=== PATIENT | female | born 1950 | race Caucasian/White ===

== ENCOUNTER 2016-06-29 08:22 | Inpatient (IN) | payer MEDICARE ==
[2016-06-29] MEDS ORDERED: SODIUM CHLORIDE 0.9% 500 ML IV STA (08:35)
[2016-06-29] MEDS ORDERED: IPRATROPIUM-ALBUTEROL 3 ML NEB INHALATION STA (08:36)
[2016-06-29] MEDS ORDERED: ONDANSETRON 4 MG/2 ML VIAL IVP STA (08:36)
--- NOTE | 2016-06-29 08:40 | ED ---
General Adult HPI - General Chief complaint: Shortness of Breath Stated complaint: SOB Time Seen by Provider: 06/29/16 08:25 Source: EMS, RN notes reviewed Mode of arrival: EMS Limitations: no limitations - History of Present Illness Initial comments: This is a 66-year-old female presents to the emergency department with a past medical history significant for coronary artery disease with stent placement, diabetes, high blood pressure, high cholesterol, a history of smoking, a previous CVA with right-sided residual paralysis. Patient comes in today because she woke up this morning had some difficulty breathing and seemed to resolve but then when she started to move around again the difficulty breathing began. Patient states she has had no recent fever or cough. Patient denies any chest pain. Patient states she's had quite a bit of postnasal drip however. Patient denies any abdominal pain patient denies vomiting but states she is nauseous. Patient denies any edema of the feet worse than normal. Patient denies any headache patient denies numbness weakness. Patient denies any lightheadedness dizziness or near syncopal episode. - Related Data Home Medications Medication Instructions Recorded Confirmed Clopidogrel [Plavix] 75 mg PO HS 06/12/15 06/29/16 Insulin Aspart [NovoLOG] 22 unit SQ AC-TID 12/10/15 06/29/16 Insulin Glargine [Lantus] 60 unit SQ HS 01/15/16 06/29/16 Diphenox-Atrop 2.5-0.025 mg 2 tab PO QID PRN 01/27/16 06/29/16 [Lomotil] Albuterol Sulfate [Proventil Hfa] 1 - 2 puff INHALATION RT-Q6H PRN 02/15/1610/10 Insulin Glargine [Lantus] 10 unit SQ AC-BRKFST 02/15/16 06/29/16 amLODIPine [Norvasc] 5 mg PO DAILY 02/18/16 06/29/16 Carvedilol [Coreg] 12.5 mg PO BID 03/23/16 06/29/16 Dicyclomine [Bentyl] 10 mg PO TID 06/16/16 06/29/16 Previous Rx's Medication Instructions Recorded Atorvastatin [Lipitor] 80 mg PO HS #30 tab 06/16/15 Pantoprazole Sodium [Protonix] 40 mg PO DAILY #30 tablet. 06/21/15 Aspirin 81 mg PO DAILY chew 08/28/15 Furosemide [Lasix] 40 mg PO DAILY #30 tab 08/28/15 Allergies Allergy/AdvReac Type Severity Reaction Status Date / Time hydralazine Allergy Mild Anaphylaxis Verified 06/29/16 09:51 codeine Allergy Nausea/ Verified 06/29/16 09:51 hard to wake up hydrocodone Allergy Unknown Verified 06/29/16 09:51 lisinopril Allergy Rapid Verified 06/29/16 09:51 Heart Rate Review of Systems ROS Statement: Those systems with pertinent positive or pertinent negative responses have been documented in the HPI. ROS Other: All systems not noted in ROS Statement are negative. Past Medical History Past Medical History: Asthma, Cancer, COPD, CVA/TIA, Diabetes Mellitus, Eye Disorder, Fibromyalgia, GI Bleed, Hyperlipidemia, Hypertension, Myocardial Infarction (IA), Osteoarthritis (OA), Pneumonia Additional Past Medical History / Comment(s): admitted to [facility] 06/18/15 to 06/21 with R femoral pseudoaneurysm which was thrombosed (had thrombin injection) and another small R femoral stable aneurysm, also acute renal failure. Pt had recent cardiac cath and R femoral PTCA with stenting of L main 06/15/15. ECHO done 06/13/15 showed mild mitral and tricuspid regurg, severe pulmonary HTN, L ventricular systolic function of 50-55%. IBS, EMPHYSEMA, UTERINE CA RADITIAON ONLY, ULCERS, STROKE 04-15-15- RT ARM FLACCID, RT LEG WEAK, low back pain x 30 yrs, migraines, was on thyroid medication as younger person and taken off, incontinent of urine-wears briefs.Pt stated has glaucoma, cataracts. Last Myocardial Infarction Date:: 06/12/15 History of Any Multi-Drug Resistant Organisms: None Reported Past Surgical History: Cholecystectomy, Heart Catheterization, Heart Catheterization With Stent Additional Past Surgical History / Comment(s): 06/12/15 Cardiac cath, 06/15/15 PTCA with stent mid L main, D&C X2, HAD A DEVICE IN FOR RADIATION TX FOR UTERINE CA THAT WAS SINCE REMOVED.EGD/COLONOSCOPY.02/18/16 heart cath 3 stents to rca Past Anesthesia/Blood Transfusion Reactions: Motion Sickness Additional Past Anesthesia/Blood Transfusion Reaction / Comment(s): CLAUSTROPHOBIA. spouse stated she has had blood transfusion in past-no reaction to blood Date of Last Stent Placement:: 06/15/15 Past Psychological History: Anxiety, Depression Additional Psychological History / Comment(s): Pt resides with her spouse. She is basically wheel chair bound most of the time for the past several yrs. She at times ambulates with assistance or pushes her wheelchair. She feeds herself. She has a supportive family. She has a sister that helps with her bathing and her олег and spouse will help with her medication. 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 Mother Family Medical History: CVA/TIA Additional Family Medical History / Comment(s): HEART PROBLEMS, STARTED DRINKING AFTER OF HER , she of a ruptured liver at age 58 yrs. General Exam - General Exam Comments Initial Comments: GENERAL: Patient is well-developed and well-nourished. Patient is nontoxic and well- hydrated and is in mild distress. ENT: Neck is soft and supple. No significant lymphadenopathy is noted. Oropharynx is clear. Moist mucous membranes. Neck has full range of motion without eliciting any pain. EYES: The sclera were anicteric and conjunctiva were pink and moist. Extraocular movements were intact and pupils were equal round and reactive to light. Eyelids were unremarkable. PULMONARY: Patient has diminished breath sounds throughout CARDIOVASCULAR: There is a regular rate and rhythm without any murmurs gallops or rubs. ABDOMEN: Soft and nontender with normal bowel sounds. No palpable organomegaly was noted. There is no palpable pulsatile mass. SKIN: Skin is clear with no lesions or rashes and otherwise unremarkable. NEUROLOGIC: Patient is alert and oriented x3. Cranial nerves II through XII are grossly intact. Patient is unable to move the right hand or the right foot. MUSCULOSKELETAL: Normal extremities with adequate strength and full range of motion. 1+ edema to the right leg slight edema to the left LYMPHATICS: No significant lymphadenopathy is noted PSYCHIATRIC: Normal psychiatric evaluation. Normal interpersonal interactions appears functionally intact in deals appropriately with others. No signs of depression. No signs of anxiety. Limitations: no limitations Course Vital Signs 06/29/16 06/29/16 06/29/16 08:23 08:31 08:34 Temperature 99.1 F Pulse Rate 84 Respiratory 20 20 Rate Blood Pressure 243/120 167/67 O2 Sat by Pulse 93 L 93 L Oximetry 06/29/16 06/29/16 08:55 09:05 Temperature Pulse Rate 78 73 Respiratory Rate Blood Pressure O2 Sat by Pulse Oximetry Medical Decision Making - Medical Decision Making EKG shows normal sinus rhythm at 80 bpm. It was 202 QRS is 82 QT interval 392 QTC is 452. Patient's EKG shows some T-wave inversions in leads 1 and aVL which are seen on the old EKG that I compared to. No changes from the old EKG are noted Chest x-ray shows acute pulmonary edema. I started the patient on Lasix and Nitropaste. I spoke with Dr. Carl he agreed to admit the patient reportedly or discontinue the Lasix and nitro paste on the floor. - Lab Data Result diagrams: 06/29/16 08:33 06/29/16 08:33 Lab Results 06/29/16 06/29/16 06/29/16 Range/Units 08:33 08:33 08:33 WBC 9.4 (3.8-10.6) k/uL RBC 4.09 (3.80-5.40) m/uL Hgb 9.8 L (11.4-16.0) gm/dL Hct 30.9 L (34.0-46.0) % MCV 75.5 L (80.0-100.0) fL MCH 23.9 L (25.0-35.0) pg MCHC 31.7 (31.0-37.0) g/dL RDW 15.6 H (11.5-15.5) % Plt Count 218 (150-450) k/uL Neutrophils % 84 % Lymphocytes % 8 % Monocytes % 3 % Eosinophils % 4 % Basophils % 0 % Neutrophils # 7.9 H (1.3-7.7) k/uL Lymphocytes # 0.8 L (1.0-4.8) k/uL Monocytes # 0.3 (0-1.0) k/uL Eosinophils # 0.4 (0-0.7) k/uL Basophils # 0.0 (0-0.2) k/uL Hypochromasia Marked Poikilocytosis Slight Microcytosis Slight PT (9.0-12.0) sec INR (<1.1) APTT (22.0-30.0) sec Sodium 143 (137-145) mmol/L Potassium 4.7 (3.5-5.1) mmol/L Chloride 105 (98-107) mmol/L Carbon Dioxide 24 (22-30) mmol/L Anion Gap 14 mmol/L BUN 32 H (7-17) mg/dL Creatinine 1.21 H (0.52-1.04) mg/dL Est GFR (MDRD) Af Amer 54 (>60 ml/min/1.73 sqM) Est GFR (MDRD) Non-Af 45 (>60 ml/min/1.73 sqM) Glucose 417 H (74-99) mg/dL Calcium 8.9 (8.4-10.2) mg/dL Magnesium 1.7 (1.6-2.3) mg/dL Total Bilirubin 0.6 (0.2-1.3) mg/dL AST 20 (14-36) U/L ALT 34 (9-52) U/L Alkaline Phosphatase 117 (38-126) U/L Total Creatine Kinase 63 (30-135) U/L CK-MB (CK-2) 1.1 (0.0-2.4) ng/mL CK-MB (CK-2) Rel Index 1.7 Troponin I <0.012 (0.000-0.034) ng/mL NT-Pro-B Natriuret Pep pg/mL Total Protein 6.5 (6.3-8.2) g/dL Albumin 3.4 L (3.5-5.0) g/dL 06/29/16 06/29/16 Range/Units 08:33 08:33 WBC (3.8-10.6) k/uL RBC (3.80-5.40) m/uL Hgb (11.4-16.0) gm/dL Hct (34.0-46.0) % MCV (80.0-100.0) fL MCH (25.0-35.0) pg MCHC (31.0-37.0) g/dL RDW (11.5-15.5) % Plt Count (150-450) k/uL Neutrophils % % Lymphocytes % % Monocytes % % Eosinophils % % Basophils % % Neutrophils # (1.3-7.7) k/uL Lymphocytes # (1.0-4.8) k/uL Monocytes # (0-1.0) k/uL Eosinophils # (0-0.7) k/uL Basophils # (0-0.2) k/uL Hypochromasia Poikilocytosis Microcytosis PT 10.9 (9.0-12.0) sec INR 1.1 (<1.1) APTT 25.4 (22.0-30.0) sec Sodium (137-145) mmol/L Potassium (3.5-5.1) mmol/L Chloride (98-107) mmol/L Carbon Dioxide (22-30) mmol/L Anion Gap mmol/L BUN (7-17) mg/dL Creatinine (0.52-1.04) mg/dL Est GFR (MDRD) Af Amer (>60 ml/min/1.73 sqM) Est GFR (MDRD) Non-Af (>60 ml/min/1.73 sqM) Glucose (74-99) mg/dL Calcium (8.4-10.2) mg/dL Magnesium (1.6-2.3) mg/dL Total Bilirubin (0.2-1.3) mg/dL AST (14-36) U/L ALT (9-52) U/L Alkaline Phosphatase (38-126) U/L Total Creatine Kinase (30-135) U/L CK-MB (CK-2) (0.0-2.4) ng/mL CK-MB (CK-2) Rel Index Troponin I (0.000-0.034) ng/mL NT-Pro-B Natriuret Pep 1810 pg/mL Total Protein (6.3-8.2) g/dL Albumin (3.5-5.0) g/dL Critical Care Time Critical Care Time: Yes Total Critical Care Time: 35 Disposition Clinical Impression: Acute pulmonary edema Disposition: ADMITTED IP TO THIS [facility] Time of Disposition: 10:17
[2016-06-29 08:55] LABS: Basophils % (A) 0 %; CH 22.8; CHCM 30.3; Eosinophils # (A) 0.4 k/uL (0-0.7); Eosinophils % (A) 4 %; HCT 30.9 % (34.0-46.0); HDW 3.72; HGB 9.8 gm/dL (11.4-16.0); Hypochromasia Marked; Luc # (Auto) 0.09; Luc % (Auto) 1; Lymphocytes # (A) 0.8 k/uL (1.0-4.8); Lymphocytes % (A) 8 %; MCH 23.9 pg (25.0-35.0); MCHC 31.7 g/dL (31.0-37.0); MCV 75.5 fL (80.0-100.0); Mean Platelet Volume 6.8; Microcytosis Slight; Monocytes # (A) 0.3 k/uL (0-1.0); Monocytes % (A) 3 %; Neutrophils # (A) 7.9 k/uL (1.3-7.7); Neutrophils % (A) 84 %; Poikilocytosis Slight; RBC 4.09 m/uL (3.80-5.40); RDW 15.6 % (11.5-15.5); WBC 9.4 k/uL (3.8-10.6)
[2016-06-29 09:07] LABS: INR 1.1 (<1.1); Partial Thromboplastin Time 25.4 sec (22.0-30.0); Prothrombin Time 10.9 sec (9.0-12.0)
[2016-06-29 09:28] LABS: Creatine Kinase 63 U/L (30-135)
[2016-06-29 09:31] LABS: Calcium 8.9 mg/dL (8.4-10.2); Magnesium 1.7 mg/dL (1.6-2.3); Potassium 4.7 mmol/L (3.5-5.1); Total Bilirubin 0.6 mg/dL (0.2-1.3); Total Protein 6.5 g/dL (6.3-8.2)
--- NOTE | 2016-06-29 09:35 | XR ---
EXAMINATION TYPE: XR chest 2V DATE OF EXAM: 06/29/2016 9:21 AM COMPARISON: Prior chest x-ray dated 01 February 2016 HISTORY: Difficulty breathing TECHNIQUE: Frontal and lateral views of the chest are obtained. FINDINGS: Some minimal blunting of the posterior costophrenic angles. Prominent lung findings could be degenerative of underlying COPD. Heart is enlarged. Interstitial and central vascularity are promi nent. No evident pneumothorax. IMPRESSION: Correlate for pulmonary venous hypertension and interstitial edema, there may be small e ffusion, basilar atelectasis, correlate to exclude pneumonia. Patient is rotated. Follow-up suggested .
[2016-06-29 09:41] LABS: Creatine Kinase MB 1.1 ng/mL (0.0-2.4); Troponin I <0.012 ng/mL (0.000-0.034)
[2016-06-29] MEDS ORDERED: FUROSEMIDE 10 MG/ML 10 ML VIAL IV STA (10:16)
[2016-06-29] MEDS ORDERED: NITROGLYCERIN OINT 1 INCH/GM PACKET TOPICAL STA (10:16)
[2016-06-29] MEDS ORDERED: INSULIN LISPRO (humaLOG) 300 UNIT/3 ML VIAL SQ ONE ×2 (11:00→13:00)
[2016-06-29] MEDS ORDERED: ACETAMINOPHEN TAB 500 MG TAB PO STA (11:06)
[2016-06-29 11:46] LABS: Glucose,Whole Blood 504 mg/dL (75-99)
[2016-06-29] MEDS: INSULIN LISPRO (humaLOG) 300 UNIT/3 ML VIAL SQ SCH ×2 (12:22→17:34)
[2016-06-29] MEDS ORDERED: LABETALOL SYRINGE 5 MG/ML IVP STA (12:47)
[2016-06-29 12:53] LABS: Glucose,Whole Blood 551 mg/dL (75-99)
[2016-06-29] MEDS: amLODIPine 5 MG TAB PO SCH (13:55)
[2016-06-29] MEDS: CARVEDILOL 12.5 MG TAB PO SCH ×2 (13:55→17:36)
[2016-06-29 14:06] LABS: Glucose,Whole Blood 525 mg/dL (75-99)
[2016-06-29] MEDS ORDERED: INSULIN REGULAR 100 UNIT/ML VIAL IV STA (14:22)
[2016-06-29 14:27] LABS: Hemoglobin A1C 9.5 % (4.2-6.1)
[2016-06-29 15:40] LABS: Glucose,Whole Blood 472 mg/dL (75-99)
[2016-06-29] MEDS ORDERED: INSULIN REGULAR 100 UNIT/ML VIAL SQ ONE (16:58)
[2016-06-29] MEDS ORDERED: DIPHENOX-ATROP 2.5-0.025 MG 1 EACH TAB PO PRN (17:01)
[2016-06-29] MEDS ORDERED: ALBUTEROL NEBULIZED 2.5 MG/3 ML INHALATION PRN (17:01)
[2016-06-29 17:05] LABS: Glucose,Whole Blood 450 mg/dL (75-99)
[2016-06-29] MEDS ORDERED: INSULIN LISPRO (humaLOG) 300 UNIT/3 ML VIAL SQ SCH (17:30)
[2016-06-29] MEDS: FUROSEMIDE 10 MG/ML 4 ML VIAL IV SCH ×2 (17:36→23:06)
[2016-06-29] MEDS ORDERED: ALPRAZolam 0.25 MG TAB PO PRN (18:25)
[2016-06-29] MEDS: NITROGLYCERIN OINT 1 INCH/GM PACKET TOPICAL SCH ×2 (18:44→22:06)
[2016-06-29] MEDS ORDERED: TEMAZEPAM 15 MG CAP PO PRN (19:03)
[2016-06-29 20:21] LABS: Glucose,Whole Blood 406 mg/dL (75-99)
[2016-06-29] MEDS ORDERED: NON-FORMULARY DRUG (Carvedilol [Coreg] 12.5 MG) PO SCH (21:00)
[2016-06-29] MEDS: INSULIN REGULAR 100 UNIT in SODIUM CHLORIDE 0.9% 100 ML IV SCH (21:56)
[2016-06-29] MEDS: DICYCLOMINE 10 MG CAP PO SCH ×2 (21:58→22:06)
[2016-06-29] MEDS: ATORVASTATIN 80 MG TAB PO SCH (21:58)
[2016-06-29] MEDS: CLOPIDOGREL 75 MG TAB PO SCH (21:58)
[2016-06-29 22:35] LABS: Glucose,Whole Blood 364 mg/dL (75-99)
[2016-06-29 23:12] LABS: Glucose,Whole Blood 337 mg/dL (75-99)
[2016-06-29 23:31] LABS: Appearance,Urine Cloudy (Clear); Bilirubin,Urine Negative (Negative); Glucose,Urine (UA) 2+ (Negative); Ketones,Urine Negative (Negative); Leukocyte Esterase,Urine Trace (Negative); Mucus,Urine Rare /hpf; Nitrite,Urine Negative (Negative); PH, Urine 5.5 (5.0-8.0); Particle Count 8312; Protein,Urine 2+ (Negative); RBC,Urine >182 /hpf (0-5); Squamous Epithelial Cell,Urine 1 /hpf (0-4); UA Billing (MACRO vs. MICRO) MICRO; Urobilinogen,Urine <2.0 mg/dL (<2.0); WBC,Urine 18 /hpf (0-5)
[2016-06-29 23:45] LABS: Glucose,Whole Blood 330 mg/dL (75-99)
[2016-06-29] MEDS: ACETAMINOPHEN TAB 500 MG TAB PO PRN (23:58)
[2016-06-30 00:22] LABS: Glucose,Whole Blood 306 mg/dL (75-99)
[2016-06-30 00:53] LABS: Glucose,Whole Blood 284 mg/dL (75-99)
[2016-06-30 01:26] LABS: Glucose,Whole Blood 279 mg/dL (75-99)
[2016-06-30 01:59] LABS: Glucose,Whole Blood 248 mg/dL (75-99)
[2016-06-30 03:07] LABS: Glucose,Whole Blood 208 mg/dL (75-99)
[2016-06-30 05:15] LABS: Glucose,Whole Blood 194 mg/dL (75-99)
[2016-06-30 06:19] LABS: Glucose,Whole Blood 233 mg/dL (75-99)
[2016-06-30 06:47] LABS: Basophils % (A) 0 %; CH 22.8; CHCM 30.5; Eosinophils % (A) 0 %; HCT 26.6 % (34.0-46.0); HDW 3.66; Hypochromasia Marked; Luc # (Auto) 0.14; Luc % (Auto) 1; Lymphocytes # (A) 0.9 k/uL (1.0-4.8); Lymphocytes % (A) 8 %; MCH 23.2 pg (25.0-35.0); Mean Platelet Volume 6.6; Microcytosis Slight; Monocytes # (A) 0.6 k/uL (0-1.0); Monocytes % (A) 6 %; Neutrophils % (A) 85 %; Poikilocytosis Slight; RBC 3.55 m/uL (3.80-5.40); RDW 15.8 % (11.5-15.5); WBC 10.7 k/uL (3.8-10.6); WBC (Perox) 10.84
[2016-06-30 06:49] LABS: HGB 8.2 gm/dL (11.4-16.0)
[2016-06-30] MEDS: PANTOPRAZOLE 40 MG TABLET PO SCH (07:00)
[2016-06-30] MEDS: CARVEDILOL 12.5 MG TAB PO SCH ×2 (07:00→17:42)
[2016-06-30 07:03] LABS: Calcium 9.3 mg/dL (8.4-10.2); Potassium 4.8 mmol/L (3.5-5.1)
--- NOTE | 2016-06-30 07:46 | HP ---
DATE OF ADMISSION: CHIEF COMPLAINT: Shortness of breath. HISTORY OF PRESENT ILLNESS: This 66-year-old woman with a past medical history of CHF, history of asthma, history of COPD, history of CVA, TIA, history of diabetes mellitus type 2, eye disorder, fibromyalgia, GI bleed, hyperlipidemia, hypertension, myocardial infarction, pneumonia being followed by Dr. Tyler Hermosillo in the outpatient setting was complaining of shortness of breath. The patient recently was admitted with uterine malignancy. [employer] oncology evaluation pending at this time. Currently, the patient complains of increased shortness of breath and the patient woke up this morning and the patient is unable to ambulate because of increasing shortness of breath. Patient came to [facility] and was admitted for further evaluation and treatment. The patient also had some postnasal drip, also some cough is also reported. The patient came to [facility] with complaints features of CHF and as well as some pleural effusion, mainly on the left side and atelectasis also noted. The patient was admitted further evaluation. After diuretics, patient is feeling much better now. No chest pain or palpitation, no fever. PAST MEDICAL HISTORY: History of asthma, history of CHF, COPD, CVA, TIA, diabetes mellitus type 2, eye disorder, fibromyalgia, GI bleed, hypertension, hyperlipidemia, myocardial infarction, history of DJD, history of pneumonia, history of history of cholecystectomy, history f CAD, stent, history of anxiety and depression. Medications prior to admission, home medications are: 1. Norvasc 5 mg p.o. daily. 2. Protonix 40 mg daily. 3. Lantus 10 units subcu a.c. breakfast and 60 units a.c. at bedtime. 4. NovoLog 22 units subcu a.c. t.i.d. 5. Lasix 40 mg p.o. daily. 6. Lomotil 2 tablets q.i.d. p.r.n. 7. Bentyl 10 mg p.o. t.i.d. 8. Plavix 75 mg q.h.s. 9. Coreg 12.5 mg p.o. b.i.d. 10. Lipitor 80 mg q.h.s. 11. Aspirin 81 mg p.o. daily. 12. Proventil 1 to 2 puffs q.6 p.r.n. Allergies are HYDRALAZINE, CODEINE, HYDROCODONE, LISINOPRIL. FAMILY HISTORY: History of CVA, TIA, history of EtOH, history of pancreatitis, liver cancer. SOCIAL HISTORY: History of smoking. No history of alcohol intake. REVIEW OF SYSTEMS: ENT: No diminished hearing or diminished vision. CARDIOVASCULAR SYSTEM: As mentioned earlier. RESPIRATORY: As mentioned earlier. GI: As mentioned earlier. : As mentioned earlier. NERVOUS SYSTEM: No numbness or weakness. ALLERGY/IMMUNOLOGY: No asthma or hayfever. MUSCULOSKELETAL: As mentioned earlier. HEMATOLOGY/ONCOLOGY: No history of anemia. ENDOCRINE: Diabetes mellitus. CONSTITUTIONAL: As mentioned earlier. DERMATOLOGY: Negative. RHEUMATOLOGY: Negative. PSYCHIATRY: As mentioned earlier. PHYSICAL EXAMINATION: The patient is alert and oriented x3. Pulse 81, blood pressure 157/74, respirations 18, temperature 97.4, pulse ox 91% on room air. HEENT: Conjunctivae normal. NECK: No jugular venous distention. CARDIOVASCULAR: S1 and S2, muffled. RESPIRATORY: Breath sounds diminished at the bases. Bilateral scattered rhonchi and crackles. Abdomen is soft, obese, nontender. No mass palpable. LEGS: No edema, no swelling. NERVOUS SYSTEM: Higher function as mentioned. Moves all 4 limbs. No focal deficits. LYMPHATICS: No lymphadenopathy of neck, axillae or groin. SKIN: No ulcers, rashes or bleeding. LABS: WBC 9.4, hemoglobin is 9.8 and creatinine is 1.2 and glucose 450. ASSESSMENT: 1. Shortness of breath with congestive heart failure, acute exacerbation ejection fraction 40% to 45% and acute on chronic systolic dysfunction. 2. Mild valvular abnormalities. 3. Diabetes mellitus type 2, uncontrolled. 4. Obesity, body mass index of 40.1. 5. History of recent anemia and genitourinary bleeding. 6. History of asthma, chronic obstructive pulmonary disease. 7. History of cerebrovascular accident/ transient ischemic attack. 8. Diabetes mellitus type 2. 9. Fibromyalgia. 10. History of gastrointestinal bleed. 11. Hypertension. 12. Hyperlipidemia. 13. History of myocardial infarction. 14. History of degenerative joint disease. 15. History of pneumonia. 16. History of femoral pseudoaneurysm. 17. Severe pulmonary hypertension. 18. History of irritable bowel syndrome. 19. History of gastric ulcer. 20. History of stroke and cerebrovascular accident. 21. History of cholecystectomy. 22. History of coronary artery disease and stent. 23. History of claustrophobia. 24. Anxiety, depression, not otherwise specified. 25. Remote history of nicotine dependence. 26. FULL CODE. RECOMMENDATIONS AND DISCUSSION: In this 66-year-old woman who presented with multiple complex medial issues, will monitor the patient closely. Continue the current medications. Continue symptomatic treatment. Will initiate IV Lasix 3 times daily. Continue the home medications. As far as the blood sugars are concerned, I would recommend to resume the home dose units of regular and if the blood sugar is not controlled I would recommend insulin drip until the blood sugars are like 200. Otherwise, resume the rest of the home medications. Cardiology consultation. Continue with beta blockers. Guarded prognosis because of multiple complex medical issues. Further recommendations to follow. Follow-up lab tests also have been ordered. A copy of dictation forwarded to Dr. Tyler Hermosillo who is the primary physician. [place]
[2016-06-30 08:14] LABS: Glucose,Whole Blood 264 mg/dL (75-99)
[2016-06-30] MEDS: FUROSEMIDE 10 MG/ML 4 ML VIAL IV SCH (08:32)
[2016-06-30] MEDS: DICYCLOMINE 10 MG CAP PO SCH ×4 (08:32→20:57)
[2016-06-30] MEDS: ASPIRIN 81 MG CHEW PO SCH (08:32)
[2016-06-30] MEDS: amLODIPine 5 MG TAB PO SCH (08:33)
[2016-06-30] MEDS: NITROGLYCERIN OINT 1 INCH/GM PACKET TOPICAL SCH ×4 (08:45→20:32)
[2016-06-30] MEDS: INSULIN LISPRO (humaLOG) 300 UNIT/3 ML VIAL SQ SCH ×3 (08:52→17:42)
[2016-06-30] MEDS ORDERED: amLODIPine 5 MG TAB PO SCH (09:00)
[2016-06-30 10:14] LABS: Glucose,Whole Blood 277 mg/dL (75-99)
--- NOTE | 2016-06-30 10:34 | P.CRDCN ---
History of Present Illness Consult date: 06/30/16 Requesting physician: Mike Carl Consult reason: shortness of breath Chief complaint: Shortness of breath History of present illness: This is a pleasant 66-year-old female who follows regularly with Dr. Ricci in the office area she has a known history of coronary artery disease with prior stent placement of the mid left main in 2014, most recently patient underwent successful stenting of the mid ,proximal and distal RCA in January 2016 , history of anemia, diabetes, hypertension, hyperlipidemia, who was recently in the hospital last month with acute blood loss anemia and GI bleed, she underwent an EGD and colonoscopy, EGD revealed gastritis and duodenitis, colonoscopy revealed sigmoid diverticulosis without active bleeding, external hemorrhoids with acute inflammation, internal hemorrhoids, and evidence of vaginal bleeding. Patient has also been evaluated as an outpatient for significant vaginal bleeding and has a history of cancer for which she was recommended a hysterectomy several years ago. Patient presents to the hospital with sudden onset of shortness of breath, she states that she got up in the morning, tried to get up to go to the bathroom and became extremely short of breath. If she would sit and rest her breathing was stable, however the moment she exerted herself she again became extremely short of breath. She denies any chest pain. She does state that last evening she had a large amount of vaginal bleeding. Hemoglobin on admission 9.8, down to 8.2 this morning. BUN yesterday 32 creatinine 1.2, 49 and 1.5 this morning. BNP level 1810, troponin 0.012. EKG on arrival showed a normal sinus rhythm with no acute changes. Chest x-ray suggested pulmonary venous hypertension and interstitial edema. Patient was initiated on IV Lasix in the emergency room, she states that she diuresed a significant amount through the night last night. Most recent echocardiogram with Doppler study was performed in January of last year which revealed an ejection fraction of 40-45%. I pressure this morning 148/60, heart rate, 92. At the time of my examination this morning, patient states her breathing is back to normal. She has had no further noted vaginal bleeding. Patient is currently on aspirin 81 mg daily, Plavix 75 mg daily, Lipitor 80 mg daily, Coreg 12-1/2 mg twice a day, 40 of Lasix IV every 8 hourly, Norvasc 5 mg daily, and a Nitropaste. Past Medical History Past Medical History: Asthma, Cancer, Heart Failure, COPD, CVA/TIA, Diabetes Mellitus, Eye Disorder, Fibromyalgia, GI Bleed, Hyperlipidemia, Hypertension, Myocardial Infarction (CA), Osteoarthritis (OA), Pneumonia Additional Past Medical History / Comment(s): Pt recently admitted on 06/20/16 with acute blood loss anemia, possible uterine lesion/cancer (pt has hx of uterine cancer tx with radiation), cystitis and vaginal bleeding. 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 Last Myocardial Infarction Date:: 06/12/15 History of Any Multi-Drug Resistant Organisms: None Reported Past Surgical History: Cholecystectomy, Heart Catheterization, Heart Catheterization With Stent Additional Past Surgical History / Comment(s): 06/12/15 Cardiac cath, 06/15/15 PTCA with stent mid L main, D&C X2, YRS AGO HAD A DEVICE IN FOR RADIATION TX FOR UTERINE CA THAT WAS SINCE REMOVED.EGD/COLONOSCOPY.02/18/16 heart cath 3 stents to rca Past Anesthesia/Blood Transfusion Reactions: Motion Sickness Additional Past Anesthesia/Blood Transfusion Reaction / Comment(s): CLAUSTROPHOBIA. Pt has had blood transfusion in past-no reaction to blood Date of Last Stent Placement:: 02/18/16 Past Psychological History: Anxiety, Depression Additional Psychological History / Comment(s): Pt resides with her spouse. She is basically wheel chair bound most of the time for the past several yrs. She at times ambulates with assistance or pushes her wheelchair. She feeds herself. She has a supportive family. She has a sister that helps with her bathing and her олег and spouse will help with her medication. 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 Mother Family Medical History: CVA/TIA Additional Family Medical History / Comment(s): HEART PROBLEMS, STARTED DRINKING AFTER OF HER , she of a ruptured liver at age 59 yrs. Medications and Allergies Home Medications Medication Instructions Recorded Confirmed Type Clopidogrel [Plavix] 75 mg PO HS 06/12/15 06/29/16 History Insulin Aspart [NovoLOG] 22 unit SQ AC-TID 12/10/15 06/29/16 History Insulin Glargine [Lantus] 60 unit SQ HS 01/15/16 06/29/16 History Diphenox-Atrop 2.5-0.025 mg 2 tab PO QID PRN 01/27/16 06/29/16 History [Lomotil] Albuterol Sulfate [Proventil Hfa] 1 - 2 puff INHALATION RT-Q6H PRN 02/15/1610/10 History Insulin Glargine [Lantus] 10 unit SQ AC-BRKFST 02/15/16 06/29/16 History amLODIPine [Norvasc] 5 mg PO DAILY 02/18/16 06/29/16 History Carvedilol [Coreg] 12.5 mg PO BID 03/23/16 06/29/16 History Dicyclomine [Bentyl] 10 mg PO TID 06/16/16 06/29/16 History Allergies Allergy/AdvReac Type Severity Reaction Status Date / Time hydralazine Allergy Mild Anaphylaxis Verified 06/29/16 09:51 codeine Allergy Nausea/ Verified 06/29/16 09:51 hard to wake up hydrocodone Allergy Unknown Verified 06/29/16 09:51 lisinopril Allergy Rapid Verified 06/29/16 09:51 Heart Rate Physical Exam Vitals: Vital Signs Temp Pulse Pulse Resp BP BP Pulse Ox 06/30/16 08:00 97.1 F L 69 18 148/62 92 L 06/30/16 04:00 70 16 158/69 94 L 06/30/16 00:00 81 18 161/69 96 06/29/16 20:45 98.2 F 80 18 153/99 97 06/29/16 16:45 97.4 F L 81 18 157/74 91 L 06/29/16 16:08 96.5 F L 06/29/16 15:40 82 16 164/71 97 06/29/16 14:13 77 18 157/67 95 06/29/16 14:08 78 16 166/70 96 06/29/16 13:49 87 18 190/79 95 06/29/16 13:05 74 18 188/77 97 06/29/16 11:13 184/78 06/29/16 10:55 79 17 220/83 94 L Intake and Output 06/29/16 06/30/16 06/30/16 22:59 06:59 14:59 Intake Total 370.302 365.395 13.787 Output Total 400 Balance 370.302 -34.605 13.787 Intake: Intake, IV Titration 10.302 65.395 13.787 Amount Insulin Regular 100 unit 10.302 65.395 13.787 In Sodium Chloride 0.9% 100 ml @ Titrate IV .Q0M [facility] Rx#:[id number] Oral 360 300 Output: Urine 400 Other: Voiding Method Toilet # Voids 1 1 Weight 101.3 kg PHYSICAL EXAMINATION: HEENT: Head is atraumatic, normocephalic. Pupils equal, round. Neck is supple. There is no elevated jugular venous pressure. HEART EXAMINATION: Heart S1, S2 normal. No murmur or gallop heard. CHEST EXAMINATION: Lungs are clear to auscultation and precussion. No chest wall tenderness is noted on palpation or with deep breathing. ABDOMEN: Soft, nontender. Bowel sounds are heard. No organomegaly noted. EXTREMITIES: 2+ peripheral pulses with no evidence of peripheral edema and no calf tenderness noted. NEUROLOGIC patient is awake, alert and oriented -3. . Results 06/30/16 05:45 06/30/16 05:45 CBC 06/30/16 Range/Units 05:45 WBC 10.7 H (3.8-10.6) k/uL RBC 3.55 L (3.80-5.40) m/uL Hgb 8.2 L D (11.4-16.0) gm/dL Hct 26.6 L (34.0-46.0) % Plt Count 221 (150-450) k/uL Comprehensive Metabolic Panel 06/30/16 Range/Units 05:45 Sodium 142 (137-145) mmol/L Potassium 4.8 (3.5-5.1) mmol/L Chloride 103 (98-107) mmol/L Carbon Dioxide 25 (22-30) mmol/L BUN 49 H (7-17) mg/dL Creatinine 1.55 H (0.52-1.04) mg/dL Glucose 196 H (74-99) mg/dL Calcium 9.3 (8.4-10.2) mg/dL Current Medications Generic Name Dose Route Start Last Admin Trade Name Freq PRN Reason Stop Dose Admin Acetaminophen 500 mg 06/29/16 15:46 06/29/16 23:58 Tylenol Tab PO 500 mg Q6HR PRN Administration Fever and/ or Pain Albuterol Sulfate 2.5 mg 06/29/16 17:01 Ventolin Nebulized INHALATION RT-Q6H PRN Shortness Of Breath Alprazolam 0.25 mg 06/29/16 18:25 Xanax PO QID PRN Anxiety Amlodipine Besylate 5 mg 06/29/16 13:30 06/30/16 08:33 Norvasc PO 5 mg DAILY DUSTIN Administration Aspirin 81 mg 06/30/16 09:00 06/30/16 08:32 Aspirin PO 81 mg DAILY DUSTIN Administration Atorvastatin Calcium 80 mg 06/29/16 21:00 06/29/16 21:58 Lipitor PO 80 mg HS DUSTIN Administration Carvedilol 12.5 mg 06/29/16 13:30 06/30/16 07:00 Coreg PO 12.5 mg BID-W/MEALS [facility] Administration Clopidogrel Bisulfate 75 mg 06/29/16 21:00 06/29/16 21:58 Plavix PO 75 mg HS [facility] Administration Dicyclomine HCl 10 mg 06/29/16 22:00 06/30/16 08:54 Bentyl PO Not Given TID [facility] Diphenoxylate HCl/Atropine 2 each 06/29/16 17:01 Lomotil PO QID PRN Diarrhea Furosemide 40 mg 06/29/16 17:00 06/30/16 08:32 Lasix IV 40 mg Q8HR DUSTIN Administration Insulin Human Regular 100 unit 101 mls @ 0 mls/hr 06/29/16 20:45 06/30/16 08: 18 / Sodium Chloride IV 8.5 unit/hr .Q0M DUSTIN 8.58 mls/hr Protocol Titration Titrate Insulin Glargine 10 unit 06/30/16 07:30 Lantus SQ AC-BRKFST DUSTIN Insulin Glargine 60 unit 06/29/16 21:00 Lantus SQ HS DUSTIN Insulin Human Lispro 0 unit 06/29/16 12:30 06/29/16 17:34 Humalog SQ 8 unit ACHS DUSTIN Administration Protocol Insulin Human Lispro 22 unit 06/30/16 07:30 Humalog SQ AC-TID DUSTIN Insulin Human Lispro 13 unit 06/30/16 07:30 06/30/16 08:52 Humalog SQ 13 unit AC-TID DUSTIN Administration Nitroglycerin 1 inch 06/29/16 18:00 06/30/16 08:45 Nitro-Bid Oint TOPICAL Not Given QID DUSTIN Pantoprazole Sodium 40 mg 06/30/16 07:30 06/30/16 07:00 Protonix PO 40 mg AC-BRKFST DUSTIN Administration Temazepam 15 mg 06/29/16 19:03 Restoril PO HS PRN Insomnia Intake and Output 06/29/16 06/30/16 06/30/16 22:59 06:59 14:59 Intake Total 370.302 365.395 13.787 Output Total 400 Balance 370.302 -34.605 13.787 Intake: Intake, IV Titration 10.302 65.395 13.787 Amount Insulin Regular 100 unit 10.302 65.395 13.787 In Sodium Chloride 0.9% 100 ml @ Titrate IV .Q0M [facility] Rx#:[id number] Oral 360 300 Output: Urine 400 Other: Voiding Method Toilet # Voids 1 1 Weight 101.3 kg 06/30/16 05:45 06/30/16 05:45 EKG Interpretations (text) EKG shows a normal sinus rhythm with no acute changes. Assessment and Plan Plan: Assessment and plan #1 symptoms of sudden onset of shortness of breath, likely secondary to anemia and mild congestive cardiac failure, systolic in nature. Patient diuresed well through the night on IV Lasix, creatinine 1.5 today. Most recent echocardiogram with Doppler study was performed in January of last year which revealed an ejection fraction of 40-45%. #2 anemia, hemoglobin 9.8 on admission, 8.2 this morning. #3 recent vaginal bleeding #4 recent admission with acute blood loss anemia, colonoscopy and EGD performed with major findings. #5 history of coronary artery disease with prior stenting of the left main in 2014, RCA stent performed in January of last year, patient is on aspirin and Plavix. 6 hypertension #7 diabetes #8 hyperlipidemia #9 history of uterine CA Plan From cardiology's perspective we will repeat an echocardiogram with Doppler study. We will also discontinue the IV Lasix and put the patient back on her oral diuretics. Continue aspirin and Plavix because of the recent stent placement in January. Recommend evaluation for vaginal bleeding. Patient is scheduled to see her [employer] I INSTRUCTIONAL ASSISTANT oncologist on the 16 of this month. Further recommendations to follow. DNP note has been reviewed, I agree with a documented findings and plan of care. Patient was seen and examined.
[2016-06-30 11:21] LABS: Glucose,Whole Blood 207 mg/dL (75-99)
--- NOTE | 2016-06-30 12:04 | ECHOF ---
Referral Reason:sob MEASUREMENTS -------- HEIGHT: 154.9 cm WEIGHT: 101.2 kg BP: 148/62 IVSd: 1.5 cm (0.6 - 1.1) LVIDd: 4.6 cm (3.9 - 5.3) LVPWd: 1.5 cm (0.6 - 1.1) IVSs: 2.1 cm LVIDs: 3.3 cm LVPWs: 1.9 cm Ao Diam: 2.8 cm (2.0 - 3.7) AV Cusp: 1.7 cm (1.5 - 2.6) LA Diam: 3.9 cm (2.7 - 3.8) MV EXCURSION: 17.180 mm (> 18.000) MV EF SLOPE: 79 mm/s (70 - 150) EPSS: 0.8 cm MV E Felipe: 1.31 m/s MV DecT: 249 ms MV A Felipe: 1.35 m/s MV E/A Ratio: 0.97 RAP: 10.00 mmHg RVSP: 22.29 mmHg FINDINGS -------- Sinus rhythm. This was a technically difficult study with suboptimal views. There is moderate concentric left ventricular hypertrophy. Overall left ventricular systolic function is normal with, an EF between 55 - 60 %. RV Promident The left atrium is normal in size. The right atrium is normal in size. 1.5mg of Definity was utilized for enhancement of images Aortic valve is trileaflet and is mildly thickened. The mitral valve leaflets are mildly thickened. Mild mitral regurgitation is present. Mild tricuspid regurgitation present. The right ventricular systolic pressure, as measured by Doppler, is 22.29mmHg. The aortic root size is normal. The inferior vena cava is mildly dilated. There is a trivial pericardial effusion present. CONCLUSIONS -------- 1. Sinus rhythm. 2. The mitral valve leaflets are mildly thickened. 3. Mild mitral regurgitation is present. 4. Mild tricuspid regurgitation present. 5. The right ventricular systolic pressure, as measured by Doppler, is 22.29mmHg. 6. The aortic root size is normal. 7. The inferior vena cava is mildly dilated. 8. There is a trivial pericardial effusion present. 9. This was a technically difficult study with suboptimal views. 10. There is moderate concentric left ventricular hypertrophy. 11. Overall left ventricular systolic function is normal with, an EF between 55 - 60 %. 12. RV Promident 13. The left atrium is normal in size. 14. The right atrium is normal in size. 15. 1.5mg of Definity was utilized for enhancement of images 16. Aortic valve is trileaflet and is mildly thickened. LOSS CONTROL CONSULTANT: Salima Myers RDCS
[2016-06-30 12:21] LABS: Glucose,Whole Blood 163 mg/dL (75-99)
[2016-06-30] MEDS: INSULIN REGULAR 100 UNIT in SODIUM CHLORIDE 0.9% 100 ML IV SCH (12:21)
[2016-06-30 14:15] VITALS: BMI 42.2
[2016-06-30 14:23] LABS: Glucose,Whole Blood 198 mg/dL (75-99)
[2016-06-30 15:28] LABS: Glucose,Whole Blood 201 mg/dL (75-99)
[2016-06-30] MEDS ORDERED: LORazepam 1 MG TAB PO PRN (15:36)
[2016-06-30] MEDS: FUROSEMIDE 40 MG TAB PO SCH (15:44)
[2016-06-30 16:21] LABS: Glucose,Whole Blood 172 mg/dL (75-99)
[2016-06-30 18:12] LABS: Glucose,Whole Blood 172 mg/dL (75-99)
[2016-06-30 19:32] LABS: Anisocytosis Slight; CH 23.2; CHCM 30.6; HCT 27.2 % (34.0-46.0); HDW 3.54; HGB 8.2 gm/dL (11.4-16.0); Hypochromasia Marked; MCH 23.1 pg (25.0-35.0); MCHC 30.3 g/dL (31.0-37.0); MCV 76.2 fL (80.0-100.0); Mean Platelet Volume 8.8; Microcytosis Slight; Poikilocytosis Slight; RBC 3.57 m/uL (3.80-5.40); RDW 16.3 % (11.5-15.5)
[2016-06-30 19:56] LABS: Glucose,Whole Blood 234 mg/dL (75-99)
[2016-06-30] MEDS: ATORVASTATIN 80 MG TAB PO SCH (21:01)
[2016-06-30] MEDS: CLOPIDOGREL 75 MG TAB PO SCH (21:01)
[2016-06-30] MEDS: ACETAMINOPHEN TAB 500 MG TAB PO PRN (21:01)
[2016-06-30 22:17] LABS: Glucose,Whole Blood 108 mg/dL (75-99)
[2016-06-30] MEDS: NYSTATIN 100,000 UNIT/GM POWD 15 GM TOPICAL SCH (23:30)
[2016-06-30 23:31] LABS: Glucose,Whole Blood 120 mg/dL (75-99)
[2016-07-01 00:34] LABS: Glucose,Whole Blood 167 mg/dL (75-99)
[2016-07-01 03:44] LABS: Glucose,Whole Blood 176 mg/dL (75-99)
[2016-07-01] MEDS: ACETAMINOPHEN TAB 500 MG TAB PO PRN ×2 (05:29→12:16)
[2016-07-01 05:57] LABS: Glucose,Whole Blood 156 mg/dL (75-99)
[2016-07-01 06:27] LABS: Anisocytosis Slight; Basophils # (A) 0.1 k/uL (0-0.2); Basophils % (A) 1 %; CH 23.2; CHCM 30.2; Eosinophils # (A) 0.3 k/uL (0-0.7); Eosinophils % (A) 3 %; HCT 27.2 % (34.0-46.0); HDW 3.43; HGB 8.2 gm/dL (11.4-16.0); Hypochromasia Marked; Luc # (Auto) 0.13; Luc % (Auto) 2; Lymphocytes # (A) 1.7 k/uL (1.0-4.8); Lymphocytes % (A) 20 %; MCH 23.3 pg (25.0-35.0); MCHC 30.2 g/dL (31.0-37.0); MCV 77.1 fL (80.0-100.0); Mean Platelet Volume 7.7; Microcytosis Slight; Monocytes # (A) 0.4 k/uL (0-1.0); Monocytes % (A) 5 %; Neutrophils # (A) 5.8 k/uL (1.3-7.7); Neutrophils % (A) 70 %; Poikilocytosis Slight; RBC 3.53 m/uL (3.80-5.40); RDW 16.3 % (11.5-15.5); WBC 8.3 k/uL (3.8-10.6); WBC (Perox) 8.62
[2016-07-01 06:40] LABS: Potassium 3.8 mmol/L (3.5-5.1)
[2016-07-01] MEDS: CARVEDILOL 12.5 MG TAB PO SCH ×2 (06:42→21:30)
[2016-07-01] MEDS: PANTOPRAZOLE 40 MG TABLET PO SCH (06:42)
[2016-07-01] MEDS: INSULIN LISPRO (humaLOG) 300 UNIT/3 ML VIAL SQ SCH ×8 (07:40→23:42)
[2016-07-01 08:33] LABS: Glucose,Whole Blood 150 mg/dL (75-99)
[2016-07-01] MEDS: DICYCLOMINE 10 MG CAP PO SCH ×3 (09:50→21:32)
[2016-07-01 10:10] LABS: Glucose,Whole Blood 159 mg/dL (75-99)
--- NOTE | 2016-07-01 10:25 | PN ---
DATE OF SERVICE: 06/30/2016 This 66-year-old woman who was admitted with shortness of breath had possible CHF acute exacerbation. The patient is improving significantly. No chest pain or palpitation. No fever. A 2-D echo done today showed ejection fraction of 55% to 60%. Cardiology evaluation in progress at this time. The patient is also complaining of bleeding. PHYSICAL EXAM: Patient is alert and oriented x3. Pulse is 71, blood pressure 155/69, respirations 18, temperature 97.9, pulse ox 100% on room air. HEENT: Conjunctivae normal. NECK: No jugular venous distension. CARDIOVASCULAR: S1 and S2 muffled. RESPIRATORY: Breath sounds diminished in the bases. A few rhonchi, no crackles. Abdomen is soft, nontender. LEGS: No edema. NERVOUS SYSTEM: Nonfocal. Labs are WBC 10, hemoglobin is 8.2. Otherwise creatinine is 1.55. UA noted. ASSESSMENT: 1. Shortness of breath, possible congestive heart failure acute exacerbation with acute on chronic diastolic dysfunction, ejection fraction 55% to 60%, which is normal on the most recent 2-dimensional echocardiogram. 2. Continued vaginal bleeding with acute on chronic blood loss anemia CKD stage 3 3. Mild valvular abnormalities. 4. Diabetes mellitus type 2, uncontrolled. 5. Obesity, body mass index of 40.1. 6. History of recent anemia and genitourinary bleeding. 7. History of asthma, chronic obstructive pulmonary disease. 8. History of cerebrovascular accident, transient ischemic attack. 9. Diabetes mellitus type 2. 10. Fibromyalgia. 11. History of gastrointestinal bleed. 12. Hypertension. 13. Hyperlipidemia. 14. Myocardial infarction. 15. History of degenerative joint disease. 16. History of pneumonia. 17. History of femoral pseudoaneurysm. 18. Severe pulmonary hypertension history. 19. History of irritable bowel syndrome. 20. History of gastric ulcer. 21. History of stroke and cerebrovascular accident. 22. History of cholecystectomy. 23. History of coronary artery disease and stent. 24. History of claustrophobia. 25. History of anxiety and depression, not otherwise specified. 26. Remote history of nicotine dependence. 27. FULL CODE. RECOMMENDATIONS AND DISCUSSION: Continue with current medications. Continue with current monitoring. Continue with diuretics. Monitor creatinine closely. Otherwise, closely follow with Cardiology. Guarded prognosis because of multiple complex medical issues. Further recommendations to follow. MTDD
[2016-07-01] MEDS: NYSTATIN 100,000 UNIT/GM POWD 15 GM TOPICAL SCH ×2 (11:00→21:31)
[2016-07-01] MEDS: amLODIPine 5 MG TAB PO SCH (11:01)
[2016-07-01] MEDS: ASPIRIN 81 MG CHEW PO SCH (11:01)
[2016-07-01] MEDS: NITROGLYCERIN OINT 1 INCH/GM PACKET TOPICAL SCH (11:05)
[2016-07-01 12:00] LABS: Glucose,Whole Blood 189 mg/dL (75-99)
--- NOTE | 2016-07-01 12:25 | CDI ---
In responding to this query, please exercise your independent professional judgment. The [facility] Coding Staff and Clinical Documentation Specialists appreciate your assistance in clarifying documentation, maintaining compliance with coding guidelines, accurately documenting patients condition and capturing severity of illness. The fact that a question is asked does not imply that any particular answer is desired or expected. Communication forms are a method of clarifying documentation and are not made part of the Legal Health Record. Thank you in advance for your clarification. Last Revision, April 2015 Reynaldo Salas [address] [facility] [place] [address] Documentation Clarification Form Date: 07/01/2016 12:12:00 PM From: Barb Wilcox Admit Date: 06/29/2016 10:17:00 AM Patient Name: Rossi Singh Visit Number: [id number] Dr. Joy Ferrer Patient history/risk factors: Recent Anemia Uterine malignancy Complaining of continued vaginal bleeding Clinical Indicators: Hemoglobin: 9.8 on 06/29,8.2 on 06/30 Hematocrit: 30.9 on 06/29, 27.2 on 06/30 Treatment: IV fluid bolus given on 06/29 Lab monitoring In order to capture the severity of condition, please clarify if this signifies one or more diagnoses listed below: Acute blood loss anemia Acute on chronic blood loss anemia Chronic blood loss anemia Iron deficiency anemia Anemia due to malignancy Unable to determine Other, please specify Please document in your progress notes and discharge summary in order to capture severity of illness and risk of mortality. Include clinical findings that support your diagnosis. FYI: Press F11 to launch patient chart. Place X here if this finding has no clinical significance, is not applicable or if you are not able to provide any additional documentation. [place]
--- NOTE | 2016-07-01 12:34 | CDI ---
In responding to this query, please exercise your independent professional judgment. The [facility] Coding Staff and Clinical Documentation Specialists appreciate your assistance in clarifying documentation, maintaining compliance with coding guidelines, accurately documenting patients condition and capturing severity of illness. The fact that a question is asked does not imply that any particular answer is desired or expected. Communication forms are a method of clarifying documentation and are not made part of the Legal Health Record. Thank you in advance for your clarification. Last Revision, April 2015 Reynaldo Salas [address] [facility] [place] [address] Documentation Clarification Form Date: 07/01/2016 12:26:00 PM From: Barb Patsreedhar Admit Date: 06/29/2016 10:17:00 AM Patient Name: Rossi Singh Visit Number: [id number] Dr. Joy Ferrer Patient presents with a BUN/CR/GFR of: 32/1.21/45 On 06/30 BUN/CR/GFR was 49/1.55/34 On 07/01 BUN/CR/GFR was 59/1.70/30 History/Risk Factors: Admitted with possible acute CHF exacerbation Receiving IV Lasix Uncontrolled DM type 2 Hypertension Recent Anemia Vaginal bleeding Clinical Indicators: see labs as above Treatment: Consults: Cardiology, Gynecology IV fluid bolus given on 06/29 In order to capture the severity of condition, please clarify if the condition signifies: Acute renal failure Acute on chronic renal failure Chronic kidney disease (CKD) and please stage Stage 3 GFR 30-59 Other Stage (please specify) Unable to determine Other, specify Please document in your progress notes and discharge summary in order to capture severity of illness and risk of mortality. Include clinical findings that support your diagnosis. FYI: Press F11 to launch patient chart. Place X here if this finding has no clinical significance, is not applicable or if you are not able to provide any additional documentation. [place]
--- NOTE | 2016-07-01 13:41 | P.OBCN ---
History of Present Illness Consult date: 07/01/16 Chief complaint: post menopausal bleeding History of present illness: Varsha a 66-year-old female who has had post menopausal bleeding now for several months. I did see her approximately 10 days ago at that time she was not having much bleeding or going to see her outpatient to schedule a D&C. However since that time she has been readmitted for vaginal bleeding and her hemoglobin is again dropped we'll plan to do a D&C hysteroscopy tonight. Risks/benefits/ alternatives were reviewed with the patient and her family. Reviewing her ultrasound she did have a 1.6 cm thickened endometrium near the lower uterine segment unclear if this is a polyp which could be causing bleeding or if she has something cancerous or precancerous present. This will need to be defined by tissue sampling which again will be obtained tonight. We will plan to repeat the Pap smear as that showed ASCUS but it was a limited sample due to positioning of the patient. All the questions are answered for her at this time we'll plan to do a D&C this evening. No other changes to her history and physical from her previous visit Past Medical History Past Medical History: Asthma, Cancer, Heart Failure, COPD, CVA/TIA, Diabetes Mellitus, Eye Disorder, Fibromyalgia, GI Bleed, Hyperlipidemia, Hypertension, Myocardial Infarction ([place]), Osteoarthritis (OA), Pneumonia Additional Past Medical History / Comment(s): Pt recently admitted on 06/20/16 with acute blood loss anemia, possible uterine lesion/cancer (pt has hx of uterine cancer tx with radiation), cystitis and vaginal bleeding. 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 Last Myocardial Infarction Date:: 06/12/15 History of Any Multi-Drug Resistant Organisms: None Reported Past Surgical History: Cholecystectomy, Heart Catheterization, Heart Catheterization With Stent Additional Past Surgical History / Comment(s): 06/12/15 Cardiac cath, 06/15/15 PTCA with stent mid L main, D&C X2, YRS AGO HAD A DEVICE IN FOR RADIATION TX FOR UTERINE CA THAT WAS SINCE REMOVED.EGD/COLONOSCOPY.02/18/16 heart cath 3 stents to rca Past Anesthesia/Blood Transfusion Reactions: Motion Sickness Additional Past Anesthesia/Blood Transfusion Reaction / Comm: CLAUSTROPHOBIA. Pt has had blood transfusion in past-no reaction to blood Date of Last Stent Placement:: 02/18/16 Past Psychological History: Anxiety, Depression Additional Psychological History / Comment(s): Pt resides with her spouse. She is basically wheel chair bound most of the time for the past several yrs. She at times ambulates with assistance or pushes her wheelchair. She feeds herself. She has a supportive family. She has a sister that helps with her bathing and her олег and spouse will help with her medication. 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 Mother Family Medical History: CVA/TIA Additional Family Medical History / Comment(s): HEART PROBLEMS, STARTED DRINKING AFTER OF HER , she of a ruptured liver at age 58 yrs. Medications and Allergies Home Medications Medication Instructions Recorded Confirmed Type Clopidogrel [Plavix] 75 mg PO HS 06/12/15 06/29/16 History Insulin Aspart [NovoLOG] 22 unit SQ AC-TID 12/10/15 06/29/16 History Insulin Glargine [Lantus] 60 unit SQ HS 01/15/16 06/29/16 History Diphenox-Atrop 2.5-0.025 mg 2 tab PO QID PRN 01/27/16 06/29/16 History [Lomotil] Albuterol Sulfate [Proventil Hfa] 1 - 2 puff INHALATION RT-Q6H PRN 02/15/1610/10 History Insulin Glargine [Lantus] 10 unit SQ AC-BRKFST 02/15/16 06/29/16 History amLODIPine [Norvasc] 5 mg PO DAILY 02/18/16 06/29/16 History Carvedilol [Coreg] 12.5 mg PO BID 03/23/16 06/29/16 History Dicyclomine [Bentyl] 10 mg PO TID 06/16/16 06/29/16 History Allergies Allergy/AdvReac Type Severity Reaction Status Date / Time hydralazine Allergy Mild Anaphylaxis Verified 06/29/16 09:51 codeine Allergy Nausea/ Verified 06/29/16 09:51 hard to wake up hydrocodone Allergy Unknown Verified 06/29/16 09:51 lisinopril Allergy Rapid Verified 06/29/16 09:51 Heart Rate Exam Osteopathic Statement: *. No significant issues noted on an osteopathic structural exam other than those noted in the History and Physical/Consult. - Vital Signs Vital signs: Vital Signs Temp Pulse Resp BP Pulse Ox 07/01/16 12:00 65 18 150/66 96 07/01/16 08:00 98.1 F 66 18 164/68 90 L 07/01/16 04:00 70 16 153/67 96 07/01/16 00:00 98.1 F 61 16 123/44 95 06/30/16 20:00 97.8 F 71 18 155/67 100 06/30/16 16:00 69 18 138/53 97 Intake and Output 06/30/16 07/01/16 07/01/16 22:59 06:59 14:59 Intake Total 253.129 217.553 13.128 Output Total 800 Balance -546.871 217.553 13.128 Intake: IV 200 .9 200 Intake, IV Titration 33.129 17.553 13.128 Amount Insulin Regular 100 unit 33.129 17.553 13.128 In Sodium Chloride 0.9% 100 ml @ Titrate IV .Q0M [facility] Rx#:[id number] Oral 220 Output: Urine 800 Other: Voiding Method Bedside Commode Bedside Commode # Voids 1 1 Weight 101.1 kg Results Result Diagrams: 07/01/16 05:34 07/01/16 05:34 Abnormal Lab Results - Last 24 Hours (Table) 06/30/16 06/30/16 06/30/16 Range/Units 14:20 15:26 16:19 RBC (3.80-5.40) m/uL Hgb (11.4-16.0) gm/dL Hct (34.0-46.0) % MCV (80.0-100.0) fL MCH (25.0-35.0) pg MCHC (31.0-37.0) g/dL RDW (11.5-15.5) % BUN (7-17) mg/dL Creatinine (0.52-1.04) mg/dL Glucose (74-99) mg/dL POC Glucose (mg/dL) 198 H 201 H 172 H (75-99) mg/dL 06/30/16 06/30/16 06/30/16 Range/Units 18:10 19:22 19:55 RBC 3.57 L (3.80-5.40) m/uL Hgb 8.2 L (11.4-16.0) gm/dL Hct 27.2 L (34.0-46.0) % MCV 76.2 L (80.0-100.0) fL MCH 23.1 L (25.0-35.0) pg MCHC 30.3 L (31.0-37.0) g/dL RDW 16.3 H (11.5-15.5) % BUN (7-17) mg/dL Creatinine (0.52-1.04) mg/dL Glucose (74-99) mg/dL POC Glucose (mg/dL) 172 H 234 H (75-99) mg/dL 06/30/16 06/30/16 07/01/16 Range/Units 22:16 23:29 00:33 RBC (3.80-5.40) m/uL Hgb (11.4-16.0) gm/dL Hct (34.0-46.0) % MCV (80.0-100.0) fL MCH (25.0-35.0) pg MCHC (31.0-37.0) g/dL RDW (11.5-15.5) % BUN (7-17) mg/dL Creatinine (0.52-1.04) mg/dL Glucose (74-99) mg/dL POC Glucose (mg/dL) 108 H 120 H 167 H (75-99) mg/dL 0107/01/16 07/01/16 Range/Units 03:40 05:34 05:34 RBC 3.53 L (3.80-5.40) m/uL Hgb 8.2 L (11.4-16.0) gm/dL Hct 27.2 L (34.0-46.0) % MCV 77.1 L (80.0-100.0) fL MCH 23.3 L (25.0-35.0) pg MCHC 30.2 L (31.0-37.0) g/dL RDW 16.3 H (11.5-15.5) % BUN 59 H (7-17) mg/dL Creatinine 1.70 H (0.52-1.04) mg/dL Glucose 156 H (74-99) mg/dL POC Glucose (mg/dL) 176 H (75-99) mg/dL 07/01/16 07/01/16 07/01/16 Range/Units 05:55 08:30 10:07 RBC (3.80-5.40) m/uL Hgb (11.4-16.0) gm/dL Hct (34.0-46.0) % MCV (80.0-100.0) fL MCH (25.0-35.0) pg MCHC (31.0-37.0) g/dL RDW (11.5-15.5) % BUN (7-17) mg/dL Creatinine (0.52-1.04) mg/dL Glucose (74-99) mg/dL POC Glucose (mg/dL) 156 H 150 H 159 H (75-99) mg/dL 07/01/16 Range/Units 11:56 RBC (3.80-5.40) m/uL Hgb (11.4-16.0) gm/dL Hct (34.0-46.0) % MCV (80.0-100.0) fL MCH (25.0-35.0) pg MCHC (31.0-37.0) g/dL RDW (11.5-15.5) % BUN (7-17) mg/dL Creatinine (0.52-1.04) mg/dL Glucose (74-99) mg/dL POC Glucose (mg/dL) 189 H (75-99) mg/dL
[2016-07-01 13:59] LABS: Glucose,Whole Blood 179 mg/dL (75-99)
--- NOTE | 2016-07-01 14:12 | P.PN ---
Subjective Principal diagnosis: Shortness of breath This is a pleasant 66-year-old female who follows regularly with Dr. Ricci in the office area she has a known history of coronary artery disease with prior stent placement of the mid left main in 2014, most recently patient underwent successful stenting of the mid ,proximal and distal RCA in January 2016 , history of anemia, diabetes, hypertension, hyperlipidemia, who was recently in the hospital last month with acute blood loss anemia and GI bleed, she underwent an EGD and colonoscopy, EGD revealed gastritis and duodenitis, colonoscopy revealed sigmoid diverticulosis without active bleeding, external hemorrhoids with acute inflammation, internal hemorrhoids, and evidence of vaginal bleeding. Patient has also been evaluated as an outpatient for significant vaginal bleeding and has a history of cancer for which she was recommended a hysterectomy several years ago. Patient presents to the hospital with sudden onset of shortness of breath, she states that she got up in the morning, tried to get up to go to the bathroom and became extremely short of breath. If she would sit and rest her breathing was stable, however the moment she exerted herself she again became extremely short of breath. She denies any chest pain. Patient also states that she had had a significant amount of vaginal bleeding at home the night prior to coming in. Hemoglobin on admission was 9.8, 8.2 this morning. Patient was initially diuresed with IV Lasix, the IV Lasix was discontinued and patient was placed on oral diuretics. Creatinine today is 1.7. She is scheduled for a D&C today. Objective - Vital Signs Vital signs: Vital Signs Temp 98.1 F 07/01/16 08:00 Pulse 65 07/01/16 12:00 Resp 18 07/01/16 12:00 BP 150/66 07/01/16 12:00 Pulse Ox 96 07/01/16 12:00 Intake & Output 06/30/16 07/01/16 07/01/16 18:59 06:59 18:59 Intake Total 955.487 236.861 13.128 Output Total 800 Balance 155.487 236.861 13.128 Weight 101.3 kg 101.1 kg Intake: IV 450 200 .9 400 200 Insulin Regular 100 unit 50 In Sodium Chloride 0.9% 100 ml @ Titrate IV .Q0M [facility] Rx#:[id number] Intake, IV Titration 45.487 36.861 13.128 Amount Insulin Regular 100 unit 45.487 36.861 13.128 In Sodium Chloride 0.9% 100 ml @ Titrate IV .Q0M [facility] Rx#:[id number] Oral 460 Output: Urine 800 Other: Voiding Method Bedside Commode # Voids 1 - Exam PHYSICAL EXAMINATION: HEENT: Head is atraumatic, normocephalic. Pupils equal, round. Neck is supple. There is no elevated jugular venous pressure. HEART EXAMINATION: Heart S1, S2 normal. No murmur or gallop heard. CHEST EXAMINATION: Lungs are clear to auscultation and precussion. No chest wall tenderness is noted on palpation or with deep breathing. ABDOMEN: Soft, nontender. Bowel sounds are heard. No organomegaly noted. EXTREMITIES: 2+ peripheral pulses with no evidence of peripheral edema and no calf tenderness noted. NEUROLOGIC patient is awake, alert and oriented -3. - Labs CBC & Chem 7: 07/01/16 05:34 07/01/16 05:34 Labs: Abnormal Lab Results - Last 24 Hours (Table) 06/30/16 06/30/16 06/30/16 Range/Units 14:20 15:26 16:19 RBC (3.80-5.40) m/uL Hgb (11.4-16.0) gm/dL Hct (34.0-46.0) % MCV (80.0-100.0) fL MCH (25.0-35.0) pg MCHC (31.0-37.0) g/dL RDW (11.5-15.5) % BUN (7-17) mg/dL Creatinine (0.52-1.04) mg/dL Glucose (74-99) mg/dL POC Glucose (mg/dL) 198 H 201 H 172 H (75-99) mg/dL 06/30/16 06/30/16 06/30/16 Range/Units 18:10 19:22 19:55 RBC 3.57 L (3.80-5.40) m/uL Hgb 8.2 L (11.4-16.0) gm/dL Hct 27.2 L (34.0-46.0) % MCV 76.2 L (80.0-100.0) fL MCH 23.1 L (25.0-35.0) pg MCHC 30.3 L (31.0-37.0) g/dL RDW 16.3 H (11.5-15.5) % BUN (7-17) mg/dL Creatinine (0.52-1.04) mg/dL Glucose (74-99) mg/dL POC Glucose (mg/dL) 172 H 234 H (75-99) mg/dL 06/30/16 06/30/16 07/01/16 Range/Units 22:16 23:29 00:33 RBC (3.80-5.40) m/uL Hgb (11.4-16.0) gm/dL Hct (34.0-46.0) % MCV (80.0-100.0) fL MCH (25.0-35.0) pg MCHC (31.0-37.0) g/dL RDW (11.5-15.5) % BUN (7-17) mg/dL Creatinine (0.52-1.04) mg/dL Glucose (74-99) mg/dL POC Glucose (mg/dL) 108 H 120 H 167 H (75-99) mg/dL 07/01/16 07/01/16 07/01/16 Range/Units 03:40 05:34 05:34 RBC 3.53 L (3.80-5.40) m/uL Hgb 8.2 L (11.4-16.0) gm/dL Hct 27.2 L (34.0-46.0) % MCV 77.1 L (80.0-100.0) fL MCH 23.3 L (25.0-35.0) pg MCHC 30.2 L (31.0-37.0) g/dL RDW 16.3 H (11.5-15.5) % BUN 59 H (7-17) mg/dL Creatinine 1.70 H (0.52-1.04) mg/dL Glucose 156 H (74-99) mg/dL POC Glucose (mg/dL) 176 H (75-99) mg/dL 07/01/16 07/01/16 07/01/16 Range/Units 05:55 08:30 10:07 RBC (3.80-5.40) m/uL Hgb (11.4-16.0) gm/dL Hct (34.0-46.0) % MCV (80.0-100.0) fL MCH (25.0-35.0) pg MCHC (31.0-37.0) g/dL RDW (11.5-15.5) % BUN (7-17) mg/dL Creatinine (0.52-1.04) mg/dL Glucose (74-99) mg/dL POC Glucose (mg/dL) 156 H 150 H 159 H (75-99) mg/dL 07/01/16 07/01/16 Range/Units 11:56 13:57 RBC (3.80-5.40) m/uL Hgb (11.4-16.0) gm/dL Hct (34.0-46.0) % MCV (80.0-100.0) fL MCH (25.0-35.0) pg MCHC (31.0-37.0) g/dL RDW (11.5-15.5) % BUN (7-17) mg/dL Creatinine (0.52-1.04) mg/dL Glucose (74-99) mg/dL POC Glucose (mg/dL) 189 H 179 H (75-99) mg/dL Assessment and Plan Plan: Assessment and plan #1 symptoms of sudden onset of shortness of breath, likely secondary to anemia and mild congestive cardiac failure, systolic in nature. Most recent echocardiogram with Doppler study was performed in January of last year which revealed an ejection fraction of 40-45%. I released on Lasix, creatinine 1.7 today. #2 anemia, hemoglobin 9.8 on admission, 8.2 this morning. #3 recent vaginal bleeding #4 recent admission with acute blood loss anemia, colonoscopy and EGD performed with major findings. #5 history of coronary artery disease with prior stenting of the left main in 2014, RCA stent performed in January of last year, patient is on aspirin and Plavix. 6 hypertension #7 diabetes #8 hyperlipidemia #9 history of uterine CA Plan From cardiology's perspective, we will hold the patient's Lasix for one day today. Continue her other medications including aspirin and Plavix. She is scheduled for a D&C today. Further recommendations to follow. DNP note has been reviewed, I agree with a documented findings and plan of care. Patient was seen and examined.
[2016-07-01 16:10] LABS: Glucose,Whole Blood 120 mg/dL (75-99)
[2016-07-01] MEDS ORDERED: HYDROmorphone 1 MG/ML 1 ML SYRINGE IVP PRN (16:47)
[2016-07-01] MEDS ORDERED: LACTATED RINGERS 1,000 ML IV SCH (17:00)
[2016-07-01 17:20] LABS: Glucose,Whole Blood 141 mg/dL (75-99)
[2016-07-01] MEDS ORDERED: IV FLUID CONTINUATION 1,000 ML IV ONE (17:54)
[2016-07-01] MEDS ORDERED: MIDAZOLAM 2 MG/2 ML VIAL IVP ONE (18:00)
[2016-07-01 18:10] LABS: Glucose,Whole Blood 132 mg/dL (75-99)
--- NOTE | 2016-07-01 18:13 | PN ---
DATE OF SERVICE: 07/01/2016 This 66-year-old woman was admitted with shortness of breath and also has CHF acute exacerbation. Patient also had significant bleeding. The patient was evaluated by Dr. Barron from [facility] point of view and planned to do a D&C today. Ultrasound showed 1.6-cm thickened endometrium in the lower uterine segment, possibly uterine polyp. No chest pain or palpitations. No fever. On exam, alert and oriented x3. Pulse is 66, blood pressure 150/64, respirations 18, temperature 98.1, pulse ox 96% on room air. HEENT: Conjunctivae normal. NECK: No jugular venous distension.' CARDIOVASCULAR: S1 and S2 muffled. RESPIRATORY: Breath sounds diminished in the bases. A few scattered rhonchi. No crackles. Abdomen is soft, nontender. No mass palpable. LEGS: No edema. No swelling. NERVOUS SYSTEM: Nonfocal. LABS: Hemoglobin 8.2. Otherwise, creatinine is 1.70. UA noted. ASSESSMENT: 1. Shortness of breath with possible congestive heart failure exacerbation with acute on chronic diastolic dysfunction, ejection fraction 55% to 60%, which is normal on the most recent 2-D echo. 2. Continued vaginal bleeding, possibly secondary to uterine polyp with acute on chronic blood loss anemia CKD stage 3. 3. Mild valvular abnormalities on the 2-D echo. 4. Diabetes mellitus type 2, uncontrolled. 5. Obesity with a body mass index of 40.1. 6. History of recent anemia and genitourinary bleeding. 7. History of asthma, chronic obstructive pulmonary disease. 8. History of cerebrovascular accident, transient ischemic attack. 9. Diabetes mellitus type 2. 10. Fibromyalgia. 11. History of gastrointestinal bleed. 12. History of hypertension. 13. Hyperlipidemia. 14. History of myocardial infarction. 15. History of degenerative joint disease. 16. History of pneumonia. 17. History of femoral pseudoaneurysm. 18. Severe pulmonary hypertension history. 19. History of irritable bowel syndrome. 20. History of gastric ulcer. 21. History of stroke and cerebrovascular accident. 22. History of cholecystectomy. 23. History of coronary artery disease and stent. 24. History of claustrophobia. 25. Anxiety, depression, not otherwise specified. 26. Remote history of nicotine dependence. 27. FULL CODE. RECOMMENDATIONS AND DISCUSSION: Recommend to continue current medications, continue with symptomatic treatment. Otherwise, follow closely with [facility]. Possible D&C. Can repeat labs in the morning. Cut down the dose of Lasix, convert to p.o. Closely follow with Cardiology. Further recommendations to follow. MTDD
[2016-07-01] MEDS ORDERED: KETAMINE 10 MG/ML 20 ML VIAL ONE (18:37)
[2016-07-01] MEDS ORDERED: ONDANSETRON 4 MG/2 ML VIAL ONE (18:37)
[2016-07-01] MEDS ORDERED: DEXAMETHASONE SOD PHOS (MDV) 100 MG/10 ML VIAL ONE (18:37)
[2016-07-01] MEDS ORDERED: NEOSTIGMINE 1 MG/ML 10 ML VIAL ONE (18:37)
[2016-07-01] MEDS ORDERED: ROCURONIUM BROMIDE 10 MG/ML 10 ML VIAL IV ONE (18:37)
[2016-07-01] MEDS ORDERED: GLYCOPYRROLATE 0.2 MG/ML 2 ML VIAL ONE (18:37)
[2016-07-01] MEDS ORDERED: PROPOFOL 10 MG/ML 20 ML VIAL IV ONE (18:37)
[2016-07-01] MEDS ORDERED: MIDAZOLAM 2 MG/2 ML VIAL ONE (18:37)
[2016-07-01] MEDS ORDERED: fentaNYL (PF) 50 MCG/ML 2 ML AMP ONE (18:37)
[2016-07-01] MEDS ORDERED: LIDOCAINE 1% INJ 10MG/ML (20 ML MDV) ONE (18:37)
[2016-07-01] MEDS ORDERED: LABETALOL 5 MG/ML VIAL MDV ONE (18:37)
[2016-07-01] MEDS ORDERED: SUCCINYLCHOLINE CHLORIDE 100 MG/5 ML SYR IV ONE (18:37)
[2016-07-01] MEDS ORDERED: IV VANCOMYCIN PER PHARMACY 1 EACH MISC MISCELLANE PRN (18:53)
--- NOTE | 2016-07-01 19:23 | P.OP ---
Date of Procedure: 07/01/16 Preoperative Diagnosis: Postmenopausal bleeding Postoperative Diagnosis: Same Procedure(s) Performed: Dilation and curettage Anesthesia: TOMMY Surgeon: Jacob Barron Estimated Blood Loss (ml): 25 Pathology: other (Uterine curettings and clot) Condition: stable Disposition: floor Operative Findings: Technically this was an extremely difficult dilation and curettage. Patient is morbidly obese with multiple comorbidities. On initial exam what speculum was inserted multiple large clots were able to pulled out of the cervical canal. Extremely limited visualization was able to be done due to body habitus as well as the fact that the cervix had acyclic completely thinned out and was RE dilated approximately 1-2 cm. There was very little to grasped with the tenaculum therefore countertraction was next to impossible to do. Could not use hysteroscope with the amount of blood that was there. Tissue that was collected was sent to pathology on Tel. Clots that were extruded were also sent to pathology. Description of Procedure: Patient was taken to the operating suite where a general anesthetic was found be adequate. She was prepped and draped in the normal sterile fashion and placed in the dorsal lithotomy position. Attempts with a weighted speculum and other 90 angle speculum were made but we were unable to get back to the cervix as it was very high in the vagina and she is morbidly obese. Once we were unable to visualize anything with the speculum was we did obtain a bivalve speculum and I was able to visualize the cervix at this point. He was noted there were multiple blood clots coming from the cervical os. These were grasped with ring forceps and removed. Cervix as previously noted was dilated to 1-2 cm and basically completely effaced limiting our ability to grasped with a tenaculum. This in turn limited my ability to do countertraction with the curettings. We did do sharp curettings of both the endometrium and endocervical canal as best we could. Very limited tissue was recovered however. Minimal to no bleeding is noted the end of the procedure. I suspect that there is something going on even potentially higher up than what I was able to visualize. The blood clots are what I would expect causing the thickening of the endometrium as these clots were located in that area. She may ultimately need a more definitive surgical technique to correct her bleeding. However, I would not feel comfortable with her comorbidities taking her for a hysterectomy and would recommend she go to a tertiary care center with nightly oncology with her history to perform the procedure. Once all tissue was collected it was placed on Telfa and sent to pathology for evaluation. We'll need to wait tissue sample. However, again limited tissue was returned it is not that I don't think that there is something going on she was just very difficult to obtain any tissue during the procedure.
[2016-07-01 19:52] LABS: Glucose,Whole Blood 125 mg/dL (75-99)
[2016-07-01] MEDS: LACTATED RINGERS 1,000 ML IV ONE ×2 (19:56→20:24)
[2016-07-01] MEDS ORDERED: hydrALAZINE HCL 20 MG/ML 1 ML VIAL IVP ONE ×2 (20:00→20:10)
[2016-07-01] MEDS ORDERED: VANCOMYCIN 1,500 MG in SODIUM CHLORIDE 0.9% 250 ML IVPB SCH (20:00)
[2016-07-01] MEDS ORDERED: METOCLOPRAMIDE 5 MG/ML 2 ML VIAL IVP ONE (20:00)
[2016-07-01 21:19] LABS: Glucose,Whole Blood 230 mg/dL (75-99)
[2016-07-01] MEDS: CLOPIDOGREL 75 MG TAB PO SCH (21:31)
[2016-07-01] MEDS: ATORVASTATIN 80 MG TAB PO SCH (21:31)
[2016-07-01] MEDS ORDERED: ONDANSETRON 4 MG/2 ML VIAL IVP PRN (21:57)
[2016-07-01] MEDS: INSULIN GLARGINE 100 UNIT/ML 10 ML VIAL SQ SCH (23:39)
[2016-07-01 23:41] LABS: Glucose,Whole Blood 233 mg/dL (75-99)
[2016-07-02] MEDS: ACETAMINOPHEN TAB 500 MG TAB PO PRN ×2 (03:08→21:52)
[2016-07-02 05:59] LABS: Anisocytosis Slight; Basophils % (A) 0 %; CH 23.4; CHCM 30.5; Eosinophils % (A) 0 %; HCT 25.8 % (34.0-46.0); HDW 3.42; HGB 7.6 gm/dL (11.4-16.0); Hypochromasia Marked; Luc # (Auto) 0.03; Luc % (Auto) 0; Lymphocytes # (A) 0.4 k/uL (1.0-4.8); Lymphocytes % (A) 5 %; MCH 22.7 pg (25.0-35.0); MCHC 29.5 g/dL (31.0-37.0); Microcytosis Slight; Monocytes # (A) 0.2 k/uL (0-1.0); Monocytes % (A) 3 %; Neutrophils # (A) 7.1 k/uL (1.3-7.7); Neutrophils % (A) 92 %; Poikilocytosis Slight; RBC 3.35 m/uL (3.80-5.40); RDW 16.2 % (11.5-15.5); WBC 7.8 k/uL (3.8-10.6); WBC (Perox) 8.21
[2016-07-02 06:10] LABS: Calcium 8.5 mg/dL (8.4-10.2); Potassium 4.5 mmol/L (3.5-5.1)
[2016-07-02 06:21] LABS: Glucose,Whole Blood 252 mg/dL (75-99)
[2016-07-02] MEDS: INSULIN LISPRO (humaLOG) 300 UNIT/3 ML VIAL SQ SCH ×7 (07:03→21:53)
[2016-07-02] MEDS: CARVEDILOL 12.5 MG TAB PO SCH ×2 (07:03→17:26)
[2016-07-02] MEDS: PANTOPRAZOLE 40 MG TABLET PO SCH (07:03)
[2016-07-02] MEDS: INSULIN GLARGINE 100 UNIT/ML 10 ML VIAL SQ SCH ×2 (07:03→21:52)
--- NOTE | 2016-07-02 07:43 | P.CNOR ---
<Noris Brooks - Last Filed: 07/02/16 07:39> History of Present Illness - HPI Consult date: 07/02/16 Consult reason: low back pain History of present illness: This is a 66-year-old female with history of multiple medical problems who is admitted with shortness of breath with CHF acute exacerbation. She also had significant bleeding. She probably has been complaining of some lower back pain and subsequently we are consulted. The patient was seen and evaluated at bedside this morning. She complains of chronic back pain for which she states she's been in a wheelchair for nearly 10 years. She states that she is able to ambulate short distances but is typically in her wheelchair secondary to her pain. She states that her pain worsened when she lost her balance in the shower 2 nights ago. She states that she caught herself by grabbing the handle but felt immediate pain in her lower back. She has been taking Tylenol which is helped her pain. She would like x-rays for evaluation to make sure she does not have a fracture. She also complains of some chronic right knee pain for which she would like x-rays as well. She has history of stroke and chronic right-sided weakness. She states that she also had a recent CT. Review of Systems See HPI. The patient has had worsening shortness of breath and bleeding. She has history of stroke and right-sided weakness. She currently denies any worsening shortness of breath. No nausea or vomiting. She complains of chronic lower back pain. Past Medical History Past Medical History: Asthma, Cancer, Heart Failure, COPD, CVA/TIA, Diabetes Mellitus, Eye Disorder, Fibromyalgia, GI Bleed, Hyperlipidemia, Hypertension, Myocardial Infarction (CT), Osteoarthritis (OA), Pneumonia Additional Past Medical History / Comment(s): Pt recently admitted on 06/20/16 with acute blood loss anemia, possible uterine lesion/cancer (pt has hx of uterine cancer tx with radiation), cystitis and vaginal bleeding. 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 Last Myocardial Infarction Date:: 06/12/15 History of Any Multi-Drug Resistant Organisms: None Reported Past Surgical History: Cholecystectomy, Heart Catheterization, Heart Catheterization With Stent Additional Past Surgical History / Comment(s): 06/12/15 Cardiac cath, 06/15/15 PTCA with stent mid L main, D&C X2, YRS AGO HAD A DEVICE IN FOR RADIATION TX FOR UTERINE CA THAT WAS SINCE REMOVED.EGD/COLONOSCOPY.02/18/16 heart cath 3 stents to rca Past Anesthesia/Blood Transfusion Reactions: Motion Sickness Additional Past Anesthesia/Blood Transfusion Reaction / Comm: CLAUSTROPHOBIA. Pt has had blood transfusion in past-no reaction to blood Date of Last Stent Placement:: 02/18/16 Past Psychological History: Anxiety, Depression Additional Psychological History / Comment(s): Pt resides with her spouse. She is basically wheel chair bound most of the time for the past several yrs. She at times ambulates with assistance or pushes her wheelchair. She feeds herself. She has a supportive family. She has a sister that helps with her bathing and her олег and spouse will help with her medication. 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 Mother Family Medical History: CVA/TIA Additional Family Medical History / Comment(s): HEART PROBLEMS, STARTED DRINKING AFTER OF HER , she of a ruptured liver at age 59 yrs. Medications and Allergies Home Medications Medication Instructions Recorded Confirmed Type Clopidogrel [Plavix] 75 mg PO HS 06/12/15 06/29/16 History Insulin Aspart [NovoLOG] 22 unit SQ AC-TID 12/10/15 06/29/16 History Insulin Glargine [Lantus] 60 unit SQ HS 01/15/16 06/29/16 History Diphenox-Atrop 2.5-0.025 mg 2 tab PO QID PRN 01/27/16 06/29/16 History [Lomotil] Albuterol Sulfate [Proventil Hfa] 1 - 2 puff INHALATION RT-Q6H PRN 02/15/1610/10 History Insulin Glargine [Lantus] 10 unit SQ AC-BRKFST 02/15/16 06/29/16 History amLODIPine [Norvasc] 5 mg PO DAILY 02/18/16 06/29/16 History Carvedilol [Coreg] 12.5 mg PO BID 03/23/16 06/29/16 History Dicyclomine [Bentyl] 10 mg PO TID 06/16/16 06/29/16 History Allergies Allergy/AdvReac Type Severity Reaction Status Date / Time hydralazine Allergy Mild Anaphylaxis Verified 06/29/16 09:51 codeine Allergy Nausea/ Verified 06/29/16 09:51 hard to wake up hydrocodone Allergy Unknown Verified 06/29/16 09:51 lisinopril Allergy Rapid Verified 06/29/16 09:51 Heart Rate Physical Examination The patient does not appear in acute distress. She is alert and answers questions appropriately. She seated in the bed. Head normal cephalic atraumatic. Neck is supple. She moves her upper extremities freely is not appear to have much difficulty or pain. Reason appears nonlabored Upon examination of her lower extremities is no obvious leg length discrepancy or malrotation. No hip irritability with internal/external rotation at the hip. She does have some chronic weakness in the right lower extremity in comparison to the left with manual muscle testing. She does have sustained wrist flexion, plantar flexion extensor hallux longus. Upon inspection of her lower back there is no obvious deformity or ecchymosis. She has pain to palpation about the midline of her lumbar spine and paraspinal musculature which appears to be worse on the left. She is of some spasm left side. Mild pain to palpation about her left buttocks as well. Sensation and circulatory status is intact. Results - Labs Labs: Abnormal Lab Results - Last 24 Hours (Table) 07/01/16 07/01/16 07/01/16 Range/Units 08:30 10:07 11:56 RBC (3.80-5.40) m/uL Hgb (11.4-16.0) gm/dL Hct (34.0-46.0) % MCV (80.0-100.0) fL MCH (25.0-35.0) pg MCHC (31.0-37.0) g/dL RDW (11.5-15.5) % Lymphocytes # (1.0-4.8) k/uL Chloride (98-107) mmol/L BUN (7-17) mg/dL Creatinine (0.52-1.04) mg/dL Glucose (74-99) mg/dL POC Glucose (mg/dL) 150 H 159 H 189 H (75-99) mg/dL 07/01/16 07/01/16 07/01/16 Range/Units 13:57 16:08 17:12 RBC (3.80-5.40) m/uL Hgb (11.4-16.0) gm/dL Hct (34.0-46.0) % MCV (80.0-100.0) fL MCH (25.0-35.0) pg MCHC (31.0-37.0) g/dL RDW (11.5-15.5) % Lymphocytes # (1.0-4.8) k/uL Chloride (98-107) mmol/L BUN (7-17) mg/dL Creatinine (0.52-1.04) mg/dL Glucose (74-99) mg/dL POC Glucose (mg/dL) 179 H 120 H 141 H (75-99) mg/dL 07/01/16 07/01/16 07/01/16 Range/Units 18:06 19:41 21:16 RBC (3.80-5.40) m/uL Hgb (11.4-16.0) gm/dL Hct (34.0-46.0) % MCV (80.0-100.0) fL MCH (25.0-35.0) pg MCHC (31.0-37.0) g/dL RDW (11.5-15.5) % Lymphocytes # (1.0-4.8) k/uL Chloride (98-107) mmol/L BUN (7-17) mg/dL Creatinine (0.52-1.04) mg/dL Glucose (74-99) mg/dL POC Glucose (mg/dL) 132 H 125 H 230 H (75-99) mg/dL 07/01/16 07/02/16 07/02/16 Range/Units 23:38 05:35 05:35 RBC 3.35 L (3.80-5.40) m/uL Hgb 7.6 L (11.4-16.0) gm/dL Hct 25.8 L (34.0-46.0) % MCV 77.0 L (80.0-100.0) fL MCH 22.7 L (25.0-35.0) pg MCHC 29.5 L (31.0-37.0) g/dL RDW 16.2 H (11.5-15.5) % Lymphocytes # 0.4 L (1.0-4.8) k/uL Chloride 108 H (98-107) mmol/L BUN 48 H (7-17) mg/dL Creatinine 1.30 H (0.52-1.04) mg/dL Glucose 265 H (74-99) mg/dL POC Glucose (mg/dL) 233 H (75-99) mg/dL 07/02/16 Range/Units 06:16 RBC (3.80-5.40) m/uL Hgb (11.4-16.0) gm/dL Hct (34.0-46.0) % MCV (80.0-100.0) fL MCH (25.0-35.0) pg MCHC (31.0-37.0) g/dL RDW (11.5-15.5) % Lymphocytes # (1.0-4.8) k/uL Chloride (98-107) mmol/L BUN (7-17) mg/dL Creatinine (0.52-1.04) mg/dL Glucose (74-99) mg/dL POC Glucose (mg/dL) 252 H (75-99) mg/dL H & H 06/30/16 06/30/16 07/01/16 Range/Units 05:45 19:22 05:34 Hgb 8.2 L D 8.2 L 8.2 L (11.4-16.0) gm/dL Hct 26.6 L 27.2 L 27.2 L (34.0-46.0) % 07/02/16 Range/Units 05:35 Hgb 7.6 L (11.4-16.0) gm/dL Hct 25.8 L (34.0-46.0) % Result Diagrams: 07/02/16 05:35 07/02/16 05:35 Assessment and Plan (1) Acute exacerbation of chronic low back pain Status: Acute (2) Right knee pain Status: Acute Plan: This is a pleasant 66-year-old female with history of acute on chronic lower back pain. I discussed the clinical signs with the patient. We'll obtain x- rays for further evaluation of her lumbar spine. The patient would like x-rays of her right knee as well. X-rays will be ordered and reviewed and further recommendations will be made after the images can be reviewed. Continue with pain control. <Elizabeth Forbes - Last Filed: 07/02/16 10:08> Physical Examination Osteopathic Statement: *. No significant issues noted on an osteopathic structural exam other than those noted in the History and Physical/Consult. Results - Labs Labs: Abnormal Lab Results - Last 24 Hours (Table) 07/01/16 07/01/16 07/01/16 Range/Units 10:07 11:56 13:57 RBC (3.80-5.40) m/uL Hgb (11.4-16.0) gm/dL Hct (34.0-46.0) % MCV (80.0-100.0) fL MCH (25.0-35.0) pg MCHC (31.0-37.0) g/dL RDW (11.5-15.5) % Lymphocytes # (1.0-4.8) k/uL Chloride (98-107) mmol/L BUN (7-17) mg/dL Creatinine (0.52-1.04) mg/dL Glucose (74-99) mg/dL POC Glucose (mg/dL) 159 H 189 H 179 H (75-99) mg/dL 07/01/16 07/01/16 07/01/16 Range/Units 16:08 17:12 18:06 RBC (3.80-5.40) m/uL Hgb (11.4-16.0) gm/dL Hct (34.0-46.0) % MCV (80.0-100.0) fL MCH (25.0-35.0) pg MCHC (31.0-37.0) g/dL RDW (11.5-15.5) % Lymphocytes # (1.0-4.8) k/uL Chloride (98-107) mmol/L BUN (7-17) mg/dL Creatinine (0.52-1.04) mg/dL Glucose (74-99) mg/dL POC Glucose (mg/dL) 120 H 141 H 132 H (75-99) mg/dL 07/01/16 07/01/16 07/01/16 Range/Units 19:41 21:16 23:38 RBC (3.80-5.40) m/uL Hgb (11.4-16.0) gm/dL Hct (34.0-46.0) % MCV (80.0-100.0) fL MCH (25.0-35.0) pg MCHC (31.0-37.0) g/dL RDW (11.5-15.5) % Lymphocytes # (1.0-4.8) k/uL Chloride (98-107) mmol/L BUN (7-17) mg/dL Creatinine (0.52-1.04) mg/dL Glucose (74-99) mg/dL POC Glucose (mg/dL) 125 H 230 H 233 H (75-99) mg/dL 07/02/16 07/02/16 07/02/16 Range/Units 05:35 05:35 06:16 RBC 3.35 L (3.80-5.40) m/uL Hgb 7.6 L (11.4-16.0) gm/dL Hct 25.8 L (34.0-46.0) % MCV 77.0 L (80.0-100.0) fL MCH 22.7 L (25.0-35.0) pg MCHC 29.5 L (31.0-37.0) g/dL RDW 16.2 H (11.5-15.5) % Lymphocytes # 0.4 L (1.0-4.8) k/uL Chloride 108 H (98-107) mmol/L BUN 48 H (7-17) mg/dL Creatinine 1.30 H (0.52-1.04) mg/dL Glucose 265 H (74-99) mg/dL POC Glucose (mg/dL) 252 H (75-99) mg/dL H & H 06/30/16 06/30/16 07/01/16 Range/Units 05:45 19:22 05:34 Hgb 8.2 L D 8.2 L 8.2 L (11.4-16.0) gm/dL Hct 26.6 L 27.2 L 27.2 L (34.0-46.0) % 07/02/16 Range/Units 05:35 Hgb 7.6 L (11.4-16.0) gm/dL Hct 25.8 L (34.0-46.0) % Result Diagrams: 07/02/16 05:35 07/02/16 05:35 Assessment and Plan Plan: The patient is seen and examined today at bedside. I reviewed the dictation above and discussed the history with the patient and performed the physical exam itself. I reviewed the x-rays of the lumbar spine and knee as well. X-rays lumbar spine show no evidence of acute fracture. The disc height over adequately maintained there is no evidence of instability or listhesis. There is some facet arthrosis throughout her lumbar spine as expected but the disc heights are adequately preserved as is the vertebral body heights. X-rays of the knee show no evidence of fracture. There is some mild medial joint space narrowing but no significant evidence of fracture no evidence of instability Lumbar strain status post fall Knee strain status post fall History of CVA with right-sided weakness The patient had a near fall incident and has some strain at her low back and knee. She does not appear to have any fracture at her back or at her knee and does not have any evidence of instability. She is not having any new neurologic deficit but she does have chronic changes at her right side. I think it is okay for her to mobilize to her tolerance and she does not need any bracing or further imaging for her back or knee at this point. I think that this should resolve with expectant management and oral medications for pain control. She should try to mobilize further with physical therapy and can follow-up on an as-needed basis. I discussed this with her and her at bedside and answered her questions best my ability and they're agreeable.
[2016-07-02] MEDS: NYSTATIN 100,000 UNIT/GM POWD 15 GM TOPICAL SCH ×2 (09:24→21:54)
[2016-07-02] MEDS: amLODIPine 5 MG TAB PO SCH (09:24)
[2016-07-02] MEDS: ASPIRIN 81 MG CHEW PO SCH (09:24)
[2016-07-02] MEDS: DICYCLOMINE 10 MG CAP PO SCH ×3 (09:24→21:53)
--- NOTE | 2016-07-02 09:55 | XR ---
EXAMINATION TYPE: XR lumbosacral spine min 4V DATE OF EXAM: 07/02/2016 9:16 AM CLINICAL HISTORY: Low back pain TECHNIQUE: Frontal, lateral, and oblique images of the lumbar spine are obtained. COMPARISON: CT abdomen and pelvis from June 16, 2016 FINDINGS: There are 5 lumbar type vertebral bodies identified. The lumbar spine shows satisfactory alignment without evidence of acute fracture or dislocation. Vertebral body heights and disk space he ights are within normal limits. There is mild multilevel anterior and lateral spurring. There is mult ilevel uncovertebral facet degenerative changes most pronounced in lower lumbar levels. The oblique images appear within normal limits. One is slightly suboptimal in technique. Vascular calcification o f overlying abdominal aorta is noted. IMPRESSION: No acute fracture or dislocation is seen in the lumbar spine. Multilevel degenerative ch anges are redemonstrated.
--- NOTE | 2016-07-02 11:16 | P.PN ---
Subjective Principal diagnosis: Shortness of breath This is a pleasant 66-year-old female who follows regularly with Dr. Ricci in the office area she has a known history of coronary artery disease with prior stent placement of the mid left main in 2014, most recently patient underwent successful stenting of the mid ,proximal and distal RCA in January 2016 , history of anemia, diabetes, hypertension, hyperlipidemia, who was recently in the hospital last month with acute blood loss anemia and GI bleed, she underwent an EGD and colonoscopy, EGD revealed gastritis and duodenitis, colonoscopy revealed sigmoid diverticulosis without active bleeding, external hemorrhoids with acute inflammation, internal hemorrhoids, and evidence of vaginal bleeding. Patient has also been evaluated as an outpatient for significant vaginal bleeding and has a history of cancer for which she was recommended a hysterectomy several years ago. Patient presents to the hospital with sudden onset of shortness of breath, she states that she got up in the morning, tried to get up to go to the bathroom and became extremely short of breath. If she would sit and rest her breathing was stable, however the moment she exerted herself she again became extremely short of breath. She denies any chest pain. Patient also states that she had had a significant amount of vaginal bleeding at home the night prior to coming in. Hemoglobin on admission was 9.8, 7.6 this morning. Patient was initially diuresed with IV Lasix, the IV Lasix was discontinued and patient was placed on oral diuretics. Creatinine today is 1.3. underwent a D&C yesterday. Feeling much better overall today. Denies any chest pain, no further bleeding noted. Objective - Vital Signs Vital signs: Vital Signs Temp 97.1 F L 07/02/16 08:00 Pulse 70 07/02/16 08:00 Resp 18 07/02/16 08:00 BP 145/80 07/02/16 08:00 Pulse Ox 95 07/02/16 08:00 Intake & Output 07/01/16 07/02/16 07/02/16 18:59 06:59 18:59 Intake Total 5219.923 8258.116 180 Output Total 575 400 Balance 1109.530 504.116 -220 Weight 97 kg Intake: IV 1080 1075 .9 160 700 Insulin Regular 100 unit 20 In Sodium Chloride 0.9% 100 ml @ Titrate IV .Q0M [facility] Rx#:[id number] Intake, IV Titration 29.530 4.116 Amount Insulin Regular 100 unit 29.530 4.116 In Sodium Chloride 0.9% 100 ml @ Titrate IV .Q0M [facility] Rx#:[id number] Oral 0 180 Output: Urine 550 400 Estimated Blood Loss 25 Other: Voiding Method Bedside Commode Bedside Commode # Voids 1 - Exam PHYSICAL EXAMINATION: HEENT: Head is atraumatic, normocephalic. Pupils equal, round. Neck is supple. There is no elevated jugular venous pressure. HEART EXAMINATION: Heart S1, S2 normal. No murmur or gallop heard. CHEST EXAMINATION: Lungs are clear to auscultation and precussion. No chest wall tenderness is noted on palpation or with deep breathing. ABDOMEN: Soft, nontender. Bowel sounds are heard. No organomegaly noted. EXTREMITIES: 2+ peripheral pulses with no evidence of peripheral edema and no calf tenderness noted. NEUROLOGIC patient is awake, alert and oriented -3. - Labs CBC & Chem 7: 07/02/16 05:35 07/02/16 05:35 Labs: Abnormal Lab Results - Last 24 Hours (Table) 07/01/16 07/01/16 07/01/16 Range/Units 11:56 13:57 16:08 RBC (3.80-5.40) m/uL Hgb (11.4-16.0) gm/dL Hct (34.0-46.0) % MCV (80.0-100.0) fL MCH (25.0-35.0) pg MCHC (31.0-37.0) g/dL RDW (11.5-15.5) % Lymphocytes # (1.0-4.8) k/uL Chloride (98-107) mmol/L BUN (7-17) mg/dL Creatinine (0.52-1.04) mg/dL Glucose (74-99) mg/dL POC Glucose (mg/dL) 189 H 179 H 120 H (75-99) mg/dL 07/01/16 07/01/16 07/01/16 Range/Units 17:12 18:06 19:41 RBC (3.80-5.40) m/uL Hgb (11.4-16.0) gm/dL Hct (34.0-46.0) % MCV (80.0-100.0) fL MCH (25.0-35.0) pg MCHC (31.0-37.0) g/dL RDW (11.5-15.5) % Lymphocytes # (1.0-4.8) k/uL Chloride (98-107) mmol/L BUN (7-17) mg/dL Creatinine (0.52-1.04) mg/dL Glucose (74-99) mg/dL POC Glucose (mg/dL) 141 H 132 H 125 H (75-99) mg/dL 07/01/16 07/01/16 07/02/16 Range/Units 21:16 23:38 05:35 RBC 3.35 L (3.80-5.40) m/uL Hgb 7.6 L (11.4-16.0) gm/dL Hct 25.8 L (34.0-46.0) % MCV 77.0 L (80.0-100.0) fL MCH 22.7 L (25.0-35.0) pg MCHC 29.5 L (31.0-37.0) g/dL RDW 16.2 H (11.5-15.5) % Lymphocytes # 0.4 L (1.0-4.8) k/uL Chloride (98-107) mmol/L BUN (7-17) mg/dL Creatinine (0.52-1.04) mg/dL Glucose (74-99) mg/dL POC Glucose (mg/dL) 230 H 233 H (75-99) mg/dL 07/02/16 07/02/16 Range/Units 05:35 06:16 RBC (3.80-5.40) m/uL Hgb (11.4-16.0) gm/dL Hct (34.0-46.0) % MCV (80.0-100.0) fL MCH (25.0-35.0) pg MCHC (31.0-37.0) g/dL RDW (11.5-15.5) % Lymphocytes # (1.0-4.8) k/uL Chloride 108 H (98-107) mmol/L BUN 48 H (7-17) mg/dL Creatinine 1.30 H (0.52-1.04) mg/dL Glucose 265 H (74-99) mg/dL POC Glucose (mg/dL) 252 H (75-99) mg/dL Assessment and Plan Plan: Assessment and plan #1 symptoms of sudden onset of shortness of breath, likely secondary to anemia and mild congestive cardiac failure, systolic in nature. Most recent echocardiogram with Doppler study was performed in January of last year which revealed an ejection fraction of 40-45%. Diuresed on Lasix, creatinine 1.3 today. #2 anemia, hemoglobin 9.8 on admission, 7.6 this morning. #3 recent vaginal bleeding, status post D&C #4 recent admission with acute blood loss anemia, colonoscopy and EGD performed with major findings. #5 history of coronary artery disease with prior stenting of the left main in 2014, RCA stent performed in January of last year, patient is on aspirin and Plavix. 6 hypertension #7 diabetes #8 hyperlipidemia #9 history of uterine CA Plan From cardiology's perspective, Continue her other medications including aspirin and Plavix. Blood pressure is 160s to 170 systolic, we will increase her Norvasc to 10 mg daily. Further recommendations to follow. DNP note has been reviewed, I agree with a documented findings and plan of care. Patient was seen and examined.
[2016-07-02 11:49] LABS: Glucose,Whole Blood 251 mg/dL (75-99)
[2016-07-02 16:47] LABS: Glucose,Whole Blood 225 mg/dL (75-99)
[2016-07-02 20:25] LABS: Glucose,Whole Blood 183 mg/dL (75-99)
[2016-07-02] MEDS ORDERED: VANCOMYCIN 1,500 MG in SODIUM CHLORIDE 0.9% 250 ML IVPB SCH (21:00)
[2016-07-02] MEDS: ATORVASTATIN 80 MG TAB PO SCH (21:51)
[2016-07-02] MEDS: CLOPIDOGREL 75 MG TAB PO SCH (21:52)
[2016-07-03 05:59] LABS: Glucose,Whole Blood 169 mg/dL (75-99)
[2016-07-03 06:35] LABS: Anisocytosis Slight; Basophils % (A) 0 %; CH 22.8; CHCM 29.7; Eosinophils # (A) 0.2 k/uL (0-0.7); Eosinophils % (A) 3 %; HCT 26.8 % (34.0-46.0); HDW 3.46; HGB 8.2 gm/dL (11.4-16.0); Hypochromasia Marked; Luc # (Auto) 0.12; Luc % (Auto) 2; Lymphocytes # (A) 1.6 k/uL (1.0-4.8); Lymphocytes % (A) 20 %; MCH 23.5 pg (25.0-35.0); MCHC 30.5 g/dL (31.0-37.0); MCV 76.9 fL (80.0-100.0); Mean Platelet Volume 6.8; Microcytosis Slight; Monocytes # (A) 0.4 k/uL (0-1.0); Monocytes % (A) 5 %; Neutrophils # (A) 5.8 k/uL (1.3-7.7); Neutrophils % (A) 71 %; Poikilocytosis Slight; RBC 3.49 m/uL (3.80-5.40); RDW 16.3 % (11.5-15.5); WBC 8.1 k/uL (3.8-10.6); WBC (Perox) 8.76
[2016-07-03 06:42] LABS: Calcium 8.9 mg/dL (8.4-10.2); Potassium 4.2 mmol/L (3.5-5.1)
[2016-07-03] MEDS: CARVEDILOL 12.5 MG TAB PO SCH ×2 (07:07→17:58)
[2016-07-03] MEDS: PANTOPRAZOLE 40 MG TABLET PO SCH (07:07)
[2016-07-03] MEDS: INSULIN GLARGINE 100 UNIT/ML 10 ML VIAL SQ SCH ×2 (07:07→21:09)
[2016-07-03] MEDS: INSULIN LISPRO (humaLOG) 300 UNIT/3 ML VIAL SQ SCH ×7 (07:08→21:09)
--- NOTE | 2016-07-03 08:26 | CONS ---
DATE OF CONSULTATION: 07/02/2016 REASON FOR CONSULTATION: Bacteremia. HISTORY OF PRESENT ILLNESS: The patient is a 66-year-old female brought into the ER on 06/29/2016 with the chief complaints of difficulty in breathing. The patient says she woke up having significant shortness of breath. The patient said she waited for an hour to see if it will turn around. However, the patient continued to have significant shortness of breath. The patient denies having significant cough or any sputum production and no URI symptoms. No fevers, no chills. She did have some postnasal drip for which is mostly clear. With these symptoms, the patient presented to the [facility] ER. The patient did have chest x-ray, which shows pulmonary vascular hypertension, interstitial edema and small effusions. The patient did not have any fever and no elevated white count. The patient did have blood cultures obtained in the ER both of them at the same site, which did not show any micrococcus species. The patient was started on vancomycin. I was asked to see the patient for further recommendation regarding antibiotic therapy. Patient's breathing has improved. The patient denies significant chest pain. No abdominal pain. No nausea, no vomiting, no diarrhea. No skin lacerations or any wound or joint swelling. REVIEW OF SYSTEMS: CONSTITUTIONAL: Positive for weakness but no fever. EYES: No complaint. ENT: As per HPI. RESPIRATORY: As per HPI. CARDIOVASCULAR: No complaint. GENITOURINARY: No complaint. GASTROINTESTINAL: No complaint. MUSCULOSKELETAL: Some low back pain. INTEGUMENTARY: No complaint. ENDOCRINE: No complaint. PSYCHOLOGICAL: No complaint. NEUROLOGICAL: No complaint. PAST MEDICAL HISTORY: Significant for COPD, CVA, diabetes mellitus, GI bleeding, fibromyalgia, hypertension, hyperlipidemia, [place], osteoarthritis, pneumonia, right femoral aneurysm. PAST SURGICAL HISTORY: Cholecystectomy, PTCA with stent placement, EGD, colonoscopy. SOCIAL HISTORY: Quit smoking back in May 2015. No drinking or drug use. FAMILY HISTORY: Father with history of liver cancer, at age 56. Mother with history of CVA and TIA. ALLERGIES: HYDRALAZINE, CODEINE, HYDROCODONE, LISINOPRIL. Medications currently include the patient is on Tylenol, Ventolin, Norvasc, aspirin, Lipitor, Coreg, Plavix, Bentyl, Lomotil, Lasix, Lantus, Humalog, Ativan, Nystatin powder, Protonix, Restoril, vancomycin 1500 daily. On examination, her blood pressure 146/56 with a pulse of 56, temperature 98.7. She is 95% on room air. General description is an elderly female up in bed in no distress. No tachypnea or accessory muscle respiration use. HEENT examination shows pallor. There is no scleral icterus. Oral mucous membrane dry. NECK: Trachea central. There is no thyromegaly. LUNGS: Unlabored breathing. Clear to auscultation. HEART: S1, S2 regular rate and rhythm. No murmur. ABDOMEN: Soft, no tenderness. EXTREMITIES: No edema of the feet. Examination of the lumbosacral spine area, no swelling or redness or significant tenderness. NEUROLOGICAL: Patient awake, alert, oriented x3. Mood and affect normal. SKIN EXAMINATION: No rash or mass palpable. LABS: Hemoglobin is 7.6, white count of 7.8 with a BUN of 14, creatinine 1.30. Blood culture with micrococcus species. DIAGNOSTIC IMPRESSION AND PLAN: Patient with positive blood culture with micrococcus species in a patient admitted to the hospital with difficulty breathing and the patient did have an echocardiogram, which did not show any evidence of vegetation. Patient is not running any fever. No evidence of any cellulitis or any clearcut focus of infection, more likely pointing towards a skin contamination rather than a true infection. PLAN: 1. Repeat blood culture has been ordered to make sure there is no evidence of any persistent positive blood cultures. If those are negative will be able to safely discontinue the vancomycin. 2. Family was present at beside. Their questions and concerns were answered. [place]
[2016-07-03] MEDS: ACETAMINOPHEN TAB 500 MG TAB PO PRN ×2 (09:20→21:10)
--- NOTE | 2016-07-03 09:50 | PN ---
DATE OF SERVICE: 07/02/2016 This 66-year-old woman was admitted with shortness of breath and CHF acute exacerbation, also had vaginal bleeding. The patient underwent D&C by the BENCH REPAIR TECHNICIAN. Hemoglobin is 7.6 at this time compared to 8.2 yesterday. The patient will be closely monitored. Blood sugar is also elevated. On exam, alert and oriented x3. Pulse is 66, blood pressure 140/62, respirations 18, temperature 98.7, pulse ox 94% on room air. HEENT: Conjunctivae normal. NECK: No jugular venous distention. CARDIOVASCULAR: S1 and S2, muffled. RESPIRATORY: Breath sounds diminished at the bases. A few rhonchi, no crackles. ABDOMEN: Soft, obese, nontender. LEGS: No edema, no swelling. NERVOUS SYSTEM: No focal deficits. LABS: WBC 7.3, hemoglobin 7.6. Accu-Cheks are noted. ASSESSMENT: 1. Shortness of breath with possible congestive heart failure acute exacerbation with chronic diastolic dysfunction, ejection 55% to 60%, which is normal on the most recent 2-D echo. 2. Continued vaginal bleeding, possibly secondary to uterine polyp with acute on chronic blood loss anemia, status post dilatation and curettage. 3. Micrococcus from the blood cultures. 4. Chronic kidney disease, stage III. 5. Mild valvular abnormalities in the 2-D echo. 6. Diabetes mellitus type 2, uncontrolled. 7. Obesity with body mass index of 40.1. 8. History of recent anemia bleeding. 9. History of asthma and chronic obstructive pulmonary disease. 10. History of cerebrovascular accident, transient ischemic attack. 11. Diabetes mellitus type 2. 12. Fibromyalgia. 13. History of gastrointestinal bleed. 14. History of hypertension. 15. History of hyperlipidemia. 16. History of myocardial infarction. 17. History of degenerative joint disease. 18. History of pneumonia. 19. History of femoral pseudoaneurysm. 20. Pulmonary hypertension. 21. History of irritable bowel syndrome. 22. History of gastric cancer. 23. History of stroke and cerebrovascular accident. 24. History of cholecystectomy. 25. History of coronary artery disease and stent. 26. History of claustrophobia. 27. Anxiety and depression, not otherwise specified. 28. Remote history of nicotine dependence. 29. FULL CODE. RECOMMENDATIONS AND DISCUSSION: I recommend to continue the current medications, continue monitoring and symptomatic treatment. Otherwise at this time, I recommend to repeat labs. Closely monitor along with Cardiology. Continue with antiplatelet agents. Guarded prognosis. Further recommendations to follow. The blood culture is showing micrococcus. Will closely follow with Infectious Disease as well. Further recommendations to follow. MTDD
[2016-07-03] MEDS: NYSTATIN 100,000 UNIT/GM POWD 15 GM TOPICAL SCH ×2 (09:55→20:38)
[2016-07-03] MEDS: amLODIPine 10 MG TAB PO SCH (09:56)
[2016-07-03] MEDS: ASPIRIN 81 MG CHEW PO SCH (09:56)
[2016-07-03] MEDS: FUROSEMIDE 40 MG TAB PO SCH ×2 (09:56→17:58)
--- NOTE | 2016-07-03 10:47 | P.PN ---
Subjective Principal diagnosis: CHF/CAD This is a pleasant 66-year-old female patient who I follow as an outpatient with known history of CAD and prior stenting of the left main as well as RCA, mild ischemic cardiomyopathy with an ejection fraction between 40- 45%, history of CVA with right side weakness, as well as multiple comorbid conditions who was admitted to the hospital with dyspnea. The patient was found to be anemic. She was experiencing anginal bleeding. The patient underwent D&C. Also she was found to be in mild congestive heart failure exacerbation where she was started on Lasix IV then she was switched to Lasix by mouth. I'll follow-up with her today, she denies having any chest pain or discomfort and the shortness of breath seems to be improved. She has mild right leg edema. The hemoglobin is 8.2 this morning. We'll continue the current medical treatment and continue following up with the patient. The patient might be able to be discharged home in the next 24 hours. Objective - Vital Signs Vital signs: Vital Signs Temp 97.8 F 07/03/16 04:00 Pulse 68 07/03/16 04:00 Resp 16 07/03/16 04:00 BP 151/63 07/03/16 04:00 Pulse Ox 96 07/03/16 04:00 Intake & Output 07/02/16 07/03/16 07/03/16 18:59 06:59 18:59 Intake Total 180 550 300 Output Total 600 800 400 Balance -420 -250 -100 Weight 103.6 kg Intake: IV 120 .9 120 Intake, IV Titration 250 Amount Vancomycin 1,500 mg In 250 Sodium Chloride 0.9% 250 ml @ 125 mls/hr IVPB HS [facility] Rx#:[id number] Oral 180 180 300 Output: Urine 600 800 400 Other: Voiding Method Bedside Commode Bedside Commode - Constitutional General appearance: Present: no acute distress - Respiratory Respiratory: bilateral: CTA - Cardiovascular Rhythm: regular Heart sounds: normal: S1, S2 - Labs CBC & Chem 7: 07/03/16 05:23 07/03/16 05:23 Labs: Abnormal Lab Results - Last 24 Hours (Table) 07/02/16 07/02/16 07/02/16 Range/Units 11:38 16:45 20:24 RBC (3.80-5.40) m/uL Hgb (11.4-16.0) gm/dL Hct (34.0-46.0) % MCV (80.0-100.0) fL MCH (25.0-35.0) pg MCHC (31.0-37.0) g/dL RDW (11.5-15.5) % Chloride (98-107) mmol/L BUN (7-17) mg/dL Creatinine (0.52-1.04) mg/dL Glucose (74-99) mg/dL POC Glucose (mg/dL) 251 H 225 H 183 H (75-99) mg/dL 07/03/16 07/03/16 07/03/16 Range/Units 05:23 05:23 05:58 RBC 3.49 L (3.80-5.40) m/uL Hgb 8.2 L (11.4-16.0) gm/dL Hct 26.8 L (34.0-46.0) % MCV 76.9 L (80.0-100.0) fL MCH 23.5 L (25.0-35.0) pg MCHC 30.5 L (31.0-37.0) g/dL RDW 16.3 H (11.5-15.5) % Chloride 108 H (98-107) mmol/L BUN 44 H (7-17) mg/dL Creatinine 1.32 H (0.52-1.04) mg/dL Glucose 171 H (74-99) mg/dL POC Glucose (mg/dL) 169 H (75-99) mg/dL Assessment and Plan Plan: Assessment #1 anemia which seems to be stable #2 for GI no bleeding which has improved #3 status post D&C #4 mild heart failure which has improved #5 CAD and prior stenting as described above #6 mild ischemic cardiomyopathy #7 multiple comorbid conditions Plan #1 continue the patient on the current medical treatment #2 continue monitor the hemoglobin as well #3 follow-up with the patient
[2016-07-03 11:41] LABS: Glucose,Whole Blood 122 mg/dL (75-99)
[2016-07-03] MEDS: DICYCLOMINE 10 MG CAP PO SCH ×3 (13:10→21:07)
[2016-07-03 16:56] LABS: Glucose,Whole Blood 67 mg/dL (75-99)
[2016-07-03 20:38] LABS: Glucose,Whole Blood 202 mg/dL (75-99)
[2016-07-03] MEDS: CLOPIDOGREL 75 MG TAB PO SCH (20:38)
[2016-07-03] MEDS: ATORVASTATIN 80 MG TAB PO SCH (20:38)
[2016-07-04 06:11] LABS: Glucose,Whole Blood 95 mg/dL (75-99)
[2016-07-04 06:21] LABS: Anisocytosis Slight; Basophils % (A) 0 %; CH 22.6; Eosinophils # (A) 0.4 k/uL (0-0.7); Eosinophils % (A) 5 %; HCT 26.7 % (34.0-46.0); HDW 3.51; HGB 7.8 gm/dL (11.4-16.0); Hypochromasia Marked; Luc # (Auto) 0.15; Luc % (Auto) 2; Lymphocytes # (A) 1.4 k/uL (1.0-4.8); Lymphocytes % (A) 18 %; MCHC 29.4 g/dL (31.0-37.0); MCV 78.2 fL (80.0-100.0); Mean Platelet Volume 6.3; Monocytes # (A) 0.4 k/uL (0-1.0); Monocytes % (A) 5 %; Neutrophils # (A) 5.4 k/uL (1.3-7.7); Neutrophils % (A) 70 %; Poikilocytosis Slight; RBC 3.41 m/uL (3.80-5.40); RDW 16.1 % (11.5-15.5); WBC 7.7 k/uL (3.8-10.6); WBC (Perox) 8.16
[2016-07-04 06:33] LABS: Calcium 8.9 mg/dL (8.4-10.2); Potassium 4.1 mmol/L (3.5-5.1)
[2016-07-04] MEDS: PANTOPRAZOLE 40 MG TABLET PO SCH (07:10)
[2016-07-04] MEDS: CARVEDILOL 12.5 MG TAB PO SCH ×2 (07:10→17:42)
[2016-07-04] MEDS: INSULIN GLARGINE 100 UNIT/ML 10 ML VIAL SQ SCH (07:18)
[2016-07-04] MEDS: INSULIN LISPRO (humaLOG) 300 UNIT/3 ML VIAL SQ SCH ×6 (07:18→17:37)
--- NOTE | 2016-07-04 09:34 | P.PN ---
Subjective This is a pleasant 66-year-old female patient who I follow as an outpatient with known history of CAD and prior stenting of the left main as well as RCA, mild ischemic cardiomyopathy with an ejection fraction between 40- 45%, history of CVA with right side weakness, as well as multiple comorbid conditions who was admitted to the hospital with dyspnea. The patient was found to be anemic. She was experiencing anginal bleeding. The patient underwent D&C. Also she was found to be in mild congestive heart failure exacerbation where she was started on Lasix IV then she was switched to Lasix by mouth. On follow-up with her today, she denies having any chest pain or discomfort and the shortness of breath seems to be improved. The hemoglobin this morning is 7.8 from 8.2. Beside that, the blood pressure has been slightly uncontrolled and I am starting the patient on GERALDINE inhibitor with lisinopril at 5 mg by mouth daily. Objective - Vital Signs Vital signs: Vital Signs Temp 97.6 F 07/04/16 04:00 Pulse 66 07/04/16 04:00 Resp 20 07/04/16 04:00 BP 150/77 07/04/16 04:00 Pulse Ox 97 07/04/16 04:00 Intake & Output 07/03/16 07/04/16 07/04/16 18:59 06:59 18:59 Intake Total 300 160 Output Total 800 600 Balance -500 -440 Weight 103.1 kg Intake: IV 160 .9 160 Oral 300 Output: Urine 800 600 Other: Voiding Method Bedside Commode - Constitutional General appearance: Present: no acute distress - Respiratory Respiratory: bilateral: CTA - Cardiovascular Rhythm: regular Heart sounds: normal: S1, S2 - Labs CBC & Chem 7: 07/04/16 05:34 07/04/16 05:34 Labs: Abnormal Lab Results - Last 24 Hours (Table) 07/03/16 07/03/16 07/03/16 Range/Units 11:38 16:44 20:36 RBC (3.80-5.40) m/uL Hgb (11.4-16.0) gm/dL Hct (34.0-46.0) % MCV (80.0-100.0) fL MCH (25.0-35.0) pg MCHC (31.0-37.0) g/dL RDW (11.5-15.5) % Chloride (98-107) mmol/L BUN (7-17) mg/dL Creatinine (0.52-1.04) mg/dL POC Glucose (mg/dL) 122 H 67 L 202 H (75-99) mg/dL 07/04/16 07/04/16 Range/Units 05:34 05:34 RBC 3.41 L (3.80-5.40) m/uL Hgb 7.8 L (11.4-16.0) gm/dL Hct 26.7 L (34.0-46.0) % MCV 78.2 L (80.0-100.0) fL MCH 23.0 L (25.0-35.0) pg MCHC 29.4 L (31.0-37.0) g/dL RDW 16.1 H (11.5-15.5) % Chloride 110 H (98-107) mmol/L BUN 38 H (7-17) mg/dL Creatinine 1.24 H (0.52-1.04) mg/dL POC Glucose (mg/dL) (75-99) mg/dL Microbiology - Last 24 Hours (Table) 07/02/16 17:27 Blood Culture - Preliminary Blood No Growth after 24 hours 07/02/16 15:15 Blood Culture - Preliminary Blood No Growth after 24 hours Assessment and Plan Plan: Assessment #1 status post D&C #2 anemia seems to be slightly worse today #3 coronary artery disease and prior stenting of the left main and RCA #4 hypertension #5 history of CVA Plan #1 LATHE MACHINE OPERATOR to follow-up with the patient #2 start the patient on lisinopril at 5 mg by mouth daily #3 continue monitor the hemoglobin
[2016-07-04] MEDS: ACETAMINOPHEN TAB 500 MG TAB PO PRN (10:05)
[2016-07-04] MEDS: amLODIPine 10 MG TAB PO SCH (10:06)
[2016-07-04] MEDS: FUROSEMIDE 40 MG TAB PO SCH ×2 (10:06→15:09)
[2016-07-04] MEDS: ASPIRIN 81 MG CHEW PO SCH (10:06)
[2016-07-04] MEDS: DICYCLOMINE 10 MG CAP PO SCH ×2 (10:06→15:08)
[2016-07-04] MEDS: NYSTATIN 100,000 UNIT/GM POWD 15 GM TOPICAL SCH (10:07)
[2016-07-04 11:54] LABS: Glucose,Whole Blood 129 mg/dL (75-99)
--- NOTE | 2016-07-04 14:21 | PN ---
DATE OF SERVICE: 07/03/2016 Reason for followup is positive blood culture. INTERVAL HISTORY: The patient is afebrile. She is breathing comfortably. Denies any significant chest pain. No cough, no abdominal pain, no nausea, vomiting or any diarrhea. On examination, blood pressure is 159/84 with a pulse of 54, temperature 97.1. She is 98% on room air. General description is an elderly female up in the chair, in no distress. RESPIRATORY SYSTEM: Unlabored breathing. Clear to auscultation. HEART: S1, S2, regular rate and rhythm with no murmur. ABDOMEN: Soft, no tenderness. EXTREMITIES: No edema of the feet. LABS: Hemoglobin 8.2, white count of 8.1 with a BUN of 44, creatinine 1.32. Blood pressure with a micrococcus species. Followup blood culture has been negative. DIAGNOSTIC IMPRESSION AND PLAN: Patient with positive blood culture with a micrococcus species that was done at the same time in the ER on arrival. More likely is one of contamination rather than a true infection as the patient has no clinical disease to go along with it. She is afebrile, no elevated white count. Echocardiogram did not show any evidence of endocarditis. I recommend discontinuation of the vancomycin. Continue supportive care.
[2016-07-04 14:34] LABS: Glucose,Whole Blood 52 mg/dL (75-99)
[2016-07-04 14:48] LABS: Glucose,Whole Blood 60 mg/dL (75-99)
[2016-07-04 15:00] LABS: Glucose,Whole Blood 64 mg/dL (75-99)
[2016-07-04 15:18] LABS: Glucose,Whole Blood 91 mg/dL (75-99)
--- NOTE | 2016-07-04 15:24 | XR ---
EXAMINATION TYPE: XR knee complete RT DATE OF EXAM: 07/02/2016 9:16 AM CLINICAL HISTORY: Bumping injury with pain. TECHNIQUE: Three views of the right knee are obtained. COMPARISON: None. FINDINGS: There is no acute fracture/dislocation evident in right knee. There is mild tricompartment joint space loss and spurring. There are larger spurs from superior and inferior patellar pole at th e attachment of distal quadriceps tendon and proximal patellar tendons. The overlying soft tissue ryan ears unremarkable. IMPRESSION: There is no acute fracture or dislocation in the right knee.
--- NOTE | 2016-07-04 16:22 | PN ---
DATE OF SERVICE: 07/03/2016 HISTORY OF PRESENT ILLNESS: This 66-year-old woman who was admitted with shortness of breath with possible CHF exacerbation is being closely monitored. No active bleeding was noted. OBG was recommended. Consultation with Dr. Amaya who is OBG oncologist. Dr. Dacosta is also following the patient closely. The patient had recent stents. No chest pain, no palpitations. No fever. On exam, alert and oriented times three. Pulse 62, blood pressure 144/72. Respiratory rate 18. Temperature 97.6. Pulse ox 100% on room air. HEENT: Conjunctivae normal. Oral mucosa moist. NECK: No jugular venous distention. CARDIOVASCULAR: S1, S2 muffled. RESPIRATORY: Breath sounds diminished in the bases. No rhonchi. No crackles. ABDOMEN: Soft. Nontender. No mass palpable. Obese. LEGS: No edema. No swelling. CENTRAL NERVOUS SYSTEM: No focal deficits. LABS: At this time, WBC 8.2, hemoglobin 8.2, creatinine 1.32, Accu-cheks are noted. ASSESSMENT: 1. Shortness of breath, possible congestive heart failure acute exacerbation with acute on chronic diastolic dysfunction, ejection fraction 55% to 60%, which is normal on the most 2-D echocardiogram present on admission. 2. Continued vaginal bleeding possibly secondary to uterine polyp with acute on chronic blood loss anemia status post dilatation and curettage. 3. Micrococcus in the blood cultures. 4. Chronic kidney disease stage III. 5. Mild valvular abnormalities in the 2-D echo. 6. Diabetes mellitus type 2, uncontrolled. 7. Obesity with body mass index of 40.1. 8. History of recent anemia with bleeding. 9. History of asthma, chronic obstructive pulmonary disease. 10. History of cerebrovascular accident, transient ischemic attack. 11. Diabetes mellitus type 2. 12. Fibromyalgia. 13. History of gastrointestinal bleed. 14. History of hypertension. 15. History of hyperlipidemia. 16. History of myocardial infarction. 17. History of degenerative joint disease. 18. History of pneumonia. 19. History of femoral pseudoaneurysm. 20. History of pulmonary hypertension. 21. History of irritable bowel syndrome. 22. History of gastric cancer. 23. History of stroke and cerebrovascular accident. 24. History of cholecystectomy. 25. History of coronary artery disease and stent. 26. History of claustrophobia. 27. Anxiety, depression, not otherwise specified. 28. Remote history of nicotine dependence. 29. FULL CODE. Recommendations and discussion: I recommend to continue current medication, continue with symptomatic treatment. Otherwise, at this time, we will monitor the patient closely. I would recommend repeat labs. Repeat hemoglobin and closely follow. Discussed with Dr. Dacosta and further recommendations to follow.
[2016-07-04 16:50] LABS: Glucose,Whole Blood 103 mg/dL (75-99)
[2016-07-04 20:06] VITALS: BP 176/59; PULSE 68; RESP 14; TEMP 97.3
--- NOTE | 2016-07-05 05:21 | PN ---
DATE OF SERVICE: 07/04/2016 Reason for followup is positive blood culture. INTERVAL HISTORY: The patient is afebrile. She has been breathing comfortably. Denies having any significant chest pain, cough. No abdominal pain. No nausea, vomiting or any diarrhea. On examination, blood pressure 136/58 with a pulse of 68, temperature 97.3. She is 98% on room air. General description is an elderly female up in the chair in no distress. RESPIRATORY SYSTEM: Unlabored breathing. Clear to auscultation. HEART: S1, S2. Regular rate and no murmur. No murmur. ABDOMEN: Soft, no tenderness. LABS: Hemoglobin is 7.8, white 7.7. BUN of 38, creatinine 1.24. Blood culture repeat has been negative. DIAGNOSTIC IMPRESSION AND PLAN: Patient with positive blood culture with Micrococcus species and patient has no clinical disease to go along with it. She is not running any fever. No elevated white count, more likely skin contamination, Patient currently doing well off antibiotics. Will continue to monitor closely off antibiotic. Continue supportive care. [place]
--- NOTE | 2016-07-05 08:22 | DS ---
DATE OF ADMISSION: 06/29/2016 DATE OF DISCHARGE: 07/04/2016 FINAL DIAGNOSES: 1. Shortness of breath with possible congestive heart failure acute exacerbation with acute on chronic diastolic dysfunction, ejection fraction 55% to 60% which is normal on the most recent 2-D echo. 2. Continued vaginal bleeding, possibly secondary to uterine polyp with acute on chronic blood loss anemia, status post dilatation and curettage. 3. Micrococcus in the blood culture. 4. Chronic kidney disease stage III. 5. Mild volume abnormality on the 2-D echo. 6. Diabetes mellitus type 2 uncontrolled. 7. Obesity with body mass index of 40.1. 8. History of recent anemia and secondary to the bleeding. 9. History of asthma, chronic obstructive pulmonary disease. 10. History of cerebrovascular accident, transient ischemic attack. 11. Diabetes mellitus type 2. 12. Fibromyalgia. 13. History of gastrointestinal bleed. 14. History of hypertension. 15. Hyperlipidemia. 16. History of myocardial infarction. 17. History of degenerative joint disease. 18. History of pneumonia. 19. History of femoral pseudoaneurysm. 20. Pulmonary hypertension. 21. History of irritable bowel syndrome. 22. History of gastric cancer. 23. History of stroke and cerebrovascular accident. 24. History of cholecystectomy. 25. History of coronary artery disease and stent. 26. History of claustrophobia. 27. Anxiety and depression, not otherwise specified. 28. Remote history of nicotine dependence. 29. FULL CODE. DISCHARGE DISPOSITION: Patient will be discharged in a stable condition with guarded prognosis. Total time taken more than 35 minutes. HISTORY OF PRESENT ILLNESS: This is a 66-year-old woman with a past medical history of multiple medical problems admitted with shortness of breath, CHF acute exacerbation, vaginal bleeding. EXTENSION COURSE COORDINATOR evaluated the patient. Dr. Barron performed D&C. Patient improved significantly. Cardiology saw the patient. Recommended to continue with the antiplatelet treatment. The patient was supposed to follow up with Dr. Amaya, the patient's EXTENSION COURSE COORDINATOR oncologist. On exam, vitals are stable. CARDIOVASCULAR SYSTEM: S1, S2 muffled. ABDOMEN: Soft. NERVOUS SYSTEM: No focal deficits. Hemoglobin 7.8. Patient is going to receive one more transfusion because of multiple complex medical issues and symptomatic anemia. Discharge medications: 1. Diet is cardiac. 2. Activity limited until followup. 3. Follow up with Dr. [place] in 2 to 3 days. 4. Follow up with Dr. Amaya as advised. 5. Follow up with Dr. Dacosta as advised. 6. Follow up with Dr. Forbes as advised. Medications are: 1. Albuterol 1 to 2 q.6 p.r.n. 2. Aspirin 81 mg daily. 3. Lipitor 80 mg q.h.s. 4. Coreg 12.5 mg b.i.d. 5. Plavix 75 mg q.h.s. 6. Bentyl 10 mg p.o. t.i.d. 7. Lomotil 2 tablets q.i.d. p.r.n. 8. Lasix 40 mg p.o. b.i.d. 9. Novolin 22 units subQ a.c. t.i.d. 10. Lantus 60 units subQ q.h.s. 11. Lantus 10 units subQ breakfast. 12. Nystatin one application topically p.r.n. 13. Protonix 40 mg p.o. daily. 14. Norvasc 10 mg p.o. daily. Once again, the patient will be discharged in a stable condition with guarded prognosis.
[2016-07-05] MEDS ORDERED: LISINOPRIL 5 MG TAB PO SCH (09:00)
== END 2016-07-04 20:39 | disposition home health service (06) | DRG 981 ==
LOC: EC 08:22 → 6SEL 10:17 → 5ONC 07-04 13:24
PROVIDERS: ADMIT Internal Medicine; ATTEND Internal Medicine
PROC: 0UCC7ZZ Extirpation of Matter from Cervix, Via Natural or Artificial Opening (ICD-10-PCS; principal; 2016-07-01 08:50)
PROC: 0UDB7ZX Extraction of Endometrium, Via Natural or Artificial Opening, Diagnostic (ICD-10-PCS; principal; 2016-07-01 08:50)
DX: I13.0 Hypertensive heart and chronic kidney disease with heart failure and stage 1 through stage 4 chronic kidney disease, or unspecified chronic kidney disease (principal); I50.23 Acute on chronic systolic (congestive) heart failure; E11.22 Type 2 diabetes mellitus with diabetic chronic kidney disease; I27.2 Other secondary pulmonary hypertension; D62 Acute posthemorrhagic anemia; E11.65 Type 2 diabetes mellitus with hyperglycemia; I69.351 Hemiplegia and hemiparesis following cerebral infarction affecting right dominant side; J98.11 Atelectasis; Z68.41 Body mass index [BMI] 40.0-44.9, adult; E66.01 Morbid (severe) obesity due to excess calories; I08.1 Rheumatic disorders of both mitral and tricuspid valves; D50.0 Iron deficiency anemia secondary to blood loss (chronic); E78.00 Pure hypercholesterolemia, unspecified; E78.5 Hyperlipidemia, unspecified; F32.9 Major depressive disorder, single episode, unspecified; F41.9 Anxiety disorder, unspecified; G89.29 Other chronic pain; H40.9 Unspecified glaucoma; I25.10 Atherosclerotic heart disease of native coronary artery without angina pectoris; I25.2 Old myocardial infarction; I25.5 Ischemic cardiomyopathy; J44.9 Chronic obstructive pulmonary disease, unspecified; J45.909 Unspecified asthma, uncomplicated; N84.0 Polyp of corpus uteri; K57.30 Diverticulosis of large intestine without perforation or abscess without bleeding; K58.9 Irritable bowel syndrome, unspecified; M19.90 Unspecified osteoarthritis, unspecified site; M79.7 Fibromyalgia; N18.3 Chronic kidney disease, stage 3 (moderate); N95.0 Postmenopausal bleeding; Z79.02 Long term (current) use of antithrombotics/antiplatelets; Z79.82 Long term (current) use of aspirin; Z85.028 Personal history of other malignant neoplasm of stomach; Z87.01 Personal history of pneumonia (recurrent); Z92.3 Personal history of irradiation; Z87.11 Personal history of peptic ulcer disease; Z87.891 Personal history of nicotine dependence; Z95.5 Presence of coronary angioplasty implant and graft; Z99.3 Dependence on wheelchair; Z79.4 Long term (current) use of insulin; Z79.899 Other long term (current) drug therapy; Z88.5 Allergy status to narcotic agent; Z88.8 Allergy status to other drugs, medicaments and biological substances
CPT/HCPCS: 36415; 71020; 72110; 80048; 80053; 81001; 82550; 82553; 83036; 83735; 83880; 84484; 85025; 85027; 85610; 85730; 86850; 86870; 86880; 86900; 86901; 86902; 86920; 87040; 88305; 93005; 93306; 94640; 96374; 96375; 99291

== ENCOUNTER 2016-07-13 08:22 | Inpatient (IN) | payer MEDICARE ==
[2016-07-13] MEDS ORDERED: SUCCINYLCHOLINE CHLORIDE VIAL 200 MG/10 ML VIAL IV STA (08:28)
[2016-07-13] MEDS ORDERED: IPRATROPIUM-ALBUTEROL 3 ML NEB INHALATION STA (08:32)
[2016-07-13] MEDS ORDERED: methylPREDNISolone SOD SUCCI 125 MG/2 ML VIAL IV STA (08:32)
[2016-07-13] MEDS ORDERED: MAGNESIUM SULFATE-D5W PMX 1 GM in DEXTROSE/WATER 1 100ML.BAG IVPB STA (08:32)
[2016-07-13] MEDS ORDERED: MIDAZOLAM (PF) 1 MG/ML 5 ML VIAL IV STA (08:41)
[2016-07-13] MEDS ORDERED: FUROSEMIDE 10 MG/ML 4 ML VIAL IV STA (08:59)
[2016-07-13] MEDS ORDERED: NITROGLYCERIN OINT 1 INCH/GM PACKET TOPICAL STA (08:59)
[2016-07-13] MEDS: SODIUM CHLORIDE 0.9% 1,000 ML IV SCH (09:00)
[2016-07-13] MEDS ORDERED: PROPOFOL 500 MG in EMPTY BAG 1 BAG IV ONE (09:06)
--- NOTE | 2016-07-13 09:10 | XR ---
EXAMINATION TYPE: XR chest 1V portable DATE OF EXAM: 07/13/2016 9:01 AM CLINICAL HISTORY: Postintubation. TECHNIQUE: 2 AP portable supine views of the chest are obtained. COMPARISON: Chest x-ray June 29, 2016 FINDINGS: There is new endotracheal tube with tip below clavicular margin but above aortic knob, appr oximately 6 cm above the denise. There is new orogastric tube projecting below left hemidiaphragm. Ti p is in the left lateral upper quadrant. There is cardiomegaly with atherosclerotic aortic knob redemonstrated. There is new right greater kalie n left opacity felt to reflect alveolar edema and/or infiltrates with new Lianet B lines in the perip lorrie. There are suspected stable tiny bilateral pleural effusions. There is persistent increased opac ity left lung base could reflect atelectasis and/or infiltrate. More prominent left pericardial fat p ad is noted on recent CT abdomen at this level. Some chronic thickening of right paratracheal stripe is noted. Prominent mediastinum is unchanged from prior studies. This correlates with prominent media stinal fat on chest CT July 05, 2015. IMPRESSION: 1. ET and OGT are satisfactory in position. 2. Suspect CHF exacerbation as there is cardiomegaly redemonstrated with new alveolar and interstitia l edema felt present bilaterally. Underlying infiltrates are difficult to exclude. There are suspecte d tiny bilateral pleural effusions noted.
[2016-07-13 09:12] LABS: Anisocytosis Slight; Basophils # (A) 0.1 k/uL (0-0.2); Basophils % (A) 1 %; CHCM 29.4; Eosinophils # (A) 0.8 k/uL (0-0.7); Eosinophils % (A) 3 %; HCT 33.9 % (34.0-46.0); HDW 3.92; HGB 10.1 gm/dL (11.4-16.0); Hypochromasia Marked; Luc # (Auto) 0.43; Luc % (Auto) 2; Lymphocytes # (A) 4.7 k/uL (1.0-4.8); Lymphocytes % (A) 21 %; MCH 23.5 pg (25.0-35.0); MCHC 29.9 g/dL (31.0-37.0); MCV 78.4 fL (80.0-100.0); Mean Platelet Volume 6.7; Microcytosis Slight; Monocytes # (A) 1.1 k/uL (0-1.0); Monocytes % (A) 5 %; Neutrophils # (A) 15.7 k/uL (1.3-7.7); Neutrophils % (A) 69 %; Poikilocytosis Slight; RBC 4.32 m/uL (3.80-5.40); RDW 16.2 % (11.5-15.5); WBC 22.7 k/uL (3.8-10.6); WBC (Perox) 23.33
[2016-07-13 09:14] LABS: Calcium 8.9 mg/dL (8.4-10.2); Magnesium 1.7 mg/dL (1.6-2.3); Potassium 4.6 mmol/L (3.5-5.1); Total Bilirubin 0.6 mg/dL (0.2-1.3); Total Protein 6.6 g/dL (6.3-8.2)
[2016-07-13 09:19] LABS: Appearance,Urine Cloudy (Clear); Bilirubin,Urine Negative (Negative); Glucose,Urine (UA) 4+ (Negative); Ketones,Urine Negative (Negative); Leukocyte Esterase,Urine Trace (Negative); Nitrite,Urine Negative (Negative); PH, Urine 6.5 (5.0-8.0); Particle Count 51740; Protein,Urine 3+ (Negative); RBC,Urine 18 /hpf (0-5); Squamous Epithelial Cell,Urine 1 /hpf (0-4); UA Billing (MACRO vs. MICRO) MICRO; Urobilinogen,Urine <2.0 mg/dL (<2.0); WBC,Urine 15 /hpf (0-5)
[2016-07-13 09:23] LABS: Partial Thromboplastin Time 29.2 sec (22.0-30.0); Prothrombin Time 10.6 sec (9.0-12.0)
[2016-07-13 09:38] LABS: Creatine Kinase MB 1.3 ng/mL (0.0-2.4); Troponin I 0.013 ng/mL (0.000-0.034)
--- NOTE | 2016-07-13 09:50 | ED ---
SOB HPI - General Chief Complaint: Shortness of Breath Stated Complaint: diff breathing Time Seen by Provider: 07/13/16 08:22 Source: family, EMS, RN notes reviewed, old records reviewed Mode of arrival: EMS Limitations: altered mental status - History of Present Illness Initial Comments: This is a 66-year-old female with a history of COPD and CHF apparently woke up about 1-1/2 hours prior to admission with shortness of breath. He was very severe EMS was contacted and she is brought in by EMS. She was given medication did not respond well. She presents to the emergency department respiratory distress. She With marked accessory muscle involvement and marked lethargy. Per her no recent fevers chills or sweats. No reports of chest pain. MD Complaint: shortness of breath - Related Data Home Medications Medication Instructions Recorded Confirmed Clopidogrel [Plavix] 75 mg PO HS 06/12/15 07/13/16 Insulin Aspart [NovoLOG] 22 unit SQ AC-TID 12/10/15 07/13/16 Insulin Glargine [Lantus] 60 unit SQ HS 01/15/16 07/13/16 Diphenox-Atrop 2.5-0.025 mg 2 tab PO QID PRN 01/27/16 07/13/16 [Lomotil] Albuterol Sulfate [Proventil Hfa] 1 - 2 puff INHALATION RT-Q6H PRN 02/15/16 Insulin Glargine [Lantus] 10 unit SQ AC-BRKFST 02/15/16 07/13/16 Carvedilol [Coreg] 12.5 mg PO BID 03/23/16 07/13/16 Dicyclomine [Bentyl] 10 mg PO TID 06/16/16 07/13/16 Furosemide [Lasix] 40 mg PO DAILY 07/13/16 07/13/16 amLODIPine BESYLATE [Norvasc] 5 mg PO DAILY 07/13/16 07/13/16 Previous Rx's Medication Instructions Recorded Atorvastatin [Lipitor] 80 mg PO HS #30 tab 06/16/15 Pantoprazole Sodium [Protonix] 40 mg PO DAILY #30 tablet. 06/21/15 Aspirin 81 mg PO DAILY chew 08/28/15 Nystatin 100,000 Unit/gm Powd 1 applic TOPICAL BID applic 07/03/16 [Mycostatin Powder] Allergies Allergy/AdvReac Type Severity Reaction Status Date / Time hydralazine Allergy Mild Anaphylaxis Verified 07/13/16 08:24 codeine Allergy Nausea/ Verified 07/13/16 08:24 hard to wake up hydrocodone Allergy Unknown Verified 07/13/16 08:24 lisinopril Allergy Rapid Verified 07/13/16 08:24 Heart Rate Review of Systems ROS Statement: Those systems with pertinent positive or pertinent negative responses have been documented in the HPI. ROS Other: All systems not noted in ROS Statement are negative. Limitations: ROS unobtainable due to patients medical condition Past Medical History Past Medical History: Asthma, Cancer, Heart Failure, COPD, CVA/TIA, Diabetes Mellitus, Eye Disorder, Fibromyalgia, GI Bleed, Hyperlipidemia, Hypertension, Myocardial Infarction (ME), Osteoarthritis (OA), Pneumonia Additional Past Medical History / Comment(s): Pt recently admitted on 06/20/16 with acute blood loss anemia, possible uterine lesion/cancer (pt has hx of uterine cancer tx with radiation), cystitis and vaginal bleeding. 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 Last Myocardial Infarction Date:: 06/12/15 History of Any Multi-Drug Resistant Organisms: None Reported Past Surgical History: Cholecystectomy, Heart Catheterization, Heart Catheterization With Stent Additional Past Surgical History / Comment(s): 06/12/15 Cardiac cath, 06/15/15 PTCA with stent mid L main, D&C X2, YRS AGO HAD A DEVICE IN FOR RADIATION TX FOR UTERINE CA THAT WAS SINCE REMOVED.EGD/COLONOSCOPY.02/18/16 heart cath 3 stents to rca Past Anesthesia/Blood Transfusion Reactions: Motion Sickness Additional Past Anesthesia/Blood Transfusion Reaction / Comment(s): CLAUSTROPHOBIA. Pt has had blood transfusion in past-no reaction to blood Date of Last Stent Placement:: 02/18/16 Past Psychological History: Anxiety, Depression Additional Psychological History / Comment(s): Pt resides with her spouse. She is basically wheel chair bound most of the time for the past several yrs. She at times ambulates with assistance or pushes her wheelchair. She feeds herself. She has a supportive family. She has a sister that helps with her bathing and her олег and spouse will help with her medication. 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 Mother Family Medical History: CVA/TIA Additional Family Medical History / Comment(s): HEART PROBLEMS, STARTED DRINKING AFTER OF HER , she of a ruptured liver at age 58 yrs. General Exam - General Exam Comments Initial Comments: Is a well-developed obese female who is in marked respiratory distress she was minimally responsive. She was on BiPAP. Limitations: altered mental status General appearance: obtunded, in distress, obese Head exam: Present: atraumatic, normocephalic, normal inspection Eye exam: Present: PERRL, EOMI ENT exam: Present: mucous membranes dry Neck exam: Present: normal inspection. Absent: tenderness, meningismus, lymphadenopathy Respiratory exam: Present: respiratory distress, wheezes, rales, accessory muscle use, decreased breath sounds, prolonged expiratory Cardiovascular Exam: Present: regular rate, tachycardia GI/Abdominal exam: Present: soft, distended, normal bowel sounds, other (. Dr. Oliveira abdominal movements with breathing) Rectal exam: Present: deferred Extremities exam: Present: normal inspection, normal capillary refill. Absent: pedal edema Back exam: Present: normal inspection Neurological exam: Present: altered, CN II-XII intact Psychiatric exam: Present: other (Unable to assess) Skin exam: Present: other (Cool to touch). Absent: normal color Course Vital Signs 07/13/16 07/13/16 07/13/16 08:24 08:32 09:01 Temperature 97.6 F Pulse Rate 121 H 84 Respiratory 8 L Rate Blood Pressure 157/66 O2 Sat by Pulse 80 L 97 Oximetry 07/13/16 07/13/16 07/13/16 09:29 09:58 10:06 Temperature Pulse Rate 77 75 72 Respiratory 18 18 Rate Blood Pressure 148/60 171/70 O2 Sat by Pulse 97 97 Oximetry 07/13/16 10:07 Temperature Pulse Rate 79 Respiratory Rate Blood Pressure O2 Sat by Pulse Oximetry - Reevaluation(s) Reevaluation #1: 07/13/16 09:49 The patient did require immediate intubation. I did discuss this with the patient's initially she does want to be a full code. RSI was performed with successful orotracheal intubation. Reevaluation #2: 07/13/16 10:34 Reevaluation the patient after the initial treatment revealed her to be responding reasonably well. I did have a long discussion with patient family members regarding the findings. Procedures - Intubation Time Out Performed: Yes Sedative: Versed Paralytic: Succinylcholine Laryngoscope: Flores Size: 3 ET Tube Size: 7.5 ET Tube Uncuffed: No Tube Secured Depth (cm): 23 Tube Secured Location: lips Patient Tolerated Procedure: well Intubation Complications: none Medical Decision Making - Medical Decision Making I did discuss the findings with the patient's family as well as the admitting physician and ICU physician. Patient will be admitted to intensive care unit for more definitive care. - Lab Data Result diagrams: 07/13/16 08:39 07/13/16 08:39 Lab Results 07/13/16 07/13/16 07/13/16 Range/Units 08:39 08:39 08:39 WBC 22.7 H (3.8-10.6) k/uL RBC 4.32 (3.80-5.40) m/uL Hgb 10.1 L (11.4-16.0) gm/dL Hct 33.9 L (34.0-46.0) % MCV 78.4 L (80.0-100.0) fL MCH 23.5 L (25.0-35.0) pg MCHC 29.9 L (31.0-37.0) g/dL RDW 16.2 H (11.5-15.5) % Plt Count 354 D (150-450) k/uL Neutrophils % 69 % Lymphocytes % 21 % Monocytes % 5 % Eosinophils % 3 % Basophils % 1 % Neutrophils # 15.7 H (1.3-7.7) k/uL Lymphocytes # 4.7 (1.0-4.8) k/uL Monocytes # 1.1 H (0-1.0) k/uL Eosinophils # 0.8 H (0-0.7) k/uL Basophils # 0.1 (0-0.2) k/uL Hypochromasia Marked Poikilocytosis Slight Anisocytosis Slight Microcytosis Slight PT (9.0-12.0) sec INR (<1.1) APTT (22.0-30.0) sec D-Dimer (<0.60) mg/L FEU Sample Site ABG pH (7.35-7.45) ABG pCO2 (35-45) mmHg ABG pO2 (83-108) mmHg ABG HCO3 (21-25) mmol/L ABG Total CO2 (19-24) mmol/L ABG O2 Saturation (94-97) % ABG Base Excess mmol/L FiO2 % Sodium 142 (137-145) mmol/L Potassium 4.6 (3.5-5.1) mmol/L Chloride 104 (98-107) mmol/L Carbon Dioxide 24 (22-30) mmol/L Anion Gap 14 mmol/L BUN 30 H (7-17) mg/dL Creatinine 1.37 H (0.52-1.04) mg/dL Est GFR (MDRD) Af Amer 47 (>60 ml/min/1.73 sqM) Est GFR (MDRD) Non-Af 39 (>60 ml/min/1.73 sqM) Glucose 381 H (74-99) mg/dL Plasma Lactic Acid [place] (0.7-2.0) mmol/L Calcium 8.9 (8.4-10.2) mg/dL Magnesium 1.7 (1.6-2.3) mg/dL Total Bilirubin 0.6 (0.2-1.3) mg/dL AST 19 (14-36) U/L ALT 30 (9-52) U/L Alkaline Phosphatase 136 H (38-126) U/L Total Creatine Kinase 58 (30-135) U/L CK-MB (CK-2) 1.3 (0.0-2.4) ng/mL CK-MB (CK-2) Rel Index 2.2 Troponin I 0.013 (0.000-0.034) ng/mL NT-Pro-B Natriuret Pep pg/mL Total Protein 6.6 (6.3-8.2) g/dL Albumin 3.7 (3.5-5.0) g/dL Urine Color Urine Appearance (Clear) Urine pH (5.0-8.0) Ur Specific [place] (1.001-1.035) Urine Protein (Negative) Urine Glucose (UA) (Negative) Urine Ketones (Negative) Urine Blood (Negative) Urine Nitrate (Negative) Urine Bilirubin (Negative) Urine Urobilinogen (<2.0) mg/dL Ur Leukocyte Esterase (Negative) Urine RBC (0-5) /hpf Urine WBC (0-5) /hpf Ur Squamous Epith Cells (0-4) /hpf Hyaline Casts (0-2) /lpf 07/13/16 07/13/16 07/13/16 Range/Units 08:39 08:39 08:39 WBC (3.8-10.6) k/uL RBC (3.80-5.40) m/uL Hgb (11.4-16.0) gm/dL Hct (34.0-46.0) % MCV (80.0-100.0) fL MCH (25.0-35.0) pg MCHC (31.0-37.0) g/dL RDW (11.5-15.5) % Plt Count (150-450) k/uL Neutrophils % % Lymphocytes % % Monocytes % % Eosinophils % % Basophils % % Neutrophils # (1.3-7.7) k/uL Lymphocytes # (1.0-4.8) k/uL Monocytes # (0-1.0) k/uL Eosinophils # (0-0.7) k/uL Basophils # (0-0.2) k/uL Hypochromasia Poikilocytosis Anisocytosis Microcytosis PT 10.6 (9.0-12.0) sec INR 1.0 (<1.1) APTT 29.2 (22.0-30.0) sec D-Dimer 0.91 H (<0.60) mg/L FEU Sample Site ABG pH (7.35-7.45) ABG pCO2 (35-45) mmHg ABG pO2 (83-108) mmHg ABG HCO3 (21-25) mmol/L ABG Total CO2 (19-24) mmol/L ABG O2 Saturation (94-97) % ABG Base Excess mmol/L FiO2 % Sodium (137-145) mmol/L Potassium (3.5-5.1) mmol/L Chloride (98-107) mmol/L Carbon Dioxide (22-30) mmol/L Anion Gap mmol/L BUN (7-17) mg/dL Creatinine (0.52-1.04) mg/dL Est GFR (MDRD) Af Amer (>60 ml/min/1.73 sqM) Est GFR (MDRD) Non-Af (>60 ml/min/1.73 sqM) Glucose (74-99) mg/dL Plasma Lactic Acid [place] (0.7-2.0) mmol/L Calcium (8.4-10.2) mg/dL Magnesium (1.6-2.3) mg/dL Total Bilirubin (0.2-1.3) mg/dL AST (14-36) U/L ALT (9-52) U/L Alkaline Phosphatase (38-126) U/L Total Creatine Kinase (30-135) U/L CK-MB (CK-2) (0.0-2.4) ng/mL CK-MB (CK-2) Rel Index Troponin I (0.000-0.034) ng/mL NT-Pro-B Natriuret Pep 1990 pg/mL Total Protein (6.3-8.2) g/dL Albumin (3.5-5.0) g/dL Urine Color Light Yellow Urine Appearance Cloudy H (Clear) Urine pH 6.5 (5.0-8.0) Ur Specific [place] 1.010 (1.001-1.035) Urine Protein 3+ H (Negative) Urine Glucose (UA) 4+ H (Negative) Urine Ketones Negative (Negative) Urine Blood Small H (Negative) Urine Nitrate Negative (Negative) Urine Bilirubin Negative (Negative) Urine Urobilinogen <2.0 (<2.0) mg/dL Ur Leukocyte Esterase Trace H (Negative) Urine RBC 18 H (0-5) /hpf Urine WBC 15 H (0-5) /hpf Ur Squamous Epith Cells 1 (0-4) /hpf Hyaline Casts 4 H (0-2) /lpf 07/13/16 07/13/16 Range/Units 08:39 09:05 WBC (3.8-10.6) k/uL RBC (3.80-5.40) m/uL Hgb (11.4-16.0) gm/dL Hct (34.0-46.0) % MCV (80.0-100.0) fL MCH (25.0-35.0) pg MCHC (31.0-37.0) g/dL RDW (11.5-15.5) % Plt Count (150-450) k/uL Neutrophils % % Lymphocytes % % Monocytes % % Eosinophils % % Basophils % % Neutrophils # (1.3-7.7) k/uL Lymphocytes # (1.0-4.8) k/uL Monocytes # (0-1.0) k/uL Eosinophils # (0-0.7) k/uL Basophils # (0-0.2) k/uL Hypochromasia Poikilocytosis Anisocytosis Microcytosis PT (9.0-12.0) sec INR (<1.1) APTT (22.0-30.0) sec D-Dimer (<0.60) mg/L FEU Sample Site LEFT RADIAL ABG pH 7.22 L (7.35-7.45) ABG pCO2 57 H (35-45) mmHg ABG pO2 352 H (83-108) mmHg ABG HCO3 22 (21-25) mmol/L ABG Total CO2 24 (19-24) mmol/L ABG O2 Saturation 100.0 H (94-97) % ABG Base Excess -4.3 mmol/L FiO2 100 % Sodium (137-145) mmol/L Potassium (3.5-5.1) mmol/L Chloride (98-107) mmol/L Carbon Dioxide (22-30) mmol/L Anion Gap mmol/L BUN (7-17) mg/dL Creatinine (0.52-1.04) mg/dL Est GFR (MDRD) Af Amer (>60 ml/min/1.73 sqM) Est GFR (MDRD) Non-Af (>60 ml/min/1.73 sqM) Glucose (74-99) mg/dL Plasma Lactic Acid [place] 4.3 H* (0.7-2.0) mmol/L Calcium (8.4-10.2) mg/dL Magnesium (1.6-2.3) mg/dL Total Bilirubin (0.2-1.3) mg/dL AST (14-36) U/L ALT (9-52) U/L Alkaline Phosphatase (38-126) U/L Total Creatine Kinase (30-135) U/L CK-MB (CK-2) (0.0-2.4) ng/mL CK-MB (CK-2) Rel Index Troponin I (0.000-0.034) ng/mL NT-Pro-B Natriuret Pep pg/mL Total Protein (6.3-8.2) g/dL Albumin (3.5-5.0) g/dL Urine Color Urine Appearance (Clear) Urine pH (5.0-8.0) Ur Specific [place] (1.001-1.035) Urine Protein (Negative) Urine Glucose (UA) (Negative) Urine Ketones (Negative) Urine Blood (Negative) Urine Nitrate (Negative) Urine Bilirubin (Negative) Urine Urobilinogen (<2.0) mg/dL Ur Leukocyte Esterase (Negative) Urine RBC (0-5) /hpf Urine WBC (0-5) /hpf Ur Squamous Epith Cells (0-4) /hpf Hyaline Casts (0-2) /lpf - EKG Data -: EKG Interpreted by [place] EKG shows normal: sinus rhythm (Sinus rhythm first-degree AV block rate was 100 OR interval interval 234 QRS duration 80 daily since QTC of 344/[address].) - Radiology Data Radiology results: report reviewed (I did review the x-ray report suspect CHF exacerbation underlying infiltrate is difficult to exclude small bilateral pleural effusions noted), image reviewed Critical Care Time Critical Care Time: Yes Critical Care Time: 53 minutes which includes the initial monitoring of the EMS report and discussed with paramedics evaluation of the patient with history and physical exam lab and x-ray orders. Reevaluation of response to therapy. Multiple re- evaluations multiple discussions with the patient's family. Discussion with the admitting physicians and annual campaign manager. Evaluation of old charting and labs. Admission orders and documentation the above. This does not include the intubation time. Disposition Clinical Impression: Acute respiratory failure, Congestive heart failure (CHF), Pneumonia, Sepsis Disposition: ADMITTED IP TO THIS HOSP Condition: Critical
[2016-07-13 10:00] LABS: ABG PCO2 57 mmHg (35-45); ABG PH 7.22 (7.35-7.45); ABG PO2 352 mmHg (83-108)
[2016-07-13 10:01] LABS: ABG Base Excess -4.3 mmol/L; ABG HCO3 22 mmol/L (21-25); ABG TCO2 24 mmol/L (19-24)
[2016-07-13] MEDS ORDERED: NALOXONE 0.4 MG/ML 1 ML VIAL IV PRN (10:48)
[2016-07-13] MEDS: LORazepam 2 MG/ML SYRINGE IV STA ×2 (11:12→15:40)
[2016-07-13 11:44] LABS: Hemoglobin A1C 8.6 % (4.2-6.1)
[2016-07-13] MEDS: NITROGLYCERIN OINT 1 INCH/GM PACKET TOPICAL SCH ×2 (12:00→17:38)
[2016-07-13] MEDS ORDERED: INSULIN LISPRO (humaLOG) 300 UNIT/3 ML VIAL SQ SCH (12:30)
[2016-07-13 12:50] LABS: Glucose,Whole Blood 435 mg/dL (75-99)
[2016-07-13] MEDS: IPRATROPIUM-ALBUTEROL 3 ML NEB INHALATION SCH ×4 (13:16→23:16)
--- NOTE | 2016-07-13 13:19 | P.CNPUL ---
History of Present Illness Consult date: 07/13/16 Requesting physician: Joy Ferrer Reason for consult: abnormal CXR/CT, other (Ventilator/critical care management) Chief complaint: Acute shortness of breath History of present illness: This is a 66-year-old female patient who follows with Dr. Maddsion Hermosillo as her primary care physician. She has a past medical history of diastolic congestive heart failure with preserved left ventricular systolic function with estimated ejection fraction 55-60%, recent vaginal bleeding secondary to uterine polyp status post D&C, chronic kidney disease stage III, diabetes moist type II, coronary artery disease with stent placements 5, hypertension, hyperlipidemia, pulmonary hypertension, history of femoral pseudoaneurysm, CVA, morbid obesity, chronic obstructive pulmonary disease with a significant smoking history however quit in May 2015, fibromyalgia, gastric cancer. She was recently discharged from here on 07/04/2016 after an acute exacerbation of her chronic diastolic congestive heart failure. She also had issues with vaginal bleeding at that time. The patient is needing to stay on her Plavix secondary to her stent placements. According to the patient's family she had been doing fairly well at home until this morning. She woke up with significant shortness of breath cough and congestion. EMS was called and she was given Solu-Medrol and updraft treatment in route. Upon arrival to the emergency room she became continue with severe respiratory distress requiring intubation and mechanical ventilatory support. She is seen in consultation in the ER. Her chest x-ray does reveal evidence of fluid volume overload/ congestive heart failure. Difficult to rule out any underlying airspace disease and possible healthcare acquired pneumonia/sepsis as she was recently discharged. Her current vent settings are assist-control at a rate of 16, tidal volume 500, FiO2 50% and a PEEP of 5. Initial blood class is on 100% FiO2 revealed a pO2 of 352, pCO2 57, pH 7.22. Initial white count 22.7, lactic acid 4.3, proBNP 1990, troponin 0.013, d-dimer 0.91, creatinine 1.37. Review of Systems ROS unobtainable: due to endotracheal tube Past Medical History Past Medical History: Asthma, Cancer, Heart Failure, COPD, CVA/TIA, Diabetes Mellitus, Eye Disorder, Fibromyalgia, GI Bleed, Hyperlipidemia, Hypertension, Myocardial Infarction (MN), Osteoarthritis (OA), Pneumonia Additional Past Medical History / Comment(s): Pt recently admitted on 06/20/16 with acute blood loss anemia, possible uterine lesion/cancer (pt has hx of uterine cancer tx with radiation), cystitis and vaginal bleeding. 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 Last Myocardial Infarction Date:: 06/12/15 History of Any Multi-Drug Resistant Organisms: None Reported Past Surgical History: Cholecystectomy, Heart Catheterization, Heart Catheterization With Stent Additional Past Surgical History / Comment(s): 06/12/15 Cardiac cath, 06/15/15 PTCA with stent mid L main, D&C X2, YRS AGO HAD A DEVICE IN FOR RADIATION TX FOR UTERINE CA THAT WAS SINCE REMOVED.EGD/COLONOSCOPY.02/18/16 heart cath 3 stents to rca Past Anesthesia/Blood Transfusion Reactions: Motion Sickness Additional Past Anesthesia/Blood Transfusion Reaction / Comment(s): CLAUSTROPHOBIA. Pt has had blood transfusion in past-no reaction to blood Date of Last Stent Placement:: 02/18/16 Past Psychological History: Anxiety, Depression Additional Psychological History / Comment(s): Pt resides with her spouse. She is basically wheel chair bound most of the time for the past several yrs. She at times ambulates with assistance or pushes her wheelchair. She feeds herself. She has a supportive family. She has a sister that helps with her bathing and her олег and spouse will help with her medication. 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 Mother Family Medical History: CVA/TIA Additional Family Medical History / Comment(s): HEART PROBLEMS, STARTED DRINKING AFTER OF HER , she of a ruptured liver at age 58 yrs. Medications and Allergies Home Medications Medication Instructions Recorded Confirmed Type Clopidogrel [Plavix] 75 mg PO HS 06/12/15 07/13/16 History Insulin Aspart [NovoLOG] 22 unit SQ AC-TID 12/10/15 07/13/16 History Insulin Glargine [Lantus] 60 unit SQ HS 01/15/16 07/13/16 History Diphenox-Atrop 2.5-0.025 mg 2 tab PO QID PRN 01/27/16 07/13/16 History [Lomotil] Albuterol Sulfate [Proventil Hfa] 1 - 2 puff INHALATION RT-Q6H PRN 02/15/16 History Insulin Glargine [Lantus] 10 unit SQ AC-BRKFST 02/15/16 07/13/16 History Carvedilol [Coreg] 12.5 mg PO BID 03/23/16 07/13/16 History Dicyclomine [Bentyl] 10 mg PO TID 06/16/16 07/13/16 History Furosemide [Lasix] 40 mg PO DAILY 07/13/16 07/13/16 History amLODIPine BESYLATE [Norvasc] 5 mg PO DAILY 07/13/16 07/13/16 History Allergies Allergy/AdvReac Type Severity Reaction Status Date / Time hydralazine Allergy Mild Anaphylaxis Verified 07/13/16 08:24 codeine Allergy Nausea/ Verified 07/13/16 08:24 hard to wake up hydrocodone Allergy Unknown Verified 07/13/16 08:24 lisinopril Allergy Rapid Verified 07/13/16 08:24 Heart Rate Physical Exam Vitals: Vital Signs Pulse Resp BP Pulse Ox 07/13/16 12:48 63 18 160/72 98 07/13/16 11:12 68 20 161/72 98 GENERAL EXAM: Morbidly obese. Sedated, intubated. HEAD: Normocephalic. EYES: Normal reaction of pupils, equal size. NOSE: Evidence of epistaxis. Nasal Clamp in place. THROAT: Oral endotracheal and gastric tube secured in place. NECK: No masses, no JVD. CHEST: No chest wall deformity. LUNGS: Equal air entry with crackles in the posterior bases. Diminished. CVS: S1 and S2 normal with no audible murmurs, regular rhythm. ABDOMEN: Obese, soft. Extremities: There is trace peripheral edema. No clubbing, no cyanosis. Peripheral pulses are intact. Results - Laboratory Findings CBC and BMP: 07/13/16 08:39 07/13/16 08:39 ABG ABG pH 7.22 (7.35-7.45) L 07/13/16 09:05 ABG pCO2 57 mmHg (35-45) H 07/13/16 09:05 ABG pO2 352 mmHg (83-108) H 07/13/16 09:05 ABG O2 Saturation 100.0 % (94-97) H 07/13/16 09:05 PT/INR, D-dimer PT 10.6 sec (9.0-12.0) 07/13/16 08:39 INR 1.0 (<1.1) 07/13/16 08:39 D-Dimer 0.91 mg/L FEU (<0.60) H 07/13/16 08:39 Abnormal lab findings: Abnormal Labs 07/13/16 12:40 POC Glucose (mg/dL) 435 H - Diagnostic Findings Chest x-ray: image reviewed (Congestive heart failure, fluid volume overload) Assessment and Plan Plan: Impression: #1 Acute hypoxic and hypercapnic respiratory failure, multifactorial in a patient with acute exacerbation of diastolic congestive heart failure, suspected healthcare acquired pneumonia, obesity/hypoventilation syndrome, acute exacerbation of chronic obstructive pulmonary disease. #2 Acute exacerbation of diastolic congestive heart failure. Preserved left ventricular systolic function with estimated ejection fraction 55-60% on echo 06/30/2016. #3 Lactic acidosis and leukocytosis with possible sepsis . #4 Acute exacerbation chronic obstructive pulmonary disease. #5 Morbid obesity with suspected obesity/hypoventilation syndrome. #6 Recent discharge for acute exacerbation diastolic congestive heart failure. #7 Recent history of vaginal bleeding requiring dilatation and curettage. History of uterine cancer status post radiation. #8 History of coronary artery disease with previous myocardial infarction status post stent placements 5. Most recently in January 2016 at which time she received stenting x 3 to the proximal, mid and distal RCA. Maintained on Plavix. 9 History of CVA/TIA 04/15/2015 with profound weakness on the right side. #10 Diabetes fallon, type II. #11 Hypertension. #12 Hyperlipidemia. #13 Acute on chronic renal failure. Current creatinine 1.37. #14 Acute on chronic anemia. Current hemoglobin 10.1. Plan: The patient was seen and evaluated by Dr. Caceres. Her chest x-ray, labs and ABGs were reviewed. She remains sedated with propofol currently at 40 mcg/kg/ m. We'll continue with her current vent settings. She's been initiated on bronchodilators every 4 hours. She has been initiated on antibiotics in the form of Zosyn. We will also diurese the patient with 40 mg of Lasix IV push every 8 hours. We'll hold off on anticoagulants for now secondary to the epistaxis, recent vaginal bleeding, anemia. We'll apply sequential compression devices. She is on Protonix for GI prophylaxis. We'll repeat her lactic acid. She'll be transferred to the intensive care unit once a bed becomes available. We'll repeat her chest x-ray, ABGs and labs in a.m. We'll continue to follow and make further recommendations based on her clinical status. Time with Patient: Greater than 30
[2016-07-13] MEDS ORDERED: FUROSEMIDE 10 MG/ML 4 ML VIAL IV SCH (16:00)
[2016-07-13 17:07] LABS: Glucose,Whole Blood 506 mg/dL (75-99)
[2016-07-13] MEDS ORDERED: INSULIN REGULAR BOLUS (FROM DRIP BAG) IV PRN ×2 (17:19→17:47)
[2016-07-13] MEDS: PIPERACILLIN-TAZOBACTAM 3.375 GM in DEXTROSE/WATER 1 50ML.BAG IVPB SCH (17:47)
[2016-07-13] MEDS: INSULIN REGULAR 100 UNIT in SODIUM CHLORIDE 0.9% 100 ML IV SCH (17:56)
[2016-07-13] MEDS: ASPIRIN 81 MG CHEW PO SCH (18:59)
[2016-07-13] MEDS: amLODIPine 5 MG TAB PO SCH (19:00)
[2016-07-13 19:04] LABS: Glucose,Whole Blood 517 mg/dL (75-99)
[2016-07-13 20:18] LABS: Glucose,Whole Blood 483 mg/dL (75-99)
[2016-07-13 20:59] LABS: Glucose,Whole Blood 417 mg/dL (75-99)
[2016-07-13] MEDS: PROPOFOL 500 MG in EMPTY BAG 1 BAG IV SCH ×2 (21:11→23:16)
--- NOTE | 2016-07-13 21:49 | HP ---
DATE OF ADMISSION: 07/13/2016 PRESENTING COMPLAINT: Shortness of breath. History of presenting complaint: This is a patient well known to me from multiple admissions. Patient's chronic stable medical conditions include gastric ( ) with Argon plasma coagulation, chronic congestive heart failure from diastolic dysfunction, ejection fraction 55%, coronary artery disease, essential hypertension, right-sided weakness from old stroke, diabetes mellitus type 2, obesity, hyperlipidemia, and fibromyalgia, osteoarthritis, chronic urinary stress incontinence. Patient also with underlying chronic obstructive pulmonary disease. Patient presented today with worsening short of breath, was found to be in acute respiratory failure. Had to be intubated in the ER and transferred to the ICU. Patient currently is not here. Review of systems could not be done. Patient intubated. Past medical history of GI bleed, with gastric ( ) ectasia with argon plasma coagulation, congestive heart failure from diastolic dysfunction, essential hypertension, right-sided weakness from old stroke especially in the arm, diabetes mellitus type 2, obesity; coronary artery disease with stent to the LAD and right coronary artery in January 2016, hyperlipidemia, COPD, fibromyalgia, osteoarthritis, chronic urinary stress incontinence, depression, right ( ) aneurysm, thrombosed, uterine cancer, urinary incontinence. PAST SURGICAL HISTORY: Cardiac cath with stent, uterine cancer. SOCIAL HISTORY: . Pretty much wheelchair bound. Able to feed herself. The patient smoked for close to 40 years, up to 4 packs a day; stopped in May 2015. FAMILY HISTORY: Cancer and pancreatitis. ALLERGIES TO ( ), CODEINE, HYDROCODONE AND LISINOPRIL. HOME MEDICATIONS: 1. Norvasc 5 mg a day. 2. Protonix 40 mg a day. 3. ( ). 4. Lantus 10 units at breakfast., 16 at supper. 5. NovoLog 22 units t.i.d. 6. Lasix 40 mg a day. 7. Lomotil 2 tablets p.o. q.i.d. p.r.n. 8. Bentyl 10 mg p.o. t.i.d. 9. Plavix 75 mg q.h.s. 10. Coreg 12.5 b.i.d. 11. Lipitor 80 mg q.h.s. 12. Aspirin 81 mg a day. 13. Proventil 1 to 2 puffs q.6h p.r.n. On examination vital signs on presentation: Temperature 97.3, pulse 58, respirations 14, blood pressure 176/59, pulse ox 80% BiPAP. GENERAL APPEARANCE: Obese; BMI of 46.3. Intubated. EYES: Conjunctivae equal. HEENT: External appearance of nose and ears normal. Oral cavity endotracheal tube in place. NECK: JVD unable to assess. Mass not palpable. RESPIRATORY: Effort increased. Diminished breath sounds. CARDIOVASCULAR: First and second sounds normal. No edema. ABDOMEN: Soft, nontender. Liver and spleen not palpable. LYMPHATIC: No lymph nodes palpable in neck or axillae. PSYCHIATRY: Depressed. NEUROLOGICAL: Chronic weakness on the right arm. INVESTIGATIONS: White count 22.7, hemoglobin 10.1, blood gases showed pH of 7.22, pCO2 57, pO2 352,000, BUN 30, creatinine 1.37. Chest x-ray portable but near white out on the right side. ASSESSMENT: 1. Acute hypoxic respiratory failure. 2. Chronic diverticulosis. 3. 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 4. Possible acute on chronic congestive heart failure from diastolic dysfunction, ejection fraction 55%, from underlying coronary artery disease. 5. Essential hypertension. 6. Right arm weakness from old stroke. 7. Diabetes mellitus type 2, chronically on insulin. 8. Obesity, body mass index more than 35. 9. Coronary artery disease with stent to the LAD and right coronary artery in January 2015. 10. Hyperlipidemia. 11. Chronic obstructive pulmonary disease in an ex-smoker. 12. Fibromyalgia. 13. Primary osteoarthritis of multiple joints, bilateral. 14. Chronic urinary stress incontinence. 15. Depression not otherwise specified. 16. Acute on chronic congestive heart failure exacerbation from diastolic dysfunction, ejection fraction 55%. 17. Possible pneumonia. PLAN: Patient put on IV Zosyn. Insulin is running high, he will be put on insulin drip. Overall prognosis is guarded. ( ) for critical care.
[2016-07-13 22:19] LABS: Glucose,Whole Blood 402 mg/dL (75-99)
[2016-07-13 22:56] LABS: ABG HCO3 20 mmol/L (21-25); ABG PCO2 35 mmHg (35-45); ABG PH 7.38 (7.35-7.45); ABG PO2 122 mmHg (83-108); ABG TCO2 21 mmol/L (19-24)
[2016-07-13 22:57] LABS: ABG Base Excess -4.1 mmol/L
[2016-07-13] MEDS: NYSTATIN 100,000 UNIT/GM POWD 15 GM TOPICAL SCH (23:15)
[2016-07-13] MEDS: CARVEDILOL 12.5 MG TAB PO SCH (23:15)
[2016-07-13] MEDS: ATORVASTATIN 80 MG TAB PO SCH (23:15)
[2016-07-13] MEDS: FUROSEMIDE 250 MG in SODIUM CHLORIDE 0.9% 225 ML IVP SCH (23:15)
[2016-07-13 23:29] LABS: Glucose,Whole Blood 349 mg/dL (75-99)
[2016-07-14 00:22] LABS: Glucose,Whole Blood 327 mg/dL (75-99)
[2016-07-14] MEDS ORDERED: IV VANCOMYCIN PER PHARMACY 1 EACH MISC MISCELLANE PRN (00:50)
[2016-07-14] MEDS ORDERED: VANCOMYCIN 1,000 MG in SODIUM CHLORIDE 0.9% 250 ML IVPB STA (00:50)
[2016-07-14] MEDS: INSULIN REGULAR 100 UNIT in SODIUM CHLORIDE 0.9% 100 ML IV SCH ×2 (00:54→20:14)
[2016-07-14] MEDS: PROPOFOL 500 MG in EMPTY BAG 1 BAG IV SCH ×5 (01:02→10:16)
[2016-07-14] MEDS: PIPERACILLIN-TAZOBACTAM 3.375 GM in DEXTROSE/WATER 1 50ML.BAG IVPB SCH ×4 (01:02→23:29)
[2016-07-14] MEDS: SODIUM CHLORIDE 0.9% 1,000 ML IV SCH ×2 (01:08→16:50)
[2016-07-14] MEDS: NITROGLYCERIN OINT 1 INCH/GM PACKET TOPICAL SCH ×5 (01:08→23:29)
[2016-07-14 01:18] LABS: Glucose,Whole Blood 298 mg/dL (75-99)
[2016-07-14] MEDS ORDERED: VANCOMYCIN 1,750 MG in SODIUM CHLORIDE 0.9% 250 ML IVPB SCH (02:00)
[2016-07-14 02:08] LABS: Glucose,Whole Blood 284 mg/dL (75-99)
[2016-07-14] MEDS: IPRATROPIUM-ALBUTEROL 3 ML NEB INHALATION SCH ×6 (02:32→23:23)
[2016-07-14 03:04] LABS: Glucose,Whole Blood 251 mg/dL (75-99)
[2016-07-14 04:20] LABS: Glucose,Whole Blood 210 mg/dL (75-99)
[2016-07-14 05:01] LABS: Anisocytosis Slight; Basophils % (A) 0 %; CH 23.3; Eosinophils % (A) 0 %; HCT 24.3 % (34.0-46.0); HDW 3.84; HGB 7.6 gm/dL (11.4-16.0); Hypochromasia Marked; Luc # (Auto) 0.15; Luc % (Auto) 1; Lymphocytes # (A) 0.8 k/uL (1.0-4.8); Lymphocytes % (A) 7 %; MCH 23.6 pg (25.0-35.0); MCHC 31.4 g/dL (31.0-37.0); MCV 75.3 fL (80.0-100.0); Mean Platelet Volume 6.8; Microcytosis Slight; Monocytes # (A) 0.7 k/uL (0-1.0); Monocytes % (A) 5 %; Neutrophils # (A) 10.7 k/uL (1.3-7.7); Neutrophils % (A) 87 %; Poikilocytosis Slight; RBC 3.22 m/uL (3.80-5.40); RDW 16.5 % (11.5-15.5); WBC 12.3 k/uL (3.8-10.6); WBC (Perox) 12.91
[2016-07-14 05:11] LABS: Glucose,Whole Blood 200 mg/dL (75-99)
[2016-07-14 05:11] LABS: Calcium 8.7 mg/dL (8.4-10.2); Phosphorous 4.4 mg/dL (2.5-4.5)
[2016-07-14 06:08] LABS: Glucose,Whole Blood 184 mg/dL (75-99)
[2016-07-14 07:08] LABS: Glucose,Whole Blood 159 mg/dL (75-99)
--- NOTE | 2016-07-14 07:15 | XR ---
EXAMINATION TYPE: XR chest 1V portable DATE OF EXAM: 07/14/2016 6:36 AM Comparison: 07/13/[address] 06/16/2016. Clinical History: 66-year-old female follow-up CHF Findings: ET tube is satisfactory. NG tube courses below the diaphragm. Heart remains mildly enlarged. Improved appearance to the pulmonary vasculature with residual hazy ri ght basilar density. Continued opacity obscuring the left heart margin. Impression: Interval improvement in CHF. There is residual hazy density at the right base, probably residual pulm onary edema. Left heart margin remains obscured probably in part due to a large epicardial fat pad. U nderlying small effusion difficult to exclude.
[2016-07-14] MEDS: NYSTATIN 100,000 UNIT/GM POWD 15 GM TOPICAL SCH ×2 (08:26→21:02)
[2016-07-14] MEDS: PANTOPRAZOLE 40 MG/10 ML VIAL IV SCH (08:26)
[2016-07-14] MEDS: CARVEDILOL 12.5 MG TAB PO SCH ×2 (08:26→21:02)
[2016-07-14] MEDS: ASPIRIN 81 MG CHEW PO SCH (08:26)
[2016-07-14] MEDS: amLODIPine 5 MG TAB PO SCH (08:26)
[2016-07-14 08:32] LABS: Glucose,Whole Blood 147 mg/dL (75-99)
[2016-07-14 09:10] LABS: Glucose,Whole Blood 146 mg/dL (75-99)
[2016-07-14] MEDS ORDERED: CHLORHEXIDINE GLUCONATE 15 ML CUP MUCOUS MEM SCH (09:30)
[2016-07-14 10:12] LABS: Glucose,Whole Blood 145 mg/dL (75-99)
[2016-07-14 10:26] LABS: ABG Base Excess -1.1 mmol/L; ABG HCO3 23 mmol/L (21-25); ABG PCO2 39 mmHg (35-45); ABG PH 7.39 (7.35-7.45); ABG PO2 133 mmHg (83-108); ABG TCO2 24 mmol/L (19-24)
[2016-07-14 11:09] LABS: Glucose,Whole Blood 191 mg/dL (75-99)
[2016-07-14 12:05] LABS: ABG Base Excess -1.1 mmol/L; ABG HCO3 23 mmol/L (21-25); ABG PCO2 35 mmHg (35-45); ABG PH 7.43 (7.35-7.45); ABG PO2 125 mmHg (83-108); ABG TCO2 24 mmol/L (19-24)
--- NOTE | 2016-07-14 12:10 | P.PN ---
Subjective Principal diagnosis: Acute hypoxic respiratory failure secondary to diastolic congestive heart failure This is a 66-year-old female patient who follows with Dr. Maddison Hermosillo as her primary care physician. She has a past medical history of diastolic congestive heart failure with preserved left ventricular systolic function with estimated ejection fraction 55-60%, recent vaginal bleeding secondary to uterine polyp status post D&C, chronic kidney disease stage III, diabetes moist type II, coronary artery disease with stent placements 5, hypertension, hyperlipidemia, pulmonary hypertension, history of femoral pseudoaneurysm, CVA, morbid obesity, chronic obstructive pulmonary disease with a significant smoking history however quit in May 2015, fibromyalgia, gastric cancer. She was recently discharged from here on 07/04/2016 after an acute exacerbation of her chronic diastolic congestive heart failure. She also had issues with vaginal bleeding at that time. The patient is needing to stay on her Plavix secondary to her stent placements. According to the patient's family she had been doing fairly well at home until this morning. She woke up with significant shortness of breath cough and congestion. EMS was called and she was given Solu-Medrol and updraft treatment in route. Upon arrival to the emergency room she became continue with severe respiratory distress requiring intubation and mechanical ventilatory support. She is seen in consultation in the ER. Her chest x-ray does reveal evidence of fluid volume overload/ congestive heart failure. Difficult to rule out any underlying airspace disease and possible healthcare acquired pneumonia/sepsis as she was recently discharged. Her current vent settings are assist-control at a rate of 16, tidal volume 500, FiO2 50% and a PEEP of 5. Initial blood class is on 100% FiO2 revealed a pO2 of 352, pCO2 57, pH 7.22. Initial white count 22.7, lactic acid 4.3, proBNP 1990, troponin 0.013, d-dimer 0.91, creatinine 1.37. Reevaluated today on 07/14/2016, patient remains on mechanical ventilations, however her ABG is significantly improved with a pO2 of 133 pCO2 of 39 pH of 7.39 patient is on 35% FiO2 her chest x-ray was reviewed and it seems significantly improved patient responded well to Lasix drip. Her hemoglobin however is low at 7.6, it was 10.1 on admission yesterday. We will do further investigation into the hemoglobin drop, and we'll recheck it. If it is below 7 , then the patient will need to be transfused. Metabolic profile was reviewed, BUN is up to 44 creatinine is 1.80. I believe the patient must have sustained acute kidney injury, most likely a cardiorenal syndrome type of picture. Preliminary report on the blood culture is positive for gram-positive cocci in pairs, hence the patient was given empirically vancomycin and Zosyn. Final report on the blood culture is pending. Objective - Vital Signs Vital signs: Vital Signs Temp 98.9 F 07/14/16 08:00 Pulse 81 07/14/16 11:00 Resp 16 07/14/16 07:54 BP 159/65 07/14/16 11:00 Pulse Ox 98 07/14/16 11:00 Intake & Output 07/13/16 07/14/16 07/14/16 18:59 06:59 18:59 Intake Total 202 1380.504 399.483 Output Total 269 542 1470 Balance -273 747.504 -1380.517 Weight 100.2 kg 100.2 kg Intake: IV 575.0 325.0 Piperacillin-Tazobactam 3 50.0 25.0 .375 gm In Dextrose/Water 1 50ml.bag @ 12.5 mls/hr IVPB Q8HR [facility] Rx#: [id number] Sodium Chloride 0.9% 1, 525 300 000 ml @ 75 mls/hr IV . [id number] [facility] Rx#:[id number] Intake, IV Titration 202 805.504 74.483 Amount Insulin Regular 100 unit 153.504 23.150 In Sodium Chloride 0.9% 100 ml @ Per Protocol IV .Q0M [facility] Rx#:[id number] Piperacillin-Tazobactam 3 50 50 .375 gm In Dextrose/Water 1 50ml.bag @ 12.5 mls/hr IVPB Q8HR [facility] Rx#: [id number] Propofol 500 mg In Empty 50 Bag 1 bag @ Titrate IV . Q0M [facility] Rx#:[id number] Propofol 500 mg In Empty 27 277 51.333 Bag 1 bag @ Titrate IV . Q0M [facility] Rx#:[id number] Sodium Chloride 0.9% 1, 75 75 000 ml @ 75 mls/hr IV . [id number] [facility] Rx#:[id number] Vancomycin 1,750 mg In 250 Sodium Chloride 0.9% 250 ml @ 125 mls/hr IVPB Q24H [facility] Rx#:[id number] Output: Gastric Drainage 850 Urine 475 633 930 Uretheral ([place]) 475 Other: Voiding Method Indwelling Catheter Indwelling Catheter Indwelling Catheter - Exam GENERAL EXAM: Morbidly obese. Sedated, intubated. HEAD: Normocephalic. EYES: Normal reaction of pupils, equal size. NOSE: Evidence of epistaxis. Nasal Clamp in place. THROAT: Oral endotracheal and gastric tube secured in place. NECK: No masses, no JVD. CHEST: No chest wall deformity. LUNGS: Equal air entry with crackles in the posterior bases. Diminished. CVS: S1 and S2 normal with no audible murmurs, regular rhythm. ABDOMEN: Obese, soft. Extremities: There is trace peripheral edema. No clubbing, no cyanosis. Peripheral pulses are intact. - Labs CBC & Chem 7: 07/14/16 04:36 07/14/16 04:36 Labs: Abnormal Lab Results - Last 24 Hours (Table) 07/13/16 07/13/16 07/13/16 Range/Units 12:40 17:05 19:02 WBC (3.8-10.6) k/uL RBC (3.80-5.40) m/uL Hgb (11.4-16.0) gm/dL Hct (34.0-46.0) % MCV (80.0-100.0) fL MCH (25.0-35.0) pg RDW (11.5-15.5) % Neutrophils # (1.3-7.7) k/uL Lymphocytes # (1.0-4.8) k/uL ABG pO2 (83-108) mmHg ABG HCO3 (21-25) mmol/L ABG O2 Saturation (94-97) % Chloride (98-107) mmol/L Carbon Dioxide (22-30) mmol/L BUN (7-17) mg/dL Creatinine (0.52-1.04) mg/dL Glucose (74-99) mg/dL POC Glucose (mg/dL) 435 H 506 H 517 H (75-99) mg/dL 07/13/16 07/13/16 07/13/16 Range/Units 20:15 20:58 21:57 WBC (3.8-10.6) k/uL RBC (3.80-5.40) m/uL Hgb (11.4-16.0) gm/dL Hct (34.0-46.0) % MCV (80.0-100.0) fL MCH (25.0-35.0) pg RDW (11.5-15.5) % Neutrophils # (1.3-7.7) k/uL Lymphocytes # (1.0-4.8) k/uL ABG pO2 122 H (83-108) mmHg ABG HCO3 20 L (21-25) mmol/L ABG O2 Saturation 99.0 H (94-97) % Chloride (98-107) mmol/L Carbon Dioxide (22-30) mmol/L BUN (7-17) mg/dL Creatinine (0.52-1.04) mg/dL Glucose (74-99) mg/dL POC Glucose (mg/dL) 483 H 417 H (75-99) mg/dL 07/13/16 07/13/16 07/14/16 Range/Units 22:17 23:27 00:12 WBC (3.8-10.6) k/uL RBC (3.80-5.40) m/uL Hgb (11.4-16.0) gm/dL Hct (34.0-46.0) % MCV (80.0-100.0) fL MCH (25.0-35.0) pg RDW (11.5-15.5) % Neutrophils # (1.3-7.7) k/uL Lymphocytes # (1.0-4.8) k/uL ABG pO2 (83-108) mmHg ABG HCO3 (21-25) mmol/L ABG O2 Saturation (94-97) % Chloride (98-107) mmol/L Carbon Dioxide (22-30) mmol/L BUN (7-17) mg/dL Creatinine (0.52-1.04) mg/dL Glucose (74-99) mg/dL POC Glucose (mg/dL) 402 H 349 H 327 H (75-99) mg/dL 07/14/16 07/14/16 07/14/16 Range/Units 01:16 02:06 03:01 WBC (3.8-10.6) k/uL RBC (3.80-5.40) m/uL Hgb (11.4-16.0) gm/dL Hct (34.0-46.0) % MCV (80.0-100.0) fL MCH (25.0-35.0) pg RDW (11.5-15.5) % Neutrophils # (1.3-7.7) k/uL Lymphocytes # (1.0-4.8) k/uL ABG pO2 (83-108) mmHg ABG HCO3 (21-25) mmol/L ABG O2 Saturation (94-97) % Chloride (98-107) mmol/L Carbon Dioxide (22-30) mmol/L BUN (7-17) mg/dL Creatinine (0.52-1.04) mg/dL Glucose (74-99) mg/dL POC Glucose (mg/dL) 298 H 284 H 251 H (75-99) mg/dL 07/14/16 07/14/16 07/14/16 Range/Units 04:18 04:36 04:36 WBC 12.3 H (3.8-10.6) k/uL RBC 3.22 L (3.80-5.40) m/uL Hgb 7.6 L D (11.4-16.0) gm/dL Hct 24.3 L (34.0-46.0) % MCV 75.3 L (80.0-100.0) fL MCH 23.6 L (25.0-35.0) pg RDW 16.5 H (11.5-15.5) % Neutrophils # 10.7 H (1.3-7.7) k/uL Lymphocytes # 0.8 L (1.0-4.8) k/uL ABG pO2 (83-108) mmHg ABG HCO3 (21-25) mmol/L ABG O2 Saturation (94-97) % Chloride 108 H (98-107) mmol/L Carbon Dioxide 21 L (22-30) mmol/L BUN 44 H (7-17) mg/dL Creatinine 1.80 H (0.52-1.04) mg/dL Glucose 198 H (74-99) mg/dL POC Glucose (mg/dL) 210 H (75-99) mg/dL 07/14/16 07/14/16 07/14/16 Range/Units 05:09 06:07 07:07 WBC (3.8-10.6) k/uL RBC (3.80-5.40) m/uL Hgb (11.4-16.0) gm/dL Hct (34.0-46.0) % MCV (80.0-100.0) fL MCH (25.0-35.0) pg RDW (11.5-15.5) % Neutrophils # (1.3-7.7) k/uL Lymphocytes # (1.0-4.8) k/uL ABG pO2 (83-108) mmHg ABG HCO3 (21-25) mmol/L ABG O2 Saturation (94-97) % Chloride (98-107) mmol/L Carbon Dioxide (22-30) mmol/L BUN (7-17) mg/dL Creatinine (0.52-1.04) mg/dL Glucose (74-99) mg/dL POC Glucose (mg/dL) 200 H 184 H 159 H (75-99) mg/dL 07/14/16 07/14/16 07/14/16 Range/Units 08:03 08:55 09:08 WBC (3.8-10.6) k/uL RBC (3.80-5.40) m/uL Hgb (11.4-16.0) gm/dL Hct (34.0-46.0) % MCV (80.0-100.0) fL MCH (25.0-35.0) pg RDW (11.5-15.5) % Neutrophils # (1.3-7.7) k/uL Lymphocytes # (1.0-4.8) k/uL ABG pO2 133 H (83-108) mmHg ABG HCO3 (21-25) mmol/L ABG O2 Saturation 99.0 H (94-97) % Chloride (98-107) mmol/L Carbon Dioxide (22-30) mmol/L BUN (7-17) mg/dL Creatinine (0.52-1.04) mg/dL Glucose (74-99) mg/dL POC Glucose (mg/dL) 147 H 146 H (75-99) mg/dL 07/14/16 07/14/16 Range/Units 10:08 11:04 WBC (3.8-10.6) k/uL RBC (3.80-5.40) m/uL Hgb (11.4-16.0) gm/dL Hct (34.0-46.0) % MCV (80.0-100.0) fL MCH (25.0-35.0) pg RDW (11.5-15.5) % Neutrophils # (1.3-7.7) k/uL Lymphocytes # (1.0-4.8) k/uL ABG pO2 (83-108) mmHg ABG HCO3 (21-25) mmol/L ABG O2 Saturation (94-97) % Chloride (98-107) mmol/L Carbon Dioxide (22-30) mmol/L BUN (7-17) mg/dL Creatinine (0.52-1.04) mg/dL Glucose (74-99) mg/dL POC Glucose (mg/dL) 145 H 191 H (75-99) mg/dL Assessment and Plan Plan: #1 Acute hypoxic and hypercapnic respiratory failure, multifactorial in a patient with acute exacerbation of diastolic congestive heart failure, suspected healthcare acquired pneumonia, obesity/hypoventilation syndrome, acute exacerbation of chronic obstructive pulmonary disease. #2 Acute exacerbation of diastolic congestive heart failure. Preserved left ventricular systolic function with estimated ejection fraction 55-60% on echo 06/30/2016. #3 Lactic acidosis and leukocytosis with possible sepsis . Patient had positive blood cultures, final report is pending, presently she is empirically on Zosyn and vancomycin #4 Acute exacerbation chronic obstructive pulmonary disease. #5 Morbid obesity with suspected obesity/hypoventilation syndrome. #6 Recent discharge for acute exacerbation diastolic congestive heart failure. #7 Recent history of vaginal bleeding requiring dilatation and curettage. History of uterine cancer status post radiation. #8 History of coronary artery disease with previous myocardial infarction status post stent placements 5. Most recently in January 2016 at which time she received stenting x 3 to the proximal, mid and distal RCA. Maintained on Plavix. 9 History of CVA/TIA 04/15/2015 with profound weakness on the right side. #10 Diabetes fallon, type II. #11 Hypertension. #12 Hyperlipidemia. #13 Acute on chronic renal failure. Current creatinine 1.37. #14 Acute on chronic anemia. Current hemoglobin 7.6, hence we'll monitor her hemoglobin, and have it rechecked. Recommendation: Patient will be given a weaning trial today, and if tolerated, I would proceed to extubating the patient. Considering her chest x-ray and her ABG, jeri feels strongly that the patient will do well off mechanical ventilation. We'll keep her in the ICU, discussed her condition with the family members at bedside. Critical care time is 40 minutes. Time with Patient: Greater than 30
[2016-07-14 13:29] LABS: Glucose,Whole Blood 230 mg/dL (75-99)
[2016-07-14 14:13] LABS: Glucose,Whole Blood 204 mg/dL (75-99)
[2016-07-14 14:31] LABS: Anisocytosis Slight; CH 23.7; CHCM 31.2; HCT 25.1 % (34.0-46.0); HDW 3.76; HGB 7.7 gm/dL (11.4-16.0); Hypochromasia Marked; MCH 23.4 pg (25.0-35.0); MCHC 30.6 g/dL (31.0-37.0); MCV 76.3 fL (80.0-100.0); Mean Platelet Volume 7.9; Microcytosis Slight; Poikilocytosis Slight; RBC 3.29 m/uL (3.80-5.40); RDW 17.2 % (11.5-15.5)
[2016-07-14 14:53] LABS: Potassium 3.7 mmol/L (3.5-5.1)
[2016-07-14 15:14] LABS: Glucose,Whole Blood 166 mg/dL (75-99)
[2016-07-14] MEDS ORDERED: Potassium Replacement Protocol 1 EACH MISC MISCELLANE PRN (15:15)
[2016-07-14 16:21] LABS: Glucose,Whole Blood 129 mg/dL (75-99)
[2016-07-14] MEDS: POTASSIUM CHLORIDE 10 MEQ, LIDOCAINE 2% INJ 10 MG in SODIUM CHLORIDE 0.9% 100 ML IV SCH ×2 (16:25→17:40)
[2016-07-14 17:11] LABS: Glucose,Whole Blood 139 mg/dL (75-99)
[2016-07-14 18:12] LABS: Glucose,Whole Blood 180 mg/dL (75-99)
[2016-07-14 19:02] LABS: Glucose,Whole Blood 181 mg/dL (75-99)
[2016-07-14 20:11] LABS: Glucose,Whole Blood 162 mg/dL (75-99)
[2016-07-14] MEDS: CLOPIDOGREL 75 MG TAB PO SCH (21:02)
[2016-07-14] MEDS: ATORVASTATIN 80 MG TAB PO SCH (21:02)
[2016-07-14 21:12] LABS: Glucose,Whole Blood 153 mg/dL (75-99)
[2016-07-14] MEDS: FUROSEMIDE 250 MG in SODIUM CHLORIDE 0.9% 225 ML IVP SCH (21:17)
[2016-07-14 22:14] LABS: Glucose,Whole Blood 149 mg/dL (75-99)
[2016-07-15 00:02] LABS: Glucose,Whole Blood 133 mg/dL (75-99)
[2016-07-15 00:58] LABS: Glucose,Whole Blood 175 mg/dL (75-99)
[2016-07-15 01:33] LABS: Glucose,Whole Blood 187 mg/dL (75-99)
[2016-07-15] MEDS ORDERED: POTASSIUM CHLORIDE ER 20 MEQ TAB.ER PO SCH ×2 (02:00→06:00)
[2016-07-15 02:08] LABS: Glucose,Whole Blood 188 mg/dL (75-99)
[2016-07-15] MEDS: SODIUM CHLORIDE 0.9% 1,000 ML IV SCH ×2 (03:06→15:34)
[2016-07-15 03:10] LABS: Glucose,Whole Blood 172 mg/dL (75-99)
[2016-07-15] MEDS: IPRATROPIUM-ALBUTEROL 3 ML NEB INHALATION SCH ×5 (03:50→20:45)
[2016-07-15 04:07] LABS: Glucose,Whole Blood 151 mg/dL (75-99)
[2016-07-15 04:48] LABS: Anisocytosis Slight; Basophils # (A) 0.1 k/uL (0-0.2); Basophils % (A) 1 %; CH 23.5; CHCM 31.7; Eosinophils # (A) 0.2 k/uL (0-0.7); Eosinophils % (A) 1 %; HCT 24.1 % (34.0-46.0); HDW 3.73; HGB 7.5 gm/dL (11.4-16.0); Hypochromasia Moderate; Luc # (Auto) 0.08; Luc % (Auto) 1; Lymphocytes # (A) 1.4 k/uL (1.0-4.8); Lymphocytes % (A) 13 %; MCH 23.1 pg (25.0-35.0); MCV 74.5 fL (80.0-100.0); Microcytosis Slight; Monocytes # (A) 0.7 k/uL (0-1.0); Monocytes % (A) 6 %; Neutrophils # (A) 8.3 k/uL (1.3-7.7); Neutrophils % (A) 78 %; Poikilocytosis Slight; RBC 3.24 m/uL (3.80-5.40); RDW 17.1 % (11.5-15.5); WBC 10.6 k/uL (3.8-10.6); WBC (Perox) 10.29
[2016-07-15 04:56] LABS: Calcium 8.7 mg/dL (8.4-10.2); Phosphorous 5.2 mg/dL (2.5-4.5); Potassium 3.9 mmol/L (3.5-5.1)
[2016-07-15] MEDS: NITROGLYCERIN OINT 1 INCH/GM PACKET TOPICAL SCH ×4 (05:39→23:36)
[2016-07-15] MEDS: VANCOMYCIN 1,500 MG in SODIUM CHLORIDE 0.9% 250 ML IVPB SCH (05:39)
[2016-07-15 05:56] LABS: Glucose,Whole Blood 147 mg/dL (75-99)
--- NOTE | 2016-07-15 07:17 | XR ---
EXAMINATION TYPE: XR chest 1V portable DATE OF EXAM: 07/15/2016 6:50 AM COMPARISON: 07/14/2016 HISTORY: SOB, Follow Up FINDINGS: Indwelling tubes and catheters have been removed. No change in bibasilar opacities. Stable appearance of the cardio-mediastinal structures at this time. Pleural effusion unchanged. IMPRESSION: 1. Stable portable chest. Clinical correlation and follow up until resolution is recommended.
--- NOTE | 2016-07-15 07:57 | PN ---
DATE OF SERVICE: 07/14/2016 PRESENTING COMPLAINT: Short of breath. INTERVAL HISTORY: This pleasant lady with multiple problems admitted with acute hypoxic respiratory failure was intubated. Patient was extubated earlier today and has got a slight cough. Two daughters at the bedside. Patient said at home she just went on to become short of breath. Review of systems done for constitutional, cardiovascular, GI, pulmonary; relevant findings as above. Current medications are reviewed that include IV Lasix, insulin, Zosyn, vancomycin On examination, temperature 99, pulse 80, respirations 22, blood pressure 161/56, pulse ox 96%. GENERAL APPEARANCE: Lying in bed, tired appearing. EYES: Pupils equal. Conjunctivae normal. NECK: JVD not raised. Mass not palpable. RESPIRATORY: Effort increased. LUNGS: Diminished breath sounds. CARDIOVASCULAR: First and second sounds normal. No edema. ABDOMEN: Soft, nontender. Liver and spleen not palpable. NEUROLOGICAL: Chronic weakness in the right arm. INVESTIGATIONS: White count 13, hemoglobin 7.7. Potassium 3.7. Blood cultures growing Alpha Hemolytic Streptococcus. Urine culture is growing gram-negative bacilli. Chest x-ray showing some improvement . ASSESSMENT: 1. Acute hypoxic respiratory failure, present on admission, from congestive heart failure. 2. Chronic diverticulosis. 3. 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 4. Possible acute on chronic congestive heart failure exacerbation from diastolic dysfunction, ejection fraction 55% from underlying coronary artery disease. 5. Essential hypertension. 6. Right arm weakness from old stroke. 7. Diabetes mellitus type 2, chronically on insulin. 8. Obesity, body mass index of more than 35. 9. Coronary artery disease with stent to LAD and RCA in January 2015. 10. Hyperlipidemia. 11. Chronic obstructive pulmonary disease in an ex-smoker. 12. Fibromyalgia. 13. Primary osteoarthritis of multiple joints, bilateral. 14. Chronic urinary stress incontinence. 15. Depression, not otherwise specified. 16. Possible pneumonia. PLAN: Care was discussed with the patient and daughters at the bedside. Overall prognosis is guarded. Continue current medication and treatment plan, supportive care, antibiotics. Will follow. Diet will be advanced as per critical care.
[2016-07-15] MEDS: amLODIPine 5 MG TAB PO SCH (08:48)
[2016-07-15] MEDS: CARVEDILOL 12.5 MG TAB PO SCH ×2 (08:48→21:22)
[2016-07-15] MEDS: PANTOPRAZOLE 40 MG/10 ML VIAL IV SCH (08:48)
[2016-07-15] MEDS: NYSTATIN 100,000 UNIT/GM POWD 15 GM TOPICAL SCH ×2 (08:48→21:22)
[2016-07-15] MEDS: ASPIRIN 81 MG CHEW PO SCH (08:48)
[2016-07-15] MEDS: PIPERACILLIN-TAZOBACTAM 3.375 GM in DEXTROSE/WATER 1 50ML.BAG IVPB SCH ×2 (08:52→15:38)
[2016-07-15 09:03] LABS: Glucose,Whole Blood 229 mg/dL (75-99)
[2016-07-15 10:19] LABS: Glucose,Whole Blood 225 mg/dL (75-99)
[2016-07-15 11:00] LABS: Glucose,Whole Blood 196 mg/dL (75-99)
[2016-07-15 12:29] LABS: Glucose,Whole Blood 154 mg/dL (75-99)
[2016-07-15] MEDS: FUROSEMIDE 10 MG/ML 4 ML VIAL IV SCH ×2 (12:30→23:35)
[2016-07-15 13:10] LABS: Glucose,Whole Blood 146 mg/dL (75-99)
[2016-07-15] MEDS: INSULIN REGULAR 100 UNIT in SODIUM CHLORIDE 0.9% 100 ML IV SCH ×2 (13:10→15:08)
--- NOTE | 2016-07-15 14:49 | P.PN ---
Subjective Principal diagnosis: Acute hypoxic respiratory failure secondary to diastolic congestive heart failure This is a 66-year-old female patient who follows with Dr. Maddison Hermosillo as her primary care physician. She has a past medical history of diastolic congestive heart failure with preserved left ventricular systolic function with estimated ejection fraction 55-60%, recent vaginal bleeding secondary to uterine polyp status post D&C, chronic kidney disease stage III, diabetes moist type II, coronary artery disease with stent placements 5, hypertension, hyperlipidemia, pulmonary hypertension, history of femoral pseudoaneurysm, CVA, morbid obesity, chronic obstructive pulmonary disease with a significant smoking history however quit in May 2015, fibromyalgia, gastric cancer. She was recently discharged from here on 07/04/2016 after an acute exacerbation of her chronic diastolic congestive heart failure. She also had issues with vaginal bleeding at that time. The patient is needing to stay on her Plavix secondary to her stent placements. According to the patient's family she had been doing fairly well at home until this morning. She woke up with significant shortness of breath cough and congestion. EMS was called and she was given Solu-Medrol and updraft treatment in route. Upon arrival to the emergency room she became continue with severe respiratory distress requiring intubation and mechanical ventilatory support. She is seen in consultation in the ER. Her chest x-ray does reveal evidence of fluid volume overload/ congestive heart failure. Difficult to rule out any underlying airspace disease and possible healthcare acquired pneumonia/sepsis as she was recently discharged. Her current vent settings are assist-control at a rate of 16, tidal volume 500, FiO2 50% and a PEEP of 5. Initial blood class is on 100% FiO2 revealed a pO2 of 352, pCO2 57, pH 7.22. Initial white count 22.7, lactic acid 4.3, proBNP 1990, troponin 0.013, d-dimer 0.91, creatinine 1.37. Reevaluated today on 07/14/2016, patient remains on mechanical ventilations, however her ABG is significantly improved with a pO2 of 133 pCO2 of 39 pH of 7.39 patient is on 35% FiO2 her chest x-ray was reviewed and it seems significantly improved patient responded well to Lasix drip. Her hemoglobin however is low at 7.6, it was 10.1 on admission yesterday. We will do further investigation into the hemoglobin drop, and we'll recheck it. If it is below 7 , then the patient will need to be transfused. Metabolic profile was reviewed, BUN is up to 44 creatinine is 1.80. I believe the patient must have sustained acute kidney injury, most likely a cardiorenal syndrome type of picture. Preliminary report on the blood culture is positive for gram-positive cocci in pairs, hence the patient was given empirically vancomycin and Zosyn. Final report on the blood culture is pending. Reevaluated today on 07/15/2016, patient was extubated yesterday, and she tolerated the extubation well so far. Chest x-ray continues to show significant improvement, small bilateral pleural effusions were noted. Patient is becoming relatively dehydrated, hence I stopped her IV Lasix drip, and I will switch her to IV push Lasix. Her labs were reviewed, hemoglobin is 7.5, her BUN is elevated at 45, and creatinine is 1.90. Her urine is positive for E. coli and yeast species, blood is positive for Streptococcus mitis/oralis which can cause infective endocarditis, ideal drug of choice would be a clindamycin, however I will go ahead and recommended infectious disease consultation. May have to consider echocardiogram on this patient and repeat blood cultures. Patient received Zosyn and vancomycin upon admission. Objective - Vital Signs Vital signs: Vital Signs Temp 98.1 F 07/15/16 12:00 Pulse 68 07/15/16 14:00 Resp 15 07/15/16 14:00 BP 125/37 07/15/16 14:00 Pulse Ox 94 L 07/15/16 11:00 Intake & Output 07/14/16 07/15/16 07/15/16 18:59 06:59 18:59 Intake Total 664.400 8329.144 1320.975 Output Total 3995 3575 1450 Balance -3221.517 -1933.856 -129.025 Weight 100.2 kg 100.5 kg 100.5 kg Intake: IV 662.5 1165.0 612.5 Piperacillin-Tazobactam 3 62.5 75.0 37.5 .375 gm In Dextrose/Water 1 50ml.bag @ 12.5 mls/hr IVPB Q8HR [facility] Rx#: [id number] Sodium Chloride 0.9% 1, 600 840 450 000 ml @ 75 mls/hr IV . [id number] [facility] Rx#:[id number] Vancomycin 1,500 mg In 250 125 Sodium Chloride 0.9% 250 ml @ 125 mls/hr IVPB Q48H [facility] Rx#:[id number] Intake, IV Titration 110.983 356.144 108.475 Amount Furosemide 250 mg In 220.333 Sodium Chloride 0.9% 225 ml @ 5 MG/HR 5 mls/hr IVP .Q24H [facility] Rx#:[id number] Insulin Regular 100 unit 59.650 35.811 33.475 In Sodium Chloride 0.9% 100 ml @ Per Protocol IV .Q0M [facility] Rx#:[id number] Potassium Chloride 10 meq 100 Lidocaine 2% Inj 10 mg In Sodium Chloride 0.9% 100 ml @ 100 mls/hr IV Q1HR [facility] Rx#:[id number] Propofol 500 mg In Empty 51.333 Bag 1 bag @ Titrate IV . Q0M [facility] Rx#:[id number] Sodium Chloride 0.9% 1, 75 000 ml @ 75 mls/hr IV . [id number] [facility] Rx#:[id number] Oral 120 600 Output: Gastric Drainage 850 Urine 3145 3575 1450 Other: Voiding Method Indwelling Catheter Indwelling Catheter Indwelling Catheter - Exam GENERAL EXAM: Morbidly obese. Off mechanical ventilation, on nasal cannula, in no distress. HEAD: Normocephalic. EYES: Normal reaction of pupils, equal size. NOSE: Unremarkable THROAT: Clear NECK: No masses, no JVD. CHEST: No chest wall deformity. LUNGS: Diminished breath sounds at the bases, minimal crackles noted CVS: S1 and S2 normal with no audible murmurs, regular rhythm. ABDOMEN: Obese, soft. Extremities: There is trace peripheral edema. No clubbing, no cyanosis. Peripheral pulses are intact. Neurologic exam: No gross focal deficit. - Labs CBC & Chem 7: 07/15/16 04:16 07/15/16 07:52 Labs: Abnormal Lab Results - Last 24 Hours (Table) 07/14/16 07/14/16 07/14/16 Range/Units 15:13 16:16 17:09 RBC (3.80-5.40) m/uL Hgb (11.4-16.0) gm/dL Hct (34.0-46.0) % MCV (80.0-100.0) fL MCH (25.0-35.0) pg RDW (11.5-15.5) % Neutrophils # (1.3-7.7) k/uL Sodium (137-145) mmol/L BUN (7-17) mg/dL Creatinine (0.52-1.04) mg/dL Glucose (74-99) mg/dL POC Glucose (mg/dL) 166 H 129 H 139 H (75-99) mg/dL Phosphorus (2.5-4.5) mg/dL 07/14/16 07/14/16 07/14/16 Range/Units 18:10 19:00 20:09 RBC (3.80-5.40) m/uL Hgb (11.4-16.0) gm/dL Hct (34.0-46.0) % MCV (80.0-100.0) fL MCH (25.0-35.0) pg RDW (11.5-15.5) % Neutrophils # (1.3-7.7) k/uL Sodium (137-145) mmol/L BUN (7-17) mg/dL Creatinine (0.52-1.04) mg/dL Glucose (74-99) mg/dL POC Glucose (mg/dL) 180 H 181 H 162 H (75-99) mg/dL Phosphorus (2.5-4.5) mg/dL 07/14/16 07/14/16 07/15/16 Range/Units 21:10 22:13 00:00 RBC (3.80-5.40) m/uL Hgb (11.4-16.0) gm/dL Hct (34.0-46.0) % MCV (80.0-100.0) fL MCH (25.0-35.0) pg RDW (11.5-15.5) % Neutrophils # (1.3-7.7) k/uL Sodium (137-145) mmol/L BUN (7-17) mg/dL Creatinine (0.52-1.04) mg/dL Glucose (74-99) mg/dL POC Glucose (mg/dL) 153 H 149 H 133 H (75-99) mg/dL Phosphorus (2.5-4.5) mg/dL 07/15/16 07/15/16 07/15/16 Range/Units 00:56 01:31 02:07 RBC (3.80-5.40) m/uL Hgb (11.4-16.0) gm/dL Hct (34.0-46.0) % MCV (80.0-100.0) fL MCH (25.0-35.0) pg RDW (11.5-15.5) % Neutrophils # (1.3-7.7) k/uL Sodium (137-145) mmol/L BUN (7-17) mg/dL Creatinine (0.52-1.04) mg/dL Glucose (74-99) mg/dL POC Glucose (mg/dL) 175 H 187 H 188 H (75-99) mg/dL Phosphorus (2.5-4.5) mg/dL 07/15/16 07/15/16 07/15/16 Range/Units 03:07 04:06 04:16 RBC 3.24 L (3.80-5.40) m/uL Hgb 7.5 L (11.4-16.0) gm/dL Hct 24.1 L (34.0-46.0) % MCV 74.5 L (80.0-100.0) fL MCH 23.1 L (25.0-35.0) pg RDW 17.1 H (11.5-15.5) % Neutrophils # 8.3 H (1.3-7.7) k/uL Sodium (137-145) mmol/L BUN (7-17) mg/dL Creatinine (0.52-1.04) mg/dL Glucose (74-99) mg/dL POC Glucose (mg/dL) 172 H 151 H (75-99) mg/dL Phosphorus (2.5-4.5) mg/dL 07/15/16 07/15/16 07/15/16 Range/Units 04:16 05:55 09:02 RBC (3.80-5.40) m/uL Hgb (11.4-16.0) gm/dL Hct (34.0-46.0) % MCV (80.0-100.0) fL MCH (25.0-35.0) pg RDW (11.5-15.5) % Neutrophils # (1.3-7.7) k/uL Sodium 147 H (137-145) mmol/L BUN 45 H (7-17) mg/dL Creatinine 1.90 H (0.52-1.04) mg/dL Glucose 145 H (74-99) mg/dL POC Glucose (mg/dL) 147 H 229 H (75-99) mg/dL Phosphorus 5.2 H (2.5-4.5) mg/dL 07/15/16 07/15/16 07/15/16 Range/Units 10:17 10:58 12:26 RBC (3.80-5.40) m/uL Hgb (11.4-16.0) gm/dL Hct (34.0-46.0) % MCV (80.0-100.0) fL MCH (25.0-35.0) pg RDW (11.5-15.5) % Neutrophils # (1.3-7.7) k/uL Sodium (137-145) mmol/L BUN (7-17) mg/dL Creatinine (0.52-1.04) mg/dL Glucose (74-99) mg/dL POC Glucose (mg/dL) 225 H 196 H 154 H (75-99) mg/dL Phosphorus (2.5-4.5) mg/dL 07/15/16 Range/Units 13:08 RBC (3.80-5.40) m/uL Hgb (11.4-16.0) gm/dL Hct (34.0-46.0) % MCV (80.0-100.0) fL MCH (25.0-35.0) pg RDW (11.5-15.5) % Neutrophils # (1.3-7.7) k/uL Sodium (137-145) mmol/L BUN (7-17) mg/dL Creatinine (0.52-1.04) mg/dL Glucose (74-99) mg/dL POC Glucose (mg/dL) 146 H (75-99) mg/dL Phosphorus (2.5-4.5) mg/dL Assessment and Plan Plan: #1 Acute hypoxic and hypercapnic respiratory failure, multifactorial in a patient with acute exacerbation of diastolic congestive heart failure, suspected healthcare acquired pneumonia, obesity/hypoventilation syndrome, acute exacerbation of chronic obstructive pulmonary disease. #2 Acute exacerbation of diastolic congestive heart failure. Preserved left ventricular systolic function with estimated ejection fraction 55-60% on echo 06/30/2016. #3 Lactic acidosis and leukocytosis with possible sepsis . Positive blood cultures and urine cultures as noted above, infectious disease consultation was initiated. #4 Acute exacerbation chronic obstructive pulmonary disease. #5 Morbid obesity with suspected obesity/hypoventilation syndrome. #6 Recent discharge for acute exacerbation diastolic congestive heart failure. #7 Recent history of vaginal bleeding requiring dilatation and curettage. History of uterine cancer status post radiation. #8 History of coronary artery disease with previous myocardial infarction status post stent placements 5. Most recently in January 2016 at which time she received stenting x 3 to the proximal, mid and distal RCA. Maintained on Plavix. 9 History of CVA/TIA 04/15/2015 with profound weakness on the right side. #10 Diabetes fallon, type II. #11 Hypertension. #12 Hyperlipidemia. #13 Acute on chronic renal failure. Current creatinine 1.37. #14 Acute on chronic anemia. Current hemoglobin 7.5 hence we'll monitor her hemoglobin, and have it rechecked. Recommendation: Patient was extubated on 07/14/2016, tolerated the extubation quite well, will continue diuretics however the dose will be changed to 40 mg IV push every 8 hours and that his Lasix. Will consult infectious disease for input regarding her bacteremia and urinary tract infection. Patient could be transferred to a selective monitor bed today. We'll continue to follow. Discussed her condition with her and her at bedside. Critical care time is 33 minutes. Time with Patient: Greater than 30
[2016-07-15 15:00] LABS: Glucose,Whole Blood 208 mg/dL (75-99)
--- NOTE | 2016-07-15 17:01 | PN ---
DATE OF SERVICE: 07/15/2016 PRESENTING COMPLAINT: Short of breath. INTERVAL HISTORY: This patient with multiple medical problems, presented with acute hypoxic respiratory failure. Initially was intubated. Patient felt to have both CHF exacerbation and pneumonia. Patient out of bed. Did tolerate some diet. Still in the ICU. Family at the bedside. The patient awake and communicating. Review of systems done for constitutional, cardiovascular, GI, pulmonary; relevant findings as above. Current medications are reviewed. Patient on IV Zosyn and vancomycin. On examination temperature 98.3, pulse 71, respiration 25, blood pressure 137/57, pulse ox 95% on 2 liters. GENERAL APPEARANCE: Lying in bed, tired -appearing. EYES: Pupils equal. Conjunctivae normal. NECK: JVD not raised. Mass not palpable. RESPIRATORY: Effort normal. LUNGS: Diminished breath sounds. CARDIOVASCULAR: First and second sounds normal. No edema. ABDOMEN: Soft. Nontender. Liver and spleen not palpable. PSYCHIATRY: Awake, answering questions. NEUROLOGICAL: Chronic weakness in the right arm. INVESTIGATIONS: White count 10.6, hemoglobin 7.5. Potassium 3.9, BUN 45, creatinine 1.90. Chest x-ray shows improvement of the right side. ASSESSMENT: 1. Acute hypoxic respiratory failure, present on admission, from congestive heart failure and possible pneumonia. 2. Chronic diverticulosis. 3. 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 4. Possible acute on chronic congestive heart failure exacerbation from diastolic dysfunction, ejection fraction 55%, underlying coronary artery disease. 5. Essential hypertension. 6. Right arm weakness from old stroke. 7. Type 2 diabetes mellitus, chronically on insulin. 8. Obesity, body mass index more than 35. 9. Coronary artery disease with stent to the left anterior descending coronary artery, ( ) January 2015. 10. Hyperlipidemia. 11. Chronic obstructive pulmonary disease in an ex-smoker. 12. Fibromyalgia. 13. Primary osteoarthritis, multiple joints, bilateral. 14. Chronic urinary stress incontinence. 15. Depression not otherwise specified. 16. Possible basal pneumonia, suspect gram-negative organism. PLAN: Continue current medication and treatment plan. Patient ( ) better than before, but still critically ill. Care was discussed with the patient and at the bedside. Follow with pulmonary and cardiology.
[2016-07-15 17:03] LABS: Glucose,Whole Blood 175 mg/dL (75-99)
[2016-07-15] MEDS: ACETAMINOPHEN TAB 325 MG TAB PO PRN ×2 (18:16→23:35)
[2016-07-15 19:05] LABS: Glucose,Whole Blood 193 mg/dL (75-99)
[2016-07-15] MEDS: CLOPIDOGREL 75 MG TAB PO SCH (21:22)
[2016-07-15] MEDS: ATORVASTATIN 80 MG TAB PO SCH (21:22)
[2016-07-15 21:40] LABS: Glucose,Whole Blood 185 mg/dL (75-99)
[2016-07-15] MEDS ORDERED: IPRATROPIUM-ALBUTEROL 3 ML NEB INHALATION PRN (22:17)
[2016-07-15 23:30] LABS: Glucose,Whole Blood 159 mg/dL (75-99)
[2016-07-16 01:01] LABS: Glucose,Whole Blood 156 mg/dL (75-99)
[2016-07-16 03:38] LABS: Glucose,Whole Blood 151 mg/dL (75-99)
[2016-07-16 05:38] LABS: Glucose,Whole Blood 155 mg/dL (75-99)
[2016-07-16] MEDS: SODIUM CHLORIDE 0.9% 1,000 ML IV SCH ×2 (05:39→18:42)
[2016-07-16 06:06] LABS: Calcium 8.4 mg/dL (8.4-10.2); Magnesium 1.9 mg/dL (1.6-2.3); Potassium 3.6 mmol/L (3.5-5.1)
[2016-07-16 06:37] LABS: Anisocytosis Slight; Basophils % (A) 0 %; CH 23.5; CHCM 31.6; Eosinophils # (A) 0.4 k/uL (0-0.7); Eosinophils % (A) 4 %; HDW 3.82; HGB 7.5 gm/dL (11.4-16.0); Hypochromasia Moderate; Luc # (Auto) 0.07; Luc % (Auto) 1; Lymphocytes # (A) 1.1 k/uL (1.0-4.8); Lymphocytes % (A) 13 %; MCH 23.4 pg (25.0-35.0); MCHC 31.2 g/dL (31.0-37.0); MCV 74.9 fL (80.0-100.0); Mean Platelet Volume 7.9; Microcytosis Slight; Monocytes # (A) 0.5 k/uL (0-1.0); Monocytes % (A) 6 %; Neutrophils # (A) 6.6 k/uL (1.3-7.7); Neutrophils % (A) 76 %; Poikilocytosis Slight; RBC 3.21 m/uL (3.80-5.40); RDW 16.8 % (11.5-15.5); WBC 8.6 k/uL (3.8-10.6); WBC (Perox) 9.27
[2016-07-16] MEDS: NITROGLYCERIN OINT 1 INCH/GM PACKET TOPICAL SCH ×3 (06:48→17:39)
[2016-07-16 06:58] LABS: Glucose,Whole Blood 181 mg/dL (75-99)
[2016-07-16 07:38] LABS: Glucose,Whole Blood 206 mg/dL (75-99)
--- NOTE | 2016-07-16 08:26 | P.CRDCN ---
<Maureen Goyal E - Last Filed: 07/16/16 09:15> History of Present Illness Consult date: 07/16/16 Requesting physician: Amadeo Aguila Consult reason: congestive heart failure Chief complaint: Shortness Of breath History of present illness: This is a pleasant 66-year-old female who follows regularly with Dr. Ricci in the office. She has a known history of coronary artery disease with prior stent placement of the mid left main in 2014, most recently she underwent successful stenting of the mid proximal and distal RCA in January of last year, history of anemia, history of recent vaginal bleed and D&C, diabetes, hypertension, hyperlipidemia, patient was recently in the hospital earlier this month with a vaginal bleed, she underwent a D&C at that time. Prior to that patient did have an admission to the hospital with a GI bleed, she underwent an EGD and colonoscopy, EGD revealed gastritis and duodenitis, colonoscopy revealed sigmoid diverticulosis without any active bleeding, external hemorrhoids with acute inflammation, internal hemorrhoids. She was readmitted to the hospital on this occasion with sudden onset of shortness of breath. Admitted to the intensive care unit on admission required intubation and mechanical ventilatory support. She is now being followed on the telemetry unit. Overall she states her breathing is much improved, complaints of feeling extremely weak and achy all over. Continues to be on Lasix 40 mg IV every 8 hourly. I pressure this morning 148/66, heart rate in the 60s, 98% on 3 L of oxygen. Hemoglobin on admission 10.1, 7.5 this morning. Sodium this morning 144, potassium 3.6, BUN 42, creatinine 1.8. Magnesium level this morning 1.9. BNP level drawn on the was 1989. Patient continues to diurese well on IV Lasix, weight is down a total of 6 kg. Past Medical History Past Medical History: Asthma, Cancer, Heart Failure, COPD, CVA/TIA, Diabetes Mellitus, Eye Disorder, Fibromyalgia, GI Bleed, Hyperlipidemia, Hypertension, Myocardial Infarction ([place]), Osteoarthritis (OA), Pneumonia Additional Past Medical History / Comment(s): Pt recently admitted on 06/20/16 with acute blood loss anemia, possible uterine lesion/cancer (pt has hx of uterine cancer tx with radiation), cystitis and vaginal bleeding. 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 Last Myocardial Infarction Date:: 06/12/15 History of Any Multi-Drug Resistant Organisms: None Reported Past Surgical History: Cholecystectomy, Heart Catheterization, Heart Catheterization With Stent Additional Past Surgical History / Comment(s): 06/12/15 Cardiac cath, 06/15/15 PTCA with stent mid L main, D&C X2, YRS AGO HAD A DEVICE IN FOR RADIATION TX FOR UTERINE CA THAT WAS SINCE REMOVED.EGD/COLONOSCOPY.02/18/16 heart cath 3 stents to rca Past Anesthesia/Blood Transfusion Reactions: Motion Sickness Additional Past Anesthesia/Blood Transfusion Reaction / Comment(s): CLAUSTROPHOBIA. Pt has had blood transfusion in past-no reaction to blood Date of Last Stent Placement:: 02/18/16 Past Psychological History: Anxiety, Depression Additional Psychological History / Comment(s): Pt resides with her spouse. She is basically wheel chair bound most of the time for the past several yrs. She at times ambulates with assistance or pushes her wheelchair. She feeds herself. She has a supportive family. She has a sister that helps with her bathing and her олег and spouse will help with her medication. 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 Mother Family Medical History: CVA/TIA Additional Family Medical History / Comment(s): HEART PROBLEMS, STARTED DRINKING AFTER OF HER , she of a ruptured liver at age 59 yrs. Medications and Allergies Home Medications Medication Instructions Recorded Confirmed Type Clopidogrel [Plavix] 75 mg PO HS 06/12/15 07/13/16 History Insulin Aspart [NovoLOG] 22 unit SQ AC-TID 12/10/15 07/13/16 History Insulin Glargine [Lantus] 60 unit SQ HS 01/15/16 07/13/16 History Diphenox-Atrop 2.5-0.025 mg 2 tab PO QID PRN 01/27/16 07/13/16 History [Lomotil] Albuterol Sulfate [Proventil Hfa] 1 - 2 puff INHALATION RT-Q6H PRN 02/15/16 History Insulin Glargine [Lantus] 10 unit SQ AC-BRKFST 02/15/16 07/13/16 History Carvedilol [Coreg] 12.5 mg PO BID 03/23/16 07/13/16 History Dicyclomine [Bentyl] 10 mg PO TID 06/16/16 07/13/16 History Furosemide [Lasix] 40 mg PO DAILY 07/13/16 07/13/16 History amLODIPine BESYLATE [Norvasc] 5 mg PO DAILY 07/13/16 07/13/16 History Allergies Allergy/AdvReac Type Severity Reaction Status Date / Time hydralazine Allergy Mild Anaphylaxis Verified 07/13/16 08:24 codeine Allergy Nausea/ Verified 07/13/16 08:24 hard to wake up hydrocodone Allergy Unknown Verified 07/13/16 08:24 lisinopril Allergy Rapid Verified 07/13/16 08:24 Heart Rate Physical Exam Vitals: Vital Signs Temp Pulse Pulse Pulse Resp BP BP 07/16/16 04:00 98.1 F 68 18 148/66 07/16/16 00:00 97.5 F L 70 18 168/70 07/15/16 21:04 77 07/15/16 20:46 74 07/15/16 20:00 97.9 F 76 76 17 140/68 07/15/16 19:00 72 16 134/50 07/15/16 18:00 73 16 135/53 07/15/16 17:00 72 23 143/52 07/15/16 16:19 79 07/15/16 16:03 72 07/15/16 16:00 97.6 F 72 16 141/67 07/15/16 15:00 69 15 151/54 07/15/16 14:00 68 15 125/37 07/15/16 13:00 71 20 119/51 07/15/16 12:11 70 07/15/16 12:00 98.1 F 71 12 121/48 07/15/16 11:59 73 07/15/16 11:00 73 19 145/88 07/15/16 10:00 72 31 H 152/49 07/15/16 09:00 72 15 141/47 07/15/16 08:10 74 Pulse Ox 07/16/16 04:00 98 07/16/16 00:00 93 L 07/15/16 21:04 07/15/16 20:46 07/15/16 20:00 98 07/15/16 19:00 95 07/15/16 18:00 96 07/15/16 17:00 97 07/15/16 16:19 07/15/16 16:03 07/15/16 16:00 96 07/15/16 15:00 07/15/16 14:00 07/15/16 13:00 07/15/16 12:11 07/15/16 12:00 07/15/16 11:59 07/15/16 11:00 94 L 07/15/16 10:00 96 07/15/16 09:00 96 07/15/16 08:10 Intake and Output 07/15/16 07/16/16 07/16/16 22:59 06:59 14:59 Intake Total 649.880 279.380 Output Total 725 1700 Balance -75.120 -1420.620 Intake: IV 375 130 Piperacillin-Tazobactam 3 50 .375 gm In Dextrose/Water 1 50ml.bag @ 12.5 mls/hr IVPB Q8HR [facility] Rx#: [id number] Sodium Chloride 0.9% 1, 375 80 000 ml @ 75 mls/hr IV . [id number] [facility] Rx#:[id number] Vancomycin 1,500 mg In 0 Sodium Chloride 0.9% 250 ml @ 125 mls/hr IVPB Q48H [facility] Rx#:[id number] Intake, IV Titration 24.880 29.380 Amount Insulin Regular 100 unit 24.880 29.380 In Sodium Chloride 0.9% 100 ml @ Titrate IV .Q0M [facility] Rx#:[id number] Oral 250 120 Output: Urine 725 1700 Uretheral ([facility]) 1700 Other: Voiding Method Indwelling Catheter Indwelling Catheter Weight 94.8 kg PHYSICAL EXAMINATION: HEENT: Head is atraumatic, normocephalic. Pupils equal, round. Neck is supple. There is no elevated jugular venous pressure. HEART EXAMINATION: Heart S1, S2 normal. No murmur or gallop heard. CHEST EXAMINATION: Lungs are clear with fine crackles to posterior bases. ABDOMEN: Soft, nontender. Bowel sounds are heard. No organomegaly noted. EXTREMITIES: 2+ peripheral pulses with no evidence of peripheral edema and no calf tenderness noted. NEUROLOGIC patient is awake, alert and oriented -3. . Results 07/16/16 05:33 07/16/16 05:33 CBC 07/16/16 Range/Units 05:33 WBC 8.6 (3.8-10.6) k/uL RBC 3.21 L (3.80-5.40) m/uL Hgb 7.5 L (11.4-16.0) gm/dL Hct 24.0 L (34.0-46.0) % Plt Count 172 (150-450) k/uL Comprehensive Metabolic Panel 07/15/16 07/16/16 Range/Units 07:52 05:33 Sodium 144 (137-145) mmol/L Potassium 4.1 3.6 (3.5-5.1) mmol/L Chloride 103 (98-107) mmol/L Carbon Dioxide 30 (22-30) mmol/L BUN 42 H (7-17) mg/dL Creatinine 1.80 H (0.52-1.04) mg/dL Glucose 154 H (74-99) mg/dL Calcium 8.4 (8.4-10.2) mg/dL Current Medications Generic Name Dose Route Start Last Admin Trade Name Freq PRN Reason Stop Dose Admin Acetaminophen 650 mg 07/14/16 20:44 07/15/16 23:35 Tylenol Tab PO 650 mg Q6HR PRN Administration Fever and/ or Pain Albuterol/Ipratropium 3 ml 07/15/16 22:17 Duoneb 0.5 Mg-3 Mg/3 Ml Soln INHALATION RT-QID PRN Shortness Of Breath Or Wheezing Albuterol/Ipratropium 3 ml 07/16/16 08:00 Duoneb 0.5 Mg-3 Mg/3 Ml Soln INHALATION RT-QID [facility] Amlodipine Besylate 5 mg 07/13/16 18:00 07/15/16 08:48 Norvasc PO 5 mg DAILY [facility] Administration Aspirin 81 mg 07/13/16 18:00 07/15/16 08:48 Aspirin PO 81 mg DAILY [facility] Administration Atorvastatin Calcium 80 mg 07/13/16 21:00 07/15/16 21:22 Lipitor PO 80 mg HS [facility] Administration Carvedilol 12.5 mg 07/13/16 21:00 07/15/16 21:22 Coreg PO 12.5 mg BID [facility] Administration Clopidogrel Bisulfate 75 mg 07/13/16 21:00 07/15/16 21:22 Plavix PO 75 mg HS [facility] Administration Furosemide 40 mg 07/15/16 12:00 07/15/16 23:35 Lasix IV 40 mg Q8HR [facility] Administration Sodium Chloride 1,000 mls @ 75 mls/hr 07/13/16 10:15 07/16/16 05:39 Saline 0.9% IV Not Given .[id number] [facility] Piperacillin/Tazobactam/ 50 mls @ 12.5 mls/hr 07/13/16 16:00 07/16/16 00:00 Dextrose 3.375 gm/ IV Solution IVPB 12.5 mls/hr Q8HR [facility] Administration Propofol 500 mg/ IV Solution 50 mls @ 0 mls/hr 07/13/16 17:45 07/14/16 10:20 IV 0 mls/hr .Q0M [facility] 0 mls/hr Protocol Titration Titrate Vancomycin HCl 1,500 mg/ 250 mls @ 125 mls/hr 07/15/16 06:00 07/15/16 05:39 Sodium Chloride IVPB 125 mls/hr Q48H [facility] Administration Insulin Human Regular 100 unit 101 mls @ 0 mls/hr 07/15/16 13:00 07/16/16 06: 55 / Sodium Chloride IV 4 units/hr .Q0M [facility] 4.04 mls/hr Protocol Titration Titrate Miscellaneous Information 1 each 07/14/16 15:15 Potassium Per Protocol MISCELLANE DAILY PRN Per Protocol Protocol Naloxone HCl 0.2 mg 07/13/16 10:48 Narcan IV Q2M PRN Opioid Reversal Nitroglycerin 1 inch 07/13/16 12:00 07/16/16 06:48 Nitro-Bid Oint TOPICAL 1 inch Q6HR [facility] Administration Nystatin 1 applic 07/13/16 21:00 07/15/16 21:22 Mycostatin Powder TOPICAL 1 applic BID [facility] Administration Pantoprazole Sodium 40 mg 07/14/16 09:00 07/15/16 08:48 Protonix IV 40 mg DAILY [facility] Administration Intake and Output 07/15/16 07/16/16 07/16/16 22:59 06:59 14:59 Intake Total 649.880 279.380 Output Total 725 1700 Balance -75.120 -1420.620 Intake: IV 375 130 Piperacillin-Tazobactam 3 50 .375 gm In Dextrose/Water 1 50ml.bag @ 12.5 mls/hr IVPB Q8HR [facility] Rx#: [id number] Sodium Chloride 0.9% 1, 375 80 000 ml @ 75 mls/hr IV . [id number] [facility] Rx#:[id number] Vancomycin 1,500 mg In 0 Sodium Chloride 0.9% 250 ml @ 125 mls/hr IVPB Q48H [facility] Rx#:[id number] Intake, IV Titration 24.880 29.380 Amount Insulin Regular 100 unit 24.880 29.380 In Sodium Chloride 0.9% 100 ml @ Titrate IV .Q0M [facility] Rx#:[id number] Oral 250 120 Output: Urine 725 1700 Uretheral ([place]) 1700 Other: Voiding Method Indwelling Catheter Indwelling Catheter Weight 94.8 kg 07/16/16 05:33 07/16/16 05:33 EKG Interpretations (text) EKG shows a normal sinus rhythm with first-degree AV block. Assessment and Plan Plan: Assessment and plan #1 diastolic congestive heart failure acute on chronic #2 acute hypoxic and hypercapnic respiratory failure,suspected acquired pneumonia, hypoventilation syndrome, acute exacerbation of COPD. #3 leukocytosis with possible sepsis #4 morbid obesity #5 recent history of vaginal bleeding requiring a D&C, history of uterine cancer. #6 known history of coronary artery disease with prior LAD and RCA stents, most recent stent was in January of last year, patient continues to be on aspirin and Plavix #7 hypertension #8 hyperlipidemia #9 diabetes #10 Anemia Plan We will continue the patient on current dose of IV Lasix. Infectious disease has been consulted regarding bacteremia and UTI. Continue to monitor intake and output along with daily weights. Monitor hemoglobin. DNP note has been reviewed, I agree with a documented findings and plan of care. Patient was seen and examined. <Bill Kim - Last Filed: 07/16/16 12:48> Physical Exam Vitals: Vital Signs Temp Pulse Pulse Pulse Resp BP BP 07/16/16 11:55 80 07/16/16 11:42 78 07/16/16 09:01 74 07/16/16 08:52 72 07/16/16 08:00 97.7 F 72 18 182/77 07/16/16 04:00 98.1 F 68 18 148/66 07/16/16 00:00 97.5 F L 70 18 168/70 07/15/16 21:04 77 07/15/16 20:46 74 07/15/16 20:00 97.9 F 76 76 17 140/68 07/15/16 19:00 72 16 134/50 07/15/16 18:00 73 16 135/53 07/15/16 17:00 72 23 143/52 07/15/16 16:19 79 07/15/16 16:03 72 07/15/16 16:00 97.6 F 72 16 141/67 07/15/16 15:00 69 15 151/54 07/15/16 14:00 68 15 125/37 07/15/16 13:00 71 20 119/51 Pulse Ox 07/16/16 11:55 07/16/16 11:42 07/16/16 09:01 07/16/16 08:52 07/16/16 08:00 100 07/16/16 04:00 98 07/16/16 00:00 93 L 07/15/16 21:04 07/15/16 20:46 07/15/16 20:00 98 07/15/16 19:00 95 07/15/16 18:00 96 07/15/16 17:00 97 07/15/16 16:19 07/15/16 16:03 07/15/16 16:00 96 07/15/16 15:00 07/15/16 14:00 07/15/16 13:00 Intake and Output 07/15/16 07/16/16 07/16/16 22:59 06:59 14:59 Intake Total 649.880 279.380 32.576 Output Total 725 1700 Balance -75.120 -1420.620 32.576 Intake: IV 375 130 Piperacillin-Tazobactam 3 50 .375 gm In Dextrose/Water 1 50ml.bag @ 12.5 mls/hr IVPB Q8HR [facility] Rx#: [id number] Sodium Chloride 0.9% 1, 375 80 000 ml @ 75 mls/hr IV . [id number] [facility] Rx#:[id number] Vancomycin 1,500 mg In 0 Sodium Chloride 0.9% 250 ml @ 125 mls/hr IVPB Q48H [facility] Rx#:[id number] Intake, IV Titration 24.880 29.380 32.576 Amount Insulin Regular 100 unit 24.880 29.380 32.576 In Sodium Chloride 0.9% 100 ml @ Titrate IV .Q0M [facility] Rx#:[id number] Oral 250 120 Output: Urine 725 1700 Uretheral ([place]) 1700 Other: Voiding Method Indwelling Catheter Indwelling Catheter Weight 94.8 kg Results 07/16/16 05:33 07/16/16 05:33 CBC 07/16/16 Range/Units 05:33 WBC 8.6 (3.8-10.6) k/uL RBC 3.21 L (3.80-5.40) m/uL Hgb 7.5 L (11.4-16.0) gm/dL Hct 24.0 L (34.0-46.0) % Plt Count 172 (150-450) k/uL Comprehensive Metabolic Panel 07/16/16 Range/Units 05:33 Sodium 144 (137-145) mmol/L Potassium 3.6 (3.5-5.1) mmol/L Chloride 103 (98-107) mmol/L Carbon Dioxide 30 (22-30) mmol/L BUN 42 H (7-17) mg/dL Creatinine 1.80 H (0.52-1.04) mg/dL Glucose 154 H (74-99) mg/dL Calcium 8.4 (8.4-10.2) mg/dL Current Medications Generic Name Dose Route Start Last Admin Trade Name Freq PRN Reason Stop Dose Admin Acetaminophen 650 mg 07/14/16 20:44 07/16/16 09:24 Tylenol Tab PO 650 mg Q6HR PRN Administration Fever and/ or Pain Albuterol/Ipratropium 3 ml 07/15/16 22:17 Duoneb 0.5 Mg-3 Mg/3 Ml Soln INHALATION RT-QID PRN Shortness Of Breath Or Wheezing Albuterol/Ipratropium 3 ml 07/16/16 08:00 07/16/16 11:41 Duoneb 0.5 Mg-3 Mg/3 Ml Soln INHALATION 3 ml RT-QID [facility] Administration Amlodipine Besylate 5 mg 07/13/16 18:00 07/16/16 09:23 Norvasc PO 5 mg DAILY [facility] Administration Aspirin 81 mg 07/13/16 18:00 07/16/16 09:23 Aspirin PO 81 mg DAILY [facility] Administration Atorvastatin Calcium 80 mg 07/13/16 21:00 07/15/16 21:22 Lipitor PO 80 mg HS [facility] Administration Carvedilol 12.5 mg 07/13/16 21:00 07/16/16 09:23 Coreg PO 12.5 mg BID [facility] Administration Clopidogrel Bisulfate 75 mg 07/13/16 21:00 07/15/16 21:22 Plavix PO 75 mg HS [facility] Administration Furosemide 40 mg 07/15/16 12:00 07/16/16 09:22 Lasix IV 40 mg Q8HR [facility] Administration Sodium Chloride 1,000 mls @ 75 mls/hr 07/13/16 10:15 07/16/16 05:39 Saline 0.9% IV Not Given .[id number] [facility] Piperacillin/Tazobactam/ 50 mls @ 12.5 mls/hr 07/13/16 16:00 07/16/16 12:02 Dextrose 3.375 gm/ IV Solution IVPB 12.5 mls/hr Q8HR [facility] Administration Propofol 500 mg/ IV Solution 50 mls @ 0 mls/hr 07/13/16 17:45 07/14/16 10:20 IV 0 mls/hr .Q0M [facility] 0 mls/hr Protocol Titration Titrate Vancomycin HCl 1,500 mg/ 250 mls @ 125 mls/hr 07/15/16 06:00 07/15/16 05:39 Sodium Chloride IVPB 125 mls/hr Q48H [facility] Administration Insulin Human Regular 100 unit 101 mls @ 0 mls/hr 07/15/16 13:00 07/16/16 11: 59 / Sodium Chloride IV 4 units/hr .Q0M [facility] 4.04 mls/hr Protocol Administration Titrate Miscellaneous Information 1 each 07/14/16 15:15 Potassium Per Protocol MISCELLANE DAILY PRN Per Protocol Protocol Naloxone HCl 0.2 mg 07/13/16 10:48 Narcan IV Q2M PRN Opioid Reversal Nitroglycerin 1 inch 07/13/16 12:00 07/16/16 12:03 Nitro-Bid Oint TOPICAL 1 inch Q6HR [facility] Administration Nystatin 1 applic 07/13/16 21:00 07/16/16 09:23 Mycostatin Powder TOPICAL 1 applic BID [facility] Administration Pantoprazole Sodium 40 mg 07/14/16 09:00 07/16/16 09:23 Protonix IV 40 mg DAILY [facility] Administration Intake and Output 07/15/16 07/16/16 07/16/16 22:59 06:59 14:59 Intake Total 649.880 279.380 32.576 Output Total 725 1700 Balance -75.120 -1420.620 32.576 Intake: IV 375 130 Piperacillin-Tazobactam 3 50 .375 gm In Dextrose/Water 1 50ml.bag @ 12.5 mls/hr IVPB Q8HR [facility] Rx#: [id number] Sodium Chloride 0.9% 1, 375 80 000 ml @ 75 mls/hr IV . [id number] [facility] Rx#:[id number] Vancomycin 1,500 mg In 0 Sodium Chloride 0.9% 250 ml @ 125 mls/hr IVPB Q48H [facility] Rx#:[id number] Intake, IV Titration 24.880 29.380 32.576 Amount Insulin Regular 100 unit 24.880 29.380 32.576 In Sodium Chloride 0.9% 100 ml @ Titrate IV .Q0M [facility] Rx#:[id number] Oral 250 120 Output: Urine 725 1700 Uretheral ([place]) 1700 Other: Voiding Method Indwelling Catheter Indwelling Catheter Weight 94.8 kg 07/16/16 05:33 07/16/16 05:33
[2016-07-16] MEDS: IPRATROPIUM-ALBUTEROL 3 ML NEB INHALATION SCH ×4 (08:52→20:23)
[2016-07-16 09:07] LABS: Glucose,Whole Blood 261 mg/dL (75-99)
[2016-07-16] MEDS: FUROSEMIDE 10 MG/ML 4 ML VIAL IV SCH ×2 (09:22→15:16)
[2016-07-16] MEDS: ASPIRIN 81 MG CHEW PO SCH (09:23)
[2016-07-16] MEDS: CARVEDILOL 12.5 MG TAB PO SCH ×2 (09:23→22:44)
[2016-07-16] MEDS: PANTOPRAZOLE 40 MG/10 ML VIAL IV SCH (09:23)
[2016-07-16] MEDS: amLODIPine 5 MG TAB PO SCH (09:23)
[2016-07-16] MEDS: NYSTATIN 100,000 UNIT/GM POWD 15 GM TOPICAL SCH ×2 (09:23→22:45)
[2016-07-16] MEDS: ACETAMINOPHEN TAB 325 MG TAB PO PRN ×2 (09:24→22:43)
--- NOTE | 2016-07-16 09:33 | XR ---
EXAMINATION TYPE: XR chest 1V portable DATE OF EXAM: 07/16/2016 7:12 AM COMPARISON: NONE INDICATION: CHF TECHNIQUE: Single frontal view of the chest is obtained. FINDINGS: Heart size is mildly prominent The pulmonary vasculature is normal. Previous right pleural effusion is not evident. Left pleural effusion and/or atelectasis may be at th e left base IMPRESSION: 1. Mild left basilar infiltrate or pleural effusion. 2. Improving lung markings the right lung base
[2016-07-16 11:30] LABS: Glucose,Whole Blood 193 mg/dL (75-99)
--- NOTE | 2016-07-16 11:37 | P.PN ---
Subjective Principal diagnosis: Acute hypoxic respiratory failure secondary to diastolic congestive heart failure This is a 66-year-old female patient who follows with Dr. Maddison Hermosillo as her primary care physician. She has a past medical history of diastolic congestive heart failure with preserved left ventricular systolic function with estimated ejection fraction 55-60%, recent vaginal bleeding secondary to uterine polyp status post D&C, chronic kidney disease stage III, diabetes moist type II, coronary artery disease with stent placements 5, hypertension, hyperlipidemia, pulmonary hypertension, history of femoral pseudoaneurysm, CVA, morbid obesity, chronic obstructive pulmonary disease with a significant smoking history however quit in May 2015, fibromyalgia, gastric cancer. She was recently discharged from here on 07/04/2016 after an acute exacerbation of her chronic diastolic congestive heart failure. She also had issues with vaginal bleeding at that time. The patient is needing to stay on her Plavix secondary to her stent placements. According to the patient's family she had been doing fairly well at home until this morning. She woke up with significant shortness of breath cough and congestion. EMS was called and she was given Solu-Medrol and updraft treatment in route. Upon arrival to the emergency room she became continue with severe respiratory distress requiring intubation and mechanical ventilatory support. She is seen in consultation in the ER. Her chest x-ray does reveal evidence of fluid volume overload/ congestive heart failure. Difficult to rule out any underlying airspace disease and possible healthcare acquired pneumonia/sepsis as she was recently discharged. Her current vent settings are assist-control at a rate of 16, tidal volume 500, FiO2 50% and a PEEP of 5. Initial blood class is on 100% FiO2 revealed a pO2 of 352, pCO2 57, pH 7.22. Initial white count 22.7, lactic acid 4.3, proBNP 1990, troponin 0.013, d-dimer 0.91, creatinine 1.37. Reevaluated today on 07/14/2016, patient remains on mechanical ventilations, however her ABG is significantly improved with a pO2 of 133 pCO2 of 39 pH of 7.39 patient is on 35% FiO2 her chest x-ray was reviewed and it seems significantly improved patient responded well to Lasix drip. Her hemoglobin however is low at 7.6, it was 10.1 on admission yesterday. We will do further investigation into the hemoglobin drop, and we'll recheck it. If it is below 7 , then the patient will need to be transfused. Metabolic profile was reviewed, BUN is up to 44 creatinine is 1.80. I believe the patient must have sustained acute kidney injury, most likely a cardiorenal syndrome type of picture. Preliminary report on the blood culture is positive for gram-positive cocci in pairs, hence the patient was given empirically vancomycin and Zosyn. Final report on the blood culture is pending. Reevaluated today on 07/15/2016, patient was extubated yesterday, and she tolerated the extubation well so far. Chest x-ray continues to show significant improvement, small bilateral pleural effusions were noted. Patient is becoming relatively dehydrated, hence I stopped her IV Lasix drip, and I will switch her to IV push Lasix. Her labs were reviewed, hemoglobin is 7.5, her BUN is elevated at 45, and creatinine is 1.90. Her urine is positive for E. coli and yeast species, blood is positive for Streptococcus mitis/oralis which can cause infective endocarditis, ideal drug of choice would be a clindamycin, however I will go ahead and recommended infectious disease consultation. May have to consider echocardiogram on this patient and repeat blood cultures. Patient received Zosyn and vancomycin upon admission. Patient was reevaluated today on 07/16/2016, she is presently on selective, continues to tolerate extubation well, she is presently on nasal cannula, and feels much better. Breathing a lot easier. Denies any cough no wheezing no shortness of breath. Hemoglobin remains low 7.5 but stable, WBC count is 8.6. Chest x-ray continues to show improving of lung markings and small left pleural effusion is suspected. Objective - Vital Signs Vital signs: Vital Signs Temp 97.7 F 07/16/16 08:00 Pulse 74 07/16/16 09:01 Resp 18 07/16/16 08:00 BP 182/77 07/16/16 08:00 Pulse Ox 100 07/16/16 08:00 Intake & Output 07/15/16 07/16/16 07/16/16 18:59 06:59 18:59 Intake Total 1880.570 369.665 9.696 Output Total 2024 1850 Balance -144.430 -1480.335 9.696 Weight 100.5 kg 94.8 kg Intake: IV 912.5 205 Piperacillin-Tazobactam 3 37.5 50 .375 gm In Dextrose/Water 1 50ml.bag @ 12.5 mls/hr IVPB Q8HR DUSTIN Rx#: [id number] Sodium Chloride 0.9% 1, 750 155 000 ml @ 75 mls/hr IV . [id number] DUSTIN Rx#:[id number] Vancomycin 1,500 mg In 125 0 Sodium Chloride 0.9% 250 ml @ 125 mls/hr IVPB Q48H [facility]USTIN Rx#:[id number] Intake, IV Titration 118.070 44.665 9.696 Amount Insulin Regular 100 unit 33.475 In Sodium Chloride 0.9% 100 ml @ Per Protocol IV .Q0M DUSTIN Rx#:[id number] Insulin Regular 100 unit 9.595 44.665 9.696 In Sodium Chloride 0.9% 100 ml @ Titrate IV .Q0M DUSTIN Rx#:[id number] Sodium Chloride 0.9% 1, 75 000 ml @ 75 mls/hr IV . [id number] [facility]USTIN Rx#:[id number] Oral 850 120 Output: Urine 2024 1849 Uretheral ([place]) 1700 Other: Voiding Method Indwelling Catheter Indwelling Catheter - Exam GENERAL EXAM: Morbidly obese. Off mechanical ventilation, on nasal cannula, in no distress. HEAD: Normocephalic. EYES: Normal reaction of pupils, equal size. NOSE: Unremarkable THROAT: Clear NECK: No masses, no JVD. CHEST: No chest wall deformity. LUNGS: Diminished breath sounds at the bases, minimal crackles noted CVS: S1 and S2 normal with no audible murmurs, regular rhythm. ABDOMEN: Obese, soft. Extremities: There is trace peripheral edema. No clubbing, no cyanosis. Peripheral pulses are intact. Neurologic exam: No gross focal deficit. - Labs CBC & Chem 7: 07/16/16 05:33 07/16/16 05:33 Labs: Abnormal Lab Results - Last 24 Hours (Table) 07/15/16 07/15/16 07/15/16 Range/Units 12:26 13:08 14:58 RBC (3.80-5.40) m/uL Hgb (11.4-16.0) gm/dL Hct (34.0-46.0) % MCV (80.0-100.0) fL MCH (25.0-35.0) pg RDW (11.5-15.5) % BUN (7-17) mg/dL Creatinine (0.52-1.04) mg/dL Glucose (74-99) mg/dL POC Glucose (mg/dL) 154 H 146 H 208 H (75-99) mg/dL Phosphorus (2.5-4.5) mg/dL 07/15/16 07/15/16 07/15/16 Range/Units 17:02 19:04 21:02 RBC (3.80-5.40) m/uL Hgb (11.4-16.0) gm/dL Hct (34.0-46.0) % MCV (80.0-100.0) fL MCH (25.0-35.0) pg RDW (11.5-15.5) % BUN (7-17) mg/dL Creatinine (0.52-1.04) mg/dL Glucose (74-99) mg/dL POC Glucose (mg/dL) 175 H 193 H 185 H (75-99) mg/dL Phosphorus (2.5-4.5) mg/dL 07/15/16 07/16/16 07/16/16 Range/Units 23:20 00:48 03:20 RBC (3.80-5.40) m/uL Hgb (11.4-16.0) gm/dL Hct (34.0-46.0) % MCV (80.0-100.0) fL MCH (25.0-35.0) pg RDW (11.5-15.5) % BUN (7-17) mg/dL Creatinine (0.52-1.04) mg/dL Glucose (74-99) mg/dL POC Glucose (mg/dL) 159 H 156 H 151 H (75-99) mg/dL Phosphorus (2.5-4.5) mg/dL 07/16/16 07/16/16 07/16/16 Range/Units 05:33 05:33 05:37 RBC 3.21 L (3.80-5.40) m/uL Hgb 7.5 L (11.4-16.0) gm/dL Hct 24.0 L (34.0-46.0) % MCV 74.9 L (80.0-100.0) fL MCH 23.4 L (25.0-35.0) pg RDW 16.8 H (11.5-15.5) % BUN 42 H (7-17) mg/dL Creatinine 1.80 H (0.52-1.04) mg/dL Glucose 154 H (74-99) mg/dL POC Glucose (mg/dL) 155 H (75-99) mg/dL Phosphorus 6.0 H (2.5-4.5) mg/dL 07/16/16 07/16/16 07/16/16 Range/Units 06:51 07:35 09:05 RBC (3.80-5.40) m/uL Hgb (11.4-16.0) gm/dL Hct (34.0-46.0) % MCV (80.0-100.0) fL MCH (25.0-35.0) pg RDW (11.5-15.5) % BUN (7-17) mg/dL Creatinine (0.52-1.04) mg/dL Glucose (74-99) mg/dL POC Glucose (mg/dL) 181 H 206 H 261 H (75-99) mg/dL Phosphorus (2.5-4.5) mg/dL 07/16/16 Range/Units 11:20 RBC (3.80-5.40) m/uL Hgb (11.4-16.0) gm/dL Hct (34.0-46.0) % MCV (80.0-100.0) fL MCH (25.0-35.0) pg RDW (11.5-15.5) % BUN (7-17) mg/dL Creatinine (0.52-1.04) mg/dL Glucose (74-99) mg/dL POC Glucose (mg/dL) 193 H (75-99) mg/dL Phosphorus (2.5-4.5) mg/dL Assessment and Plan Plan: #1 status post Acute hypoxic and hypercapnic respiratory failure, multifactorial in a patient with acute exacerbation of diastolic congestive heart failure, suspected healthcare acquired pneumonia, obesity/hypoventilation syndrome, acute exacerbation of chronic obstructive pulmonary disease. #2 Acute exacerbation of diastolic congestive heart failure. Preserved left ventricular systolic function with estimated ejection fraction 55-60% on echo 06/30/2016. #3 Lactic acidosis and leukocytosis with possible sepsis . Positive blood cultures and urine cultures as noted above, infectious disease consultation was initiated. #4 Acute exacerbation chronic obstructive pulmonary disease. #5 Morbid obesity with suspected obesity/hypoventilation syndrome. #6 Recent discharge for acute exacerbation diastolic congestive heart failure. #7 Recent history of vaginal bleeding requiring dilatation and curettage. History of uterine cancer status post radiation. #8 History of coronary artery disease with previous myocardial infarction status post stent placements 5. Most recently in January 2016 at which time she received stenting x 3 to the proximal, mid and distal RCA. Maintained on Plavix. 9 History of CVA/TIA 04/15/2015 with profound weakness on the right side. #10 Diabetes fallon, type II. #11 Hypertension. #12 Hyperlipidemia. #13 Acute on chronic renal failure. Current creatinine 1.37. #14 Acute on chronic anemia. Current hemoglobin 7.5 hence we'll monitor her hemoglobin, and have it rechecked. Recommendation: Patient was extubated on 07/14/2016, tolerated the extubation quite well, will continue diuretics however the dose will be changed to 40 mg IV push every 8 hours and that his Lasix. Will consult infectious disease for input regarding her bacteremia and urinary tract infection. We'll continue to follow. Discussed her condition with her and her at bedside. Time with Patient: Less than 30
[2016-07-16] MEDS: INSULIN REGULAR 100 UNIT in SODIUM CHLORIDE 0.9% 100 ML IV SCH (11:59)
[2016-07-16] MEDS: PIPERACILLIN-TAZOBACTAM 3.375 GM in DEXTROSE/WATER 1 50ML.BAG IVPB SCH ×3 (12:02→18:41)
[2016-07-16 13:25] LABS: Glucose,Whole Blood 187 mg/dL (75-99)
[2016-07-16 15:14] LABS: Glucose,Whole Blood 200 mg/dL (75-99)
[2016-07-16 16:59] LABS: Glucose,Whole Blood 181 mg/dL (75-99)
[2016-07-16 19:13] LABS: Glucose,Whole Blood 205 mg/dL (75-99)
[2016-07-16 21:00] LABS: Glucose,Whole Blood 177 mg/dL (75-99)
[2016-07-16] MEDS ORDERED: INSULIN GLARGINE 100 UNIT/ML 10 ML VIAL SQ SCH (21:00)
[2016-07-16] MEDS: CLOPIDOGREL 75 MG TAB PO SCH (22:44)
[2016-07-16] MEDS: ATORVASTATIN 80 MG TAB PO SCH (22:44)
[2016-07-17] MEDS: FUROSEMIDE 10 MG/ML 4 ML VIAL IV SCH ×3 (00:43→16:03)
[2016-07-17] MEDS: NITROGLYCERIN OINT 1 INCH/GM PACKET TOPICAL SCH ×4 (00:43→16:03)
[2016-07-17] MEDS: PIPERACILLIN-TAZOBACTAM 3.375 GM in DEXTROSE/WATER 1 50ML.BAG IVPB SCH ×4 (00:43→23:55)
[2016-07-17 05:55] LABS: Glucose,Whole Blood 244 mg/dL (75-99)
[2016-07-17 06:26] LABS: Anisocytosis Slight; Basophils % (A) 0 %; CH 23.4; CHCM 31.6; Eosinophils # (A) 0.4 k/uL (0-0.7); Eosinophils % (A) 5 %; HCT 23.9 % (34.0-46.0); HDW 3.95; HGB 7.4 gm/dL (11.4-16.0); Hypochromasia Moderate; Luc # (Auto) 0.08; Luc % (Auto) 1; Lymphocytes # (A) 1.1 k/uL (1.0-4.8); Lymphocytes % (A) 15 %; MCHC 30.9 g/dL (31.0-37.0); MCV 74.4 fL (80.0-100.0); Mean Platelet Volume 7.6; Microcytosis Slight; Monocytes # (A) 0.3 k/uL (0-1.0); Monocytes % (A) 5 %; Neutrophils # (A) 5.3 k/uL (1.3-7.7); Neutrophils % (A) 74 %; Poikilocytosis Slight; RBC 3.21 m/uL (3.80-5.40); RDW 16.3 % (11.5-15.5); WBC 7.1 k/uL (3.8-10.6); WBC (Perox) 7.17
[2016-07-17] MEDS: VANCOMYCIN 1,500 MG in SODIUM CHLORIDE 0.9% 250 ML IVPB SCH (06:34)
[2016-07-17 06:40] LABS: Calcium 8.5 mg/dL (8.4-10.2); Magnesium 1.8 mg/dL (1.6-2.3); Potassium 3.7 mmol/L (3.5-5.1)
[2016-07-17 07:21] LABS: Appearance,Urine Clear (Clear); Bilirubin,Urine Negative (Negative); Glucose,Urine (UA) Negative (Negative); Ketones,Urine Negative (Negative); Leukocyte Esterase,Urine Small (Negative); Mucus,Urine Rare /hpf; Nitrite,Urine Negative (Negative); Particle Count 2172; Protein,Urine 1+ (Negative); RBC,Urine 20 /hpf (0-5); Specific Gravity,Urine 1.007 (1.001-1.035); Squamous Epithelial Cell,Urine 2 /hpf (0-4); UA Billing (MACRO vs. MICRO) MICRO; Urobilinogen,Urine <2.0 mg/dL (<2.0); WBC,Urine 12 /hpf (0-5)
[2016-07-17] MEDS: INSULIN LISPRO (humaLOG) 300 UNIT/3 ML VIAL SQ SCH ×3 (07:31→18:07)
--- NOTE | 2016-07-17 08:12 | CONS ---
DATE OF CONSULTATION: 07/16/2016 REASON FOR CONSULTATION: Infection and antibiotic recommendation. HISTORY OF PRESENT ILLNESS: The patient is a 66-year-old female who was brought into the ER by the EMS on 07/13/16 with chief complaints of sudden onset of shortness of breath. Apparently her breathing started getting worse in the morning of the June 2016. The patient was given Solu-Medrol and lasix in route to the ER. In the ER the patient remains to be in significantly respiratory distress. The patient did have a chest x-ray suggestive of a bilateral infiltrate and fluid overload. Underlying pneumonia is not excluded. The patient did have an elevated white count 22,000; however, no fever on arrival to the ER. At that time the patient did spike a fever of 100.6. The patient ended up getting intubated and was in the intensive care unit and treated with diuretics in addition to the broad spectrum antibiotics in the form of Vanco and Zosyn. No sputum culture done. Blood cultures came back positive. The UA was slightly positive with the urine culture showing E. coli and Jennifer species albicans. Blood culture showing coagulase-negative Staph and Streptococcus mitis oralis. I was asked to see the patient for further recommendation regarding antibiotic therapy. Patient has been successfully extubated yesterday. Has been transferred out of the unit. The patient remains to be afebrile. She is breathing more comfortably. The patient denies having any chest pain. Occasional cough but not bringing up sputum. No abdominal pain. Denies having diarrhea. No burning or frequency of urine. REVIEW OF SYSTEMS: CONSTITUTIONAL: Positive for weakness and a low grade fever but not fever has been recorded since then. EYES: No complaint. ENT: No complaint. RESPIRATORY: As per HPI. CARDIOVASCULAR: As per HPI. GENITOURINARY: No complaint. GASTROINTESTINAL: No complaint. MUSCULOSKELETAL: No complaint. INTEGUMENTARY: No complaint. PSYCHOLOGICAL: No complaint. ENDOCRINE: No complaint. NEUROLOGICAL: No complaint. PAST MEDICAL HISTORY: Significant for heart failure, COPD, CVA, TIA, diabetes mellitus, hyperlipidemia, hypertension, myocardial infarction, osteoarthritis, fibromyalgia, pneumonia, uterine cancer. PAST SURGICAL HISTORY: PTCA and stent placement, cholecystectomy, D&C and radiation to the pelvis for uterine cancer. SOCIAL HISTORY: Former smoker who quit back in summer of 2014. No drinking or drug use. FAMILY HISTORY: Father with history of drinking, pancreatitis and liver cancer. Mother with history of CVA and TIA. ALLERGIES: HYDRALAZINE, HYDROCODONE AND LISINOPRIL. Medications include the patient is on Tylenol, DuoNeb, Norvasc, aspirin, Lipitor, Coreg, Plavix, Lasix, NovoLog sliding scale, Narcan, Nitro-Bid, nystatin powder, pip-tazobactam, Propofol, IV vancomycin. On examination, blood pressure is 148/56 with a pulse of 72, temperature 98.1. She is 98% on 3-L nasal cannula. General description is an elderly female up in the bed in no distress. No tachypnea or accessory muscle of respiration use. HEENT: Pallor. There is no scleral icterus. Oral mucous membrane is dry. NECK: Trachea central. There is no thyromegaly. LUNGS: Unlabored breathing. Some coarse breath sounds at the base. No wheeze. HEART: S1, S2. Regular rate and rhythm. ABDOMEN: Soft, no tenderness. EXTREMITIES: No edema of feet. SKIN: No rash or mass palpable. NEUROLOGICAL: The patient is awake, alert, oriented x3. Mood and affect normal. LABS: Hemoglobin is 7.5, white count 8.6. Admission white count was 22.7. A BUN 30, creatinine 1.37. Electrolytes have been normal. Lactic acid of 4.3 on admission. Urine was slightly positive. Cloudy urine, small leukocyte esterase and white count. Blood culture with streptococcus mitis oralis and coagulase-negative Staphylococcus. Urine with E. coli. Chest x-ray mentioned above. DIAGNOSTIC IMPRESSION AND PLAN: 1. Patient admitted to hospital with acute respiratory failure, vent dependent, which is likely multifactorial and is more likely secondary to underlying fluid overload and congestive heart failure; however, underlying pneumonia not entirely excluded. The patient has been in and out of the hospital is broadly covered for resistant pathogens as well as gram-negative pathogen. 2. The patient with a urinary tract infection with urine showing both an Escherichia coli and Jennifer. 3. Patient with positive blood culture showing 2 different pathogens including coagulase-negative Staph and streptococcus oralis mitis more likely a skin contamination rather than true pathogen. PLAN: 1. Blood cultures x1 to make sure there is no evidence of any persistent bacteremia. 2. We will repeat a UA and culture. 3. Obtain sputum for gram-stain culture and sensitivity. 4. Continue patient on vancomycin pharmacy to dose, target trough of 15, as well as Zosyn while waiting for repeat culture to finalize. 5. Will follow up on the clinical condition and cultures to further adjust the medication if needed. Family present at beside. Their questions and concerns were answered. [place]
[2016-07-17] MEDS: IPRATROPIUM-ALBUTEROL 3 ML NEB INHALATION SCH ×4 (09:11→19:39)
[2016-07-17] MEDS: ASPIRIN 81 MG CHEW PO SCH (09:15)
[2016-07-17] MEDS: amLODIPine 5 MG TAB PO SCH (09:15)
[2016-07-17] MEDS: CARVEDILOL 12.5 MG TAB PO SCH ×2 (09:15→21:49)
[2016-07-17] MEDS: PANTOPRAZOLE 40 MG/10 ML VIAL IV SCH (09:16)
[2016-07-17] MEDS: ACETAMINOPHEN TAB 325 MG TAB PO PRN ×3 (09:23→21:49)
[2016-07-17] MEDS: SODIUM CHLORIDE 0.9% 1,000 ML IV SCH (09:23)
--- NOTE | 2016-07-17 10:14 | PN ---
DATE OF SERVICE: 07/16/2016 PRESENTING COMPLAINT: Short of breath. INTERVAL HISTORY: This patient was admitted with multiple medical problems, admitted with CHF exacerbation, pneumonia. Blood cultures have been positive as well as the urine culture. Patient is moved out of the ICU. at the bedside. Patient eating about 30% of her normal diet she says. Sitting up. The patient is on 3 liters of oxygen. Overall feeling better. Review of systems done for constitutional, cardiovascular, GI, pulmonary; relevant findings as above. Current medications include insulin drip, IV Zosyn and vancomycin. On examination, temperature 97.7, pulse 92, respirations 18, blood pressure 182/77, before that 148/66, pulse 100% on 3 liters. GENERAL APPEARANCE: Sitting up in bed, not in distress. EYES: Pupils equal. Conjunctivae normal. NECK: JVD not raised. Mass not palpable. RESPIRATORY: Effort normal. LUNGS: Improved air entry. CARDIOVASCULAR: First and second sounds normal. No edema. ABDOMEN: Soft, nontender. Liver and spleen not palpable. PSYCHIATRY: Alert and oriented. Mood and affect normal. NEUROLOGICAL: Chronic weakness in the right arm. INVESTIGATIONS: Accu-Cheks are noted. White count 8.6, hemoglobin 7.5. Potassium 3.6, BUN 42, creatinine 1.80. Blood culture from 07/13 is growing Streptococcus mitis and coagulase-negative Staph. Also urine culture growing Escherichia coli. ASSESSMENT: 1. Acute hypoxic respiratory failure, present on admission, from congestive heart failure and possible pneumonia with clinical improvement. 2. Chronic diverticulosis. 3. 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 4. Acute on chronic congestive heart failure exacerbation from diastolic dysfunction, ejection fraction 55% from underlying coronary artery disease, present on admission. 5. Essential hypertension. 6. Right arm weakness from old stroke. 7. Diabetes mellitus type 2, chronically on insulin, uncontrolled, currently on a drip. 8. Obesity, body mass index more than 35. 9. Coronary artery disease stent to the left anterior descending and circ in January 2016. 10. Hyperlipidemia. 11. Chronic obstructive pulmonary disease, in an ex-smoker, acute exacerbation. 12. Fibromyalgia. 13. Primary osteoarthritis in multiple joints, bilateral. 14. Chronic urinary stress incontinence. 15. Depression, not otherwise specified. 16. Possible basilar pneumonia suspect ( ). 17. Sepsis on presentation with blood cultures positive for Streptococcus mitis/oralis. PLAN: Overall, the patient is doing better. Oxygen scaled back. Patient is on insulin drip. Hopefully can switch the patient over to Lantus tonight. ID has been consulted in view of the positive cultures. Care was discussed with the patient and the .
[2016-07-17] MEDS: NYSTATIN 100,000 UNIT/GM POWD 15 GM TOPICAL SCH ×2 (11:42→23:55)
--- NOTE | 2016-07-17 11:55 | P.PN ---
Subjective Principal diagnosis: Acute hypoxic respiratory failure secondary to diastolic congestive heart failure This is a 66-year-old female patient who follows with Dr. Maddison Hermosillo as her primary care physician. She has a past medical history of diastolic congestive heart failure with preserved left ventricular systolic function with estimated ejection fraction 55-60%, recent vaginal bleeding secondary to uterine polyp status post D&C, chronic kidney disease stage III, diabetes moist type II, coronary artery disease with stent placements 5, hypertension, hyperlipidemia, pulmonary hypertension, history of femoral pseudoaneurysm, CVA, morbid obesity, chronic obstructive pulmonary disease with a significant smoking history however quit in May 2015, fibromyalgia, gastric cancer. She was recently discharged from here on 07/04/2016 after an acute exacerbation of her chronic diastolic congestive heart failure. She also had issues with vaginal bleeding at that time. The patient is needing to stay on her Plavix secondary to her stent placements. According to the patient's family she had been doing fairly well at home until this morning. She woke up with significant shortness of breath cough and congestion. EMS was called and she was given Solu-Medrol and updraft treatment in route. Upon arrival to the emergency room she became continue with severe respiratory distress requiring intubation and mechanical ventilatory support. She is seen in consultation in the ER. Her chest x-ray does reveal evidence of fluid volume overload/ congestive heart failure. Difficult to rule out any underlying airspace disease and possible healthcare acquired pneumonia/sepsis as she was recently discharged. Her current vent settings are assist-control at a rate of 16, tidal volume 500, FiO2 50% and a PEEP of 5. Initial blood class is on 100% FiO2 revealed a pO2 of 352, pCO2 57, pH 7.22. Initial white count 22.7, lactic acid 4.3, proBNP 1990, troponin 0.013, d-dimer 0.91, creatinine 1.37. Reevaluated today on 07/14/2016, patient remains on mechanical ventilations, however her ABG is significantly improved with a pO2 of 133 pCO2 of 39 pH of 7.39 patient is on 35% FiO2 her chest x-ray was reviewed and it seems significantly improved patient responded well to Lasix drip. Her hemoglobin however is low at 7.6, it was 10.1 on admission yesterday. We will do further investigation into the hemoglobin drop, and we'll recheck it. If it is below 7 , then the patient will need to be transfused. Metabolic profile was reviewed, BUN is up to 44 creatinine is 1.80. I believe the patient must have sustained acute kidney injury, most likely a cardiorenal syndrome type of picture. Preliminary report on the blood culture is positive for gram-positive cocci in pairs, hence the patient was given empirically vancomycin and Zosyn. Final report on the blood culture is pending. Reevaluated today on 07/15/2016, patient was extubated yesterday, and she tolerated the extubation well so far. Chest x-ray continues to show significant improvement, small bilateral pleural effusions were noted. Patient is becoming relatively dehydrated, hence I stopped her IV Lasix drip, and I will switch her to IV push Lasix. Her labs were reviewed, hemoglobin is 7.5, her BUN is elevated at 45, and creatinine is 1.90. Her urine is positive for E. coli and yeast species, blood is positive for Streptococcus mitis/oralis which can cause infective endocarditis, ideal drug of choice would be a clindamycin, however I will go ahead and recommended infectious disease consultation. May have to consider echocardiogram on this patient and repeat blood cultures. Patient received Zosyn and vancomycin upon admission. Patient was reevaluated today on 07/16/2016, she is presently on selective, continues to tolerate extubation well, she is presently on nasal cannula, and feels much better. Breathing a lot easier. Denies any cough no wheezing no shortness of breath. Hemoglobin remains low 7.5 but stable, WBC count is 8.6. Chest x-ray continues to show improving of lung markings and small left pleural effusion is suspected. Patient was seen again on 07/17/2016, remains on selective, monitor bed, patient is doing relatively well. Hardly any shortness of breath, no cough, no wheezing , no chest pain. Remains on diuretics, tolerating diuresis quite well. Hemoglobin remains low at 7.4, patient did not require any blood transfusion since her admission. Patient does have history of chronic anemia related to previous history of uterine issues. Being followed by gynecology, and she will eventually need IV iron on outpatient basis. Her electrolytes are normal, BUN is down to 42 creatinine is 1.69. Much improved compared to her presentation. Chest x-ray from yesterday showed mild left basilar atelectasis, and improved lung markings at the right lung base. Objective - Vital Signs Vital signs: Vital Signs Temp 98.1 F 07/17/16 04:00 Pulse 80 07/17/16 09:21 Resp 16 07/17/16 04:00 BP 169/71 07/17/16 04:00 Pulse Ox 99 07/17/16 04:00 Intake & Output 07/16/16 07/17/16 07/17/16 18:59 06:59 18:59 Intake Total 95.774 665.689 Output Total 1350 Balance 95.774 -684.311 Weight 94.6 kg Intake: IV 50 650 Piperacillin-Tazobactam 3 50 50 .375 gm In Dextrose/Water 1 50ml.bag @ 12.5 mls/hr IVPB Q8HR [facility] Rx#: [id number] Sodium Chloride 0.9% 1, 600 000 ml @ 75 mls/hr IV . [id number] [facility] Rx#:[id number] Intake, IV Titration 45.774 15.689 Amount Insulin Regular 100 unit 45.774 15.689 In Sodium Chloride 0.9% 100 ml @ Titrate IV .Q0M [facility] Rx#:[id number] Output: Urine 1350 Other: Voiding Method Bedside Commode # Voids 200 1 # Bowel Movements 2 - Exam GENERAL EXAM: Morbidly obese. Off mechanical ventilation, on nasal cannula, in no distress. HEAD: Normocephalic. EYES: Normal reaction of pupils, equal size. NOSE: Unremarkable THROAT: Clear NECK: No masses, no JVD. CHEST: No chest wall deformity. LUNGS: Diminished breath sounds at the bases, minimal crackles noted CVS: S1 and S2 normal with no audible murmurs, regular rhythm. ABDOMEN: Obese, soft. Extremities: There is trace peripheral edema. No clubbing, no cyanosis. Peripheral pulses are intact. Neurologic exam: No gross focal deficit. - Labs CBC & Chem 7: 07/17/16 05:52 07/17/16 05:52 Labs: Abnormal Lab Results - Last 24 Hours (Table) 07/16/16 07/16/16 07/16/16 Range/Units 13:18 15:12 16:57 RBC (3.80-5.40) m/uL Hgb (11.4-16.0) gm/dL Hct (34.0-46.0) % MCV (80.0-100.0) fL MCH (25.0-35.0) pg MCHC (31.0-37.0) g/dL RDW (11.5-15.5) % BUN (7-17) mg/dL Creatinine (0.52-1.04) mg/dL Glucose (74-99) mg/dL POC Glucose (mg/dL) 187 H 200 H 181 H (75-99) mg/dL Phosphorus (2.5-4.5) mg/dL Urine Protein (Negative) Urine Blood (Negative) Ur Leukocyte Esterase (Negative) Urine RBC (0-5) /hpf Urine WBC (0-5) /hpf Urine WBC Clumps (None) /hpf Hyaline Casts (0-2) /lpf Urine Mucus (None) /hpf Urine Yeast (Budding) (None) /hpf 07/16/16 07/16/16 07/17/16 Range/Units 19:06 20:49 05:52 RBC 3.21 L (3.80-5.40) m/uL Hgb 7.4 L (11.4-16.0) gm/dL Hct 23.9 L (34.0-46.0) % MCV 74.4 L (80.0-100.0) fL MCH 23.0 L (25.0-35.0) pg MCHC 30.9 L (31.0-37.0) g/dL RDW 16.3 H (11.5-15.5) % BUN (7-17) mg/dL Creatinine (0.52-1.04) mg/dL Glucose (74-99) mg/dL POC Glucose (mg/dL) 205 H 177 H (75-99) mg/dL Phosphorus (2.5-4.5) mg/dL Urine Protein (Negative) Urine Blood (Negative) Ur Leukocyte Esterase (Negative) Urine RBC (0-5) /hpf Urine WBC (0-5) /hpf Urine WBC Clumps (None) /hpf Hyaline Casts (0-2) /lpf Urine Mucus (None) /hpf Urine Yeast (Budding) (None) /hpf 07/17/16 07/17/16 07/17/16 Range/Units 05:52 05:54 06:45 RBC (3.80-5.40) m/uL Hgb (11.4-16.0) gm/dL Hct (34.0-46.0) % MCV (80.0-100.0) fL MCH (25.0-35.0) pg MCHC (31.0-37.0) g/dL RDW (11.5-15.5) % BUN 42 H (7-17) mg/dL Creatinine 1.69 H (0.52-1.04) mg/dL Glucose 223 H (74-99) mg/dL POC Glucose (mg/dL) 244 H (75-99) mg/dL Phosphorus 5.0 H (2.5-4.5) mg/dL Urine Protein 1+ H (Negative) Urine Blood Small H (Negative) Ur Leukocyte Esterase Small H (Negative) Urine RBC 20 H (0-5) /hpf Urine WBC 12 H (0-5) /hpf Urine WBC Clumps Rare H (None) /hpf Hyaline Casts 4 H (0-2) /lpf Urine Mucus Rare H (None) /hpf Urine Yeast (Budding) Occasional H (None) /hpf Assessment and Plan Plan: #1 status post Acute hypoxic and hypercapnic respiratory failure, multifactorial in a patient with acute exacerbation of diastolic congestive heart failure, suspected healthcare acquired pneumonia, obesity/hypoventilation syndrome, acute exacerbation of chronic obstructive pulmonary disease. Patient required intubation and mechanical ventilation for about 24 hours. Responded quite well to Lasix drip. And this was eventually changed to Lasix IV push every 8 hours. #2 Acute exacerbation of diastolic congestive heart failure. Preserved left ventricular systolic function with estimated ejection fraction 55-60% on echo 06/30/2016. #3 Lactic acidosis and leukocytosis with possible sepsis . Positive blood cultures and urine cultures as noted above, infectious disease consultation was initiated. Patient remains on Zosyn and vancomycin, as recommended by infectious disease on the case. Repeat blood cultures were ordered by infectious disease. #4 Acute exacerbation chronic obstructive pulmonary disease. #5 Morbid obesity with suspected obesity/hypoventilation syndrome. #6 Recent discharge for acute exacerbation diastolic congestive heart failure. #7 Recent history of vaginal bleeding requiring dilatation and curettage. History of uterine cancer status post radiation. #8 History of coronary artery disease with previous myocardial infarction status post stent placements 5. Most recently in January 2016 at which time she received stenting x 3 to the proximal, mid and distal RCA. Maintained on Plavix. 9 History of CVA/TIA 04/15/2015 with profound weakness on the right side. #10 Diabetes fallon, type II. #11 Hypertension. #12 Hyperlipidemia. #13 Acute on chronic renal failure. Current creatinine 1.37. #14 Acute on chronic anemia. Current hemoglobin 7.5 hence we'll monitor her hemoglobin, and have it rechecked. Recommendation: Patient was extubated on 07/14/2016, tolerated the extubation quite well, will continue diuretics consider discharge planning in the next 24- 48 hours. Once the patient is cleared for discharge by cardiology and by infectious disease on the case. Time with Patient: Less than 30
[2016-07-17 12:18] LABS: Glucose,Whole Blood 214 mg/dL (75-99)
--- NOTE | 2016-07-17 16:43 | P.PN ---
Subjective Patient is doing better. She denies any undue shortness of breath. She has no chest discomfort. She sitting up comfortably in bed. No cough no wheezing she is tolerating diuresis well. Hemoglobin is low secondary to chronic anemia BUN 42 creatinine 1.69 On examination her blood pressures 160/70 mmHg respirations 16 pulse rate 80 afebrile Breath sounds are reduced bilaterally No rhonchi no crackles Heart sounds S1 and S2 are normal Abdomen is soft nontender Extremities are warm, no edema Impression COPD exacerbation Morbid obesity Diastolic congestive heart failure Adult-onset diabetes hypertension Acute and chronic renal failure Preserved LV systolic function Suggest Maximizing antihypertensive therapy and continue diuresis Objective - Vital Signs Vital signs: Vital Signs Temp 97.4 F L 07/17/16 12:00 Pulse 80 07/17/16 16:14 Resp 18 07/17/16 12:00 BP 130/62 07/17/16 12:00 Pulse Ox 98 07/17/16 16:14 Intake & Output 07/16/16 07/17/16 07/17/16 18:59 06:59 18:59 Intake Total 95.774 665.689 Output Total 1350 Balance 95.774 -684.311 Weight 94.6 kg Intake: IV 50 650 Piperacillin-Tazobactam 3 50 50 .375 gm In Dextrose/Water 1 50ml.bag @ 12.5 mls/hr IVPB Q8HR [facility] Rx#: [id number] Sodium Chloride 0.9% 1, 600 000 ml @ 75 mls/hr IV . [id number] [facility] Rx#:[id number] Intake, IV Titration 45.774 15.689 Amount Insulin Regular 100 unit 45.774 15.689 In Sodium Chloride 0.9% 100 ml @ Titrate IV .Q0M [facility] Rx#:[id number] Output: Urine 1350 Other: Voiding Method Bedside Commode Bedside Commode # Voids 200 1 # Bowel Movements 2 - Labs CBC & Chem 7: 07/17/16 05:52 07/17/16 05:52 Labs: Abnormal Lab Results - Last 24 Hours (Table) 07/16/16 07/16/16 07/16/16 Range/Units 16:57 19:06 20:49 RBC (3.80-5.40) m/uL Hgb (11.4-16.0) gm/dL Hct (34.0-46.0) % MCV (80.0-100.0) fL MCH (25.0-35.0) pg MCHC (31.0-37.0) g/dL RDW (11.5-15.5) % BUN (7-17) mg/dL Creatinine (0.52-1.04) mg/dL Glucose (74-99) mg/dL POC Glucose (mg/dL) 181 H 205 H 177 H (75-99) mg/dL Phosphorus (2.5-4.5) mg/dL Urine Protein (Negative) Urine Blood (Negative) Ur Leukocyte Esterase (Negative) Urine RBC (0-5) /hpf Urine WBC (0-5) /hpf Urine WBC Clumps (None) /hpf Hyaline Casts (0-2) /lpf Urine Mucus (None) /hpf Urine Yeast (Budding) (None) /hpf 07/17/16 07/17/16 07/17/16 Range/Units 05:52 05:52 05:54 RBC 3.21 L (3.80-5.40) m/uL Hgb 7.4 L (11.4-16.0) gm/dL Hct 23.9 L (34.0-46.0) % MCV 74.4 L (80.0-100.0) fL MCH 23.0 L (25.0-35.0) pg MCHC 30.9 L (31.0-37.0) g/dL RDW 16.3 H (11.5-15.5) % BUN 42 H (7-17) mg/dL Creatinine 1.69 H (0.52-1.04) mg/dL Glucose 223 H (74-99) mg/dL POC Glucose (mg/dL) 244 H (75-99) mg/dL Phosphorus 5.0 H (2.5-4.5) mg/dL Urine Protein (Negative) Urine Blood (Negative) Ur Leukocyte Esterase (Negative) Urine RBC (0-5) /hpf Urine WBC (0-5) /hpf Urine WBC Clumps (None) /hpf Hyaline Casts (0-2) /lpf Urine Mucus (None) /hpf Urine Yeast (Budding) (None) /hpf 07/17/16 07/17/16 Range/Units 06:45 11:54 RBC (3.80-5.40) m/uL Hgb (11.4-16.0) gm/dL Hct (34.0-46.0) % MCV (80.0-100.0) fL MCH (25.0-35.0) pg MCHC (31.0-37.0) g/dL RDW (11.5-15.5) % BUN (7-17) mg/dL Creatinine (0.52-1.04) mg/dL Glucose (74-99) mg/dL POC Glucose (mg/dL) 214 H (75-99) mg/dL Phosphorus (2.5-4.5) mg/dL Urine Protein 1+ H (Negative) Urine Blood Small H (Negative) Ur Leukocyte Esterase Small H (Negative) Urine RBC 20 H (0-5) /hpf Urine WBC 12 H (0-5) /hpf Urine WBC Clumps Rare H (None) /hpf Hyaline Casts 4 H (0-2) /lpf Urine Mucus Rare H (None) /hpf Urine Yeast (Budding) Occasional H (None) /hpf Microbiology - Last 24 Hours (Table) 07/16/16 10:44 Blood Culture - Preliminary Blood No Growth after 24 hours 07/17/16 06:45 Urine Culture - Preliminary Urine,Clean Catch
[2016-07-17 16:50] LABS: Glucose,Whole Blood 243 mg/dL (75-99)
[2016-07-17] MEDS ORDERED: INSULIN GLARGINE 100 UNIT/ML 10 ML VIAL SQ SCH (21:00)
[2016-07-17 21:17] LABS: Glucose,Whole Blood 244 mg/dL (75-99)
[2016-07-17] MEDS: ATORVASTATIN 80 MG TAB PO SCH (21:48)
[2016-07-17] MEDS: CLOPIDOGREL 75 MG TAB PO SCH (21:49)
[2016-07-17] MEDS: CHOLESTYRAMINE (WITH SUGAR) 4 GM PACKET PO SCH (21:49)
[2016-07-18 06:29] LABS: Anisocytosis Slight; Basophils % (A) 0 %; CHCM 30.5; Eosinophils # (A) 0.4 k/uL (0-0.7); Eosinophils % (A) 6 %; HDW 3.95; HGB 7.7 gm/dL (11.4-16.0); Hypochromasia Marked; Luc # (Auto) 0.12; Luc % (Auto) 2; Lymphocytes # (A) 1.2 k/uL (1.0-4.8); Lymphocytes % (A) 16 %; MCH 23.4 pg (25.0-35.0); MCHC 30.9 g/dL (31.0-37.0); MCV 75.6 fL (80.0-100.0); Mean Platelet Volume 7.9; Microcytosis Slight; Monocytes # (A) 0.4 k/uL (0-1.0); Monocytes % (A) 5 %; Neutrophils # (A) 5.5 k/uL (1.3-7.7); Neutrophils % (A) 71 %; Poikilocytosis Slight; RBC 3.31 m/uL (3.80-5.40); RDW 16.1 % (11.5-15.5); WBC 7.7 k/uL (3.8-10.6); WBC (Perox) 7.81
[2016-07-18] MEDS: ONDANSETRON 4 MG/2 ML VIAL IVP PRN (06:32)
[2016-07-18 06:39] LABS: Calcium 8.8 mg/dL (8.4-10.2); Phosphorous 4.7 mg/dL (2.5-4.5)
[2016-07-18 06:58] LABS: Glucose,Whole Blood 219 mg/dL (75-99)
[2016-07-18] MEDS: INSULIN LISPRO (humaLOG) 300 UNIT/3 ML VIAL SQ SCH ×8 (07:39→22:44)
[2016-07-18] MEDS: amLODIPine 10 MG TAB PO SCH (08:17)
[2016-07-18] MEDS: ASPIRIN 81 MG CHEW PO SCH (08:17)
[2016-07-18] MEDS: CARVEDILOL 12.5 MG TAB PO SCH ×2 (08:18→17:28)
[2016-07-18] MEDS: CHOLESTYRAMINE (WITH SUGAR) 4 GM PACKET PO SCH ×2 (08:18→22:49)
[2016-07-18] MEDS: FUROSEMIDE 40 MG TAB PO SCH ×2 (08:18→15:27)
[2016-07-18] MEDS: NYSTATIN 100,000 UNIT/GM POWD 15 GM TOPICAL SCH ×2 (08:19→22:45)
[2016-07-18] MEDS: PANTOPRAZOLE 40 MG/10 ML VIAL IV SCH (08:19)
[2016-07-18] MEDS: ACETAMINOPHEN TAB 325 MG TAB PO PRN ×2 (08:23→22:43)
[2016-07-18] MEDS: IPRATROPIUM-ALBUTEROL 3 ML NEB INHALATION SCH ×4 (08:43→20:28)
--- NOTE | 2016-07-18 10:14 | PN ---
DATE OF SERVICE: 07/17/2016 PRESENTING COMPLAINT: Short of breath. INTERVAL HISTORY: Patient was admitted with CHF exacerbation, pneumonia. Blood cultures have been positive and so have the urine culture. Patient is currently eating better. Patient is off the oxygen, sitting up on the bed. is at the bedside. Review of systems done for constitutional, cardiovascular, GI, pulmonary; relevant finding as above. Current medications are reviewed that include IV Zosyn. On examination, temperature 97.4, pulse 64, respiration 18, blood pressure 130/62, pulse ox 98% on 2 L. GENERAL APPEARANCE: Sitting up, a bit more comfortable, smiling. EYES: Pupils equal, conjunctivae normal. NECK: JVD not raised. Mass not palpable. Respiratory effort normal. LUNGS: Improved air entry. CARDIOVASCULAR: First and second sounds normal. No edema. ABDOMEN: Soft, nontender. Liver and spleen not palpable. PSYCHIATRY: Alert and oriented x3, mood and affect normal. NEUROLOGICAL: Chronic weakness in the right arm. INVESTIGATIONS: White count 7.1, hemoglobin 7.4. Potassium 3.7. BUN 42, creatinine 1.69. Accu-Cheks are noted. ASSESSMENT: 1. Acute hypoxic respiratory failure, present at admission, from congestive heart failure and possible pneumonia with clinical improvement. 2. Chronic diverticulosis. 3. 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 4. Acute on chronic congestive heart failure exacerbation from diastolic dysfunction, ejection fraction 55%, from underlying coronary artery disease, present on admission. 5. Essential hypertension. 6. Right arm weakness from old stroke. 7. Diabetes mellitus type 2, chronically on insulin, uncontrolled, doing better now. 8. Obesity, body mass index of more than 35. 9. Coronary artery disease, stent to the left anterior descending artery and circumflex in January of 2016. 10. Hyperlipidemia. 11. Chronic obstructive pulmonary disease in an ex-smoker, acute exacerbation on presentation, now improved. 12. Fibromyalgia. 13. Primary osteoarthritis in multiple joints, bilateral. 14. Chronic urinary stress incontinence. 15. Depression, not otherwise specified. 16. Possible basal pneumonia. 17. Sepsis on presentation with blood cultures positive for Streptococcus mitis/oralis. 18. Possible urinary tract infection on presentation. PLAN: Continue current medication, treatment plan. Care was discussed with the patient and at the bedside. Will increase patient's Lantus tonight as patient's appetite is going up. Sugars are doing better. Will follow.
[2016-07-18] MEDS: PIPERACILLIN-TAZOBACTAM 3.375 GM in DEXTROSE/WATER 1 50ML.BAG IVPB SCH ×3 (10:17→22:56)
[2016-07-18 11:44] VITALS: BMI 38.9
[2016-07-18 11:53] LABS: Glucose,Whole Blood 214 mg/dL (75-99)
--- NOTE | 2016-07-18 12:07 | P.PN ---
Subjective This is a pleasant 66-year-old female who follows regularly with Dr. Ricci in the office. She has a known history of coronary artery disease with prior stent placement of the mid left main in 2014, most recently she underwent successful stenting of the mid proximal and distal RCA in January of last year, history of anemia, history of recent vaginal bleed and D&C, diabetes, hypertension, hyperlipidemia, patient was recently in the hospital earlier this month with a vaginal bleed, she underwent a D&C at that time. Prior to that patient did have an admission to the hospital with a GI bleed, she underwent an EGD and colonoscopy, EGD revealed gastritis and duodenitis, colonoscopy revealed sigmoid diverticulosis without any active bleeding, external hemorrhoids with acute inflammation, internal hemorrhoids. She was readmitted to the hospital on this occasion with sudden onset of shortness of breath. Admitted to the intensive care unit on admission required intubation and mechanical ventilatory support. She is now being followed on the telemetry unit. Overall she states her breathing is much improved, complaints of feeling extremely weak and achy all over. Currently on by mouth Lasix. Sitting up in the chair at the time of my examination today, overall feeling much better. Objective - Vital Signs Vital signs: Vital Signs Temp 98.4 F 07/18/16 11:36 Pulse 81 07/18/16 11:36 Resp 18 07/18/16 11:36 BP 170/70 07/18/16 11:36 Pulse Ox 96 07/18/16 11:36 Intake & Output 07/17/16 07/18/16 07/18/16 18:59 06:59 18:59 Intake Total 50 240 Output Total 550 Balance -500 240 Weight 96.7 kg 96.7 kg Intake: IV 50 Piperacillin-Tazobactam 3 50 .375 gm In Dextrose/Water 1 50ml.bag @ 12.5 mls/hr IVPB Q8HR [facility] Rx#: [id number] Oral 240 Output: Urine 550 Other: Voiding Method Bedside Commode Bedside Commode Bedside Commode # Voids 1 - Exam PHYSICAL EXAMINATION: HEENT: Head is atraumatic, normocephalic. Pupils equal, round. Neck is supple. There is no elevated jugular venous pressure. HEART EXAMINATION: Heart S1, S2 normal. No murmur or gallop heard. CHEST EXAMINATION: Lungs are clear with fine crackles to posterior bases. ABDOMEN: Soft, nontender. Bowel sounds are heard. No organomegaly noted. EXTREMITIES: 2+ peripheral pulses with no evidence of peripheral edema and no calf tenderness noted. NEUROLOGIC patient is awake, alert and oriented -3. - Labs CBC & Chem 7: 07/18/16 06:02 07/18/16 06:02 Labs: Abnormal Lab Results - Last 24 Hours (Table) 07/17/16 07/17/16 07/17/16 Range/Units 11:54 16:49 20:51 RBC (3.80-5.40) m/uL Hgb (11.4-16.0) gm/dL Hct (34.0-46.0) % MCV (80.0-100.0) fL MCH (25.0-35.0) pg MCHC (31.0-37.0) g/dL RDW (11.5-15.5) % Carbon Dioxide (22-30) mmol/L BUN (7-17) mg/dL Creatinine (0.52-1.04) mg/dL Glucose (74-99) mg/dL POC Glucose (mg/dL) 214 H 243 H 244 H (75-99) mg/dL Phosphorus (2.5-4.5) mg/dL 07/18/16 07/18/16 07/18/16 Range/Units 06:02 06:02 06:19 RBC 3.31 L (3.80-5.40) m/uL Hgb 7.7 L (11.4-16.0) gm/dL Hct 25.0 L (34.0-46.0) % MCV 75.6 L (80.0-100.0) fL MCH 23.4 L (25.0-35.0) pg MCHC 30.9 L (31.0-37.0) g/dL RDW 16.1 H (11.5-15.5) % Carbon Dioxide 31 H (22-30) mmol/L BUN 40 H (7-17) mg/dL Creatinine 1.88 H (0.52-1.04) mg/dL Glucose 209 H (74-99) mg/dL POC Glucose (mg/dL) 219 H (75-99) mg/dL Phosphorus 4.7 H (2.5-4.5) mg/dL 07/18/16 Range/Units 11:31 RBC (3.80-5.40) m/uL Hgb (11.4-16.0) gm/dL Hct (34.0-46.0) % MCV (80.0-100.0) fL MCH (25.0-35.0) pg MCHC (31.0-37.0) g/dL RDW (11.5-15.5) % Carbon Dioxide (22-30) mmol/L BUN (7-17) mg/dL Creatinine (0.52-1.04) mg/dL Glucose (74-99) mg/dL POC Glucose (mg/dL) 214 H (75-99) mg/dL Phosphorus (2.5-4.5) mg/dL Microbiology - Last 24 Hours (Table) 07/16/16 10:44 Blood Culture - Preliminary Blood No Growth after 24 hours 07/17/16 06:45 Urine Culture - Preliminary Urine,Clean Catch Assessment and Plan Plan: Assessment and plan #1 diastolic congestive heart failure acute on chronic #2 acute hypoxic and hypercapnic respiratory failure,suspected acquired pneumonia, hypoventilation syndrome, acute exacerbation of COPD. #3 leukocytosis with possible sepsis #4 morbid obesity #5 recent history of vaginal bleeding requiring a D&C, history of uterine cancer. #6 known history of coronary artery disease with prior LAD and RCA stents, most recent stent was in January of last year, patient continues to be on aspirin and Plavix #7 hypertension #8 hyperlipidemia #9 diabetes #10 Anemia Plan We will keep the patient on the current dose of by mouth Lasix. She may be able to be discharged from cardiology's perspective to follow-up with Dr. Ricci in the office post discharge.She has been recommended by Dr. Kim to have a study done at some point post discharge as well. DNP note has been reviewed, I agree with a documented findings and plan of care. Patient was seen and examined.
--- NOTE | 2016-07-18 12:36 | PN ---
DATE OF SERVICE: 07/17/2016 REASON FOR FOLLOW UP: Pneumonia, urinary tract infection and positive blood culture. INTERVAL HISTORY: The patient is afebrile. The patient's overall breathing has improved. The cough has decreased in intensity. Less productive. No hemoptysis. Patient denies any chest pain. No abdominal pain. The patient is complaining of multiple loose stools with antibiotics. On examination, blood pressure is 170/72, pulse of 65, temperature 98.4, 100% on room air. GENERAL DESCRIPTION: An elderly female, up in the bed in no distress. RESPIRATORY SYSTEM: Unlabored breathing with decreased breath sounds at the bases. HEART: S1, S2 regular. ABDOMEN: Soft, no tenderness. EXTREMITIES: No edema of the feet. LABS: Hemoglobin is 7.4, white count 7.1, BUN of 42, creatinine 1.65. Repeat urine negative DIAGNOSTIC IMPRESSION AND PLAN: 1. Patient presented to the hospital with difficulty in breathing with acute respiratory failure requiring vent support with likely fluid overload. Possibly with complications of pneumonia. Blood culture with coagulase negative staph and streptococcus , likely a contamination. Repeat has been negative. We will discontinue the vancomycin. Currently on Zosyn, that will be continued, switching to oral at time of discharge. 2. Diarrhea. More likely antibiotic associated, clinically doubt C-dif colitis. We will add Questran for symptomatic relief. [facility]
[2016-07-18] MEDS ORDERED: CARVEDILOL 12.5 MG TAB PO STA (14:54)
--- NOTE | 2016-07-18 15:07 | P.PN ---
Subjective Principal diagnosis: Acute hypoxic respiratory failure secondary to diastolic congestive heart failure This is a pleasant 66-year-old female patient who follows with Dr. Maddison Hermosillo as her primary care physician. She has a history of diastolic congestive heart failure with preserved left ventricular systolic function testing ejection fraction 55-60%. She has has a history of recent vaginal bleeding secondary to uterine polyps status post D&C, chronic kidney disease stage III, diabetes mellitus type 2, coronary disease with previous stent placements 5, hypertension, hyperlipidemia, pulmonary hypertension, CVA, morbid obesity, obstructive pulmonary disease. She did quit in May 2015. She did require intubation mechanical ventilatory support. She's been successfully extubated. She is seen again today 07/18/2016 in follow-up. She is out on the selective care unit. She is awake and alert in no acute distress. She is hoping to go home today. She denies any worsening shortness of breath cough or congestion. No chest pain, palpitations dizziness or lightheadedness. Objective - Vital Signs Vital signs: Vital Signs Temp 98.4 F 07/18/16 11:36 Pulse 76 07/18/16 12:37 Resp 18 07/18/16 11:36 BP 170/70 07/18/16 11:36 Pulse Ox 96 07/18/16 11:36 Intake & Output 07/17/16 07/18/16 07/18/16 18:59 06:59 18:59 Intake Total 50 240 Output Total 550 Balance -500 240 Weight 96.7 kg 96.7 kg Intake: IV 50 Piperacillin-Tazobactam 3 50 .375 gm In Dextrose/Water 1 50ml.bag @ 12.5 mls/hr IVPB Q8HR [facility] Rx#: [id number] Oral 240 Output: Urine 550 Other: Voiding Method Bedside Commode Bedside Commode Bedside Commode # Voids 1 - Exam GENERAL EXAM: Morbidly obese. Alert, active, comfortable in no apparent distress. HEAD: Normocephalic. EYES: Normal reaction of pupils, equal size. NOSE: Clear with pink turbinates. THROAT: Crowding of the posterior pharynx. No erythema or exudates. NECK: Short. No masses, no JVD. CHEST: No chest wall deformity. LUNGS: Equal air entry with no crackles, wheeze, rhonchi or dullness. CVS: S1 and S2 normal with no audible murmurs, regular rhythm. ABDOMEN: No hepatosplenomegaly, normal bowel sounds, no guarding or rigidity. Extremities: There is trace peripheral edema. No clubbing, no cyanosis. Peripheral pulses are intact. - Labs CBC & Chem 7: 07/18/16 06:02 07/18/16 06:02 Labs: Abnormal Lab Results - Last 24 Hours (Table) 07/17/16 07/17/16 07/18/16 Range/Units 16:49 20:51 06:02 RBC 3.31 L (3.80-5.40) m/uL Hgb 7.7 L (11.4-16.0) gm/dL Hct 25.0 L (34.0-46.0) % MCV 75.6 L (80.0-100.0) fL MCH 23.4 L (25.0-35.0) pg MCHC 30.9 L (31.0-37.0) g/dL RDW 16.1 H (11.5-15.5) % Carbon Dioxide (22-30) mmol/L BUN (7-17) mg/dL Creatinine (0.52-1.04) mg/dL Glucose (74-99) mg/dL POC Glucose (mg/dL) 243 H 244 H (75-99) mg/dL Phosphorus (2.5-4.5) mg/dL 07/18/16 07/18/16 07/18/16 Range/Units 06:02 06:19 11:31 RBC (3.80-5.40) m/uL Hgb (11.4-16.0) gm/dL Hct (34.0-46.0) % MCV (80.0-100.0) fL MCH (25.0-35.0) pg MCHC (31.0-37.0) g/dL RDW (11.5-15.5) % Carbon Dioxide 31 H (22-30) mmol/L BUN 40 H (7-17) mg/dL Creatinine 1.88 H (0.52-1.04) mg/dL Glucose 209 H (74-99) mg/dL POC Glucose (mg/dL) 219 H 214 H (75-99) mg/dL Phosphorus 4.7 H (2.5-4.5) mg/dL Microbiology - Last 24 Hours (Table) 07/17/16 06:45 Urine Culture - Preliminary Urine,Clean Catch Yeast species 07/16/16 10:44 Blood Culture - Preliminary Blood No Growth after 48 hours Assessment and Plan Plan: Impression: #1 Acute hypoxic and hypercapnic respiratory failure, multifactorial in a patient with acute exacerbation of diastolic congestive heart failure, suspected healthcare acquired pneumonia, obesity/hypoventilation syndrome, acute exacerbation of chronic obstructive pulmonary disease. #2 Acute exacerbation of diastolic congestive heart failure. Preserved left ventricular systolic function with estimated ejection fraction 55-60% on echo 06/30/2016. #3 Lactic acidosis and leukocytosis with possible sepsis, recovered. #4 Acute exacerbation chronic obstructive pulmonary disease. #5 Morbid obesity with suspected obesity/hypoventilation syndrome. #6 Recent discharge for acute exacerbation diastolic congestive heart failure. #7 Recent history of vaginal bleeding requiring dilatation and curettage. History of uterine cancer status post radiation. #8 History of coronary artery disease with previous myocardial infarction status post stent placements 5. Most recently in January 2016 at which time she received stenting x 3 to the proximal, mid and distal RCA. Maintained on Plavix. 9 History of CVA/TIA 04/15/2015 with profound weakness on the right side. #10 Diabetes fallon, type II. #11 Hypertension. #12 Hyperlipidemia. #13 Acute on chronic renal failure. Current creatinine 1.88. #14 Acute on chronic anemia. Current hemoglobin 7.7. Plan: The patient was seen and evaluated by Dr. Eric. She is stable from the pulmonary and critical care standpoint. We'll continue with her current medications. We'll continue to follow make further recommendations based on her clinical status.
[2016-07-18 17:21] LABS: Glucose,Whole Blood 220 mg/dL (75-99)
[2016-07-18 21:25] LABS: Glucose,Whole Blood 184 mg/dL (75-99)
[2016-07-18] MEDS: ATORVASTATIN 80 MG TAB PO SCH (22:43)
[2016-07-18] MEDS: INSULIN GLARGINE 100 UNIT/ML 10 ML VIAL SQ SCH (22:44)
[2016-07-18] MEDS: CLOPIDOGREL 75 MG TAB PO SCH (22:44)
[2016-07-19] MEDS: ACETAMINOPHEN TAB 325 MG TAB PO PRN ×3 (03:58→22:08)
[2016-07-19 06:29] LABS: Anisocytosis Slight; Basophils % (A) 0 %; CHCM 30.4; Eosinophils # (A) 0.4 k/uL (0-0.7); Eosinophils % (A) 5 %; HCT 22.8 % (34.0-46.0); HDW 3.92; HGB 7.1 gm/dL (11.4-16.0); Hypochromasia Marked; Luc # (Auto) 0.14; Luc % (Auto) 2; Lymphocytes # (A) 1.4 k/uL (1.0-4.8); Lymphocytes % (A) 18 %; MCH 23.8 pg (25.0-35.0); MCHC 31.3 g/dL (31.0-37.0); MCV 76.1 fL (80.0-100.0); Microcytosis Slight; Monocytes # (A) 0.4 k/uL (0-1.0); Monocytes % (A) 6 %; Neutrophils # (A) 5.5 k/uL (1.3-7.7); Neutrophils % (A) 70 %; Poikilocytosis Slight; RBC 2.99 m/uL (3.80-5.40); RDW 16.3 % (11.5-15.5); WBC 7.8 k/uL (3.8-10.6); WBC (Perox) 8.21
[2016-07-19 06:36] LABS: Glucose,Whole Blood 184 mg/dL (75-99)
[2016-07-19 06:42] LABS: Calcium 8.5 mg/dL (8.4-10.2); Phosphorous 4.7 mg/dL (2.5-4.5); Potassium 3.8 mmol/L (3.5-5.1)
--- NOTE | 2016-07-19 07:26 | PN ---
DATE OF SERVICE: 07/18/2016 PRESENTING COMPLAINT: Shortness of breath. INTERVAL HISTORY: This patient admitted with CHF exacerbation, pneumonia, also had positive blood and urine cultures. Continues to do much better off the oxygen. Patient's blood pressure is still running on the high side. Diet has improved. Review systems done for constitutional, cardiovascular, GI, pulmonary; relevant findings as above. Current medications are reviewed. On examination, temperature 98.4, pulse 81, respirations 16, blood pressure 170/70, pulse 96% on room air. GENERAL APPEARANCE: Sitting up, comfortable. EYES: Pupils equal. Conjunctivae normal. NECK: JVD not raised. Mass not palpable. RESPIRATORY: Effort increased. LUNGS: Improved air entry. CARDIOVASCULAR: First and second sounds normal. No edema. ABDOMEN: Soft and nontender. Liver and spleen not palpable. PSYCHIATRY: Alert and oriented x3. Mood and affect normal. INVESTIGATIONS: White count 7.7, hemoglobin 7.7. Potassium 4. BUN 40, creatinine 1.88. Accu-Cheks are noted. ASSESSMENT: 1. Acute hypoxic respiratory failure, present on admission from congestive heart failure and possible pneumonia with clinical improvement. 2. Chronic diverticulosis. 3. 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 4. Acute on chronic congestive heart failure exacerbation from diastolic dysfunction, ejection fraction 55% from underlying coronary artery disease prior to admission. 5. Essential hypertension. 6. Right arm weakness from old stroke. 7. Diabetes mellitus type 2, chronically on insulin. Dose has been increased. 8. Obesity, body mass index more than ( ). 9. Coronary artery disease with stent of the left anterior descending and circumflex in January 2016. 10. Hyperlipidemia. 11. Chronic obstructive pulmonary disease in an ex-smoker, acute exacerbation on presentation, now improved. 12. Fibromyalgia. 13. Primary osteoarthritis in multiple joints, bilateral. 14. Chronic urinary stress incontinence. 15. Depression, not otherwise specified. 16. Sepsis on presentation. Blood cultures positive for Streptococcus mitis. 17. Possible urinary tract infection on presentation. 18. Possible pneumonia with gram-negative organism, present on admission. PLAN: Continue current medication and treatment plan. Since blood pressure is remaining uncontrolled, will increase the Coreg to 25 mg twice a day and give an extra dose of 12.5 mg and that was given this afternoon. Will further increase patient's dose of Lantus and Humalog based on the sugars.
[2016-07-19] MEDS: INSULIN LISPRO (humaLOG) 300 UNIT/3 ML VIAL SQ SCH ×7 (07:44→22:07)
[2016-07-19] MEDS: CARVEDILOL 12.5 MG TAB PO SCH ×2 (07:44→16:05)
--- NOTE | 2016-07-19 08:49 | PN ---
DATE OF SERVICE: 07/18/2016 Reason for follow-up: Pneumonia, urinary tract infection and diarrhea. INTERVAL HISTORY: The patient is afebrile. She is feeling better. Her breathing has improved. Denies chest pain. No abdominal pain and diarrhea has resolved. On examination, blood pressure is 193/77 with a pulse of 65, temperature 98. General description is an elderly female up in the chair in no distress. RESPIRATORY SYSTEM: Unlabored breathing with decreased breath sounds at the bases. HEART: S1, S2 regular. Abdomen soft. No tenderness. LABS: Hemoglobin is 10.7, white count is 7.7, BUN of 40, creatinine 1.88. DIAGNOSTIC IMPRESSION AND PLAN: 1. Patient with a component of pneumonia and urinary tract infection for which the patient is currently covered with Zosyn. Continue to finish therapy with oral antibiotics. 2. Patient with diarrhea, antibiotic and seems to be responding to the Questran. If no bowel movement for 24 hours, hold the Questran. Family present at the bedside. All their questions and concerns were answered. ORIVLLE
[2016-07-19] MEDS: IPRATROPIUM-ALBUTEROL 3 ML NEB INHALATION SCH ×4 (08:51→20:10)
[2016-07-19] MEDS: CHOLESTYRAMINE (WITH SUGAR) 4 GM PACKET PO SCH ×2 (09:04→22:07)
[2016-07-19] MEDS: PANTOPRAZOLE 40 MG/10 ML VIAL IV SCH (09:04)
[2016-07-19] MEDS: NYSTATIN 100,000 UNIT/GM POWD 15 GM TOPICAL SCH ×2 (09:04→22:08)
[2016-07-19] MEDS: amLODIPine 10 MG TAB PO SCH (09:05)
[2016-07-19] MEDS: FUROSEMIDE 40 MG TAB PO SCH ×2 (09:05→16:05)
[2016-07-19] MEDS: ASPIRIN 81 MG CHEW PO SCH (09:05)
--- NOTE | 2016-07-19 10:10 | P.PN ---
Subjective Progress note dated 07/19/2016 This is a pleasant 66-year-old female sees Dr. Maddison Hermosillo as her primary doctor. She has a history of diastolic congestive heart failure. She also has a history of recent vaginal bleeding secondary to uterine polyps status post D& C chronic kidney disease diabetes coronary artery disease with previous stent placement 5 hypertension hyperlipidemia pulmonary hypertension CVA morbid obesity obstructive pulmonary disease. The patient is doing relatively well today. She was intubated and mechanically ventilated. She did undergo successful extubation. Likely discharge today. The patient is resting comfortably. No pulmonary complaints at this time. No shortness of breath or cough no wheezing. Objective - Vital Signs Vital signs: Vital Signs Temp 98.1 F 07/19/16 03:50 Pulse 68 07/19/16 09:05 Resp 18 07/19/16 03:50 BP 140/68 07/19/16 03:50 Pulse Ox 92 L 07/19/16 03:50 Intake & Output 07/18/16 07/19/16 07/19/16 18:59 06:59 18:59 Intake Total 570 100 Balance 570 100 Weight 96.7 kg 94 kg Intake: IV 230 100 Piperacillin-Tazobactam 3 100 100 .375 gm In Dextrose/Water 1 50ml.bag @ 12.5 mls/hr IVPB Q8HR [facility] Rx#: [id number] Sodium Chloride 0.9% 1, 130 000 ml @ 75 mls/hr IV . [id number] [facility] Rx#:[id number] Oral 340 Other: Voiding Method Bedside Commode Bedside Commode # Voids 2 - Exam No acute distress, oriented 3. HEENT examination is grossly unremarkable. Mucous membranes are moist. Supple. Full range of motion. No neck vein distention. Cardiovascular examination reveals regular rhythm rate. S1-S2 normal. No murmur. Lung sounds are equal bilaterally. No adventitious lung sounds. Abdomen soft. Extremities are intact. - Labs CBC & Chem 7: 07/19/16 05:52 07/19/16 05:52 Labs: Abnormal Lab Results - Last 24 Hours (Table) 07/18/16 07/18/16 07/18/16 Range/Units 11:31 17:15 21:23 RBC (3.80-5.40) m/uL Hgb (11.4-16.0) gm/dL Hct (34.0-46.0) % MCV (80.0-100.0) fL MCH (25.0-35.0) pg RDW (11.5-15.5) % BUN (7-17) mg/dL Creatinine (0.52-1.04) mg/dL Glucose (74-99) mg/dL POC Glucose (mg/dL) 214 H 220 H 184 H (75-99) mg/dL Phosphorus (2.5-4.5) mg/dL 07/19/16 07/19/16 07/19/16 Range/Units 05:52 05:52 06:35 RBC 2.99 L (3.80-5.40) m/uL Hgb 7.1 L (11.4-16.0) gm/dL Hct 22.8 L (34.0-46.0) % MCV 76.1 L (80.0-100.0) fL MCH 23.8 L (25.0-35.0) pg RDW 16.3 H (11.5-15.5) % BUN 46 H (7-17) mg/dL Creatinine 1.85 H (0.52-1.04) mg/dL Glucose 187 H (74-99) mg/dL POC Glucose (mg/dL) 184 H (75-99) mg/dL Phosphorus 4.7 H (2.5-4.5) mg/dL Microbiology - Last 24 Hours (Table) 07/17/16 06:45 Urine Culture - Preliminary Urine,Clean Catch Yeast species 07/16/16 10:44 Blood Culture - Preliminary Blood No Growth after 48 hours Assessment and Plan (1) Acute respiratory failure Status: Acute (2) Congestive heart failure (CHF) Status: Acute (3) NIMA (acute kidney injury) Status: Acute (4) Accelerated hypertension Status: Acute (5) CAD (coronary artery disease) Status: Acute (6) Congestive heart failure Status: Acute (7) Diabetes Status: Acute Plan: Plan The patient stable for discharge from the pulmonary standpoint. We will see the patient only as needed. No additional recommendations are made. Time with Patient: Less than 30
[2016-07-19] MEDS: PIPERACILLIN-TAZOBACTAM 3.375 GM in DEXTROSE/WATER 1 50ML.BAG IVPB SCH ×3 (11:25→23:48)
[2016-07-19 11:49] LABS: Glucose,Whole Blood 193 mg/dL (75-99)
--- NOTE | 2016-07-19 15:09 | P.PN ---
Subjective This is a pleasant 66-year-old female who follows regularly with Dr. Ricci in the office. She has a known history of coronary artery disease with prior stent placement of the mid left main in 2014, most recently she underwent successful stenting of the mid proximal and distal RCA in January of last year, history of anemia, history of recent vaginal bleed and D&C, diabetes, hypertension, hyperlipidemia, patient was recently in the hospital earlier this month with a vaginal bleed, she underwent a D&C at that time. Prior to that patient did have an admission to the hospital with a GI bleed, she underwent an EGD and colonoscopy, EGD revealed gastritis and duodenitis, colonoscopy revealed sigmoid diverticulosis without any active bleeding, external hemorrhoids with acute inflammation, internal hemorrhoids. She was readmitted to the hospital on this occasion with sudden onset of shortness of breath. Admitted to the intensive care unit on admission required intubation and mechanical ventilatory support. She is now being followed on the telemetry unit. Overall she states her breathing is much improved, feeling much stronger today as well. Objective - Vital Signs Vital signs: Vital Signs Temp 99.1 F 07/19/16 12:00 Pulse 70 07/19/16 13:23 Resp 18 07/19/16 12:00 BP 141/66 07/19/16 12:00 Pulse Ox 96 07/19/16 12:00 Intake & Output 07/18/16 07/19/16 07/19/16 18:59 06:59 18:59 Intake Total 570 100 0 Balance 570 100 0 Weight 96.7 kg 94 kg Intake: IV 230 100 Piperacillin-Tazobactam 3 100 100 .375 gm In Dextrose/Water 1 50ml.bag @ 12.5 mls/hr IVPB Q8HR [facility] Rx#: [id number] Sodium Chloride 0.9% 1, 130 000 ml @ 75 mls/hr IV . [id number] [facility] Rx#:[id number] Oral 340 0 Other: Voiding Method Bedside Commode Bedside Commode Bedside Commode # Voids 2 0 - Exam PHYSICAL EXAMINATION: HEENT: Head is atraumatic, normocephalic. Pupils equal, round. Neck is supple. There is no elevated jugular venous pressure. HEART EXAMINATION: Heart S1, S2 normal. No murmur or gallop heard. CHEST EXAMINATION: Lungs are clear with fine crackles to posterior bases. ABDOMEN: Soft, nontender. Bowel sounds are heard. No organomegaly noted. EXTREMITIES: 2+ peripheral pulses with no evidence of peripheral edema and no calf tenderness noted. NEUROLOGIC patient is awake, alert and oriented -3. - Labs CBC & Chem 7: 07/19/16 05:52 07/19/16 05:52 Labs: Abnormal Lab Results - Last 24 Hours (Table) 07/18/16 07/18/16 07/19/16 Range/Units 17:15 21:23 05:52 RBC 2.99 L (3.80-5.40) m/uL Hgb 7.1 L (11.4-16.0) gm/dL Hct 22.8 L (34.0-46.0) % MCV 76.1 L (80.0-100.0) fL MCH 23.8 L (25.0-35.0) pg RDW 16.3 H (11.5-15.5) % BUN (7-17) mg/dL Creatinine (0.52-1.04) mg/dL Glucose (74-99) mg/dL POC Glucose (mg/dL) 220 H 184 H (75-99) mg/dL Phosphorus (2.5-4.5) mg/dL Crossmatch 07/19/16 07/19/16 07/19/16 Range/Units 05:52 06:35 10:00 RBC (3.80-5.40) m/uL Hgb (11.4-16.0) gm/dL Hct (34.0-46.0) % MCV (80.0-100.0) fL MCH (25.0-35.0) pg RDW (11.5-15.5) % BUN 46 H (7-17) mg/dL Creatinine 1.85 H (0.52-1.04) mg/dL Glucose 187 H (74-99) mg/dL POC Glucose (mg/dL) 184 H (75-99) mg/dL Phosphorus 4.7 H (2.5-4.5) mg/dL Crossmatch See Detail 07/19/16 Range/Units 11:47 RBC (3.80-5.40) m/uL Hgb (11.4-16.0) gm/dL Hct (34.0-46.0) % MCV (80.0-100.0) fL MCH (25.0-35.0) pg RDW (11.5-15.5) % BUN (7-17) mg/dL Creatinine (0.52-1.04) mg/dL Glucose (74-99) mg/dL POC Glucose (mg/dL) 193 H (75-99) mg/dL Phosphorus (2.5-4.5) mg/dL Crossmatch Microbiology - Last 24 Hours (Table) 07/16/16 10:44 Blood Culture - Preliminary Blood No Growth after 72 hours 07/17/16 06:45 Urine Culture - Final Urine,Clean Catch Jennifer sp,not albicans/galbr Assessment and Plan Plan: Assessment and plan #1 diastolic congestive heart failure acute on chronic #2 acute hypoxic and hypercapnic respiratory failure,suspected acquired pneumonia, hypoventilation syndrome, acute exacerbation of COPD. #3 leukocytosis with possible sepsis #4 morbid obesity #5 recent history of vaginal bleeding requiring a D&C, history of uterine cancer. #6 known history of coronary artery disease with prior LAD and RCA stents, most recent stent was in January of last year, patient continues to be on aspirin and Plavix #7 hypertension #8 hyperlipidemia #9 diabetes #10 Anemia Plan We will keep the patient on the current dose of by mouth Lasix. She may be able to be discharged from cardiology's perspective to follow-up with Dr. Ricci in the office post discharge.She has been recommended by Dr. Kim to have a study done at some point post discharge as well. DNP note has been reviewed, I agree with a documented findings and plan of care. Patient was seen and examined.
[2016-07-19 17:10] LABS: Glucose,Whole Blood 147 mg/dL (75-99)
[2016-07-19 20:45] LABS: Glucose,Whole Blood 148 mg/dL (75-99)
[2016-07-19] MEDS: CLOPIDOGREL 75 MG TAB PO SCH (22:07)
[2016-07-19] MEDS: INSULIN GLARGINE 100 UNIT/ML 10 ML VIAL SQ SCH (22:07)
[2016-07-19] MEDS: ATORVASTATIN 80 MG TAB PO SCH (22:07)
[2016-07-19] MEDS: ONDANSETRON 4 MG/2 ML VIAL IVP PRN (23:48)
[2016-07-20 04:45] VITALS: RESP 16
[2016-07-20 06:03] LABS: Glucose,Whole Blood 160 mg/dL (75-99)
[2016-07-20] MEDS: CARVEDILOL 12.5 MG TAB PO SCH (07:12)
[2016-07-20] MEDS: INSULIN LISPRO (humaLOG) 300 UNIT/3 ML VIAL SQ SCH ×2 (07:13)
--- NOTE | 2016-07-20 07:40 | PN ---
DATE OF SERVICE: 07/19/2016 Reason for followup is pneumonia, UTI, diarrhea. INTERVAL HISTORY: The patient is afebrile. She is breathing comfortably. Denies having any chest pain or shortness of breath or cough. No abdominal pain and diarrhea has resolved. Patient denies any burning or frequency of urine. On examination, blood pressure is 138/55 with a pulse of 70, temperature 97.8. She is 94% on 2 L nasal cannula. General description is an elderly female up in the chair in no distress. RESPIRATORY SYSTEM: Unlabored breathing. Some decreased breath sounds at the base. HEART: S1, S2. Regular rate and rhythm. ABDOMEN: Soft. There is no tenderness. LABS: Hemoglobin is 7.1, white count 7.8 with a BUN of 46 and creatinine 1.85. DIAGNOSTIC IMPRESSION AND PLAN: 1. Patient admitted to hospital with difficulty in breathing with vent dependent respiratory failure multifactorial with component of possible pneumonia, currently covered with Zosyn, will switch to oral at the time of discharge. 2. Positive urine culture with toan in a patient currently with no symptoms more likely colonized. 3. Diarrhea, antibiotic associated, resolved. Will hold Questran. [facility]
[2016-07-20] MEDS: IPRATROPIUM-ALBUTEROL 3 ML NEB INHALATION SCH ×2 (08:06→12:46)
[2016-07-20] MEDS: ASPIRIN 81 MG CHEW PO SCH (08:37)
[2016-07-20] MEDS: FUROSEMIDE 40 MG TAB PO SCH (08:37)
[2016-07-20] MEDS: NYSTATIN 100,000 UNIT/GM POWD 15 GM TOPICAL SCH (08:37)
[2016-07-20] MEDS: PANTOPRAZOLE 40 MG/10 ML VIAL IV SCH (08:37)
[2016-07-20] MEDS: amLODIPine 10 MG TAB PO SCH (08:37)
[2016-07-20] MEDS: CHOLESTYRAMINE (WITH SUGAR) 4 GM PACKET PO SCH (08:37)
[2016-07-20] MEDS: PIPERACILLIN-TAZOBACTAM 3.375 GM in DEXTROSE/WATER 1 50ML.BAG IVPB SCH (08:47)
[2016-07-20 08:58] VITALS: TEMP 97.4
[2016-07-20 11:15] LABS: Anisocytosis Slight; Basophils # (A) 0.1 k/uL (0-0.2); Basophils % (A) 1 %; CH 24.6; CHCM 31.7; Eosinophils # (A) 0.5 k/uL (0-0.7); Eosinophils % (A) 5 %; HCT 27.8 % (34.0-46.0); HDW 4.06; Hypochromasia Moderate; Luc # (Auto) 0.12; Luc % (Auto) 1; Lymphocytes # (A) 1.1 k/uL (1.0-4.8); Lymphocytes % (A) 12 %; MCH 24.7 pg (25.0-35.0); MCHC 31.8 g/dL (31.0-37.0); MCV 77.6 fL (80.0-100.0); Mean Platelet Volume 7.9; Microcytosis Slight; Monocytes # (A) 0.5 k/uL (0-1.0); Monocytes % (A) 6 %; Neutrophils # (A) 7.3 k/uL (1.3-7.7); Neutrophils % (A) 76 %; Poikilocytosis Moderate; RBC 3.59 m/uL (3.80-5.40); RDW 18.1 % (11.5-15.5); WBC 9.7 k/uL (3.8-10.6); WBC (Perox) 10.04
[2016-07-20 11:27] LABS: HGB 8.9 gm/dL (11.4-16.0)
[2016-07-20 11:28] LABS: Calcium 8.9 mg/dL (8.4-10.2); Potassium 4.2 mmol/L (3.5-5.1); Total Bilirubin 0.7 mg/dL (0.2-1.3); Total Protein 6.2 g/dL (6.3-8.2)
[2016-07-20 11:43] VITALS: BP 170/70; PULSE 63
--- NOTE | 2016-07-20 11:46 | PN ---
DATE OF SERVICE: 07/19/2016 PRESENTING COMPLAINT: Low hemoglobin. INTERVAL HISTORY: This patient was admitted with CHF exacerbation, pneumonia, also had positive cultures. This morning hemoglobin was found to be 7.1, given her history of coronary artery disease I decided to order a unit of blood. The patient's antibodies ( ) sent out to [facility]. Otherwise, patient's breathing is better. Blood pressure is much better controlled. Sugars are doing better. Review of systems done for constitutional, cardiovascular, GI, pulmonary; relevant findings as above. Current medications are reviewed. On examination, temperature 97.8, pulse 70s, respiration 16, blood pressure 138/65, pulse ox 94% on room air. GENERAL APPEARANCE: Sitting up, comfortable. EYES: Pupils equal. Conjunctivae normal. NECK: JVD not raised. Mass not palpable. RESPIRATORY: Effort normal. Lungs are clear. CARDIOVASCULAR: First and second sounds normal. No edema. ABDOMEN: Soft, nontender. Liver and spleen not palpable. PSYCHIATRY: Alert and oriented x3. Mood and affect normal. INVESTIGATIONS: Accu-Cheks much better controlled. ASSESSMENT: 1. Acute hypoxic respiratory failure present at admission, from congestive heart failure and possible pneumonia with clinical improvement. 2. Chronic diverticulosis. 3. 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 4. Acute on chronic congestive heart failure exacerbation from diastolic dysfunction. Ejection fraction 55%, underlying coronary disease prior to admission. 5. Essential hypertension. 6. Right arm weakness from old stroke. 7. Type 2 diabetes mellitus, chronically on insulin. 8. Obesity, body mass index more than 30. 9. Coronary artery disease with stent to the left anterior descending coronary artery and circumflex coronary artery January 2016. 10. Hyperlipidemia. 11. Chronic obstructive pulmonary disease in an ex-smoker acute exacerbation ( ) now improved. 12. Fibromyalgia. 13. Primary osteoarthritis in multiple joints, bilateral. 14. Chronic urinary stress incontinence. 15. Depression not otherwise specified. 16. Sepsis on presentation, blood cultures were positive for Streptococcus mitis. 17. Possible urinary tract infection and pneumonia with gram-negative organism, present on admission. PLAN: Care was discussed with the patient. Awaiting blood. Care was discussed with the patient. She is quite pleased with the care and the outcome. ( ) transfusion and patient can be discharged.
[2016-07-20 11:47] LABS: Glucose,Whole Blood 210 mg/dL (75-99)
--- NOTE | 2016-07-20 14:53 | PN ---
DATE OF SERVICE: 07/20/2016 Reason for followup is pneumonia and UTI. INTERVAL HISTORY: The patient is afebrile. She is feeling better, breathing comfortably. Denies having any chest pain. No cough. No abdominal pain. The diarrhea has resolved. On examination, her blood pressure is 142/62 with a pulse of 63, temperature 97.4, she is 94% on room air. General description is an elderly female, up in the bed in no distress. RESPIRATORY SYSTEM: Unlabored breathing. Clear to auscultation anteriorly. HEART: S1, S2, regular rate and rhythm. ABDOMEN: Soft, no tenderness. LABS: Hemoglobin 8.9, white count 9.7 with a BUN of 45, creatinine 1.79. Blood culture has been negative. DIAGNOSTIC IMPRESSION AND PLAN: 1. Patient with positive blood culture on admission with coagulase negative Staphylococcus and Staphylococcus mitis, likely a contamination. Repeat blood culture negative, no need for further work-up of the same. 2. Patient with acute respiratory failure, likely multifactorial with a component of congestive heart failure and possible pneumonia, adequately treated. Patient is finishing antibiotic therapy. 3. Diarrhea, antibiotic-associated, resolved. [facility]
--- NOTE | 2016-07-22 09:55 | DS ---
DATE OF ADMISSION: 07/13/2016 DATE OF DISCHARGE: 07/20/2016 FINAL DIAGNOSES: 1. Acute hypoxic respiratory failure present at admission from congestive heart failure and pneumonia with clinical improvement. 2. Chronic diverticulosis. 3. 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 4. Acute on chronic congestive heart failure exacerbation from diastolic dysfunction, ejection fraction 55%, underlying coronary artery disease, present on admission. 5. Essential hypertension, chronic. 6. Right arm weakness from an old stroke. 7. Diabetes mellitus type 2, chronically on insulin. 8. Obesity; body mass index more 30. 9. Coronary artery disease with stent to the LAD and circumflex back in January 2016. 10. Hyperlipidemia. 11. Chronic obstructive pulmonary disease with an ex-smoker with acute exacerbation on presentation. 12. Fibromyalgia, chronic. 13. Primary osteoarthritis, multiple joints, bilateral. 14. Chronic urinary stress incontinence. 15. Depression, not otherwise specified, chronic. 16. Sepsis on presentation blood cultures positive for Streptococcus mitis. 17. Possible urinary tract infection and pneumonia, gram negative suspected, present on admission. CONSULTATION: Dr. Goldman from infectious disease; Dr. Eric from critical care; Dr. Kim from cardiology. HOSPITAL COURSE: This very pleasant patient presented with acute congestive heart failure exacerbation, pneumonia with positive blood cultures as above, UTI. Patient's blood pressure running really high. Medications were adjusted so was insulin dose. By the time of discharge was doing much better. On examination, patient's pulse ox 94% on room air. Lungs were clear. CARDIOVASCULAR: First and second seconds normal. Care was discussed in detail with the patient and . Questions were answered. DISCHARGE MEDICATIONS: 1. Plavix 75 mg q.h.s. 2. Lipitor 80 mg q.h.s. 3. Protonix 40 mg p.o. daily. 4. Aspirin 81 mg p.o. daily. 5. Lantus 60 units subcu q.h.s. 6. Lomotil 2 tablets p.o. q.i.d. p.r.n. 7. Proventil 1 to 2 puffs q.6 p.r.n. 8. Bentyl 10 mg p.o. t.i.d. 9. Mycostatin powder topical b.i.d. 10. Coreg 25 mg p.o. b.i.d. 11. Lasix 40 mg p.o. b.i.d. 12. NovoLog 15 units subcu a.c. t.i.d. 13. Norvasc 10 mg p.o. daily. Follow up with Dr. Dacosta on 07/22/16. Follow up with Dr. Hermosillo on 07/28/16. Discharge planning more than 35 minutes.
== END 2016-07-20 14:12 | disposition home or self-care (01) | DRG 871 ==
LOC: EC 08:22 → 6ICU 10:49 → 6SEL 07-15 19:43
PROVIDERS: ADMIT Hospitalist; ATTEND Hospitalist
PROC: 5A1945Z Respiratory Ventilation, 24-96 Consecutive Hours (ICD-10-PCS; principal; 2016-07-13)
PROC: 0BH17EZ Insertion of Endotracheal Airway into Trachea, Via Natural or Artificial Opening (ICD-10-PCS; 2016-07-13)
PROC: 30233N1 Transfusion of Nonautologous Red Blood Cells into Peripheral Vein, Percutaneous Approach (ICD-10-PCS; 2016-07-20)
DX: A41.9 Sepsis, unspecified organism (principal); J96.01 Acute respiratory failure with hypoxia; I50.33 Acute on chronic diastolic (congestive) heart failure; J96.02 Acute respiratory failure with hypercapnia; J15.6 Pneumonia due to other Gram-negative bacteria; N17.9 Acute kidney failure, unspecified; E87.2 Acidosis; J44.0 Chronic obstructive pulmonary disease with (acute) lower respiratory infection; I13.0 Hypertensive heart and chronic kidney disease with heart failure and stage 1 through stage 4 chronic kidney disease, or unspecified chronic kidney disease; J98.11 Atelectasis; B37.49 Other urogenital candidiasis; I69.351 Hemiplegia and hemiparesis following cerebral infarction affecting right dominant side; J44.1 Chronic obstructive pulmonary disease with (acute) exacerbation; N39.0 Urinary tract infection, site not specified; E66.2 Morbid (severe) obesity with alveolar hypoventilation; I27.2 Other secondary pulmonary hypertension; E11.22 Type 2 diabetes mellitus with diabetic chronic kidney disease; B96.20 Unspecified Escherichia coli [E. coli] as the cause of diseases classified elsewhere; D64.9 Anemia, unspecified; E78.5 Hyperlipidemia, unspecified; E86.0 Dehydration; F32.9 Major depressive disorder, single episode, unspecified; F40.240 Claustrophobia; H40.9 Unspecified glaucoma; I08.1 Rheumatic disorders of both mitral and tricuspid valves; I25.10 Atherosclerotic heart disease of native coronary artery without angina pectoris; I25.2 Old myocardial infarction; J45.909 Unspecified asthma, uncomplicated; K57.30 Diverticulosis of large intestine without perforation or abscess without bleeding; K58.9 Irritable bowel syndrome, unspecified; M15.9 Polyosteoarthritis, unspecified; M79.7 Fibromyalgia; N18.3 Chronic kidney disease, stage 3 (moderate); N39.3 Stress incontinence (female) (male); F41.9 Anxiety disorder, unspecified; G43.909 Migraine, unspecified, not intractable, without status migrainosus; H26.9 Unspecified cataract; M54.5 Low back pain; T36.95XA Adverse effect of unspecified systemic antibiotic, initial encounter; R19.7 Diarrhea, unspecified; K64.4 Residual hemorrhoidal skin tags; K64.8 Other hemorrhoids; Z68.39 Body mass index [BMI] 39.0-39.9, adult; Z79.82 Long term (current) use of aspirin; Z79.02 Long term (current) use of antithrombotics/antiplatelets; Z79.4 Long term (current) use of insulin; Z79.899 Other long term (current) drug therapy; Z85.42 Personal history of malignant neoplasm of other parts of uterus; Z87.891 Personal history of nicotine dependence; Z95.5 Presence of coronary angioplasty implant and graft; Z99.3 Dependence on wheelchair; Z88.5 Allergy status to narcotic agent; Z88.8 Allergy status to other drugs, medicaments and biological substances
CPT/HCPCS: 31500; 36415; 36600; 71010; 80048; 80051; 80053; 81001; 81479; 82550; 82553; 82805; 83036; 83605; 83735; 83880; 84100; 84132; 84484; 85025; 85027; 85379; 85610; 85730; 86850; 86860; 86870; 86880; 86885; 86900; 86901; 86902; 86920; 87040; 87077; 87086; 87186; 93005; 94002; 94003; 94640; 94760; 96365; 96368; 96375; 99291

== ENCOUNTER 2016-08-07 16:34 | Inpatient (IN) | payer MEDICARE ==
[2016-08-07] MEDS ORDERED: ONDANSETRON 4 MG/2 ML VIAL IVP STA (17:04)
[2016-08-07 17:47] LABS: Anisocytosis Slight; Basophils % (A) 0 %; CH 24.3; CHCM 31.7; Eosinophils # (A) 0.4 k/uL (0-0.7); Eosinophils % (A) 4 %; HDW 4.22; Hypochromasia Moderate; Luc # (Auto) 0.18; Luc % (Auto) 2; Lymphocytes # (A) 1.2 k/uL (1.0-4.8); Lymphocytes % (A) 13 %; MCH 24.5 pg (25.0-35.0); MCHC 31.7 g/dL (31.0-37.0); MCV 77.3 fL (80.0-100.0); Mean Platelet Volume 7.6; Microcytosis Slight; Monocytes # (A) 0.4 k/uL (0-1.0); Monocytes % (A) 5 %; Neutrophils # (A) 6.7 k/uL (1.3-7.7); Neutrophils % (A) 75 %; Poikilocytosis Moderate; RBC 2.53 m/uL (3.80-5.40); RDW 19.2 % (11.5-15.5); WBC 8.8 k/uL (3.8-10.6); WBC (Perox) 9.28
[2016-08-07 17:51] LABS: Calcium 9.2 mg/dL (8.4-10.2); Potassium 4.2 mmol/L (3.5-5.1); Total Bilirubin 0.3 mg/dL (0.2-1.3); Total Protein 6.5 g/dL (6.3-8.2)
[2016-08-07 17:52] LABS: HGB 6.2 gm/dL (11.4-16.0)
[2016-08-07 17:53] LABS: HCT 19.5 % (34.0-46.0)
[2016-08-07] MEDS ORDERED: ACETAMINOPHEN TAB 325 MG TAB PO PRN (18:56)
[2016-08-07] MEDS ORDERED: NALOXONE 0.4 MG/ML 1 ML VIAL IV PRN (18:56)
[2016-08-07] MEDS ORDERED: ALBUTEROL NEBULIZED 2.5 MG/3 ML INHALATION PRN (18:58)
[2016-08-07] MEDS ORDERED: NITROGLYCERIN SL TABS 0.4 MG TAB SUBLINGUAL PRN (18:58)
--- NOTE | 2016-08-07 19:00 | ED ---
General Adult HPI - General Chief complaint: Headache Stated complaint: Neck/Back Pain Time Seen by Provider: 08/07/16 16:51 Source: patient Mode of arrival: wheelchair Limitations: no limitations - History of Present Illness Initial comments: This patient is 66-year-old woman who presents to be evaluated for headache. The headache is occipital, aching, constant and moderate intensity. She states that also feels like it involves her neck and back, though she denies boaz neck stiffness. Patient denies worsening or relieving factors. In addition there has been some generalized fatigue and some mild exertional dyspnea. The patient denies fever or chills, rash, neurologic symptoms, change in speech, vision, or swallowing. -: days(s) Location: head Radiation: back, neck Quality: aching Consistency: constant Improves with: none Worsens with: none Associated Symptoms: headaches Treatments Prior to Arrival: none - Related Data Home Medications Medication Instructions Recorded Confirmed Clopidogrel [Plavix] 75 mg PO HS 06/12/15 10/19/16 Insulin Glargine [Lantus] 65 unit SQ HS 01/15/16 10/19/16 Albuterol Sulfate [Proventil Hfa] 2 puff INHALATION RT-Q4H PRN 02/15/16 10/19/16 Carvedilol [Coreg] 25 mg PO BID 08/07/16 10/19/16 Insulin Aspart [NovoLOG] 20 unit SQ AC-TID 08/07/16 10/19/16 Insulin Glargine [Lantus] 10 unit SQ QAM 08/07/16 10/19/16 Nitroglycerin Sl Tabs [Nitrostat] 0.4 mg SUBLINGUAL Q5M PRN 08/07/16 10/19/16 Dicyclomine HCl 10 mg PO Q8HR PRN 08/26/16 10/19/16 Nystatin 100,000 Unit/gm Powd 1 applic TOPICAL BID PRN 08/26/16 10/19/16 [Mycostatin Powder] Furosemide [Lasix] 40 mg PO BID 09/06/16 10/19/16 Spironolactone [Aldactone] 25 mg PO MOWEFR 09/06/16 10/19/16 Meclizine [Antivert] 12.5 mg PO Q6H PRN 10/19/16 10/19/16 Previous Rx's Medication Instructions Recorded Atorvastatin [Lipitor] 80 mg PO HS #30 tab 06/16/15 Pantoprazole Sodium [Protonix] 40 mg PO DAILY #30 tablet. 06/21/15 Aspirin 81 mg PO DAILY chew 08/28/15 amLODIPine [Norvasc] 10 mg PO DAILY #30 tab 07/20/16 Ciprofloxacin HCl [Cipro] 500 mg PO Q12HR #14 tablet 10/19/16 Allergies Allergy/AdvReac Type Severity Reaction Status Date / Time hydralazine Allergy Severe Anaphylaxis Verified 10/19/16 17:52 codeine AdvReac Severe Verified 10/19/16 17:52 Sedation hydrocodone AdvReac Severe Verified 10/19/16 17:52 Sedation lisinopril AdvReac Cough Verified 10/19/16 17:52 Review of Systems ROS Statement: Those systems with pertinent positive or pertinent negative responses have been documented in the HPI. ROS Other: All systems not noted in ROS Statement are negative. Constitutional: Denies: fever, chills, weakness Eyes: Denies: eye pain, vision change ENT: Denies: ear pain, hearing loss Respiratory: Denies: cough, dyspnea, wheezes Cardiovascular: Reports: dyspnea on exertion. Denies: chest pain, palpitations , orthopnea, edema, syncope Endocrine: Reports: fatigue Gastrointestinal: Denies: abdominal pain, vomiting, diarrhea Genitourinary: Denies: dysuria Musculoskeletal: Reports: as per HPI, back pain Skin: Denies: rash Neurological: Reports: as per HPI, headache. Denies: weakness, numbness, paresthesias Past Medical History Past Medical History: Asthma, Cancer, Heart Failure, COPD, CVA/TIA, Diabetes Mellitus, Eye Disorder, Fibromyalgia, GI Bleed, Hyperlipidemia, Hypertension, Myocardial Infarction (CA), Osteoarthritis (OA), Pneumonia Additional Past Medical History / Comment(s): Pt recently admitted on 06/20/16 with acute blood loss anemia, possible uterine lesion/cancer (pt has hx of uterine cancer tx with radiation), cystitis and vaginal bleeding. Other HX: 06/18/15 R femoral pseudoaneurysm which was thrombosed (had thrombin injection) and another small R femoral stable aneurysm, acute renal failure, mild mitral and tricuspid regurg, severe pulmonary HTN, IBS, EMPHYSEMA, UTERINE CA RADITIAON ONLY, gastric ULCERS, STROKE 10-21-15- RT ARM FLACCID, RT LEG WEAK, low back pain x 30 yrs, migraines, was on thyroid medication as younger person and taken off, incontinent of urine-wears briefs.Pt stated has glaucoma, cataracts. Last Myocardial Infarction Date:: 06/12/15 History of Any Multi-Drug Resistant Organisms: None Reported Past Surgical History: Cholecystectomy, Heart Catheterization, Heart Catheterization With Stent Additional Past Surgical History / Comment(s): 06/12/15 Cardiac cath, 06/15/15 PTCA with stent mid L main, D&C X2, YRS AGO HAD A DEVICE IN FOR RADIATION TX FOR UTERINE CA THAT WAS SINCE REMOVED.EGD/COLONOSCOPY.02/18/16 heart cath 3 stents to rca Past Anesthesia/Blood Transfusion Reactions: Motion Sickness Additional Past Anesthesia/Blood Transfusion Reaction / Comment(s): CLAUSTROPHOBIA. Pt has had blood transfusion in past-no reaction to blood Date of Last Stent Placement:: 02/18/16 Past Psychological History: Anxiety, Depression Additional Psychological History / Comment(s): Pt resides with her spouse. She is basically wheel chair bound most of the time for the past several yrs. She at times ambulates with assistance or pushes her wheelchair. She feeds herself. She has a supportive family. She has a sister that helps with her bathing and her олег and spouse will help with her medication. 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 Mother Family Medical History: CVA/TIA Additional Family Medical History / Comment(s): HEART PROBLEMS, STARTED DRINKING AFTER OF HER , she of a ruptured liver at age 59 yrs. General Exam Limitations: no limitations General appearance: alert, in no apparent distress Head exam: Present: atraumatic, normocephalic, normal inspection Eye exam: Present: normal appearance, PERRL, EOMI. Absent: scleral icterus, conjunctival injection ENT exam: Present: normal oropharynx, TM's normal bilaterally Neck exam: Present: normal inspection, full ROM. Absent: tenderness, meningismus Respiratory exam: Present: normal lung sounds bilaterally. Absent: respiratory distress, wheezes, rales, rhonchi, stridor Cardiovascular Exam: Present: regular rate, normal rhythm, normal heart sounds. Absent: systolic murmur, diastolic murmur, rubs, gallop GI/Abdominal exam: Present: soft. Absent: distended, tenderness, guarding, rebound, rigid, mass Extremities exam: Present: normal inspection, normal capillary refill. Absent: pedal edema, calf tenderness Back exam: Present: normal inspection. Absent: CVA tenderness (R), CVA tenderness (L), vertebral tenderness Neurological exam: Present: alert, oriented X3, CN II-XII intact. Absent: motor sensory deficit Skin exam: Present: warm, dry, intact, pallor. Absent: rash Course Vital Signs 08/07/16 08/07/16 16:37 19:35 Temperature 98.6 F 98.2 F Pulse Rate 80 70 Respiratory 20 16 Rate Blood Pressure 142/62 137/61 O2 Sat by Pulse 98 97 Oximetry Medical Decision Making - Medical Decision Making Patient's a 66-year-old woman presenting with headache and found to be moderately anemic. Social history does reveal some postmenopausal bleeding. Patient be admitted to have transfusion and also probable HOUSECALLS NURSE consult. - Lab Data Result diagrams: 08/10/16 08:47 08/10/16 08:47 Lab Results 08/05/16 08/07/16 08/07/16 Range/Units 12:30 17:20 17:20 WBC 8.8 (3.8-10.6) k/uL RBC 2.53 L (3.80-5.40) m/uL Hgb 6.2 L* D (11.4-16.0) gm/dL Hct 19.5 L* (34.0-46.0) % MCV 77.3 L (80.0-100.0) fL MCH 24.5 L (25.0-35.0) pg MCHC 31.7 (31.0-37.0) g/dL RDW 19.2 H (11.5-15.5) % Plt Count 202 (150-450) k/uL Neutrophils % 75 % Lymphocytes % 13 % Monocytes % 5 % Eosinophils % 4 % Basophils % 0 % Neutrophils # 6.7 (1.3-7.7) k/uL Lymphocytes # 1.2 (1.0-4.8) k/uL Monocytes # 0.4 (0-1.0) k/uL Eosinophils # 0.4 (0-0.7) k/uL Basophils # 0.0 (0-0.2) k/uL Hypochromasia Moderate Poikilocytosis Moderate Anisocytosis Slight Microcytosis Slight Sodium 139 (137-145) mmol/L Potassium 4.2 (3.5-5.1) mmol/L Chloride 104 (98-107) mmol/L Carbon Dioxide 22 (22-30) mmol/L Anion Gap 13 mmol/L BUN 84 H* (7-17) mg/dL Creatinine 1.70 H (0.52-1.04) mg/dL Est GFR (MDRD) Af Amer 37 (>60 ml/min/1.73 sqM) Est GFR (MDRD) Non-Af 30 (>60 ml/min/1.73 sqM) Glucose 261 H (74-99) mg/dL Estimated Ave Glu mg/dL mg/dL Hemoglobin A1c (4.2-6.1) % Calcium 9.2 (8.4-10.2) mg/dL Total Bilirubin 0.3 (0.2-1.3) mg/dL AST 14 (14-36) U/L ALT 25 (9-52) U/L Alkaline Phosphatase 101 (38-126) U/L Total Protein 6.5 (6.3-8.2) g/dL Albumin 3.6 (3.5-5.0) g/dL Blood Type A Positive Blood Type Recheck No Antibody Screen POSITIVE Antibody Identification Anti-K Direct Antiglob Test Positive Crossmatch See Detail Spec Expiration Date 08/08/2016 - 232908/07/16 Range/Units 17:20 WBC (3.8-10.6) k/uL RBC (3.80-5.40) m/uL Hgb (11.4-16.0) gm/dL Hct (34.0-46.0) % MCV (80.0-100.0) fL MCH (25.0-35.0) pg MCHC (31.0-37.0) g/dL RDW (11.5-15.5) % Plt Count (150-450) k/uL Neutrophils % % Lymphocytes % % Monocytes % % Eosinophils % % Basophils % % Neutrophils # (1.3-7.7) k/uL Lymphocytes # (1.0-4.8) k/uL Monocytes # (0-1.0) k/uL Eosinophils # (0-0.7) k/uL Basophils # (0-0.2) k/uL Hypochromasia Poikilocytosis Anisocytosis Microcytosis Sodium (137-145) mmol/L Potassium (3.5-5.1) mmol/L Chloride (98-107) mmol/L Carbon Dioxide (22-30) mmol/L Anion Gap mmol/L BUN (7-17) mg/dL Creatinine (0.52-1.04) mg/dL Est GFR (MDRD) Af Amer (>60 ml/min/1.73 sqM) Est GFR (MDRD) Non-Af (>60 ml/min/1.73 sqM) Glucose (74-99) mg/dL Estimated Ave Glu mg/dL 163 mg/dL Hemoglobin A1c 7.3 H (4.2-6.1) % Calcium (8.4-10.2) mg/dL Total Bilirubin (0.2-1.3) mg/dL AST (14-36) U/L ALT (9-52) U/L Alkaline Phosphatase (38-126) U/L Total Protein (6.3-8.2) g/dL Albumin (3.5-5.0) g/dL Blood Type Blood Type Recheck Antibody Screen Antibody Identification Direct Antiglob Test Crossmatch Spec Expiration Date Disposition Clinical Impression: Anemia, Vaginal bleeding Disposition: ADMITTED IP TO THIS [facility] Condition: Poor
[2016-08-07] MEDS ORDERED: INSULIN REGULAR 100 UNIT/ML VIAL SQ STA (19:02)
[2016-08-07 19:15] LABS: Glucose,Whole Blood 271 mg/dL (75-99)
[2016-08-07] MEDS: SODIUM CHLORIDE 0.9% 1,000 ML IV SCH (19:30)
[2016-08-07 20:46] VITALS: BMI 41.4
[2016-08-07] MEDS: CLOPIDOGREL 75 MG TAB PO SCH (22:16)
[2016-08-07] MEDS: FAMOTIDINE 20 MG TAB PO SCH (22:16)
[2016-08-07] MEDS: FUROSEMIDE 40 MG TAB PO SCH (22:17)
[2016-08-07] MEDS: ATORVASTATIN 80 MG TAB PO SCH (22:17)
[2016-08-07] MEDS: CARVEDILOL 12.5 MG TAB PO SCH (22:17)
[2016-08-07] MEDS: NYSTATIN 100,000 UNIT/GM POWD 15 GM TOPICAL SCH (22:18)
[2016-08-07] MEDS: INSULIN LISPRO (humaLOG) 300 UNIT/3 ML VIAL SQ SCH (22:25)
[2016-08-07] MEDS: INSULIN GLARGINE 100 UNIT/ML 10 ML VIAL SQ SCH (22:25)
[2016-08-07] MEDS: MORPHINE SULFATE 4 MG/ML SYRINGE IV PRN (22:59)
[2016-08-08 07:50] LABS: Glucose,Whole Blood 222 mg/dL (75-99)
[2016-08-08 07:52] LABS: Anisocytosis Slight; Basophils % (A) 0 %; CH 24.8; CHCM 31.4; Eosinophils # (A) 0.4 k/uL (0-0.7); Eosinophils % (A) 5 %; HCT 21.2 % (34.0-46.0); HDW 3.92; Hypochromasia Moderate; Luc % (Auto) 1; Lymphocytes # (A) 1.2 k/uL (1.0-4.8); Lymphocytes % (A) 17 %; MCH 24.4 pg (25.0-35.0); MCHC 30.6 g/dL (31.0-37.0); MCV 79.5 fL (80.0-100.0); Mean Platelet Volume 7.7; Microcytosis Slight; Monocytes # (A) 0.5 k/uL (0-1.0); Monocytes % (A) 6 %; Neutrophils # (A) 5.3 k/uL (1.3-7.7); Neutrophils % (A) 71 %; Poikilocytosis Slight; RBC 2.66 m/uL (3.80-5.40); RDW 19.1 % (11.5-15.5); WBC 7.4 k/uL (3.8-10.6); WBC (Perox) 7.33
[2016-08-08] MEDS: INSULIN LISPRO (humaLOG) 300 UNIT/3 ML VIAL SQ SCH ×7 (07:57→20:15)
[2016-08-08] MEDS: PANTOPRAZOLE 40 MG TABLET PO SCH (07:59)
[2016-08-08] MEDS: amLODIPine 10 MG TAB PO SCH (08:00)
[2016-08-08] MEDS: NYSTATIN 100,000 UNIT/GM POWD 15 GM TOPICAL SCH ×2 (08:00→20:16)
[2016-08-08] MEDS: ASPIRIN 81 MG CHEW PO SCH (08:00)
[2016-08-08] MEDS: FUROSEMIDE 40 MG TAB PO SCH ×2 (08:00→16:03)
[2016-08-08 08:01] LABS: HGB 6.5 gm/dL (11.4-16.0)
[2016-08-08] MEDS: CARVEDILOL 12.5 MG TAB PO SCH ×2 (08:02→18:00)
[2016-08-08] MEDS: INSULIN GLARGINE 100 UNIT/ML 10 ML VIAL SQ SCH ×2 (08:07→20:15)
[2016-08-08 08:19] LABS: Calcium 8.8 mg/dL (8.4-10.2); Potassium 4.1 mmol/L (3.5-5.1)
[2016-08-08 10:55] LABS: Hemoglobin A1C 7.3 % (4.2-6.1)
[2016-08-08 11:49] LABS: Glucose,Whole Blood 183 mg/dL (75-99)
--- NOTE | 2016-08-08 12:54 | HP ---
DATE OF ADMISSION: 08/07/2016 PRESENTING COMPLAINT: Weak and tired. HISTORY OF PRESENTING COMPLAINT: This is a very pleasant 66-year-old patient known to me from previous admissions. 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 Patient presented feeling weak and tired. He was found to have a hemoglobin of 6.2. Patient has been having vaginal bleeding off an on at least for 2 weeks and had some large clots passed in the ER. Patient was given 1 unit of blood. Patient's and sister at the bedside. REVIEW OF SYSTEMS: CONSTITUTIONAL: Tired. HEENT: None. RESPIRATORY: None. CARDIOVASCULAR: None. GASTROINTESTINAL: None. GENITOURINARY: As above. MUSCULOSKELETAL: Pain in the joints. DERMATOLOGICAL: None. HEMATOLOGICAL: None. LYMPHATICS: None. PSYCHIATRY: None. NEUROLOGICAL: Weakness on the right side. Past medical history of GI bleed with gastric and duodenal ectasia with argon plasma coagulation, congestive heart failure with diastolic dysfunction, essential hypertension, right-sided weakness from old stroke especially in the right arm, diabetes mellitus type 2, obesity, coronary artery disease with stent to the LAD and right coronary artery in January of 2016, hyperlipidemia, COPD, fibromyalgia, osteoarthritis, chronic urinary stress incontinence, depression, uterine cancer, urinary incontinence, also history of right femoral pseudoaneurysm that was thrombosed. PAST SURGICAL HISTORY: Cardiac catheterization with stent, uterine cancer, cardiac cath with stent of May 2015, D&C, EGD and colonoscopies. SOCIAL HISTORY: , uses a wheelchair to get about. Able to feed herself. Patient stopped smoking in May 2015, smoke 4 packs a day for about 40 years. Family history of cancer and pancreatitis. Allergies to HYDRALAZINE, CODEINE, HYDROCODONE, LISINOPRIL. On examination, temperature 99.3, pulse 71, respirations 16, blood pressure 140/62, pulse ox 95% on room air. GENERAL APPEARANCE: Well built, BMI of 41.4, sitting up. EYES: Pupils equal. Conjunctivae are pale. HEENT: Oral cavity normal. NECK: JVD not raised. Mass not palpable. Respiratory effort normal. LUNGS: Slightly decreased breath sounds. CARDIOVASCULAR: First and second sounds normal. No edema. ABDOMEN: Soft, nontender, liver and spleen not palpable. LYMPHATIC: No lymph nodes palpable in neck or axillae. PSYCHIATRY: Alert and oriented x3. Mood and affect normal. NEUROLOGICAL: Chronic weakness more in the right leg. INVESTIGATIONS: White count 8.8, hemoglobin 6.2 after transfusion 6.5. Potassium 4.2, BUN 84, creatinine 1.70. Accu-Cheks are noted. ASSESSMENT: 1. Acute severe symptomatic blood loss anemia from recurrent uterine bleeding with a prior history of uterine cancer. 2. Chronic diverticulosis. 3. 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 4. Chronic congestive heart failure from diastolic function; ejection fraction 55% with underlying coronary artery disease. 5. Essential hypertension. 6. Right arm weakness from old stroke. 7. Diabetes mellitus type 2, chronically on insulin. 8. Obesity, body mass index of 44.1, morbid type. 9. Coronary artery disease with stent to left anterior descending artery and right coronary artery in January 2015. 10. Hyperlipidemia. 11. Chronic obstructive pulmonary disease in an ex-smoker. 12. Fibromyalgia. 13. Primary osteoarthritis of multiple joints, bilateral. 14. Chronic urinary stress incontinence. 15. Depression, not otherwise specified. PLAN: Patient's home medication are resumed. Patient given a unit of blood earlier. Will repeat a second unit of blood. Will get a PROFESSIONAL ORGANIZER opinion. Patient has seen Dr. Barron in the past. Maybe an endometrial ablation will have to be attempted again if that is a possibility. Care was discussed with the patient and at the bedside. Questions were answered. Home medications to be resumed.
[2016-08-08 17:03] LABS: Glucose,Whole Blood 150 mg/dL (75-99)
[2016-08-08] MEDS ORDERED: ONDANSETRON 4 MG/2 ML VIAL IVP PRN (19:54)
[2016-08-08 20:13] LABS: Glucose,Whole Blood 165 mg/dL (75-99)
[2016-08-08] MEDS: MORPHINE SULFATE 4 MG/ML SYRINGE IV PRN (20:13)
[2016-08-08] MEDS: ATORVASTATIN 80 MG TAB PO SCH (20:15)
[2016-08-08] MEDS: FAMOTIDINE 20 MG TAB PO SCH (20:15)
[2016-08-08] MEDS: CLOPIDOGREL 75 MG TAB PO SCH (20:15)
[2016-08-08] MEDS ORDERED: SODIUM CHLORIDE 0.65% NASAL SPRAY 44 ML BTL NASAL PRN (21:08)
[2016-08-08] MEDS: SODIUM CHLORIDE 0.9% 1,000 ML IV SCH (21:34)
[2016-08-09 03:36] LABS: Anisocytosis Slight; CH 25.4; CHCM 31.8; HCT 23.1 % (34.0-46.0); HDW 4.16; HGB 7.5 gm/dL (11.4-16.0); Hypochromasia Moderate; MCH 25.9 pg (25.0-35.0); MCHC 32.3 g/dL (31.0-37.0); MCV 80.2 fL (80.0-100.0); Mean Platelet Volume 8.8; Microcytosis Slight; Poikilocytosis Moderate; RBC 2.88 m/uL (3.80-5.40); WBC 7.5 k/uL (3.8-10.6)
[2016-08-09 03:57] LABS: Calcium 8.8 mg/dL (8.4-10.2); Potassium 3.9 mmol/L (3.5-5.1)
[2016-08-09] MEDS: MORPHINE SULFATE 4 MG/ML SYRINGE IV PRN (05:12)
[2016-08-09 07:28] LABS: Glucose,Whole Blood 220 mg/dL (75-99)
--- NOTE | 2016-08-09 07:42 | P.OBCN ---
History of Present Illness Consult date: 08/09/16 Requesting physician: Amadeo Aguila Reason for consult: other (Postmenopausal bleeding) Chief complaint: Anemia/postmenopausal bleeding History of present illness: Rossi is a 66-year-old female who underwent a D&C about a month and half ago for similar complaint of anemia possibly. HEENT seeing her this morning she reports she has not had any bleeding in the last 24 hours and the last time she had some bleeding she just past the couple large almost [place]-sized clots. She denies any active bleeding at this time. She denies any active bleeding last few days. However her anemia is relatively dramatic with hemoglobin initially of 6.2. She has received blood and this morning her hemoglobin is 7.5. Due to her extensive medical history I do not feel she is a good surgical candidate. If surgery would be needed I would definitely recommend a tertiary care center. Another consideration would be a trial of some type progestin either Provera or Megace in attempt to completely thin lined uterus to try and keep her from completing from the uterus. This may or may not work and it does have an increased risk of DVT and blood clot. However if the other alternative is just have her continue to bleed down and receive blood this may be a much safer and better alternative. Would ask that since she sees Dr. Smith already that he be given an opinion on this course of treatment. All questions are answered for her at this time. At least for right now she appears stable from a bleeding standpoint. Assessment postmenopausal bleeding with anemia Plan discussed with Dr. Smith potential Megace therapy to try and stop her vaginal bleeding. Alternatively transfer to a tertiary care center for potential surgical options should she need to have something surgical done Past Medical History Past Medical History: Asthma, Cancer, Heart Failure, COPD, CVA/TIA, Diabetes Mellitus, Eye Disorder, Fibromyalgia, GI Bleed, Hyperlipidemia, Hypertension, Myocardial Infarction (HI), Osteoarthritis (OA), Pneumonia Additional Past Medical History / Comment(s): Pt recently admitted on 06/20/16 with acute blood loss anemia, possible uterine lesion/cancer (pt has hx of uterine cancer tx with radiation), cystitis and vaginal bleeding. 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 Last Myocardial Infarction Date:: 06/12/15 History of Any Multi-Drug Resistant Organisms: None Reported Past Surgical History: Cholecystectomy, Heart Catheterization, Heart Catheterization With Stent Additional Past Surgical History / Comment(s): 06/12/15 Cardiac cath, 06/15/15 PTCA with stent mid L main, D&C X2, YRS AGO HAD A DEVICE IN FOR RADIATION TX FOR UTERINE CA THAT WAS SINCE REMOVED.EGD/COLONOSCOPY.02/18/16 heart cath 3 stents to rca Past Anesthesia/Blood Transfusion Reactions: Motion Sickness Additional Past Anesthesia/Blood Transfusion Reaction / Comm: CLAUSTROPHOBIA. Pt has had blood transfusion in past-no reaction to blood Date of Last Stent Placement:: 02/18/16 Past Psychological History: Anxiety, Depression Additional Psychological History / Comment(s): Pt resides with her spouse. She is basically wheel chair bound most of the time for the past several yrs. She at times ambulates with assistance or pushes her wheelchair. She feeds herself. She has a supportive family. She has a sister that helps with her bathing and her олег and spouse will help with her medication. 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 Mother Family Medical History: CVA/TIA Additional Family Medical History / Comment(s): HEART PROBLEMS, STARTED DRINKING AFTER OF HER , she of a ruptured liver at age 58 yrs. Medications and Allergies Home Medications Medication Instructions Recorded Confirmed Type Clopidogrel [Plavix] 75 mg PO HS 06/12/15 08/07/16 History Insulin Glargine [Lantus] 65 unit SQ HS 01/15/16 08/07/16 History Albuterol Sulfate [Proventil Hfa] 1 - 2 puff INHALATION RT-Q6H PRN 02/15/1606/11 History Carvedilol [Coreg] 25 mg PO BID 08/07/16 08/07/16 History Insulin Aspart [NovoLOG] 20 unit SQ AC-TID 08/07/16 08/07/16 History Insulin Glargine [Lantus] 10 unit SQ QAM 08/07/16 08/07/16 History Nitroglycerin Sl Tabs [Nitrostat] 0.4 mg SUBLINGUAL Q5M PRN 08/07/16 08/07/16 History Allergies Allergy/AdvReac Type Severity Reaction Status Date / Time hydralazine Allergy Mild Anaphylaxis Verified 08/07/16 17:16 codeine Allergy Nausea/ Verified 08/07/16 17:16 hard to wake up hydrocodone Allergy Unknown Verified 08/07/16 17:16 lisinopril Allergy Rapid Verified 08/07/16 17:16 Heart Rate Exam Osteopathic Statement: *. No significant issues noted on an osteopathic structural exam other than those noted in the History and Physical/Consult. - Vital Signs Vital signs: Vital Signs Temp Pulse Pulse Resp BP BP Pulse Ox 08/09/16 07:00 97.4 F L 65 16 171/74 94 L 08/09/16 00:51 98.1 F 65 16 128/64 96 08/09/16 00:50 98.1 F 65 16 128/64 96 08/09/16 00:00 69 16 08/08/16 23:29 98.2 F 65 16 125/53 98 08/08/16 22:47 98.1 F 69 16 114/64 08/08/16 22:36 98 F 67 15 140/60 98 08/08/16 22:14 98.2 F 69 17 153/64 94 L 08/08/16 15:35 16 08/08/16 15:00 97.3 F L 69 16 135/56 94 L 08/08/16 08:00 16 Intake and Output 08/08/16 08/09/16 08/09/16 22:59 06:59 14:59 Intake Total 240 850 Output Total 200 Balance 240 650 Intake: Oral 240 540 Blood Product 0 310 Rc Pheresis As-3 Unit 0 310 [id number] Output: Urine 200 Other: Voiding Method Toilet Bedside Commode # Voids 1 3 Weight 92 kg Results Result Diagrams: 08/09/16 03:29 08/09/16 03:29 Abnormal Lab Results - Last 24 Hours (Table) 08/08/16 08/08/16 08/08/16 Range/Units 07:22 07:22 07:49 RBC 2.66 L (3.80-5.40) m/uL Hgb 6.5 L* (11.4-16.0) gm/dL Hct 21.2 L (34.0-46.0) % MCV 79.5 L (80.0-100.0) fL MCH 24.4 L (25.0-35.0) pg MCHC 30.6 L (31.0-37.0) g/dL RDW 19.1 H (11.5-15.5) % Plt Count (150-450) k/uL BUN 76 H (7-17) mg/dL Creatinine 1.80 H (0.52-1.04) mg/dL Glucose 201 H (74-99) mg/dL POC Glucose (mg/dL) 222 H (75-99) mg/dL 08/08/16 08/08/16 08/08/16 Range/Units 11:48 17:02 20:10 RBC (3.80-5.40) m/uL Hgb (11.4-16.0) gm/dL Hct (34.0-46.0) % MCV (80.0-100.0) fL MCH (25.0-35.0) pg MCHC (31.0-37.0) g/dL RDW (11.5-15.5) % Plt Count (150-450) k/uL BUN (7-17) mg/dL Creatinine (0.52-1.04) mg/dL Glucose (74-99) mg/dL POC Glucose (mg/dL) 183 H 150 H 165 H (75-99) mg/dL 08/09/16 08/09/16 08/09/16 Range/Units 03:29 03:29 07:27 RBC 2.88 L (3.80-5.40) m/uL Hgb 7.5 L (11.4-16.0) gm/dL Hct 23.1 L (34.0-46.0) % MCV (80.0-100.0) fL MCH (25.0-35.0) pg MCHC (31.0-37.0) g/dL RDW 18.0 H (11.5-15.5) % Plt Count 139 L (150-450) k/uL BUN 70 H (7-17) mg/dL Creatinine 1.80 H (0.52-1.04) mg/dL Glucose 199 H (74-99) mg/dL POC Glucose (mg/dL) 220 H (75-99) mg/dL
[2016-08-09] MEDS: CARVEDILOL 12.5 MG TAB PO SCH ×2 (08:56→17:21)
[2016-08-09] MEDS: PANTOPRAZOLE 40 MG TABLET PO SCH (08:56)
[2016-08-09] MEDS: INSULIN LISPRO (humaLOG) 300 UNIT/3 ML VIAL SQ SCH ×10 (08:57→21:30)
[2016-08-09] MEDS: FUROSEMIDE 40 MG TAB PO SCH ×2 (08:58→17:22)
[2016-08-09] MEDS: amLODIPine 10 MG TAB PO SCH (08:58)
[2016-08-09] MEDS: NYSTATIN 100,000 UNIT/GM POWD 15 GM TOPICAL SCH ×2 (08:58→21:35)
[2016-08-09] MEDS: ASPIRIN 81 MG CHEW PO SCH (08:58)
[2016-08-09] MEDS: INSULIN GLARGINE 100 UNIT/ML 10 ML VIAL SQ SCH ×2 (09:02→21:35)
[2016-08-09 11:58] LABS: Glucose,Whole Blood 147 mg/dL (75-99)
[2016-08-09 17:22] LABS: Glucose,Whole Blood 269 mg/dL (75-99)
[2016-08-09] MEDS ORDERED: SODIUM FERRIC GLUCONAT-SUCROSE 125 MG in SODIUM CHLORIDE 0.9% 100 ML IVPB ONE (18:00)
--- NOTE | 2016-08-09 19:00 | PN ---
DATE OF SERVICE: 08/09/2016 PRESENTING COMPLAINT: Uterine bleeding. INTERVAL HISTORY: This patient with recurrent uterine bleeding had a previous attempt but uterus lining could not well be visualized in the past. Given a total of 2 units of blood. Seen by Dr. Barron. He has recommended patient to go to a tertiary center. Patient already has a doctor referral for the same. Other treatment including hormone therapy may not be very effective. Patient's and daughter at the bedside. Overall feeling better. Review of systems done for constitutional, cardiovascular, GI, pulmonary; relevant findings as above. Current medications are reviewed. On examination, temperature 97.4, pulse 55., Respiratory rate 16, blood pressure 145/65, pulse ox 95% on room air. GENERAL APPEARANCE: Sitting up, comfortable. EYES: Pupils equal. Conjunctivae pale. NECK: JVD not raised. Mass not palpable. RESPIRATORY: Effort normal. LUNGS: Slightly decreased breath sounds. CARDIOVASCULAR: First and second sounds normal. No edema. ABDOMEN: Soft, nontender liver and spleen not palpable. PSYCHIATRY: Alert and oriented x3. Mood and affect normal. INVESTIGATIONS/LABS: Hemoglobin is 7.5, platelets 139, creatinine 1.8. ASSESSMENT: 1. Acute severe symptomatic blood loss anemia from recurrent uterine bleeding, patient having received 2 units of blood. 2. Chronic diverticulosis. 3. 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 4. Chronic congestive heart failure from diastolic dysfunction, ejection fraction 55%, underlying coronary disease. 5. Essential hypertension. 6. Right arm weakness from old stroke. 7. Diabetes mellitus type 2, chronically on insulin. 8. Obesity, body mass index of 44.1, morbid type. 9. Coronary artery disease with stent to the left anterior descending coronary artery and right coronary artery in January 2015. 10. Hyperlipidemia. 11. Chronic obstructive pulmonary disease in an ex-smoker. 12. Fibromyalgia. 13. Primary osteoarthritis multiple joints, bilateral. 14. Chronic urinary stress incontinence. 15. Depression, not otherwise specified. PLAN: I had a lengthy talk with the patient's family including the patient. She wanted to get my opinion on how she did go for surgery. I did talk with her. She is at increased risk with multiple comorbidities, but otherwise if she continues to bleed that will be a problem itself. They do agree with the same. Antiplatelet agent including Paxil will have to be discussed in that case. Patient is due for an iron transfusion today at [facility]. Will give her 1 unit of that today. If the patient remains stable, the patient will be discharged tomorrow. Iron is being ordered. Total time spent today was about 40 minutes with over 20 minutes of discussion.
[2016-08-09 20:10] LABS: Glucose,Whole Blood 175 mg/dL (75-99)
[2016-08-09] MEDS: ATORVASTATIN 80 MG TAB PO SCH (21:32)
[2016-08-09] MEDS: SODIUM CHLORIDE 0.9% 1,000 ML IV SCH (21:32)
[2016-08-09] MEDS: FAMOTIDINE 20 MG TAB PO SCH (21:34)
[2016-08-09 22:13] LABS: Anisocytosis Slight; CH 25.3; CHCM 31.3; HCT 23.3 % (34.0-46.0); HGB 7.4 gm/dL (11.4-16.0); Hypochromasia Marked; MCH 25.8 pg (25.0-35.0); MCHC 31.9 g/dL (31.0-37.0); Mean Platelet Volume 8.2; Microcytosis Slight; Poikilocytosis Moderate; RBC 2.88 m/uL (3.80-5.40); WBC 6.7 k/uL (3.8-10.6)
[2016-08-09 22:21] LABS: INR 1.1 (<1.1); Prothrombin Time 11.1 sec (9.0-12.0)
[2016-08-09] MEDS: CLOPIDOGREL 75 MG TAB PO SCH (22:51)
[2016-08-09 23:59] LABS: Glucose,Whole Blood 127 mg/dL (75-99)
[2016-08-10 07:13] LABS: Glucose,Whole Blood 212 mg/dL (75-99)
[2016-08-10 07:43] VITALS: BP 152/68; PULSE 65; RESP 18; TEMP 98.5
[2016-08-10] MEDS: FUROSEMIDE 40 MG TAB PO SCH (08:00)
[2016-08-10] MEDS: ASPIRIN 81 MG CHEW PO SCH (08:01)
[2016-08-10] MEDS: NYSTATIN 100,000 UNIT/GM POWD 15 GM TOPICAL SCH (08:01)
[2016-08-10] MEDS: PANTOPRAZOLE 40 MG TABLET PO SCH (08:01)
[2016-08-10] MEDS: CARVEDILOL 12.5 MG TAB PO SCH (08:01)
[2016-08-10] MEDS: amLODIPine 10 MG TAB PO SCH (08:01)
[2016-08-10] MEDS: INSULIN LISPRO (humaLOG) 300 UNIT/3 ML VIAL SQ SCH ×4 (08:02→11:56)
[2016-08-10] MEDS: INSULIN GLARGINE 100 UNIT/ML 10 ML VIAL SQ SCH (08:03)
[2016-08-10 09:04] LABS: Anisocytosis Slight; Basophils % (A) 0 %; CH 25.3; CHCM 31.4; Eosinophils # (A) 0.2 k/uL (0-0.7); Eosinophils % (A) 4 %; HCT 22.1 % (34.0-46.0); HDW 4.22; HGB 7.1 gm/dL (11.4-16.0); Hypochromasia Marked; Luc # (Auto) 0.13; Luc % (Auto) 3; Lymphocytes # (A) 0.8 k/uL (1.0-4.8); Lymphocytes % (A) 15 %; MCH 25.7 pg (25.0-35.0); MCHC 31.9 g/dL (31.0-37.0); MCV 80.8 fL (80.0-100.0); Mean Platelet Volume 8.2; Microcytosis Slight; Monocytes # (A) 0.3 k/uL (0-1.0); Monocytes % (A) 6 %; Neutrophils # (A) 3.8 k/uL (1.3-7.7); Neutrophils % (A) 72 %; Poikilocytosis Moderate; RBC 2.74 m/uL (3.80-5.40); RDW 18.3 % (11.5-15.5); WBC 5.3 k/uL (3.8-10.6); WBC (Perox) 5.59
[2016-08-10 09:16] LABS: Calcium 8.6 mg/dL (8.4-10.2); Potassium 3.6 mmol/L (3.5-5.1)
[2016-08-10 11:15] LABS: Glucose,Whole Blood 152 mg/dL (75-99)
--- NOTE | 2016-08-11 08:31 | DS ---
DATE OF ADMISSION: 08/07/2016 DATE OF DISCHARGE: 08/10/2016 FINAL DIAGNOSES: 1. Acute severe symptomatic blood loss anemia from recurrent uterine bleeding. 2. Chronic diverticulosis. 3. 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 4. Chronic congestive heart failure from diastolic dysfunction, ejection fraction 55% with underlying coronary artery disease. 5. Essential hypertension. 6. Right arm weakness from old stroke. 7. Diabetes mellitus type 2 chronically on insulin. 8. Obesity, body mass index of 44.1, morbid type. 9. Coronary artery disease with stent to the left anterior descending and right coronary artery in January of 2015. 10. Hyperlipidemia. 11. Chronic obstructive pulmonary disease in an ex-smoker. 12. Fibromyalgia. 13. Primary osteoarthritis of multiple joints bilateral. 14. Chronic urinary stress incontinence. 15. Depression, not otherwise specified. 16. Persistent menorrhagia, intermittent. CONSULTATIONS: Dr. Barron from [facility]. HOSPITAL COURSE: This patient presented with significant anemia, hemoglobin was down to 6.2. Patient did get 2 units of blood. Patient has significant antibodies. Patient has intermittent menorrhagia. Dr. Barron in the past has attempted to go in but unsuccessfully. Patient, therefore has been referred to an outside street light inspector with whom patient will follow. Patient needed may need a partial hysterectomy or an endometrial ablation. Patient understands she is a higher risk for any intervention. Patient's last coronary intervention was about 6 months ago and understanding there is a high risk, but if she continues to bleed that is a problem too and patient accepts that risk. This was discussed with the patient and in detail. On discharge hemoglobin is 7.1. DISCHARGE MEDICATIONS: 1. Plavix 75 mg q.h.s. 2. Lipitor 80 mg q.h.s. 3. Protonix 40 mg daily. 4. Aspirin 81 mg daily. 5. Lantus 55 units subQ q.h.s. 6. ProAir 1 to 2 puffs q.6 p.r.n. 7. Nystatin topical. 8. Lasix 40 mg p.o. b.i.d. 9. Norvasc 10 mg p.o. daily. 10. Coreg 25 p.o. b.i.d. 11. Humalog 20 units a.c. t.i.d. 12. Lantus 10 units subQ in the morning. 13. Nitrostat 0.4 sublingual q.5 p.r.n. 14. Lantus 55 units subQ q.h.s. Follow up with Dr. Amaya who is a [facility] in one week; follow up with Dr. Hermosillo on 08/16/2016. CBC in 5 days. Discharge planning more than 35 minutes. On examination, lungs having decreased breath sounds. CARDIOVASCULAR: First and second seconds are normal.
== END 2016-08-10 13:40 | disposition home health service (06) | DRG 760 ==
LOC: EC 16:34 → 5MS5E 19:00
PROVIDERS: ADMIT Hospitalist; ATTEND Hospitalist
PROC: 30233N1 Transfusion of Nonautologous Red Blood Cells into Peripheral Vein, Percutaneous Approach (ICD-10-PCS; principal; 2016-08-08)
DX: N95.0 Postmenopausal bleeding (principal); D62 Acute posthemorrhagic anemia; I27.2 Other secondary pulmonary hypertension; I11.0 Hypertensive heart disease with heart failure; I50.32 Chronic diastolic (congestive) heart failure; I69.351 Hemiplegia and hemiparesis following cerebral infarction affecting right dominant side; Z68.41 Body mass index [BMI] 40.0-44.9, adult; E66.01 Morbid (severe) obesity due to excess calories; J44.9 Chronic obstructive pulmonary disease, unspecified; K57.90 Diverticulosis of intestine, part unspecified, without perforation or abscess without bleeding; K31.819 Angiodysplasia of stomach and duodenum without bleeding; E11.9 Type 2 diabetes mellitus without complications; E78.5 Hyperlipidemia, unspecified; M79.7 Fibromyalgia; M19.91 Primary osteoarthritis, unspecified site; N39.3 Stress incontinence (female) (male); F32.9 Major depressive disorder, single episode, unspecified; I25.10 Atherosclerotic heart disease of native coronary artery without angina pectoris; Z95.5 Presence of coronary angioplasty implant and graft; H40.9 Unspecified glaucoma; I25.2 Old myocardial infarction; J45.909 Unspecified asthma, uncomplicated; F40.240 Claustrophobia; I08.1 Rheumatic disorders of both mitral and tricuspid valves; H26.9 Unspecified cataract; G43.909 Migraine, unspecified, not intractable, without status migrainosus; K58.9 Irritable bowel syndrome, unspecified; Z85.42 Personal history of malignant neoplasm of other parts of uterus; Z87.11 Personal history of peptic ulcer disease; Z87.891 Personal history of nicotine dependence; Z99.3 Dependence on wheelchair; Z79.02 Long term (current) use of antithrombotics/antiplatelets; Z79.82 Long term (current) use of aspirin; Z79.4 Long term (current) use of insulin; Z79.899 Other long term (current) drug therapy
CPT/HCPCS: 36415; 80048; 80053; 83036; 85025; 85027; 85610; 86850; 86870; 86880; 86885; 86900; 86901; 86902; 86920; 96374; 99285

== ENCOUNTER → 2016-08-12 | Outpatient (CLI) | payer MEDICARE ==
[2016-08-12 18:55] LABS: Anisocytosis Slight; CH 25.1; CHCM 30.6; HCT 25.5 % (34.0-46.0); HDW 4.31; HGB 7.9 gm/dL (11.4-16.0); Hypochromasia Marked; MCH 25.6 pg (25.0-35.0); MCHC 31.1 g/dL (31.0-37.0); MCV 82.5 fL (80.0-100.0); Mean Platelet Volume 7.2; Poikilocytosis Moderate; RDW 18.6 % (11.5-15.5); WBC 8.3 k/uL (3.8-10.6)
== END | disposition home or self-care (01) ==
LOC: LABMAIN 18:00
PROVIDERS: ATTEND Internal Medicine Interventional Cardiology
DX: D64.9 Anemia, unspecified (principal)
CPT/HCPCS: 36415; 85027

== ENCOUNTER → 2016-08-25 | Outpatient (CLI) | payer MEDICARE ==
--- NOTE | 2016-08-25 20:32 | CONS ---
DATE OF CONSULTATION: 08/25/2016 This patient is a 66-year-old lady who has been evaluated in the sleep center for possible obstructive sleep apnea/hypopnea syndrome. HISTORY OF PRESENT ILLNESS/SLEEP-WAKE EVALUATION: Patient's usual sleep schedule at present is from 9 p.m. to 7 a.m. No problem with falling asleep. She has a TV set in the bedroom. She prefers to sleep on the side position. According to her , she has occasional snoring. She wakes up from sleep multiple times, around 4, with 3 episodes of nocturia at that time. Positive history of leg jerking during the night. Patient has a dry mouth, panic attacks, gasping for air. In the morning she wakes up tired, has problems paying attention, worries about her sleep, has problems with concentration, irritability, depression, anxiety, claustrophobia. [place] Sleepiness Scale is 8. Past medical history is positive for: 1. PTSD. 2. Coronary artery disease. 3. Heart attack. 4. Stroke. 5. Hypertension. 6. CHF. 7. Acid reflux. 8. Hyperlipidemia. 9. Diabetes mellitus. 10. Asthma. 11. COPD. 12. Several episodes of uterine bleeding from the areas where she had radiation therapy. PAST SURGICAL HISTORY: 1. Cholecystectomy. 2. Tubal ligation. 3. Radiation therapy for uterus carcinoma. MEDICATIONS: 1. Aspirin. 2. Norvasc. 3. Lasix. 4. Protonix. 5. Lipitor. 6. Plavix. 7. Proventil inhaler. 8. Different types of insulin. SOCIAL HISTORY: Positive for smoking for about 40 years, up to 3 packs; quit 2 years ago. Alcohol consumption: None. REVIEW OF SYSTEMS: Multiple awakenings from sleep. History of stroke with right-sided weakness and residual deficit; had 3 of strokes. No fevers. No double vision. No recent chest pain. No shortness of breath. No abdominal pain. No bleeding episodes. No blood in urine. No seizure episodes. FAMILY HISTORY: Hypertension, angina, heart problems, hyperlipidemia, ( ) fibromyalgia, arthritis, asthma, sinus headaches, bronchitis, lung problems, emphysema, snoring, tuberculosis, pneumonia, headaches, cancer, insomnia, acid reflux, ulcers, liver problems, diabetes, anemia, mental illness, restless leg. PHYSICAL EXAMINATION: GENERAL: A pleasant 66-year-old lady without distress in a wheelchair. VITAL SIGNS: BP 151/64, HR 64, RR 16. Height around 61 inches. Weight 209.6 pounds. BMI 39.4. Neck 19-1/2 inches in circumference. Temperature 97.6. Oxygen saturation at room air 97%. HEENT: RAGHAV HENDERSON. Evaluation of oropharynx showed tongue protrudes midline; low position of soft palate. Pale conjunctivae. NECK: Supple. No JVD. Thyroid is not palpable. LUNGS: Clear to percussion and to auscultation. Good air exchange. No wheezing or rhonchi. HEART: S1, S2 regular. No murmurs, gallops or rubs. ABDOMEN: Obese. EXTREMITIES: One plus ankle edema. ACCOUNT EXECUTIVE: Weakness of the right arm and right leg. IMPRESSION: 1. Snoring, multiple awakenings from sleep with nocturia, low position of soft palate, sleepiness, big neck; obstructive sleep apnea/hypopnea syndrome. 2. Obesity; body mass index 39.4. 3. Post-traumatic stress disorder. 4. Coronary artery disease, status post heart attack, status post stent insertion. 5. History of strokes x3 with right-sided weakness and residual deficit on the right side. 6. Swelling of the legs; possible congestive heart failure. 7. Acid reflux. 8. Hyperlipidemia. 9. Diabetes mellitus. 10. Asthma. 11. History of smoking for more than 100 pack-years; chronic obstructive pulmonary disease. 12. Status post cholecystectomy. 13. History of uterine carcinoma, status post radiation therapy. 14. Status post multiple episodes of bleeding from the area where she had radiation therapy. 15. Status post tubal ligation. PLAN: 1. Polysomnography for evaluation of patient's breathing during sleep. 2. CPAP/BiPAP titration if sleep study confirms obstructive sleep apnea-hypopnea syndrome. 3. Preferable position during sleep on the side. 4. No driving if patient feels any sleepiness. Patient is aware of civil and criminal liability for unsafe driving. 5. I will see patient for follow-up visit to explain results of the testing and following plan. Thank you very much for referring this patient for consultation. Sincerely, Donaldo Farrell MD, PhD, FAASM. Diplomat of [place] [employer], Sleep Medicine Board by [place] [employer] [place] [employer] Busperson of [facility]
== END | disposition home or self-care (01) ==
LOC: SLEEP 15:04
PROVIDERS: ATTEND Internal Medicine
DX: G47.33 Obstructive sleep apnea (adult) (pediatric) (principal); R35.1 Nocturia; K21.9 Gastro-esophageal reflux disease without esophagitis; E11.9 Type 2 diabetes mellitus without complications; E66.9 Obesity, unspecified; F43.10 Post-traumatic stress disorder, unspecified; J44.9 Chronic obstructive pulmonary disease, unspecified; J45.909 Unspecified asthma, uncomplicated; I25.10 Atherosclerotic heart disease of native coronary artery without angina pectoris; Z79.4 Long term (current) use of insulin; Z95.5 Presence of coronary angioplasty implant and graft; Z99.3 Dependence on wheelchair; Z92.3 Personal history of irradiation; Z79.82 Long term (current) use of aspirin; Z86.73 Personal history of transient ischemic attack (TIA), and cerebral infarction without residual deficits; Z85.42 Personal history of malignant neoplasm of other parts of uterus; Z87.891 Personal history of nicotine dependence; Z68.39 Body mass index [BMI] 39.0-39.9, adult; Z79.02 Long term (current) use of antithrombotics/antiplatelets; Z79.899 Other long term (current) drug therapy
CPT/HCPCS: 99211

== ENCOUNTER 2016-08-26 15:53 | Inpatient (IN) | payer MEDICARE ==
--- NOTE | 2016-08-26 16:32 | ED ---
General Adult HPI - General Chief complaint: Weakness Stated complaint: Fatigue/ Feeling off Time Seen by Provider: 08/26/16 16:05 Source: patient, RN notes reviewed Mode of arrival: wheelchair Limitations: no limitations - History of Present Illness Initial comments: This is a 66-year-old female presents to the emergency department with past medical history significant for anemia and congestive heart failure. Patient states she is anemic because she's been having some vaginal bleeding and she needs a hysterectomy. Patient states she can't get hysterectomy until she gets her hemoglobin up and cardiology clears her because she just recently had some stents placed. Patient denies any difficulty breathing or shortness of breath. Patient states she comes in today because she's been feeling weaker and weaker and sometimes lightheaded when she walks. Patient denies any headache. Patient denies any focal weakness or numbness. Patient denies any chest pain or palpitations. Patient denies any fever or chills. Patient denies any abdominal pain patient denies nausea vomiting or diarrhea. Patient denies any injury or trauma. - Related Data Home Medications Medication Instructions Recorded Confirmed Clopidogrel [Plavix] 75 mg PO HS 06/12/15 08/26/16 Insulin Glargine [Lantus] 65 unit SQ HS 01/15/16 08/26/16 Albuterol Sulfate [Proventil Hfa] 1 - 2 puff INHALATION RT-QID PRN 02/15/1609/09 Carvedilol [Coreg] 25 mg PO BID 08/07/16 08/26/16 Insulin Aspart [NovoLOG] 20 unit SQ AC-TID 08/07/16 08/26/16 Insulin Glargine [Lantus] 10 unit SQ QAM 08/07/16 08/26/16 Nitroglycerin Sl Tabs [Nitrostat] 0.4 mg SUBLINGUAL Q5M PRN 08/07/16 08/26/16 Nystatin 100,000 Unit/gm Powd 1 applic TOPICAL BID PRN 08/26/16 08/26/16 [Mycostatin Powder] Previous Rx's Medication Instructions Recorded Atorvastatin [Lipitor] 80 mg PO HS #30 tab 06/16/15 Pantoprazole Sodium [Protonix] 40 mg PO DAILY #30 tablet. 06/21/15 Aspirin 81 mg PO DAILY chew 08/28/15 Furosemide [Lasix] 40 mg PO BID #60 tab 07/20/16 amLODIPine [Norvasc] 10 mg PO DAILY #30 tab 07/20/16 Allergies Allergy/AdvReac Type Severity Reaction Status Date / Time hydralazine Allergy Severe Anaphylaxis Verified 08/26/16 16:57 codeine AdvReac Hallucinati Verified 08/26/16 16:57 ons hydrocodone AdvReac Hallucinati Verified 08/26/16 16:57 ons lisinopril AdvReac Rapid Verified 08/26/16 16:57 Heart Rate Review of Systems ROS Statement: Those systems with pertinent positive or pertinent negative responses have been documented in the HPI. ROS Other: All systems not noted in ROS Statement are negative. Past Medical History Past Medical History: Asthma, Cancer, Heart Failure, COPD, CVA/TIA, Diabetes Mellitus, Eye Disorder, Fibromyalgia, GI Bleed, Hyperlipidemia, Hypertension, Myocardial Infarction (TX), Osteoarthritis (OA), Pneumonia Additional Past Medical History / Comment(s): Pt recently admitted on 06/20/16 with acute blood loss anemia, possible uterine lesion/cancer (pt has hx of uterine cancer tx with radiation), cystitis and vaginal bleeding. 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 Last Myocardial Infarction Date:: 06/12/15 History of Any Multi-Drug Resistant Organisms: None Reported Past Surgical History: Cholecystectomy, Heart Catheterization, Heart Catheterization With Stent Additional Past Surgical History / Comment(s): 06/12/15 Cardiac cath, 06/15/15 PTCA with stent mid L main, D&C X2, YRS AGO HAD A DEVICE IN FOR RADIATION TX FOR UTERINE CA THAT WAS SINCE REMOVED.EGD/COLONOSCOPY.02/18/16 heart cath 3 stents to rca Past Anesthesia/Blood Transfusion Reactions: Motion Sickness Additional Past Anesthesia/Blood Transfusion Reaction / Comment(s): CLAUSTROPHOBIA. Pt has had blood transfusion in past-no reaction to blood Date of Last Stent Placement:: 02/18/16 Past Psychological History: Anxiety, Depression Additional Psychological History / Comment(s): Pt resides with her spouse. She is basically wheel chair bound most of the time for the past several yrs. She at times ambulates with assistance or pushes her wheelchair. She feeds herself. She has a supportive family. She has a sister that helps with her bathing and her олег and spouse will help with her medication. 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 Mother Family Medical History: CVA/TIA Additional Family Medical History / Comment(s): HEART PROBLEMS, STARTED DRINKING AFTER OF HER , she of a ruptured liver at age 58 yrs. General Exam - General Exam Comments Initial Comments: GENERAL: Patient is well-developed and well-nourished. Patient is nontoxic and well- hydrated and is in mild distress. ENT: Neck is soft and supple. No significant lymphadenopathy is noted. Oropharynx is clear. Moist mucous membranes. Neck has full range of motion without eliciting any pain. EYES: The sclera were anicteric and conjunctiva were pink and moist. Extraocular movements were intact and pupils were equal round and reactive to light. Eyelids were unremarkable. PULMONARY: Unlabored respirations. Good breath sounds bilaterally. No audible rales rhonchi or wheezing was noted. CARDIOVASCULAR: There is a regular rate and rhythm without any murmurs gallops or rubs. ABDOMEN: Soft and nontender with normal bowel sounds. No palpable organomegaly was noted. There is no palpable pulsatile mass. SKIN: Patient is pale NEUROLOGIC: Patient is alert and oriented x3. Cranial nerves II through XII are grossly intact. Motor and sensory are also intact. Normal speech, volume and content. Symmetrical smile. MUSCULOSKELETAL: Normal extremities with adequate strength and full range of motion. No lower extremity swelling or edema. No calf tenderness. LYMPHATICS: No significant lymphadenopathy is noted PSYCHIATRIC: Normal psychiatric evaluation. Normal interpersonal interactions appears functionally intact in deals appropriately with others. No signs of depression. No signs of anxiety. Limitations: no limitations Course Vital Signs 08/26/16 16:05 Temperature 98.4 F Pulse Rate 74 Respiratory 16 Rate Blood Pressure 146/76 O2 Sat by Pulse 97 Oximetry Medical Decision Making - Medical Decision Making EKG shows sinus bradycardia with a first degree block at a rate of 57 bpm OR interval 220 QRS is 86 QT interval 454 QTC is 441. Patient's EKG shows no new changes from the old EKG. - Lab Data Result diagrams: 08/26/16 16:20 08/26/16 16:20 Lab Results 08/26/16 08/26/16 08/26/16 Range/Units 16:20 16:20 16:20 WBC 7.8 (3.8-10.6) k/uL RBC 2.43 L (3.80-5.40) m/uL Hgb 6.5 L* D (11.4-16.0) gm/dL Hct 20.8 L (34.0-46.0) % MCV 85.5 D (80.0-100.0) fL MCH 26.8 (25.0-35.0) pg MCHC 31.3 (31.0-37.0) g/dL RDW 22.2 H (11.5-15.5) % Plt Count 192 (150-450) k/uL Neutrophils % 74 % Lymphocytes % 15 % Monocytes % 4 % Eosinophils % 5 % Basophils % 0 % Neutrophils # 5.7 (1.3-7.7) k/uL Lymphocytes # 1.2 (1.0-4.8) k/uL Monocytes # 0.3 (0-1.0) k/uL Eosinophils # 0.4 (0-0.7) k/uL Basophils # 0.0 (0-0.2) k/uL Hypochromasia Marked Poikilocytosis Moderate Anisocytosis Moderate Microcytosis Slight PT 11.0 (9.0-12.0) sec INR 1.1 (<1.1) APTT 22.7 (22.0-30.0) sec Sodium 139 (137-145) mmol/L Potassium 4.1 (3.5-5.1) mmol/L Chloride 104 (98-107) mmol/L Carbon Dioxide 23 (22-30) mmol/L Anion Gap 12 mmol/L BUN 71 H (7-17) mg/dL Creatinine 1.85 H (0.52-1.04) mg/dL Est GFR (MDRD) Af Amer 33 (>60 ml/min/1.73 sqM) Est GFR (MDRD) Non-Af 27 (>60 ml/min/1.73 sqM) Glucose 197 H (74-99) mg/dL Calcium 9.3 (8.4-10.2) mg/dL Magnesium 2.1 (1.6-2.3) mg/dL Total Bilirubin 0.4 (0.2-1.3) mg/dL AST 12 L (14-36) U/L ALT 22 (9-52) U/L Alkaline Phosphatase 90 (38-126) U/L Total Protein 6.4 (6.3-8.2) g/dL Albumin 3.5 (3.5-5.0) g/dL Disposition Clinical Impression: Anemia Disposition: ADMITTED IP TO THIS [facility] Time of Disposition: 17:15
[2016-08-26 16:45] LABS: Anisocytosis Moderate; Basophils % (A) 0 %; CHCM 31.8; Eosinophils # (A) 0.4 k/uL (0-0.7); Eosinophils % (A) 5 %; HCT 20.8 % (34.0-46.0); Hypochromasia Marked; Luc # (Auto) 0.18; Luc % (Auto) 2; Lymphocytes # (A) 1.2 k/uL (1.0-4.8); Lymphocytes % (A) 15 %; MCH 26.8 pg (25.0-35.0); MCHC 31.3 g/dL (31.0-37.0); Mean Platelet Volume 7.4; Microcytosis Slight; Monocytes # (A) 0.3 k/uL (0-1.0); Monocytes % (A) 4 %; Neutrophils # (A) 5.7 k/uL (1.3-7.7); Neutrophils % (A) 74 %; Poikilocytosis Moderate; RBC 2.43 m/uL (3.80-5.40); RDW 22.2 % (11.5-15.5); WBC 7.8 k/uL (3.8-10.6); WBC (Perox) 8.29
[2016-08-26 16:49] LABS: HGB 6.5 gm/dL (11.4-16.0); MCV 85.5 fL (80.0-100.0)
[2016-08-26 16:55] LABS: Calcium 9.3 mg/dL (8.4-10.2); Magnesium 2.1 mg/dL (1.6-2.3); Potassium 4.1 mmol/L (3.5-5.1); Total Bilirubin 0.4 mg/dL (0.2-1.3); Total Protein 6.4 g/dL (6.3-8.2)
[2016-08-26 16:57] LABS: INR 1.1 (<1.1); Partial Thromboplastin Time 22.7 sec (22.0-30.0)
--- NOTE | 2016-08-26 16:58 | XR ---
EXAMINATION TYPE: XR chest 2V DATE OF EXAM: 08/26/2016 4:50 PM COMPARISON: 07/16/2016 INDICATION: Weakness TECHNIQUE: Frontal and lateral views of the chest are obtained. FINDINGS: The heart size is normal. The pulmonary vasculature is normal. The lungs are clear. Previous left lower lobe infiltrate or pleural effusion is resolved. IMPRESSION: 1. No acute pulmonary process.
[2016-08-26 17:14] LABS: Creatine Kinase 36 U/L (30-135)
[2016-08-26] MEDS ORDERED: SODIUM CHLORIDE 0.9% 1,000 ML IV ONE (17:16)
[2016-08-26 17:26] LABS: Creatine Kinase MB 1.1 ng/mL (0.0-2.4); Troponin I <0.012 ng/mL (0.000-0.034)
[2016-08-26 19:12] VITALS: BMI 37.5
[2016-08-26 21:21] LABS: Glucose,Whole Blood 289 mg/dL (75-99)
[2016-08-26] MEDS: INSULIN GLARGINE 100 UNIT/ML 10 ML VIAL SQ SCH ×2 (21:27→21:30)
[2016-08-27 07:18] LABS: Glucose,Whole Blood 207 mg/dL (75-99)
[2016-08-27] MEDS ORDERED: FUROSEMIDE 40 MG TAB PO SCH (09:00)
[2016-08-27] MEDS: CARVEDILOL 12.5 MG TAB PO SCH ×2 (09:00→18:08)
[2016-08-27] MEDS: INSULIN LISPRO (humaLOG) 300 UNIT/3 ML VIAL SQ SCH ×6 (09:02→21:02)
[2016-08-27] MEDS: INSULIN GLARGINE 100 UNIT/ML 10 ML VIAL SQ SCH ×2 (09:05→21:03)
[2016-08-27] MEDS: amLODIPine 10 MG TAB PO SCH (09:05)
[2016-08-27] MEDS: PANTOPRAZOLE 40 MG TABLET PO SCH (09:05)
[2016-08-27] MEDS ORDERED: NYSTATIN 100,000 UNIT/GM POWD 15 GM TOPICAL PRN (11:09)
[2016-08-27] MEDS ORDERED: DICYCLOMINE 10 MG CAP PO PRN (11:09)
[2016-08-27] MEDS ORDERED: NITROGLYCERIN SL TABS 0.4 MG TAB SUBLINGUAL PRN (11:09)
[2016-08-27] MEDS ORDERED: ALBUTEROL NEBULIZED 2.5 MG/3 ML INHALATION PRN (11:09)
[2016-08-27 11:34] LABS: Glucose,Whole Blood 270 mg/dL (75-99)
--- NOTE | 2016-08-27 12:31 | HP ---
DATE OF ADMISSION: 08/26/2016 Patient is a 66 year-old with significant past medical history with multiple medical problems, came in with anemia with hemoglobin of 6.5. Patient has constant vaginal bleed for which patient is supposed to undergo cholecystectomy which is scheduled at [facility] because of her complicated medical problems, on September 12. The patient is admitted here for blood transfusion because of her 6.3 hemoglobin although patient has multiple other medical problems. Patient had a cardiac catheterization less than a year ago for which patient is on aspirin and Plavix which cannot be stopped for more than a day and the other issue being the patient received multiple, ( ) she developed antibodies, significant antibodies in the blood because of her multiple transfusions and it is hard to obtain blood transfusion and because of we cannot transfuse aggressively either, patient will receive 2 units of blood transfusion. Patient does have a history of diastolic dysfunction, normal ejection fraction, the patient is on 40 oral b.i.d. of Lasix and patient although denied any shortness of breath. Patient does not have any evidence of congestive heart failure exacerbation. Patient's creatinine is a bit worse because of BUN and creatinine are a bit worse because of the continuous vaginal bleed because of which Lasix will be held. Patient will be given 2 units of transfusion after which we will give one dose of oral Lasix. Patient is clinically doing well without any heart failure. Patient will be discharged today, although we will monitor her tonight. REVIEW OF SYSTEMS: CONSTITUTIONAL: No fever, no malaise, no fatigue. HEENT: No recent visual problems or hearing problems. Denied any sore throat. CARDIOVASCULAR: No chest pain, orthopnea, PND, no palpitations, no syncope. PULMONARY: No shortness of breath, no cough, no hemoptysis. GASTROINTESTINAL: No diarrhea, no nausea, no vomiting, no abdominal pain. Normoactive bowel sounds. NEUROLOGICAL: No headaches, no weakness, no numbness. HEMATOLOGICAL: Denies any bleeding or petechiae. GENITOURINARY: as described in HPI. MUSCULOSKELETAL/RHEUMATOLOGICAL: Denies any joint pain, swelling, or any muscle pain. ENDOCRINE: Denies any polyuria or polydipsia. The rest of the 14 point review of systems is negative. Home medications include: 1. Plavix. 2. Lantus ( ) units at bedtime. 3. Albuterol. 4. Coreg. 5. 20 units t.i.d. a.c. Aspart. 6. Nitroglycerin. 7. Nystatin. 8. Atorvastatin. 9. Pantoprazole. 10. Aspirin. 11. Lasix 40 mg orally daily. 12. Amlodipine 10 mg oral daily. ALLERGIES: HYDRALAZINE, CODEINE, HYDROCODONE, LISINOPRIL. Past medical history significant for: Heart failure, diastolic dysfunction and COPD, CVA, TIA, diabetes mellitus, fibromyalgia, multiple episodes of gastrointestinal bleed as well as vaginal bleed, hyperlipidemia, hypertension, osteoarthritis, cardiac catheterization, cholecystectomy, cardiac catheterization, stent placement, anxiety, depression. SOCIAL HISTORY: Former smoker. Denied any alcohol abuse or any drug abuse. FAMILY HISTORY: Father had pancreatitis and liver cancer. Mother had CVA, TIA, PHYSICAL EXAMINATION: VITAL SIGNS: Temperature 97.9, pulse of 63, respiratory rate of 14, blood pressure is 157/67. Saturating at 97% on room air. GENERAL: Patient generally looks pale with conjunctival pallor. Alert and oriented x3 very pleasant female. HEENT: Pupils are round and equally reacting to light. EOMI. No scleral icterus. No conjunctival pallor. Normocephalic, atraumatic. No pharyngeal erythema. No thyromegaly. CARDIOVASCULAR: S1 and S2 present. No murmurs, rubs, or gallops. PULMONARY: Chest is clear to auscultation, no wheezing or crackles. ABDOMEN: Soft, nontender, nondistended, normoactive bowel sounds. No palpable organomegaly. MUSCULOSKELETAL: No joint swelling or deformity. EXTREMITIES: No cyanosis, clubbing, or pedal edema. NEUROLOGICAL: Gross neurological examination did not reveal any focal deficits. SKIN: No rashes. LABORATORY DATA: CBC and basic metabolic profile are abnormal for low hemoglobin of 6.5. Patient has microcytic anemia secondary to GI bleed and iron deficiency anemia secondary to that and BUN 71, creatinine 1.85. ASSESSMENT AND PLAN: 1. Vaginal bleed, which has been going on for some time. We will transfuse her symptomatic treatment. Patient has continuous vaginal bleed. Patient is scheduled for hysterectomy on September 12. Because of her multiple medical problems, she has to be admitted here. 2. Congestive heart failure, chronic diastolic dysfunction. Patient is on the hypovolemic side. Will hold off her Lasix. With blood transfusion, her renal failure is expected to improve. 3. 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 4. Patient has diabetic nephropathy. 5. Type 2 diabetes mellitus. 6. Morbid obesity. 7. Coronary artery disease with recent stents less than a year ago because of which we were unable to stop aspirin, and Plavix. 8. Depression. 9. Chronic low back pain. Patient primary care physician is Dr. Tyler Hermosillo.
[2016-08-27] MEDS: ACETAMINOPHEN TAB 325 MG TAB PO PRN (12:32)
[2016-08-27 15:04] LABS: Glucose,Whole Blood 219 mg/dL (75-99)
[2016-08-27 17:05] LABS: Glucose,Whole Blood 153 mg/dL (75-99)
--- NOTE | 2016-08-27 17:36 | CONS ---
DATE OF CONSULTATION: August 27, 2016. REASON FOR CONSULTATION: Anemia. CHIEF COMPLAINT: Tired. Rossi is a very pleasant 66-year-old lady very well-known to me since 2002. The patient is known to be noncompliant with her medical follow-ups. I initially saw her in 2002 for anemia, which was iron deficiency anemia. She could not tolerate oral iron supplement and she was provided with parenteral iron. Then in 2003 she developed vaginal bleeding and she had work-up and she was diagnosed with endometrial carcinoma. It went on for several years without any treatment due to the patient has been debating about her therapy due to the patient's reluctancy for treatment and in part related to her overweight and she was seen by multiple APPLIED PSYCHOLOGY CHAIR oncologist and due to extremely heavy overweight, was felt not to be a surgical candidate. Subsequently, she was seen by Dr. Christiansen at [facility] and she had radiation therapy to her endometrial carcinoma back around 2003 or 2004. Subsequently the patient followed up with behavioral homeopathic provider for several years and she did manage to lose over 100 pounds. Since I saw her, she has had multiple other complications. She had 3 strokes and 2 myocardial infarctions last year. She did have a colonoscopy and EGD in May [address] Ervin and was found to have esophagitis. The patient continued to have recurrent vaginal bleeding and was recently evaluated by Dr. Barron and subsequently she was seen by Dr. Amaya at [facility] and there is consideration to proceed with hysterectomy. The patient came back to see us after several years last month and she has been provided with parenteral iron supplement and also supportive blood transfusion. The patient now ended up being readmitted to the hospital to receive blood transfusion. Overall she feels tired, she managed to lose weight as stated above. She continued to have continuous slow vaginal bleeding all the time and she suffered neurological deficit in her right upper extremity from previous stroke. She ambulates with difficulties due to her weight and arthritis. No fever or night sweats. No dysphagia. No nausea or vomiting. No melena or hematuria, hemoptysis, hematemesis or epistaxis. Her past medical in addition to what is stated above in regard to her endometrial carcinoma, stroke, myocardial infarction. She has a history of hypertension, overweight, hyperlipidemia, fibromyalgia, diabetes, chronic kidney disease, COPD. SOCIAL HISTORY: She smoked from 1968 until 2014. She denies any alcohol abuse or substance abuse. FAMILY HISTORY: Her father had cancer. Her sister had cancer of the cervix and another sister had breast cancer. Medication and allergies are reviewed in her electronic record. On physical examination she is alert, oriented x3. She does not appear to be in distress at this time. Well-developed, well-nourished. Her vital signs are temperature 97.8, afebrile, pulse 65 regular, respiration 14, blood pressure 142/53. HEENT: Normocephalic, atraumatic. No obvious icterus. NECK: Supple. CHEST: Equal expansion bilaterally. Lungs are clear to auscultation and percussion. HEART: Regular rate and rhythm. ABDOMEN: Soft. No tenderness or organomegaly. EXTREMITIES: Trace edema. SKIN: Reveals a few bruises. No ecchymosis or petechiae. LYMPHATICS: No peripherally enlarged cervical, supraclavicular lymphadenopathy. MUSCULOSKELETAL: No percussion tenderness of her spine or sternum. LABORATORY DATA: WBC of 7.8, hemoglobin 6.5, hematocrit 20.8, platelets are 192. Sodium 138, potassium 4.1, chloride 104, CO2 is 23. BUN 71, creatinine 1.8. IMPRESSION: 1. Chronic anemia, in part related to iron deficiency anemia from her ongoing vaginal bleeding as stated above. Also she has chronic kidney disease likely contributing to her anemia as well. 2. Endometrial carcinoma with diagnostic and therapeutic circumstances as stated above. 3. Multiple other comorbidities. RECOMMENDATIONS: 1. Agree with blood transfusion. 2. The patient has been receiving parenteral iron infusion as well in the outpatient setting. 3. Unfortunately despite multiple treatment with parenteral iron and multiple supportive transfusion, it is going to be an ongoing problem unless she eventually has a hysterectomy, but unfortunately she is medically high risk for procedure, but I believe at this point in time, the benefit may outweigh the risk. She has a set up appointment in outpatient setting with Dr. Amaya at [facility] and I she is going to follow up with him upon discharge. Thank you very much for asking me to participate in the care of this nice lady.
[2016-08-27] MEDS ORDERED: FUROSEMIDE 40 MG TAB PO STA (18:12)
[2016-08-27 20:34] LABS: Glucose,Whole Blood 207 mg/dL (75-99)
[2016-08-27] MEDS ORDERED: ATORVASTATIN 80 MG TAB PO SCH (21:00)
[2016-08-27] MEDS ORDERED: CLOPIDOGREL 75 MG TAB PO SCH (21:00)
[2016-08-28 01:31] LABS: Glucose,Whole Blood 217 mg/dL (75-99)
[2016-08-28 07:31] LABS: Glucose,Whole Blood 231 mg/dL (75-99)
[2016-08-28 07:37] LABS: Anisocytosis Slight; CH 27.9; CHCM 32.1; HCT 25.3 % (34.0-46.0); HDW 4.39; Hypochromasia Moderate; MCH 27.8 pg (25.0-35.0); MCHC 31.8 g/dL (31.0-37.0); MCV 87.5 fL (80.0-100.0); Mean Platelet Volume 7.3; Poikilocytosis Moderate; RBC 2.89 m/uL (3.80-5.40); RDW 19.9 % (11.5-15.5); WBC 5.8 k/uL (3.8-10.6)
[2016-08-28 07:38] VITALS: BP 153/67; RESP 17; TEMP 98.5
[2016-08-28 07:38] LABS: Calcium 8.9 mg/dL (8.4-10.2); Potassium 3.9 mmol/L (3.5-5.1)
[2016-08-28] MEDS: PANTOPRAZOLE 40 MG TABLET PO SCH (07:56)
[2016-08-28] MEDS: CARVEDILOL 12.5 MG TAB PO SCH (07:56)
[2016-08-28] MEDS: amLODIPine 10 MG TAB PO SCH (07:56)
[2016-08-28] MEDS: INSULIN LISPRO (humaLOG) 300 UNIT/3 ML VIAL SQ SCH ×4 (07:56→12:11)
[2016-08-28] MEDS: INSULIN GLARGINE 100 UNIT/ML 10 ML VIAL SQ SCH (07:57)
[2016-08-28] MEDS ORDERED: ASPIRIN 81 MG CHEW PO SCH (09:00)
[2016-08-28] MEDS: ACETAMINOPHEN TAB 325 MG TAB PO PRN (09:40)
[2016-08-28 10:26] VITALS: PULSE 61
[2016-08-28] MEDS ORDERED: ONDANSETRON 4 MG/2 ML VIAL IVP STA (10:52)
--- NOTE | 2016-08-28 11:25 | DS ---
DATE OF ADMISSION: 08/26/2016 DATE OF DISCHARGE: Patient is a 66-year-old female admitted secondary to constant vaginal bleed. Patient is scheduled for surgery in [facility] on September 12 and patient received 2 units of transfusion, after which patient did clinically well. The other significant thing is I changed dose of Lasix 40 mg after which her kidney function did improve. I am expecting it to improve even better. Patient's BUN and creatinine are 49 and 1.57 respectively, after blood transfusion and cutting down on the dose of Lasix. BUN came down from 7.1 and 1.85 respectively and patient is otherwise, clinically doing well, but will need to follow with Dr. Dacosta quickly to make sure patient is not being volume overloaded, her ejection fraction is essentially within normal limits. Patient is otherwise, clinically doing well but still has a little bit of vaginal bleed which is constant and has been going on for some time for her. Nothing much can be done except for blood transfusion until she gets her surgery, hysterectomy done. Patient's fatigue, although improved significantly. Patient was seen and examined on the day of discharge. Vitals are stable. PHYSICAL EXAMINATION: GENERAL: The patient is alert and oriented x3, not in any acute distress. Well developed, well nourished. HEENT: Pupils are round and equally reacting to light. EOMI. No scleral icterus. No conjunctival pallor. Normocephalic, atraumatic. No pharyngeal erythema. No thyromegaly. CARDIOVASCULAR: S1 and S2 present. No murmurs, rubs, or gallops. PULMONARY: Chest is clear to auscultation, no wheezing or crackles. ABDOMEN: Soft, nontender, nondistended, normoactive bowel sounds. No palpable organomegaly. MUSCULOSKELETAL: No joint swelling or deformity. EXTREMITIES: No cyanosis, clubbing, or pedal edema. NEUROLOGICAL: Gross neurological examination did not reveal any focal deficits. SKIN: No rashes. FINAL DIAGNOSES: 1. Vaginal bleed, chronic. 2. Congestive heart failure, chronic diastolic dysfunction without any acute exacerbation, patient is in hypovolemic side. 3. Acute renal failure kidney secondary to prerenal azotemia due to excessive diuresis. 4. Diabetic nephropathy. 5. Type 2 diabetes mellitus. 6. Morbid obesity. 7. Coronary artery disease and patient had a stent placed less than a year ago, because of which patient needs to continue her aspirin and Plavix. 8. Depression. 9. Chronic low back pain. DISCHARGE DIET: Cardiac diet, ADA 1800 calorie diet. CHF discharge instructions will be provided. Patient will follow with Dr. Tyler Hermosillo in about 3 to 7 days; Dr. Dacosta in 3 to 7 days. Activity as tolerated. Spent greater than 35minutes in total discharge process.
[2016-08-28 11:55] LABS: Glucose,Whole Blood 176 mg/dL (75-99)
== END 2016-08-28 14:07 | disposition home or self-care (01) | DRG 812 ==
LOC: EC 15:53 → 5MS5E 17:16
PROVIDERS: ADMIT Internal Medicine; ATTEND Internal Medicine
PROC: 30233N1 Transfusion of Nonautologous Red Blood Cells into Peripheral Vein, Percutaneous Approach (ICD-10-PCS; principal; 2016-08-27)
DX: D50.9 Iron deficiency anemia, unspecified (principal); N17.9 Acute kidney failure, unspecified; E11.21 Type 2 diabetes mellitus with diabetic nephropathy; I50.32 Chronic diastolic (congestive) heart failure; I27.2 Other secondary pulmonary hypertension; E66.01 Morbid (severe) obesity due to excess calories; I13.0 Hypertensive heart and chronic kidney disease with heart failure and stage 1 through stage 4 chronic kidney disease, or unspecified chronic kidney disease; I69.351 Hemiplegia and hemiparesis following cerebral infarction affecting right dominant side; N93.9 Abnormal uterine and vaginal bleeding, unspecified; I25.10 Atherosclerotic heart disease of native coronary artery without angina pectoris; N18.3 Chronic kidney disease, stage 3 (moderate); R00.1 Bradycardia, unspecified; E86.1 Hypovolemia; T50.1X5A Adverse effect of loop [high-ceiling] diuretics, initial encounter; E78.5 Hyperlipidemia, unspecified; C54.1 Malignant neoplasm of endometrium; I25.2 Old myocardial infarction; J44.9 Chronic obstructive pulmonary disease, unspecified; I08.1 Rheumatic disorders of both mitral and tricuspid valves; R32 Unspecified urinary incontinence; R53.1 Weakness; M19.90 Unspecified osteoarthritis, unspecified site; J45.909 Unspecified asthma, uncomplicated; H40.9 Unspecified glaucoma; R26.2 Difficulty in walking, not elsewhere classified; E11.22 Type 2 diabetes mellitus with diabetic chronic kidney disease; K58.9 Irritable bowel syndrome, unspecified; I44.0 Atrioventricular block, first degree; K20.9 Esophagitis, unspecified; M54.5 Low back pain; G89.29 Other chronic pain; F32.9 Major depressive disorder, single episode, unspecified; G43.909 Migraine, unspecified, not intractable, without status migrainosus; M79.7 Fibromyalgia; F41.9 Anxiety disorder, unspecified; H26.9 Unspecified cataract; Z88.5 Allergy status to narcotic agent; Z88.8 Allergy status to other drugs, medicaments and biological substances; Z95.5 Presence of coronary angioplasty implant and graft; Z87.19 Personal history of other diseases of the digestive system; Z87.11 Personal history of peptic ulcer disease; Z92.3 Personal history of irradiation; Z87.891 Personal history of nicotine dependence; Z80.0 Family history of malignant neoplasm of digestive organs; Z82.3 Family history of stroke; Z80.49 Family history of malignant neoplasm of other genital organs; Z80.3 Family history of malignant neoplasm of breast; Z86.718 Personal history of other venous thrombosis and embolism; Z87.01 Personal history of pneumonia (recurrent); Z87.440 Personal history of urinary (tract) infections; Z79.02 Long term (current) use of antithrombotics/antiplatelets; Z79.82 Long term (current) use of aspirin; Z79.4 Long term (current) use of insulin; Z79.899 Other long term (current) drug therapy; Z90.49 Acquired absence of other specified parts of digestive tract; Z99.3 Dependence on wheelchair; Z68.37 Body mass index [BMI] 37.0-37.9, adult; Z91.19 Patient's noncompliance with other medical treatment and regimen; Z82.49 Family history of ischemic heart disease and other diseases of the circulatory system; Z81.1 Family history of alcohol abuse and dependence; Z83.79 Family history of other diseases of the digestive system
CPT/HCPCS: 36415; 71020; 80048; 80053; 82550; 82553; 83735; 84484; 85025; 85027; 85610; 85730; 86850; 86870; 86880; 86885; 86900; 86901; 86902; 86920; 93005; 99211; 99285

== ENCOUNTER → 2016-08-31 | Outpatient (CLI) | payer MEDICARE ==
[2016-08-31 15:03] LABS: Anisocytosis Slight; Basophils % (A) 0 %; Eosinophils # (A) 0.3 k/uL (0-0.7); Eosinophils % (A) 5 %; HCT 28.4 % (34.0-46.0); HDW 4.01; Hypochromasia Moderate; Luc # (Auto) 0.11; Luc % (Auto) 2; Lymphocytes # (A) 0.9 k/uL (1.0-4.8); Lymphocytes % (A) 13 %; MCHC 31.7 g/dL (31.0-37.0); MCV 88.2 fL (80.0-100.0); Mean Platelet Volume 8.4; Monocytes # (A) 0.3 k/uL (0-1.0); Monocytes % (A) 5 %; Neutrophils # (A) 4.8 k/uL (1.3-7.7); Neutrophils % (A) 74 %; Poikilocytosis Moderate; RBC 3.22 m/uL (3.80-5.40); RDW 19.4 % (11.5-15.5); WBC 6.5 k/uL (3.8-10.6); WBC (Perox) 6.92
[2016-08-31 15:14] LABS: Calcium 8.8 mg/dL (8.4-10.2); Potassium 4.4 mmol/L (3.5-5.1); Total Bilirubin 0.5 mg/dL (0.2-1.3); Total Protein 6.4 g/dL (6.3-8.2)
[2016-09-01 08:09] LABS: Hemoglobin A1C 5.1 % (4.2-6.1)
== END | disposition home or self-care (01) ==
LOC: LABWHC1 14:41
PROVIDERS: ATTEND Nurse Practitioner Family
DX: N93.9 Abnormal uterine and vaginal bleeding, unspecified (principal); E11.65 Type 2 diabetes mellitus with hyperglycemia; N28.9 Disorder of kidney and ureter, unspecified
CPT/HCPCS: 36415; 80053; 83036; 85025

== ENCOUNTER 2016-09-06 14:06 | Emergency (ER) | payer MEDICARE ==
[2016-09-06] MEDS ORDERED: SODIUM CHLORIDE 0.9% 1,000 ML IV ONE (15:10)
--- NOTE | 2016-09-06 15:15 | ED ---
General Adult HPI - General Chief complaint: Nausea/Vomiting/Diarrhea Stated complaint: nausea,dizzy Uterine bleeding Time Seen by Provider: 09/06/16 15:00 Source: patient, RN notes reviewed Mode of arrival: wheelchair Limitations: no limitations - History of Present Illness Initial comments: Patient is a 66-year-old female presents to the emergency room for evaluation of nausea and dizziness. Patient states she feels like the room is spinning around her. Patient states she was here about 2 weeks ago for anemia. Patient states she's been experiencing uterine bleeding for the past 2 months. Patient states she had radiation for endometrial cancer about 15 years ago which has resolved but began developing uterine bleeding as a result. Patient states that she is supposed to follow up with a surgeon to perform hysterectomy because she's high risk. Patient states over the past 2 days she began developing increased dizziness and nausea. Patient states symptoms are similar to last time she was here for anemia. Patient also states had increased cough. Patient states she was told she had fluid on her lungs last time she was here. Patient states she experienced mild chest pain yesterday but it went away after she took nitro. Patient denies any current chest pain. Patient states shortness of breath. Patient denies fevers or chills. Patient states she's gone through about 3 pads today. Patient has any abdominal pain. Patient has pain or burning during urination, trouble urinating or blood in urine. Patient denies blood in stools. - Related Data Home Medications Medication Instructions Recorded Confirmed Clopidogrel [Plavix] 75 mg PO HS 06/12/15 09/06/16 Insulin Glargine [Lantus] 65 unit SQ HS 01/15/16 09/06/16 Albuterol Sulfate [Proventil Hfa] 2 puff INHALATION RT-Q4H PRN 02/15/16 09/06/16 Carvedilol [Coreg] 25 mg PO BID 08/07/16 09/06/16 Insulin Aspart [NovoLOG] 20 unit SQ AC-TID 08/07/16 09/06/16 Insulin Glargine [Lantus] 10 unit SQ QAM 08/07/16 09/06/16 Nitroglycerin Sl Tabs [Nitrostat] 0.4 mg SUBLINGUAL Q5M PRN 08/07/16 09/06/16 Dicyclomine HCl 1 cap PO Q8HR 08/26/16 09/06/16 Nystatin 100,000 Unit/gm Powd 1 applic TOPICAL BID PRN 08/26/16 09/06/16 [Mycostatin Powder] Furosemide [Lasix] 40 mg PO BID 09/06/16 09/06/16 Spironolactone [Aldactone] 25 mg PO DAILY@1200 09/06/16 09/06/16 Previous Rx's Medication Instructions Recorded Atorvastatin [Lipitor] 80 mg PO HS #30 tab 06/16/15 Pantoprazole Sodium [Protonix] 40 mg PO DAILY #30 tablet. 06/21/15 Aspirin 81 mg PO DAILY chew 08/28/15 amLODIPine [Norvasc] 10 mg PO DAILY #30 tab 07/20/16 Meclizine [Antivert] 12.5 mg PO Q6H PRN #12 tablet 09/06/16 Allergies Allergy/AdvReac Type Severity Reaction Status Date / Time hydralazine Allergy Severe Anaphylaxis Verified 09/06/16 16:08 codeine AdvReac Hallucinati Verified 09/06/16 16:08 ons hydrocodone AdvReac Hallucinati Verified 09/06/16 16:08 ons lisinopril AdvReac Rapid Verified 09/06/16 16:08 Heart Rate Review of Systems ROS Statement: Those systems with pertinent positive or pertinent negative responses have been documented in the HPI. ROS Other: All systems not noted in ROS Statement are negative. Past Medical History Past Medical History: Asthma, Cancer, Heart Failure, COPD, CVA/TIA, Diabetes Mellitus, Eye Disorder, Fibromyalgia, GI Bleed, Hyperlipidemia, Hypertension, Myocardial Infarction (NM), Osteoarthritis (OA), Pneumonia Additional Past Medical History / Comment(s): Pt recently admitted on 07/08/15 with acute blood loss anemia, possible uterine lesion/cancer (pt has hx of uterine cancer tx with radiation), cystitis and vaginal bleeding. 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 Last Myocardial Infarction Date:: 06/12/15 History of Any Multi-Drug Resistant Organisms: None Reported Past Surgical History: Cholecystectomy, Heart Catheterization, Heart Catheterization With Stent Additional Past Surgical History / Comment(s): 06/12/15 Cardiac cath, 06/15/15 PTCA with stent mid L main, D&C X2, YRS AGO HAD A DEVICE IN FOR RADIATION TX FOR UTERINE CA THAT WAS SINCE REMOVED.EGD/COLONOSCOPY.02/18/16 heart cath 3 stents to rca Past Anesthesia/Blood Transfusion Reactions: Motion Sickness Additional Past Anesthesia/Blood Transfusion Reaction / Comment(s): CLAUSTROPHOBIA. Pt has had blood transfusion in past-no reaction to blood Date of Last Stent Placement:: 02/18/16 Past Psychological History: Anxiety, Depression Additional Psychological History / Comment(s): Pt resides with her spouse. She is basically wheel chair bound most of the time for the past several yrs. She at times ambulates with assistance or pushes her wheelchair. She feeds herself. She has a supportive family. She has a sister that helps with her bathing and her олег and spouse will help with her medication. 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 Mother Family Medical History: CVA/TIA Additional Family Medical History / Comment(s): HEART PROBLEMS, STARTED DRINKING AFTER OF HER , she of a ruptured liver at age 58 yrs. General Exam - General Exam Comments Initial Comments: Sitting in exam room in no acute distress. Limitations: no limitations General appearance: alert, in no apparent distress Head exam: Present: atraumatic, normocephalic, normal inspection Eye exam: Present: normal appearance, PERRL, EOMI Pupils: Present: normal accommodation ENT exam: Present: normal exam Neck exam: Present: normal inspection Respiratory exam: Absent: respiratory distress Cardiovascular Exam: Present: regular rate, normal rhythm, normal heart sounds GI/Abdominal exam: Present: soft, normal bowel sounds. Absent: distended, tenderness, guarding, rebound, rigid Extremities exam: Present: normal inspection Back exam: Present: normal inspection Neurological exam: Present: alert, oriented X3, CN II-XII intact, normal gait Expanded Patient oriented to: Present: person, place, time Speech: Present: fluid speech Cranial nerves: EOM's Intact: Normal, Facial Sensation: Normal Sensory exam: Upper Extremity Light Touch: Normal, Lower Extremity Light Touch: Normal Eye Response: (4) open spontaneously Motor Response: (6) obeys commands Verbal Response: (5) oriented Psychiatric exam: Present: normal affect, normal mood Skin exam: Present: warm, dry, intact, normal color. Absent: rash Course Vital Signs 09/06/16 09/06/16 09/06/16 14:10 17:06 18:13 Temperature 97.7 F 97.8 F Pulse Rate 60 78 60 Respiratory 18 16 18 Rate Blood Pressure 180/71 138/70 169/68 O2 Sat by Pulse 98 95 100 Oximetry Medical Decision Making - Medical Decision Making Patient is 66-year-old female presents to the emergency room for evaluation of dizziness. Cardiac workup negative. Patient's hemoglobin 8.9. Chest x-ray shows improvement from last chest x-ray on 08/31/16. Brain CT shows no acute findings. Patient states she is feeling better after Antivert. Patient is able to walk around with no complaints of dizziness. Patient states she feels better and would like to be discharged home. Advised patient to follow-up with her primary care provider. Patient states she understands everything that was discussed with her. Return parameters discussed. Case discussed with Dr. Burnett. - Lab Data Result diagrams: 09/06/16 15:34 09/06/16 15:34 Lab Results 09/06/16 09/06/16 09/06/16 Range/Units 15:26 15:34 15:34 WBC 5.8 (3.8-10.6) k/uL RBC 3.20 L (3.80-5.40) m/uL Hgb 8.9 L (11.4-16.0) gm/dL Hct 27.9 L (34.0-46.0) % MCV 87.1 (80.0-100.0) fL MCH 28.0 (25.0-35.0) pg MCHC 32.1 (31.0-37.0) g/dL RDW 17.3 H (11.5-15.5) % Plt Count 155 (150-450) k/uL Neutrophils % 73 % Lymphocytes % 14 % Monocytes % 4 % Eosinophils % 6 % Basophils % 0 % Neutrophils # 4.2 (1.3-7.7) k/uL Lymphocytes # 0.8 L (1.0-4.8) k/uL Monocytes # 0.2 (0-1.0) k/uL Eosinophils # 0.4 (0-0.7) k/uL Basophils # 0.0 (0-0.2) k/uL Hypochromasia Slight Poikilocytosis Slight Anisocytosis Slight PT (9.0-12.0) sec INR (<1.1) APTT (22.0-30.0) sec Sodium 139 (137-145) mmol/L Potassium 4.7 (3.5-5.1) mmol/L Chloride 103 (98-107) mmol/L Carbon Dioxide 25 (22-30) mmol/L Anion Gap 11 mmol/L BUN 53 H (7-17) mg/dL Creatinine 1.52 H (0.52-1.04) mg/dL Est GFR (MDRD) Af Amer 42 (>60 ml/min/1.73 sqM) Est GFR (MDRD) Non-Af 34 (>60 ml/min/1.73 sqM) Glucose 319 H (74-99) mg/dL POC Glucose (mg/dL) 341 H (75-99) mg/dL POC Glu Yard Conductor ID Bowling, Amy Calcium 9.1 (8.4-10.2) mg/dL Magnesium 2.0 (1.6-2.3) mg/dL Total Bilirubin 0.6 (0.2-1.3) mg/dL AST 15 (14-36) U/L ALT 29 (9-52) U/L Alkaline Phosphatase 101 (38-126) U/L Total Creatine Kinase (30-135) U/L CK-MB (CK-2) (0.0-2.4) ng/mL CK-MB (CK-2) Rel Index Troponin I (0.000-0.034) ng/mL Total Protein 6.2 L (6.3-8.2) g/dL Albumin 3.4 L (3.5-5.0) g/dL Urine Color Urine Appearance (Clear) Urine pH (5.0-8.0) Ur Specific [place] (1.001-1.035) Urine Protein (Negative) Urine Glucose (UA) (Negative) Urine Ketones (Negative) Urine Blood (Negative) Urine Nitrate (Negative) Urine Bilirubin (Negative) Urine Urobilinogen (<2.0) mg/dL Ur Leukocyte Esterase (Negative) Urine RBC (0-5) /hpf Urine WBC (0-5) /hpf Urine WBC Clumps (None) /hpf Urine Bacteria (None) /hpf Hyaline Casts (0-2) /lpf Urine Mucus (None) /hpf 09/06/16 09/06/16 09/06/16 Range/Units 15:34 15:34 16:56 WBC (3.8-10.6) k/uL RBC (3.80-5.40) m/uL Hgb (11.4-16.0) gm/dL Hct (34.0-46.0) % MCV (80.0-100.0) fL MCH (25.0-35.0) pg MCHC (31.0-37.0) g/dL RDW (11.5-15.5) % Plt Count (150-450) k/uL Neutrophils % % Lymphocytes % % Monocytes % % Eosinophils % % Basophils % % Neutrophils # (1.3-7.7) k/uL Lymphocytes # (1.0-4.8) k/uL Monocytes # (0-1.0) k/uL Eosinophils # (0-0.7) k/uL Basophils # (0-0.2) k/uL Hypochromasia Poikilocytosis Anisocytosis PT 10.9 (9.0-12.0) sec INR 1.1 (<1.1) APTT 23.9 (22.0-30.0) sec Sodium (137-145) mmol/L Potassium (3.5-5.1) mmol/L Chloride (98-107) mmol/L Carbon Dioxide (22-30) mmol/L Anion Gap mmol/L BUN (7-17) mg/dL Creatinine (0.52-1.04) mg/dL Est GFR (MDRD) Af Amer (>60 ml/min/1.73 sqM) Est GFR (MDRD) Non-Af (>60 ml/min/1.73 sqM) Glucose (74-99) mg/dL POC Glucose (mg/dL) 310 H (75-99) mg/dL POC Glu Yard Conductor ID Noa Bear Calcium (8.4-10.2) mg/dL Magnesium (1.6-2.3) mg/dL Total Bilirubin (0.2-1.3) mg/dL AST (14-36) U/L ALT (9-52) U/L Alkaline Phosphatase (38-126) U/L Total Creatine Kinase 53 (30-135) U/L CK-MB (CK-2) 1.3 (0.0-2.4) ng/mL CK-MB (CK-2) Rel Index 2.5 Troponin I <0.012 (0.000-0.034) ng/mL Total Protein (6.3-8.2) g/dL Albumin (3.5-5.0) g/dL Urine Color Urine Appearance (Clear) Urine pH (5.0-8.0) Ur Specific [place] (1.001-1.035) Urine Protein (Negative) Urine Glucose (UA) (Negative) Urine Ketones (Negative) Urine Blood (Negative) Urine Nitrate (Negative) Urine Bilirubin (Negative) Urine Urobilinogen (<2.0) mg/dL Ur Leukocyte Esterase (Negative) Urine RBC (0-5) /hpf Urine WBC (0-5) /hpf Urine WBC Clumps (None) /hpf Urine Bacteria (None) /hpf Hyaline Casts (0-2) /lpf Urine Mucus (None) /hpf 09/06/16 Range/Units 17:22 WBC (3.8-10.6) k/uL RBC (3.80-5.40) m/uL Hgb (11.4-16.0) gm/dL Hct (34.0-46.0) % MCV (80.0-100.0) fL MCH (25.0-35.0) pg MCHC (31.0-37.0) g/dL RDW (11.5-15.5) % Plt Count (150-450) k/uL Neutrophils % % Lymphocytes % % Monocytes % % Eosinophils % % Basophils % % Neutrophils # (1.3-7.7) k/uL Lymphocytes # (1.0-4.8) k/uL Monocytes # (0-1.0) k/uL Eosinophils # (0-0.7) k/uL Basophils # (0-0.2) k/uL Hypochromasia Poikilocytosis Anisocytosis PT (9.0-12.0) sec INR (<1.1) APTT (22.0-30.0) sec Sodium (137-145) mmol/L Potassium (3.5-5.1) mmol/L Chloride (98-107) mmol/L Carbon Dioxide (22-30) mmol/L Anion Gap mmol/L BUN (7-17) mg/dL Creatinine (0.52-1.04) mg/dL Est GFR (MDRD) Af Amer (>60 ml/min/1.73 sqM) Est GFR (MDRD) Non-Af (>60 ml/min/1.73 sqM) Glucose (74-99) mg/dL POC Glucose (mg/dL) (75-99) mg/dL POC Glu Yard Conductor ID Calcium (8.4-10.2) mg/dL Magnesium (1.6-2.3) mg/dL Total Bilirubin (0.2-1.3) mg/dL AST (14-36) U/L ALT (9-52) U/L Alkaline Phosphatase (38-126) U/L Total Creatine Kinase (30-135) U/L CK-MB (CK-2) (0.0-2.4) ng/mL CK-MB (CK-2) Rel Index Troponin I (0.000-0.034) ng/mL Total Protein (6.3-8.2) g/dL Albumin (3.5-5.0) g/dL Urine Color Yellow Urine Appearance Cloudy H (Clear) Urine pH 5.0 (5.0-8.0) Ur Specific [place] 1.007 (1.001-1.035) Urine Protein 1+ H (Negative) Urine Glucose (UA) Negative (Negative) Urine Ketones Negative (Negative) Urine Blood Large H (Negative) Urine Nitrate Negative (Negative) Urine Bilirubin Negative (Negative) Urine Urobilinogen <2.0 (<2.0) mg/dL Ur Leukocyte Esterase Moderate H (Negative) Urine RBC >182 H (0-5) /hpf Urine WBC 52 H (0-5) /hpf Urine WBC Clumps Occasional H (None) /hpf Urine Bacteria Many H (None) /hpf Hyaline Casts 7 H (0-2) /lpf Urine Mucus Rare H (None) /hpf - Radiology Data Radiology results: report reviewed, image reviewed Disposition Clinical Impression: Dizziness, Hyperglycemia Disposition: HOME SELF-CARE Condition: Good Instructions: Dizziness (ED), Diabetic Hyperglycemia (ED) Additional Instructions: Take Antivert as needed. Continue taking NovoLog and Lantus as directed. Take at home medications as directed. Please follow up with primary care provider in 1-2 days. If any new symptom arises or symptoms worsen, return to ER as soon as possible. Prescriptions: Meclizine [Antivert] 12.5 mg PO Q6H PRN #12 tablet PRN Reason: Motion Sickness Referrals: Tyler Hermosillo DO [Primary Care Provider] - 1-2 days Time of Disposition: 17:57
[2016-09-06 15:28] LABS: Glucose,Whole Blood 341 mg/dL (75-99)
[2016-09-06 15:47] LABS: Anisocytosis Slight; Basophils % (A) 0 %; CH 28.3; CHCM 32.7; Eosinophils # (A) 0.4 k/uL (0-0.7); Eosinophils % (A) 6 %; HCT 27.9 % (34.0-46.0); HDW 3.97; HGB 8.9 gm/dL (11.4-16.0); Hypochromasia Slight; Luc # (Auto) 0.14; Luc % (Auto) 2; Lymphocytes # (A) 0.8 k/uL (1.0-4.8); Lymphocytes % (A) 14 %; MCHC 32.1 g/dL (31.0-37.0); MCV 87.1 fL (80.0-100.0); Mean Platelet Volume 8.4; Monocytes # (A) 0.2 k/uL (0-1.0); Monocytes % (A) 4 %; Neutrophils # (A) 4.2 k/uL (1.3-7.7); Neutrophils % (A) 73 %; Poikilocytosis Slight; RDW 17.3 % (11.5-15.5); WBC 5.8 k/uL (3.8-10.6); WBC (Perox) 5.91
[2016-09-06 15:55] LABS: Calcium 9.1 mg/dL (8.4-10.2); Potassium 4.7 mmol/L (3.5-5.1); Total Bilirubin 0.6 mg/dL (0.2-1.3); Total Protein 6.2 g/dL (6.3-8.2)
[2016-09-06] MEDS ORDERED: INSULIN LISPRO (humaLOG) 300 UNIT/3 ML VIAL SQ ONE (15:57)
[2016-09-06 16:02] LABS: Creatine Kinase 53 U/L (30-135)
[2016-09-06 16:14] LABS: Creatine Kinase MB 1.3 ng/mL (0.0-2.4); Troponin I <0.012 ng/mL (0.000-0.034)
[2016-09-06 16:17] LABS: INR 1.1 (<1.1); Partial Thromboplastin Time 23.9 sec (22.0-30.0); Prothrombin Time 10.9 sec (9.0-12.0)
--- NOTE | 2016-09-06 16:17 | XR ---
EXAMINATION TYPE: XR chest 2V DATE OF EXAM: 09/06/2016 3:55 PM COMPARISON: 08/31/2016 INDICATION: Cough dizziness TECHNIQUE: Single frontal view of the chest is obtained. FINDINGS: The heart size is normal. The pulmonary vasculature is normal. Minimal subsegmental atelectasis may remain at the left base. Mild right lower lobe infiltrate may be present in the frontal view. Findings have improved IMPRESSION: 1. Mild bibasilar infiltrates may be present. The findings have improved from prior study
[2016-09-06 17:00] LABS: Glucose,Whole Blood 310 mg/dL (75-99)
[2016-09-06 17:07] VITALS: TEMP 97.8
--- NOTE | 2016-09-06 17:17 | CT ---
EXAMINATION TYPE: CT brain wo con DATE OF EXAM: 09/06/2016 5:12 PM COMPARISON: NONE HISTORY: Dizziness. CT DLP: 1183.[address] of the brain was performed. The ventricles, basal cisterns and sulci overlying the cerebral convexities demonstrate mild enlargem ent. There is no evidence for intracranial hemorrhage or sulcal effacement. There is decreased attenuation about the periventricular white matter and deep white matter of both c erebral hemispheres, compatible with chronic small vessel ischemia. Differential diagnosis does inclu de demyelination. No mass effects are seen.No midline shift. Osseous calvarium is intact. Physiologic calcifications are noted within the basal ganglia bilateral ly. If symptoms persist consider MRI. IMPRESSION: 1. Age related atrophic and chronic small vessel ischemic change without acute intracranial process s een at this time.
[2016-09-06] MEDS ORDERED: MECLIZINE 12.5 MG TAB PO STA (17:21)
[2016-09-06 17:35] LABS: Appearance,Urine Cloudy (Clear); Bacteria,Urine Many /hpf; Bilirubin,Urine Negative (Negative); Glucose,Urine (UA) Negative (Negative); Ketones,Urine Negative (Negative); Leukocyte Esterase,Urine Moderate (Negative); Mucus,Urine Rare /hpf; Nitrite,Urine Negative (Negative); Particle Count 5454; Protein,Urine 1+ (Negative); RBC,Urine >182 /hpf (0-5); Specific Gravity,Urine 1.007 (1.001-1.035); UA Billing (MACRO vs. MICRO) MICRO; Urobilinogen,Urine <2.0 mg/dL (<2.0); WBC,Urine 52 /hpf (0-5)
[2016-09-06 18:15] VITALS: BP 169/68; PULSE 60; RESP 18
== END 2016-09-06 18:13 | disposition home or self-care (01) ==
LOC: EC 14:06
DX: E11.65 Type 2 diabetes mellitus with hyperglycemia (principal); J45.909 Unspecified asthma, uncomplicated; J44.9 Chronic obstructive pulmonary disease, unspecified; E78.5 Hyperlipidemia, unspecified; I50.9 Heart failure, unspecified; I10 Essential (primary) hypertension; M19.90 Unspecified osteoarthritis, unspecified site; K58.9 Irritable bowel syndrome, unspecified; I25.2 Old myocardial infarction; Z79.02 Long term (current) use of antithrombotics/antiplatelets; Z79.4 Long term (current) use of insulin; Z79.899 Other long term (current) drug therapy; Z88.5 Allergy status to narcotic agent; Z88.8 Allergy status to other drugs, medicaments and biological substances; Z86.73 Personal history of transient ischemic attack (TIA), and cerebral infarction without residual deficits; Z87.01 Personal history of pneumonia (recurrent); Z85.42 Personal history of malignant neoplasm of other parts of uterus; Z90.49 Acquired absence of other specified parts of digestive tract; Z95.5 Presence of coronary angioplasty implant and graft
CPT/HCPCS: 36415; 70450; 71020; 80053; 81001; 82550; 82553; 83735; 84484; 85025; 85610; 85730; 93005; 96360; 96361; 99284

== ENCOUNTER 2016-09-17 16:04 | Emergency (ER) | payer MEDICARE ==
[2016-09-17] MEDS ORDERED: ONDANSETRON 4 MG/2 ML VIAL IVP STA (16:27)
[2016-09-17] MEDS ORDERED: SODIUM CHLORIDE 0.9% 500 ML IV STA (16:27)
--- NOTE | 2016-09-17 16:56 | ED ---
General Adult HPI - General Chief complaint: Nausea/Vomiting/Diarrhea Stated complaint: Dizziness Time Seen by Provider: 09/17/16 16:20 Source: patient, family, RN notes reviewed, old records reviewed Mode of arrival: wheelchair Limitations: no limitations - History of Present Illness Initial comments: 66-year-old female presenting for abdominal pain and nausea. Patient also states that she had some dizziness associated earlier but this is resolved. She states that she has been feeling ill for the past 2 days. States that she does have a history of IBS and has had more diarrhea over the past 5 days the normal. Denies any fevers or chills. She denies any vomiting. States she does have Zofran at home but did not take it. She denies any chest pain or shortness of breath. States she had abdominal pain which was worse earlier today but is mostly resolved at this time. - Related Data Home Medications Medication Instructions Recorded Confirmed Clopidogrel [Plavix] 75 mg PO HS 06/12/15 09/17/16 Insulin Glargine [Lantus] 65 unit SQ HS 01/15/16 09/17/16 Albuterol Sulfate [Proventil Hfa] 2 puff INHALATION RT-Q4H PRN 02/15/16 09/17/16 Carvedilol [Coreg] 25 mg PO BID 08/07/16 09/17/16 Insulin Aspart [NovoLOG] 20 unit SQ AC-TID 08/07/16 09/17/16 Insulin Glargine [Lantus] 10 unit SQ QAM 08/07/16 09/17/16 Nitroglycerin Sl Tabs [Nitrostat] 0.4 mg SUBLINGUAL Q5M PRN 08/07/16 09/17/16 Dicyclomine HCl 1 cap PO Q8HR 08/26/16 09/17/16 Nystatin 100,000 Unit/gm Powd 1 applic TOPICAL BID PRN 08/26/16 09/17/16 [Mycostatin Powder] Furosemide [Lasix] 40 mg PO BID 09/06/16 09/17/16 Spironolactone [Aldactone] 25 mg PO MOWEFR 09/06/16 09/17/16 Previous Rx's Medication Instructions Recorded Atorvastatin [Lipitor] 80 mg PO HS #30 tab 06/16/15 Pantoprazole Sodium [Protonix] 40 mg PO DAILY #30 tablet. 06/21/15 Aspirin 81 mg PO DAILY chew 08/28/15 amLODIPine [Norvasc] 10 mg PO DAILY #30 tab 07/20/16 Meclizine [Antivert] 12.5 mg PO Q6H PRN #12 tablet 09/06/16 Allergies Allergy/AdvReac Type Severity Reaction Status Date / Time hydralazine Allergy Severe Anaphylaxis Verified 09/17/16 17:09 codeine AdvReac Hallucinati Verified 09/17/16 17:09 ons hydrocodone AdvReac Hallucinati Verified 09/17/16 17:09 ons lisinopril AdvReac Rapid Verified 09/17/16 17:09 Heart Rate Review of Systems ROS Statement: Those systems with pertinent positive or pertinent negative responses have been documented in the HPI. ROS Other: All systems not noted in ROS Statement are negative. Past Medical History Past Medical History: Asthma, Cancer, Heart Failure, COPD, CVA/TIA, Diabetes Mellitus, Eye Disorder, Fibromyalgia, GI Bleed, Hyperlipidemia, Hypertension, Myocardial Infarction (MD), Osteoarthritis (OA), Pneumonia Additional Past Medical History / Comment(s): Pt recently admitted on 07/08/15 with acute blood loss anemia, possible uterine lesion/cancer (pt has hx of uterine cancer tx with radiation), cystitis and vaginal bleeding. 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 Last Myocardial Infarction Date:: 06/12/15 History of Any Multi-Drug Resistant Organisms: None Reported Past Surgical History: Cholecystectomy, Heart Catheterization, Heart Catheterization With Stent Additional Past Surgical History / Comment(s): 06/12/15 Cardiac cath, 06/15/15 PTCA with stent mid L main, D&C X2, YRS AGO HAD A DEVICE IN FOR RADIATION TX FOR UTERINE CA THAT WAS SINCE REMOVED.EGD/COLONOSCOPY.02/18/16 heart cath 3 stents to rca Past Anesthesia/Blood Transfusion Reactions: Motion Sickness Additional Past Anesthesia/Blood Transfusion Reaction / Comment(s): CLAUSTROPHOBIA. Pt has had blood transfusion in past-no reaction to blood Date of Last Stent Placement:: 02/18/16 Past Psychological History: Anxiety, Depression Additional Psychological History / Comment(s): Pt resides with her spouse. She is basically wheel chair bound most of the time for the past several yrs. She at times ambulates with assistance or pushes her wheelchair. She feeds herself. She has a supportive family. She has a sister that helps with her bathing and her олег and spouse will help with her medication. 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 Mother Family Medical History: CVA/TIA Additional Family Medical History / Comment(s): HEART PROBLEMS, STARTED DRINKING AFTER OF HER , she of a ruptured liver at age 59 yrs. General Exam - General Exam Comments Initial Comments: General: Awake and Alert. No acute distress. Does not appear acutely ill. Obese. Eyes: OLIMPIA, EOM intact. No nystagmus. No scleral icterus. HENT: Atraumatic, normocephalic. Mucous membranes moist. Trachea midline. Neck: The neck is supple, there is no tenderness or JVD. Cardiovascular: Regular rate and rhythm. No murmur, rub, or gallop is appreciated. Distal pulses intact. Respiratory: Lungs are clear to auscultation bilaterally. No wheezes, rales, rhonchi. No respiratory distress. Gastrointestinal: Soft, Nontender. No rebound or guarding. Non-distended. No masses or organomegaly noted. No CVA tenderness. Musculoskeletal: No tenderness. Normal ROM. No gross deformity. No strength deficits. Neurological: A&Ox3. CN II-XII grossly intact, There are no obvious motor or sensory deficits. Coordination appears grossly intact. Speech is normal. Skin: Skin is warm and dry and no rashes or lesions are noted. Psychiatric: Cooperative, appropriate mood & affect, normal judgment. Limitations: no limitations Course Vital Signs 09/17/16 16:06 Temperature 99.2 F Pulse Rate 69 Respiratory 20 Rate Blood Pressure 157/67 O2 Sat by Pulse 97 Oximetry EKG Findings - EKG Comments: EKG Findings:: EKG 16:33. Sinus rhythm. Rate 64. FL to 30. QRS 92. QT/QTc 420/433. Normal axis. Nonspecific ST and T-wave abnormalities. No STEMI. Abnormal EKG. Similar to prior EKG 09/06/2016. Medical Decision Making - Medical Decision Making 66-year-old female with history of chronic abdominal pain and recurrent nausea vomiting presenting for abdominal pain and nausea and vomiting. Initial examination patient appears stable. She is no significant abdominal tenderness on exam or evidence of acute peritonitis. Lab work was performed which is grossly unremarkable. Low suspicion of significant intra-abdominal infectious etiology. She does have some noted NIMA in the setting of CKD likely secondary to hypovolemia. Was given IV fluids in the ED. Likely some degree of dehydration as she states she's had diarrhea over the past several days. Given her reassuring workup and stable hemoglobin, patient appears stable for discharge home. She states she is feeling significantly improved after IV fluids and Zofran. She denies any abdominal pain on reexamination. States she has Bentyl at home which usually does well for abdominal pain. She also has Zofran at home. She does not appear to require inpatient admission for further workup at this time. She denied any chest pain or shortness of breath associated. Discussed close follow-up with her PCP. Discussed concerning signs symptoms for immediate return to the ED. Patient is agreeable with plan of discharge home. - Lab Data Result diagrams: 09/17/16 16:45 09/17/16 16:45 Lab Results 09/17/16 09/17/16 09/17/16 Range/Units 16:40 16:45 16:45 WBC 6.8 (3.8-10.6) k/uL RBC 2.82 L (3.80-5.40) m/uL Hgb 7.8 L (11.4-16.0) gm/dL Hct 23.4 L (34.0-46.0) % MCV 82.9 (80.0-100.0) fL MCH 27.6 (25.0-35.0) pg MCHC 33.3 (31.0-37.0) g/dL RDW 16.7 H (11.5-15.5) % Plt Count 184 (150-450) k/uL Neutrophils % 73 % Lymphocytes % 14 % Monocytes % 5 % Eosinophils % 6 % Basophils % 0 % Neutrophils # 5.0 (1.3-7.7) k/uL Lymphocytes # 1.0 (1.0-4.8) k/uL Monocytes # 0.3 (0-1.0) k/uL Eosinophils # 0.4 (0-0.7) k/uL Basophils # 0.0 (0-0.2) k/uL Hypochromasia Slight Poikilocytosis Moderate Anisocytosis Slight Sodium 141 (137-145) mmol/L Potassium 4.0 (3.5-5.1) mmol/L Chloride 104 (98-107) mmol/L Carbon Dioxide 23 (22-30) mmol/L Anion Gap 14 mmol/L BUN 61 H (7-17) mg/dL Creatinine 1.99 H (0.52-1.04) mg/dL Est GFR (MDRD) Af Amer 30 (>60 ml/min/1.73 sqM) Est GFR (MDRD) Non-Af 25 (>60 ml/min/1.73 sqM) Glucose 253 H (74-99) mg/dL Calcium 8.9 (8.4-10.2) mg/dL Magnesium 2.1 (1.6-2.3) mg/dL Total Bilirubin 0.4 (0.2-1.3) mg/dL AST 14 (14-36) U/L ALT 25 (9-52) U/L Alkaline Phosphatase 121 (38-126) U/L Total Protein 6.4 (6.3-8.2) g/dL Albumin 3.5 (3.5-5.0) g/dL Lipase 172 (23-300) U/L Influenza Type A RNA Not Detected (Not Detectd) Influenza Type B (PCR) Not Detected (Not Detectd) - EKG Data -: EKG Interpreted by Mo EKG shows normal: sinus rhythm Rate: normal When compared to previous EKG there are: no significant change Interpretation: no acute changes Disposition Clinical Impression: Nausea & vomiting, Abdominal pain, Diarrhea Disposition: HOME SELF-CARE Condition: Stable Instructions: Abdominal Pain (ED), Acute Nausea and Vomiting (ED) Additional Instructions: Please take your Zofran and Bentyl for symptomatic management. If any of your symptoms worsen, you you develop high fevers, please return to the ER right away. Referrals: Tyler Hermosillo DO [Primary Care Provider] - 1-2 days Time of Disposition: 18:34
[2016-09-17 17:04] LABS: Anisocytosis Slight; Basophils % (A) 0 %; CH 27.3; CHCM 33.1; Eosinophils # (A) 0.4 k/uL (0-0.7); Eosinophils % (A) 6 %; HCT 23.4 % (34.0-46.0); HDW 4.27; HGB 7.8 gm/dL (11.4-16.0); Hypochromasia Slight; Luc # (Auto) 0.16; Luc % (Auto) 2; Lymphocytes % (A) 14 %; MCH 27.6 pg (25.0-35.0); MCHC 33.3 g/dL (31.0-37.0); MCV 82.9 fL (80.0-100.0); Mean Platelet Volume 8.4; Monocytes # (A) 0.3 k/uL (0-1.0); Monocytes % (A) 5 %; Neutrophils % (A) 73 %; Poikilocytosis Moderate; RBC 2.82 m/uL (3.80-5.40); RDW 16.7 % (11.5-15.5); WBC 6.8 k/uL (3.8-10.6)
[2016-09-17 17:15] LABS: Calcium 8.9 mg/dL (8.4-10.2); Magnesium 2.1 mg/dL (1.6-2.3); Total Bilirubin 0.4 mg/dL (0.2-1.3); Total Protein 6.4 g/dL (6.3-8.2)
[2016-09-17 19:29] VITALS: BP 156/67; PULSE 62; RESP 18; TEMP 98.2
== END 2016-09-17 19:00 | disposition home or self-care (01) ==
LOC: EC 16:04
DX: R11.2 Nausea with vomiting, unspecified (principal); R10.9 Unspecified abdominal pain; R19.7 Diarrhea, unspecified; I13.0 Hypertensive heart and chronic kidney disease with heart failure and stage 1 through stage 4 chronic kidney disease, or unspecified chronic kidney disease; E11.22 Type 2 diabetes mellitus with diabetic chronic kidney disease; N18.9 Chronic kidney disease, unspecified; I50.9 Heart failure, unspecified; E78.5 Hyperlipidemia, unspecified; N17.9 Acute kidney failure, unspecified; Z79.82 Long term (current) use of aspirin; Z79.4 Long term (current) use of insulin; Z79.02 Long term (current) use of antithrombotics/antiplatelets; Z79.899 Other long term (current) drug therapy; Z88.8 Allergy status to other drugs, medicaments and biological substances; Z87.891 Personal history of nicotine dependence; Z87.19 Personal history of other diseases of the digestive system
CPT/HCPCS: 36415; 93005; 80053; 83690; 83735; 85025; 87502; 99284; 96374; 96361; J2405

== ENCOUNTER 2016-09-26 18:15 | Emergency (ER) | payer MEDICARE ==
[2016-09-26 18:26] VITALS: PULSE 62
[2016-09-26] MEDS ORDERED: SODIUM CHLORIDE 0.9% 500 ML IV STA (19:46)
--- NOTE | 2016-09-26 20:26 | ED ---
Female Urogenital HPI - General Chief complaint: Vaginal Bleeding Stated complaint: vaginal bleeding Time Seen by Provider: 09/26/16 19:32 Source: patient, RN notes reviewed Mode of arrival: wheelchair Limitations: no limitations - History of Present Illness Initial comments: 66-year-old female presents to the emergency department with a chief complaint of vaginal bleeding. The patient states that she recently had uterine cancer. Patient states they did radiation and the cancer has resolved. Patient states however she continues to have vaginal bleeding due to the radiation scarring of the uterus. Patient states she's had this for over a year now. Patient states that it comes and goes. Patient states that she often receives blood work and blood transfusion due to the bleeding. Patient states the treatment is a hysterectomy however due to her other health issues she is unstable for surgery today will not perform this. Patient states that she recently did receive blood from Dr. Smith. Patient states today shows some large clots shows that once while but she does get mildly lightheaded so she thought that she should be evaluated. Patient states that she called Dr. Bradshaw and was referred here for blood work. Patient states sometimes she'll have cramping before the bleeding but the pain is mild. Patient states she is not currently having any other symptoms at this time.Patient denies any recent fever, chills, shortness of breath, chest pain, back pain, nausea vomiting, numbness or tingling, dysuria or hematuria, constipation or diarrhea, headaches or visual changes, or any other current symptoms. - Related Data Home Medications Medication Instructions Recorded Confirmed Clopidogrel [Plavix] 75 mg PO HS 06/12/15 09/26/16 Insulin Glargine [Lantus] 65 unit SQ HS 01/15/16 09/26/16 Albuterol Sulfate [Proventil Hfa] 2 puff INHALATION RT-Q4H PRN 02/15/16 09/26/16 Carvedilol [Coreg] 25 mg PO BID 08/07/16 09/26/16 Insulin Aspart [NovoLOG] 20 unit SQ AC-TID 08/07/16 09/26/16 Insulin Glargine [Lantus] 10 unit SQ QAM 08/07/16 09/26/16 Nitroglycerin Sl Tabs [Nitrostat] 0.4 mg SUBLINGUAL Q5M PRN 08/07/16 09/26/16 Dicyclomine HCl 10 mg PO Q8HR PRN 08/26/16 09/26/16 Nystatin 100,000 Unit/gm Powd 1 applic TOPICAL BID PRN 08/26/16 09/26/16 [Mycostatin Powder] Furosemide [Lasix] 40 mg PO BID 09/06/16 09/26/16 Spironolactone [Aldactone] 25 mg PO MOWEFR 09/06/16 09/26/16 Previous Rx's Medication Instructions Recorded Atorvastatin [Lipitor] 80 mg PO HS #30 tab 06/16/15 Pantoprazole Sodium [Protonix] 40 mg PO DAILY #30 tablet. 06/21/15 Aspirin 81 mg PO DAILY chew 08/28/15 amLODIPine [Norvasc] 10 mg PO DAILY #30 tab 07/20/16 Meclizine [Antivert] 12.5 mg PO Q6H PRN #12 tablet 09/06/16 Allergies Allergy/AdvReac Type Severity Reaction Status Date / Time hydralazine Allergy Severe Anaphylaxis Verified 09/26/16 19:59 codeine AdvReac Hallucinati Verified 09/26/16 19:59 ons hydrocodone AdvReac Hallucinati Verified 09/26/16 19:59 ons lisinopril AdvReac Rapid Verified 09/26/16 19:59 Heart Rate Review of Systems ROS Statement: Those systems with pertinent positive or pertinent negative responses have been documented in the HPI. ROS Other: All systems not noted in ROS Statement are negative. Past Medical History Past Medical History: Asthma, Cancer, Heart Failure, COPD, CVA/TIA, Diabetes Mellitus, Eye Disorder, Fibromyalgia, GI Bleed, Hyperlipidemia, Hypertension, Myocardial Infarction (HI), Osteoarthritis (OA), Pneumonia Additional Past Medical History / Comment(s): Pt recently admitted on 07/08/15 with acute blood loss anemia, possible uterine lesion/cancer (pt has hx of uterine cancer tx with radiation), cystitis and vaginal bleeding. 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 Last Myocardial Infarction Date:: 06/12/15 History of Any Multi-Drug Resistant Organisms: None Reported Past Surgical History: Cholecystectomy, Heart Catheterization, Heart Catheterization With Stent Additional Past Surgical History / Comment(s): 06/12/15 Cardiac cath, 06/15/15 PTCA with stent mid L main, D&C X2, YRS AGO HAD A DEVICE IN FOR RADIATION TX FOR UTERINE CA THAT WAS SINCE REMOVED.EGD/COLONOSCOPY.02/18/16 heart cath 3 stents to rca Past Anesthesia/Blood Transfusion Reactions: Motion Sickness Additional Past Anesthesia/Blood Transfusion Reaction / Comment(s): CLAUSTROPHOBIA. Pt has had blood transfusion in past-no reaction to blood Date of Last Stent Placement:: 02/18/16 Past Psychological History: Anxiety, Depression Additional Psychological History / Comment(s): Pt resides with her spouse. She is basically wheel chair bound most of the time for the past several yrs. She at times ambulates with assistance or pushes her wheelchair. She feeds herself. She has a supportive family. She has a sister that helps with her bathing and her олег and spouse will help with her medication. 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 Mother Family Medical History: CVA/TIA Additional Family Medical History / Comment(s): HEART PROBLEMS, STARTED DRINKING AFTER OF HER , she of a ruptured liver at age 58 yrs. General Exam - General Exam Comments Initial Comments: General: The patient is awake and alert, in no distress, and does not appear acutely ill. Eye: Pupils are equal, round and reactive to light, extra-ocular movements are intact; there is normal conjunctiva bilaterally. No signs of icterus. Ears, nose, mouth and throat: There are moist mucous membranes. Neck: The neck is supple, there is no tenderness. Cardiovascular: There is a regular rate and rhythm. No murmur, rub or gallop is appreciated. Respiratory: Lungs are clear to auscultation, respirations are non-labored, breath sounds are equal. No wheezes, stridor, rales, or rhonchi. Gastrointestinal: Soft, non-distended, non-tender abdomen without masses or organomegaly noted. There is no rebound or guarding present. No CVA tenderness. Bowel sounds are unremarkable. Back: There is no tenderness to palpation in the midline. There is no obvious deformity. No rashes noted. Musculoskeletal: Normal ROM, no tenderness, There is no pedal edema. There is no calf tenderness or swelling. Sensation intact. Pulses equal bilaterally 2+. Neurological: CN II-XII intact, There are no obvious motor or sensory deficits. Coordination appears grossly intact. Speech is normal. Skin: Skin is warm and dry and no rashes or lesions are noted. Psychiatric: Cooperative, appropriate mood & affect, normal judgment. Limitations: no limitations Course Vital Signs 09/26/16 18:25 Temperature 98.2 F Pulse Rate 62 Respiratory 20 Rate Blood Pressure 145/94 O2 Sat by Pulse 95 Oximetry Medical Decision Making - Medical Decision Making 66-year-old female presents to the emergency department with a chief complaint of vaginal bleeding. This time patient's hemoglobin is stable. This time we discussed follow-up with her doctor in the morning. We discussed return parameters. We discussed all the patient's questions. She states that she understood and she has a plan. This time she'll be discharged home. - Lab Data Result diagrams: 09/26/16 20:15 09/26/16 20:15 Lab Results 09/26/16 09/26/16 09/26/16 Range/Units 20:15 20:15 20:15 WBC 8.1 (3.8-10.6) k/uL RBC 3.47 L (3.80-5.40) m/uL Hgb 9.3 L D (11.4-16.0) gm/dL Hct 29.2 L (34.0-46.0) % MCV 84.2 (80.0-100.0) fL MCH 26.9 (25.0-35.0) pg MCHC 31.9 (31.0-37.0) g/dL RDW 15.0 (11.5-15.5) % Plt Count 173 (150-450) k/uL Neutrophils % 74 % Lymphocytes % 14 % Monocytes % 4 % Eosinophils % 6 % Basophils % 1 % Neutrophils # 6.0 (1.3-7.7) k/uL Lymphocytes # 1.1 (1.0-4.8) k/uL Monocytes # 0.3 (0-1.0) k/uL Eosinophils # 0.5 (0-0.7) k/uL Basophils # 0.0 (0-0.2) k/uL Hypochromasia Marked Poikilocytosis Moderate PT 10.9 (9.0-12.0) sec INR 1.1 (<1.1) APTT 24.6 (22.0-30.0) sec Sodium 139 (137-145) mmol/L Potassium 4.6 (3.5-5.1) mmol/L Chloride 102 (98-107) mmol/L Carbon Dioxide 23 (22-30) mmol/L Anion Gap 14 mmol/L BUN 54 H (7-17) mg/dL Creatinine 1.51 H (0.52-1.04) mg/dL Est GFR (MDRD) Af Amer 42 (>60 ml/min/1.73 sqM) Est GFR (MDRD) Non-Af 35 (>60 ml/min/1.73 sqM) Glucose 288 H (74-99) mg/dL Calcium 9.2 (8.4-10.2) mg/dL Total Bilirubin 0.6 (0.2-1.3) mg/dL AST 20 (14-36) U/L ALT 23 (9-52) U/L Alkaline Phosphatase 120 (38-126) U/L Total Protein 6.7 (6.3-8.2) g/dL Albumin 3.7 (3.5-5.0) g/dL Disposition Clinical Impression: Vaginal bleeding, Chronic anemia Disposition: HOME SELF-CARE Condition: Stable Instructions: Anemia (ED) Additional Instructions: Please use medication as discussed. Please follow up with family doctor if symptoms have not improved over the next two days. Please return to the emergency room if your symptoms increase or worsen or for any other concerns. Referrals: Tyler Hermosillo DO [Primary Care Provider] - 1-2 days Time of Disposition: 20:57
[2016-09-26 20:40] LABS: Calcium 9.2 mg/dL (8.4-10.2); Potassium 4.6 mmol/L (3.5-5.1); Total Bilirubin 0.6 mg/dL (0.2-1.3); Total Protein 6.7 g/dL (6.3-8.2)
[2016-09-26 20:42] LABS: INR 1.1 (<1.1); Partial Thromboplastin Time 24.6 sec (22.0-30.0); Prothrombin Time 10.9 sec (9.0-12.0)
[2016-09-26 20:47] LABS: Basophils % (A) 1 %; CHCM 32.1; Eosinophils # (A) 0.5 k/uL (0-0.7); Eosinophils % (A) 6 %; HCT 29.2 % (34.0-46.0); HDW 4.45; Hypochromasia Marked; Luc # (Auto) 0.15; Luc % (Auto) 2; Lymphocytes # (A) 1.1 k/uL (1.0-4.8); Lymphocytes % (A) 14 %; MCH 26.9 pg (25.0-35.0); MCHC 31.9 g/dL (31.0-37.0); MCV 84.2 fL (80.0-100.0); Monocytes # (A) 0.3 k/uL (0-1.0); Monocytes % (A) 4 %; Neutrophils % (A) 74 %; Poikilocytosis Moderate; RBC 3.47 m/uL (3.80-5.40); WBC 8.1 k/uL (3.8-10.6); WBC (Perox) 8.23
[2016-09-26 20:48] LABS: HGB 9.3 gm/dL (11.4-16.0)
[2016-09-26 21:21] VITALS: BP 172/72; RESP 18; TEMP 98.1
== END 2016-09-26 21:21 | disposition home or self-care (01) ==
LOC: EC 18:15
DX: N93.9 Abnormal uterine and vaginal bleeding, unspecified (principal); D64.9 Anemia, unspecified; I11.0 Hypertensive heart disease with heart failure; I50.9 Heart failure, unspecified; E11.9 Type 2 diabetes mellitus without complications; E78.5 Hyperlipidemia, unspecified; M79.7 Fibromyalgia; I25.2 Old myocardial infarction; M19.90 Unspecified osteoarthritis, unspecified site; Z85.42 Personal history of malignant neoplasm of other parts of uterus; Z87.891 Personal history of nicotine dependence; Z79.01 Long term (current) use of anticoagulants; Z79.4 Long term (current) use of insulin; Z79.899 Other long term (current) drug therapy; Z88.5 Allergy status to narcotic agent; Z88.8 Allergy status to other drugs, medicaments and biological substances
CPT/HCPCS: 36415; 80053; 85025; 85610; 85730; 86850; 86870; 86880; 86900; 86901; 96360; 99284

== ENCOUNTER 2016-10-05 15:53 | Inpatient (IN) | payer MEDICARE ==
[2016-10-05] MEDS ORDERED: IPRATROPIUM 0.5 MG/2.5 ML NEBU INHALATION STA (16:38)
[2016-10-05] MEDS ORDERED: ALBUTEROL NEBULIZED 2.5 MG/3 ML INHALATION STA (16:38)
--- NOTE | 2016-10-05 16:45 | ED ---
General Adult HPI - General Chief complaint: Shortness of Breath Stated complaint: SOB Time Seen by Provider: 10/05/16 16:23 Source: patient, RN notes reviewed, old records reviewed Mode of arrival: wheelchair Limitations: no limitations - History of Present Illness Initial comments: This is a 66-year-old female ER for evaluation shortness of breath. Patient has Plon history of breathing issues and palpitations increasing sleep apnea COPD and heart failure. Patient has been inability within the last year for evaluation and lung failure regarding CHF. Patient does suffer from chronic anemia and is receiving iron injections, patient states she's never had up shortness of breath issue with iron injections although patient's spouse states the shortness of breath or last night. Patient denies chest pain recent fevers , cough no congestion - Related Data Home Medications Medication Instructions Recorded Confirmed Clopidogrel [Plavix] 75 mg PO HS 06/12/15 10/05/16 Insulin Glargine [Lantus] 65 unit SQ HS 01/15/16 10/05/16 Albuterol Sulfate [Proventil Hfa] 2 puff INHALATION RT-Q4H PRN 02/15/16 10/05/16 Carvedilol [Coreg] 25 mg PO BID 08/07/16 10/05/16 Insulin Aspart [NovoLOG] 20 unit SQ AC-TID 08/07/16 10/05/16 Insulin Glargine [Lantus] 10 unit SQ QAM 08/07/16 10/05/16 Nitroglycerin Sl Tabs [Nitrostat] 0.4 mg SUBLINGUAL Q5M PRN 08/07/16 10/05/16 Dicyclomine HCl 10 mg PO Q8HR PRN 08/26/16 10/05/16 Nystatin 100,000 Unit/gm Powd 1 applic TOPICAL BID PRN 08/26/16 10/05/16 [Mycostatin Powder] Furosemide [Lasix] 40 mg PO BID 09/06/16 10/05/16 Spironolactone [Aldactone] 25 mg PO MOWEFR 09/06/16 10/05/16 Previous Rx's Medication Instructions Recorded Atorvastatin [Lipitor] 80 mg PO HS #30 tab 06/16/15 Pantoprazole Sodium [Protonix] 40 mg PO DAILY #30 tablet. 06/21/15 Aspirin 81 mg PO DAILY chew 08/28/15 amLODIPine [Norvasc] 10 mg PO DAILY #30 tab 07/20/16 Meclizine [Antivert] 12.5 mg PO Q6H PRN #12 tablet 09/06/16 Allergies Allergy/AdvReac Type Severity Reaction Status Date / Time hydralazine Allergy Severe Anaphylaxis Verified 10/05/16 16:29 codeine AdvReac Hallucinati Verified 10/05/16 16:29 ons hydrocodone AdvReac Hallucinati Verified 10/05/16 16:29 ons lisinopril AdvReac Rapid Verified 10/05/16 16:29 Heart Rate Review of Systems ROS Statement: Those systems with pertinent positive or pertinent negative responses have been documented in the HPI. ROS Other: All systems not noted in ROS Statement are negative. Past Medical History Past Medical History: Asthma, Cancer, Heart Failure, COPD, CVA/TIA, Diabetes Mellitus, Eye Disorder, Fibromyalgia, GI Bleed, Hyperlipidemia, Hypertension, Myocardial Infarction ([place]), Osteoarthritis ([place]), Pneumonia Additional Past Medical History / Comment(s): Pt recently admitted on 07/08/15 with acute blood loss anemia, possible uterine lesion/cancer (pt has hx of uterine cancer tx with radiation), cystitis and vaginal bleeding. 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 Last Myocardial Infarction Date:: 06/12/15 History of Any Multi-Drug Resistant Organisms: None Reported Past Surgical History: Cholecystectomy, Heart Catheterization, Heart Catheterization With Stent Additional Past Surgical History / Comment(s): 06/12/15 Cardiac cath, 06/15/15 PTCA with stent mid L main, D&C X2, YRS AGO HAD A DEVICE IN FOR RADIATION TX FOR UTERINE CA THAT WAS SINCE REMOVED.EGD/COLONOSCOPY.02/18/16 heart cath 3 stents to rca Past Anesthesia/Blood Transfusion Reactions: Motion Sickness Additional Past Anesthesia/Blood Transfusion Reaction / Comment(s): CLAUSTROPHOBIA. Pt has had blood transfusion in past-no reaction to blood Date of Last Stent Placement:: 02/18/16 Past Psychological History: Anxiety, Depression Additional Psychological History / Comment(s): Pt resides with her spouse. She is basically wheel chair bound most of the time for the past several yrs. She at times ambulates with assistance or pushes her wheelchair. She feeds herself. She has a supportive family. She has a sister that helps with her bathing and her олег and spouse will help with her medication. 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 Mother Family Medical History: CVA/TIA Additional Family Medical History / Comment(s): HEART PROBLEMS, STARTED DRINKING AFTER OF HER , she of a ruptured liver at age 59 yrs. General Exam Limitations: no limitations General appearance: alert, in no apparent distress, obese Head exam: Present: atraumatic, normocephalic, normal inspection Eye exam: Present: normal appearance, PERRL, EOMI. Absent: scleral icterus, conjunctival injection, periorbital swelling ENT exam: Present: normal exam, mucous membranes moist Neck exam: Present: normal inspection. Absent: tenderness, meningismus, lymphadenopathy Respiratory exam: Present: normal lung sounds bilaterally. Absent: respiratory distress, wheezes, rales, rhonchi, stridor Cardiovascular Exam: Present: regular rate, normal rhythm, normal heart sounds. Absent: systolic murmur, diastolic murmur, rubs, gallop, clicks GI/Abdominal exam: Present: soft, normal bowel sounds. Absent: distended, tenderness, guarding, rebound, rigid Extremities exam: Present: normal inspection, full ROM, normal capillary refill. Absent: tenderness, pedal edema, joint swelling, calf tenderness Back exam: Present: normal inspection Neurological exam: Present: alert, oriented X3, CN II-XII intact Psychiatric exam: Present: normal affect, normal mood Skin exam: Present: warm, dry, intact, normal color. Absent: rash Course Vital Signs 10/05/16 10/05/16 10/05/16 16:05 16:26 16:51 Temperature 97.4 F L Pulse Rate 67 65 60 Respiratory 20 18 Rate Blood Pressure 164/69 O2 Sat by Pulse 98 95 Oximetry 10/05/16 10/05/16 17:03 18:07 Temperature 98.6 F Pulse Rate 66 64 Respiratory 18 Rate Blood Pressure 150/62 O2 Sat by Pulse 95 Oximetry - Reevaluation(s) Reevaluation #1: 10/05/16 18:18 Patient admits to continued shortness of breath EKG Findings - EKG Comments: EKG Findings:: EKG shows sinus rhythm rate of 70, MT 236, QRS 90, QTc 470 Medical Decision Making - Medical Decision Making 66 female ear fever or shortness with congestion, patient having shortness of breath after getting an injection tonight. Patient seemed Dominick continues to drop, anemia continues, no CHF at this time. Patient does have positive x-ray for pneumonia. Patient will be admitted for IV antibiotics and breathing treatments, and cardiopulmonary status - Lab Data Result diagrams: 10/05/16 16:20 10/05/16 16:20 Lab Results 10/05/16 10/05/16 10/05/16 Range/Units 16:20 16:20 16:20 WBC 7.9 (3.8-10.6) k/uL RBC 2.74 L (3.80-5.40) m/uL Hgb 7.5 L D (11.4-16.0) gm/dL Hct 23.6 L (34.0-46.0) % MCV 86.2 (80.0-100.0) fL MCH 27.2 (25.0-35.0) pg MCHC 31.6 (31.0-37.0) g/dL RDW 18.7 H (11.5-15.5) % Plt Count 179 (150-450) k/uL Neutrophils % 73 % Lymphocytes % 14 % Monocytes % 5 % Eosinophils % 6 % Basophils % 0 % Neutrophils # 5.8 (1.3-7.7) k/uL Lymphocytes # 1.1 (1.0-4.8) k/uL Monocytes # 0.4 (0-1.0) k/uL Eosinophils # 0.5 (0-0.7) k/uL Basophils # 0.0 (0-0.2) k/uL Hypochromasia Marked Poikilocytosis Moderate Anisocytosis Slight PT (9.0-12.0) sec INR (<1.1) APTT (22.0-30.0) sec Sodium 140 (137-145) mmol/L Potassium 4.3 (3.5-5.1) mmol/L Chloride 104 (98-107) mmol/L Carbon Dioxide 24 (22-30) mmol/L Anion Gap 12 mmol/L BUN 55 H (7-17) mg/dL Creatinine 1.59 H (0.52-1.04) mg/dL Est GFR (MDRD) Af Amer 39 (>60 ml/min/1.73 sqM) Est GFR (MDRD) Non-Af 33 (>60 ml/min/1.73 sqM) Glucose 282 H (74-99) mg/dL Calcium 9.2 (8.4-10.2) mg/dL Total Bilirubin 0.7 (0.2-1.3) mg/dL AST 19 (14-36) U/L ALT 23 (9-52) U/L Alkaline Phosphatase 121 (38-126) U/L Total Creatine Kinase 91 (30-135) U/L CK-MB (CK-2) 1.0 (0.0-2.4) ng/mL CK-MB (CK-2) Rel Index 1.1 Troponin I <0.012 (0.000-0.034) ng/mL NT-Pro-B Natriuret Pep pg/mL Total Protein 6.6 (6.3-8.2) g/dL Albumin 3.6 (3.5-5.0) g/dL 10/05/16 10/05/16 Range/Units 16:20 16:20 WBC (3.8-10.6) k/uL RBC (3.80-5.40) m/uL Hgb (11.4-16.0) gm/dL Hct (34.0-46.0) % MCV (80.0-100.0) fL MCH (25.0-35.0) pg MCHC (31.0-37.0) g/dL RDW (11.5-15.5) % Plt Count (150-450) k/uL Neutrophils % % Lymphocytes % % Monocytes % % Eosinophils % % Basophils % % Neutrophils # (1.3-7.7) k/uL Lymphocytes # (1.0-4.8) k/uL Monocytes # (0-1.0) k/uL Eosinophils # (0-0.7) k/uL Basophils # (0-0.2) k/uL Hypochromasia Poikilocytosis Anisocytosis PT 10.9 (9.0-12.0) sec INR 1.1 (<1.1) APTT 24.9 (22.0-30.0) sec Sodium (137-145) mmol/L Potassium (3.5-5.1) mmol/L Chloride (98-107) mmol/L Carbon Dioxide (22-30) mmol/L Anion Gap mmol/L BUN (7-17) mg/dL Creatinine (0.52-1.04) mg/dL Est GFR (MDRD) Af Amer (>60 ml/min/1.73 sqM) Est GFR (MDRD) Non-Af (>60 ml/min/1.73 sqM) Glucose (74-99) mg/dL Calcium (8.4-10.2) mg/dL Total Bilirubin (0.2-1.3) mg/dL AST (14-36) U/L ALT (9-52) U/L Alkaline Phosphatase (38-126) U/L Total Creatine Kinase (30-135) U/L CK-MB (CK-2) (0.0-2.4) ng/mL CK-MB (CK-2) Rel Index Troponin I (0.000-0.034) ng/mL NT-Pro-B Natriuret Pep 805 pg/mL Total Protein (6.3-8.2) g/dL Albumin (3.5-5.0) g/dL - Radiology Data Radiology results: report reviewed (Chest x-ray positive for pneumonia), image reviewed Disposition Clinical Impression: Acute exacerbation of chronic obstructive airways disease, Nosocomial pneumonia , Anemia Disposition: ADMITTED IP TO THIS [facility] Condition: Fair Referrals: Tyler Hermosillo DO [Primary Care Provider] - 1-2 days
[2016-10-05 16:56] LABS: Anisocytosis Slight; Basophils % (A) 0 %; CH 27.1; CHCM 31.6; Eosinophils # (A) 0.5 k/uL (0-0.7); Eosinophils % (A) 6 %; HCT 23.6 % (34.0-46.0); HDW 4.16; Hypochromasia Marked; Luc # (Auto) 0.13; Luc % (Auto) 2; Lymphocytes # (A) 1.1 k/uL (1.0-4.8); Lymphocytes % (A) 14 %; MCH 27.2 pg (25.0-35.0); MCHC 31.6 g/dL (31.0-37.0); MCV 86.2 fL (80.0-100.0); Mean Platelet Volume 7.4; Monocytes # (A) 0.4 k/uL (0-1.0); Monocytes % (A) 5 %; Neutrophils # (A) 5.8 k/uL (1.3-7.7); Neutrophils % (A) 73 %; Poikilocytosis Moderate; RBC 2.74 m/uL (3.80-5.40); RDW 18.7 % (11.5-15.5); WBC 7.9 k/uL (3.8-10.6); WBC (Perox) 8.19
[2016-10-05 16:58] LABS: Calcium 9.2 mg/dL (8.4-10.2); Potassium 4.3 mmol/L (3.5-5.1); Total Bilirubin 0.7 mg/dL (0.2-1.3); Total Protein 6.6 g/dL (6.3-8.2)
[2016-10-05 17:00] LABS: INR 1.1 (<1.1); Partial Thromboplastin Time 24.9 sec (22.0-30.0); Prothrombin Time 10.9 sec (9.0-12.0)
[2016-10-05 17:05] LABS: HGB 7.5 gm/dL (11.4-16.0)
--- NOTE | 2016-10-05 17:17 | XR ---
EXAMINATION TYPE: XR chest 2V DATE OF EXAM: 10/05/2016 5:07 PM HISTORY: Shortness of breath. COMPARISON: 09/06/2016 TECHNIQUE: Single view of the chest is submitted. FINDINGS: Demonstrated are scattered senescent parenchymal change. There is increased density right medial lung base may reflect atelectasis or infiltrate. Correlate cl inically. The heart is stable. Hilar and mediastinal structures are within normal limits. Degenerative changes are seen of the dorsal spine. IMPRESSION: 1. There is increased density right medial lung base may reflect atelectasis or infiltrate. Correlat e clinically.
[2016-10-05 17:29] LABS: Creatine Kinase 91 U/L (30-135)
[2016-10-05 17:42] LABS: Troponin I <0.012 ng/mL (0.000-0.034)
[2016-10-05] MEDS ORDERED: LEVOFLOXACIN 750MG-D5W PMX 750 MG in DEXTROSE/WATER 1 150ML.BAG IVPB STA (18:16)
[2016-10-05] MEDS ORDERED: PIPERACILLIN-TAZOBACTAM 3.375 GM in DEXTROSE/WATER 1 50ML.BAG IVPB STA (18:16)
[2016-10-05] MEDS ORDERED: PNEUMONIA PROTOCOL UTILIZED 1 EACH MISC PO PRN (18:16)
[2016-10-05 18:23] LABS: Glucose,Whole Blood 336 mg/dL (75-99)
[2016-10-05] MEDS ORDERED: SODIUM CHLORIDE 0.9% 1,000 ML IV SCH (18:30)
[2016-10-05] MEDS: INSULIN LISPRO (humaLOG) 300 UNIT/3 ML VIAL SQ SCH (19:08)
[2016-10-05 20:49] LABS: Glucose,Whole Blood 324 mg/dL (75-99)
[2016-10-05] MEDS ORDERED: NITROGLYCERIN SL TABS 0.4 MG TAB SUBLINGUAL PRN (21:34)
[2016-10-05] MEDS ORDERED: ALBUTEROL NEBULIZED 2.5 MG/3 ML INHALATION PRN (21:34)
[2016-10-05] MEDS ORDERED: NYSTATIN 100,000 UNIT/GM POWD 15 GM TOPICAL PRN (21:34)
[2016-10-05] MEDS ORDERED: MECLIZINE 12.5 MG TAB PO PRN (21:34)
[2016-10-05] MEDS ORDERED: DICYCLOMINE 10 MG CAP PO PRN (21:34)
[2016-10-05] MEDS ORDERED: CLOPIDOGREL 75 MG TAB PO SCH (21:45)
[2016-10-05] MEDS ORDERED: INSULIN LISPRO (humaLOG) 300 UNIT/3 ML VIAL SQ ONE (21:51)
[2016-10-05] MEDS: SPIRONOLACTONE 25 MG TAB PO SCH (22:23)
[2016-10-05] MEDS: ATORVASTATIN 80 MG TAB PO SCH (22:25)
[2016-10-05] MEDS: CARVEDILOL 12.5 MG TAB PO SCH (22:25)
[2016-10-05] MEDS: ACETAMINOPHEN TAB 500 MG TAB PO PRN (22:40)
[2016-10-06] MEDS: IPRATROPIUM-ALBUTEROL 3 ML NEB INHALATION SCH ×5 (00:20→19:29)
[2016-10-06 00:31] LABS: Glucose,Whole Blood 243 mg/dL (75-99)
[2016-10-06] MEDS: INSULIN GLARGINE 100 UNIT/ML 10 ML VIAL SQ SCH ×3 (00:33→22:29)
[2016-10-06] MEDS: SODIUM CHLORIDE 0.9% 1,000 ML IV SCH (03:44)
[2016-10-06 03:55] LABS: Glucose,Whole Blood 180 mg/dL (75-99)
[2016-10-06] MEDS: PIPERACILLIN-TAZOBACTAM 3.375 GM in DEXTROSE/WATER 1 50ML.BAG IVPB SCH ×2 (04:13→12:25)
--- NOTE | 2016-10-06 07:14 | XR ---
EXAMINATION TYPE: XR chest 2V DATE OF EXAM: 10/06/2016 7:09 AM COMPARISON: 10/05/2016 HISTORY: Shortness of breath TECHNIQUE: Frontal and lateral views of the chest are obtained. FINDINGS: Scattered senescent parenchymal changes noted. Hyperinflation compatible with COPD. Mild persistent increased density right medial lung base. Heart size is stable. Mediastinal structures are stable and grossly unremarkable. No evidence for hilar prominence. Degenerative changes dorsal spine. IMPRESSION: 1. Essentially stable chest.
[2016-10-06 07:34] LABS: Anisocytosis Slight; Basophils % (A) 0 %; CH 27.1; CHCM 30.7; Eosinophils # (A) 0.5 k/uL (0-0.7); Eosinophils % (A) 7 %; HCT 22.7 % (34.0-46.0); HDW 4.13; HGB 7.1 gm/dL (11.4-16.0); Hypochromasia Marked; Luc # (Auto) 0.09; Luc % (Auto) 1; Lymphocytes # (A) 0.8 k/uL (1.0-4.8); Lymphocytes % (A) 13 %; MCH 27.6 pg (25.0-35.0); MCHC 31.1 g/dL (31.0-37.0); MCV 88.7 fL (80.0-100.0); Mean Platelet Volume 8.7; Monocytes # (A) 0.3 k/uL (0-1.0); Monocytes % (A) 5 %; Neutrophils # (A) 4.7 k/uL (1.3-7.7); Neutrophils % (A) 73 %; Poikilocytosis Moderate; RBC 2.56 m/uL (3.80-5.40); RDW 18.8 % (11.5-15.5); WBC 6.4 k/uL (3.8-10.6); WBC (Perox) 6.73
[2016-10-06 07:38] LABS: Glucose,Whole Blood 198 mg/dL (75-99)
[2016-10-06 07:49] LABS: Creatine Kinase 80 U/L (30-135)
[2016-10-06 08:03] LABS: Creatine Kinase MB 1.1 ng/mL (0.0-2.4); Troponin I <0.012 ng/mL (0.000-0.034)
[2016-10-06] MEDS: PANTOPRAZOLE 40 MG TABLET PO SCH (08:10)
[2016-10-06] MEDS: CARVEDILOL 12.5 MG TAB PO SCH ×2 (08:10→18:23)
[2016-10-06] MEDS: FUROSEMIDE 40 MG TAB PO SCH ×2 (08:10→16:33)
[2016-10-06] MEDS: amLODIPine 10 MG TAB PO SCH (08:10)
[2016-10-06] MEDS: ASPIRIN 81 MG CHEW PO SCH (08:10)
[2016-10-06] MEDS ORDERED: ENOXAPARIN 40 MG/0.4 ML SYRINGE SQ SCH (09:00)
[2016-10-06 11:55] LABS: Glucose,Whole Blood 304 mg/dL (75-99)
[2016-10-06] MEDS: INSULIN LISPRO (humaLOG) 300 UNIT/3 ML VIAL SQ SCH ×2 (12:25→18:23)
--- NOTE | 2016-10-06 13:06 | P.CNPUL ---
History of Present Illness Consult date: 10/06/16 Requesting physician: Amadeo Aguila Reason for consult: dyspnea Chief complaint: Shortness of breath History of present illness: This is a very pleasant 66-year-old female patient who follows with Dr. Maddison Hermosillo as her primary care physician. She has a history of diabetes mellitus, hypertension, hyperlipidemia, coronary artery disease, fibromyalgia, CVA/TIA, anemia, uterine cancer status post radiation, femoral pseudoaneurysm. She also has a history of chronic obstructive pulmonary disease and severe pulmonary hypertension and follows with Dr. Caceres in our office. She did have an episode of ventilatory dependent respiratory failure in the past as well. She presented here to the emergency room yesterday with complaints of increasing shortness of breath, cough and congestion. Her chest x-ray does not reveal any evidence of acute cardiopulmonary process. There is evidence of hyperinflation compatible with COPD. Density in the right medial lung base. No changes compared to previous. She is anemic with a hemoglobin of 7.1 which may also be contributing to her shortness of breath. During her last admission approximately one month ago she did have ongoing vaginal bleeding and had a hemoglobin as low as 6.5. She was transfused at that time. She is seen today in consultation on the regular medical floor. She is awake and alert in no acute distress. She states she is breathing easier today as compared to yesterday. She is maintaining O2 saturations in the 90s on room air. Nonproductive cough. No chills or night sweats. She has been afebrile. No leukocytosis. Review of Systems 14 point review of system was conducted. All negative other than as mentioned in HPI. Past Medical History Past Medical History: Asthma, Cancer, Heart Failure, COPD, CVA/TIA, Diabetes Mellitus, Eye Disorder, Fibromyalgia, GI Bleed, Hyperlipidemia, Hypertension, Myocardial Infarction ([place]), Osteoarthritis (OA), Pneumonia Additional Past Medical History / Comment(s): anemia, possible uterine lesion/ cancer (pt has hx of uterine cancer tx with radiation), cystitis and vaginal bleeding. 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 Last Myocardial Infarction Date:: 06/12/15 History of Any Multi-Drug Resistant Organisms: None Reported Past Surgical History: Cholecystectomy, Heart Catheterization, Heart Catheterization With Stent Additional Past Surgical History / Comment(s): 06/12/15 Cardiac cath, 06/15/15 PTCA with stent mid L main, D&C X2, YRS AGO HAD A DEVICE IN FOR RADIATION TX FOR UTERINE CA THAT WAS SINCE REMOVED.EGD/COLONOSCOPY.02/18/16 heart cath 3 stents to rca Past Anesthesia/Blood Transfusion Reactions: Motion Sickness Additional Past Anesthesia/Blood Transfusion Reaction / Comment(s): CLAUSTROPHOBIA. Pt has had blood transfusion in past-no reaction to blood Date of Last Stent Placement:: 02/18/16 Past Psychological History: Anxiety, Depression Additional Psychological History / Comment(s): Pt resides with her spouse. She is basically wheel chair bound most of the time for the past several yrs. She at times ambulates with assistance or pushes her wheelchair. She feeds herself. She has a supportive family. She has a sister that helps with her bathing and her олег and spouse will help with her medication. Smoking Status: Former smoker Past Alcohol Use History: None Reported Additional Past Alcohol Use History / Comment(s): STARTED SMOKING AGE 20, STOPPED SMOKING - PPD BUT WOULD BURN HALF OUT IN TIEN TRAY Past Drug Use History: None Reported - Past Family History Father Additional Family Medical History / Comment(s): WAS A DRINKER WHEN YOUNGER , LOST AN ARM IN THE SERVICE, PANCREATITIS, LIVER CANCER- from at age 57yrs. Mother Family Medical History: CVA/TIA Additional Family Medical History / Comment(s): HEART PROBLEMS, STARTED DRINKING AFTER OF HER , she of a ruptured liver at age 58 yrs. Medications and Allergies Home Medications Medication Instructions Recorded Confirmed Type Clopidogrel [Plavix] 75 mg PO HS 06/12/15 10/05/16 History Insulin Glargine [Lantus] 65 unit SQ HS 01/15/16 10/05/16 History Albuterol Sulfate [Proventil Hfa] 2 puff INHALATION RT-Q4H PRN 02/15/16 History Carvedilol [Coreg] 25 mg PO BID 08/07/16 10/05/16 History Insulin Aspart [NovoLOG] 15 unit SQ AC-TID 08/07/16 10/05/16 History Insulin Glargine [Lantus] 10 unit SQ QAM 08/07/16 10/05/16 History Nitroglycerin Sl Tabs [Nitrostat] 0.4 mg SUBLINGUAL Q5M PRN 08/07/16 10/05/16 History Dicyclomine HCl 10 mg PO Q8HR PRN 08/26/16 10/05/16 History Nystatin 100,000 Unit/gm Powd 1 applic TOPICAL BID PRN 08/26/16 10/05/16 History [Mycostatin Powder] Furosemide [Lasix] 40 mg PO BID 09/06/16 10/05/16 History Spironolactone [Aldactone] 25 mg PO MOWEFR 09/06/16 10/05/16 History Allergies Allergy/AdvReac Type Severity Reaction Status Date / Time hydralazine Allergy Severe Anaphylaxis Verified 10/05/16 16:29 codeine AdvReac Hallucinati Verified 10/05/16 16:29 ons hydrocodone AdvReac Hallucinati Verified 10/05/16 16:29 ons lisinopril AdvReac Rapid Verified 10/05/16 16:29 Heart Rate Physical Exam Vitals: Vital Signs Temp Pulse Pulse Resp BP BP Pulse Ox 10/06/16 09:47 64 10/06/16 09:37 64 10/06/16 08:00 18 10/06/16 07:00 98.1 F 63 20 128/73 96 10/06/16 04:02 65 18 130/59 96 10/06/16 03:49 63 18 132/62 94 L 10/06/16 03:35 141/65 10/06/16 00:33 64 10/06/16 00:21 60 10/05/16 21:02 98.3 F 65 16 132/63 95 10/05/16 19:28 97.6 F 69 18 184/73 99 10/05/16 18:44 64 16 100 Intake and Output 10/05/16 10/06/16 10/06/16 22:59 06:59 14:59 Intake Total 350 250 Balance 350 250 Intake: IV 150 50 Levofloxacin 750Mg-D5w 150 Pmx 750 mg In Dextrose/ Water 1 150ml.bag @ 100 mls/hr IVPB ONCE STA Rx#: [id number] Piperacillin-Tazobactam 3 50 .375 gm In Dextrose/Water 1 50ml.bag @ 12.5 mls/hr IVPB ONCE STA Rx#: [id number] Oral 200 200 Other: Voiding Method Bedside Commode Bedside Commode # Voids 1 Weight 102 kg GENERAL EXAM: Morbidly obese. Alert, comfortable in no apparent distress. HEAD: Normocephalic. EYES: Normal reaction of pupils, equal size. NOSE: Clear with pink turbinates. THROAT: No erythema or exudates. NECK: No masses, no JVD. CHEST: No chest wall deformity. LUNGS: Equal air entry with no crackles, wheeze, rhonchi or dullness. CVS: S1 and S2 normal with no audible murmurs, regular rhythm. ABDOMEN: No hepatosplenomegaly, normal bowel sounds, no guarding or rigidity. SPINE: No scoliosis or deformity SKIN: No rashes CENTRAL NERVOUS SYSTEM: No focal deficits, tone is normal in all 4 extremities. Extremities: There is trace peripheral edema. No clubbing, no cyanosis. Peripheral pulses are intact. Results - Laboratory Findings CBC and BMP: 10/06/16 07:15 10/05/16 16:20 PT/INR, D-dimer PT 10.9 sec (9.0-12.0) 10/05/16 16:20 INR 1.1 (<1.1) 10/05/16 16:20 Abnormal lab findings: Abnormal Labs 10/05/16 10/05/16 10/06/16 18:22 20:46 00:20 RBC Hgb Hct RDW Lymphocytes # POC Glucose (mg/dL) 336 H 324 H 243 H 10/06/16 10/06/16 10/06/16 03:53 07:15 07:23 RBC 2.56 L Hgb 7.1 L Hct 22.7 L RDW 18.8 H Lymphocytes # 0.8 L POC Glucose (mg/dL) 180 H 198 H 10/06/16 11:22 RBC Hgb Hct RDW Lymphocytes # POC Glucose (mg/dL) 304 H - Diagnostic Findings Chest x-ray: image reviewed Assessment and Plan Plan: Impression: #1 Dyspnea, multifactorial in a patient with anemia, obesity/hypoventilation syndrome, COPD, pulmonary hypertension. #2 Recent admission for anemia secondary to ongoing vaginal bleeding. #3 Coronary artery disease with previous stent placements 5. currently on Plavix and aspirin. #4 Diabetes mellitus, type II. #5 Hypertension. #6 Hyperlipidemia. #7 History of femoral pseudoaneurysm. #8 CVA, history of. #9 History of acute respiratory failure requiring mechanical ventilatory support in June 2016. Plan: The patient was seen and evaluated by Dr. Caceres. Her chest x-ray and labs were reviewed. She may have some component of COPD exacerbation but no acute cardiopulmonary process noted. we will continue her bronchodilators, diuretics, antibiotics. Anemia may be the contributing factor to her shortness of breath. We'll continue to monitor her hemoglobin. She is currently on Lovenox for DVT prophylaxis. We will increase her activity as tolerated. We'll continue to follow. Time with Patient: Greater than 30
[2016-10-06 13:34] LABS: Hemoglobin A1C 6.2 % (4.2-6.1)
--- NOTE | 2016-10-06 15:32 | HP ---
DATE OF ADMISSION: 10/05/2016 PRESENTING COMPLAINT: Difficulty breathing. HISTORY OF PRESENTING COMPLAINT: This is a very pleasant 66-year-old patient with extensive medical history, including congestive heart failure from EF 55%, coronary artery disease, essential hypertension, right-sided weakness from old stroke, diabetes mellitus type 2, obesity, hyperlipidemia, fibromyalgia, osteoarthritis, chronic urinary stress incontinence, COPD, chronic gastric and duodenal ectasia and history of argon plasma coagulation. Patient is also being worked up for vaginal bleeding and is due for examination under anesthesia at an outside facility because of her high risk. Patient presented after having a sensation getting smothered, could not breathe, some leg swelling and decided to come in for the same. Denies any cough or fever. Patient was given some breathing treatment, antibiotics in the ER and she actually felt better with the same. REVIEW OF SYSTEMS: CONSTITUTIONAL: Tired. HEENT: None. RESPIRATORY: As above. CARDIOVASCULAR: No chest pain. GASTROINTESTINAL: None. GENITOURINARY: Rectal and vaginal bleeding. MUSCULOSKELETAL: Pain in the joints. DERMATOLOGICAL: None. HEMATOLOGICAL: None. LYMPHATIC: None. PSYCHIATRY: None. NEUROLOGICAL: Weakness on the right side. Past medical history of GI bleed with gastric and duodenal ectasia with argon plasma coagulation, congestive heart failure with diastolic dysfunction, essential hypertension, right-sided weakness from old stroke, especially in the right arm, diabetes mellitus type 2, obesity, coronary artery disease with stent to the LAD, right coronary artery in January of 2016, hyperlipidemia, COPD, fibromyalgia, osteoarthritis, chronic urinary stress incontinence, depression, uterine cancer, urinary incontinence, history of right femoral pseudoaneurysm that was thrombosed, rectal and vaginal bleeding. PAST SURGICAL HISTORY: Cardiac cath with stent, uterine cancer, cardiac cath with stent in May 2015, D&C, EGD, colonoscopy. SOCIAL HISTORY: . Uses a wheelchair to get about, able to feed herself. Patient stopped smoking in May 2015, smoked 4 packs a day for about 40 years. Family history of cancer and pancreatitis. Allergies to HYDRALAZINE, CODEINE, HYDROCODONE, LISINOPRIL. On examination, vital signs on presentation: Temperature 97.4, pulse 57, respiration 20, blood pressure 106/69, pulse ox 98% on room air. GENERAL APPEARANCE: Well built, BMI of 42.5, sitting up, not in distress. EYES: Pupils equal. Conjunctivae normal. HEENT: Oral cavity normal. NECK: JVD not raised. Mass not palpable. Respiratory effort increased. LUNGS: Decreased breath sounds, some prolonged expiration. CARDIOVASCULAR: First and second sounds normal, mild edema. ABDOMEN: Soft, nontender. Liver and spleen not palpable. LYMPHATIC: No lymph node palpable in neck or axillae. PSYCHIATRY: Alert and oriented x3. Mood and affect normal. NEUROLOGICAL: Chronic weakness on the right side. More in the right arm than right leg, mostly on the right side. INVESTIGATIONS: White count 7.9, hemoglobin 7.5, potassium 4.3. BUN 55, creatinine 1.59. CHEST X-RAY: No obvious infiltrate. ProBNP is 805. EKG shows nonspecific ST-segment changes. ASSESSMENT: 1. Acute chronic obstructive pulmonary disease exacerbation in an ex-smoker, did respond to bronchodilators in the ER. 2. Recurrent vaginal bleeding with a prior history cancer for outpatient work-up. 3. Chronic diverticulosis. 4. 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 5. Chronic congestive heart failure from diastolic dysfunction, ejection fraction 55%, underlying coronary artery disease. 6. Essential hypertension. 7. Right arm weakness from old stroke. 8. Diabetes mellitus type 2, chronically on insulin. 9. Obesity, body mass index of 45, morbid type. 10. Coronary artery disease with stent to the LAD and right coronary artery in January of 2015. 11. Hyperlipidemia. 12. Fibromyalgia. 13. Primary osteoarthritis of multiple joints, bilaterally. 14. Chronic urinary stress incontinence. 15. Depression, not otherwise specified. PLAN: Care was discussed with the patient and at the bedside. Home medications are resumed. Given the presentation, will also get a Cardiology opinion. Do not feel this to be any infective process, hence will DC the antibiotics.
--- NOTE | 2016-10-06 15:52 | CONS ---
DATE OF CONSULTATION: This patient's medical records were reviewed and patient interviewed. Patient was admitted with symptoms of shortness of breath. She checked her oxygen at home and the oxygen saturation was 88%. She had some mild cough. Because of a continued smothering feeling in her chest, she came to the emergency room and subsequently was admitted. This patient has multiple problems: history of diabetes, hypertension, hyperlipidemia, COPD, coronary artery disease and a stroke. Patient also has issues with anemia and ongoing vaginal bleeding. Patient has a past history of uterine cancer which was treated with radiation. Patient had a prior stent to the left main in May of 2015, and in January of 2016 the patient underwent stent to the right coronary artery using a Xience stent. Patient has been on aspirin and Plavix ( ). Since her discharge about one month, patient continues to have ongoing vaginal bleeding and patient did get a transfusion. Patient denies any fever or chills. Denies any significant chest pain. Past medical history includes: 1. History of coronary artery disease with prior history of stent to the left main and right coronary artery. 2. History of uterine cancer treated with radiation. 3. History of COPD. 4. Congestive heart failure. Patient's home medications include: 1. Plavix 75 mg daily. 2. Lantus insulin. 3. Coreg 25 mg b.i.d. 4. Lasix 40 mg b.i.d. 5. Spironolactone 25 mg daily. Physical examination at present reveals a 66-year-old obesely built female who does not appear to be in any acute distress. Patient's blood pressure initially was elevated in the emergency room. The patient's blood pressure now is 150/62 mmHg. Head/ENT examination is negative. Neck is supple. There is no increase in jugular venous pressure. Both the carotid pulses are felt. There is no bruit. Chest is symmetrical. HEART: The PMI is not felt. First and second heart sounds are normal. Lungs are clinically clear to auscultation and percussion. Abdomen is soft. EXTREMITIES: Peripheral pulsations are not felt. EKG shows normal sinus rhythm with diffuse ST-T changes suggestive of left ventricular hypertrophy and strain pattern. This EKG is unchanged from before. Patient's troponins are normal. BNP level is 870. Patient's creatinine is 1.59. Chest x-ray does not show any significant failure. FINAL IMPRESSION: This patient's symptoms of shortness of breath are most likely a combination of anemia and underlying chronic obstructive pulmonary disease. At present patient is stable. There is no evidence of any significant left ventricular failure at present. The last echocardiogram done 2 months ago revealed normal left ventricular systolic function, and over the last one year patient's pulmonary pressures are normal and there is no evidence of pulmonary hypertension. In view of the patient's ongoing issues with vaginal bleeding and it being about 8 months since her prior angioplasty, and since patient had a drug-eluting stent with Xience, I discussed with the patient that we can safely discontinue the Plavix and continue on aspirin. This might help to cut down the patient's evidence of bleeding and may help the anemia. Patient wants to proceed with that. We will continue the rest of the medications.
[2016-10-06 17:28] LABS: Glucose,Whole Blood 170 mg/dL (75-99)
[2016-10-06] MEDS ORDERED: LEVOFLOXACIN 750MG-D5W PMX 750 MG in DEXTROSE/WATER 1 150ML.BAG IVPB SCH (18:00)
[2016-10-06 20:14] LABS: Glucose,Whole Blood 184 mg/dL (75-99)
[2016-10-06] MEDS ORDERED: INSULIN GLARGINE 100 UNIT/ML 10 ML VIAL SQ SCH (21:00)
[2016-10-06] MEDS: ATORVASTATIN 80 MG TAB PO SCH (22:29)
[2016-10-06] MEDS: MELATONIN 3 MG TABLET PO SCH (22:29)
[2016-10-07] MEDS ORDERED: ACETAMINOPHEN TAB 500 MG TAB ONE (02:35)
[2016-10-07 04:20] LABS: Glucose,Whole Blood 131 mg/dL (75-99)
[2016-10-07] MEDS: SODIUM CHLORIDE 0.9% 1,000 ML IV SCH (05:15)
[2016-10-07 08:17] LABS: Anisocytosis Slight; Basophils % (A) 0 %; CH 27.6; CHCM 31.9; Eosinophils # (A) 0.4 k/uL (0-0.7); Eosinophils % (A) 6 %; HCT 21.8 % (34.0-46.0); HDW 4.34; HGB 7.1 gm/dL (11.4-16.0); Hypochromasia Marked; Luc # (Auto) 0.17; Luc % (Auto) 3; Lymphocytes # (A) 1.1 k/uL (1.0-4.8); Lymphocytes % (A) 15 %; MCH 28.5 pg (25.0-35.0); MCHC 32.7 g/dL (31.0-37.0); MCV 87.1 fL (80.0-100.0); Mean Platelet Volume 7.2; Monocytes # (A) 0.4 k/uL (0-1.0); Monocytes % (A) 6 %; Neutrophils % (A) 71 %; Poikilocytosis Moderate; RDW 19.4 % (11.5-15.5); WBC (Perox) 7.47
[2016-10-07] MEDS: IPRATROPIUM-ALBUTEROL 3 ML NEB INHALATION SCH ×4 (09:18→19:40)
[2016-10-07] MEDS: CARVEDILOL 12.5 MG TAB PO SCH ×2 (09:19→17:36)
[2016-10-07] MEDS: FUROSEMIDE 40 MG TAB PO SCH ×2 (09:19→17:36)
[2016-10-07] MEDS: SPIRONOLACTONE 25 MG TAB PO SCH (09:20)
[2016-10-07] MEDS: ASPIRIN 81 MG CHEW PO SCH (09:20)
[2016-10-07] MEDS: amLODIPine 10 MG TAB PO SCH (09:21)
[2016-10-07] MEDS: INSULIN GLARGINE 100 UNIT/ML 10 ML VIAL SQ SCH ×2 (09:21→22:15)
[2016-10-07] MEDS: PANTOPRAZOLE 40 MG TABLET PO SCH (09:21)
[2016-10-07] MEDS: ENOXAPARIN 30 MG/0.3 ML SYRINGE SQ SCH (09:22)
[2016-10-07] MEDS: ACETAMINOPHEN TAB 500 MG TAB PO PRN ×2 (09:22→22:07)
[2016-10-07] MEDS: INSULIN LISPRO (humaLOG) 300 UNIT/3 ML VIAL SQ SCH ×3 (09:25→17:59)
[2016-10-07 09:26] LABS: Glucose,Whole Blood 183 mg/dL (75-99)
[2016-10-07 11:14] LABS: Glucose,Whole Blood 171 mg/dL (75-99)
--- NOTE | 2016-10-07 13:27 | P.PN ---
Subjective This is a very pleasant 66-year-old female patient who follows with Dr. Maddison Hermosillo as her primary care physician. She has a history of diabetes mellitus, hypertension, hyperlipidemia, coronary artery disease, fibromyalgia, CVA/TIA, anemia, uterine cancer status post radiation, femoral pseudoaneurysm. She also has a history of chronic obstructive pulmonary disease and severe pulmonary hypertension and follows with Dr. Caceres in our office. She did have an episode of ventilatory dependent respiratory failure in the past as well. She presented here to the emergency room yesterday with complaints of increasing shortness of breath, cough and congestion. Her chest x-ray does not reveal any evidence of acute cardiopulmonary process. There is evidence of hyperinflation compatible with COPD. Density in the right medial lung base. No changes compared to previous. She is anemic with a hemoglobin of 7.1 which may also be contributing to her shortness of breath. During her last admission approximately one month ago she did have ongoing vaginal bleeding and had a hemoglobin as low as 6.5. She was transfused at that time. She is seen today in consultation on the regular medical floor. She is awake and alert in no acute distress. She states she is breathing easier today as compared to yesterday. She is maintaining O2 saturations in the 90s on room air. Nonproductive cough. No chills or night sweats. She has been afebrile. No leukocytosis. The patient is seen again today 10/07/2016 in follow-up on the regular medical floor. She is awake and alert in no acute distress. She denies any shortness of breath, cough or congestion. Continues to maintain good O2 saturations in the upper 90s on room air. She did have issues with epistaxis and vaginal bleeding both of which resolved this morning. Her current hemoglobin is 7.1. Objective - Vital Signs Vital signs: Vital Signs Temp 97.6 F 10/07/16 07:00 Pulse 65 10/07/16 07:00 Resp 16 10/07/16 07:00 BP 143/67 10/07/16 07:00 Pulse Ox 97 10/07/16 07:00 Intake & Output 10/06/16 10/07/16 10/07/16 18:59 06:59 18:59 Intake Total 550 990 360 Balance 550 990 360 Intake: IV 50 Piperacillin-Tazobactam 3 50 .375 gm In Dextrose/Water 1 50ml.bag @ 12.5 mls/hr IVPB ONCE STA Rx#: [id number] Intake, IV Titration 140 Amount Sodium Chloride 0.9% 1, 140 000 ml @ 20 mls/hr IV . Q24H [facility] Rx#:[id number] Oral 360 990 360 Other: Voiding Method Bedside Commode Bedside Commode Bedside Commode # Voids 1 1 - Exam GENERAL EXAM: Morbidly obese. Alert, comfortable in no apparent distress. HEAD: Normocephalic. EYES: Normal reaction of pupils, equal size. NOSE: Clear with pink turbinates. THROAT: No erythema or exudates. NECK: No masses, no JVD. CHEST: No chest wall deformity. LUNGS: Equal air entry with no crackles, wheeze, rhonchi or dullness. CVS: S1 and S2 normal with no audible murmurs, regular rhythm. ABDOMEN: No hepatosplenomegaly, normal bowel sounds, no guarding or rigidity. SPINE: No scoliosis or deformity SKIN: No rashes CENTRAL NERVOUS SYSTEM: No focal deficits, tone is normal in all 4 extremities. Extremities: There is trace peripheral edema. No clubbing, no cyanosis. Peripheral pulses are intact. - Labs CBC & Chem 7: 10/07/16 07:47 10/05/16 16:20 Labs: Abnormal Lab Results - Last 24 Hours (Table) 10/06/16 10/06/16 10/07/16 Range/Units 17:16 20:13 01:53 RBC (3.80-5.40) m/uL Hgb (11.4-16.0) gm/dL Hct (34.0-46.0) % RDW (11.5-15.5) % POC Glucose (mg/dL) 170 H 184 H 131 H (75-99) mg/dL 10/07/16 10/07/16 10/07/16 Range/Units 07:47 09:23 11:12 RBC 2.50 L (3.80-5.40) m/uL Hgb 7.1 L (11.4-16.0) gm/dL Hct 21.8 L (34.0-46.0) % RDW 19.4 H (11.5-15.5) % POC Glucose (mg/dL) 183 H 171 H (75-99) mg/dL Assessment and Plan Plan: Impression: #1 Dyspnea, multifactorial in a patient with anemia, obesity/hypoventilation syndrome, COPD, pulmonary hypertension. #2 Recent admission for anemia secondary to ongoing vaginal bleeding. #3 Coronary artery disease with previous stent placements 5. currently on Plavix and aspirin. #4 Diabetes mellitus, type II. #5 Hypertension. #6 Hyperlipidemia. #7 History of femoral pseudoaneurysm. #8 CVA, history of. #9 History of acute respiratory failure requiring mechanical ventilatory support in June 2016. Plan: The patient was seen and evaluated by Dr. Caceres. She is stable from the pulmonary standpoint and could be discharged home once cleared medically. She can follow-up in our office in 1-2 weeks' time. She is encouraged to call sooner with any recurrence of symptoms or other questions or concerns.
[2016-10-07 17:28] LABS: Glucose,Whole Blood 272 mg/dL (75-99)
[2016-10-07] MEDS: DIPHENOX-ATROP 2.5-0.025 MG 1 EACH TAB PO PRN (17:35)
[2016-10-07 19:55] LABS: Glucose,Whole Blood 179 mg/dL (75-99)
[2016-10-07] MEDS: ATORVASTATIN 80 MG TAB PO SCH (22:08)
--- NOTE | 2016-10-07 22:25 | PN ---
DATE OF SERVICE: 10/07/2016 PRESENTING COMPLAINT: Difficulty breathing. INTERVAL HISTORY: This patient presented with COPD exacerbation; was actually overnight. Patient has had vaginal bleeding. Repeat hemoglobin was checked this morning. Just feels a bit tired. No dizziness. at the bedside. Review of systems done for constitutional, cardiovascular, GI, pulmonary, genitourinary; relevant findings as above. No further bleeding this morning. Current medications are reviewed that include nebulized bronchodilators. On examination, temperature 97.6, pulse 64, respiration 16, blood pressure 134/67, pulse ox 96% on room air. GENERAL APPEARANCE: Sitting up, comfortable. EYES: Pupils equal. Conjunctivae normal. NECK: JVD not raised. Mass not palpable. RESPIRATORY: Effort normal. LUNGS: Improved air entry. CARDIOVASCULAR: First and second sounds normal. No edema. ABDOMEN: Soft, nontender. Liver and spleen not palpable. PSYCHIATRY: Alert and oriented x3. Mood and affect normal. INVESTIGATIONS: Hemoglobin 7.1. ASSESSMENT: 1. Acute chronic obstructive pulmonary disease exacerbation in an ex-smoker. Feeling better. 2. Vaginal bleeding. Last bleed last night, though hemodynamically stable. 3. Chronic diverticulosis. 4. 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 5. Chronic congestive heart failure from diastolic dysfunction; ejection fraction 55%, from underlying coronary artery disease. 6. Essential hypertension. 7. Right arm weakness from old stroke. 8. Diabetes mellitus, type 2, chronically on insulin. 9. Obesity, body mass index of 45; morbid obesity. 10. Coronary artery disease with stent of the LAD and right coronary artery in January of 2015. 11. Hyperlipidemia. 12. Fibromyalgia. 13. Primary osteoarthritis of multiple joints bilaterally. 14. Chronic urinary stress incontinence. 15. Depression not otherwise specified. PLAN: Care was discussed with the patient and . Will recheck hemoglobin in the morning. If that is stable, then patient could be discharged. Additionally, on review of the course of patient's hemoglobin, patient keeps having recurrent bleeding and ( ) procedure and may have to come if the hemoglobin drops further. Will go ahead and transfuse a unit of blood. Currently patient is feeling weak and tired, and that may be ( ) grounds to give a unit of blood.
[2016-10-08 01:05] VITALS: PULSE 68
[2016-10-08] MEDS: MELATONIN 3 MG TABLET PO SCH (01:09)
[2016-10-08] MEDS: IPRATROPIUM-ALBUTEROL 3 ML NEB INHALATION SCH ×3 (07:25→16:31)
[2016-10-08 07:47] LABS: Glucose,Whole Blood 215 mg/dL (75-99)
[2016-10-08 07:48] LABS: Anisocytosis Slight; Basophils % (A) 0 %; CH 27.5; CHCM 30.9; Eosinophils # (A) 0.4 k/uL (0-0.7); Eosinophils % (A) 5 %; HCT 27.1 % (34.0-46.0); HDW 3.83; HGB 8.2 gm/dL (11.4-16.0); Hypochromasia Marked; Luc # (Auto) 0.12; Luc % (Auto) 2; Lymphocytes # (A) 1.1 k/uL (1.0-4.8); Lymphocytes % (A) 15 %; MCH 27.1 pg (25.0-35.0); MCHC 30.3 g/dL (31.0-37.0); MCV 89.5 fL (80.0-100.0); Mean Platelet Volume 7.5; Monocytes # (A) 0.4 k/uL (0-1.0); Monocytes % (A) 6 %; Neutrophils # (A) 5.1 k/uL (1.3-7.7); Neutrophils % (A) 72 %; Poikilocytosis Slight; RBC 3.03 m/uL (3.80-5.40); RDW 19.4 % (11.5-15.5); WBC 7.1 k/uL (3.8-10.6); WBC (Perox) 7.54
[2016-10-08 08:09] VITALS: BP 139/62; RESP 16; TEMP 97.7
[2016-10-08] MEDS: INSULIN LISPRO (humaLOG) 300 UNIT/3 ML VIAL SQ SCH ×2 (08:17→13:14)
[2016-10-08] MEDS: CARVEDILOL 12.5 MG TAB PO SCH (08:18)
[2016-10-08] MEDS: SODIUM CHLORIDE 0.9% 1,000 ML IV SCH (08:18)
[2016-10-08] MEDS: PANTOPRAZOLE 40 MG TABLET PO SCH (08:18)
[2016-10-08] MEDS: FUROSEMIDE 40 MG TAB PO SCH (08:19)
[2016-10-08] MEDS: ASPIRIN 81 MG CHEW PO SCH (08:19)
[2016-10-08] MEDS: amLODIPine 10 MG TAB PO SCH (08:19)
[2016-10-08] MEDS: INSULIN GLARGINE 100 UNIT/ML 10 ML VIAL SQ SCH (08:21)
[2016-10-08] MEDS: ENOXAPARIN 30 MG/0.3 ML SYRINGE SQ SCH (08:21)
[2016-10-08] MEDS: ACETAMINOPHEN TAB 500 MG TAB PO PRN (09:17)
[2016-10-08 11:40] LABS: Glucose,Whole Blood 243 mg/dL (75-99)
--- NOTE | 2016-10-08 11:58 | P.PN ---
Subjective This is a very pleasant 66-year-old female patient who follows with Dr. Maddison Hermosillo as her primary care physician. She has a history of diabetes mellitus, hypertension, hyperlipidemia, coronary artery disease, fibromyalgia, CVA/TIA, anemia, uterine cancer status post radiation, femoral pseudoaneurysm. She also has a history of chronic obstructive pulmonary disease and severe pulmonary hypertension and follows with Dr. Caceres in our office. She did have an episode of ventilatory dependent respiratory failure in the past as well. She presented here to the emergency room yesterday with complaints of increasing shortness of breath, cough and congestion. Her chest x-ray does not reveal any evidence of acute cardiopulmonary process. There is evidence of hyperinflation compatible with COPD. Density in the right medial lung base. No changes compared to previous. She is anemic with a hemoglobin of 7.1 which may also be contributing to her shortness of breath. During her last admission approximately one month ago she did have ongoing vaginal bleeding and had a hemoglobin as low as 6.5. She was transfused at that time. She is seen today in consultation on the regular medical floor. She is awake and alert in no acute distress. She states she is breathing easier today as compared to yesterday. She is maintaining O2 saturations in the 90s on room air. Nonproductive cough. No chills or night sweats. She has been afebrile. No leukocytosis. The patient is seen again today 10/07/2016 in follow-up on the regular medical floor. She is awake and alert in no acute distress. She denies any shortness of breath, cough or congestion. Continues to maintain good O2 saturations in the upper 90s on room air. She did have issues with epistaxis and vaginal bleeding both of which resolved this morning. Her current hemoglobin is 7.1. The patient is seen again today 10/08/2016 in follow-up. She is awake and alert in no acute distress. She is currently sitting up in the chair at the bedside. She is anxious to go home. No pulmonary complaints. Objective - Vital Signs Vital signs: Vital Signs Temp 97.7 F 10/08/16 07:00 Pulse 68 10/08/16 07:00 Resp 16 10/08/16 07:00 BP 139/62 10/08/16 07:00 Pulse Ox 94 L 10/08/16 07:00 Intake & Output 10/07/16 10/08/16 10/08/16 18:59 06:59 18:59 Intake Total 720 550 240 Balance 720 550 240 Weight 101.5 kg Intake: Intake, IV Titration 240 Amount Sodium Chloride 0.9% 1, 240 000 ml @ 20 mls/hr IV . Q24H [facility] Rx#:[id number] Oral 720 240 Blood Product 310 Rc As-1 Unit 310 [id number] Other: Voiding Method Toilet Toilet Toilet Bedside Commode Bedside Commode Bedside Commode # Voids 1 1 # Bowel Movements 1 - Exam GENERAL EXAM: Morbidly obese. Alert, comfortable in no apparent distress. HEAD: Normocephalic. EYES: Normal reaction of pupils, equal size. NOSE: Clear with pink turbinates. THROAT: No erythema or exudates. NECK: No masses, no JVD. CHEST: No chest wall deformity. LUNGS: Equal air entry with no crackles, wheeze, rhonchi or dullness. CVS: S1 and S2 normal with no audible murmurs, regular rhythm. ABDOMEN: No hepatosplenomegaly, normal bowel sounds, no guarding or rigidity. SPINE: No scoliosis or deformity SKIN: No rashes CENTRAL NERVOUS SYSTEM: No focal deficits, tone is normal in all 4 extremities. Extremities: There is trace peripheral edema. No clubbing, no cyanosis. Peripheral pulses are intact. - Labs CBC & Chem 7: 10/08/16 07:26 10/05/16 16:20 Labs: Abnormal Lab Results - Last 24 Hours (Table) 10/07/16 10/07/16 10/08/16 Range/Units 17:26 19:54 07:26 RBC 3.03 L (3.80-5.40) m/uL Hgb 8.2 L (11.4-16.0) gm/dL Hct 27.1 L (34.0-46.0) % MCHC 30.3 L (31.0-37.0) g/dL RDW 19.4 H (11.5-15.5) % POC Glucose (mg/dL) 272 H 179 H (75-99) mg/dL 10/08/16 10/08/16 Range/Units 07:45 11:34 RBC (3.80-5.40) m/uL Hgb (11.4-16.0) gm/dL Hct (34.0-46.0) % MCHC (31.0-37.0) g/dL RDW (11.5-15.5) % POC Glucose (mg/dL) 215 H 243 H (75-99) mg/dL Assessment and Plan Plan: Impression: #1 Dyspnea, multifactorial in a patient with anemia, obesity/hypoventilation syndrome, COPD, pulmonary hypertension. #2 Recent admission for anemia secondary to ongoing vaginal bleeding. #3 Coronary artery disease with previous stent placements 5. currently on Plavix and aspirin. #4 Diabetes mellitus, type II. #5 Hypertension. #6 Hyperlipidemia. #7 History of femoral pseudoaneurysm. #8 CVA, history of. #9 History of acute respiratory failure requiring mechanical ventilatory support in June 2016. Plan: The patient was seen and evaluated by Dr. Caceres. She is stable from the pulmonary standpoint and could be discharged home. She can follow-up in our office in 1-2 weeks' time. She is encouraged to call sooner with any recurrence of symptoms or other questions or concerns.
[2016-10-08] MEDS: DIPHENOX-ATROP 2.5-0.025 MG 1 EACH TAB PO PRN (14:40)
--- NOTE | 2016-10-10 16:52 | DS ---
DATE OF ADMISSION: 10/05/2016 DATE OF DISCHARGE: 10/08/2016 FINAL DIAGNOSIS(ES): 1. Acute chronic obstructive pulmonary disease exacerbation in an ex-smoker. 2. Recurrent vaginal bleeding acutely causing acute blood loss anemia. 3. Chronic diverticulosis. 4. Chronic gastric ( ) ectasia with history of argon plasma coagulation. 5. Chronic congestive heart failure from diastolic dysfunction, ejection fraction 55%, underlying coronary artery disease. 6. Essential hypertension. 7. Right arm weakness from old an stroke. 8. Diabetes mellitus, type II, chronically on insulin. 9. Obesity, body mass index of 45, morbid obesity. 10. Coronary artery disease with stent to left anterior descending coronary artery and right coronary artery in January 2015. 11. Hyperlipidemia. 12. Fibromyalgia. 13. Primary osteoarthritis in multiple joints bilateral. 14. Chronic urinary stress incontinence. 15. Depression not otherwise specified. 16. Acute blood loss anemia from vaginal bleeding requiring blood transfusion. HOSPITAL COURSE: This patient presented with COPD exacerbation, also had recurrent vaginal bleeding. Patient did get transfused a unit of blood as she was symptomatic, hemoglobin at the time of discharge was 8.2. The patient due to do down for hysterectomy surgery. Patient definitely a high risk but no absolute contraindications. If she does not have the surgery, then with longstanding recurrent bleeding, this may be extremely detrimental. Patient is willing to take the risk for the same and this was discussed in detail with the patient's . On exam: LUNGS: Improved air entry. CARDIOVASCULAR: First and second sounds normal. PSYCH: Alert and oriented x3. Mood and affect normal. DISCHARGE PLANNING: More than 35 minutes. DISCHARGE MEDICATIONS: 1. Plavix 75 mg p.o. q.h.s. 2. Lipitor 80 mg q.h.s. 3. Protonix 40 mg a day. 4. Aspirin 81 mg a day. 5. Lantus 55 units subcu q.h.s. 6. Proventil HFA 2 puffs q.4. 7. Norvasc 10 mg p.o. daily. 8. Coreg 25 mg p.o. b.i.d. 9. Novolog 15 units subcu a.c. t.i.d. 10. Lantus 10 units in the morning. 11. Nitrostat 0.4 sublingual q.5 p.r.n. 12. Dicyclomine 10 mg p.o. q.8. 13. Nystatin topical b.i.d. p.r.n. 14. Lasix 40 mg p.o. b.i.d. 15. Antivert 12.5 q.6 p.r.n. 16. ( ) 25 mg Monday, Monday and Monday. Follow-up with Dr. Hermosillo in one week. Patient to follow up with [facility] next week. Discharge planning more than 35 minutes.
== END 2016-10-08 16:45 | disposition home or self-care (01) | DRG 191 ==
LOC: EC 15:53 → 5MS5E 18:16
PROVIDERS: ADMIT Hospitalist; ATTEND Hospitalist
PROC: 30233N1 Transfusion of Nonautologous Red Blood Cells into Peripheral Vein, Percutaneous Approach (ICD-10-PCS; principal; 2016-10-07)
DX: J44.1 Chronic obstructive pulmonary disease with (acute) exacerbation (principal); I50.32 Chronic diastolic (congestive) heart failure; I27.2 Other secondary pulmonary hypertension; D62 Acute posthemorrhagic anemia; I11.0 Hypertensive heart disease with heart failure; E66.2 Morbid (severe) obesity with alveolar hypoventilation; I69.351 Hemiplegia and hemiparesis following cerebral infarction affecting right dominant side; Z68.42 Body mass index [BMI] 45.0-49.9, adult; I08.1 Rheumatic disorders of both mitral and tricuspid valves; J45.909 Unspecified asthma, uncomplicated; I25.2 Old myocardial infarction; K57.90 Diverticulosis of intestine, part unspecified, without perforation or abscess without bleeding; N93.9 Abnormal uterine and vaginal bleeding, unspecified; E11.9 Type 2 diabetes mellitus without complications; R04.0 Epistaxis; R00.2 Palpitations; I25.10 Atherosclerotic heart disease of native coronary artery without angina pectoris; M54.5 Low back pain; E78.5 Hyperlipidemia, unspecified; K58.9 Irritable bowel syndrome, unspecified; N39.3 Stress incontinence (female) (male); F32.9 Major depressive disorder, single episode, unspecified; F41.9 Anxiety disorder, unspecified; M79.7 Fibromyalgia; K31.819 Angiodysplasia of stomach and duodenum without bleeding; M19.91 Primary osteoarthritis, unspecified site; G43.909 Migraine, unspecified, not intractable, without status migrainosus; H26.9 Unspecified cataract; H40.9 Unspecified glaucoma; F40.240 Claustrophobia; Z87.891 Personal history of nicotine dependence; Z85.42 Personal history of malignant neoplasm of other parts of uterus; Z79.4 Long term (current) use of insulin; Z79.02 Long term (current) use of antithrombotics/antiplatelets; Z79.82 Long term (current) use of aspirin; Z79.899 Other long term (current) drug therapy; Z99.3 Dependence on wheelchair; Z92.3 Personal history of irradiation; Z80.0 Family history of malignant neoplasm of digestive organs; Z95.5 Presence of coronary angioplasty implant and graft; Z87.11 Personal history of peptic ulcer disease; Z88.5 Allergy status to narcotic agent; Z88.8 Allergy status to other drugs, medicaments and biological substances; Z87.19 Personal history of other diseases of the digestive system; Z87.448 Personal history of other diseases of urinary system; Z87.09 Personal history of other diseases of the respiratory system; Z87.440 Personal history of urinary (tract) infections; Z87.01 Personal history of pneumonia (recurrent); Z99.81 Dependence on supplemental oxygen; Z82.3 Family history of stroke; Z82.49 Family history of ischemic heart disease and other diseases of the circulatory system; Z83.79 Family history of other diseases of the digestive system; Z81.1 Family history of alcohol abuse and dependence; Z90.49 Acquired absence of other specified parts of digestive tract
CPT/HCPCS: 36415; 71020; 80053; 82550; 82553; 83036; 83605; 83880; 84484; 85025; 85610; 85730; 86850; 86870; 86880; 86900; 86901; 86902; 86920; 87040; 93005; 94640; 96365; 99285

== ENCOUNTER 2016-10-19 16:28 | Emergency (ER) | payer MEDICARE ==
[2016-10-19] MEDS ORDERED: SODIUM CHLORIDE 0.9% 1,000 ML IV ONE (17:04)
--- NOTE | 2016-10-19 17:14 | ED ---
General Adult HPI - General Chief complaint: Dizziness Stated complaint: Need Hemoglobin Checked Time Seen by Provider: 10/19/16 16:55 Source: patient Mode of arrival: wheelchair Limitations: no limitations - History of Present Illness Initial comments: This is a 66-year-old female to history of endometrial cancer and chronic uterine bleeding for the last year who presents here department for lightheadedness, and headache. She states that her last hemoglobin was checked and it was 8.3. This was a couple of days ago. She said that since then she's been having worsening vaginal bleeding. She developed a headache which is typical for her when she has low hemoglobin and also some lightheadedness. She denies any chest pain or shortness of breath. No abdominal pain or cramping. She called her surgeon who is going to do and expiratory surgery and possible hysterectomy next couple of days. She was advised come emergency department to evaluate for anemia. - Related Data Home Medications Medication Instructions Recorded Confirmed Clopidogrel [Plavix] 75 mg PO HS 06/12/15 10/19/16 Insulin Glargine [Lantus] 65 unit SQ HS 01/15/16 10/19/16 Albuterol Sulfate [Proventil Hfa] 2 puff INHALATION RT-Q4H PRN 02/15/16 10/19/16 Carvedilol [Coreg] 25 mg PO BID 08/07/16 10/19/16 Insulin Aspart [NovoLOG] 20 unit SQ AC-TID 08/07/16 10/19/16 Insulin Glargine [Lantus] 10 unit SQ QAM 08/07/16 10/19/16 Nitroglycerin Sl Tabs [Nitrostat] 0.4 mg SUBLINGUAL Q5M PRN 08/07/16 10/19/16 Dicyclomine HCl 10 mg PO Q8HR PRN 08/26/16 10/19/16 Nystatin 100,000 Unit/gm Powd 1 applic TOPICAL BID PRN 08/26/16 10/19/16 [Mycostatin Powder] Furosemide [Lasix] 40 mg PO BID 09/06/16 10/19/16 Spironolactone [Aldactone] 25 mg PO MOWEFR 09/06/16 10/19/16 Meclizine [Antivert] 12.5 mg PO Q6H PRN 10/19/16 10/19/16 Previous Rx's Medication Instructions Recorded Atorvastatin [Lipitor] 80 mg PO HS #30 tab 06/16/15 Pantoprazole Sodium [Protonix] 40 mg PO DAILY #30 tablet. 06/21/15 Aspirin 81 mg PO DAILY chew 08/28/15 amLODIPine [Norvasc] 10 mg PO DAILY #30 tab 07/20/16 Ciprofloxacin HCl [Cipro] 500 mg PO Q12HR #14 tablet 10/19/16 Allergies Allergy/AdvReac Type Severity Reaction Status Date / Time hydralazine Allergy Severe Anaphylaxis Verified 10/19/16 17:52 codeine AdvReac Severe Verified 10/19/16 17:52 Sedation hydrocodone AdvReac Severe Verified 10/19/16 17:52 Sedation lisinopril AdvReac Cough Verified 10/19/16 17:52 Review of Systems ROS Statement: Those systems with pertinent positive or pertinent negative responses have been documented in the HPI. ROS Other: All systems not noted in ROS Statement are negative. Past Medical History Past Medical History: Asthma, Cancer, Heart Failure, COPD, CVA/TIA, Diabetes Mellitus, Eye Disorder, Fibromyalgia, GI Bleed, Hyperlipidemia, Hypertension, Myocardial Infarction ([place]), Osteoarthritis (OA), Pneumonia Additional Past Medical History / Comment(s): anemia, possible uterine lesion/ cancer (pt has hx of uterine cancer tx with radiation), cystitis and vaginal bleeding. 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 Last Myocardial Infarction Date:: 06/12/15 History of Any Multi-Drug Resistant Organisms: None Reported Past Surgical History: Cholecystectomy, Heart Catheterization, Heart Catheterization With Stent Additional Past Surgical History / Comment(s): 06/12/15 Cardiac cath, 06/15/15 PTCA with stent mid L main, D&C X2, YRS AGO HAD A DEVICE IN FOR RADIATION TX FOR UTERINE CA THAT WAS SINCE REMOVED.EGD/COLONOSCOPY.02/18/16 heart cath 3 stents to rca Past Anesthesia/Blood Transfusion Reactions: Motion Sickness Additional Past Anesthesia/Blood Transfusion Reaction / Comment(s): CLAUSTROPHOBIA. Pt has had blood transfusion in past-no reaction to blood Date of Last Stent Placement:: 02/18/16 Past Psychological History: Anxiety, Depression Additional Psychological History / Comment(s): Pt resides with her spouse. She is basically wheel chair bound most of the time for the past several yrs. She at times ambulates with assistance or pushes her wheelchair. She feeds herself. She has a supportive family. She has a sister that helps with her bathing and her олег and spouse will help with her medication. Smoking Status: Former smoker Past Alcohol Use History: None Reported Additional Past Alcohol Use History / Comment(s): STARTED SMOKING AGE 20, STOPPED SMOKING - PPD BUT WOULD BURN HALF OUT IN TIEN TRAY Past Drug Use History: None Reported - Past Family History Father Additional Family Medical History / Comment(s): WAS A DRINKER WHEN YOUNGER , LOST AN ARM IN THE SERVICE, PANCREATITIS, LIVER CANCER- from at age 57yrs. Mother Family Medical History: CVA/TIA Additional Family Medical History / Comment(s): HEART PROBLEMS, STARTED DRINKING AFTER OF HER , she of a ruptured liver at age 59 yrs. General Exam - General Exam Comments Initial Comments: Constitutional: Awake alert Appears comfortable Head: Normocephalic atraumatic Eyes: no conjunctival injection No scleral icterus EOMI, pupils are 4 mm reactive bilaterally Neck: No JVD Supple Heart: Regular rate rhythm normal S1-S2 no murmurs Lungs: Clear to auscultation bilaterally No wheezing No rales Abdomen: Soft nondistended nontender, no pelvic pain or tenderness Extremities: Non edematous DP pulses intact Radial pulses intact Neuro: A&Ox3 No focal neurologic deficits Psych: Appropriate mood and affect Limitations: no limitations Course Vital Signs 10/19/16 10/19/16 16:47 19:44 Temperature 98.3 F 98.0 F Pulse Rate 62 64 Respiratory 18 20 Rate Blood Pressure 167/71 161/65 O2 Sat by Pulse 96 95 Oximetry EKG Findings - EKG Comments: EKG Findings:: EKG showing normal sinus rhythm with a rate of 65. No abnormal ST segment changes or T-wave inversions. QTC is 445. Other intervals are normal. No ectopy. Medical Decision Making - Medical Decision Making Physical 66-year-old female came to the emergency room because of dizziness and lightheadedness. She thought that she was anemic. Hemoglobin is 8.7 which is baseline for her. The rest her labs were unremarkable except for suspicion for urinary tract infection. The patient will be started on Cipro twice a day. She can go home. She was encouraged to drink any fluids. She can have her surgery done tomorrow. Told her to return should worsening or changing symptoms. All questions were answered. - Lab Data Result diagrams: 10/19/16 17:10 10/19/16 17:10 Lab Results 10/19/16 10/19/16 10/19/16 Range/Units 17:10 17:10 17:10 WBC 6.8 (3.8-10.6) k/uL RBC 3.18 L (3.80-5.40) m/uL Hgb 8.7 L (11.4-16.0) gm/dL Hct 27.7 L (34.0-46.0) % MCV 87.1 (80.0-100.0) fL MCH 27.5 (25.0-35.0) pg MCHC 31.6 (31.0-37.0) g/dL RDW 17.8 H (11.5-15.5) % Plt Count 178 (150-450) k/uL Neutrophils % 75 % Lymphocytes % 13 % Monocytes % 4 % Eosinophils % 6 % Basophils % 0 % Neutrophils # 5.2 (1.3-7.7) k/uL Lymphocytes # 0.9 L (1.0-4.8) k/uL Monocytes # 0.3 (0-1.0) k/uL Eosinophils # 0.4 (0-0.7) k/uL Basophils # 0.0 (0-0.2) k/uL Hypochromasia Moderate Poikilocytosis Slight Anisocytosis Slight Sodium 140 (137-145) mmol/L Potassium 4.2 (3.5-5.1) mmol/L Chloride 106 (98-107) mmol/L Carbon Dioxide 22 (22-30) mmol/L Anion Gap 12 mmol/L BUN 57 H (7-17) mg/dL Creatinine 1.72 H (0.52-1.04) mg/dL Est GFR (MDRD) Af Amer 36 (>60 ml/min/1.73 sqM) Est GFR (MDRD) Non-Af 30 (>60 ml/min/1.73 sqM) Glucose 295 H (74-99) mg/dL Calcium 9.3 (8.4-10.2) mg/dL Total Bilirubin 0.6 (0.2-1.3) mg/dL AST 16 (14-36) U/L ALT 27 (9-52) U/L Alkaline Phosphatase 124 (38-126) U/L Total Protein 6.9 (6.3-8.2) g/dL Albumin 3.8 (3.5-5.0) g/dL Urine Color Urine Appearance (Clear) Urine pH (5.0-8.0) Ur Specific [place] (1.001-1.035) Urine Protein (Negative) Urine Glucose (UA) (Negative) Urine Ketones (Negative) Urine Blood (Negative) Urine Nitrite (Negative) Urine Bilirubin (Negative) Urine Urobilinogen (<2.0) mg/dL Ur Leukocyte Esterase (Negative) Urine RBC (0-5) /hpf Urine WBC Clumps (None) /hpf Urine Bacteria (None) /hpf Hyaline Casts (0-2) /lpf Urine Mucus (None) /hpf Blood Type A Positive Blood Type Recheck No Antibody Screen POSITIVE Spec Expiration Date 10/22/2016 - 230910/19/16 Range/Units 19:09 WBC (3.8-10.6) k/uL RBC (3.80-5.40) m/uL Hgb (11.4-16.0) gm/dL Hct (34.0-46.0) % MCV (80.0-100.0) fL MCH (25.0-35.0) pg MCHC (31.0-37.0) g/dL RDW (11.5-15.5) % Plt Count (150-450) k/uL Neutrophils % % Lymphocytes % % Monocytes % % Eosinophils % % Basophils % % Neutrophils # (1.3-7.7) k/uL Lymphocytes # (1.0-4.8) k/uL Monocytes # (0-1.0) k/uL Eosinophils # (0-0.7) k/uL Basophils # (0-0.2) k/uL Hypochromasia Poikilocytosis Anisocytosis Sodium (137-145) mmol/L Potassium (3.5-5.1) mmol/L Chloride (98-107) mmol/L Carbon Dioxide (22-30) mmol/L Anion Gap mmol/L BUN (7-17) mg/dL Creatinine (0.52-1.04) mg/dL Est GFR (MDRD) Af Amer (>60 ml/min/1.73 sqM) Est GFR (MDRD) Non-Af (>60 ml/min/1.73 sqM) Glucose (74-99) mg/dL Calcium (8.4-10.2) mg/dL Total Bilirubin (0.2-1.3) mg/dL AST (14-36) U/L ALT (9-52) U/L Alkaline Phosphatase (38-126) U/L Total Protein (6.3-8.2) g/dL Albumin (3.5-5.0) g/dL Urine Color Light Red Urine Appearance Cloudy H (Clear) Urine pH 5.0 (5.0-8.0) Ur Specific [place] 1.010 (1.001-1.035) Urine Protein 1+ H (Negative) Urine Glucose (UA) Negative (Negative) Urine Ketones Negative (Negative) Urine Blood Large H (Negative) Urine Nitrite Negative (Negative) Urine Bilirubin Negative (Negative) Urine Urobilinogen <2.0 (<2.0) mg/dL Ur Leukocyte Esterase Large H (Negative) Urine RBC >182 H (0-5) /hpf Urine WBC Clumps Few H (None) /hpf Urine Bacteria Many H (None) /hpf Hyaline Casts 56 H (0-2) /lpf Urine Mucus Rare H (None) /hpf Blood Type Blood Type Recheck Antibody Screen Spec Expiration Date Disposition Clinical Impression: Lightheadedness, UTI (urinary tract infection), Chronic anemia Disposition: HOME SELF-CARE Condition: Stable Instructions: Dizziness (ED) Prescriptions: Ciprofloxacin HCl [Cipro] 500 mg PO Q12HR #14 tablet Referrals: Tyler Hermosillo DO [Primary Care Provider] - 1-2 days
[2016-10-19 17:47] LABS: Anisocytosis Slight; Basophils % (A) 0 %; CH 27.8; CHCM 32.1; Eosinophils # (A) 0.4 k/uL (0-0.7); Eosinophils % (A) 6 %; HCT 27.7 % (34.0-46.0); HDW 3.78; HGB 8.7 gm/dL (11.4-16.0); Hypochromasia Moderate; Luc # (Auto) 0.09; Luc % (Auto) 1; Lymphocytes # (A) 0.9 k/uL (1.0-4.8); Lymphocytes % (A) 13 %; MCH 27.5 pg (25.0-35.0); MCHC 31.6 g/dL (31.0-37.0); MCV 87.1 fL (80.0-100.0); Mean Platelet Volume 7.9; Monocytes # (A) 0.3 k/uL (0-1.0); Monocytes % (A) 4 %; Neutrophils # (A) 5.2 k/uL (1.3-7.7); Neutrophils % (A) 75 %; Poikilocytosis Slight; RBC 3.18 m/uL (3.80-5.40); RDW 17.8 % (11.5-15.5); WBC 6.8 k/uL (3.8-10.6); WBC (Perox) 6.96
[2016-10-19 17:56] LABS: Calcium 9.3 mg/dL (8.4-10.2); Potassium 4.2 mmol/L (3.5-5.1); Total Bilirubin 0.6 mg/dL (0.2-1.3); Total Protein 6.9 g/dL (6.3-8.2)
[2016-10-19 19:23] LABS: Appearance,Urine Cloudy (Clear); Bacteria,Urine Many /hpf; Bilirubin,Urine Negative (Negative); Glucose,Urine (UA) Negative (Negative); Ketones,Urine Negative (Negative); Leukocyte Esterase,Urine Large (Negative); Mucus,Urine Rare /hpf; Nitrite,Urine Negative (Negative); Particle Count 10150; Protein,Urine 1+ (Negative); RBC,Urine >182 /hpf (0-5); UA Billing (MACRO vs. MICRO) MICRO; Urobilinogen,Urine <2.0 mg/dL (<2.0)
[2016-10-19 19:45] VITALS: BP 161/65; PULSE 64; RESP 20; TEMP 98
== END 2016-10-19 19:55 | disposition home or self-care (01) ==
LOC: EC 16:28
DX: N39.0 Urinary tract infection, site not specified (principal); R42 Dizziness and giddiness; R51 Headache; D50.0 Iron deficiency anemia secondary to blood loss (chronic); N93.9 Abnormal uterine and vaginal bleeding, unspecified; I11.0 Hypertensive heart disease with heart failure; I50.9 Heart failure, unspecified; E11.9 Type 2 diabetes mellitus without complications; I10 Essential (primary) hypertension; I25.2 Old myocardial infarction; F32.9 Major depressive disorder, single episode, unspecified; F41.9 Anxiety disorder, unspecified; Z86.73 Personal history of transient ischemic attack (TIA), and cerebral infarction without residual deficits; Z85.42 Personal history of malignant neoplasm of other parts of uterus; Z87.891 Personal history of nicotine dependence; Z79.01 Long term (current) use of anticoagulants; Z79.4 Long term (current) use of insulin; Z79.899 Other long term (current) drug therapy; Z88.5 Allergy status to narcotic agent; Z88.8 Allergy status to other drugs, medicaments and biological substances
CPT/HCPCS: 36415; 80053; 81001; 85025; 86850; 86870; 86880; 86900; 86901; 93005; 96360; 96361; 99284

== ENCOUNTER 2016-11-23 12:35 | Inpatient (IN) | payer MEDICARE, OTHER ==
[2016-11-23] MEDS ORDERED: IPRATROPIUM-ALBUTEROL 3 ML NEB INHALATION STA (13:33)
[2016-11-23 14:13] LABS: Partial Thromboplastin Time 23.5 sec (22.0-30.0); Prothrombin Time 10.5 sec (9.0-12.0)
[2016-11-23 14:17] LABS: Calcium 8.8 mg/dL (8.4-10.2); Magnesium 1.8 mg/dL (1.6-2.3); Potassium 4.5 mmol/L (3.5-5.1); Total Bilirubin 0.7 mg/dL (0.2-1.3); Total Protein 6.1 g/dL (6.3-8.2)
[2016-11-23 14:19] LABS: Basophils % (A) 0 %; CH 25.2; CHCM 31.7; Eosinophils # (A) 0.4 k/uL (0-0.7); Eosinophils % (A) 6 %; HCT 23.5 % (34.0-46.0); HDW 4.73; HGB 7.4 gm/dL (11.4-16.0); Hypochromasia Marked; Luc # (Auto) 0.11; Luc % (Auto) 2; Lymphocytes # (A) 0.8 k/uL (1.0-4.8); Lymphocytes % (A) 13 %; MCH 25.1 pg (25.0-35.0); MCHC 31.5 g/dL (31.0-37.0); Mean Platelet Volume 7.6; Monocytes # (A) 0.3 k/uL (0-1.0); Monocytes % (A) 5 %; Neutrophils # (A) 4.5 k/uL (1.3-7.7); Neutrophils % (A) 74 %; Poikilocytosis Marked; RBC 2.95 m/uL (3.80-5.40); RDW 15.7 % (11.5-15.5); WBC (Perox) 6.27
[2016-11-23 14:25] LABS: MCV 79.6 fL (80.0-100.0)
--- NOTE | 2016-11-23 14:34 | XR ---
EXAMINATION TYPE: XR chest 2V DATE OF EXAM: 11/23/2016 COMPARISON: Chest x-ray October 06, 2016. HISTORY: History of COPD presents with shortness of breath TECHNIQUE: Frontal and lateral views of the chest are obtained. FINDINGS: There is persistent cardiomegaly with suspected new small to tiny bilateral pleural effusi ons as there is blunting of posterior lateral costophrenic angles and mild interstitial edema Lianet B lines in the left basilar periphery. Upper lungs are clear without pneumothorax. The osseous stru ctures are intact. IMPRESSION: Suspect CHF exacerbation as there is cardiomegaly with small bilateral pleural effusions and mild interstitial edema, clinical correlation advised.
--- NOTE | 2016-11-23 14:36 | ED ---
SOB HPI - General Chief Complaint: Shortness of Breath Stated Complaint: Difficulty Breathing/Dizziness Time Seen by Provider: 11/23/16 13:19 Source: patient, RN notes reviewed, old records reviewed Mode of arrival: wheelchair Limitations: no limitations - History of Present Illness Initial Comments: This is a 66-year-old female with a history of multiple medical problems who presents with complaints of progressive shortness breath over the past 3 days. Getting worse she notes that her pulse oximetry was low at night down 84% EKG during today's low but higher patient is still suffering from chronic anemia from vaginal bleeding she has operation pending at this time she otherwise is been getting shots for blood production and apparently transfusions. The issue today however the shortness of breath she denies any overt chest pain except for an occasional maybe once a month she states right-sided chest pain none today. No cough no phlegm production no fevers chills or sweats. MD Complaint: shortness of breath - Related Data Home Medications Medication Instructions Recorded Confirmed Insulin Glargine [Lantus] 60 unit SQ HS 01/15/16 11/23/16 Albuterol Sulfate [Proventil Hfa] 2 puff INHALATION RT-Q4H PRN 02/15/16 11/23/16 Carvedilol [Coreg] 25 mg PO BID 08/07/16 11/23/16 Insulin Aspart [NovoLOG] 20 unit SQ AC-TID 08/07/16 11/23/16 Insulin Glargine [Lantus] 10 unit SQ QAM 08/07/16 11/23/16 Nitroglycerin Sl Tabs [Nitrostat] 0.4 mg SUBLINGUAL Q5M PRN 08/07/16 11/23/16 Nystatin 100,000 Unit/gm Powd 1 applic TOPICAL BID PRN 08/26/16 11/23/16 [Mycostatin Powder] Furosemide [Lasix] 40 mg PO BID 09/06/16 11/23/16 Meclizine [Antivert] 12.5 mg PO Q6H PRN 10/19/16 11/23/16 Allopurinol [Zyloprim] 150 mg PO DAILY 11/23/16 11/23/16 LORazepam [Ativan] 0.5 mg PO TID PRN 11/23/16 11/23/16 Previous Rx's Medication Instructions Recorded Atorvastatin [Lipitor] 80 mg PO HS #30 tab 06/16/15 Pantoprazole Sodium [Protonix] 40 mg PO DAILY #30 tablet. 06/21/15 Aspirin 81 mg PO DAILY chew 08/28/15 amLODIPine [Norvasc] 10 mg PO DAILY #30 tab 07/20/16 Allergies Allergy/AdvReac Type Severity Reaction Status Date / Time hydralazine Allergy Severe Anaphylaxis Verified 11/23/16 15:31 codeine AdvReac Severe Verified 11/23/16 15:31 Sedation hydrocodone AdvReac Severe Verified 11/23/16 15:31 Sedation lisinopril AdvReac Cough Verified 11/23/16 15:31 Review of Systems ROS Statement: Those systems with pertinent positive or pertinent negative responses have been documented in the HPI. ROS Other: All systems not noted in ROS Statement are negative. Past Medical History Past Medical History: Asthma, Cancer, Heart Failure, COPD, CVA/TIA, Diabetes Mellitus, Eye Disorder, Fibromyalgia, GI Bleed, Hyperlipidemia, Hypertension, Myocardial Infarction ([place]), Osteoarthritis ([place]), Pneumonia Additional Past Medical History / Comment(s): anemia, possible uterine lesion/ cancer (pt has hx of uterine cancer tx with radiation), cystitis and vaginal bleeding. 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 Last Myocardial Infarction Date:: 06/12/15 History of Any Multi-Drug Resistant Organisms: None Reported Past Surgical History: Cholecystectomy, Heart Catheterization, Heart Catheterization With Stent Additional Past Surgical History / Comment(s): 06/12/15 Cardiac cath, 06/15/15 PTCA with stent mid L main, D&C X2, YRS AGO HAD A DEVICE IN FOR RADIATION TX FOR UTERINE CA THAT WAS SINCE REMOVED.EGD/COLONOSCOPY.02/18/16 heart cath 3 stents to rca Past Anesthesia/Blood Transfusion Reactions: Motion Sickness Additional Past Anesthesia/Blood Transfusion Reaction / Comment(s): CLAUSTROPHOBIA. Pt has had blood transfusion in past-no reaction to blood Date of Last Stent Placement:: 02/18/16 Past Psychological History: Anxiety, Depression Additional Psychological History / Comment(s): Pt resides with her spouse. She is basically wheel chair bound most of the time for the past several yrs. She at times ambulates with assistance or pushes her wheelchair. She feeds herself. She has a supportive family. She has a sister that helps with her bathing and her олег and spouse will help with her medication. Smoking Status: Former smoker Past Alcohol Use History: None Reported Additional Past Alcohol Use History / Comment(s): STARTED SMOKING AGE 20, STOPPED SMOKING - PPD BUT WOULD BURN HALF OUT IN TIEN TRAY Past Drug Use History: None Reported - Past Family History Father Additional Family Medical History / Comment(s): WAS A DRINKER WHEN YOUNGER , LOST AN ARM IN THE SERVICE, PANCREATITIS, LIVER CANCER- from at age 57yrs. Mother Family Medical History: CVA/TIA Additional Family Medical History / Comment(s): HEART PROBLEMS, STARTED DRINKING AFTER OF HER , she of a ruptured liver at age 58 yrs. General Exam - General Exam Comments Initial Comments: Is a well-developed well-nourished awake alert oriented history female Limitations: no limitations General appearance: alert, anxious Head exam: Present: atraumatic, normocephalic, normal inspection Eye exam: Present: normal appearance, PERRL, EOMI. Absent: scleral icterus, conjunctival injection, periorbital swelling ENT exam: Present: normal exam, mucous membranes moist Neck exam: Present: normal inspection. Absent: tenderness, meningismus, lymphadenopathy Respiratory exam: Present: decreased breath sounds Cardiovascular Exam: Present: regular rate, normal rhythm, normal heart sounds. Absent: systolic murmur, diastolic murmur, rubs, gallop, clicks GI/Abdominal exam: Present: soft, normal bowel sounds. Absent: distended, tenderness, guarding, rebound, rigid Extremities exam: Present: normal inspection, full ROM, normal capillary refill. Absent: tenderness, pedal edema, joint swelling, calf tenderness Back exam: Present: normal inspection Neurological exam: Present: alert, oriented X3, CN II-XII intact Psychiatric exam: Present: normal affect, normal mood Skin exam: Present: warm, dry, intact, normal color. Absent: rash Course Vital Signs 11/23/16 11/23/16 11/23/16 13:06 13:46 13:54 Temperature 99.2 F Pulse Rate 71 69 70 Respiratory 20 Rate Blood Pressure 165/70 O2 Sat by Pulse 92 L Oximetry 11/23/16 11/23/16 14:08 15:19 Temperature 98.2 F Pulse Rate 70 Respiratory 18 18 Rate Blood Pressure 149/65 O2 Sat by Pulse 95 Oximetry Medical Decision Making - Medical Decision Making I did discuss findings with the patient and her . Patient will be admitted there is elevation of the troponin. Patient does have elevated creatinine and BUN. Patient will be ruled out. Hemoglobin currently 7.4 at this point a transfusion is not indicated. - Lab Data Result diagrams: 11/23/16 13:45 11/23/16 13:45 Lab Results 11/23/16 11/23/16 11/23/16 Range/Units 13:45 13:45 13:45 WBC 6.0 (3.8-10.6) k/uL RBC 2.95 L (3.80-5.40) m/uL Hgb 7.4 L (11.4-16.0) gm/dL Hct 23.5 L (34.0-46.0) % MCV 79.6 L D (80.0-100.0) fL MCH 25.1 (25.0-35.0) pg MCHC 31.5 (31.0-37.0) g/dL RDW 15.7 H (11.5-15.5) % Plt Count 156 (150-450) k/uL Neutrophils % 74 % Lymphocytes % 13 % Monocytes % 5 % Eosinophils % 6 % Basophils % 0 % Neutrophils # 4.5 (1.3-7.7) k/uL Lymphocytes # 0.8 L (1.0-4.8) k/uL Monocytes # 0.3 (0-1.0) k/uL Eosinophils # 0.4 (0-0.7) k/uL Basophils # 0.0 (0-0.2) k/uL Hypochromasia Marked Poikilocytosis Marked PT (9.0-12.0) sec INR (<1.1) APTT (22.0-30.0) sec D-Dimer (<0.60) mg/L FEU Sodium 136 L (137-145) mmol/L Potassium 4.5 (3.5-5.1) mmol/L Chloride 102 (98-107) mmol/L Carbon Dioxide 26 (22-30) mmol/L Anion Gap 8 mmol/L BUN 47 H (7-17) mg/dL Creatinine 1.61 H (0.52-1.04) mg/dL Est GFR (MDRD) Af Amer 39 (>60 ml/min/1.73 sqM) Est GFR (MDRD) Non-Af 32 (>60 ml/min/1.73 sqM) Glucose 397 H (74-99) mg/dL Calcium 8.8 (8.4-10.2) mg/dL Magnesium 1.8 (1.6-2.3) mg/dL Total Bilirubin 0.7 (0.2-1.3) mg/dL AST 11 L (14-36) U/L ALT 34 (9-52) U/L Alkaline Phosphatase 136 H (38-126) U/L Total Creatine Kinase 66 (30-135) U/L CK-MB (CK-2) 1.1 (0.0-2.4) ng/mL CK-MB (CK-2) Rel Index 1.7 Troponin I 0.082 H* (0.000-0.034) ng/mL NT-Pro-B Natriuret Pep pg/mL Total Protein 6.1 L (6.3-8.2) g/dL Albumin 3.3 L (3.5-5.0) g/dL 11/23/16 11/23/16 Range/Units 13:45 13:45 WBC (3.8-10.6) k/uL RBC (3.80-5.40) m/uL Hgb (11.4-16.0) gm/dL Hct (34.0-46.0) % MCV (80.0-100.0) fL MCH (25.0-35.0) pg MCHC (31.0-37.0) g/dL RDW (11.5-15.5) % Plt Count (150-450) k/uL Neutrophils % % Lymphocytes % % Monocytes % % Eosinophils % % Basophils % % Neutrophils # (1.3-7.7) k/uL Lymphocytes # (1.0-4.8) k/uL Monocytes # (0-1.0) k/uL Eosinophils # (0-0.7) k/uL Basophils # (0-0.2) k/uL Hypochromasia Poikilocytosis PT 10.5 (9.0-12.0) sec INR 1.0 (<1.1) APTT 23.5 (22.0-30.0) sec D-Dimer 0.39 (<0.60) mg/L FEU Sodium (137-145) mmol/L Potassium (3.5-5.1) mmol/L Chloride (98-107) mmol/L Carbon Dioxide (22-30) mmol/L Anion Gap mmol/L BUN (7-17) mg/dL Creatinine (0.52-1.04) mg/dL Est GFR (MDRD) Af Amer (>60 ml/min/1.73 sqM) Est GFR (MDRD) Non-Af (>60 ml/min/1.73 sqM) Glucose (74-99) mg/dL Calcium (8.4-10.2) mg/dL Magnesium (1.6-2.3) mg/dL Total Bilirubin (0.2-1.3) mg/dL AST (14-36) U/L ALT (9-52) U/L Alkaline Phosphatase (38-126) U/L Total Creatine Kinase (30-135) U/L CK-MB (CK-2) (0.0-2.4) ng/mL CK-MB (CK-2) Rel Index Troponin I (0.000-0.034) ng/mL NT-Pro-B Natriuret Pep 1390 pg/mL Total Protein (6.3-8.2) g/dL Albumin (3.5-5.0) g/dL - EKG Data -: EKG Interpreted by Me EKG shows normal: sinus rhythm (EKG shows normal sinus rhythm with a first- degree AV block rate was 71. Interval 240 QRS of 84 daily for QTC of 422/[address]-T wave configuration.) - Radiology Data Radiology results: report reviewed (I did review the imaging and reports no acute findings.), image reviewed Disposition Clinical Impression: Acute exacerbation of chronic obstructive airways disease, Elevated troponin, Renal insufficiency, Chronic anemia Disposition: ADMITTED IP TO THIS HOSP Condition: Stable Referrals: Tyler Hermosillo DO [Primary Care Provider] - 1-2 days
[2016-11-23 14:45] LABS: Creatine Kinase MB 1.1 ng/mL (0.0-2.4)
[2016-11-23 14:49] LABS: Troponin I 0.082 ng/mL (0.000-0.034)
[2016-11-23] MEDS ORDERED: NITROGLYCERIN SL TABS 0.4 MG TAB SUBLINGUAL PRN (15:37)
[2016-11-23 15:39] LABS: Glucose,Whole Blood 391 mg/dL (75-99)
[2016-11-23] MEDS ORDERED: LORazepam 0.5 MG TAB PO PRN (15:41)
[2016-11-23] MEDS ORDERED: NYSTATIN 100,000 UNIT/GM POWD 15 GM TOPICAL PRN (15:41)
[2016-11-23] MEDS ORDERED: MECLIZINE 12.5 MG TAB PO PRN (15:41)
[2016-11-23] MEDS ORDERED: ALBUTEROL NEBULIZED 2.5 MG/3 ML INHALATION PRN (15:41)
[2016-11-23] MEDS ORDERED: NALOXONE 0.4 MG/ML 1 ML VIAL IV PRN (15:43)
[2016-11-23] MEDS: INSULIN LISPRO (humaLOG) 300 UNIT/3 ML VIAL SQ SCH ×2 (15:51→21:21)
[2016-11-23] MEDS: CARVEDILOL 12.5 MG TAB PO SCH (18:34)
[2016-11-23] MEDS: SODIUM CHLORIDE 0.9% 1,000 ML IV SCH (18:35)
[2016-11-23 19:02] VITALS: BMI 42.5
[2016-11-23 19:39] LABS: Hemoglobin A1C 8.2 % (4.2-6.1)
[2016-11-23 21:04] LABS: Creatine Kinase MB 1.1 ng/mL (0.0-2.4)
[2016-11-23 21:06] LABS: Troponin I 0.076 ng/mL (0.000-0.034)
[2016-11-23 21:09] LABS: Glucose,Whole Blood 310 mg/dL (75-99)
[2016-11-23] MEDS: ATORVASTATIN 80 MG TAB PO SCH (21:21)
[2016-11-23] MEDS: INSULIN GLARGINE 100 UNIT/ML 10 ML VIAL SQ SCH (21:25)
[2016-11-23] MEDS ORDERED: ONDANSETRON 4 MG/2 ML VIAL IVP PRN (22:50)
[2016-11-24 02:41] LABS: Cholesterol 103 mg/dL (<200); HDL Cholesterol 21 mg/dL (40-60); Triglycerides 273 mg/dL (<150)
[2016-11-24 03:16] LABS: Creatine Kinase MB 1.1 ng/mL (0.0-2.4)
[2016-11-24 03:38] LABS: Troponin I 0.056 ng/mL (0.000-0.034)
--- NOTE | 2016-11-24 06:05 | HP ---
DATE OF ADMISSION: 11/23/2016 PRESENTING COMPLAINT: Not feeling well. HISTORY OF PRESENTING COMPLAINT: This is a very pleasant 66-year-old patient without extensive medical history. Patient's chronic stable medical conditions include congestive heart failure from EF 55%, hypertension, right-sided weakness from old stroke diabetes mellitus type 2, obesity, hyperlipidemia, fibromyalgia, osteoarthritis, chronic urinary stress incontinence, COPD, chronic gastric and duodenal ectasia and history of argon plasma coagulation. Patient also being worked up for intermittent vaginal bleeding, recurrent anemia. Patient presents with feeling tired and rundown, dizzy, episodes of nausea. In the ER, the troponin was done and came back at 0.08. Patient was admitted with unstable angina. Denies any obvious precordial pain. Patient is due to get her surgery for menorrhagia shortly. REVIEW OF SYSTEMS: CONSTITUTIONAL: Tired. HEENT: None. RESPIRATORY: None. CARDIOVASCULAR: No precordial pain. GASTROINTESTINAL: None. GENITOURINARY: Recurrent vaginal bleeding. MUSCULOSKELETAL: Pain in the joints. DERMATOLOGICAL: None. HEMATOLOGIC: None. LYMPHATICS: None. PSYCHIATRY: None. NEUROLOGICAL: Weakness on the right side. 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 PAST SURGICAL HISTORY: Cardiac cath with stent, uterine cancer, cardiac cath was May in 2014, D&C, EGD, colonoscopy. SOCIAL HISTORY: . Uses a wheelchair to get about. Stop smoking in May 2015, smoked 4 packs a day for 40 years. Family history of cancer and pancreatitis. Allergies to HYDRALAZINE, CODEINE, HYDROCODONE, LISINOPRIL. On examination, temperature 96.5, pulse 72, respirations 18, blood pressure 161/70, pulse 97% on room air. GENERAL APPEARANCE: Well built, BMI of 42.6, sitting up, not in distress. EYES: Pupils equal. Conjunctivae pale. HEENT: Oral cavity normal. NECK: Short thick. JVD unable to assess. Mass not palpable. RESPIRATORY: Effort normal. LUNGS: Slightly decreased breath sounds. CARDIOVASCULAR: First and second sounds normal. Mild edema. ABDOMEN: Soft, nontender. Liver and spleen not palpable. LYMPHATIC: No lymph nodes palpable in the neck or axillae. PSYCHIATRY: Alert and oriented x3. Mood and affect normal. NEUROLOGICAL: Decreased power in the right arm. INVESTIGATIONS: White count 6, hemoglobin 7.4. Potassium 4.5, BUN 47, creatinine 1.61. Patient's creatinine was 1.5 done on 10/05/16. Patient's troponin 0.082. It was less than 0.012 on 10/06/16. ASSESSMENT: 1. Possible unstable angina equivalent in a patient with known coronary artery disease. 2. Chronic obstructive pulmonary disease in an ex-smoker. 3. Recurrent vaginal bleeding for outpatient pending surgery. 4. Chronic diverticulosis. 5. 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 6. Chronic congestive heart failure from diastolic dysfunction; ejection fraction 55%, from underlying coronary disease. 7. Essential hypertension. 8. Right arm weakness from old stroke. 9. Diabetes mellitus type 2 chronically on insulin. 10. Obesity, body mass index of 45/ body mass index over 42. 11. Coronary artery disease with stent to the LAD and right coronary artery disease in January 2016. 12. Hyperlipidemia. 13. Fibromyalgia. 14. Primary osteoarthritis multiple joints, bilaterally. 15. Chronic urinary stress incontinence. 16. Depression, not otherwise specified. PLAN: Home medications are resumed. Cardiology was consulted. Serial cardiac enzymes are in place. Accu-Cheks will be followed. Care was discussed with the patient in detail.
[2016-11-24 06:11] LABS: Glucose,Whole Blood 306 mg/dL (75-99)
[2016-11-24] MEDS: INSULIN LISPRO (humaLOG) 300 UNIT/3 ML VIAL SQ SCH ×5 (06:51→20:26)
[2016-11-24] MEDS: CARVEDILOL 12.5 MG TAB PO SCH ×2 (06:51→18:12)
[2016-11-24] MEDS: ALLOPURINOL 100 MG TAB PO SCH (08:56)
[2016-11-24] MEDS: FUROSEMIDE 40 MG TAB PO SCH ×2 (08:57→18:12)
[2016-11-24] MEDS: amLODIPine 10 MG TAB PO SCH (08:57)
[2016-11-24] MEDS: ASPIRIN 325 MG TAB PO SCH (08:57)
[2016-11-24] MEDS: PANTOPRAZOLE 40 MG TABLET PO SCH (08:57)
[2016-11-24] MEDS ORDERED: ASPIRIN 81 MG CHEW PO SCH (09:00)
[2016-11-24] MEDS: INSULIN GLARGINE 100 UNIT/ML 10 ML VIAL SQ SCH ×2 (09:04→20:26)
[2016-11-24] MEDS ORDERED: REGADENOSON 0.4 MG/5 ML SYRINGE IV ONE ×2 (10:21→11:22)
[2016-11-24] MEDS ORDERED: AMINOPHYLLINE 500 MG/20 ML VIAL IV PRN ×2 (10:21→11:22)
--- NOTE | 2016-11-24 10:42 | CONS ---
DATE OF CONSULTATION: CHIEF COMPLAINT: Shortness of breath and not feeling well. This is a 66-year-old lady with history of right-sided weakness, diabetes, hypertension, dyslipidemia, morbid obesity, COPD, chronic uterine bleeding, coronary artery disease, status post prior angioplasty who comes in complaining of shortness of breath and her troponin is slightly elevated. Her peak troponin was at 0.082, 0.076 and 0.056. In fact, it actually already kept coming down by the time she came. Her creatinine is elevated at 1.6, which could be the reason as to why the tropes are elevated. She is severely anemic and some of her symptoms are probably related to it. Since the patient never had a stress test since the angioplasty I advised her to undergo a Lexiscan today and if she has ischemia, I will ask Dr. Dacosta to perform a cardiac catheterization on her. Patient needs uterine surgery over the next several weeks and will probably have to clear her for surgery in any event. Please try to keep the hemoglobin about 8, which I think would help with her symptoms. Past medical history is significant for coronary artery disease, status post angioplasty, hypertension, dyslipidemia, COPD, morbid obesity, type 2 diabetes and right-sided weakness. Medications are as charted. I reviewed them. Allergic to HYDRALAZINE, CODEINE, HYDROCODONE and LISINOPRIL. Family history is negative for premature coronary artery disease. Social history is negative for current smoking, EtOH abuse or drug abuse. REVIEW OF SYSTEMS: HEENT: Unremarkable. CONSTITUTIONAL: Significant for fatigue and tiredness. RESPIRATORY: Significant shortness of breath. CARDIOVASCULAR: Negative for chest pain. GI: Negative. GENITOURINARY: Significant for recurrent vaginal bleeding. MUSCULOSKELETAL: Significant for joint pain. SKIN: Negative. HEMATOLOGICAL: Negative. PSYCH: Negative. NEUROLOGICAL: Negative. LYMPHATICS: Negative. On exam, patient is comfortable at rest. Afebrile. Vital signs are stable. There is no jugular venous distention. Carotid upstroke is normal. There is no bruit. Chest exam reveals good air entry bilaterally. Heart exam reveals first and second heart sounds. No gallop. No murmur, no rub. Abdomen is soft, nontender. Exam of extremities did not reveal any edema. Peripheral pulses are palpable. EKG shows sinus rhythm with nonspecific ST-T wave changes similar to the EKG that she had at last admission. ASSESSMENT: 1. Mild troponin elevation probably related to the renal failure. 2. Chronic renal insufficiency. 3. Shortness of breath, probably secondary to anemia. 4. Coronary artery disease, status post angioplasty. PLAN: I am going to obtain a Lexiscan on her to rule out ischemia.
[2016-11-24 12:08] LABS: Glucose,Whole Blood 355 mg/dL (75-99)
[2016-11-24] MEDS ORDERED: INSULIN LISPRO (humaLOG) 300 UNIT/3 ML VIAL SQ ONE (12:46)
--- NOTE | 2016-11-24 13:00 | ECHOF ---
Referral Reason:abn trop MEASUREMENTS -------- HEIGHT: 154.9 cm WEIGHT: 102.1 kg BP: 142/65 RVIDd: 2.7 cm (< 3.3) IVSd: 1.5 cm (0.6 - 1.1) LVIDd: 4.4 cm (3.9 - 5.3) LVPWd: 1.5 cm (0.6 - 1.1) IVSs: 1.8 cm LVIDs: 2.5 cm LVPWs: 1.9 cm LA Diam: 3.4 cm (2.7 - 3.8) Ao Diam: 2.8 cm (2.0 - 3.7) AV Cusp: 1.4 cm (1.5 - 2.6) MV EXCURSION: 11.106 mm (> 18.000) MV EF SLOPE: 32 mm/s (70 - 150) EPSS: 1.1 cm MV E Felipe: 0.91 m/s MV DecT: 173 ms MV A Felipe: 1.02 m/s MV E/A Ratio: 0.89 FINDINGS -------- Sinus rhythm. This was a technically difficult study with suboptimal views. The left ventricular size is normal. There is moderate concentric left ventricular hypertrophy. Overall left ventricular systolic function is normal with, an EF between 55 - 60 %. The right ventricle is normal in size. The left atrial size is normal. The right atrium was not well visualized. 1.5mg of Definity was utilized for enhancement of images There is mild aortic valve sclerosis. Mild mitral annular calcification present. The tricuspid valve was not well visualized. The pulmonic valve was not well visualized. The aortic root size is normal. The inferior vena cava is mildly dilated. There is a small pericardial effusion located near the left ventricle. CONCLUSIONS -------- 1. Sinus rhythm. 2. There is mild aortic valve sclerosis. 3. Mild mitral annular calcification present. 4. The tricuspid valve was not well visualized. 5. The pulmonic valve was not well visualized. 6. The aortic root size is normal. 7. The inferior vena cava is mildly dilated. 8. There is a small pericardial effusion located near the left ventricle. 9. This was a technically difficult study with suboptimal views. 10. The left ventricular size is normal. 11. There is moderate concentric left ventricular hypertrophy. 12. Overall left ventricular systolic function is normal with, an EF between 55 - 60 %. 13. The right ventricle is normal in size. 14. The left atrial size is normal. 15. The right atrium was not well visualized. 16. 1.5mg of Definity was utilized for enhancement of images SEMICONDUCTOR ASSEMBLER: Angelica George RDCS
[2016-11-24 16:37] LABS: Glucose,Whole Blood 221 mg/dL (75-99)
[2016-11-24] MEDS: SODIUM CHLORIDE 0.9% 1,000 ML IV SCH (18:12)
[2016-11-24] MEDS: ATORVASTATIN 80 MG TAB PO SCH (20:25)
--- NOTE | 2016-11-24 20:52 | PN ---
DATE OF SERVICE: 11/24/2016 PRESENTING COMPLAINT: Tired. INTERVAL HISTORY: Patient with multiple medical problems presented with some nausea and dizziness, tired; found to have a troponin leak. Patient is due for a Lexiscan stress test today. Overall feels much better. Daughter is at the bedside. Review of systems done for constitutional, cardiovascular, GI, pulmonary; relevant findings as above. Current medications are reviewed. On examination, temperature 98.1, pulse 68, respiration 18, blood pressure 158/67, pulse ox 92% on room air. GENERAL APPEARANCE: Sitting up, comfortable. EYES: Pupils normal. Conjunctivae normal. NECK: JVD not raised. Mass not palpable. RESPIRATORY: Effort ( ) decreased breath sounds. PSYCHIATRY: Alert and oriented x3. Mood and affect normal. NEUROLOGICAL: Power in the right arm is decreased, 2/5. INVESTIGATIONS: Troponin 0.076, 0.056. LDL is 27. Accu-Cheks noted; running a bit high. ASSESSMENT: 1. Possible unstable angina equivalent in a patient with known coronary artery disease, awaiting a stress test. 2. Chronic obstructive pulmonary disease in an ex-smoker. 3. Recurrent vaginal bleeding, for outpatient pending surgery. 4. Chronic diverticulosis. 5. Chronic gastric and duodenal ectasia and history of argon plasma coagulation. 6. Chronic congestive heart failure from diastolic dysfunction; ejection fraction 55%, with underlying coronary artery disease. 7. Essential hypertension. 8. Right arm weakness from old stroke. 9. Diabetes mellitus, type 2, chronically on insulin. 10. Obesity; body mass index of over 42. 11. Coronary artery disease with stent to the left anterior descending coronary artery and right coronary artery in January 2016. 12. Hyperlipidemia. 13. Fibromyalgia. 14. Primary osteoarthritis of multiple joints bilaterally. 15. Chronic urinary stress incontinence. 16. Depression not otherwise specified. PLAN: Continue current medication and treatment plan. Patient's blood pressure is running well. No need to transfuse the patient. Awaiting a stress test. Will repeat CBC in the morning. Patient's home dose of insulin was started earlier today. Talked to the nurse. Will follow.
[2016-11-24 21:26] LABS: Glucose,Whole Blood 182 mg/dL (75-99)
[2016-11-25 06:23] LABS: Glucose,Whole Blood 226 mg/dL (75-99)
[2016-11-25] MEDS: INSULIN LISPRO (humaLOG) 300 UNIT/3 ML VIAL SQ SCH ×6 (06:45→18:03)
[2016-11-25 07:03] LABS: Anisocytosis Slight; Basophils % (A) 0 %; CH 24.8; CHCM 31.3; Eosinophils # (A) 0.4 k/uL (0-0.7); Eosinophils % (A) 6 %; HCT 21.6 % (34.0-46.0); Hypochromasia Marked; Luc # (Auto) 0.16; Luc % (Auto) 3; Lymphocytes # (A) 0.8 k/uL (1.0-4.8); Lymphocytes % (A) 14 %; MCH 24.9 pg (25.0-35.0); MCHC 31.3 g/dL (31.0-37.0); MCV 79.4 fL (80.0-100.0); Mean Platelet Volume 7.1; Monocytes # (A) 0.3 k/uL (0-1.0); Monocytes % (A) 5 %; Neutrophils # (A) 4.4 k/uL (1.3-7.7); Neutrophils % (A) 72 %; Poikilocytosis Marked; RBC 2.72 m/uL (3.80-5.40); WBC 6.1 k/uL (3.8-10.6); WBC (Perox) 6.28
[2016-11-25 07:31] LABS: HGB 6.8 gm/dL (11.4-16.0)
[2016-11-25] MEDS ORDERED: REGADENOSON 0.4 MG/5 ML SYRINGE IV ONE (08:00)
--- NOTE | 2016-11-25 10:26 | CDI ---
In responding to this query, please exercise your independent professional judgment. The [facility] Coding Staff and Clinical Documentation Specialists appreciate your assistance in clarifying documentation, maintaining compliance with coding guidelines, accurately documenting patients condition and capturing severity of illness. The fact that a question is asked does not imply that any particular answer is desired or expected. Communication forms are a method of clarifying documentation and are not made part of the Legal Health Record. Thank you in advance for your clarification. Last Revision, April 2015 Reynaldo Salas [address] [address] Documentation Clarification Form Date: 11/25/2016 10:12:00 AM From: Deann Rowan RN, CCDS Admit Date: 11/23/2016 3:37:00 PM Patient Name: Rossi Singh Visit Number: [id number] Dr. Amadeo Aguila Patient presents with a BUN/CR/GFR of: 47/1.61/32 10/19/16 Patients baseline BUN/CR/GFR: 57/1.72/30 History/Risk Factors: anemia, unstable angina, CAD, chronic diastolic CHF Clinical Indicators: 11/23 EC Note: "renal insuffiency" 11/24 Cardiology Consult: "Chronic renal insuffiency" Treatment: Consults: cardiology IVF: 0.9% NS @ 20 cc/hr In order to capture the severity of condition, please clarify if the condition signifies: Acute renal failure Please specify (if known): Cortical, Medullary, or Tubular Necrosis? Acute kidney injury Acute on chronic renal failure Chronic renal failure, please stage Chronic kidney disease (CKD) and please stage Stage 1 GFR >90 Stage 2 GFR 60-89 Stage 3 GFR 30-59 Stage 4 GFR 15-29 Stage 5 GFR <15 ESRD Unable to determine Other, specify Please document in your progress notes and discharge summary in order to capture severity of illness and risk of mortality. Include clinical findings that support your diagnosis. FYI: Press F11 to launch patient chart. Place X here if this finding has no clinical significance, is not applicable or if you are not able to provide any additional documentation. [place]
--- NOTE | 2016-11-25 11:16 | NM ---
EXAMINATION TYPE: NM stress Lexiscan cardiolite DATE OF EXAM: 11/25/2016 COMPARISON: NONE HISTORY: Chest pain TECHNIQUE: After the intravenous administration of 10.8 mCi Tc 99m Sestamibi - Cardiolite resting SP ECT images acquired 60 minutes post injection. The patient received 0.4mg Lexiscan, 26.3 mCi Tc 99m Sestamibi - Stress images obtained [address] injection FINDINGS: There is a fixed defect along the inferolateral wall and apex of the left ventricle. There is no convincing inducible ischemic change. There is mild, global hypokinesia. Ejection fracture is c alculated at 55% at stress and 30% rest. IMPRESSION: 1. EVIDENCE OF A PREVIOUS INFARCT INVOLVING THE INFERIOR LATERAL WALL OF THE LEFT VENTRICLE AND THE A PEX. 2. NO CONVINCING EVIDENCE OF ISCHEMIC CHANGE AT THIS TIME. 3. GLOBAL HYPOKINESIA.
--- NOTE | 2016-11-25 11:30 | EST ---
DATE OF SERVICE: 11/25/2016 AGE: 66Y SEX: F HT: 61" WT: 225 lbs. Lexiscan Cardiolite Stress Test *Heart Rate Blood Pressure *Rest: 75 Rest: 174/52 * *Max. Achieved: 83 Maximum BP: 174/52 85% PMHR: 132 100% PMHR: 155 *METS: - INDICATIONS: Chest pain. MEDICATIONS: - STRESS DATA: Pretesting physical examination showed the heart rate of 75, pressure is 174/52 mmHg. Baseline EKG showed sinus rhythm; 0.4 mg Lexiscan was given to the patient over 15 seconds per protocol. Max heart rate was 83 beats per minute and maximum blood pressure was 174/52 mmHg. Clinically, the patient developed some chest discomfort. The EKG showed about [address] segment changes. CONCLUSION: 1. Nondiagnostic electrocardiogram stress response to Lexiscan. 2. Please follow up on the Cardiolite portion on a separate report from the Radiology Department.
[2016-11-25 12:14] LABS: Glucose,Whole Blood 280 mg/dL (75-99)
[2016-11-25] MEDS: CARVEDILOL 12.5 MG TAB PO SCH ×2 (12:43→18:02)
[2016-11-25] MEDS: ALLOPURINOL 100 MG TAB PO SCH (12:43)
[2016-11-25] MEDS: ASPIRIN 325 MG TAB PO SCH (12:44)
[2016-11-25] MEDS: amLODIPine 10 MG TAB PO SCH (12:44)
[2016-11-25] MEDS: FUROSEMIDE 40 MG TAB PO SCH ×2 (12:44→18:02)
[2016-11-25] MEDS: PANTOPRAZOLE 40 MG TABLET PO SCH (12:45)
[2016-11-25] MEDS: INSULIN GLARGINE 100 UNIT/ML 10 ML VIAL SQ SCH (13:41)
--- NOTE | 2016-11-25 15:06 | P.PN ---
Subjective This is a pleasant 66-year-old female with a history of right-sided weakness, diabetes, hypertension, dyslipidemia, morbid obesity, COPD, chronic uterine bleeding, coronary artery disease, status post prior angioplasty. He presented to the emergency department with complaints of shortness of breath and overall not feeling well. Her troponin was slightly elevated at 0.082, 0.076 and 0.056. Her creatinine was also found to be elevated at 1.6 which could account for elevated troponin. Patient was also found to be severely anemic. Patient underwent Lexiscan Cardiolite today that showed an intensive a previous infarct involving the inferior lateral wall with no convincing evidence of ischemic change at this time. Patient is awaiting transfusion of packed red blood cells. Objective - Vital Signs Vital signs: Vital Signs Temp 99.4 F 11/25/16 14:15 Pulse 75 11/25/16 14:15 Resp 16 11/25/16 14:15 BP 140/56 11/25/16 14:15 Pulse Ox 97 11/25/16 14:15 Intake & Output 11/24/16 11/25/16 11/25/16 18:59 06:59 18:59 Intake Total 200 0 Output Total 700 2 300 Balance -500 -2 -300 Weight 101.4 kg Intake: Oral 200 Blood Product 0 Rc As-1 Unit 0 [id number] Output: Urine 700 300 Urine/Stool Mix 2 Other: Voiding Method Bedside Commode Bedside Commode Bedside Commode # Voids 3 - Exam PHYSICAL EXAMINATION: HEENT: Head is atraumatic, normocephalic. Pupils equal, round. Neck is supple. There is no elevated jugular venous pressure. HEART EXAMINATION: Heart sounds regular, S1 and S2 normal. No murmur or gallop heard. CHEST EXAMINATION: Lungs are clear to auscultation and precussion. No chest wall tenderness is noted on palpation or with deep breathing. ABDOMEN: Soft, nontender. Bowel sounds are heard. No organomegaly noted. EXTREMITIES: 2+ peripheral pulses with no evidence of peripheral edema and no calf tenderness noted. NEUROLOGIC patient is awake, alert and oriented x3. . - Labs CBC & Chem 7: 11/25/16 06:03 11/23/16 13:45 Labs: Abnormal Lab Results - Last 24 Hours (Table) 11/23/16 11/24/16 11/24/16 Range/Units 14:05 16:35 20:18 RBC (3.80-5.40) m/uL Hgb (11.4-16.0) gm/dL Hct (34.0-46.0) % MCV (80.0-100.0) fL MCH (25.0-35.0) pg RDW (11.5-15.5) % Lymphocytes # (1.0-4.8) k/uL POC Glucose (mg/dL) 221 H 182 H (75-99) mg/dL Crossmatch See Detail 11/25/16 11/25/16 11/25/16 Range/Units 06:03 06:22 11:58 RBC 2.72 L (3.80-5.40) m/uL Hgb 6.8 L* (11.4-16.0) gm/dL Hct 21.6 L (34.0-46.0) % MCV 79.4 L (80.0-100.0) fL MCH 24.9 L (25.0-35.0) pg RDW 16.0 H (11.5-15.5) % Lymphocytes # 0.8 L (1.0-4.8) k/uL POC Glucose (mg/dL) 226 H 280 H (75-99) mg/dL Crossmatch Assessment and Plan Plan: Assessment and plan #1 mild troponin elevation to renal failure, Lexiscan Cardiolite shows no evidence for inducible ischemic change #2 chronic renal insufficiency 3 shortness of breath, probably secondary to anemia #4 artery artery disease, status post angioplasty #5 hypertension #6 dyslipidemia #7 morbid obesity #8 diabetes mellitus type 2 From cardiology , patient may be discharged home following transfusion and follow-up with Dr. Dacosta as an outpatient. The above dictated assessment and findings were discussed with signing physician. The impression and plan of care have been directed as dictated. Tiff Reed, Nurse Practitioner, acting as scribe for signing physician.
[2016-11-25 17:20] LABS: Glucose,Whole Blood 214 mg/dL (75-99)
[2016-11-25 17:32] VITALS: RESP 18
[2016-11-25] MEDS: SODIUM CHLORIDE 0.9% 1,000 ML IV SCH (18:02)
[2016-11-25 18:25] VITALS: BP 155/66; PULSE 70; TEMP 98.5
--- NOTE | 2016-11-26 09:58 | DS ---
DATE OF ADMISSION: 11/23/2016 DATE OF DISCHARGE: 11/25/2016 FINAL DIAGNOSIS(ES): 1. Possible unstable angina from underlying anemia in a patient with known coronary artery disease. 2. Chronic obstructive pulmonary disease in an ex-smoker. 3. Recurrent vaginal bleeding for outpatient pending surgery. 4. Chronic diverticulosis. 5. 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 6. Chronic congestive heart failure from diastolic dysfunction; ejection fraction 35%, underlying coronary artery disease. 7. Essential hypertension. 8. Right arm weakness from old stroke. 9. Type 2 diabetes mellitus, covered on insulin. 10. Obesity, body mass index of 42. 11. Coronary artery disease with stent to LAD and right coronary artery in January 2016. 12. Hyperlipidemia. 13. Fibromyalgia. 14. Primary osteoarthritis of multiple joints bilaterally. 15. Chronic urinary stress incontinence. 16. Depression, not otherwise specified. 17. Chronic kidney disease, stage III, from diabetic nephropathy and hypertensive nephrosclerosis. HOSPITAL COURSE: This patient presents with weakness, tiredness, some nausea, could be an element of unstable angina. Patient underwent nuclear stress test that was negative. The patient did drop hemoglobin to 6.8, hence was given a unit of blood. Patient is due for surgery as an outpatient. Patient's BUN and creatinine is currently 47/1.61. CONSULTATION: Dr. Fátima Matos from cardiology. Today care discussed at length with the patient and patient's . Questions were answered. On examination right arm weakness. Power is only 2 x 4. Lungs have decreased breath sounds. CARDIOVASCULAR: First and second sounds normal. DISCHARGE MEDICATIONS: 1. Lipitor 80 mg q.h.s. 2. Protonix 40 mg a day. 3. Aspirin 81 mg a day. 4. Lantus 60 units subcu q.h.s. 5. Norvasc 10 mg daily. 6. Coreg 25 p.o. b.i.d. 7. Novolog 20 units a.c. t.i.d. 8. Lantus 10 units subcu in the morning. 9. Nitrostat 0.4 sublingual q.5 p.r.n. 10. Mycostatin powder one application topical b.i.d. 11. Lasix 40 mg b.i.d. 12. Antivert 12.5 q.6 p.r.n. 13. Allopurinol 100 mg p.o. daily. 14. Ativan 0.5 p.o. t.i.d. p.r.n. 15. Proventil 2 puffs q.4 p.r.n. Follow up with Dr. Dacosta in one week. Follow-up with Dr. Hermosillo in 2 days. BMP, CBC in a week. DC planning more than 35 minutes.
== END 2016-11-25 18:26 | disposition home or self-care (01) | DRG 812 ==
LOC: EC 12:35 → 6SEL 15:37
PROVIDERS: ADMIT Hospitalist; ATTEND Hospitalist
PROC: 30233N1 Transfusion of Nonautologous Red Blood Cells into Peripheral Vein, Percutaneous Approach (ICD-10-PCS; principal; 2016-11-25)
DX: D64.9 Anemia, unspecified (principal); E11.21 Type 2 diabetes mellitus with diabetic nephropathy; I50.32 Chronic diastolic (congestive) heart failure; I13.0 Hypertensive heart and chronic kidney disease with heart failure and stage 1 through stage 4 chronic kidney disease, or unspecified chronic kidney disease; I25.110 Atherosclerotic heart disease of native coronary artery with unstable angina pectoris; Z68.42 Body mass index [BMI] 45.0-49.9, adult; I69.351 Hemiplegia and hemiparesis following cerebral infarction affecting right dominant side; E66.01 Morbid (severe) obesity due to excess calories; J44.9 Chronic obstructive pulmonary disease, unspecified; N18.3 Chronic kidney disease, stage 3 (moderate); N93.9 Abnormal uterine and vaginal bleeding, unspecified; E11.22 Type 2 diabetes mellitus with diabetic chronic kidney disease; E78.5 Hyperlipidemia, unspecified; M79.7 Fibromyalgia; M19.91 Primary osteoarthritis, unspecified site; N39.3 Stress incontinence (female) (male); F32.9 Major depressive disorder, single episode, unspecified; Z85.42 Personal history of malignant neoplasm of other parts of uterus; Z87.891 Personal history of nicotine dependence; Z95.5 Presence of coronary angioplasty implant and graft; Z79.82 Long term (current) use of aspirin; Z79.4 Long term (current) use of insulin; Z79.899 Other long term (current) drug therapy
CPT/HCPCS: 36415; 71020; 78452; 80053; 80061; 82550; 82553; 83036; 83735; 83880; 84484; 85025; 85379; 85610; 85730; 86850; 86870; 86880; 86900; 86901; 86902; 86920; 93005; 93017; 93306; 94640; 94760; 99285

== ENCOUNTER 2016-11-26 17:27 | Inpatient (IN) | payer MEDICARE ==
[2016-11-26] MEDS ORDERED: IPRATROPIUM-ALBUTEROL 3 ML NEB INHALATION STA (17:51)
--- NOTE | 2016-11-26 17:54 | ED ---
SOB HPI - General Chief Complaint: Shortness of Breath Stated Complaint: LISSETTE Time Seen by Provider: 11/26/16 17:40 Source: patient, RN notes reviewed Mode of arrival: wheelchair Limitations: no limitations - History of Present Illness Initial Comments: This is a 66-year-old female who was just sent home yesterday after having a cardiac evaluation who states she started developing shortness of breath last evening and hit her saturation dropped as low as 70-74%. She states she did not sleep very well she was been dyspneic all day. She denies any fevers chills sweats or chest pain. MD Complaint: shortness of breath - Related Data Home Medications Medication Instructions Recorded Confirmed Insulin Glargine [Lantus] 60 unit SQ HS 01/15/16 11/26/16 Carvedilol [Coreg] 25 mg PO BID 08/07/16 11/26/16 Insulin Aspart [NovoLOG] 20 unit SQ AC-TID 08/07/16 11/26/16 Insulin Glargine [Lantus] 10 unit SQ QAM 08/07/16 11/26/16 Nitroglycerin Sl Tabs [Nitrostat] 0.4 mg SUBLINGUAL Q5M PRN 08/07/16 11/26/16 Nystatin 100,000 Unit/gm Powd 1 applic TOPICAL BID PRN 08/26/16 11/26/16 [Mycostatin Powder] Furosemide [Lasix] 40 mg PO BID 09/06/16 11/26/16 Meclizine [Antivert] 12.5 mg PO Q6H PRN 10/19/16 11/26/16 Allopurinol [Zyloprim] 150 mg PO DAILY 11/23/16 11/26/16 LORazepam [Ativan] 0.5 mg PO TID PRN 11/23/16 11/26/16 Ergocalciferol [Vitamin D2] 50,000 unit PO FR 11/26/16 11/26/16 Previous Rx's Medication Instructions Recorded Atorvastatin [Lipitor] 80 mg PO HS #30 tab 06/16/15 Pantoprazole Sodium [Protonix] 40 mg PO DAILY #30 tablet. 06/21/15 Aspirin 81 mg PO DAILY chew 08/28/15 amLODIPine [Norvasc] 10 mg PO DAILY #30 tab 07/20/16 Albuterol Sulfate [Proventil Hfa] 2 puff INHALATION RT-Q4H PRN #0 11/25/16 Allergies Allergy/AdvReac Type Severity Reaction Status Date / Time hydralazine Allergy Severe Anaphylaxis Verified 11/26/16 17:37 codeine AdvReac Severe Verified 11/26/16 17:37 Sedation hydrocodone AdvReac Severe Verified 11/26/16 17:37 Sedation lisinopril AdvReac Cough Verified 11/26/16 17:37 Review of Systems ROS Statement: Those systems with pertinent positive or pertinent negative responses have been documented in the HPI. ROS Other: All systems not noted in ROS Statement are negative. Past Medical History Past Medical History: Asthma, Cancer, Heart Failure, COPD, CVA/TIA, Diabetes Mellitus, Eye Disorder, Fibromyalgia, GI Bleed, Hyperlipidemia, Hypertension, Myocardial Infarction ([place]), Osteoarthritis (OA), Pneumonia Additional Past Medical History / Comment(s): anemia, possible uterine lesion/ cancer (pt has hx of uterine cancer tx with radiation), cystitis and vaginal bleeding. 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 Last Myocardial Infarction Date:: 06/12/15 History of Any Multi-Drug Resistant Organisms: None Reported Past Surgical History: Cholecystectomy, Heart Catheterization, Heart Catheterization With Stent Additional Past Surgical History / Comment(s): 06/12/15 Cardiac cath, 06/15/15 PTCA with stent mid L main, D&C X2, YRS AGO HAD A DEVICE IN FOR RADIATION TX FOR UTERINE CA THAT WAS SINCE REMOVED.EGD/COLONOSCOPY.02/18/16 heart cath 3 stents to rca Past Anesthesia/Blood Transfusion Reactions: Motion Sickness Additional Past Anesthesia/Blood Transfusion Reaction / Comment(s): CLAUSTROPHOBIA. Pt has had blood transfusion in past-no reaction to blood Date of Last Stent Placement:: 02/18/16 Past Psychological History: Anxiety, Depression Additional Psychological History / Comment(s): Pt resides with her spouse. She is basically wheel chair bound most of the time for the past several yrs. She at times ambulates with assistance or pushes her wheelchair. She feeds herself. She has a supportive family. She has a sister that helps with her bathing and her олег and spouse will help with her medication. Smoking Status: Former smoker Past Alcohol Use History: None Reported Additional Past Alcohol Use History / Comment(s): STARTED SMOKING AGE 20, STOPPED SMOKING PPD BUT WOULD BURN HALF OUT IN TIEN TRAY Past Drug Use History: None Reported - Past Family History Father Additional Family Medical History / Comment(s): WAS A DRINKER WHEN YOUNGER , LOST AN ARM IN THE SERVICE, PANCREATITIS, LIVER CANCER- from at age 57yrs. Mother Family Medical History: CVA/TIA Additional Family Medical History / Comment(s): HEART PROBLEMS, STARTED DRINKING AFTER OF HER , she of a ruptured liver at age 58 yrs. General Exam - General Exam Comments Initial Comments: This is a well-developed well-nourished awake alert oriented 3 Limitations: no limitations General appearance: alert, anxious, in distress Head exam: Present: atraumatic, normocephalic, normal inspection Eye exam: Present: normal appearance, PERRL, EOMI. Absent: scleral icterus, conjunctival injection, periorbital swelling ENT exam: Present: normal exam, mucous membranes moist Neck exam: Present: normal inspection. Absent: tenderness, meningismus, lymphadenopathy Respiratory exam: Present: accessory muscle use, decreased breath sounds. Absent: respiratory distress, wheezes, rales, rhonchi, stridor Cardiovascular Exam: Present: regular rate, normal rhythm, normal heart sounds. Absent: systolic murmur, diastolic murmur, rubs, gallop, clicks GI/Abdominal exam: Present: soft, normal bowel sounds. Absent: distended, tenderness, guarding, rebound, rigid Extremities exam: Present: normal inspection, full ROM, normal capillary refill. Absent: tenderness, pedal edema, joint swelling, calf tenderness Back exam: Present: normal inspection Neurological exam: Present: alert, oriented X3, CN II-XII intact Psychiatric exam: Present: normal affect, normal mood Skin exam: Present: warm, dry, intact, normal color. Absent: rash Course Vital Signs 11/26/16 11/26/16 11/26/16 17:34 18:01 18:13 Temperature 99.5 F Pulse Rate 77 75 75 Respiratory 24 Rate Blood Pressure 150/65 O2 Sat by Pulse 84 L Oximetry 11/26/16 18:31 Temperature Pulse Rate 74 Respiratory 18 Rate Blood Pressure 168/70 O2 Sat by Pulse 97 Oximetry Medical Decision Making - Medical Decision Making I did discuss findings with the patient and with cardiology. Patient be admitted with reevaluation of cardiac status. She also demonstrated COPD exacerbation. - Lab Data Result diagrams: 11/26/16 18:05 11/26/16 18:05 Lab Results 11/26/16 11/26/16 11/26/16 Range/Units 18:05 18:05 18:05 WBC 7.6 (3.8-10.6) k/uL RBC 3.23 L (3.80-5.40) m/uL Hgb 8.2 L (11.4-16.0) gm/dL Hct 26.4 L (34.0-46.0) % MCV 81.8 (80.0-100.0) fL MCH 25.5 (25.0-35.0) pg MCHC 31.2 (31.0-37.0) g/dL RDW 17.0 H (11.5-15.5) % Plt Count 217 (150-450) k/uL Neutrophils % 74 % Lymphocytes % 12 % Monocytes % 6 % Eosinophils % 5 % Basophils % 0 % Neutrophils # 5.6 (1.3-7.7) k/uL Lymphocytes # 1.0 (1.0-4.8) k/uL Monocytes # 0.5 (0-1.0) k/uL Eosinophils # 0.4 (0-0.7) k/uL Basophils # 0.0 (0-0.2) k/uL Hypochromasia Marked Poikilocytosis Marked Anisocytosis Slight PT (9.0-12.0) sec INR (<1.1) APTT (22.0-30.0) sec D-Dimer (<0.60) mg/L FEU Sodium 138 (137-145) mmol/L Potassium 4.3 (3.5-5.1) mmol/L Chloride 103 (98-107) mmol/L Carbon Dioxide 26 (22-30) mmol/L Anion Gap 9 mmol/L BUN 51 H (7-17) mg/dL Creatinine 1.80 H (0.52-1.04) mg/dL Est GFR (MDRD) Af Amer 34 (>60 ml/min/1.73 sqM) Est GFR (MDRD) Non-Af 28 (>60 ml/min/1.73 sqM) Glucose 247 H (74-99) mg/dL Calcium 8.8 (8.4-10.2) mg/dL Magnesium 2.1 (1.6-2.3) mg/dL Total Bilirubin 0.8 (0.2-1.3) mg/dL AST 11 L (14-36) U/L ALT 20 (9-52) U/L Alkaline Phosphatase 136 H (38-126) U/L Total Creatine Kinase 66 (30-135) U/L CK-MB (CK-2) 1.0 (0.0-2.4) ng/mL CK-MB (CK-2) Rel Index 1.5 Troponin I 0.306 H* (0.000-0.034) ng/mL NT-Pro-B Natriuret Pep pg/mL Total Protein 6.4 (6.3-8.2) g/dL Albumin 3.5 (3.5-5.0) g/dL 11/26/16 11/26/16 Range/Units 18:05 18:05 WBC (3.8-10.6) k/uL RBC (3.80-5.40) m/uL Hgb (11.4-16.0) gm/dL Hct (34.0-46.0) % MCV (80.0-100.0) fL MCH (25.0-35.0) pg MCHC (31.0-37.0) g/dL RDW (11.5-15.5) % Plt Count (150-450) k/uL Neutrophils % % Lymphocytes % % Monocytes % % Eosinophils % % Basophils % % Neutrophils # (1.3-7.7) k/uL Lymphocytes # (1.0-4.8) k/uL Monocytes # (0-1.0) k/uL Eosinophils # (0-0.7) k/uL Basophils # (0-0.2) k/uL Hypochromasia Poikilocytosis Anisocytosis PT 10.8 (9.0-12.0) sec INR 1.1 (<1.1) APTT 23.4 (22.0-30.0) sec D-Dimer 0.50 (<0.60) mg/L FEU Sodium (137-145) mmol/L Potassium (3.5-5.1) mmol/L Chloride (98-107) mmol/L Carbon Dioxide (22-30) mmol/L Anion Gap mmol/L BUN (7-17) mg/dL Creatinine (0.52-1.04) mg/dL Est GFR (MDRD) Af Amer (>60 ml/min/1.73 sqM) Est GFR (MDRD) Non-Af (>60 ml/min/1.73 sqM) Glucose (74-99) mg/dL Calcium (8.4-10.2) mg/dL Magnesium (1.6-2.3) mg/dL Total Bilirubin (0.2-1.3) mg/dL AST (14-36) U/L ALT (9-52) U/L Alkaline Phosphatase (38-126) U/L Total Creatine Kinase (30-135) U/L CK-MB (CK-2) (0.0-2.4) ng/mL CK-MB (CK-2) Rel Index Troponin I (0.000-0.034) ng/mL NT-Pro-B Natriuret Pep 1610 pg/mL Total Protein (6.3-8.2) g/dL Albumin (3.5-5.0) g/dL - EKG Data -: EKG Interpreted by Mn EKG shows normal: sinus rhythm (Sinus rhythm of 75 VA to 22 QRS of 86 daily since QTC of 396/[address]-T wave configuration.) - Radiology Data Radiology results: report reviewed (I did review the imaging and report no acute findings compared to the previous x-ray.), image reviewed Disposition Clinical Impression: Non-Q wave ST elevation myocardial infarction (STEMI), Chronic obstructive pulmonary disease (COPD) Disposition: ADMITTED IP TO THIS [facility] Condition: Stable Referrals: Tyler Hermosillo DO [Primary Care Provider] - 1-2 days
--- NOTE | 2016-11-26 18:33 | XR ---
EXAMINATION TYPE: XR chest 2V DATE OF EXAM: 11/26/2016 6:21 PM COMPARISON: 11/23/2016 HISTORY: Short of breath TECHNIQUE: Frontal and lateral views of the chest are obtained. FINDINGS: Heart is enlarged. There is no gross heart failure. There is mild linear density at the le ft lung base. There is mild blunting of costophrenic angles. There are no hilar masses. There is some widening of the mediastinum probably due to lipomatosis. IMPRESSION: Bilateral pleural effusions with coarse interstitial density. There is no definite heart failure seen however. Cardiomegaly. Pulmonary vascularity is improved compared to 06/13/2015. Pleura l fluid is increased compared to 11/23/2016.
[2016-11-26 18:34] LABS: Anisocytosis Slight; Basophils % (A) 0 %; CH 25.7; CHCM 31.5; Eosinophils # (A) 0.4 k/uL (0-0.7); Eosinophils % (A) 5 %; HCT 26.4 % (34.0-46.0); HDW 4.93; HGB 8.2 gm/dL (11.4-16.0); Hypochromasia Marked; Luc # (Auto) 0.14; Luc % (Auto) 2; Lymphocytes % (A) 12 %; MCH 25.5 pg (25.0-35.0); MCHC 31.2 g/dL (31.0-37.0); MCV 81.8 fL (80.0-100.0); Monocytes # (A) 0.5 k/uL (0-1.0); Monocytes % (A) 6 %; Neutrophils # (A) 5.6 k/uL (1.3-7.7); Neutrophils % (A) 74 %; Poikilocytosis Marked; RBC 3.23 m/uL (3.80-5.40); WBC 7.6 k/uL (3.8-10.6); WBC (Perox) 8.02
[2016-11-26 18:43] LABS: Calcium 8.8 mg/dL (8.4-10.2); INR 1.1 (<1.1); Magnesium 2.1 mg/dL (1.6-2.3); Partial Thromboplastin Time 23.4 sec (22.0-30.0); Potassium 4.3 mmol/L (3.5-5.1); Prothrombin Time 10.8 sec (9.0-12.0); Total Bilirubin 0.8 mg/dL (0.2-1.3); Total Protein 6.4 g/dL (6.3-8.2)
[2016-11-26 19:00] LABS: Troponin I 0.306 ng/mL (0.000-0.034)
[2016-11-26] MEDS ORDERED: HEPARIN SODIUM,PORCINE 5,000 UNIT/ML 1 ML VIAL IV ONE (20:39)
[2016-11-26] MEDS ORDERED: NITROGLYCERIN SL TABS 0.4 MG TAB SUBLINGUAL PRN ×2 (20:39→20:42)
[2016-11-26] MEDS ORDERED: LORazepam 0.5 MG TAB PO PRN (20:42)
[2016-11-26] MEDS ORDERED: NYSTATIN 100,000 UNIT/GM POWD 15 GM TOPICAL PRN (20:42)
[2016-11-26] MEDS ORDERED: MECLIZINE 12.5 MG TAB PO PRN (20:42)
[2016-11-26] MEDS ORDERED: INSULIN GLARGINE 100 UNIT/ML 10 ML VIAL SQ SCH (21:00)
[2016-11-26] MEDS ORDERED: ACETAMINOPHEN TAB 500 MG TAB PO STA (21:03)
[2016-11-26] MEDS: HEPARIN SODIUM,PORCINE/D5W PMX 25,000 UNIT in DEXTROSE/WATER 1 500ML.BAG IV SCH (21:23)
[2016-11-26 22:19] LABS: Glucose,Whole Blood 353 mg/dL (75-99)
[2016-11-26] MEDS: SODIUM CHLORIDE 0.9% 1,000 ML IV SCH (22:19)
[2016-11-26] MEDS: ATORVASTATIN 80 MG TAB PO SCH (22:19)
[2016-11-26] MEDS: CARVEDILOL 12.5 MG TAB PO SCH (22:19)
[2016-11-26] MEDS: FUROSEMIDE 40 MG TAB PO SCH (22:19)
[2016-11-26] MEDS: NITROGLYCERIN OINT 1 INCH/GM PACKET TOPICAL SCH (23:21)
[2016-11-26 23:52] LABS: Creatine Kinase MB 1.1 ng/mL (0.0-2.4)
[2016-11-26 23:54] LABS: Troponin I 0.298 ng/mL (0.000-0.034)
[2016-11-27] MEDS: IPRATROPIUM-ALBUTEROL 3 ML NEB INHALATION SCH ×6 (00:02→20:21)
[2016-11-27 01:50] VITALS: BMI 41.7
[2016-11-27] MEDS: NITROGLYCERIN OINT 1 INCH/GM PACKET TOPICAL SCH ×4 (04:18→20:51)
[2016-11-27 05:57] LABS: Glucose,Whole Blood 322 mg/dL (75-99)
[2016-11-27] MEDS: INSULIN LISPRO (humaLOG) 300 UNIT/3 ML VIAL SQ SCH ×5 (06:36→20:53)
[2016-11-27] MEDS: CARVEDILOL 12.5 MG TAB PO SCH ×2 (06:38→18:04)
[2016-11-27 07:00] LABS: Cholesterol 98 mg/dL (<200); HDL Cholesterol 17 mg/dL (40-60); Triglycerides 405 mg/dL (<150)
[2016-11-27 07:13] LABS: Creatine Kinase MB 1.4 ng/mL (0.0-2.4)
[2016-11-27 07:20] LABS: Troponin I 0.177 ng/mL (0.000-0.034)
[2016-11-27] MEDS: INSULIN GLARGINE 100 UNIT/ML 10 ML VIAL SQ SCH ×2 (09:04→20:51)
[2016-11-27] MEDS: ASPIRIN 325 MG TAB PO SCH (09:05)
[2016-11-27] MEDS: ALLOPURINOL 100 MG TAB PO SCH (09:05)
[2016-11-27] MEDS: PANTOPRAZOLE 40 MG TABLET PO SCH (09:05)
[2016-11-27] MEDS: amLODIPine 10 MG TAB PO SCH (09:05)
[2016-11-27] MEDS: FUROSEMIDE 40 MG TAB PO SCH (09:05)
[2016-11-27] MEDS: HEPARIN SODIUM,PORCINE 5,000 UNIT/ML 1 ML VIAL IV PRN ×2 (09:14→18:41)
--- NOTE | 2016-11-27 11:21 | P.NPCON ---
History of Present Illness - Reason for Consult Consult date: 11/27/16 acute renal failure - Chief Complaint Shortness of breath - History of Present Illness This is a 66-year-old female seen in consultation with acute kidney injury and chronic kidney disease. She is admitted with shortness of breath after having been discharged on 11/25/2016 1 day prior to this admission.. She is feeling much better this morning after starting oxygen. She is currently on Lasix 40 twice a day by mouth She is known diabetic since 2004 with possible retinopathy with visual disturbance and was told that she needs some eye surgery details are unavailable. Previously she had 1+ proteinuria and her creatinine has been up and down between 0.9 in 2016-1.80 the last 2 years approximately. She is now admitted on 11/23/2016 with weakness tiredness possible unstable angina, anemia hemoglobin 6.8 and was worked up with a negative nuclear stress test discharged on 11/25/2016. Her recent catheterization dated 02/18/2016 showed patent stents in the left main severe disease involving the right and had 3 stent. As mentioned she had a negative stress test during last admission here on 2016 Her past history significant also for pulmonary hypertension and uterine cancer with no surgery but chemo and radiation and supposedly had a recent DNC and was cleared of any recurrence. She does have stress incontinence of urine. No history of hematuria or kidney stones. She also complains of bilateral flank pain chronically. On 06/16/2016 a computed tomography scan of the abdomen showed right kidney is smaller in size and atrophy without any hydronephrosis in the left kidney showed compensatory hypertrophy, a 2-4 mm nonobstructing stone and mild fullness in the left kidney. Mild to moderate diverticulosis noted Past Medical History Past Medical History: Asthma, Cancer, Heart Failure, COPD, CVA/TIA, Diabetes Mellitus, Eye Disorder, Fibromyalgia, GI Bleed, Hyperlipidemia, Hypertension, Myocardial Infarction ([place]), Osteoarthritis ([place]), Pneumonia Additional Past Medical History / Comment(s): anemia, possible uterine lesion/ cancer (pt has hx of uterine cancer tx with radiation), cystitis and vaginal bleeding. Other HX: 06/18/15 R femoral pseudoaneurysm which was thrombosed ( had thrombin injection) and another small R femoral stable aneurysm, acute renal failure, mild mitral and tricuspid regurg, severe pulmonary HTN, IBS, EMPHYSEMA, UTERINE CA RADITIAON ONLY, gastric ULCERS, STROKE 10-21-15- RT ARM FLACCID, RT LEG WEAK, low back pain x 30 yrs, migraines, was on thyroid medication as younger person and taken off, incontinent of urine-wears briefs.Pt stated has glaucoma, cataracts. Last Myocardial Infarction Date:: 06/12/15 History of Any Multi-Drug Resistant Organisms: None Reported Past Surgical History: Cholecystectomy, Heart Catheterization, Heart Catheterization With Stent Additional Past Surgical History / Comment(s): 06/12/15 Cardiac cath, 06/15/15 PTCA with stent mid L main, D&C X2, YRS AGO HAD A DEVICE IN FOR RADIATION TX FOR UTERINE CA THAT WAS SINCE REMOVED.EGD/COLONOSCOPY.02/18/16 heart cath 3 stents to rca Past Anesthesia/Blood Transfusion Reactions: Motion Sickness Additional Past Anesthesia/Blood Transfusion Reaction / Comment(s): CLAUSTROPHOBIA. Pt has had blood transfusion in past-no reaction to blood Date of Last Stent Placement:: 02/18/16 Past Psychological History: Anxiety, Depression Additional Psychological History / Comment(s): Pt resides with her spouse. She is basically wheel chair bound most of the time for the past several yrs. She at times ambulates with assistance or pushes her wheelchair. She feeds herself. She has a supportive family. She has a sister that helps with her bathing and her олег and spouse will help with her medication. Smoking Status: Former smoker Past Alcohol Use History: None Reported Additional Past Alcohol Use History / Comment(s): STARTED SMOKING AGE 20, STOPPED SMOKING - PPD BUT WOULD BURN HALF OUT IN TIEN TRAY Past Drug Use History: None Reported - Past Family History Father Additional Family Medical History / Comment(s): WAS A DRINKER WHEN YOUNGER , LOST AN ARM IN THE SERVICE, PANCREATITIS, LIVER CANCER- from at age 57yrs. Mother Family Medical History: CVA/TIA Additional Family Medical History / Comment(s): HEART PROBLEMS, STARTED DRINKING AFTER OF HER , she of a ruptured liver at age 58 yrs. Medications and Allergies Home Medications Medication Instructions Recorded Confirmed Type Insulin Glargine [Lantus] 60 unit SQ HS 01/15/16 11/26/16 History Carvedilol [Coreg] 25 mg PO BID 08/07/16 11/26/16 History Insulin Aspart [NovoLOG] 20 unit SQ AC-TID 08/07/16 11/26/16 History Insulin Glargine [Lantus] 10 unit SQ QAM 08/07/16 11/26/16 History Nitroglycerin Sl Tabs [Nitrostat] 0.4 mg SUBLINGUAL Q5M PRN 08/07/16 11/26/16 History Nystatin 100,000 Unit/gm Powd 1 applic TOPICAL BID PRN 08/26/16 11/26/16 History [Mycostatin Powder] Furosemide [Lasix] 40 mg PO BID 09/06/16 11/26/16 History Meclizine [Antivert] 12.5 mg PO Q6H PRN 10/19/16 11/26/16 History Allopurinol [Zyloprim] 150 mg PO DAILY 11/23/16 11/26/16 History LORazepam [Ativan] 0.5 mg PO TID PRN 11/23/16 11/26/16 History Ergocalciferol [Vitamin D2] 50,000 unit PO FR 11/26/16 11/26/16 History Allergies Allergy/AdvReac Type Severity Reaction Status Date / Time hydralazine Allergy Severe Anaphylaxis Verified 11/26/16 17:37 codeine AdvReac Severe Verified 11/26/16 17:37 Sedation hydrocodone AdvReac Severe Verified 11/26/16 17:37 Sedation lisinopril AdvReac Cough Verified 11/26/16 17:37 Physical Exam Vitals: Vital Signs Temp Pulse Pulse Resp BP BP Pulse Ox 11/27/16 10:22 76 11/27/16 10:05 74 18 11/27/16 04:00 97.3 F L 71 16 144/63 91 L 11/27/16 00:00 99.0 F 70 18 177/72 98 11/26/16 21:07 99.5 F 71 18 178/79 94 L 11/26/16 21:01 101 F H 74 16 153/67 98 11/26/16 18:31 74 18 168/70 97 11/26/16 18:13 75 11/26/16 18:01 75 11/26/16 17:34 99.5 F 77 24 150/65 84 L Intake and Output 11/26/16 11/27/16 11/27/16 22:59 06:59 14:59 Intake Total 140 225.333 Balance 140 225.333 Intake: IV 40 Heparin Sodium,Porcine/ 20 D5w Pmx 25,000 unit In Dextrose/Water 1 500ml. bag @ 10 UNITS/KG/HR 20. 04 mls/hr IV .Q24H DUSTIN Rx #:[id number] Sodium Chloride 0.9% 1, 20 000 ml @ 20 mls/hr IV . Q24H DUSTIN Rx#:[id number] Amount of Fluid Infused ( 100 ml) Intake, IV Titration 225.333 Amount Heparin Sodium,Porcine/ 225.333 D5w Pmx 25,000 unit In Dextrose/Water 1 500ml. bag @ 10 UNITS/KG/HR 20. 04 mls/hr IV .Q24H DUSTIN Rx #:[id number] Other: Voiding Method Bedside Commode # Voids 1 Weight 100.2 kg 102.6 kg On examination she is awake alert oriented comfortable she is obese. HEENT exam no JVP lymphadenopathy thyromegaly no carotid bruit neck is supple no facial asymmetry Lungs are clear to auscultation percussion fair air entry bilaterally Heart sounds are unremarkable for any murmur rub gallop normal sinus rhythm. abdomen soft nontender obese protuberant. Extremity exam reveals no edema Dorsalis pedis not felt but feet are warm. Neurologically awake alert oriented no focal motor deficit Results - Lab Results Most recent lab results Calcium 8.8 mg/dL (8.4-10.2) 11/26/16 18:05 Magnesium 2.1 mg/dL (1.6-2.3) 11/26/16 18:05 11/26/16 18:05 11/26/16 18:05 Assessment and Plan Plan: Impression. 1. Acute kidney injury with creatinine up to 1.8. Her baseline creatinine ranges between 0.9-1.8 over the last 2 years. The cause of this variation may be a combination off blood pressure volume status and possibly obstructive element on the left side. She does have a computed tomography scan in May 2016 which showed mild fullness of the left side. 2. Chronic kidney disease possibly from renovascular disease, atrophied right kidney, ultrasound shows 8.5 cm right and 13 cm left kidney on ultrasound, dated 08/27/2015 additionally computed tomography scan shows fullness of the left in May 2016. Possible diabetic nephropathy should be considered additionally as she has 1+ proteinuria dated 10/19/2016. 3. Admitted with chest discomfort and shortness of breath with past history of stenting 3 in January 2016 a chest x-ray is not very suggestive congestive heart failure. 4. Uterine cancer rule out hydronephrosis secondary to radiation especially affecting the left kidney. 5. Pulmonary hypertension, COPD, 6. Hemoglobin 8.2 anemia of chronic kidney disease and additionally from uterine bleeding. Rule out iron deficiency last iron saturation was 11.9% on . Recommendation. 1 maintain blood pressure around 120-140 as she might have renovascular disease. 2. No need for aggressive diuresis states watch her with orthostatic changes. Current Lasix is 40 mg twice a day, I'll reduce it to 20 mg a day. 3. Check ultrasound of the kidney, to ensure there is no hydronephrosis of the left and the size of the right kidney needs to be further looked. 4. Obtain urine protein to creatinine Ratio. 5. Check BMP tomorrow as she may be going for cardiac cath and if there is a trend up of creatinine, her cardiac catheterization then should be postponed, until the creatinine is stable.
[2016-11-27 12:08] LABS: Glucose,Whole Blood 396 mg/dL (75-99)
[2016-11-27] MEDS ORDERED: SODIUM CHLORIDE 0.9% 1,000 ML in EMPTY BAG 1 BAG IV ONE (12:16)
--- NOTE | 2016-11-27 12:44 | CONS ---
DATE OF CONSULTATION: 11/27/2016 Rossi is a 66-year-old lady with a history of coronary artery disease, status post prior angioplasty, chronic renal insufficiency, was actually in the hospital a week ago with chest pain, underwent a stress test and was discharged home. She comes back in with chest pain and again has mild troponin elevation. She describes it as a precordial chest tightness, a pressure-like sensation that came on at rest, without definite radiation to neck, arm or back. The patient has known severe anemia and had prior cardiac catheterization that showed a patent stent within the left main. Past medical history is significant for anemia, cancer, COPD, diabetes, bleed, hypertension, dyslipidemia, osteoarthritis, carcinoma of the uterus. SOCIAL HISTORY: Negative for current smoking, EtOH abuse, or drug abuse. REVIEW OF SYSTEMS: HEENT: Unremarkable. CARDIAC: As described above. RESPIRATORY: Significant shortness of breath. PSYCHOSOCIAL: Negative. ENDOCRINE: Negative. Dermatology: Negative. CONSTITUTIONAL: Negative. GENITOURINARY: Significant for uterine bleed. Oncological: As described above. The rest of the system review is not relevant. ALLERGIES: Include HYDRALAZINE, CODEINE, HYDROCODONE, LISINOPRIL. Medications at home include: 1. Norvasc 10 q.d. 2. Protonix 40 q.d. 3. Antivert. 4. Ativan. 5. Insulin. 6. Lasix. 7. Coreg. 8. Lipitor. 9. Aspirin. 10. Zyloprim. 11. Proventil. On exam, comfortable at rest. Vital signs are stable. There is no jugular venous distention. Carotid upstroke is normal. There is no bruit. Chest exam reveals good air entry bilaterally. Heart exam reveals first and second heart sounds. No gallop. No murmur. Abdomen is soft, nontender. Exam of the extremities did not reveal edema. Peripheral pulses are felt. Labs show that the BUN is 51. Creatinine is 1.8. Troponins are 0.3, 0.2 and 0.1. Hemoglobin is 8.2. ASSESSMENT: 1. Non-ST segment elevation myocardial infarction. 2. Chronic renal insufficiency. 3. Morbid obesity. 4. History of vagina. bleed. 5. Anemia. PLAN: I advised the patient to undergo cardiac catheterization tomorrow with Dr. Dacosta.
--- NOTE | 2016-11-27 12:48 | US ---
EXAMINATION TYPE: US kidneys/renal and bladder DATE OF EXAM: 11/27/2016 COMPARISON: CT and US CLINICAL HISTORY: hydro. Renal failure EXAM MEASUREMENTS: Right Kidney: 8.8 x 2.7 x 3.4 cm Left Kidney: 14.1 x 7.6 x 7.1 cm Large pt body habitus Right Kidney: Atrophic as seen on priors Left Kidney: No evidence of hydro, appeared wnl Bladder: Not fully distended to evaluate Bilateral Jets seen: No Incidental finding enlarged Spleen Right kidney is smaller than the left. This is not a new finding. There is no evidence of hydronephro sis or nephrolithiasis. The bladder is not distended. Neither ureteral jet was visualized. IMPRESSION: 1. ATROPHIC RIGHT KIDNEY. 2. THE TECHNOLOGIST REPORTS OR MEGALY BUT A MEASUREMENT WAS NOT ACQUIRED.
[2016-11-27 17:14] LABS: Glucose,Whole Blood 306 mg/dL (75-99)
[2016-11-27] MEDS ORDERED: IPRATROPIUM-ALBUTEROL 3 ML NEB INHALATION PRN (18:45)
[2016-11-27 20:45] LABS: Glucose,Whole Blood 290 mg/dL (75-99)
[2016-11-27] MEDS: ATORVASTATIN 80 MG TAB PO SCH (20:51)
[2016-11-27] MEDS: HEPARIN SODIUM,PORCINE/D5W PMX 25,000 UNIT in DEXTROSE/WATER 1 500ML.BAG IV SCH (20:51)
[2016-11-27] MEDS: SODIUM CHLORIDE 0.9% 1,000 ML IV SCH (21:02)
[2016-11-28] MEDS: NITROGLYCERIN OINT 1 INCH/GM PACKET TOPICAL SCH ×4 (02:41→21:38)
[2016-11-28 05:58] LABS: Glucose,Whole Blood 172 mg/dL (75-99)
[2016-11-28] MEDS: PANTOPRAZOLE 40 MG TABLET PO SCH (06:04)
[2016-11-28] MEDS: CARVEDILOL 12.5 MG TAB PO SCH ×2 (06:04→17:22)
[2016-11-28] MEDS: ALLOPURINOL 100 MG TAB PO SCH (06:04)
[2016-11-28] MEDS: amLODIPine 10 MG TAB PO SCH (06:04)
[2016-11-28] MEDS: ASPIRIN 325 MG TAB PO SCH (06:04)
[2016-11-28] MEDS: INSULIN LISPRO (humaLOG) 300 UNIT/3 ML VIAL SQ SCH ×7 (06:11→21:40)
[2016-11-28 06:55] LABS: Anisocytosis Slight; Basophils % (A) 0 %; CH 25.7; CHCM 32.1; Eosinophils # (A) 0.5 k/uL (0-0.7); Eosinophils % (A) 7 %; HCT 22.8 % (34.0-46.0); HDW 5.06; HGB 7.2 gm/dL (11.4-16.0); Hypochromasia Marked; Luc # (Auto) 0.13; Luc % (Auto) 2; Lymphocytes # (A) 0.9 k/uL (1.0-4.8); Lymphocytes % (A) 14 %; MCH 25.3 pg (25.0-35.0); MCHC 31.5 g/dL (31.0-37.0); MCV 80.3 fL (80.0-100.0); Mean Platelet Volume 7.5; Monocytes # (A) 0.4 k/uL (0-1.0); Monocytes % (A) 6 %; Neutrophils # (A) 4.7 k/uL (1.3-7.7); Neutrophils % (A) 71 %; Poikilocytosis Marked; RBC 2.84 m/uL (3.80-5.40); RDW 17.5 % (11.5-15.5); WBC 6.6 k/uL (3.8-10.6); WBC (Perox) 7.15
[2016-11-28] MEDS: IPRATROPIUM-ALBUTEROL 3 ML NEB INHALATION SCH ×4 (07:59→19:59)
[2016-11-28 08:04] LABS: Hemoglobin A1C 7.9 % (4.2-6.1)
[2016-11-28 08:25] LABS: Calcium 8.4 mg/dL (8.4-10.2); Potassium 3.9 mmol/L (3.5-5.1)
[2016-11-28] MEDS ORDERED: FUROSEMIDE 40 MG TAB PO SCH (09:00)
[2016-11-28] MEDS ORDERED: ASPIRIN 325 MG TAB PO STA (09:48)
[2016-11-28] MEDS ORDERED: ATORVASTATIN 80 MG TAB PO STA (09:48)
[2016-11-28] MEDS ORDERED: SODIUM CHLORIDE 0.9% 1,000 ML in EMPTY BAG 1 BAG IV ONE (09:48)
[2016-11-28] MEDS ORDERED: ALPRAZolam 0.5 MG TAB PO PRN (09:48)
[2016-11-28] MEDS ORDERED: NITROGLYCERIN SL TABS 0.4 MG TAB SUBLINGUAL PRN (09:48)
[2016-11-28] MEDS ORDERED: ALPRAZolam 0.25 MG TAB PO PRN (09:48)
[2016-11-28] MEDS: INSULIN GLARGINE 100 UNIT/ML 10 ML VIAL SQ SCH ×2 (10:08→21:44)
[2016-11-28 12:10] LABS: Glucose,Whole Blood 243 mg/dL (75-99)
--- NOTE | 2016-11-28 14:48 | HP ---
DATE OF ADMISSION: 11/26/2016 PRESENTING COMPLAINT: Short of breath. HISTORY OF PRESENTING COMPLAINT: This is a very pleasant lady who was discharge from hospital on 11/25/2016. The patient then was admitted with chest pain. Had underwent a nuclear stress test that was negative. Patient also was found to be anemic and was given a unit of blood. The patient has chronic long-standing vaginal bleeding, due for outpatient surgery. Due for outpatient surgery. Patient did get a unit of blood. 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 The patient is due for surgery for vaginal bleeding as an outpatient. The patient after leaving became more and more short of breath. Slight wheezing. No cough. Some edema. Was admitted for the same. Chest x-ray shows some venous prominence and pleural effusion. REVIEW OF SYSTEMS: CONSTITUTIONAL: None. HEENT: None. RESPIRATORY: As above. CARDIOVASCULAR: As above. GASTROINTESTINAL: None. GENITOURINARY: Irregular vaginal bleeding. MUSCULOSKELETAL: Pain in the joints. DERMATOLOGICAL: None. HEMATOLOGICAL: None. LYMPHATIC: None. PSYCHIATRY: None. NEUROLOGICAL: Weakness of the right side. PAST MEDICAL HISTORY: GI bleed with gastric and duodenal ectasia with argon plasma coagulation, congestive heart failure and diastolic dysfunction with ejection fraction 55%, essential hypertension, right-sided arm weakness from old stroke, especially right arm, diabetes mellitus type 2, coronary artery disease with stent to the LAD and right coronary artery in January of 2016, hyperlipidemia, COPD, fibromyalgia, osteoarthritis, chronic urinary stress incontinence, depression, uterine cancer, urinary incontinence, history of right femoral pseudoaneurysm that was thrombosed. PAST SURGICAL HISTORY: Cardiac cath with stent, uterine cancer, cardiac catheterization in May 2016, D&C, EGD, colonoscopy. SOCIAL HISTORY: . Uses a wheelchair to get about. Stopped smoking in May 2015. Smoked 4 packs a day for 40 years. FAMILY HISTORY: Cancer, pancreatitis. ALLERGIES: HYDRALAZINE, CODEINE, HYDROCODONE, LISINOPRIL. HOME MEDICATIONS: 1. Lipitor 80 mg at bedtime. 2. Protonix 40 mg a day. 3. Aspirin 81 mg a day. 4. Lantus 6 units subcu at bedtime. 5. Norvasc 10 mg a day. 6. Coreg 25 p.o. b.i.d. 7. NovoLog 20 nits subcu with meals t.i.d. 8. Lantus 10 units subcu in the morning. 9. Nitrostat 0.4 sublingual every 5 p.r.n. 5% powder one application topically b.i.d. 10. Lasix 40 mg b.i.d. 11. Antivert 12.5 every 6 p.r.n. 12. Allopurinol 100 mg p.o. daily. 13. Ativan 0.5 p.o. daily p.r.n. 14. Proventil 2 puffs every 4 p.r.n. 15. Patient also takes Lantus in the evening. On examination, temperature 97.9, pulse 55, respirations 18, blood pressure 139/64, pulse ox 94% on 3L. GENERAL: Sitting up, not in distress. EYES: Pupils equal. Conjunctivae normal. HEENT: External appearance of nose and ears normal. Oral cavity normal. NECK: JVD possibly raised palpable. RESPIRATORY: Effort normal. LUNGS: Diminished breath sounds. CARDIOVASCULAR: First and second heart sounds. Mild edema. ABDOMEN: Soft, nontender. Liver and spleen not palpable. LYMPHATIC: No lymph node palpable in axillae. PSYCHIATRY: Alert and oriented x3. Mood and affect normal. NEUROLOGICAL: Contracture of the right arm. Otherwise power and sensation grossly intact. INVESTIGATIONS: White count 7.6, hemoglobin 8.2. Potassium 4.3, BUN 51, creatinine 1.80. Troponin 0.306, ( ). Chest x-ray reviewed by me shows some pulmonary edema, fluid in the ( ) fissure. ASSESSMENT: 1. Acute on chronic congestive heart failure exacerbation from diastolic dysfunction, ejection fraction 55%. 2. Chronic obstructive pulmonary disease in an ex-smoker. 3. Recurrent vaginal bleeding for outpatient surgery. 4. Chronic diverticulosis. 5. 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 6. Essential hypertension. 7. Right arm weakness from old stroke. 8. Diabetes mellitus type 2, chronically on insulin. 9. Obesity, BMI 42. 10. Coronary artery disease with stent to the LAD and right coronary artery. 11. Hyperlipidemia. 12. Fibromyalgia. 13. Osteoarthritis in multiple joints, bilaterally. 14. Previous history of stress incontinence. 15. Depression, not otherwise specified. PLAN: Patient got increased dose of Lasix in the ER. Breathing is better. Home medications are resumed. Cardiology was consulted. We will consider doing a cardiac catheterization. Nephrology also consulted. Care was discussed with the patient. He did feel a bit better since coming in.
[2016-11-28] MEDS: SODIUM CHLORIDE 0.9% 1,000 ML IV SCH (15:12)
[2016-11-28] MEDS: SODIUM FERRIC GLUCONAT-SUCROSE 125 MG in SODIUM CHLORIDE 0.9% 100 ML IVPB SCH (16:02)
--- NOTE | 2016-11-28 16:17 | PN ---
This patient is seen for follow-up for acute kidney injury. She was admitted with a creatinine of 1.8. It is now down to 1.76. Previous creatinine has been at about 1.5 to 1.6 mg/dL. Patient's troponins have been elevated. She is being considered for cardiac catheterization, which is currently on hold secondary to worsening renal function. On examination today, patient is comfortable. She is not in any acute distress. Blood pressure 135/65, heart rate 87 per minute, examination of the heart S1 and S2. Examination of the lungs: Bilateral breath sounds are heard. ABDOMEN: Soft, nontender. Examination of lower extremities shows no evidence of edema. PIN WORKER exam is grossly intact. Labs show sodium 138, potassium 3.9, serum creatinine 1.76, BUN of 52. Hemoglobin 7.2 g/dL. ASSESSMENT: 1. Acute kidney injury on top of chronic kidney disease. Currently patient is nonoliguric. Her creatinine is perhaps slightly improved. I will start her on IV fluids and we can proceed with cardiac catheterization, most likely tomorrow. I will recommend to hold cardiac cath today. 2. Anemia with significant iron deficiency. Iron saturation at 11%. We will maintain patient on IV iron. 3. Chronic kidney disease, most likely renovascular disease with atrophic right kidney possibly an element of diabetic nephropathy as well. 4. Iron deficiency anemia. PLAN: Start IV iron. Start gentle IV hydration. Start IV iron. Okay to proceed with cardiac catheterization tomorrow. If possible hold off on cardiac catheterization today.
[2016-11-28 17:11] LABS: Glucose,Whole Blood 224 mg/dL (75-99)
[2016-11-28 20:38] LABS: Glucose,Whole Blood 187 mg/dL (75-99)
[2016-11-28] MEDS: ATORVASTATIN 80 MG TAB PO SCH (21:40)
--- NOTE | 2016-11-28 23:28 | PN ---
DATE OF SERVICE: 11/28/16. PRESENTING COMPLAINT: Shortness of breath. INTERVAL HISTORY: This patient was admitted with chest pain and shortness of breath and was found to have acute exacerbation of congestive heart failure. Patient is lying in bed, comfortable, mild shortness of breath noted at rest, scheduled for cardiac catheterization today; however, kidney function is elevated. Therefore, test was postponed. Tolerating her diet, ambulatory, short distances to and from the commode with assistance. at the bedside. Review of systems done for constitutional, cardiovascular, GI, pulmonary, with relevant findings as above. CURRENT MEDICATIONS: DuoNeb, Zyloprim 150 mg daily, Norvasc 10 mg daily, Coreg 25 mg b.i.d., Lasix 20 mg daily. PHYSICAL EXAMINATION: VITAL SIGNS: Temperature 97.1, pulse 67, respiratory rate 18, blood pressure 145/65, oxygen saturation 95% on room air. GENERAL APPEARANCE: Patient lying in the bed, short of breath at rest. EYES: Pupils equal. Conjunctivae normal. NECK: JVD raised. Mass not palpable. LUNGS: Sounds diminished scattered over bilateral lung manuel. RESPIRATORY: Effort labored. CARDIOVASCULAR: First and second sounds noted. Moderate edema noted. ABDOMEN: Soft, nontender. Liver and spleen not palpable. PSYCHIATRY: Alert and oriented x3. Mood and affect normal. INVESTIGATIONS: Hemoglobin 7.2, platelet count 191. BUN 52, creatinine 1.76. Accu-Cheks noted. Ultrasound of the kidney bladder no evidence of hydronephrosis or nephrolithiasis. ASSESSMENT: 1. Acute on chronic congestive heart failure exacerbation from diastolic dysfunction, ejection fraction 55%, improving. 2. Chronic obstructive pulmonary disease in an ex-smoker. 3. Recurrent vaginal bleeding from outpatient surgery. 4. Chronic diverticulosis. 5. Chronic gastritis and duodenal ectasia with history of argon plasma anticoagulation. 6. Essential hypertension. 7. Right arm weakness from old stroke. 8. Diabetes mellitus type 2, chronically on insulin. 9. Obesity; body mass index 42. 10. Coronary artery disease with stent to LAD and right coronary artery. 11. Hyperlipidemia. 12. Fibromyalgia. 13. Osteoarthritis in multiple joints bilaterally. 14. Previous history of stress incontinence. 15. Depression not otherwise specified. PLAN: Patient continues on Lasix, breathing is somewhat better. Cardiology postponed heart catheterization due to increased BUN and creatinine. Plan of care discussed with patient and . We will continue to monitor closely. Patient was seen and examined by nurse practitioner, Connie Livingston, and all elements of the case discussed with attending, Dr. Aguila. I performed a history and physical examination of this patient and discussed the same with the dictator. I agree with the dictator's note. Any additional findings/opinions, etc. will be noted.
[2016-11-29] MEDS: HEPARIN SODIUM,PORCINE/D5W PMX 25,000 UNIT in DEXTROSE/WATER 1 500ML.BAG IV SCH ×2 (00:57→20:46)
[2016-11-29] MEDS: NITROGLYCERIN OINT 1 INCH/GM PACKET TOPICAL SCH ×3 (00:59→14:53)
[2016-11-29] MEDS: SODIUM CHLORIDE 0.9% 1,000 ML IV SCH (03:19)
[2016-11-29 06:02] LABS: Glucose,Whole Blood 116 mg/dL (75-99)
[2016-11-29] MEDS: INSULIN LISPRO (humaLOG) 300 UNIT/3 ML VIAL SQ SCH ×7 (06:08→20:49)
[2016-11-29] MEDS: CARVEDILOL 12.5 MG TAB PO SCH ×2 (06:34→18:28)
[2016-11-29] MEDS: ASPIRIN 325 MG TAB PO SCH (06:34)
[2016-11-29] MEDS: PANTOPRAZOLE 40 MG TABLET PO SCH (06:34)
[2016-11-29] MEDS: amLODIPine 10 MG TAB PO SCH (06:34)
[2016-11-29] MEDS: ALLOPURINOL 100 MG TAB PO SCH (06:34)
[2016-11-29 07:09] LABS: Anisocytosis Slight; Basophils % (A) 0 %; CH 25.6; CHCM 31.8; Eosinophils # (A) 0.4 k/uL (0-0.7); Eosinophils % (A) 6 %; HCT 22.1 % (34.0-46.0); HDW 4.97; HGB 7.1 gm/dL (11.4-16.0); Hypochromasia Marked; Luc # (Auto) 0.15; Luc % (Auto) 2; Lymphocytes # (A) 0.8 k/uL (1.0-4.8); Lymphocytes % (A) 14 %; MCH 25.9 pg (25.0-35.0); MCHC 32.1 g/dL (31.0-37.0); MCV 80.8 fL (80.0-100.0); Mean Platelet Volume 7.7; Monocytes # (A) 0.3 k/uL (0-1.0); Monocytes % (A) 5 %; Neutrophils # (A) 4.5 k/uL (1.3-7.7); Neutrophils % (A) 72 %; Poikilocytosis Marked; RBC 2.74 m/uL (3.80-5.40); RDW 17.6 % (11.5-15.5); WBC 6.2 k/uL (3.8-10.6); WBC (Perox) 6.32
[2016-11-29 07:41] LABS: Calcium 8.9 mg/dL (8.4-10.2)
--- NOTE | 2016-11-29 07:58 | PN ---
DATE OF SERVICE: 11/28/2016 PRESENTING COMPLAINT: Short of breath. Attending note: This patient was seen and examined by me earlier today. Reviewed the note of my nurse practitioner, Ms. Livingston, and discussed with her. Patient admitted with short of breath, felt to be fluid overload. Also going to have a cardiac catheterization delayed because of renal function. Patient has some wheezing today. is at the bedside. On examination, blood pressure 135/65, pulse ox 97% on room air. LUNGS: Wheezing is present. CARDIOVASCULAR: First and second sounds normal. ASSESSMENT: 1. Acute on chronic congestive heart failure exacerbation from diastolic dysfunction; ejection fraction 55%, from underlying coronary artery disease, now stabilized. 2. Acute chronic obstructive pulmonary disease exacerbation. PLAN: Continue current medication and treatment plan. Patient on bronchodilators. Follow renal function closely and then the patient will have a cardiac catheterization.
[2016-11-29] MEDS: IPRATROPIUM-ALBUTEROL 3 ML NEB INHALATION SCH ×4 (08:21→19:23)
[2016-11-29] MEDS ORDERED: MIDAZOLAM 2 MG/2 ML VIAL IVP ONE (09:25)
[2016-11-29] MEDS ORDERED: LIDOCAINE 2% INJ 20 MG/ML SQ ONE (09:27)
[2016-11-29] MEDS: VERAPAMIL SYRINGE (5 MG/10 ML) INTRAARTER ONE ×3 (09:28→09:51)
[2016-11-29] MEDS ORDERED: HEPARIN SODIUM 1,000 UNIT/ML VIAL IV ONE (09:36)
[2016-11-29] MEDS ORDERED: SODIUM CHLORIDE 0.9% 1,000 ML IV ONE (09:37)
[2016-11-29] MEDS ORDERED: IODIXANOL 320 MG/ML 100 ML INTRAARTER ONE (09:51)
[2016-11-29] MEDS: SODIUM FERRIC GLUCONAT-SUCROSE 125 MG in SODIUM CHLORIDE 0.9% 100 ML IVPB SCH (10:12)
[2016-11-29] MEDS: FUROSEMIDE 20 MG TAB PO SCH (10:16)
[2016-11-29] MEDS: INSULIN GLARGINE 100 UNIT/ML 10 ML VIAL SQ SCH ×2 (10:34→20:54)
[2016-11-29] MEDS ORDERED: RX INFO: IV CONTRAST WAS GIVEN 1 EACH MISC MISCELLANE PRN (10:37)
[2016-11-29] MEDS ORDERED: SODIUM CHLORIDE 0.9% 1,000 ML IV SCH (10:45)
--- NOTE | 2016-11-29 11:39 | CC ---
DATE OF SERVICE: 11/29/2016 PERFORMING PHYSICIAN: Bernardo Dacosta MD, [facility] Host PROCEDURE PERFORMED: Selective right and left coronary angiogram. INDICATION: This is a pleasant 66-year-old female patient who is known to have coronary artery disease with prior stenting of the proximal and mid-RCA as well as prior stenting of the left main coronary artery, presented to the hospital with chest discomfort and was ruled in for acute non-STEMI. She was brought today to undergo a heart catheterization. APPROACH: Right radial artery. COMPLICATION: None. LEVEL OF SEDATION: Moderate with sedation length of 26 minutes. PROCEDURE DESCRIPTION: After obtaining a informed consent, the patient was brought to the [facility]. The right radial artery was cannulated using micropuncture technique. The micropuncture wire passed easily, then I placed a 6 Serbian sheath in the right radial artery. Subsequently, I gave the patient 2 mg of Verapamil IM, 3000 units of heparin IV. After that, I did selective right and left coronary angiogram using JR4 and JL3.5 catheters. The procedure was completed without any complication. SELECTIVE CORONARY ANGIOGRAM: 1. The right coronary artery is a large caliber vessel and it is a dominant vessel. The proximal RCA is stented and the stent is patent. The mid-RCA is stented and stent is patent. The RCA on this study appeared to have mild disease only and bifurcates into PTL and PLV branches, both have mild diffuse disease. 2. The left main is stented and the stent is patent. Bifurcates into a small left circumflex and left anterior descending artery. 3. The left circumflex is a small to medium caliber vessel and is a nondominant vessel. The left circumflex appears to have mild diffuse disease only. 4. The left anterior descending artery - The proximal LAD appeared to have disease in the range of 30% to 40%. This is by the bifurcation of the first diag branch which is small to medium-caliber vessel with moderate disease only. The mid-LAD appeared to have mild disease only and the LAD distally appeared to have mild disease only. CONCLUSION: 1. Patent stent in the proximal and mid right coronary artery. 2. Patent stent in the main coronary artery. 3. Mild disease involving the left circumflex coronary artery. 4. Intermediate disease involving the proximal left anterior descending coronary artery. POST-PROCEDURE MANAGEMENT: 1. Maximize medical treatment. 2. Follow up with the patient.
[2016-11-29 11:49] LABS: Glucose,Whole Blood 215 mg/dL (75-99)
--- NOTE | 2016-11-29 12:18 | PN ---
DATE OF SERVICE: 11/29/2016 PRESENTING COMPLAINT: Shortness of breath. INTERVAL HISTORY: This patient was admitted with chest pain and shortness of breath found to have an acute exacerbation of congestive heart failure. Patient is being taken today for cardiac catheterization, appears mildly distressed, family is at the bedside. Calm and cooperative, yet anxious-appearing. N.p.o. for procedure. able to ambulate short distances to and from the commode with assistance. Family is at the bedside. Review of systems done for constitutional, cardiovascular, GI, pulmonary, with relevant findings as above. CURRENT MEDICATIONS: DuoNeb, Zyloprim, Norvasc, Coreg, Lasix. PHYSICAL EXAM: VITAL SIGNS: Temperature 97.7, pulse 69, respiratory rate 16, blood pressure 142/65, oxygen saturation 98% on 2 L. GENERAL APPEARANCE: Calm and cooperative, yet mildly anxious-appearing, mildly short of breath. EYES: Pupils equal. Conjunctivae are normal. NECK: JVD not raised. Mass not palpable. LUNGS: Diminished breath sounds with wheezing noted. RESPIRATORY: Effort mildly labored. CARDIOVASCULAR: First and second sounds noted. Trace edema. ABDOMEN: Soft, nontender. Liver and spleen not palpable. PSYCHIATRY: Alert and oriented x3. Mood and affect anxious-appearing. INVESTIGATIONS: Hemoglobin 7.1, platelet count 175, BUN 43, creatinine 1.53. Blood glucose 215. Cardiac catheterization reveals mild disease involving the left circumflex coronary artery and intermediate disease involving the proximal left anterior descending coronary artery, patient does have 2 stents, one in the main coronary and one in the proximal and mid coronary right artery. ASSESSMENT: 1. Acute on chronic congestive heart failure exacerbation from diastolic dysfunction. Ejection fraction 55%, now stabilized. 2. Acute chronic obstructive pulmonary disease exacerbation in an ex-smoker. 3. Recurrent vaginal bleeding from outpatient surgery. 4. Chronic diverticulosis. 5. Chronic gastritis and duodenal ectasia with history of argon plasma anticoagulation. 6. Essential hypertension. 7. Right arm weakness from old stroke. 8. Diabetes mellitus type 2, chronically on insulin. 9. Obesity; body mass index of 42. 10. Coronary artery disease with stent to LAD and right coronary artery. 11. Hyperlipidemia. 12. Fibromyalgia. 13. Osteoarthritis of multiple joints, bilaterally. 14. Previous history of stress incontinence. 15. Depression, not otherwise specified. PLAN: Cardiac catheterization completed. Recommends optimization of medical treatment. No new stents placed. Will continue to monitor patient closely. Patient seen and examined by nurse practitioner, Connie Livingston, and all elements of the case discussed with attending, Dr. Augila.
[2016-11-29 16:54] LABS: Glucose,Whole Blood 162 mg/dL (75-99)
[2016-11-29 20:40] LABS: Glucose,Whole Blood 165 mg/dL (75-99)
[2016-11-29] MEDS: ATORVASTATIN 80 MG TAB PO SCH (20:54)
[2016-11-29] MEDS ORDERED: FUROSEMIDE 10 MG/ML 4 ML VIAL IV STA (21:52)
--- NOTE | 2016-11-29 22:10 | PN ---
Patient is seen for followup for acute kidney injury on top of chronic kidney disease. Currently patient is complaining of shortness of breath when she was seen in the morning. Patient had IV fluids running, which I started yesterday. Her renal function has improved with serum creatinine down to 1.53 mg/dL from 1.8 on 11/26/2016. Patient did have a cardiac catheterization this morning, which showed patent stent in the right coronary artery. The stent in the main coronary artery was also patent. Medical therapy is to be maximized. Patient denies any chest pains. On examination, blood pressure 145/67, heart rate 65 per minute. The patient is afebrile. HEART: S1 and S2. LUNGS: Bilateral breath sounds are heard. ABDOMEN: Soft, nontender, obese. Lower extremities show trace edema. RACK CARRIER: Grossly intact. Labs revealed sodium 143, potassium 4.0, chloride 109, BUN 43, serum creatinine 1.53. Hemoglobin 7.1 g/dL. ASSESSMENT: 1. Acute kidney injury on initial admission, currently improved. 2. Volume overload. Will Hep-Lock IV fluids. Patient was given oral Lasix. I will give her a dose of IV Lasix as well. 3. Chest pain with [id number] myocardial infarction, status post cardiac catheterization, which showed patent previous coronary stents. 4. Anemia with no active bleeding noted. Iron saturation was 11%. Patient has been started on IV iron. PLAN: Hep-Lock IV fluids, IV Lasix x1. Repeat labs in a.m. Possible discharge by tomorrow.
[2016-11-30 06:18] LABS: Glucose,Whole Blood 136 mg/dL (75-99)
[2016-11-30] MEDS: CARVEDILOL 12.5 MG TAB PO SCH ×2 (06:47→17:25)
[2016-11-30] MEDS: INSULIN LISPRO (humaLOG) 300 UNIT/3 ML VIAL SQ SCH ×7 (07:02→21:44)
[2016-11-30] MEDS: IPRATROPIUM-ALBUTEROL 3 ML NEB INHALATION SCH ×4 (07:44→19:05)
[2016-11-30] MEDS: ASPIRIN 325 MG TAB PO SCH (08:16)
[2016-11-30] MEDS: SODIUM FERRIC GLUCONAT-SUCROSE 125 MG in SODIUM CHLORIDE 0.9% 100 ML IVPB SCH (08:17)
[2016-11-30] MEDS: ALLOPURINOL 100 MG TAB PO SCH (08:17)
[2016-11-30] MEDS: FUROSEMIDE 20 MG TAB PO SCH (08:17)
[2016-11-30] MEDS: PANTOPRAZOLE 40 MG TABLET PO SCH (08:17)
[2016-11-30] MEDS: amLODIPine 10 MG TAB PO SCH (08:17)
[2016-11-30] MEDS: INSULIN GLARGINE 100 UNIT/ML 10 ML VIAL SQ SCH ×2 (08:17→21:48)
--- NOTE | 2016-11-30 09:07 | XR ---
EXAMINATION TYPE: XR chest 2V DATE OF EXAM: 11/30/2016 COMPARISON: 11/26/2016 HISTORY: Shortness of breath TECHNIQUE: Frontal and lateral views of the chest are obtained. FINDINGS: Scattered senescent parenchymal changes noted. Hyperinflation compatible with COPD. Persistent cardiomegaly with pulmonary venous congestion as well as small effusions and patchy basila r density may reflect persistent congestive heart failure. Mediastinal structures are stable and grossly unremarkable. No evidence for hilar prominence. Degenerative changes dorsal spine. IMPRESSION: 1. Persistent cardiomegaly with pulmonary venous congestion as well as small effusions and patchy bas ilar density may reflect persistent congestive heart failure.
--- NOTE | 2016-11-30 11:17 | P.PN ---
Subjective Principal diagnosis: shortness of breath this is a pleasant 66-year-old female with known history of coronary artery disease, status post prior angioplasty,anemia, COPD, diabetes, hypertension, hyperlipidemia,chronic renal insufficiency, patient presented to the hospital with symptoms mainly of exertional shortness of breath with mild chest discomfort. She was noted to have abnormality in her troponin and for this reason was taken to the cardiac catheterization lab yesterday by Dr. Dacosta. Cardiac catheterization revealed patent stent in the proximal and mid right coronary artery, patent stent in the left main, mild disease involving the left circumflex, intermediate disease in the proximal LAD. Maximal medical therapy advised. The patient was seen and examined this morning, she apparently got up to the bedside commode this morning and became quite short of breath, oxygen saturation going down to 80%.At the time of my examination, patientwas sitting up in bed, mild shortness of breath, denies any chest pain. Sodium 144, potassium 4.0, BUN 35, creatinine 1.5. Blood pressure 170/74 with a heart rate in the 70s. Objective - Vital Signs Vital signs: Vital Signs Temp 98.4 F 11/30/16 08:00 Pulse 71 11/30/16 08:00 Resp 20 11/30/16 08:00 BP 171/74 11/30/16 08:00 Pulse Ox 96 11/30/16 08:00 Intake & Output 11/29/16 11/30/16 11/30/16 18:59 06:59 18:59 Intake Total 1115 540 120 Output Total 900 300 Balance 215 240 120 Intake: IV 875 420 Heparin Sodium,Porcine/ 200 D5w Pmx 25,000 unit In Dextrose/Water 1 500ml. bag @ 10 UNITS/KG/HR 20. 04 mls/hr IV .Q24H [facility] Rx #:[id number] Sodium Chloride 0.9% 1, 600 420 000 ml @ 60 mls/hr IV . [id number] [facility] Rx#:[id number] Oral 240 120 120 Output: Urine 900 300 Other: Voiding Method Bedside Commode Bedside Commode # Voids 1 # Bowel Movements 1 - Exam PHYSICAL EXAMINATION: HEENT: Head is atraumatic, normocephalic. Pupils equal, round. Neck is supple. There is no elevated jugular venous pressure. HEART EXAMINATION: Heart S1, S2 normal. No murmur or gallop heard. CHEST EXAMINATION:Lungs are clear to auscultation with mild diminished air entry to the bases. No chest wall tenderness is noted on palpation or with deep breathing. ABDOMEN: Soft, nontender. Bowel sounds are heard. No organomegaly noted. Right radial site clean and dry, good distal pulse. EXTREMITIES: 2+ peripheral pulses with no evidence of peripheral edema and no calf tenderness noted. NEUROLOGIC patient is awake, alert and oriented -3. . - Labs CBC & Chem 7: 11/29/16 06:30 11/30/16 09:20 Labs: Abnormal Lab Results - Last 24 Hours (Table) 11/29/16 11/29/16 11/29/16 Range/Units 11:47 16:51 20:38 D-Dimer (<0.60) mg/L FEU Chloride (98-107) mmol/L BUN (7-17) mg/dL Creatinine (0.52-1.04) mg/dL Glucose (74-99) mg/dL POC Glucose (mg/dL) 215 H 162 H 165 H (75-99) mg/dL 11/30/16 11/30/16 11/30/16 Range/Units 06:15 09:20 09:20 D-Dimer 0.77 H (<0.60) mg/L FEU Chloride 109 H (98-107) mmol/L BUN 37 H (7-17) mg/dL Creatinine 1.58 H (0.52-1.04) mg/dL Glucose 127 H (74-99) mg/dL POC Glucose (mg/dL) 136 H (75-99) mg/dL Assessment and Plan (1) Chest pain Status: Acute (2) S/P cardiac cath Status: Acute (3) CAD (coronary artery disease) Status: Acute (4) Elevated troponin Status: Acute (5) Obesity Status: Acute (6) Hx of vaginal bleeding Status: Acute (7) Anemia Status: Acute (8) HTN (hypertension) Status: Acute (9) Hyperlipemia Status: Acute (10) Diabetes Status: Acute Plan: From cardiology's perspective, because of the symptoms of exertional shortness of breath, we will request a repeat chest x-ray be performed today along with d- dimer and BNP level. Patient did receive one dose of IV Lasix last evening. We will increase the patient's dose of Coreg for more optimal blood pressure control. Further recommendations will be based on these findings and the patient 's clinical course. DNP note has been reviewed, I agree with a documented findings and plan of care. Patient was seen and examined.
--- NOTE | 2016-11-30 11:39 | PN ---
DATE OF SERVICE: 11/29/2016 ATTENDING NOTE: This patient was seen and examined by me on 11/29/16. I reviewed the note of my nurse practitioner, Ms. Livingston. Discussed, agreed and additional finding as below. Patient admitted with chest pain, shortness of breath. [place] to have ( ) CHF. Also some COPD flareup. The patient had a cardiac cath. Found to be intermediate disease of the LAD, just for medical management. Sitting up with her . On examination, blood pressure 142/65. LUNGS: Mild wheezing. Decreased breath sounds. Mild edema. PSYCH: Alert and oriented x3. Sitting up in a chair. ASSESSMENT: 1. Coronary artery disease, status post cardiac cath with no further intervention for medical management. 2. Chronic obstructive pulmonary disease in an ex-smoker. 3. Chronic kidney disease, patient's creatinine 1.53. PLAN: Care was discussed with the patient and . Will check electrolytes in the morning. Hopefully, patient will be discharged in 24 hours.
[2016-11-30 11:46] LABS: Anisocytosis Slight; CH 25.6; CHCM 31.3; HCT 22.6 % (34.0-46.0); HDW 4.92; Hypochromasia Marked; MCH 25.5 pg (25.0-35.0); MCV 82.2 fL (80.0-100.0); Mean Platelet Volume 7.7; Poikilocytosis Marked; RBC 2.75 m/uL (3.80-5.40); RDW 18.1 % (11.5-15.5); WBC 6.2 k/uL (3.8-10.6)
--- NOTE | 2016-11-30 12:14 | NM ---
EXAMINATION TYPE: NM pul vent and perfuse DATE OF EXAM: 11/30/2016 COMPARISON: NONE HISTORY: Shortness of breath TECHNIQUE: Utilizing inhalation of 70.7 mCi Tc 99m DTPA aerosol and intravenous injection of 5.39 mC i of Tc 99m MAA, ventilation and perfusion images are acquired post injection in multiple projections . FINDINGS: Normal radiotracer distribution is noted in the lungs. There is no evidence of mismatched defects. IMPRESSION: Normal
[2016-11-30] MEDS ORDERED: FUROSEMIDE 10 MG/ML 4 ML VIAL IV STA (12:28)
--- NOTE | 2016-11-30 12:48 | PN ---
The patient is seen for followup for chronic kidney disease and acute kidney injury which has improved. Patient was maintained on IV fluids. She developed fluid overload. Patient received IV Lasix last night. She still states that occasionally she gets episodes of severe anxiety and shortness of breath. Chest x-ray was done this morning, which showed pulmonary venous congestion and small effusions. Patient is status post cardiac catheterization from yesterday, which showed patent previous coronary stents. On examination, blood pressure is 171/74, heart rate 80 per minute. She is afebrile. HEART: S1, S2. LUNGS: Bilateral breath sounds are heard. No crackles or wheezing. ABDOMEN: Soft, nontender. Lower extremities show no significant edema. WOOD CRAFTSMAN: Grossly intact. Labs show sodium 144, potassium 4.0, chloride 109, BUN 37, serum creatinine 1.58. Hemoglobin was 7.0 g/dL. ASSESSMENT: 1. Acute kidney injury on initial admission, currently improved. 2. Chronic kidney disease with renal function currently at baseline, [employer] stage III secondary to nephrosclerosis. 3. Fluid overload. Continue off of IV fluids. I will repeat another dose of IV Lasix. Patient also had a VQ scan done to work up the shortness of breath, which showed mismatch defects. 4. Acute non-ST elevation myocardial infarction on admission, status post cardiac catheterization which showed patent previous coronary stents. 5. Anemia with significant iron deficiency maintained on IV iron. 6. Hypertension, fair control. PLAN: Repeat another dose of IV Lasix today. Maintain patient on oral diuretics and repeat labs in a.m. Monitor the hemoglobin since it has dropped down to 7. Since the hemoglobin is now at 7, consider discontinuation of the heparin drip.
[2016-11-30 13:06] LABS: Glucose,Whole Blood 170 mg/dL (75-99)
[2016-11-30 17:25] LABS: Glucose,Whole Blood 175 mg/dL (75-99)
[2016-11-30 21:02] LABS: Glucose,Whole Blood 154 mg/dL (75-99)
[2016-11-30] MEDS: ATORVASTATIN 80 MG TAB PO SCH (21:44)
[2016-12-01] MEDS: ISOSORBIDE MONONITRATE ER 30 MG TAB.ER.24H PO SCH ×2 (00:07→08:51)
[2016-12-01 06:43] LABS: Glucose,Whole Blood 197 mg/dL (75-99)
[2016-12-01 06:54] LABS: Anisocytosis Slight; CH 25.5; HCT 23.1 % (34.0-46.0); HDW 4.59; Hypochromasia Marked; MCH 25.8 pg (25.0-35.0); MCHC 30.2 g/dL (31.0-37.0); MCV 85.4 fL (80.0-100.0); Mean Platelet Volume 7.7; Poikilocytosis Moderate; RDW 18.3 % (11.5-15.5); WBC 6.3 k/uL (3.8-10.6)
[2016-12-01 06:55] LABS: Calcium 8.9 mg/dL (8.4-10.2); Potassium 4.1 mmol/L (3.5-5.1)
[2016-12-01] MEDS: IPRATROPIUM-ALBUTEROL 3 ML NEB INHALATION SCH ×5 (07:07→20:04)
[2016-12-01] MEDS: CARVEDILOL 12.5 MG TAB PO SCH ×2 (07:49→17:34)
[2016-12-01] MEDS: INSULIN LISPRO (humaLOG) 300 UNIT/3 ML VIAL SQ SCH ×7 (07:49→21:04)
--- NOTE | 2016-12-01 08:37 | PN ---
DATE OF SERVICE: 11/30/2016 PRESENTING COMPLAINT: Short of breath. INTERVAL HISTORY: This patient presented with CHF exacerbations, some chest pain, COPD exacerbation is actually better. Also was set up for a V/Q scan earlier today. Cardiac cath did not show any new findings, put patient on medical management. Patient's breathing is actually better today. is at the bedside. Review of systems done for constitutional, cardiovascular, GI, pulmonary; relevant findings as above. Current medications are reviewed. On examination, temperature 98.6, pulse 88, respiratory rate 20, blood pressure 166/72, pulse ox 97% on 3 L. GENERAL APPEARANCE: Sitting up, not in distress. EYES: Pupils equal, conjunctivae normal. NECK: JVD not raised, mass not palpable. RESPIRATORY: Effort normal. LUNGS: Diminished breath sounds. Much less wheezing. CARDIOVASCULAR: First and second noted, minimal edema. ABDOMEN: Soft, nontender. Liver and spleen not palpable. PSYCHIATRY: Alert and oriented x3. Mood and affect normal. INVESTIGATIONS: White count 6.2, hemoglobin 7, potassium 4. BUN 37, creatinine 1.58. ASSESSMENT: 1. Acute on chronic congestive heart failure exacerbation from diastolic dysfunction, ejection fraction 55%. Now stabilized. 2. Acute chronic obstructive pulmonary disease exacerbation in an ex-smoker, improved. 3. Irregular vaginal bleeding, awaiting outpatient surgery. 4. Chronic diverticulosis. 5. Chronic gastritis and duodenal ectasia with history of argon plasma anticoagulation. 6. Essential hypertension. 7. ( ) weakness from old stroke. 8. Diabetes mellitus type 2, clinically on insulin. 9. Obesity, body mass index of 42. 10. Coronary artery disease with stent to left anterior descending coronary artery and right coronary artery. 11. Hyperlipidemia. 12. Fibromyalgia. 13. Primary osteoarthritis of multiple joints, bilaterally. 14. Urinary stress incontinence. 15. Depression, not otherwise specified. PLAN: Care was discussed at length with the patient and the , they were reassured. If patient remains stable, home tomorrow. Will check patient's oxygen status.
[2016-12-01] MEDS: INSULIN GLARGINE 100 UNIT/ML 10 ML VIAL SQ SCH ×2 (08:49→21:03)
[2016-12-01] MEDS: ALLOPURINOL 100 MG TAB PO SCH (08:50)
[2016-12-01] MEDS: amLODIPine 10 MG TAB PO SCH (08:50)
[2016-12-01] MEDS: FUROSEMIDE 20 MG TAB PO SCH (08:51)
[2016-12-01] MEDS: PANTOPRAZOLE 40 MG TABLET PO SCH (08:51)
[2016-12-01] MEDS ORDERED: ASPIRIN 81 MG CHEW PO SCH (09:00)
--- NOTE | 2016-12-01 10:16 | P.PN ---
Subjective Principal diagnosis: shortness of breath this is a pleasant 66-year-old female with known history of coronary artery disease, status post prior angioplasty,anemia, COPD, diabetes, hypertension, hyperlipidemia,chronic renal insufficiency, patient presented to the hospital with symptoms mainly of exertional shortness of breath with mild chest discomfort. She was noted to have abnormality in her troponin and for this reason was taken to the cardiac catheterization lab by Dr. Dacosta. Cardiac catheterization revealed patent stent in the proximal and mid right coronary artery, patent stent in the left main, mild disease involving the left circumflex, intermediate disease in the proximal LAD. Maximal medical therapy advised. Patient was having exertional shortness of breath yesterday, for this reason she was given a dose of IV Lasix by nephrology. She does state that overall her breathing seems improved today. Her oxygenation still drops into the 80s with a minimal exertion. Hemoglobin today is 7.0. She denies any chest pain. Objective - Vital Signs Vital signs: Vital Signs Temp 96.3 F L 12/01/16 03:38 Pulse 68 12/01/16 08:00 Resp 18 12/01/16 08:00 BP 146/63 12/01/16 08:00 Pulse Ox 97 12/01/16 08:00 Intake & Output 11/30/16 12/01/16 12/01/16 18:59 06:59 18:59 Intake Total 815 100 Output Total 700 400 425 Balance 115 -400 -325 Weight 104.5 kg Intake: IV 0 Sodium Chloride 0.9% 1, 0 000 ml @ 60 mls/hr IV . [id number] DUSTIN Rx#:[id number] Intake, IV Titration 125 Amount Sodium Chloride 0.9% 1, 0 000 ml @ 60 mls/hr IV . [id number] DUSTIN Rx#:[id number] Sodium Chloride 0.9% 1, 0 000 ml @ 75 mls/hr IV . [id number] DUSTIN Rx#:[id number] Sodium Chloride 0.9% 1, 0 000 ml As IV .STK-MED ONE Rx#:[id number] Sodium Ferric Gluconat- 125 Sucrose 125 mg In Sodium Chloride 0.9% 100 ml @ 100 mls/hr IVPB DAILY DUSTIN Rx#:[id number] Oral 690 100 Output: Urine 700 400 425 Other: Voiding Method Bedside Commode Bedside Commode Bedside Commode # Voids 2 1 1 - Exam PHYSICAL EXAMINATION: HEENT: Head is atraumatic, normocephalic. Pupils equal, round. Neck is supple. There is no elevated jugular venous pressure. HEART EXAMINATION: Heart S1, S2 normal. No murmur or gallop heard. CHEST EXAMINATION:Lungs are clear to auscultation . No chest wall tenderness is noted on palpation or with deep breathing. ABDOMEN: Soft, nontender. Bowel sounds are heard. No organomegaly noted. Right radial site clean and dry, good distal pulse. EXTREMITIES: 2+ peripheral pulses with no evidence of peripheral edema and no calf tenderness noted. NEUROLOGIC patient is awake, alert and oriented -3. . - Labs CBC & Chem 7: 12/01/16 06:21 12/01/16 06:21 Labs: Abnormal Lab Results - Last 24 Hours (Table) 11/30/16 11/30/16 11/30/16 Range/Units 09:20 09:20 12:33 RBC 2.75 L (3.80-5.40) m/uL Hgb 7.0 L* (11.4-16.0) gm/dL Hct 22.6 L (34.0-46.0) % MCHC (31.0-37.0) g/dL RDW 18.1 H (11.5-15.5) % Chloride 109 H (98-107) mmol/L BUN 37 H (7-17) mg/dL Creatinine 1.58 H (0.52-1.04) mg/dL Glucose 127 H (74-99) mg/dL POC Glucose (mg/dL) 170 H (75-99) mg/dL 11/30/16 11/30/16 12/01/16 Range/Units 17:16 21:00 06:18 RBC (3.80-5.40) m/uL Hgb (11.4-16.0) gm/dL Hct (34.0-46.0) % MCHC (31.0-37.0) g/dL RDW (11.5-15.5) % Chloride (98-107) mmol/L BUN (7-17) mg/dL Creatinine (0.52-1.04) mg/dL Glucose (74-99) mg/dL POC Glucose (mg/dL) 175 H 154 H 197 H (75-99) mg/dL 12/01/16 12/01/16 Range/Units 06:21 06:21 RBC 2.70 L (3.80-5.40) m/uL Hgb 7.0 L* (11.4-16.0) gm/dL Hct 23.1 L (34.0-46.0) % MCHC 30.2 L (31.0-37.0) g/dL RDW 18.3 H (11.5-15.5) % Chloride 109 H (98-107) mmol/L BUN 37 H (7-17) mg/dL Creatinine 1.65 H (0.52-1.04) mg/dL Glucose 179 H (74-99) mg/dL POC Glucose (mg/dL) (75-99) mg/dL Assessment and Plan (1) Chest pain Status: Acute (2) S/P cardiac cath Status: Acute (3) CAD (coronary artery disease) Status: Acute (4) Elevated troponin Status: Acute (5) Obesity Status: Acute (6) Hx of vaginal bleeding Status: Acute (7) Anemia Status: Acute (8) HTN (hypertension) Status: Acute (9) Hyperlipemia Status: Acute (10) Diabetes Status: Acute Plan: From cardiology's perspective, patient is stable from a cardiac standpoint. She may have her telemetry at discontinued. We will follow her now with you on an as-needed basis only, please don't hesitate to call with any questions. We will make her a follow-up appointment with Dr. Dacosta in the office. DNP note has been reviewed, I agree with a documented findings and plan of care. Patient was seen and examined.
--- NOTE | 2016-12-01 11:32 | P.PN ---
Subjective Patient is seen in follow-up for acute kidney injury on chronic kidney disease. Renal function is mildly worse today with creatinine at 1.65. Denies any active chest pain or shortness of breath. No vomiting or diarrhea. Oral intake is good. Admits to good urine output. Vital signs are stable. General: The patient appeared well nourished and normally developed. HEENT: Head exam is unremarkable. Neck is without jugular venous distension. LUNGS: Lungs are clear to auscultation and percussion. Breath sounds decreased. HEART: Rate and Rhythm are regular. First and second heart sounds normal. No murmurs, rubs or gallops. ABDOMEN: Abdominal exam reveals normal bowel sounds. Non-tender and non- distended. No evidence of peritonitis. EXTREMITITES: No clubbing, cyanosis, or edema. Objective - Vital Signs Vital signs: Vital Signs Temp 96.3 F L 12/01/16 03:38 Pulse 68 12/01/16 08:00 Resp 18 12/01/16 08:00 BP 146/63 12/01/16 08:00 Pulse Ox 86 L 12/01/16 09:30 Intake & Output 11/30/16 12/01/16 12/01/16 18:59 06:59 18:59 Intake Total 815 100 Output Total 700 400 425 Balance 115 -400 -325 Weight 104.5 kg Intake: IV 0 Sodium Chloride 0.9% 1, 0 000 ml @ 60 mls/hr IV . [id number] DUSTIN Rx#:[id number] Intake, IV Titration 125 Amount Sodium Chloride 0.9% 1, 0 000 ml @ 60 mls/hr IV . [id number] DUSTIN Rx#:[id number] Sodium Chloride 0.9% 1, 0 000 ml @ 75 mls/hr IV . [id number] DUSTIN Rx#:[id number] Sodium Chloride 0.9% 1, 0 000 ml As IV .STK-MED ONE Rx#:[id number] Sodium Ferric Gluconat- 125 Sucrose 125 mg In Sodium Chloride 0.9% 100 ml @ 100 mls/hr IVPB DAILY DUSTIN Rx#:[id number] Oral 690 100 Output: Urine 700 400 425 Other: Voiding Method Bedside Commode Bedside Commode Bedside Commode # Voids 2 1 1 - Labs CBC & Chem 7: 12/01/16 06:21 12/01/16 06:21 Labs: Abnormal Lab Results - Last 24 Hours (Table) 11/30/16 11/30/16 11/30/16 Range/Units 09:20 12:33 17:16 RBC 2.75 L (3.80-5.40) m/uL Hgb 7.0 L* (11.4-16.0) gm/dL Hct 22.6 L (34.0-46.0) % MCHC (31.0-37.0) g/dL RDW 18.1 H (11.5-15.5) % Chloride (98-107) mmol/L BUN (7-17) mg/dL Creatinine (0.52-1.04) mg/dL Glucose (74-99) mg/dL POC Glucose (mg/dL) 170 H 175 H (75-99) mg/dL 11/30/16 12/01/16 12/01/16 Range/Units 21:00 06:18 06:21 RBC 2.70 L (3.80-5.40) m/uL Hgb 7.0 L* (11.4-16.0) gm/dL Hct 23.1 L (34.0-46.0) % MCHC 30.2 L (31.0-37.0) g/dL RDW 18.3 H (11.5-15.5) % Chloride (98-107) mmol/L BUN (7-17) mg/dL Creatinine (0.52-1.04) mg/dL Glucose (74-99) mg/dL POC Glucose (mg/dL) 154 H 197 H (75-99) mg/dL 12/01/16 Range/Units 06:21 RBC (3.80-5.40) m/uL Hgb (11.4-16.0) gm/dL Hct (34.0-46.0) % MCHC (31.0-37.0) g/dL RDW (11.5-15.5) % Chloride 109 H (98-107) mmol/L BUN 37 H (7-17) mg/dL Creatinine 1.65 H (0.52-1.04) mg/dL Glucose 179 H (74-99) mg/dL POC Glucose (mg/dL) (75-99) mg/dL Assessment and Plan Plan: Assessment: #1. Nonoliguric acute kidney injury mostly prerenal due to diuresis. Creatinine a little worse today at 1.65. #2. Chronic kidney disease stage III secondary to diabetic kidney disease and nephrosclerosis with baseline creatinine in the range of 1.3-1.5. #3. Status post cardiac catheterization on November 29 with no interventions. #4. Volume overload. Improved. #5. Anemia. Hemoglobin 7.0 today. Iron deficiency noted. Status post 3 doses of IV iron. Plan: Increase Lasix to 40 mg once daily. Patient to receive 1 unit of packed red blood cell transfusion today. Avoid nephrotoxic agents and hypotensive episodes. Potential discharge today. She will need to follow-up as an outpatient in the next 1-2 weeks.
[2016-12-01 12:03] LABS: Glucose,Whole Blood 265 mg/dL (75-99)
--- NOTE | 2016-12-01 12:18 | P.PN ---
Progress Note - Text DATE OF SERVICE: 11/30/2016 PRESENTING COMPLAINT: Shortness of breath INTERVAL HISTORY: This patient was admitted with chest pain and shortness of breath found to have an acute exacerbation of congestive heart failure. Today patient has shortness of breath with minimal exertion. Patient therefore had a chest x-ray, and a VQ scan with concerns for pulmonary embolism. On examination patient was sitting on the bed recovered from the shortness of breath. Patient tolerating her diet , unable to walk long distances without becoming short of breath. REVIEW OF SYSTEMS: Done for constitutional ,cardiovascular, GI, pulmonary with relevant findings as above. CURRENT MEDICATIONS DuoNeb, Zyloprim, Norvasc, Coreg, Lasix. PHYSICAL EXAM: VITAL SIGNS: GENERAL APPEARANCE: Average build. Lying in bed, not in distress. EYES: Pupils equal. Conjunctiva normal. NECK: JVD unable to assess. Mass not palpable. RESPIRATORY: Respiratory effort is labored. Lungs diminished bilaterally scattered crackles heard throughout. CARDIOVASCULAR: First and second sounds normal. No edema. ABDOMEN: Soft. Liver and spleen not palpable. No tenderness. No mass palpable. PSYCHIATRY: Alert and oriented x3. Mood and affect anxious appearing . NEUROLOGICAL: Cranial nerves grossly intact. No facial asymmetry. Power and sensation grossly intact INVESTIGATIONS: Hemoglobin 7.0, platelet count 192, sodium 144, chloride 109, BUNs 37, creatinine 1.58. BNP 1580. Chest x-ray persistent cardiac medically with pulmonary venous congestion as well as small effusions. VQ scan normal. ASSESSMENT: 1. Coronary artery disease, status post cardiac cath with no further intervention for medical management. Ejection fraction 55% 2. Chronic obstructive pulmonary disease in an ex-smoker. 3. Chronic kidney disease, patient's creatinine 1.58. 4. Recurrent vaginal bleeding from outpatient surgery. 5. Chronic diverticulosis. 6. Chronic gastritis and duodenal ectasia with history of argon plasma coagulation. 7. Essential hypertension. 8. Right arm weakness from old stroke. 9. Diabetes mellitus type 2, chronically on insulin. 10. Obesity body mass index of 42. 11. Coronary artery disease with stent to the LAD and right coronary artery. 12. Hyperlipidemia. 13. Her myalgia. 14. Osteoarthritis of multiple joints, bilaterally. 15. Previous history of stress incontinence. 16. Depression, not otherwise specified. PLAN: Patient's shortness of breath likely due to fluid overload, received additional dose of IV Lasix. Coreg was increased per cardiology recommendations for better blood pressure management. Patient's hemoglobin dropped to 7.0 today we' ll consider discontinuing heparin drip. We'll continue to monitor closely FIELD CROPS HARVEST MACHINE OPERATOR statement: Patient was seen and examined by nurse practitioner Connie Livingston in all elements of the case discussed with attending is Dr. Aguila
[2016-12-01] MEDS ORDERED: FUROSEMIDE 40 MG TAB PO SCH (12:30)
--- NOTE | 2016-12-01 15:10 | P.PN ---
Progress Note - Text DATE OF SERVICE: 11/30/2016 PRESENTING COMPLAINT: Shortness of breath INTERVAL HISTORY: This patient was admitted with chest pain and shortness of breath found to have an acute exacerbation of congestive heart failure. Today patient has shortness of breath with minimal exertion. Patient therefore had a chest x-ray, and a VQ scan with concerns for pulmonary embolism. On examination patient was sitting on the bed recovered from the shortness of breath. Patient tolerating her diet , unable to walk long distances without becoming short of breath. REVIEW OF SYSTEMS: Done for constitutional ,cardiovascular, GI, pulmonary with relevant findings as above. CURRENT MEDICATIONS DuoNeb, Zyloprim, Norvasc, Coreg, Lasix. PHYSICAL EXAM: VITAL SIGNS: GENERAL APPEARANCE: Average build. Lying in bed, not in distress. EYES: Pupils equal. Conjunctiva normal. NECK: JVD unable to assess. Mass not palpable. RESPIRATORY: Respiratory effort is labored. Lungs diminished bilaterally scattered crackles heard throughout. CARDIOVASCULAR: First and second sounds normal. No edema. ABDOMEN: Soft. Liver and spleen not palpable. No tenderness. No mass palpable. PSYCHIATRY: Alert and oriented x3. Mood and affect anxious appearing . NEUROLOGICAL: Cranial nerves grossly intact. No facial asymmetry. Power and sensation grossly intact INVESTIGATIONS: Hemoglobin 7.0, platelet count 192, sodium 144, chloride 109, BUNs 37, creatinine 1.58. BNP 1580. Chest x-ray persistent cardiac medically with pulmonary venous congestion as well as small effusions. VQ scan normal. ASSESSMENT: 1. Acute on chronic congestive heart failure exacerbation from diastolic dysfunction secondary to coronary artery disease ejection fraction 55%. Coronary artery disease, status post cardiac cath with no further intervention required. 2. Acute Chronic obstructive pulmonary disease in an ex-smoker, improving 3. Chronic kidney disease, patient's creatinine 1.58. 4. Menorrhagia, pending outpatient surgery. 5. Chronic diverticulosis. 6. Chronic gastritis and duodenal ectasia with history of argon plasma coagulation. 7. Essential hypertension. 8. Right arm weakness from old stroke. 9. Diabetes mellitus type 2, chronically on insulin. 10. Obesity body mass index of 42. 11. Coronary artery disease with stent to the LAD and right coronary artery. 12. Hyperlipidemia. 13. Fibromyalgia. 14. Primary Osteoarthritis of multiple joints, bilaterally. 15. Urinary stress incontinence. 16. Depression, not otherwise specified. 17. Acute hypoxic respiratory failure multifactorial, requiring home O2. 18. Acute on chronic blood loss anemia secondary to menorrhagia. PLAN: Patient's shortness of breath likely due to fluid overload, received additional dose of IV Lasix. Coreg was increased per cardiology recommendations for better blood pressure management. Patient's hemoglobin dropped to 7.0 today patient is not symptomatic. we'll consider discontinuing heparin drip. We'll continue to monitor closely PHOTOLETTERING MACHINE OPERATOR statement: Patient was seen and examined by nurse practitioner Connie Livingston in all elements of the case discussed with attending is Dr. Aguila
--- NOTE | 2016-12-01 15:36 | P.DS ---
Providers Date of admission: 11/26/16 20:39 Attending physician: Amadeo Aguila Consults: 11/26/16 20:39 Consult Physician Urgent Consulting Provider: Timothy Matos Consult Reason/Comments: Elevated troponin Do you want consulting provider notified?: Already Contacted 11/27/16 08:49 Consult Physician Urgent Consulting Provider: Leeroy Reyna Consult Reason/Comments: Elevated Labs Do you want consulting provider notified?: Yes Primary care physician: Tyler Hermosillo [place] [facility] Course: FINAL DIAGNOSES: 1. Acute on chronic congestive heart failure exacerbation from diastolic dysfunction secondary to coronary artery disease ejection fraction 55%. Coronary artery disease, status post cardiac cath with no further intervention required. 2. Acute Chronic obstructive pulmonary disease in an ex-smoker, improving 3. Chronic kidney disease, patient's creatinine 1.58. 4. Menorrhagia, pending outpatient surgery. 5. Chronic diverticulosis. 6. Chronic gastritis and duodenal ectasia with history of argon plasma coagulation. 7. Essential hypertension. 8. Right arm weakness from old stroke. 9. Diabetes mellitus type 2, chronically on insulin. 10. Obesity body mass index of 42. 11. Coronary artery disease with stent to the LAD and right coronary artery. 12. Hyperlipidemia. 13. Fibromyalgia. 14. Primary Osteoarthritis of multiple joints, bilaterally. 15. Urinary stress incontinence. 16. Depression, not otherwise specified. 17. Acute hypoxic respiratory failure multifactorial, requiring home O2. 18. Acute on chronic blood loss anemia secondary to menorrhagia. HOSPITAL COURSE: Patient was admitted with chest pain and shortness of breath found to have an acute exacerbation of congestive heart failure. Received Lasix, cardiology consult, and cardiac catheterization was performed with no intervention necessary. Exertional dyspnea noted concerns for PE, VQ scan completed with no mismatch defect. Resting and active pulse ox evaluated patient found to desaturate into the 80s with activity. Will require home O2. BUN 37 and creatinine 1.65 nephrology consulted continue Lasix. Hemoglobin 7.0 patient is not symptomatic however, patient due for surgery as an outpatient and has vaginal bleeding will transfuse 1 unit of blood prior to discharge with Lasix to be given prior to the unit of blood. Overall, patient improving, breathing easier today, tolerating her diet, ambulating in the room with assistance, no chest pain. Therefore patient is ready for discharge. PHYSICAL EXAM: RESPIRATORY: Breath sounds diminished bilaterally, effort mildly labored diffuse crackles heard throughout, desaturates on minimal exertion requiring home oxygen CARDIOVASCULAR: First and second sounds noted, moderate edema Patient seen and examined by nurse practitioner Connie Livingston in all elements of the case discussed with attending Dr. Aguila. Procedures: Cardiac catheterization, VQ scan Patient Condition at Discharge: Stable Plan - Discharge Summary New Discharge Prescriptions: New Ipratropium-Albuterol Nebulize [Duoneb 0.5 mg-3 mg/3 ml Soln] 3 ml INHALATION RT-QID #120 neb Isosorbide Mononitrate ER [Imdur] 30 mg PO DAILY #30 tab Continue Atorvastatin [Lipitor] 80 mg PO HS #30 tab Pantoprazole Sodium [Protonix] 40 mg PO DAILY #30 tablet. Aspirin 81 mg PO DAILY chew amLODIPine [Norvasc] 10 mg PO DAILY #30 tab Nitroglycerin Sl Tabs [Nitrostat] 0.4 mg SUBLINGUAL Q5M PRN PRN Reason: Chest Pain Insulin Aspart [NovoLOG] 20 unit SQ AC-TID Carvedilol [Coreg] 25 mg PO BID Nystatin 100,000 Unit/gm Powd [Mycostatin Powder] 1 applic TOPICAL BID PRN PRN Reason: Skin Irritation Furosemide [Lasix] 40 mg PO BID LORazepam [Ativan] 0.5 mg PO TID PRN PRN Reason: Anxiety Allopurinol [Zyloprim] 150 mg PO DAILY Albuterol Sulfate [Proventil Hfa] 2 puff INHALATION RT-Q4H PRN #0 PRN Reason: Shortness Of Breath Ergocalciferol [Vitamin D2 (DRISDOL)] 50,000 unit PO FR Changed Insulin Glargine [Lantus] 70 unit SQ HS #0 Discontinued Insulin Glargine [Lantus] 10 unit SQ QAM Meclizine [Antivert] 12.5 mg PO Q6H PRN PRN Reason: Nausea/Vertigo Discharge Medication List Atorvastatin [Lipitor] 80 mg PO HS #30 tab 06/16/15 [Rx] Pantoprazole Sodium [Protonix] 40 mg PO DAILY #30 tablet. 06/21/15 [Rx] Aspirin 81 mg PO DAILY chew 08/28/15 [Rx] amLODIPine [Norvasc] 10 mg PO DAILY #30 tab 07/20/16 [Rx] Carvedilol [Coreg] 25 mg PO BID 08/07/16 [History] Insulin Aspart [NovoLOG] 20 unit SQ AC-TID 08/07/16 [History] Nitroglycerin Sl Tabs [Nitrostat] 0.4 mg SUBLINGUAL Q5M PRN 08/07/16 [History] Nystatin 100,000 Unit/gm Powd [Mycostatin Powder] 1 applic TOPICAL BID PRN 08/26 [History] Furosemide [Lasix] 40 mg PO BID 09/06/16 [History] Allopurinol [Zyloprim] 150 mg PO DAILY 11/23/16 [History] LORazepam [Ativan] 0.5 mg PO TID PRN 11/23/16 [History] Albuterol Sulfate [Proventil Hfa] 2 puff INHALATION RT-Q4H PRN #0 11/25/16 [Rx] Ergocalciferol [Vitamin D2 (DRISDOL)] 50,000 unit PO FR 11/26/16 [History] Insulin Glargine [Lantus] 70 unit SQ HS #0 12/01/16 [Rx] Ipratropium-Albuterol Nebulize [Duoneb 0.5 mg-3 mg/3 ml Soln] 3 ml INHALATION RT -QID #120 neb 12/01/16 [Rx] Isosorbide Mononitrate ER [Imdur] 30 mg PO DAILY #30 tab 12/01/16 [Rx] Follow up Appointment(s)/Referral(s): Bernardo Dacosta MD [STAFF PHYSICIAN] - 12/09/16 4:15 pm [facility], [NON-STAFF] - Tyler Hermosillo DO [Primary Care Provider] - 12/02/16 3:00 pm Patient Instructions/Handouts: Myocardial Infarction (DC), Using Oxygen at Home (DC), COPD (Chronic Obstructive Pulmonary Disease) (DC), Cardiac Rehabilitation (DC), After Radial Heart Catheterization (GEN) Activity/Diet/Wound Care/Special Instructions: home Fio2 - 2l Discharge Disposition: HOME SELF-CARE
[2016-12-01 17:10] LABS: Glucose,Whole Blood 218 mg/dL (75-99)
[2016-12-01 18:49] VITALS: RESP 18
[2016-12-01 21:01] LABS: Glucose,Whole Blood 145 mg/dL (75-99)
[2016-12-01] MEDS: ATORVASTATIN 80 MG TAB PO SCH (21:04)
[2016-12-01 21:34] VITALS: BP 156/78; PULSE 67; TEMP 97.6
[2016-12-02] MEDS ORDERED: ERGOCALCIFEROL 50,000 UNIT CAP PO SCH (09:00)
--- NOTE | 2016-12-02 21:23 | DS ---
DATE OF ADMISSION: 11/26/2016 DATE OF DISCHARGE: 12/01/2016 Patient was seen and examined by me earlier today. I reviewed the note of discharge summary of my nurse practitioner, Ms. Livingston. Discussion additional findings below. Patient admitted with shortness of breath, felt to be CHF exacerbation and also had COPD exacerbation. Did undergo cardiac catheterization. No further intervention. Because hemoglobin was 7, given a unit of blood as she constantly drops hemoglobin from vaginal bleeding. Care was discussed in detail with the patient's , also discussed with Dr. Reyna from nephrology. Patient is to go on 40 mg twice a day of Lasix. The patient is otherwise stable to go for surgery. On exam, lungs decreased breath sounds. CARDIOVASCULAR: First and second sounds normal. Patient needs home oxygen. More details in my nurse practitioner's notes.
== END 2016-12-01 22:00 | disposition home health service (06) | DRG 280 ==
LOC: EC 17:27 → 6SEL 20:39
PROVIDERS: ADMIT Hospitalist; ATTEND Hospitalist
PROC: B2111ZZ Fluoroscopy of Multiple Coronary Arteries using Low Osmolar Contrast (ICD-10-PCS; 2016-11-29)
PROC: 4A023N7 Measurement of Cardiac Sampling and Pressure, Left Heart, Percutaneous Approach (ICD-10-PCS; principal; 2016-11-29 09:08)
PROC: 30233N1 Transfusion of Nonautologous Red Blood Cells into Peripheral Vein, Percutaneous Approach (ICD-10-PCS; 2016-12-01)
DX: I21.4 Non-ST elevation (NSTEMI) myocardial infarction (principal); J96.01 Acute respiratory failure with hypoxia; I50.33 Acute on chronic diastolic (congestive) heart failure; N17.9 Acute kidney failure, unspecified; E11.21 Type 2 diabetes mellitus with diabetic nephropathy; D62 Acute posthemorrhagic anemia; I27.2 Other secondary pulmonary hypertension; E11.22 Type 2 diabetes mellitus with diabetic chronic kidney disease; Z68.41 Body mass index [BMI] 40.0-44.9, adult; I69.351 Hemiplegia and hemiparesis following cerebral infarction affecting right dominant side; I13.0 Hypertensive heart and chronic kidney disease with heart failure and stage 1 through stage 4 chronic kidney disease, or unspecified chronic kidney disease; J44.1 Chronic obstructive pulmonary disease with (acute) exacerbation; Z99.81 Dependence on supplemental oxygen; E78.5 Hyperlipidemia, unspecified; I25.10 Atherosclerotic heart disease of native coronary artery without angina pectoris; E11.319 Type 2 diabetes mellitus with unspecified diabetic retinopathy without macular edema; N26.1 Atrophy of kidney (terminal); I34.0 Nonrheumatic mitral (valve) insufficiency; I36.1 Nonrheumatic tricuspid (valve) insufficiency; N92.0 Excessive and frequent menstruation with regular cycle; N18.3 Chronic kidney disease, stage 3 (moderate); D63.1 Anemia in chronic kidney disease; T50.2X5A Adverse effect of carbonic-anhydrase inhibitors, benzothiadiazides and other diuretics, initial encounter; F32.9 Major depressive disorder, single episode, unspecified; M79.7 Fibromyalgia; M19.91 Primary osteoarthritis, unspecified site; K57.90 Diverticulosis of intestine, part unspecified, without perforation or abscess without bleeding; K29.50 Unspecified chronic gastritis without bleeding; I25.2 Old myocardial infarction; H26.9 Unspecified cataract; M54.5 Low back pain; K58.9 Irritable bowel syndrome, unspecified; E66.01 Morbid (severe) obesity due to excess calories; G43.909 Migraine, unspecified, not intractable, without status migrainosus; M19.90 Unspecified osteoarthritis, unspecified site; N39.3 Stress incontinence (female) (male); R53.1 Weakness; M62.431 Contracture of muscle, right forearm; H40.9 Unspecified glaucoma; Z87.891 Personal history of nicotine dependence; Z79.899 Other long term (current) drug therapy; Z79.82 Long term (current) use of aspirin; Z79.4 Long term (current) use of insulin; Z95.5 Presence of coronary angioplasty implant and graft; Z80.0 Family history of malignant neoplasm of digestive organs; Z99.3 Dependence on wheelchair; Z85.42 Personal history of malignant neoplasm of other parts of uterus; Z88.5 Allergy status to narcotic agent; Z88.8 Allergy status to other drugs, medicaments and biological substances; Z92.3 Personal history of irradiation; Z87.01 Personal history of pneumonia (recurrent); Z87.19 Personal history of other diseases of the digestive system; Z92.21 Personal history of antineoplastic chemotherapy; Z87.440 Personal history of urinary (tract) infections; Z87.11 Personal history of peptic ulcer disease; Z90.49 Acquired absence of other specified parts of digestive tract; Z86.718 Personal history of other venous thrombosis and embolism; Z82.3 Family history of stroke; Z82.49 Family history of ischemic heart disease and other diseases of the circulatory system; Z83.79 Family history of other diseases of the digestive system; Z81.1 Family history of alcohol abuse and dependence
CPT/HCPCS: 36415; 71020; 76770; 78582; 80048; 80053; 80061; 82550; 82553; 82570; 83036; 83540; 83550; 83735; 83880; 84156; 84484; 85025; 85027; 85379; 85610; 85730; 86850; 86870; 86880; 86900; 86901; 86902; 86920; 93005; 93454; 94640; 96365; 96376; 99285

== ENCOUNTER 2016-12-03 07:05 | Inpatient (IN) | payer MEDICARE ==
[~2016-12-03 07:05] MED LIST: SODIUM CHLORIDE 0.9% 2,000 ML IV ONE
[2016-12-03] MEDS ORDERED: KETAMINE 10 MG/ML 20 ML VIAL IV STA (07:24)
[2016-12-03] MEDS ORDERED: PROPOFOL 500 MG in EMPTY BAG 1 BAG IV STA (07:36)
[2016-12-03] MEDS ORDERED: PROPOFOL 10 MG/ML 50 ML VIAL IV STA (07:39)
[2016-12-03] MEDS ORDERED: PROPOFOL 10 MG/ML 100 ML VIAL IV STA (07:39)
[2016-12-03] MEDS ORDERED: NOREPINEPHRIN 4 MG-0.9% NS PMX 4 MG/250 ML ML IV SCH (07:45)
[2016-12-03] MEDS ORDERED: SODIUM CHLORIDE 0.9% 1,000 ML IV ONE (08:00)
[2016-12-03 08:24] LABS: Anisocytosis Slight; Basophils # (A) 0.1 k/uL (0-0.2); Basophils % (A) 1 %; CH 26.1; CHCM 29.9; Eosinophils # (A) 0.4 k/uL (0-0.7); Eosinophils % (A) 3 %; HDW 4.83; Hypochromasia Marked; Luc # (Auto) 0.39; Luc % (Auto) 3; Lymphocytes # (A) 3.7 k/uL (1.0-4.8); Lymphocytes % (A) 24 %; MCH 26.4 pg (25.0-35.0); MCHC 30.1 g/dL (31.0-37.0); MCV 87.6 fL (80.0-100.0); Mean Platelet Volume 7.3; Monocytes # (A) 0.6 k/uL (0-1.0); Monocytes % (A) 4 %; Neutrophils # (A) 10.3 k/uL (1.3-7.7); Neutrophils % (A) 66 %; Poikilocytosis Marked; RBC 3.54 m/uL (3.80-5.40); RDW 18.2 % (11.5-15.5); WBC 15.5 k/uL (3.8-10.6); WBC (Perox) 15.76
[2016-12-03 08:28] LABS: ABG PCO2 90 mmHg (35-45); ABG PH 7.03 (7.35-7.45)
[2016-12-03 08:29] LABS: ABG Base Excess -6.7 mmol/L; ABG HCO3 23 mmol/L (21-25); ABG PO2 116 mmHg (83-108); ABG TCO2 26 mmol/L (19-24)
[2016-12-03 08:35] LABS: Calcium 8.4 mg/dL (8.4-10.2); Potassium 4.4 mmol/L (3.5-5.1); Total Bilirubin 0.7 mg/dL (0.2-1.3); Total Protein 5.5 g/dL (6.3-8.2)
[2016-12-03 08:36] LABS: HGB 9.3 gm/dL (11.4-16.0)
[2016-12-03 08:54] LABS: INR 1.2 (<1.1); Partial Thromboplastin Time 25.8 sec (22.0-30.0)
[2016-12-03 09:06] LABS: Creatine Kinase MB 1.2 ng/mL (0.0-2.4); Troponin I 0.019 ng/mL (0.000-0.034)
--- NOTE | 2016-12-03 09:06 | XR ---
EXAMINATION TYPE: XR chest 1V portable DATE OF EXAM: 12/03/2016 COMPARISON: Chest x-ray from 3 days ago. HISTORY: Unresponsive status post intubation. TECHNIQUE: Single AP portable frontal supine view of the chest is obtained. FINDINGS: There is new endotracheal tube at is satisfactory in position between clavicular margin in aortic knob approximately 5 cm above the denise. There is new orogastric tube projecting below left h emidiaphragm. There is stable cardiomegaly with small bilateral pleural effusions. There is new bilat eral opacities likely reflecting edema and/or less likely infiltrates. No pneumothorax is seen bilate rally. IMPRESSION: 1. New ET and OGT are satisfactory in position. 2. New moderate to severe bilateral perihilar opacities favoring edema, background of cardiomegaly an d small bilateral pleural effusions redemonstrated. Consider CHF exacerbation or developing ARDS.
--- NOTE | 2016-12-03 09:21 | ED ---
CPR HPI - General Chief Complaint: Cardiac Arrest/CPR Stated Complaint: cardiac arrest Source: EMS Mode of arrival: EMS Limitations: no limitations - History of Present Illness Initial Comments: According to the she woke up this morning short winded him a she was some given oxygen 2 rate at home just a few days ago but still her O2 sat was in mid 80s they called the ambulance once EMS got there they noticed that point shortness of breath was getting extremely worse, to the point that she stopped breathing and soon after she lost her pulse in the embolus crew started the CPR when she arrived to the ER she had the chest compressions ongoing. CPR was continued in the ER for about 10 minutes she got up epinephrine in the meantime i/o was established in the ER later we had another IV site i/o with the embolus crew that stopped working that was the intraosseous in the left proximal tibia. He was being bagged by EMS on arrival and she was totally unresponsive - Related Data Home Medications Medication Instructions Recorded Confirmed Carvedilol [Coreg] 25 mg PO BID 08/07/16 11/26/16 Insulin Aspart [NovoLOG] 20 unit SQ AC-TID 08/07/16 11/26/16 Nitroglycerin Sl Tabs [Nitrostat] 0.4 mg SUBLINGUAL Q5M PRN 08/07/16 11/26/16 Nystatin 100,000 Unit/gm Powd 1 applic TOPICAL BID PRN 08/26/16 11/26/16 [Mycostatin Powder] Furosemide [Lasix] 40 mg PO BID 09/06/16 11/26/16 Allopurinol [Zyloprim] 150 mg PO DAILY 11/23/16 11/26/16 LORazepam [Ativan] 0.5 mg PO TID PRN 11/23/16 11/26/16 Ergocalciferol [Vitamin D2 50,000 unit PO FR 11/26/16 11/26/16 (DRISDOL)] Previous Rx's Medication Instructions Recorded Atorvastatin [Lipitor] 80 mg PO HS #30 tab 06/16/15 Pantoprazole Sodium [Protonix] 40 mg PO DAILY #30 tablet.dr 06/21/15 Aspirin 81 mg PO DAILY chew 08/28/15 amLODIPine [Norvasc] 10 mg PO DAILY #30 tab 07/20/16 Albuterol Sulfate [Proventil Hfa] 2 puff INHALATION RT-Q4H PRN #0 11/25/16 Insulin Glargine [Lantus] 70 unit SQ HS #0 12/01/16 Ipratropium-Albuterol Nebulize 3 ml INHALATION RT-QID #120 neb 12/01/16 [Duoneb 0.5 mg-3 mg/3 ml Soln] Isosorbide Mononitrate ER [Imdur] 30 mg PO DAILY #30 tab 12/01/16 Allergies Allergy/AdvReac Type Severity Reaction Status Date / Time hydralazine Allergy Severe Anaphylaxis Verified 12/03/16 07:44 codeine AdvReac Severe Verified 12/03/16 07:44 Sedation hydrocodone AdvReac Severe Verified 12/03/16 07:44 Sedation lisinopril AdvReac Cough Verified 12/03/16 07:44 Review of Systems ROS Statement: Those systems with pertinent positive or pertinent negative responses have been documented in the HPI. ROS Other: All systems not noted in ROS Statement are negative. Past Medical History Past Medical History: Asthma, Cancer, Heart Failure, COPD, CVA/TIA, Diabetes Mellitus, Eye Disorder, Fibromyalgia, GI Bleed, Hyperlipidemia, Hypertension, Myocardial Infarction (NE), Osteoarthritis (OA), Pneumonia Additional Past Medical History / Comment(s): anemia, possible uterine lesion/ cancer (pt has hx of uterine cancer tx with radiation), cystitis and vaginal bleeding. 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 Last Myocardial Infarction Date:: 06/12/15 History of Any Multi-Drug Resistant Organisms: None Reported Past Surgical History: Cholecystectomy, Heart Catheterization, Heart Catheterization With Stent Additional Past Surgical History / Comment(s): 06/12/15 Cardiac cath, 06/15/15 PTCA with stent mid L main, D&C X2, YRS AGO HAD A DEVICE IN FOR RADIATION TX FOR UTERINE CA THAT WAS SINCE REMOVED.EGD/COLONOSCOPY.02/18/16 heart cath 3 stents to rca Past Anesthesia/Blood Transfusion Reactions: Motion Sickness Additional Past Anesthesia/Blood Transfusion Reaction / Comment(s): CLAUSTROPHOBIA. Pt has had blood transfusion in past-no reaction to blood Date of Last Stent Placement:: 02/18/16 Past Psychological History: Anxiety, Depression Additional Psychological History / Comment(s): Pt resides with her spouse. She is basically wheel chair bound most of the time for the past several yrs. She at times ambulates with assistance or pushes her wheelchair. She feeds herself. She has a supportive family. She has a sister that helps with her bathing and her олег and spouse will help with her medication. Smoking Status: Former smoker Past Alcohol Use History: None Reported Additional Past Alcohol Use History / Comment(s): STARTED SMOKING AGE 20, STOPPED SMOKING - PPD BUT WOULD BURN HALF OUT IN TIEN TRAY Past Drug Use History: None Reported - Past Family History Father Additional Family Medical History / Comment(s): WAS A DRINKER WHEN YOUNGER , LOST AN ARM IN THE SERVICE, PANCREATITIS, LIVER CANCER- from at age 57yrs. Mother Family Medical History: CVA/TIA Additional Family Medical History / Comment(s): HEART PROBLEMS, STARTED DRINKING AFTER OF HER , she of a ruptured liver at age 59 yrs. General Exam - General Exam Comments Initial Comments: General: The patient is on unresponsive Skin: Skin is dry and pale Eye: Pupils are reactive to light. Ears, nose, mouth and throat: Noticed some blood in the both nostrils Neck: The neck is supple Cardiovascular: Nicole there was no pulse Respiratory: To auscultation bilateral, noticed some air exchange with the bagging Gastrointestinal: Soft, non-distended, abdomen is distended most probably bagging her Back: There is no obvious deformity. Musculoskeletal: No obvious deformity noticed of upper or lower extremities, no signs of trauma Neurological: He is unresponsive Psychiatric: Not able to assess her. Limitations: no limitations Course Vital Signs 12/03/16 12/03/16 12/03/16 07:19 07:24 07:28 Pulse Rate 91 86 91 Respiratory 12 12 Rate Blood Pressure 252/114 227/89 O2 Sat by Pulse 91 L 100 Oximetry 12/03/16 12/03/16 12/03/16 07:32 07:41 07:45 Pulse Rate 81 77 65 Respiratory 14 14 14 Rate Blood Pressure 185/78 191/103 98/46 O2 Sat by Pulse 99 98 95 Oximetry 12/03/16 12/03/16 12/03/16 07:47 07:51 08:04 Pulse Rate 63 63 65 Respiratory 14 14 14 Rate Blood Pressure 103/61 97/46 114/52 O2 Sat by Pulse 95 96 97 Oximetry 12/03/16 12/03/16 12/03/16 08:07 08:12 08:15 Pulse Rate 64 65 68 Respiratory 14 14 14 Rate Blood Pressure 99/55 114/44 108/48 O2 Sat by Pulse 97 97 98 Oximetry 12/03/16 12/03/16 12/03/16 08:19 08:23 08:27 Pulse Rate 68 70 72 Respiratory 14 14 14 Rate Blood Pressure 83/42 119/49 114/53 O2 Sat by Pulse 98 97 96 Oximetry 12/03/16 08:32 Pulse Rate 68 Respiratory 14 Rate Blood Pressure 118/53 O2 Sat by Pulse 97 Oximetry Isn't has a respiratory failure, patient was intubated 7.5 tube was used bladder scope was used as well placement was confirmed with the bilateral auscultation as well as glidodoscope and direct visualization of the vocal cords. Procedures - Central Line Placement Right Femoral Consent Obtained: emergent situation Time Out Performed: Yes Patient Placed on Monitor/Pulse Ox: Yes Prep: mask, gown, gloves Central Line Prep: Povidone-Iodine 1% Local Anesthesia Used: Lidocaine 1% Amount of Anesthesia Used (mls): 4 Ultrasound Used for Placement: No Central Line Lumen Inserted: triple Bloods Obtained for Lab: No Central Line Position: good blood return Dressing Applied: Tegaderm Post Procedure X-Ray: other Patient Tolerated Procedure: well Complications: none (Right femoral central line was started to the ER ) Medical Decision Making - Lab Data Result diagrams: 12/03/16 07:30 12/03/16 07:30 Lab Results 12/03/16 12/03/16 12/03/16 Range/Units 07:30 07:30 07:30 WBC 15.5 H (3.8-10.6) k/uL RBC 3.54 L (3.80-5.40) m/uL Hgb 9.3 L D (11.4-16.0) gm/dL Hct 31.0 L (34.0-46.0) % MCV 87.6 (80.0-100.0) fL MCH 26.4 (25.0-35.0) pg MCHC 30.1 L (31.0-37.0) g/dL RDW 18.2 H (11.5-15.5) % Plt Count 266 (150-450) k/uL Neutrophils % 66 % Lymphocytes % 24 % Monocytes % 4 % Eosinophils % 3 % Basophils % 1 % Neutrophils # 10.3 H (1.3-7.7) k/uL Lymphocytes # 3.7 (1.0-4.8) k/uL Monocytes # 0.6 (0-1.0) k/uL Eosinophils # 0.4 (0-0.7) k/uL Basophils # 0.1 (0-0.2) k/uL Hypochromasia Marked Poikilocytosis Marked Anisocytosis Slight PT (9.0-12.0) sec INR (<1.1) APTT (22.0-30.0) sec Sample Site ABG pH (7.35-7.45) ABG pCO2 (35-45) mmHg ABG pO2 (83-108) mmHg ABG HCO3 (21-25) mmol/L ABG Total CO2 (19-24) mmol/L ABG O2 Saturation (94-97) % ABG Base Excess mmol/L FiO2 % Sodium 145 (137-145) mmol/L Potassium 4.4 (3.5-5.1) mmol/L Chloride 108 H (98-107) mmol/L Carbon Dioxide 22 (22-30) mmol/L Anion Gap 15 mmol/L BUN 40 H (7-17) mg/dL Creatinine 1.57 H (0.52-1.04) mg/dL Est GFR (MDRD) Af Amer 40 (>60 ml/min/1.73 sqM) Est GFR (MDRD) Non-Af 33 (>60 ml/min/1.73 sqM) Glucose 353 H (74-99) mg/dL Plasma Lactic Acid Kwabena (0.7-2.0) mmol/L Calcium 8.4 (8.4-10.2) mg/dL Total Bilirubin 0.7 (0.2-1.3) mg/dL AST 25 (14-36) U/L ALT 17 (9-52) U/L Alkaline Phosphatase 104 (38-126) U/L Total Creatine Kinase 61 (30-135) U/L CK-MB (CK-2) 1.2 (0.0-2.4) ng/mL CK-MB (CK-2) Rel Index 2.0 Troponin I 0.019 (0.000-0.034) ng/mL Total Protein 5.5 L (6.3-8.2) g/dL Albumin 2.9 L (3.5-5.0) g/dL 12/03/16 12/03/16 12/03/16 Range/Units 07:30 07:30 08:10 WBC (3.8-10.6) k/uL RBC (3.80-5.40) m/uL Hgb (11.4-16.0) gm/dL Hct (34.0-46.0) % MCV (80.0-100.0) fL MCH (25.0-35.0) pg MCHC (31.0-37.0) g/dL RDW (11.5-15.5) % Plt Count (150-450) k/uL Neutrophils % % Lymphocytes % % Monocytes % % Eosinophils % % Basophils % % Neutrophils # (1.3-7.7) k/uL Lymphocytes # (1.0-4.8) k/uL Monocytes # (0-1.0) k/uL Eosinophils # (0-0.7) k/uL Basophils # (0-0.2) k/uL Hypochromasia Poikilocytosis Anisocytosis PT 12.0 (9.0-12.0) sec INR 1.2 (<1.1) APTT 25.8 (22.0-30.0) sec Sample Site L radial ABG pH 7.03 L* (7.35-7.45) ABG pCO2 90 H* (35-45) mmHg ABG pO2 116 H (83-108) mmHg ABG HCO3 23 (21-25) mmol/L ABG Total CO2 26 H (19-24) mmol/L ABG O2 Saturation 95.0 (94-97) % ABG Base Excess -6.7 mmol/L FiO2 100 % Sodium (137-145) mmol/L Potassium (3.5-5.1) mmol/L Chloride (98-107) mmol/L Carbon Dioxide (22-30) mmol/L Anion Gap mmol/L BUN (7-17) mg/dL Creatinine (0.52-1.04) mg/dL Est GFR (MDRD) Af Amer (>60 ml/min/1.73 sqM) Est GFR (MDRD) Non-Af (>60 ml/min/1.73 sqM) Glucose (74-99) mg/dL Plasma Lactic Acid Kwabena 7.8 H* (0.7-2.0) mmol/L Calcium (8.4-10.2) mg/dL Total Bilirubin (0.2-1.3) mg/dL AST (14-36) U/L ALT (9-52) U/L Alkaline Phosphatase (38-126) U/L Total Creatine Kinase (30-135) U/L CK-MB (CK-2) (0.0-2.4) ng/mL CK-MB (CK-2) Rel Index Troponin I (0.000-0.034) ng/mL Total Protein (6.3-8.2) g/dL Albumin (3.5-5.0) g/dL Critical Care Time Total Critical Care Time: 90 Critical Care Time: She came in and CPR was in progress. We had only one IV access to the left deltoid proximal tibia unfortunately that IV went bad we started another intraosseous in the right proximal tibia entered into the IV in the left proximal arm CPR was continued for another 10 minutes then now we have the pulse at that point we gave her liter and half of fluids she was intubated with the help of arthritis, tube placement was confirmed with bilateral auscultation as well as some dysuria to room she was sedated with propofol other dropped her blood pressure significantly and then she was started on an or appendectomy tract and we didn't have on a farm IV access to do the fluids and pressors [ right femoral central line considering she has a very short neck and in case we need to restart the CPR so we don't have to and tripped CPR be admitted to hospitalist service and she will go into the ICU Disposition Clinical Impression: Respiratory failure, Cardiac arrest, Hypotension, Respiratory acidosis Disposition: ADMITTED IP TO THIS HOSP Condition: Serious Referrals: Tyler Hermosillo DO [Primary Care Provider] - 1-2 days - Out of Hospital Transfer - Req. Specs Out of Hospital Transfer - Requested Specifics: Intensive Care Unit (She will be admitted to intensive care under Dr. Hernández and hospitalist service)
[2016-12-03] MEDS ORDERED: FUROSEMIDE 10 MG/ML 4 ML VIAL IV STA (09:30)
[2016-12-03] MEDS ORDERED: PIPERACILLIN-TAZOBACTAM 3.375 GM in DEXTROSE/WATER 1 50ML.BAG IVPB STA (09:32)
[2016-12-03 09:41] LABS: Appearance,Urine Turbid (Clear); Bacteria,Urine Many /hpf; Bilirubin,Urine Negative (Negative); Glucose,Urine (UA) 3+ (Negative); Ketones,Urine Negative (Negative); Leukocyte Esterase,Urine Large (Negative); Nitrite,Urine Negative (Negative); Particle Count 94568; Protein,Urine 3+ (Negative); RBC,Urine 56 /hpf (0-5); Specific Gravity,Urine 1.011 (1.001-1.035); UA Billing (MACRO vs. MICRO) MICRO; Urobilinogen,Urine <2.0 mg/dL (<2.0); WBC,Urine >182 /hpf (0-5)
[2016-12-03] MEDS ORDERED: NALOXONE 0.4 MG/ML 1 ML VIAL IV PRN (09:43)
[2016-12-03] MEDS ORDERED: LACTATED RINGERS 1,000 ML IV SCH (09:45)
--- NOTE | 2016-12-03 09:58 | CT ---
EXAMINATION TYPE: CT brain wo con DATE OF EXAM: 12/03/2016 HISTORY: Cardiac arrest CT DLP: 1131.90 mGycm. Automated Exposure Control for Dose Reduction was Utilized. TECHNIQUE: CT scan of the head is performed without contrast. COMPARISON: CT brain September 06, 2016. FINDINGS: There is no acute intracranial hemorrhage or midline shift identified. There is diffuse v entricular and sulcal prominence consistent with diffuse age-related cerebral atrophy. There is low- attenuation in the periventricular white matter consistent with chronic small vessel ischemic change. Bilateral basal ganglia calcifications are redemonstrated. The globes are intact and the visualized sinuses are clear. IMPRESSION: No acute intracranial hemorrhage or midline shift. There is mild diffuse age-related ce rebral atrophy and chronic small vessel ischemic change redemonstrated. No significant change from pr ior study is seen.
[2016-12-03] MEDS ORDERED: SODIUM CHLORIDE 0.9% 2,000 ML IV ONE (10:00)
[2016-12-03] MEDS ORDERED: fentaNYL (PF) 50 MCG/ML 2 ML AMP IV STA (10:14)
[2016-12-03 10:53] LABS: ABG Base Excess -4.4 mmol/L; ABG HCO3 23 mmol/L (21-25); ABG PCO2 72 mmHg (35-45); ABG PH 7.14 (7.35-7.45); ABG PO2 93 mmHg (83-108); ABG TCO2 26 mmol/L (19-24)
[2016-12-03 11:21] LABS: Glucose,Whole Blood 351 mg/dL (75-99)
[2016-12-03] MEDS ORDERED: INSULIN REGULAR BOLUS (FROM DRIP BAG) IV PRN (11:39)
[2016-12-03] MEDS ORDERED: NOREPINEPHRIN 16 MG-0.9%NS PMX 16 MG/250 ML ML IV SCH (11:45)
[2016-12-03] MEDS: IPRATROPIUM-ALBUTEROL 3 ML NEB INHALATION SCH ×3 (12:04→19:26)
--- NOTE | 2016-12-03 12:25 | P.CNPUL ---
History of Present Illness Consult date: 12/03/16 Chief complaint: Cardiac arrest History of present illness: This is a 66-year-old female patient who got admitted to the ED this morning with cardiopulmonary arrest. The patient has multiple medical problems and comorbidities. The patient has advanced COPD and she is an ex-smoker. She also has coronary artery disease with previous coronary interventions and stenting and most recently the patient had a cardiac catheterization that was done on 11/24/2016 and based on the cath, the patient had a patent stent to left main and RCA and there was no significant occlusion or anatomic obstruction. The patient's most recent echocardiogram also from November 2016 showed a preserved LV function with an ejection fraction of 50-55%. She suffers from chronic renal failure. Her baseline crit is around 1.58. She is morbidly obese. She has also various other comorbidities including chronic hypoxic arrest 30 failure, chronic diverticulosis, chronic gastritis, hypertension, previous history of stroke with right-sided weakness, hyperlipidemia, fibromyalgia and osteoarthritis. Her performance and functional status is been essentially very poor. Based on the reported history, the patient woke up this morning with significant shortness of breath. Her pulse ox was found to by in the low 80s by the . Note that the patient has home O2. Once the patient got loaded on the stretcher, the patient was found to be cardiac pulmonary arrest. At that point CPR was initiated. The patient was also bag and non-intubated in the field. The patient was on for approximately 20 minutes. During this time the patient received 5 rounds of epinephrine, 2 rounds of bicarb and ultimately on 7:19 AM, the patient's cardiac rhythm went back to sinus. In the emergency department the patient was intubated and placed on a mechanical ventilator. The patient was given a total of 2 L of IV fluids and subsequently she was found to be in acute pulmonary edema. CAT scan of the brain was done and was negative. Chest x-ray showed breath and pulmonary infiltrates typical of an underlying pulmonary edema. Currently the patient is a triple-lumen catheter in the right femoral vein. The patient is been resuscitated with IV fluids and pressors and currently she is on norepinephrine infusion running at 25 mics. She is also sedated on propofol at 10 mics. She is on a mechanical ventilator on assist control mode at the rate of 14, tidal volume of 450, FiO2 of 100% and a PEEP of 5. The blood gases showed a pH of 7.14 with a pCO2 of 72 and pO2 of 93. Peak air pressure quite elevated in the low 40s with a lower static airway pressure. The patient's lactic acid level is at 7.8. She is oliguric/anuric with minimal amount of urine output collected post Crenshaw catheter insertion. Note that she was given a dose of Lasix 40 push and the emergency department without any much success in terms of urine output. Her blood sugars are poorly controlled. Most recent blood sugar is above 300 and she'll be also started an insulin drip. Review of Systems ROS unobtainable: due to endotracheal tube Past Medical History Past Medical History: Asthma, Cancer, Heart Failure, COPD, CVA/TIA, Diabetes Mellitus, Eye Disorder, Fibromyalgia, GI Bleed, Hyperlipidemia, Hypertension, Myocardial Infarction ([place]), Osteoarthritis (OA), Pneumonia Additional Past Medical History / Comment(s): Obesity, chronic hypoxic respiratory failure, advanced COPD with chronic hypoxemia, chronic renal failure with a baseline creatinine of 1.5, diverticulosis, chronic gastritis with previous history of duodenal ectasia requiring dome plasma treatment, hypertension, CVA with residual right-sided weakness, diabetes mellitus type 2 maintained chronically on insulin, obesity with a BMI of 42, hyperlipidemia, hypo-myalgia, osteoarthritis, depression, preserved LV function with an ejection fraction of 55% and a component of diastolic heart failure, previous history of uterine cancer treated with radiation therapy, history of cystitis, history of vaginal bleeding, history of right femoral pseudoaneurysm, severe pulmonary hypertension, IBS, urinary incontinence, glaucoma, cataracts, chronic back pain, migraines Last Myocardial Infarction Date:: 06/12/15 History of Any Multi-Drug Resistant Organisms: None Reported Past Surgical History: Cholecystectomy, Heart Catheterization, Heart Catheterization With Stent Additional Past Surgical History / Comment(s): 06/12/15 Cardiac cath, 06/15/15 PTCA with stent mid L main, D&C X2, YRS AGO HAD A DEVICE IN FOR RADIATION [place] FOR UTERINE CA THAT WAS SINCE REMOVED.EGD/COLONOSCOPY.02/18/16 heart cath 3 stents to rca Past Anesthesia/Blood Transfusion Reactions: Motion Sickness Additional Past Anesthesia/Blood Transfusion Reaction / Comment(s): CLAUSTROPHOBIA. Pt has had blood transfusion in past-no reaction to blood Date of Last Stent Placement:: 02/18/16 Past Psychological History: Anxiety, Depression Additional Psychological History / Comment(s): Pt resides with her spouse. She is basically wheel chair bound most of the time for the past several yrs. She at times ambulates with assistance or pushes her wheelchair. She feeds herself. She has a supportive family. She has a sister that helps with her bathing and her олег and spouse will help with her medication. Smoking Status: Former smoker Past Alcohol Use History: None Reported Additional Past Alcohol Use History / Comment(s): STARTED SMOKING AGE 20, STOPPED SMOKING PPD BUT WOULD BURN HALF OUT IN TIEN TRAY Past Drug Use History: None Reported - Past Family History Father Additional Family Medical History / Comment(s): WAS A DRINKER WHEN YOUNGER , LOST AN ARM IN THE SERVICE, PANCREATITIS, LIVER CANCER- from at age 57yrs. Mother Family Medical History: CVA/TIA Additional Family Medical History / Comment(s): HEART PROBLEMS, STARTED DRINKING AFTER OF HER , she of a ruptured liver at age 59 yrs. Medications and Allergies Home Medications Medication Instructions Recorded Confirmed Type Carvedilol [Coreg] 25 mg PO BID 08/07/16 12/03/16 History Insulin Aspart [NovoLOG] 20 unit SQ AC-TID 08/07/16 12/03/16 History Nitroglycerin Sl Tabs [Nitrostat] 0.4 mg SUBLINGUAL Q5M PRN 08/07/16 12/03/16 History Nystatin 100,000 Unit/gm Powd 1 applic TOPICAL BID PRN 08/26/16 12/03/16 History [Mycostatin Powder] Furosemide [Lasix] 40 mg PO BID 09/06/16 12/03/16 History Allopurinol [Zyloprim] 150 mg PO DAILY 11/23/16 12/03/16 History LORazepam [Ativan] 0.5 mg PO TID PRN 11/23/16 12/03/16 History Ergocalciferol [Vitamin D2 50,000 unit PO FR 11/26/16 12/03/16 History (DRISDOL)] Allergies Allergy/AdvReac Type Severity Reaction Status Date / Time hydralazine Allergy Severe Anaphylaxis Verified 12/03/16 10:30 codeine AdvReac Severe Verified 12/03/16 10:30 Sedation hydrocodone AdvReac Severe Verified 12/03/16 10:30 Sedation lisinopril AdvReac Cough Verified 12/03/16 10:30 Physical Exam Vitals: Vital Signs Temp Pulse Resp BP Pulse Ox 12/03/16 12:07 62 12/03/16 10:52 97.4 F L 74 14 112/50 95 12/03/16 10:47 77 14 99/46 94 L 12/03/16 10:42 78 14 119/53 94 L 12/03/16 10:37 76 14 103/49 94 L 12/03/16 10:32 74 14 108/49 95 12/03/16 10:27 74 14 107/48 94 L 12/03/16 10:22 74 14 97/52 95 12/03/16 10:17 74 14 87/39 95 12/03/16 10:12 74 14 108/49 95 12/03/16 10:07 74 14 111/51 94 L 12/03/16 10:02 74 14 98/54 95 12/03/16 09:57 74 16 103/49 95 12/03/16 09:52 74 14 101/49 95 12/03/16 09:47 74 14 106/49 95 12/03/16 09:42 97.1 F L 76 14 110/50 95 12/03/16 09:37 76 14 105/59 95 12/03/16 09:32 78 14 124/54 94 L 12/03/16 09:27 74 14 106/49 96 12/03/16 09:23 78 14 193/116 94 L 12/03/16 09:11 78 14 217/78 96 12/03/16 09:07 76 14 147/58 96 12/03/16 09:03 75 14 109/53 96 12/03/16 08:59 97.1 F L 74 14 106/53 96 12/03/16 08:55 74 14 128/58 96 12/03/16 08:51 74 14 126/53 96 12/03/16 08:47 74 14 158/56 97 12/03/16 08:43 72 14 143/60 96 12/03/16 08:39 72 14 149/57 97 12/03/16 08:35 72 14 114/51 97 12/03/16 08:32 68 14 118/53 97 12/03/16 08:27 72 14 114/53 96 12/03/16 08:23 70 14 119/49 97 12/03/16 08:19 68 14 83/42 98 12/03/16 08:15 68 14 108/48 98 12/03/16 08:12 65 14 114/44 97 12/03/16 08:07 64 14 99/55 97 12/03/16 08:04 65 14 114/52 97 12/03/16 07:51 63 14 97/46 96 12/03/16 07:47 63 14 103/61 95 12/03/16 07:45 65 14 98/46 95 12/03/16 07:41 77 14 191/103 98 12/03/16 07:32 81 14 185/78 99 12/03/16 07:28 91 12 227/89 100 12/03/16 07:24 86 12/03/16 07:19 91 12 252/114 91 L Intake and Output 12/02/16 12/03/16 12/03/16 22:59 06:59 14:59 Intake Total 264.913 Balance 264.913 Intake: Intake, IV Titration 264.913 Amount Norepinephrin 4 mg-0.9% 250.0 Ns Pmx 4 mg In 250 ml @ Titrate IV .Q0M DUSTIN Rx#: [id number] Propofol 500 mg In Empty 14.913 Bag 1 bag @ Titrate IV . Q0M STA Rx#:[id number] Other: Weight 106.6 kg Patient Weight 12/04/16 06:59 Weight 106.6 kg Morbidly obese, calm and comfortable, sedated on a mechanical ventilator, orogastric and orotracheal tube are both in place.Head exam was generally normal. There was no scleral icterus or corneal arcus. Mucous membranes were moist. Neck is supple and short and the patient has a thick neck with double changes. Orogastric and orotracheal tube are both in place. No neck stiffness. JVDs cannot be accurately appreciated. Lung sounds are diminished bilaterally and there is diffuse extremity wheezes throughout the lung manuel along with prolongation of x-rays of breathing.Cardiac exam revealed the PMI to be normally situated and sized. The rhythm was regular and no extrasystoles were noted during several minutes of auscultation. The first and second heart sounds were normal and physiologic splitting of the second heart sound was noted. There were no murmurs, rubs, clicks, or gallops.Abdominal exam revealed normal bowel sounds. The abdomen was soft, non-tender, and without masses, organomegaly, or appreciable enlargement of the abdominal aorta. Patient is obese and orders cannot be accurately palpated. Extremities reveal diminished pulses. There is no cyanosis or clubbing. Neurologically, the patient is sedated with Diprivan. Pupils are equal and reactive to light. Based on the reported history the patient is flaccid weakness in the right upper extremity secondary to previous stroke. No facial asymmetry at this point. She has a positive gag. She has a positive light reflex although sluggish. She is not withdrawing to painful stimuli. No clonus. No Babinski. Results - Laboratory Findings CBC and BMP: 12/03/16 07:30 12/03/16 07:30 ABG ABG pH 7.14 (7.35-7.45) L* 12/03/16 10:29 ABG pCO2 72 mmHg (35-45) H* 12/03/16 10:29 ABG pO2 93 mmHg (83-108) 12/03/16 10:29 ABG O2 Saturation 94.0 % (94-97) 12/03/16 10:29 PT/INR, D-dimer PT 12.0 sec (9.0-12.0) 12/03/16 07:30 INR 1.2 (<1.1) 12/03/16 07:30 Abnormal lab findings: Abnormal Labs 12/03/16 12/03/16 12/03/16 07:30 07:30 07:30 WBC 15.5 H RBC 3.54 L Hgb 9.3 L D Hct 31.0 L MCHC 30.1 L RDW 18.2 H Neutrophils # 10.3 H ABG pH ABG pCO2 ABG pO2 ABG Total CO2 Chloride 108 H BUN 40 H Creatinine 1.57 H Glucose 353 H POC Glucose (mg/dL) Plasma Lactic Acid Kwabena 7.8 H* Total Protein 5.5 L Albumin 2.9 L Urine Appearance Urine Protein Urine Glucose (UA) Urine Blood Ur Leukocyte Esterase Urine RBC Urine WBC Urine Bacteria 12/03/16 12/03/16 12/03/16 08:10 08:51 10:29 WBC RBC Hgb Hct MCHC RDW Neutrophils # ABG pH 7.03 L* 7.14 L* ABG pCO2 90 H* 72 H* ABG pO2 116 H ABG Total CO2 26 H 26 H Chloride BUN Creatinine Glucose POC Glucose (mg/dL) Plasma Lactic Acid Kwabena Total Protein Albumin Urine Appearance Turbid H Urine Protein 3+ H Urine Glucose (UA) 3+ H Urine Blood Large H Ur Leukocyte Esterase Large H Urine RBC 56 H Urine WBC >182 H Urine Bacteria Many H 12/03/16 11:19 WBC RBC Hgb Hct MCHC RDW Neutrophils # ABG pH ABG pCO2 ABG pO2 ABG Total CO2 Chloride BUN Creatinine Glucose POC Glucose (mg/dL) 351 H Plasma Lactic Acid Kwabena Total Protein Albumin Urine Appearance Urine Protein Urine Glucose (UA) Urine Blood Ur Leukocyte Esterase Urine RBC Urine WBC Urine Bacteria - Diagnostic Findings Chest x-ray: image reviewed Assessment and Plan Plan: Assessment 1 acute cardio pulmonary arrest. Exact cause is not clear. It's possible that the patient had a combination of COPD and CHF exacerbation as the patient was found to be in acute pulmonary edema at a time of arrival. The patient was down for a total of 20 minutes during which she was given epinephrine and bicarb drip. The patient was in asystole./PEA 2 acute respiratory failure secondary to above, currently intubated on mechanical ventilator 3 acute decompensated heart failure and pulmonary edema 4 acute COPD exacerbation with increased bronchospasm wheezing and elevated airway pressures 5 acute shock. Rule out cardiogenic shock post cardiac arrest and the patient is currently on pressors and norepinephrine infusion is running at 25 mics. 6 chronic renal failure, currently oliguric, rule out a component of acute kidney injury on top of chronic renal failure 7 CVA, history of with some residual right-sided weakness 8 possible hypoxic/anoxic encephalopathy post cardiac arrest 9 utilizing cancer history of 10 CHF with diastolic dysfunction with a preserved LV function of 55% and secondary pulmonary hypertension 11 coronary artery disease with a recent cardiac catheterization showing patent stents to RCA and left main 12 diabetes mellitus type 2 13 hyperlipidemia 14 obesity BMI of 42 15 fibromyalgia 16 hyperlipidemia 17 hypothyroidism 8 suspected urinary tract infection 19 depression Plan Very sick and critically ill female patient was post cardiac arrest. We will continue vent support for now. Meanwhile the patient is extensively bronchospastic and wheezy. I think is very reasonable to sedated for now with Diprivan to control at least her breathing status. Will up the sedation that she better secondary with a mechanical ventilator. We'll continue vent support and with the the respiratory rate of 24 based on some residual respiratory acidosis and the blood gases. We'll put the patient on DuoNeb the right treatment sound the clock and will put the patient on IV Solu-Medrol. Meanwhile , continue pressors for blood pressure control. It's reasonable to diuresis patient with a Lasix drip at 5 mg an hour and monitor the urine output. The patient is in acute pulmonary edema which is obvious he affecting the patient's respiratory status and oxygenation. Check cardiac enzymes. Cover the patient IV Zosyn as an empiric antibiotic coverage and obtain blood cultures. Obtain sputum cultures. Put the patient IV heparin for 24 hours. Repeat CAT scan within next 24 hours. Sedation holiday on daily basis rule out underlying hypoxic/anoxic encephalopathy. Insulin drip for blood sugar control. May need a cardiology and neurology consult at a later stage. We'll continue to follow. Please refer to my orders for further details. The patient's critically ill.
[2016-12-03] MEDS ORDERED: HEPARIN SODIUM,PORCINE 5,000 UNIT/ML 1 ML VIAL IV PRN (12:26)
[2016-12-03 12:58] LABS: Anisocytosis Slight; Basophils # (A) 0.1 k/uL (0-0.2); Basophils % (A) 0 %; CH 26.2; CHCM 29.2; Eosinophils # (A) 0.1 k/uL (0-0.7); Eosinophils % (A) 0 %; HCT 30.7 % (34.0-46.0); HDW 4.67; HGB 9.3 gm/dL (11.4-16.0); Hypochromasia Marked; Luc # (Auto) 0.22; Luc % (Auto) 1; Lymphocytes # (A) 0.4 k/uL (1.0-4.8); Lymphocytes % (A) 2 %; MCH 27.4 pg (25.0-35.0); MCHC 30.4 g/dL (31.0-37.0); Mean Platelet Volume 7.5; Monocytes # (A) 1.4 k/uL (0-1.0); Monocytes % (A) 6 %; Neutrophils # (A) 21.4 k/uL (1.3-7.7); Neutrophils % (A) 91 %; Poikilocytosis Marked; RBC 3.41 m/uL (3.80-5.40); RDW 18.2 % (11.5-15.5); WBC 23.6 k/uL (3.8-10.6); WBC (Perox) 23.67
[2016-12-03] MEDS: FUROSEMIDE 250 MG in SODIUM CHLORIDE 0.9% 225 ML IVP SCH (13:00)
[2016-12-03] MEDS: HEPARIN SODIUM,PORCINE/D5W PMX 25,000 UNIT in DEXTROSE/WATER 1 500ML.BAG IV SCH (13:00)
[2016-12-03 13:12] LABS: INR 1.2 (<1.1); Partial Thromboplastin Time 24.1 sec (22.0-30.0)
[2016-12-03 13:16] LABS: Glucose,Whole Blood 346 mg/dL (75-99)
[2016-12-03] MEDS: INSULIN REGULAR 100 UNIT in SODIUM CHLORIDE 0.9% 100 ML IV SCH (13:17)
[2016-12-03] MEDS: PROPOFOL 500 MG in EMPTY BAG 1 BAG IV SCH ×6 (13:22→21:38)
[2016-12-03] MEDS: methylPREDNISolone SOD SUCCI 125 MG/2 ML VIAL IV SCH ×2 (13:25→18:11)
[2016-12-03 14:16] LABS: Glucose,Whole Blood 285 mg/dL (75-99)
[2016-12-03 15:20] LABS: Glucose,Whole Blood 183 mg/dL (75-99)
[2016-12-03 15:25] LABS: ABG HCO3 22 mmol/L (21-25); ABG PCO2 47 mmHg (35-45); ABG PH 7.29 (7.35-7.45); ABG PO2 81 mmHg (83-108); ABG TCO2 23 mmol/L (19-24)
[2016-12-03 15:26] LABS: ABG Base Excess -3.8 mmol/L
[2016-12-03 17:01] LABS: Glucose,Whole Blood 218 mg/dL (75-99)
[2016-12-03 17:22] LABS: Hemoglobin A1C 6.8 % (4.2-6.1)
[2016-12-03 18:05] LABS: Glucose,Whole Blood 196 mg/dL (75-99)
[2016-12-03 19:00] LABS: Glucose,Whole Blood 194 mg/dL (75-99)
[2016-12-03] MEDS ORDERED: EPINEPHrine 1 MG/ML (MDV) 30 ML VIAL ONE (19:28)
[2016-12-03] MEDS ORDERED: SODIUM CHLORIDE 0.9% 250 ML BAG ONE (19:28)
[2016-12-03] MEDS ORDERED: NOREPINEPHRINE 1 MG/ML 4 ML VIAL IV ONE (19:28)
[2016-12-03] MEDS ORDERED: SODIUM BICARB 8.4% 50 ML SYR (1 MEQ/ML) ONE (19:28)
[2016-12-03 20:32] LABS: Glucose,Whole Blood 209 mg/dL (75-99)
[2016-12-03] MEDS ORDERED: INSULIN GLARGINE 100 UNIT/ML 10 ML VIAL SQ SCH (21:00)
--- NOTE | 2016-12-03 21:24 | HP ---
DATE OF ADMISSION: 12/03/2016 PRESENTING COMPLAINT: Short of breath. HISTORY OF PRESENTING COMPLAINT: This is a 66-year-old patient known to me from multiple admissions who was just discharged on 12/01/2016. 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 Patient also had been having recurrent uterine bleeding, due for outpatient surgery. Patient recent admissions include COPD exacerbation and CHF exacerbation. Also had a cardiac cath by Dr. Dacosta, found to have intermediate disease, not offered any further intervention. Patient earlier today became short of breath, told her pulse ox dropped to the 80s. Ambulance was called. In the ambulance, patient became unresponsive and into asystole, given epinephrine. At least 20 minutes of downtime was present, eventually got a pulse back and the patient was intubated and brought to the ICU. Remains on the ventilator, FiO2 of 50% and patient is on IV propofol, IV epinephrine, IV heparin and IV Lasix drip. I spoke to Dr. Hernández in the ICU. REVIEW OF SYSTEMS: The patient is intubated. PAST MEDICAL HISTORY: 1. GI bleed with gastric and duodenal ectasia with argon plasma coagulation. 2. Congestive heart failure from diastolic dysfunction, EF 55%. 3. Weakness from old stroke, especially right arm. 4. Diabetes mellitus type 2. 5. Coronary artery disease with stent to the LAD and right coronary artery in January 2016. 6. Recent cardiac cath as of last week. 7. Hyperlipidemia. 8. COPD. 9. Fibromyalgia. 10. Osteoarthritis. 11. Chronic urinary stress incontinence. 12. Right femoral pseudoaneurysm that was thrombosed. PAST SURGICAL HISTORY: Cardiac cath with stent, uterine cancer, cardiac cath, D&C, EGD, colonoscopy. SOCIAL HISTORY: . Uses a wheelchair to get about. Stopped smoking May 2015, smoked 4 packs for 40 years. FAMILY HISTORY: Cancer, pancreatitis. ALLERGIES: HYDRALAZINE, CODEINE, HYDROCODONE, LISINOPRIL. DISCHARGE MEDICATIONS as of 12/01/2016: 1. Lipitor 80 mg q.h.s. 2. Protonix 40 mg a day. 3. Aspirin 81 mg a day. 4. Norvasc 10 mg a day. 5. Coreg 25 p.o. b.i.d. 6. NovoLog 20 units subcu t.i.d. 7. Nitrostat 0.4 sublingual q.5 p.r.n. 8. Mycostatin powder. 9. Lasix 40 mg b.i.d. 10. Allopurinol 150 mg p.o. daily. 11. Ativan 0.5 p.o. t.i.d. p.r.n. 12. Proventil 2 puffs q.4 p.r.n. 13. Vitamin D2 50,000 units on Monday. 14. Lantus 70 units subcu q.h.s. 15. DuoNeb q.i.d. 16. Imdur 30 mg p.o. daily. On examination, afebrile, pulse 62, respirations 23, blood pressure 100/47, pulse ox 97%. Average build, lying in bed, intubated. EYES: Pupils equal. Conjunctivae normal. HEENT: External appearance of nose, ears and oral cavity normal. Endotracheal tube in place. NECK: Short thick. JVD unable to assess. Mass not palpable. RESPIRATORY: Effort increased. LUNGS: Diminished breath sounds. CARDIOVASCULAR: First and second sounds normal. Minimal edema. ABDOMEN: Soft, nontender. Liver and spleen not palpable. LYMPHATIC: No lymph nodes palpable in the neck or axillae. PSYCHIATRY: Unable to assess. NEUROLOGICAL: Pupils were sluggish. Patient has some response to pain. Also, patient has chronic right arm weakness. INVESTIGATIONS: White count 23.6, hemoglobin 9.3. Blood gas with pH of 7.14 and pCO2 72. Potassium 4.4. BUN 40, creatinine 1.57. Troponin 0.142. Chest x-ray shows bilateral pleural effusions. ASSESSMENT: 1. Acute on chronic congestive heart failure exacerbation from diastolic dysfunction, secondary to coronary artery disease, ejection fraction 55% with a recent cardiac catheterization. 2. Cardiac arrest in a patient with underlying coronary artery disease. 3. Chronic obstructive pulmonary disease in an ex-smoker. 4. Chronic kidney disease stage 3 from diabetic nephropathy and hypertensive nephrosclerosis. 5. Chronic menorrhagia pending outpatient surgery. 6. Chronic diverticulosis. 7. Chronic gastritis and duodenal ectasia with a history of argon plasma coagulation. 8. Essential hypertension. 9. Right arm weakness from old stroke. 10. Diabetes mellitus type 2, chronically on insulin. 11. Obesity, body mass index greater than 40, morbid type. 12. Coronary artery disease with stent to the left anterior descending artery and right coronary artery. 13. Hyperlipidemia. 14. Fibromyalgia. 15. Primary osteoarthritis of multiple joints, bilateral. 16. Urinary stress incontinence. 17. Depression, not otherwise specified. 18. Acute hypoxic respiratory failure secondary to acute pulmonary edema from underlying, coronary artery disease and congestive heart failure. 19. Recurrent chronic blood loss anemia secondary to menorrhagia. 20. Acute cardiogenic shock from underlying coronary artery disease. PLAN: Patient is currently on the drips, including propofol, Levophed, insulin and Lasix drip. Prognosis is not good. I did have a long talk with the patient and the just 3 days ago about her overall guarded prognosis, that she is very brittle and we had talked about the patient had multiple lives and she was joking about the same, too. Will discuss with Dr. Hernández from pulmonary. Will follow.
[2016-12-03] MEDS: CHLORHEXIDINE GLUCONATE 15 ML CUP MUCOUS MEM SCH (21:32)
[2016-12-03 21:43] LABS: Glucose,Whole Blood 219 mg/dL (75-99)
[2016-12-03 22:53] LABS: Glucose,Whole Blood 209 mg/dL (75-99)
[2016-12-04 00:12] LABS: Glucose,Whole Blood 213 mg/dL (75-99)
[2016-12-04] MEDS: INSULIN REGULAR 100 UNIT in SODIUM CHLORIDE 0.9% 100 ML IV SCH ×2 (00:14→21:48)
[2016-12-04] MEDS: PROPOFOL 500 MG in EMPTY BAG 1 BAG IV SCH ×13 (00:14→22:46)
[2016-12-04] MEDS: methylPREDNISolone SOD SUCCI 125 MG/2 ML VIAL IV SCH ×4 (00:16→18:10)
[2016-12-04 01:38] LABS: Glucose,Whole Blood 184 mg/dL (75-99)
[2016-12-04 03:46] LABS: Glucose,Whole Blood 191 mg/dL (75-99)
[2016-12-04 04:30] LABS: Anisocytosis Slight; Basophils % (A) 0 %; CH 26.1; CHCM 31.8; Eosinophils % (A) 0 %; HDW 5.01; HGB 8.6 gm/dL (11.4-16.0); Hypochromasia Marked; Luc # (Auto) 0.05; Luc % (Auto) 0; Lymphocytes # (A) 0.6 k/uL (1.0-4.8); Lymphocytes % (A) 4 %; MCH 27.2 pg (25.0-35.0); Mean Platelet Volume 7.7; Monocytes # (A) 0.4 k/uL (0-1.0); Monocytes % (A) 3 %; Neutrophils % (A) 93 %; Poikilocytosis Marked; RBC 3.15 m/uL (3.80-5.40); RDW 18.4 % (11.5-15.5); WBC 17.1 k/uL (3.8-10.6); WBC (Perox) 17.18
[2016-12-04 04:31] LABS: MCV 82.5 fL (80.0-100.0)
[2016-12-04 04:57] LABS: ABG Base Excess -3.6 mmol/L; ABG HCO3 21 mmol/L (21-25); ABG PCO2 38 mmHg (35-45); ABG PH 7.36 (7.35-7.45); ABG PO2 89 mmHg (83-108); ABG TCO2 22 mmol/L (19-24)
[2016-12-04 05:11] LABS: INR 1.2 (<1.1); Prothrombin Time 12.1 sec (9.0-12.0)
[2016-12-04 05:15] LABS: Potassium 4.4 mmol/L (3.5-5.1); Total Bilirubin 0.6 mg/dL (0.2-1.3); Total Protein 5.1 g/dL (6.3-8.2)
[2016-12-04 06:06] LABS: Glucose,Whole Blood 177 mg/dL (75-99)
[2016-12-04 06:40] LABS: Glucose,Whole Blood 163 mg/dL (75-99)
--- NOTE | 2016-12-04 07:35 | XR ---
EXAMINATION TYPE: XR chest 1V portable DATE OF EXAM: 12/04/2016 CLINICAL HISTORY: Difficulty breathing progress study. TECHNIQUE: Single AP portable semiupright view of the chest is obtained. COMPARISON: Chest x-ray from one day earlier FINDINGS: Endotracheal tube and orogastric tube are satisfactory in position. There is persistent ca rdiomegaly with small to moderate size bilateral pleural effusions. There is improvement in bilateral opacities suggest resolving edema. No pneumothorax is seen bilaterally. Prominent multilevel spurrin g is seen throughout the spine. IMPRESSION: There is cardiomegaly with persistent small to moderate-sized bilateral pleural effusions but marked interval improvement in diffuse bilateral alveolar and interstitial edema.
[2016-12-04] MEDS: IPRATROPIUM-ALBUTEROL 3 ML NEB INHALATION SCH ×4 (07:56→19:59)
[2016-12-04 08:12] LABS: Glucose,Whole Blood 174 mg/dL (75-99)
[2016-12-04] MEDS: PANTOPRAZOLE 40 MG/10 ML VIAL IV SCH (08:16)
[2016-12-04] MEDS: CHLORHEXIDINE GLUCONATE 15 ML CUP MUCOUS MEM SCH ×2 (08:16→21:58)
[2016-12-04 09:03] LABS: Glucose,Whole Blood 167 mg/dL (75-99)
[2016-12-04] MEDS: HEPARIN SODIUM,PORCINE/D5W PMX 25,000 UNIT in DEXTROSE/WATER 1 500ML.BAG IV SCH (09:03)
[2016-12-04 10:22] LABS: Glucose,Whole Blood 160 mg/dL (75-99)
--- NOTE | 2016-12-04 11:27 | PCN ---
DATE OF PROCEDURE: ARTERIAL LINE PLACEMENT PREOPERATIVE DIAGNOSIS: Cardiac arrest. POSTOPERATIVE DIAGNOSIS: Cardiac arrest. SITE OF INSERTION: Left radial artery. Indication: Hemodynamic monitoring. A time-out was completed verifying correct patient, procedure, site, positioning, and implant(s) or special equipment if applicable. Tony's test was performed to ensure adequate perfusion. The patient's left wrist was prepped and draped in sterile fashion. 1% Lidocaine was used to anesthetize the area. An 18G Arrow arterial line was introduced into the left radial artery. The catheter was threaded over the guide wire and the needle was removed with appropriate pulsatile blood return. Blood loss was minimal. The catheter was then sutured in place to the skin and a sterile dressing applied. Perfusion to the extremity distal to the point of catheter insertion was checked and found to be adequate. The patient tolerated the procedure well and there were no complications. No bedside complications or bleeding.
[2016-12-04 12:10] LABS: Glucose,Whole Blood 161 mg/dL (75-99)
--- NOTE | 2016-12-04 12:48 | P.PN ---
Subjective This is a 66-year-old female patient who got admitted to the ED this morning with cardiopulmonary arrest. The patient has multiple medical problems and comorbidities. The patient has advanced COPD and she is an ex-smoker. She also has coronary artery disease with previous coronary interventions and stenting and most recently the patient had a cardiac catheterization that was done on 11/24/2016 and based on the cath, the patient had a patent stent to left main and RCA and there was no significant occlusion or anatomic obstruction. The patient's most recent echocardiogram also from November 2016 showed a preserved LV function with an ejection fraction of 50-55%. She suffers from chronic renal failure. Her baseline crit is around 1.58. She is morbidly obese. She has also various other comorbidities including chronic hypoxic arrest 30 failure, chronic diverticulosis, chronic gastritis, hypertension, previous history of stroke with right-sided weakness, hyperlipidemia, fibromyalgia and osteoarthritis. Her performance and functional status is been essentially very poor. Based on the reported history, the patient woke up this morning with significant shortness of breath. Her pulse ox was found to by in the low 80s by the . Note that the patient has home O2. Once the patient got loaded on the stretcher, the patient was found to be cardiac pulmonary arrest. At that point CPR was initiated. The patient was also bag and non-intubated in the field. The patient was on for approximately 20 minutes. During this time the patient received 5 rounds of epinephrine, 2 rounds of bicarb and ultimately on 7:19 AM, the patient's cardiac rhythm went back to sinus. In the emergency department the patient was intubated and placed on a mechanical ventilator. The patient was given a total of 2 L of IV fluids and subsequently she was found to be in acute pulmonary edema. CAT scan of the brain was done and was negative. Chest x-ray showed breath and pulmonary infiltrates typical of an underlying pulmonary edema. Currently the patient is a triple-lumen catheter in the right femoral vein. The patient is been resuscitated with IV fluids and pressors and currently she is on norepinephrine infusion running at 25 mics. She is also sedated on propofol at 10 mics. She is on a mechanical ventilator on assist control mode at the rate of 14, tidal volume of 450, FiO2 of 100% and a PEEP of 5. The blood gases showed a pH of 7.14 with a pCO2 of 72 and pO2 of 93. Peak air pressure quite elevated in the low 40s with a lower static airway pressure. The patient's lactic acid level is at 7.8. She is oliguric/anuric with minimal amount of urine output collected post Crenshaw catheter insertion. Note that she was given a dose of Lasix 40 push and the emergency department without any much success in terms of urine output. Her blood sugars are poorly controlled. Most recent blood sugar is above 300 and she'll be also started an insulin drip. On 12/04/2016, I'm seeing this patient in follow-up following her cardiac pulmonary arrest. Please refer to the details mentioned above in regards to her presentation. The patient's downtime was estimated to be around 20 minutes. I was able to given a sedation holiday this morning and the patient woke up nicely and she was able to follow simple commands. This was very reassuring and encouraging. She was not ready for any further weaning and based on that I put her back on sedation with Diprivan. She is still on a mechanical ventilator. She still in the 100% FiO2 with a PEEP of 5 and a tidal volume of 450. The blood gases showed no much improvement in his oxygenation, yet based on the senior piping designer pulse oximeter analysis, was able to wean her down to 80% FiO2 and in the process of further bringing down FiO2 to maintain a saturation above 92%. Hemodynamically, she is off pressors completely. She is on Lasix drip at 5 mg an hour and she is producing adequate amount of urine output which seems to be improving. Her chest x-ray shows improvement in the volume status. There is development of bilateral pleural effusions. He was in a good location. Creatinine is up to 2.7. Rest of the electrodes are within normal limits with a mild hypernatremia of 146 Objective - Vital Signs Vital signs: Vital Signs Temp 99.6 F 12/04/16 12:00 Pulse 64 12/04/16 12:00 Resp 23 12/04/16 12:00 BP 111/58 12/04/16 12:00 Pulse Ox 100 12/04/16 12:00 Intake & Output 12/03/16 12/04/16 12/04/16 18:59 06:59 18:59 Intake Total 2186.684 5707.718 647.225 Output Total 15 236 225 Balance 7907.775 0633.718 422.225 Weight 106.6 kg 105.7 kg 105.7 kg Intake: IV 600 900 450 0.9 NS 600 900 450 Intake, IV Titration 493.184 922.718 197.225 Amount Furosemide 250 mg In 79.25 Sodium Chloride 0.9% 225 ml @ 5 MG/HR 5 mls/hr IVP .Q24H [facility] Rx#:[id number] Heparin Sodium,Porcine/ 364.920 111.006 D5w Pmx 25,000 unit In Dextrose/Water 1 500ml. bag @ 9.4 UNITS/KG/HR 20. 04 mls/hr IV .Q24H [facility] Rx #:[id number] Insulin Regular 100 unit 48.584 95.668 In Sodium Chloride 0.9% 100 ml @ Per Protocol IV .Q0M [facility] Rx#:[id number] Norepinephrin 16 mg-0.9% 29.687 168.285 36.219 Ns Pmx 16 mg In 250 ml @ Titrate IV .Q0M [facility] Rx#: [id number] Norepinephrin 4 mg-0.9% 250.0 Ns Pmx 4 mg In 250 ml @ Titrate IV .Q0M [facility] Rx#: [id number] Propofol 500 mg In Empty 150 214.595 50 Bag 1 bag @ Titrate IV . Q0M DUSTIN Rx#:[id number] Propofol 500 mg In Empty 14.913 Bag 1 bag @ Titrate IV . Q0M STA Rx#:[id number] Output: Urine 15 236 225 Other: Voiding Method Indwelling Catheter Indwelling Catheter # Bowel Movements 0 0 ABP, PAP, CO, CI - Last Documented Arterial Blood Pressure 137/42 - Exam Morbidly obese, calm and comfortable, sedated on a mechanical ventilator, orogastric and orotracheal tube are both in place.Head exam was generally normal. There was no scleral icterus or corneal arcus. Mucous membranes were moist. Neck is supple and short and the patient has a thick neck with double changes. Orogastric and orotracheal tube are both in place. No neck stiffness. JVDs cannot be accurately appreciated. Lung sounds are diminished bilaterally and there is diffuse extremity wheezes throughout the lung manuel along with prolongation of x-rays of breathing.Cardiac exam revealed the PMI to be normally situated and sized. The rhythm was regular and no extrasystoles were noted during several minutes of auscultation. The first and second heart sounds were normal and physiologic splitting of the second heart sound was noted. There were no murmurs, rubs, clicks, or gallops.Abdominal exam revealed normal bowel sounds. The abdomen was soft, non-tender, and without masses, organomegaly, or appreciable enlargement of the abdominal aorta. Patient is obese and orders cannot be accurately palpated. Extremities reveal diminished pulses. There is no cyanosis or clubbing. Neurologically, the patient is sedated with Diprivan. Pupils are equal and reactive to light. Based on the reported history the patient is flaccid weakness in the right upper extremity secondary to previous stroke. No facial asymmetry at this point. She has a positive gag. She has a positive light reflex although sluggish. She is not withdrawing to painful stimuli. No clonus. No Babinski. - Labs CBC & Chem 7: 12/04/16 04:00 12/04/16 04:00 Labs: Abnormal Lab Results - Last 24 Hours (Table) 12/03/16 12/03/16 12/03/16 Range/Units 12:36 12:36 12:36 WBC 23.6 H (3.8-10.6) k/uL RBC 3.41 L (3.80-5.40) m/uL Hgb 9.3 L (11.4-16.0) gm/dL Hct 30.7 L (34.0-46.0) % MCHC 30.4 L (31.0-37.0) g/dL RDW 18.2 H (11.5-15.5) % Neutrophils # 21.4 H (1.3-7.7) k/uL Lymphocytes # 0.4 L (1.0-4.8) k/uL Monocytes # 1.4 H (0-1.0) k/uL PT (9.0-12.0) sec APTT (22.0-30.0) sec ABG pH (7.35-7.45) ABG pCO2 (35-45) mmHg ABG pO2 (83-108) mmHg Sodium (137-145) mmol/L Chloride (98-107) mmol/L Carbon Dioxide (22-30) mmol/L BUN (7-17) mg/dL Creatinine (0.52-1.04) mg/dL Glucose (74-99) mg/dL POC Glucose (mg/dL) (75-99) mg/dL Hemoglobin A1c 6.8 H (4.2-6.1) % Calcium (8.4-10.2) mg/dL Phosphorus (2.5-4.5) mg/dL Troponin I 0.142 H* (0.000-0.034) ng/mL Total Protein (6.3-8.2) g/dL Albumin (3.5-5.0) g/dL 12/03/16 12/03/16 12/03/16 Range/Units 13:15 14:15 15:16 WBC (3.8-10.6) k/uL RBC (3.80-5.40) m/uL Hgb (11.4-16.0) gm/dL Hct (34.0-46.0) % MCHC (31.0-37.0) g/dL RDW (11.5-15.5) % Neutrophils # (1.3-7.7) k/uL Lymphocytes # (1.0-4.8) k/uL Monocytes # (0-1.0) k/uL PT (9.0-12.0) sec APTT (22.0-30.0) sec ABG pH 7.29 L (7.35-7.45) ABG pCO2 47 H (35-45) mmHg ABG pO2 81 L (83-108) mmHg Sodium (137-145) mmol/L Chloride (98-107) mmol/L Carbon Dioxide (22-30) mmol/L BUN (7-17) mg/dL Creatinine (0.52-1.04) mg/dL Glucose (74-99) mg/dL POC Glucose (mg/dL) 346 H 285 H (75-99) mg/dL Hemoglobin A1c (4.2-6.1) % Calcium (8.4-10.2) mg/dL Phosphorus (2.5-4.5) mg/dL Troponin I (0.000-0.034) ng/mL Total Protein (6.3-8.2) g/dL Albumin (3.5-5.0) g/dL 12/03/16 12/03/16 12/03/16 Range/Units 15:18 16:59 18:03 WBC (3.8-10.6) k/uL RBC (3.80-5.40) m/uL Hgb (11.4-16.0) gm/dL Hct (34.0-46.0) % MCHC (31.0-37.0) g/dL RDW (11.5-15.5) % Neutrophils # (1.3-7.7) k/uL Lymphocytes # (1.0-4.8) k/uL Monocytes # (0-1.0) k/uL PT (9.0-12.0) sec APTT (22.0-30.0) sec ABG pH (7.35-7.45) ABG pCO2 (35-45) mmHg ABG pO2 (83-108) mmHg Sodium (137-145) mmol/L Chloride (98-107) mmol/L Carbon Dioxide (22-30) mmol/L BUN (7-17) mg/dL Creatinine (0.52-1.04) mg/dL Glucose (74-99) mg/dL POC Glucose (mg/dL) 183 H 218 H 196 H (75-99) mg/dL Hemoglobin A1c (4.2-6.1) % Calcium (8.4-10.2) mg/dL Phosphorus (2.5-4.5) mg/dL Troponin I (0.000-0.034) ng/mL Total Protein (6.3-8.2) g/dL Albumin (3.5-5.0) g/dL 12/03/16 12/03/16 12/03/16 Range/Units 18:59 19:45 20:31 WBC (3.8-10.6) k/uL RBC (3.80-5.40) m/uL Hgb (11.4-16.0) gm/dL Hct (34.0-46.0) % MCHC (31.0-37.0) g/dL RDW (11.5-15.5) % Neutrophils # (1.3-7.7) k/uL Lymphocytes # (1.0-4.8) k/uL Monocytes # (0-1.0) k/uL PT (9.0-12.0) sec APTT 32.4 H (22.0-30.0) sec ABG pH (7.35-7.45) ABG pCO2 (35-45) mmHg ABG pO2 (83-108) mmHg Sodium (137-145) mmol/L Chloride (98-107) mmol/L Carbon Dioxide (22-30) mmol/L BUN (7-17) mg/dL Creatinine (0.52-1.04) mg/dL Glucose (74-99) mg/dL POC Glucose (mg/dL) 194 H 209 H (75-99) mg/dL Hemoglobin A1c (4.2-6.1) % Calcium (8.4-10.2) mg/dL Phosphorus (2.5-4.5) mg/dL Troponin I (0.000-0.034) ng/mL Total Protein (6.3-8.2) g/dL Albumin (3.5-5.0) g/dL 12/03/16 12/03/16 12/04/16 Range/Units 21:41 22:50 00:10 WBC (3.8-10.6) k/uL RBC (3.80-5.40) m/uL Hgb (11.4-16.0) gm/dL Hct (34.0-46.0) % MCHC (31.0-37.0) g/dL RDW (11.5-15.5) % Neutrophils # (1.3-7.7) k/uL Lymphocytes # (1.0-4.8) k/uL Monocytes # (0-1.0) k/uL PT (9.0-12.0) sec APTT (22.0-30.0) sec ABG pH (7.35-7.45) ABG pCO2 (35-45) mmHg ABG pO2 (83-108) mmHg Sodium (137-145) mmol/L Chloride (98-107) mmol/L Carbon Dioxide (22-30) mmol/L BUN (7-17) mg/dL Creatinine (0.52-1.04) mg/dL Glucose (74-99) mg/dL POC Glucose (mg/dL) 219 H 209 H 213 H (75-99) mg/dL Hemoglobin A1c (4.2-6.1) % Calcium (8.4-10.2) mg/dL Phosphorus (2.5-4.5) mg/dL Troponin I (0.000-0.034) ng/mL Total Protein (6.3-8.2) g/dL Albumin (3.5-5.0) g/dL 12/04/16 12/04/16 12/04/16 Range/Units 01:36 03:45 04:00 WBC 17.1 H (3.8-10.6) k/uL RBC 3.15 L (3.80-5.40) m/uL Hgb 8.6 L (11.4-16.0) gm/dL Hct 26.0 L (34.0-46.0) % MCHC (31.0-37.0) g/dL RDW 18.4 H (11.5-15.5) % Neutrophils # 16.0 H (1.3-7.7) k/uL Lymphocytes # 0.6 L (1.0-4.8) k/uL Monocytes # (0-1.0) k/uL PT (9.0-12.0) sec APTT (22.0-30.0) sec ABG pH (7.35-7.45) ABG pCO2 (35-45) mmHg ABG pO2 (83-108) mmHg Sodium (137-145) mmol/L Chloride (98-107) mmol/L Carbon Dioxide (22-30) mmol/L BUN (7-17) mg/dL Creatinine (0.52-1.04) mg/dL Glucose (74-99) mg/dL POC Glucose (mg/dL) 184 H 191 H (75-99) mg/dL Hemoglobin A1c (4.2-6.1) % Calcium (8.4-10.2) mg/dL Phosphorus (2.5-4.5) mg/dL Troponin I (0.000-0.034) ng/mL Total Protein (6.3-8.2) g/dL Albumin (3.5-5.0) g/dL 12/04/16 12/04/16 12/04/16 Range/Units 04:00 04:00 04:00 WBC (3.8-10.6) k/uL RBC (3.80-5.40) m/uL Hgb (11.4-16.0) gm/dL Hct (34.0-46.0) % MCHC (31.0-37.0) g/dL RDW (11.5-15.5) % Neutrophils # (1.3-7.7) k/uL Lymphocytes # (1.0-4.8) k/uL Monocytes # (0-1.0) k/uL PT (9.0-12.0) sec APTT 55.5 H (22.0-30.0) sec ABG pH (7.35-7.45) ABG pCO2 (35-45) mmHg ABG pO2 (83-108) mmHg Sodium 146 H (137-145) mmol/L Chloride 114 H (98-107) mmol/L Carbon Dioxide 20 L (22-30) mmol/L BUN 48 H (7-17) mg/dL Creatinine 2.70 H (0.52-1.04) mg/dL Glucose 169 H (74-99) mg/dL POC Glucose (mg/dL) (75-99) mg/dL Hemoglobin A1c (4.2-6.1) % Calcium 8.0 L (8.4-10.2) mg/dL Phosphorus 5.0 H (2.5-4.5) mg/dL Troponin I (0.000-0.034) ng/mL Total Protein 5.1 L (6.3-8.2) g/dL Albumin 2.6 L (3.5-5.0) g/dL 12/04/16 12/04/16 12/04/16 Range/Units 04:00 05:38 06:39 WBC (3.8-10.6) k/uL RBC (3.80-5.40) m/uL Hgb (11.4-16.0) gm/dL Hct (34.0-46.0) % MCHC (31.0-37.0) g/dL RDW (11.5-15.5) % Neutrophils # (1.3-7.7) k/uL Lymphocytes # (1.0-4.8) k/uL Monocytes # (0-1.0) k/uL PT 12.1 H (9.0-12.0) sec APTT (22.0-30.0) sec ABG pH (7.35-7.45) ABG pCO2 (35-45) mmHg ABG pO2 (83-108) mmHg Sodium (137-145) mmol/L Chloride (98-107) mmol/L Carbon Dioxide (22-30) mmol/L BUN (7-17) mg/dL Creatinine (0.52-1.04) mg/dL Glucose (74-99) mg/dL POC Glucose (mg/dL) 177 H 163 H (75-99) mg/dL Hemoglobin A1c (4.2-6.1) % Calcium (8.4-10.2) mg/dL Phosphorus (2.5-4.5) mg/dL Troponin I (0.000-0.034) ng/mL Total Protein (6.3-8.2) g/dL Albumin (3.5-5.0) g/dL 12/04/16 12/04/16 12/04/16 Range/Units 08:10 09:02 10:21 WBC (3.8-10.6) k/uL RBC (3.80-5.40) m/uL Hgb (11.4-16.0) gm/dL Hct (34.0-46.0) % MCHC (31.0-37.0) g/dL RDW (11.5-15.5) % Neutrophils # (1.3-7.7) k/uL Lymphocytes # (1.0-4.8) k/uL Monocytes # (0-1.0) k/uL PT (9.0-12.0) sec APTT (22.0-30.0) sec ABG pH (7.35-7.45) ABG pCO2 (35-45) mmHg ABG pO2 (83-108) mmHg Sodium (137-145) mmol/L Chloride (98-107) mmol/L Carbon Dioxide (22-30) mmol/L BUN (7-17) mg/dL Creatinine (0.52-1.04) mg/dL Glucose (74-99) mg/dL POC Glucose (mg/dL) 174 H 167 H 160 H (75-99) mg/dL Hemoglobin A1c (4.2-6.1) % Calcium (8.4-10.2) mg/dL Phosphorus (2.5-4.5) mg/dL Troponin I (0.000-0.034) ng/mL Total Protein (6.3-8.2) g/dL Albumin (3.5-5.0) g/dL 12/04/16 Range/Units 12:09 WBC (3.8-10.6) k/uL RBC (3.80-5.40) m/uL Hgb (11.4-16.0) gm/dL Hct (34.0-46.0) % MCHC (31.0-37.0) g/dL RDW (11.5-15.5) % Neutrophils # (1.3-7.7) k/uL Lymphocytes # (1.0-4.8) k/uL Monocytes # (0-1.0) k/uL PT (9.0-12.0) sec APTT (22.0-30.0) sec ABG pH (7.35-7.45) ABG pCO2 (35-45) mmHg ABG pO2 (83-108) mmHg Sodium (137-145) mmol/L Chloride (98-107) mmol/L Carbon Dioxide (22-30) mmol/L BUN (7-17) mg/dL Creatinine (0.52-1.04) mg/dL Glucose (74-99) mg/dL POC Glucose (mg/dL) 161 H (75-99) mg/dL Hemoglobin A1c (4.2-6.1) % Calcium (8.4-10.2) mg/dL Phosphorus (2.5-4.5) mg/dL Troponin I (0.000-0.034) ng/mL Total Protein (6.3-8.2) g/dL Albumin (3.5-5.0) g/dL Microbiology - Last 24 Hours (Table) 12/03/16 07:30 Blood Culture - Preliminary Blood No Growth after 24 hours 12/03/16 08:51 Urine Culture - Preliminary Urine,Catheterized Assessment and Plan Plan: Assessment 1 acute cardio pulmonary arrest. Exact cause is not clear. It's possible that the patient had a combination of COPD and CHF exacerbation as the patient was found to be in acute pulmonary edema at a time of arrival. The patient was down for a total of 20 minutes during which she was given epinephrine and bicarb drip. The patient was in asystole./PEA 2 acute respiratory failure secondary to above, currently intubated on mechanical ventilator 3 acute decompensated heart failure and pulmonary edema 4 acute COPD exacerbation with increased bronchospasm wheezing and elevated airway pressures 5 acute shock. Rule out cardiogenic shock post cardiac arrest , improved on no pressors 6 chronic renal failure, rule out a component of acute kidney injury on top of chronic renal failure, urine output is improving and the creatinine is on the rise 7 CVA, history of with some residual right-sided weakness 8 possible hypoxic/anoxic encephalopathy post cardiac arrest, and this is less likely clinically the patient was given a sedation holiday and she woke up nicely and she was following commands 9 units icterus cancer history of 10 CHF with diastolic dysfunction with a preserved LV function of 55% and secondary pulmonary hypertension 11 coronary artery disease with a recent cardiac catheterization showing patent stents to RCA and left main 12 diabetes mellitus type 2 13 hyperlipidemia 14 obesity BMI of 42 15 fibromyalgia 16 hyperlipidemia 17 hypothyroidism 8 suspected urinary tract infection 19 depression Plan The patient is critically ill. The encouraging news today is that the patient was given a sedation holiday and she was able to open up her eyes and follows some simple commands. She is back on sedation and will be kept on a mechanical ventilator. She will have her FiO2 weaned down. She'll the Lasix drip. The patient is also of norepinephrine infusion and she is off pressors. Monitor the renal function. Monitor electrolytes. Echocardiogram if needed in a.m. Continued IV heparin. Continue IV Zosyn. Initiate tube feeds. Continue optimizing COPD with accommodation bronchial dilators and steroids. No weaning trials for today. We will reevaluate this patient in a.m. Is a critically care evaluation that was done and 40 minutes. Family was updated on the condition. Time with Patient: Greater than 30
[2016-12-04 13:57] LABS: Glucose,Whole Blood 167 mg/dL (75-99)
--- NOTE | 2016-12-04 15:58 | P.PN ---
Progress Note - Text DATE OF SERVICE: 12/04/2016 PRESENTING COMPLAINT: Shortness of breath, cardiac arrest INTERVAL HISTORY: This patient presented after developing shortness of breath and subsequent cardiac arrest. Today remains intubated, sedation holiday given to evaluate neurologic status, followed simple straightforward commands. Urine output improving. Ventilator settings: Assist control/volume control, rate 15, FiO2 80%, PEEP 5, MEDICATIONS: Propofol, insulin drip, Levophed, Lasix drip, heparin drip, Protonix, Heart rhythm: sinus rhythm rate 70's REVIEW OF SYSTEMS: Patient intubated. CURRENT MEDICATIONS As detailed above PHYSICAL EXAM: VITAL SIGNS: Temperature 99.6, pulse 64, respirations 23, blood pressure 111/58 , oxygen saturation 100% on FiO2 of 80% on the mechanical vent GENERAL APPEARANCE:. Lying in bed, breathing comfortably on the vent. EYES: Pupils equal. Conjunctiva normal. NECK: JVD unable to assess. Mass not palpable. RESPIRATORY: Respiratory effort increased, on mechanical ventilation Lungs rhonchi and wheezing noted . CARDIOVASCULAR: First and second sounds noted. Moderate edema. ABDOMEN: Soft. Liver and spleen not palpable. No tenderness. No mass palpable. PSYCHIATRY: Unable to assess NEUROLOGICAL: Pupils sluggish secondary to sedation, withdraws to noxious stimuli, sedation lifted able to follow simple commands. INVESTIGATIONS: White blood cell count 17.1, hemoglobin 8.6, platelet count 220, sodium 146, BUNs 48, creatinine 2.70, calcium 8.0, Chest x-ray: Revealed medically with persistent [id number] sized bilateral pleural effusions. ASSESSMENT: 1. Acute on chronic congestive heart failure exacerbation from diastolic dysfunction, secondary to coronary artery disease, ejection fraction 55% with a recent cardiac catheterization. 2. Cardiac arrest in a patient with underlying coronary artery disease. 3. Chronic obstructive pulmonary disease and an ex-smoker. 4. Chronic kidney disease stage III from diabetic nephropathy and hypertensive nephrosclerosis. 5. Chronic menorrhagia pending outpatient surgery. 6. Chronic diverticulosis. 7. 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 8. Essential hypertension. 9. Right arm weakness from old stroke. 10. Diabetes mellitus type 2 chronically on insulin. 11. Obesity, body mass index greater than 40, morbid type. 12. Coronary artery disease with stent to the left anterior descending artery and right coronary artery. 13. Hyperlipidemia. 14. Fibromyalgia. 15. Primary osteoarthritis of multiple joints bilateral 16. Urinary stress incontinence 17. Depression not otherwise specified 18. Acute hypoxic respiratory failure secondary to acute pulmonary edema from underlying coronary artery disease and congestive heart failure, on ventilator support. 19. Recurrent chronic blood loss anemia secondary to menorrhagia. 20. Acute cardiogenic shock from underlying coronary artery diseaseon vasopressor support. 21. Urinary tract infection, likely from urinary stasis, present on admission. PLAN: Continue on current drips , await sensitivities for urine culture to appropriately dose antibiotics. Plan of care discussed at the bedside with and sister and Dr. Aguila. Prognosis guarded. Patient gee understands. TELEMETRY TECHNICIAN statement: Patient was seen and examined by nurse practitioner Connie Livingston in all elements of the case discussed with attending is Dr. Aguila
[2016-12-04 16:40] LABS: Glucose,Whole Blood 165 mg/dL (75-99)
[2016-12-04 18:09] LABS: Glucose,Whole Blood 182 mg/dL (75-99)
[2016-12-04 21:45] LABS: Glucose,Whole Blood 158 mg/dL (75-99)
[2016-12-05 00:15] LABS: Glucose,Whole Blood 178 mg/dL (75-99)
[2016-12-05] MEDS: PROPOFOL 500 MG in EMPTY BAG 1 BAG IV SCH ×16 (00:20→22:29)
[2016-12-05 02:09] LABS: Glucose,Whole Blood 176 mg/dL (75-99)
[2016-12-05] MEDS: FUROSEMIDE 250 MG in SODIUM CHLORIDE 0.9% 225 ML IVP SCH (03:00)
[2016-12-05 04:40] LABS: Glucose,Whole Blood 174 mg/dL (75-99)
[2016-12-05 05:35] LABS: ABG Base Excess -5.2 mmol/L; ABG HCO3 19 mmol/L (21-25); ABG PCO2 34 mmHg (35-45); ABG PH 7.37 (7.35-7.45); ABG PO2 97 mmHg (83-108); ABG TCO2 20 mmol/L (19-24)
[2016-12-05 06:12] LABS: Potassium 4.2 mmol/L (3.5-5.1); Total Bilirubin 0.3 mg/dL (0.2-1.3); Total Protein 5.3 g/dL (6.3-8.2)
[2016-12-05 06:21] LABS: Anisocytosis Slight; Basophils % (A) 0 %; CH 26.1; CHCM 30.1; Eosinophils % (A) 0 %; HGB 7.3 gm/dL (11.4-16.0); Hypochromasia Marked; Luc # (Auto) 0.07; Luc % (Auto) 1; Lymphocytes # (A) 0.4 k/uL (1.0-4.8); Lymphocytes % (A) 4 %; MCH 26.6 pg (25.0-35.0); MCHC 30.6 g/dL (31.0-37.0); MCV 87.1 fL (80.0-100.0); Mean Platelet Volume 7.9; Monocytes # (A) 0.4 k/uL (0-1.0); Monocytes % (A) 4 %; Neutrophils # (A) 8.8 k/uL (1.3-7.7); Neutrophils % (A) 91 %; Poikilocytosis Moderate; RBC 2.76 m/uL (3.80-5.40); RDW 18.4 % (11.5-15.5); WBC 9.7 k/uL (3.8-10.6); WBC (Perox) 9.64
[2016-12-05 06:29] LABS: INR 1.1 (<1.1); Partial Thromboplastin Time 46.1 sec (22.0-30.0); Prothrombin Time 11.4 sec (9.0-12.0)
[2016-12-05 06:34] LABS: Magnesium 1.9 mg/dL (1.6-2.3)
[2016-12-05] MEDS: methylPREDNISolone SOD SUCCI 125 MG/2 ML VIAL IV SCH ×5 (06:47→23:02)
[2016-12-05] MEDS: HEPARIN SODIUM,PORCINE/D5W PMX 25,000 UNIT in DEXTROSE/WATER 1 500ML.BAG IV SCH (06:50)
[2016-12-05 06:56] LABS: Glucose,Whole Blood 164 mg/dL (75-99)
--- NOTE | 2016-12-05 07:04 | XR ---
EXAMINATION TYPE: XR chest 1V portable DATE OF EXAM: 12/05/2016 COMPARISON: NONE HISTORY: Tube placement FINDINGS: There are bilateral pleural effusions with cardiomegaly and bibasilar infiltrate. There is a diffuse interstitial pattern. ET and NG tubes stable. IMPRESSION: 1. Persistent bilateral airspace disease and pleural effusion. Differential includes CHF or diffuse p neumonia. ARDS not excluded.
[2016-12-05 07:26] LABS: Glucose,Whole Blood 146 mg/dL (75-99)
[2016-12-05] MEDS: IPRATROPIUM-ALBUTEROL 3 ML NEB INHALATION SCH ×4 (07:39→19:51)
[2016-12-05] MEDS: CALCIUM ACETATE 667 MG CAP PO SCH ×3 (08:03→18:24)
[2016-12-05] MEDS: PANTOPRAZOLE 40 MG/10 ML VIAL IV SCH (08:04)
[2016-12-05] MEDS: CHLORHEXIDINE GLUCONATE 15 ML CUP MUCOUS MEM SCH ×2 (08:04→20:37)
[2016-12-05] MEDS: MAGNESIUM SULFATE-D5W PMX 1 GM in DEXTROSE/WATER 1 100ML.BAG IVPB SCH ×2 (08:26→10:18)
[2016-12-05 10:14] LABS: Glucose,Whole Blood 138 mg/dL (75-99)
--- NOTE | 2016-12-05 10:49 | PN ---
DATE OF SERVICE: 12/04/2016 ATTENDING NOTE: This patient was seen and evaluated by me earlier today. I reviewed the note of my nurse practitioner, Ms. Livingston. This is a patient who had a bit of admitted with acute pulmonary edema, cardiac arrest. Currently remains on the ventilator, at the bedside. Patient is on insulin, Levophed, Lasix and heparin drip. FiO2 did drop over 80%. On exam, lungs decreased breath sounds with crackles. CARDIOVASCULAR: Heart sounds irregular. ASSESSMENT: Multiple medical problems including congestive heart failure exacerbation, status post cardiac arrest, cardiogenic shock, acute urinary tract infection. PLAN: Continue current medication and treatment plan. Patient remains critically ill. Care was discussed with the who understands. Will follow. I reviewed the note of my nurse practitioner, Ms. Livingston, agreed with the same.
[2016-12-05 12:01] LABS: Glucose,Whole Blood 139 mg/dL (75-99)
[2016-12-05 14:18] LABS: Glucose,Whole Blood 146 mg/dL (75-99)
--- NOTE | 2016-12-05 14:54 | P.PN ---
Subjective Principal diagnosis: Acute cardiopulmonary arrest and acute respiratory failure This is a 66-year-old female patient who got admitted to the ED this morning with cardiopulmonary arrest. The patient has multiple medical problems and comorbidities. The patient has advanced COPD and she is an ex-smoker. She also has coronary artery disease with previous coronary interventions and stenting and most recently the patient had a cardiac catheterization that was done on 11/24/2016 and based on the cath, the patient had a patent stent to left main and RCA and there was no significant occlusion or anatomic obstruction. The patient's most recent echocardiogram also from November 2016 showed a preserved LV function with an ejection fraction of 50-55%. She suffers from chronic renal failure. Her baseline crit is around 1.58. She is morbidly obese. She has also various other comorbidities including chronic hypoxic arrest 30 failure, chronic diverticulosis, chronic gastritis, hypertension, previous history of stroke with right-sided weakness, hyperlipidemia, fibromyalgia and osteoarthritis. Her performance and functional status is been essentially very poor. Based on the reported history, the patient woke up this morning with significant shortness of breath. Her pulse ox was found to by in the low 80s by the . Note that the patient has home O2. Once the patient got loaded on the stretcher, the patient was found to be cardiac pulmonary arrest. At that point CPR was initiated. The patient was also bag and non-intubated in the field. The patient was on for approximately 20 minutes. During this time the patient received 5 rounds of epinephrine, 2 rounds of bicarb and ultimately on 7:19 AM, the patient's cardiac rhythm went back to sinus. In the emergency department the patient was intubated and placed on a mechanical ventilator. The patient was given a total of 2 L of IV fluids and subsequently she was found to be in acute pulmonary edema. CAT scan of the brain was done and was negative. Chest x-ray showed breath and pulmonary infiltrates typical of an underlying pulmonary edema. Currently the patient is a triple-lumen catheter in the right femoral vein. The patient is been resuscitated with IV fluids and pressors and currently she is on norepinephrine infusion running at 25 mics. She is also sedated on propofol at 10 mics. She is on a mechanical ventilator on assist control mode at the rate of 14, tidal volume of 450, FiO2 of 100% and a PEEP of 5. The blood gases showed a pH of 7.14 with a pCO2 of 72 and pO2 of 93. Peak air pressure quite elevated in the low 40s with a lower static airway pressure. The patient's lactic acid level is at 7.8. She is oliguric/anuric with minimal amount of urine output collected post Crenshaw catheter insertion. Note that she was given a dose of Lasix 40 push and the emergency department without any much success in terms of urine output. Her blood sugars are poorly controlled. Most recent blood sugar is above 300 and she'll be also started an insulin drip. On 12/04/2016, I'm seeing this patient in follow-up following her cardiac pulmonary arrest. Please refer to the details mentioned above in regards to her presentation. The patient's downtime was estimated to be around 20 minutes. I was able to given a sedation holiday this morning and the patient woke up nicely and she was able to follow simple commands. This was very reassuring and encouraging. She was not ready for any further weaning and based on that I put her back on sedation with Diprivan. She is still on a mechanical ventilator. She still in the 100% FiO2 with a PEEP of 5 and a tidal volume of 450. The blood gases showed no much improvement in his oxygenation, yet based on the nurse educator pulse oximeter analysis, was able to wean her down to 80% FiO2 and in the process of further bringing down FiO2 to maintain a saturation above 92%. Hemodynamically, she is off pressors completely. She is on Lasix drip at 5 mg an hour and she is producing adequate amount of urine output which seems to be improving. Her chest x-ray shows improvement in the volume status. There is development of bilateral pleural effusions. He was in a good location. Creatinine is up to 2.7. Rest of the electrodes are within normal limits with a mild hypernatremia of 146 On 12/05/2016, patient remains on mechanical ventilation, sedated, but according to the nurse who held sedation earlier, patient is arousable, follows simple instructions, hence that is reassuring that the patient did not at least sustained significant anoxic brain injury considering her prolonged cardiac arrest of more than 20 minutes. Patient is on mechanical ventilation, and her vent settings are tidal volume of 450 assist control rate of 24, PEEP of 5, FiO2 of 50%. Chest x-ray continues to show evidence of bilateral pleural effusions and congestive heart failure. Labs were reviewed hemoglobin is 7.3 WBC count is down to 9.7. ABG showed a pO2 of 97 pCO2 of 34 pH of 7.37. Renal profile seems to be worsening and I'm certain the patient must have developed acute tubular necrosis and acute kidney injury BUN is up to 56 creatinine is up to 3.50. Nephrology is addressing her acute renal failure. All her meds were reviewed, patient is now on insulin drip, his also on bronchodilators and IV steroids for her history of severe underlying COPD. Objective - Vital Signs Vital signs: Vital Signs Temp 98.5 F 12/05/16 12:00 Pulse 72 12/05/16 13:00 Resp 24 12/05/16 13:00 BP 139/52 12/05/16 13:00 Pulse Ox 94 L 12/05/16 13:00 Intake & Output 12/04/16 12/05/16 12/05/16 18:59 06:59 18:59 Intake Total 9798.306 1240.126 762.31 Output Total 560 1320 340 Balance 1109.799 311.126 422.31 Weight 105.7 kg 109.1 kg 109.1 kg Intake: IV 900 900 525 0.9 NS 900 900 525 Intake, IV Titration 769.799 731.126 237.31 Amount Furosemide 250 mg In 67.417 18.083 Sodium Chloride 0.9% 225 ml @ 5 MG/HR 5 mls/hr IVP .Q24H [facility] Rx#:[id number] Heparin Sodium,Porcine/ 351.960 259.046 D5w Pmx 25,000 unit In Dextrose/Water 1 500ml. bag @ 9.4 UNITS/KG/HR 20. 04 mls/hr IV .Q24H [facility] Rx #:[id number] Insulin Regular 100 unit 48.394 47.930 In Sodium Chloride 0.9% 100 ml @ Per Protocol IV .Q0M [facility]UST[facility] Rx#:[id number] Norepinephrin 16 mg-0.9% 52.028 Ns Pmx 16 mg In 250 ml @ Titrate IV .Q0M [facility]UST[facility] Rx#: [id number] Propofol 500 mg In Empty 250 406.067 237.31 Bag 1 bag @ Titrate IV . Q0M [facility] Rx#:[id number] Output: Gastric Drainage 600 Urine 560 720 340 Other: Voiding Method Indwelling Catheter Indwelling Catheter Indwelling Catheter # Bowel Movements 0 0 ABP, PAP, CO, CI - Last Documented Arterial Blood Pressure 156/41 - Exam Physical Exam: Revealed a 66-year-old female, obese, on mechanical ventilation, endotracheal tube is intact.orogastric tube is intact. HEENT:[Neck is supple.] [No neck masses.] [No thyromegaly.] [No JVD.]short obese neck is noted. Chest: [crackles at the bases bilaterally, some rhonchi were also noted. No wheezing.] Cardiac Exam: [Normal S1 and S2, no S3 gallop, no murmur.] Abdomen: [obese,Soft, nontender, no megaly, no rebound, no guarding, normal bowel sounds.] Extremities: [No clubbing, no edema, no cyanosis.] Neurological Exam: cannot be assessed, patient is on propofol drip. - Labs CBC & Chem 7: 12/05/16 05:05 12/05/16 05:00 Labs: Abnormal Lab Results - Last 24 Hours (Table) 12/04/16 12/04/16 12/04/16 Range/Units 16:39 18:07 21:43 RBC (3.80-5.40) m/uL Hgb (11.4-16.0) gm/dL Hct (34.0-46.0) % MCHC (31.0-37.0) g/dL RDW (11.5-15.5) % Neutrophils # (1.3-7.7) k/uL Lymphocytes # (1.0-4.8) k/uL APTT (22.0-30.0) sec ABG pCO2 (35-45) mmHg ABG HCO3 (21-25) mmol/L Chloride (98-107) mmol/L Carbon Dioxide (22-30) mmol/L BUN (7-17) mg/dL Creatinine (0.52-1.04) mg/dL Glucose (74-99) mg/dL POC Glucose (mg/dL) 165 H 182 H 158 H (75-99) mg/dL Calcium (8.4-10.2) mg/dL Phosphorus (2.5-4.5) mg/dL AST (14-36) U/L Total Protein (6.3-8.2) g/dL Albumin (3.5-5.0) g/dL 06/12/17 06/12/17 06/12/17 Range/Units 00:13 02:08 04:38 RBC (3.80-5.40) m/uL Hgb (11.4-16.0) gm/dL Hct (34.0-46.0) % MCHC (31.0-37.0) g/dL RDW (11.5-15.5) % Neutrophils # (1.3-7.7) k/uL Lymphocytes # (1.0-4.8) k/uL APTT (22.0-30.0) sec ABG pCO2 (35-45) mmHg ABG HCO3 (21-25) mmol/L Chloride (98-107) mmol/L Carbon Dioxide (22-30) mmol/L BUN (7-17) mg/dL Creatinine (0.52-1.04) mg/dL Glucose (74-99) mg/dL POC Glucose (mg/dL) 178 H 176 H 174 H (75-99) mg/dL Calcium (8.4-10.2) mg/dL Phosphorus (2.5-4.5) mg/dL AST (14-36) U/L Total Protein (6.3-8.2) g/dL Albumin (3.5-5.0) g/dL 12/05/16 12/05/16 12/05/16 Range/Units 05:00 05:05 05:05 RBC 2.76 L (3.80-5.40) m/uL Hgb 7.3 L (11.4-16.0) gm/dL Hct 24.0 L (34.0-46.0) % MCHC 30.6 L (31.0-37.0) g/dL RDW 18.4 H (11.5-15.5) % Neutrophils # 8.8 H (1.3-7.7) k/uL Lymphocytes # 0.4 L (1.0-4.8) k/uL APTT (22.0-30.0) sec ABG pCO2 (35-45) mmHg ABG HCO3 (21-25) mmol/L Chloride 110 H (98-107) mmol/L Carbon Dioxide 19 L (22-30) mmol/L BUN 56 H (7-17) mg/dL Creatinine 3.50 H (0.52-1.04) mg/dL Glucose 150 H (74-99) mg/dL POC Glucose (mg/dL) (75-99) mg/dL Calcium 8.0 L (8.4-10.2) mg/dL Phosphorus 8.0 H* (2.5-4.5) mg/dL AST 10 L (14-36) U/L Total Protein 5.3 L (6.3-8.2) g/dL Albumin 2.7 L (3.5-5.0) g/dL 12/05/16 12/05/16 12/05/16 Range/Units 05:05 05:26 06:55 RBC (3.80-5.40) m/uL Hgb (11.4-16.0) gm/dL Hct (34.0-46.0) % MCHC (31.0-37.0) g/dL RDW (11.5-15.5) % Neutrophils # (1.3-7.7) k/uL Lymphocytes # (1.0-4.8) k/uL APTT 46.1 H (22.0-30.0) sec ABG pCO2 34 L (35-45) mmHg ABG HCO3 19 L (21-25) mmol/L Chloride (98-107) mmol/L Carbon Dioxide (22-30) mmol/L BUN (7-17) mg/dL Creatinine (0.52-1.04) mg/dL Glucose (74-99) mg/dL POC Glucose (mg/dL) 164 H (75-99) mg/dL Calcium (8.4-10.2) mg/dL Phosphorus (2.5-4.5) mg/dL AST (14-36) U/L Total Protein (6.3-8.2) g/dL Albumin (3.5-5.0) g/dL 12/05/16 12/05/16 12/05/16 Range/Units 07:24 10:12 12:00 RBC (3.80-5.40) m/uL Hgb (11.4-16.0) gm/dL Hct (34.0-46.0) % MCHC (31.0-37.0) g/dL RDW (11.5-15.5) % Neutrophils # (1.3-7.7) k/uL Lymphocytes # (1.0-4.8) k/uL APTT (22.0-30.0) sec ABG pCO2 (35-45) mmHg ABG HCO3 (21-25) mmol/L Chloride (98-107) mmol/L Carbon Dioxide (22-30) mmol/L BUN (7-17) mg/dL Creatinine (0.52-1.04) mg/dL Glucose (74-99) mg/dL POC Glucose (mg/dL) 146 H 138 H 139 H (75-99) mg/dL Calcium (8.4-10.2) mg/dL Phosphorus (2.5-4.5) mg/dL AST (14-36) U/L Total Protein (6.3-8.2) g/dL Albumin (3.5-5.0) g/dL 12/05/16 Range/Units 14:16 RBC (3.80-5.40) m/uL Hgb (11.4-16.0) gm/dL Hct (34.0-46.0) % MCHC (31.0-37.0) g/dL RDW (11.5-15.5) % Neutrophils # (1.3-7.7) k/uL Lymphocytes # (1.0-4.8) k/uL APTT (22.0-30.0) sec ABG pCO2 (35-45) mmHg ABG HCO3 (21-25) mmol/L Chloride (98-107) mmol/L Carbon Dioxide (22-30) mmol/L BUN (7-17) mg/dL Creatinine (0.52-1.04) mg/dL Glucose (74-99) mg/dL POC Glucose (mg/dL) 146 H (75-99) mg/dL Calcium (8.4-10.2) mg/dL Phosphorus (2.5-4.5) mg/dL AST (14-36) U/L Total Protein (6.3-8.2) g/dL Albumin (3.5-5.0) g/dL Microbiology - Last 24 Hours (Table) 12/03/16 07:30 Blood Culture - Preliminary Blood No Growth after 48 hours 12/03/16 08:51 Urine Culture - Final Urine,Catheterized Klebsiella pneumoniae 12/04/16 16:10 Gram Stain - Preliminary Sputum Sputum Culture - Preliminary Assessment and Plan Plan: 1 acute cardio pulmonary arrest. Exact cause is not clear. It's possible that the patient had a combination of COPD and CHF exacerbation as the patient was found to be in acute pulmonary edema at a time of arrival. The patient was down for a total of 20 minutes during which she was given epinephrine and bicarb drip. The patient was in asystole./PEA 2 acute respiratory failure secondary to above, currently intubated on mechanical ventilator 3 acute decompensated heart failure and pulmonary edema 4 acute COPD exacerbation with increased bronchospasm wheezing and elevated airway pressures 5 acute shock. Rule out cardiogenic shock post cardiac arrest , improved on no pressors upon presentation. 6 chronic renal failure, rule out a component of acute kidney injury on top of chronic renal failure, urine output is improving and the creatinine is on the rise 7 CVA, history of with some residual right-sided weakness 8 possible hypoxic/anoxic encephalopathy post cardiac arrest, and this is less likely clinically the patient was given a sedation holiday and she woke up nicely and she was following commands 9 units icterus cancer history of 10 CHF with diastolic dysfunction with a preserved LV function of 55% and secondary pulmonary hypertension 11 coronary artery disease with a recent cardiac catheterization showing patent stents to RCA and left main 12 diabetes mellitus type 2 13 hyperlipidemia 14 obesity BMI of 42 15 fibromyalgia 16 hyperlipidemia 17 hypothyroidism 8 suspected urinary tract infection 19 depression Recommendation: Patient remains critically ill,no plans to wean or extubated the patient today, renal functioning is concerning to me, her pulmonary status is also marginal with significant pulmonary edema noted on the chest x-ray, and not to mention the patient has severe underlying COPD to begin with. My plan is to continue all present treatment plan including bronchodilators, diuretics, antibiotics, and we'll follow closely. Knowing trial today, discussed her condition with his sister at bedside. Critical care time is 40 minutes. Time with Patient: Greater than 30
[2016-12-05 15:55] LABS: Glucose,Whole Blood 134 mg/dL (75-99)
[2016-12-05] MEDS: PIPERACILLIN-TAZOBACTAM 3.375 GM in DEXTROSE/WATER 1 50ML.BAG IVPB SCH (16:12)
[2016-12-05 17:40] LABS: Anisocytosis Slight; CH 26.3; CHCM 31.4; HCT 21.7 % (34.0-46.0); HDW 4.53; Hypochromasia Marked; MCH 25.8 pg (25.0-35.0); MCHC 30.7 g/dL (31.0-37.0); MCV 83.8 fL (80.0-100.0); Mean Platelet Volume 8.4; Poikilocytosis Moderate; RBC 2.59 m/uL (3.80-5.40); WBC 6.9 k/uL (3.8-10.6)
[2016-12-05 17:44] LABS: HGB 6.7 gm/dL (11.4-16.0)
[2016-12-05 18:33] LABS: Glucose,Whole Blood 146 mg/dL (75-99)
--- NOTE | 2016-12-05 19:23 | P.PN ---
Progress Note - Text DATE OF SERVICE: 12/05/2016 PRESENTING COMPLAINT: Shortness of breath, cardiac arrest INTERVAL HISTORY: This patient presented after developing an acute exacerbation of CHF and subsequent cardiac arrest. Hemoglobin 6.7, 1 unit of packed red cells given Today remains intubated, comfortable on vent. . Ventilator settings: Assist control/volume control, rate 24, FiO2 50%, PEEP 5, MEDICATIONS: Propofol, insulin drip, Protonix, Heart rhythm: sinus rhythm rate 70's REVIEW OF SYSTEMS: Patient intubated. CURRENT MEDICATIONS As detailed above PHYSICAL EXAM: VITAL SIGNS: Temperature 98.8, pulse 69, respiratory rate 24, blood pressure 138 /50, oxygen saturation 97% on mechanical ventilation FiO2 50%. GENERAL APPEARANCE:. Lying in bed, breathing comfortably on the vent. EYES: Pupils equal. Conjunctiva normal. NECK: JVD unable to assess. Mass not palpable. RESPIRATORY: Respiratory effort increased, on mechanical ventilation Lungs rhonchi and wheezing noted . CARDIOVASCULAR: First and second sounds noted. Moderate edema. ABDOMEN: Soft. Liver and spleen not palpable. No tenderness. No mass palpable. PSYCHIATRY: Unable to assess NEUROLOGICAL: Pupils sluggish secondary to sedation, withdraws to noxious stimuli. INVESTIGATIONS: Hemoglobin 7.3, platelet count 185, sodium 144, potassium 4.2, BUN 56, creatinine 3.50, Accu-Cheks noted. Chest x-ray: Persistent bilateral airspace disease and pleural effusions. ASSESSMENT: 1. Acute on chronic congestive heart failure exacerbation from diastolic dysfunction, secondary to coronary artery disease, ejection fraction 55% with a recent cardiac catheterization, improving 2. Cardiac arrest in a patient with underlying coronary artery disease. 3. Chronic obstructive pulmonary disease and an ex-smoker. 4. Chronic kidney disease stage III from diabetic nephropathy and hypertensive nephrosclerosis. 5. Chronic menorrhagia pending outpatient surgery. 6. Chronic diverticulosis. 7. 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 8. Essential hypertension. 9. Right arm weakness from old stroke. 10. Diabetes mellitus type 2 chronically on insulin. 11. Obesity, body mass index greater than 40, morbid type. 12. Coronary artery disease with stent to the left anterior descending artery and right coronary artery. 13. Hyperlipidemia. 14. Fibromyalgia. 15. Primary osteoarthritis of multiple joints bilateral 16. Urinary stress incontinence 17. Depression not otherwise specified 18. Acute hypoxic respiratory failure secondary to acute pulmonary edema from underlying coronary artery disease and congestive heart failure, on ventilator support, improving. 19. Recurrent chronic blood loss anemia secondary to menorrhagia. 20. Acute cardiogenic shock from underlying coronary artery disease, improving. 21. Urinary tract infection, secondary to outflow obstruction, organism Klebsiella pneumoniae, present on admission. 22. Acute blood loss anemia, hemoglobin 6.7, secondary to chronic menorrhagia 1 unit packed red cells given. 23. Acute renal failure likely secondary to ATN/prerenal, sepsis and shock, worsening. PLAN: Continue on current drips , Zosyn started for UTI Plan of care discussed at the bedside with . Prognosis guarded. Patient understands. CONSTRUCTION CONSULTANT statement: Patient was seen and examined by nurse practitioner Connie Livingston in all elements of the case discussed with attending is Dr. Aguila
[2016-12-05 20:28] LABS: Glucose,Whole Blood 148 mg/dL (75-99)
[2016-12-05] MEDS: ALBUTEROL NEBULIZED 2.5 MG/3 ML INHALATION PRN (21:09)
--- NOTE | 2016-12-05 21:40 | XR ---
EXAMINATION TYPE: XR chest 1V portable DATE OF EXAM: 12/05/2016 COMPARISON: December 05, 2016 at 6:30 AM HISTORY: Decreased oxygen saturation TECHNIQUE: Portable AP supine radiograph FINDINGS: ET tube tip superimposed over the mid trachea at the level of the clavicles. NG tube prese nt, its tip passing caudal to the radiograph. EKG leads noted. Large bilateral pleural effusions are redemonstrated, silhouetting the hemidiaphragms bilaterally. Bi basilar lower lobe atelectasis redemonstrated. There is a fine reticular pattern of increased density throughout the upper and mid lung parenchyma, consistent with mild interstitial phase pulmonary edema. The cardiac silhouette size is at least mode rately enlarged. No evident pneumothorax. IMPRESSION: OVERALL SIMILAR LUNG INFLATION PATTERN WHEN COMPARED TO THE X-RAY EXAMINATION TAKEN AT 6:30 AM TODAY, WITH: 1. Bibasilar airlessness within the lower lobes likely passive atelectasis from the bilateral pleural effusions. 2. Mild interstitial phase pulmonary edema present, presumably cardiogenic etiology.
[2016-12-05] MEDS: INSULIN REGULAR 100 UNIT in SODIUM CHLORIDE 0.9% 100 ML IV SCH (21:57)
[2016-12-05 22:12] LABS: Glucose,Whole Blood 155 mg/dL (75-99)
[2016-12-05] MEDS ORDERED: ACETAMINOPHEN TAB 325 MG TAB PO PRN (22:24)
[2016-12-05] MEDS ORDERED: FUROSEMIDE 10 MG/ML 10 ML VIAL IV STA (22:25)
[2016-12-05] MEDS: metroNIDAZOLE-NS PMX 500 MG in SALINE 1 100ML.BAG IVPB SCH (23:02)
[2016-12-05 23:12] LABS: Glucose,Whole Blood 156 mg/dL (75-99)
[2016-12-06 00:22] LABS: Glucose,Whole Blood 151 mg/dL (75-99)
[2016-12-06] MEDS: PROPOFOL 500 MG in EMPTY BAG 1 BAG IV SCH ×16 (01:15→23:36)
[2016-12-06 02:08] LABS: Glucose,Whole Blood 143 mg/dL (75-99)
[2016-12-06] MEDS: PIPERACILLIN-TAZOBACTAM 3.375 GM in DEXTROSE/WATER 1 50ML.BAG IVPB SCH ×2 (03:18→17:26)
[2016-12-06 04:25] LABS: Glucose,Whole Blood 153 mg/dL (75-99)
[2016-12-06 04:55] LABS: Calcium 7.6 mg/dL (8.4-10.2); Potassium 4.4 mmol/L (3.5-5.1); Total Bilirubin 0.4 mg/dL (0.2-1.3); Total Protein 5.1 g/dL (6.3-8.2)
[2016-12-06 06:13] LABS: Glucose,Whole Blood 151 mg/dL (75-99)
[2016-12-06] MEDS: methylPREDNISolone SOD SUCCI 125 MG/2 ML VIAL IV SCH ×4 (06:17→23:47)
[2016-12-06 06:23] LABS: Anisocytosis Slight; Basophils % (A) 0 %; CH 25.6; CHCM 29.8; Eosinophils % (A) 0 %; HCT 21.9 % (34.0-46.0); HDW 4.16; Hypochromasia Marked; Luc # (Auto) 0.04; Luc % (Auto) 1; Lymphocytes # (A) 0.3 k/uL (1.0-4.8); Lymphocytes % (A) 6 %; MCH 26.5 pg (25.0-35.0); MCHC 30.7 g/dL (31.0-37.0); MCV 86.3 fL (80.0-100.0); Mean Platelet Volume 7.9; Monocytes # (A) 0.3 k/uL (0-1.0); Monocytes % (A) 5 %; Neutrophils # (A) 5.5 k/uL (1.3-7.7); Neutrophils % (A) 89 %; Poikilocytosis Moderate; RBC 2.53 m/uL (3.80-5.40); RDW 17.9 % (11.5-15.5); WBC 6.1 k/uL (3.8-10.6); WBC (Perox) 6.35
[2016-12-06 06:29] LABS: Magnesium 2.5 mg/dL (1.6-2.3)
[2016-12-06 06:33] LABS: Prothrombin Time 10.4 sec (9.0-12.0)
[2016-12-06 06:34] LABS: Phosphorous 8.6 mg/dL (2.5-4.5)
[2016-12-06 06:36] LABS: HGB 6.7 gm/dL (11.4-16.0)
[2016-12-06] MEDS: IPRATROPIUM-ALBUTEROL 3 ML NEB INHALATION SCH ×4 (07:26→19:43)
[2016-12-06 07:43] LABS: ABG PCO2 32 mmHg (35-45); ABG PO2 94 mmHg (83-108)
[2016-12-06 07:44] LABS: ABG Base Excess -4.7 mmol/L; ABG HCO3 19 mmol/L (21-25); ABG Oxygen Saturation 97.4 % (94-97); ABG TCO2 20 mmol/L (19-24)
--- NOTE | 2016-12-06 07:55 | PN ---
DATE OF SERVICE: 12/05/2016 ATTENDING NOTE: This patient was seen and examined by me this morning in the ICU. Reviewed the note of my nurse practitioner, Ms. Livingston, discussed additional findings below. Patient remains on the ventilator. Hemoglobin did drop to 6.7, given a unit of packed cells. Patient is off the Lasix drip, off the pressors, blood pressure is maintained. Renal function is going off. On exam, LUNGS: Decreased breath sounds. CARDIOVASCULAR: First and second sounds normal. LABS: Hemoglobin down to 6.7. The patient's creatinine has gone from 1.57 to 3.5. ASSESSMENT: 1. Acute on chronic congestive heart failure exacerbation, now compensated. 2. Acute renal failure combination of acute tubular necrosis and treated an old sepsis and shock. 3. Acute respiratory failure with ventilator support. PLAN: Lasix drip has been taken off. Prognosis remains guarded. Patient remains on antibiotics. Prognosis discussed with the . Will follow.
[2016-12-06 08:25] LABS: Glucose,Whole Blood 170 mg/dL (75-99)
[2016-12-06] MEDS: metroNIDAZOLE-NS PMX 500 MG in SALINE 1 100ML.BAG IVPB SCH ×3 (08:41→23:47)
[2016-12-06] MEDS: CALCIUM ACETATE 667 MG CAP PO SCH ×3 (08:41→17:26)
[2016-12-06] MEDS: CHLORHEXIDINE GLUCONATE 15 ML CUP MUCOUS MEM SCH ×2 (08:41→20:13)
[2016-12-06] MEDS: PANTOPRAZOLE 40 MG/10 ML VIAL IV SCH (08:41)
--- NOTE | 2016-12-06 08:53 | XR ---
EXAMINATION TYPE: XR chest 1V portable DATE OF EXAM: 12/06/2016 COMPARISON: 12/05/2016 INDICATION: Previous abnormal chest x-ray TECHNIQUE: Single frontal view of the chest is obtained. FINDINGS: The heart size is normal. The pulmonary vasculature is normal. There is a small to moderate left pleural effusion. Small right pleural effusion is present. Mild inf iltrate is at the right base. Endotracheal tube is present with the tip above the denise. This is stable in position. Nasogastric t ube transverses the thorax with tip in left upper quadrant of the abdomen. This is stable. IMPRESSION: 1. Small right and moderate left pleural effusion. 2. Mild atelectasis right base. 3. Lines and catheters discussed above
--- NOTE | 2016-12-06 09:08 | P.CONS ---
History of Present Illness - Reason for Consult Consult date: 12/06/16 Infection - History of Present Illness This is a 66-year-old female who was recently hospitalized November 23 through November 25 at which time she was treated for mildly elevated troponins. Stress test was negative. Echocardiogram revealed EF of 55-60%. She was also treated for acute blood loss anemia with 1 unit of packed RBCs due to her underlying uterine cancer for which she is supposed to have an hysterectomy. Patient was readmitted November 26 through December 01 which time she was treated for acute exacerbation of COPD and acute diastolic heart failure as well as acute non-ST elevated myocardial infarction and underwent a heart catheterization with Dr. Dacosta finding a patent stent in the proximal and mid right coronary artery, patent stent in the main coronary artery, mild disease in the left circumflex, intermediate disease in the proximal LAD with recommendations to maximize medical treatment. According to the records, patient developed shortness of breath with a low pulse ox and her called EMS. Once patient was picked up by EMS she went into cardiopulmonary arrest and CPR was started. Patient was intubated in the emergency center and subsequently admitted to the intensive care unit. Patient did receive IV fluids and levo fed which has been off for 24 hours. Patient was initially on IV push Lasix 1 and then Lasix drip which is also been discontinued. Heparin drip was initially started and that has been discontinued. Her temperature max is been 100.3. White count 23.6 and currently at 6.1. Patient has had a drop in her hemoglobin from 9.3-6.7 and she does continue to have mild vaginal bleeding. Platelet count initially 295 is now 146. Kidney function has worsened with acute kidney injury and acute tubular necrosis with underlying chronic kidney disease stage III for which nephrology has been consulted. Urinalysis was turbulent with blood large, leukoesterase large, nitrate negative, RBCs 56 and WBC greater than 182 with bacteria many. Urine cultures returned back positive for Klebsiella pneumoniae greater than 100,000 colonies. Patient was started on tube feedings yesterday and did start stooling this morning. Her urine output has been running 50-100 mL per hour regarding IV antibiotics, patient has been on Zosyn and Flagyl was added last evening. She does remain intubated and on mechanical ventilation and appears to be comfortable. Review of Systems ROS unobtainable: due to endotracheal tube, due to mental status Constitutional: Denies chills, Denies fever Eyes: denies blurred vision, denies pain Ears, nose, mouth and throat: Denies headache, Denies sore throat Cardiovascular: Denies chest pain, Denies shortness of breath Respiratory: Denies cough Gastrointestinal: Denies abdominal pain, Denies diarrhea, Denies nausea, Denies vomiting Genitourinary: Denies dysuria, Denies hematuria Musculoskeletal: Denies myalgias Integumentary: Denies pruritus, Denies rash Neurological: Denies numbness, Denies weakness Psychiatric: Denies anxiety, Denies depression Endocrine: Denies fatigue, Denies weight change Past Medical History Past Medical History: Asthma, Cancer, Heart Failure, COPD, CVA/TIA, Diabetes Mellitus, Eye Disorder, Fibromyalgia, GI Bleed, Hyperlipidemia, Hypertension, Myocardial Infarction ([place]), Osteoarthritis (OA), Pneumonia Additional Past Medical History / Comment(s): Obesity, chronic hypoxic respiratory failure, advanced COPD with chronic hypoxemia, chronic renal failure with a baseline creatinine of 1.5, diverticulosis, chronic gastritis with previous history of duodenal ectasia requiring dome plasma treatment, hypertension, CVA with residual right-sided weakness, diabetes mellitus type 2 maintained chronically on insulin, obesity with a BMI of 42, hyperlipidemia, hypo-myalgia, osteoarthritis, depression, preserved LV function with an ejection fraction of 55% and a component of diastolic heart failure, previous history of uterine cancer treated with radiation therapy, history of cystitis, history of vaginal bleeding, history of right femoral pseudoaneurysm, severe pulmonary hypertension, IBS, urinary incontinence, glaucoma, cataracts, chronic back pain, migraines Last Myocardial Infarction Date:: 06/12/15 History of Any Multi-Drug Resistant Organisms: None Reported Past Surgical History: Cholecystectomy, Heart Catheterization, Heart Catheterization With Stent Additional Past Surgical History / Comment(s): 06/12/15 Cardiac cath, 06/15/15 PTCA with stent mid L main, D&C X2, YRS AGO HAD A DEVICE IN FOR RADIATION TX FOR UTERINE CA THAT WAS SINCE REMOVED.EGD/COLONOSCOPY.02/18/16 heart cath 3 stents to rca Past Anesthesia/Blood Transfusion Reactions: Motion Sickness Additional Past Anesthesia/Blood Transfusion Reaction / Comm: CLAUSTROPHOBIA. Pt has had blood transfusion in past-no reaction to blood Date of Last Stent Placement:: 02/18/16 Past Psychological History: Anxiety, Depression Additional Psychological History / Comment(s): Pt resides with her spouse. She is basically wheel chair bound most of the time for the past several yrs. She at times ambulates with assistance or pushes her wheelchair. She feeds herself. She has a supportive family. She has a sister that helps with her bathing and her олег and spouse will help with her medication. Smoking Status: Former smoker Past Alcohol Use History: None Reported Additional Past Alcohol Use History / Comment(s): STARTED SMOKING AGE 20, STOPPED SMOKING PPD BUT WOULD BURN HALF OUT IN TIEN TRAY Past Drug Use History: None Reported - Past Family History Father Additional Family Medical History / Comment(s): WAS A DRINKER WHEN YOUNGER , LOST AN ARM IN THE SERVICE, PANCREATITIS, LIVER CANCER- from at age 56yrs. Mother Family Medical History: CVA/TIA Additional Family Medical History / Comment(s): HEART PROBLEMS, STARTED DRINKING AFTER OF HER , she of a ruptured liver at age 58 yrs. Medications and Allergies Home Medications Medication Instructions Recorded Confirmed Type Carvedilol [Coreg] 25 mg PO BID 08/07/16 12/03/16 History Insulin Aspart [NovoLOG] 20 unit SQ AC-TID 08/07/16 12/03/16 History Nitroglycerin Sl Tabs [Nitrostat] 0.4 mg SUBLINGUAL Q5M PRN 08/07/16 12/03/16 History Nystatin 100,000 Unit/gm Powd 1 applic TOPICAL BID PRN 08/26/16 12/03/16 History [Mycostatin Powder] Furosemide [Lasix] 40 mg PO BID 09/06/16 12/03/16 History Allopurinol [Zyloprim] 150 mg PO DAILY 11/23/16 12/03/16 History LORazepam [Ativan] 0.5 mg PO TID PRN 11/23/16 12/03/16 History Ergocalciferol [Vitamin D2 50,000 unit PO FR 11/26/16 12/03/16 History (DRISDOL)] Allergies Allergy/AdvReac Type Severity Reaction Status Date / Time hydralazine Allergy Severe Anaphylaxis Verified 12/03/16 10:30 codeine AdvReac Severe Verified 12/03/16 10:30 Sedation hydrocodone AdvReac Severe Verified 12/03/16 10:30 Sedation lisinopril AdvReac Cough Verified 12/03/16 10:30 Physical Exam Vitals: Vital Signs Temp Pulse Resp BP Pulse Ox 12/06/16 07:59 58 L 12/06/16 07:35 58 L 12/06/16 07:00 57 L 24 98 12/06/16 06:00 59 L 24 149/45 98 12/06/16 05:00 59 L 24 147/45 98 12/06/16 04:00 100.3 F H 61 24 139/44 99 12/06/16 03:00 63 23 140/57 98 12/06/16 02:00 63 20 126/41 98 12/06/16 01:00 64 23 140/41 97 12/06/16 00:00 99.8 F H 69 21 130/53 96 12/05/16 23:26 72 20 132/44 96 12/05/16 23:00 70 19 129/45 96 12/05/16 22:00 76 18 141/53 95 12/05/16 21:31 84 12/05/16 21:12 84 12/05/16 21:00 75 19 139/47 95 12/05/16 20:00 100.3 F H 73 23 163/55 94 L 12/05/16 19:59 73 12/05/16 19:51 73 12/05/16 19:00 74 21 166/62 96 12/05/16 18:00 68 8 L 139/43 97 12/05/16 17:00 67 23 136/52 97 12/05/16 16:50 24 12/05/16 16:00 67 24 139/42 97 12/05/16 15:18 67 12/05/16 15:10 67 12/05/16 15:00 68 23 135/50 97 12/05/16 14:00 69 23 146/45 96 12/05/16 13:00 72 24 139/52 94 L 12/05/16 12:00 98.5 F 70 24 145/46 94 L 12/05/16 11:52 67 12/05/16 11:37 69 12/05/16 11:00 69 24 133/58 99 12/05/16 10:00 72 24 117/41 96 12/05/16 09:00 73 25 H 165/69 96 Intake and Output 0612/06/16 12/06/16 22:59 06:59 14:59 Intake Total 1419.303 5049.615 219.333 Output Total 470 715 75 Balance 589.528 487.615 144.333 Intake: IV 600 700.0 75 0.9 NS 600 550 75 Piperacillin-Tazobactam 3 50.0 .375 gm In Dextrose/Water 1 50ml.bag @ 12.5 mls/hr IVPB Q12H [facility] Rx#: [id number] metroNIDAZOLE-NS PMX 500 100 mg In Saline 1 100ml.bag @ 100 mls/hr IVPB Q8HR DUSTIN Rx#:[id number] Intake, IV Titration 273.528 182.615 118.333 Amount Insulin Regular 100 unit 53.07 68.333 In Sodium Chloride 0.9% 100 ml @ Per Protocol IV .Q0M [facility]UST[facility] Rx#:[id number] Propofol 500 mg In Empty 220.458 182.615 50 Bag 1 bag @ Titrate IV . Q0M [facility] Rx#:[id number] Tube Feeding 156 260 26 Other 30 60 Output: Urine 470 715 75 Other: Voiding Method Indwelling Catheter Indwelling Catheter # Bowel Movements 0 Weight 109.1 kg 109 kg ABP, PAP, CO, CI - Last 8 Hours Arterial Blood Pressure 139/40 Arterial Blood Pressure 138/39 Arterial Blood Pressure 139/41 Arterial Blood Pressure 141/42 Arterial Blood Pressure 142/43 Arterial Blood Pressure 133/41 Arterial Blood Pressure 126/33 Gen: This is a morbidly obese 66-year-old female. She is intubated and on mechanical ventilation appears to be comfortable and in no distress. HEENT: Head is atraumatic, normocephalic. Sclerae is anicteric. Oral ET and gastric tube in place. NECK: Supple. No JVD. No lymphadenopathy. No thyromegaly. LUNGS: Diminished at the bases posteriorly, no wheezing. No intercostal retractions. HEART: Regular rate and rhythm. No murmur. ABDOMEN: Morbidly obese. Soft. Bowel sounds are present. No masses. No tenderness. No redness noted under breast, abdominal folds. EXTREMITIES: No pedal edema. Dorsalis pedis weak bilaterally. SCDs in place. NEUROLOGICAL: Patient is intubated and on mechanical ventilation. Results Results: Laboratory Results WBC 6.1 k/uL (3.8-10.6) 12/06/16 04:30 RBC 2.53 m/uL (3.80-5.40) L 12/06/16 04:30 Hgb 6.7 gm/dL (11.4-16.0) L* 12/06/16 04:30 Hct 21.9 % (34.0-46.0) L 12/06/16 04:30 MCV 86.3 fL (80.0-100.0) 12/06/16 04:30 MCH 26.5 pg (25.0-35.0) 12/06/16 04:30 MCHC 30.7 g/dL (31.0-37.0) L 12/06/16 04:30 RDW 17.9 % (11.5-15.5) H 12/06/16 04:30 Plt Count 146 k/uL (150-450) L 12/06/16 04:30 Neutrophils % 89 % 12/06/16 04:30 Lymphocytes % 6 % 12/06/16 04:30 Monocytes % 5 % 12/06/16 04:30 Eosinophils % 0 % 12/06/16 04:30 Basophils % 0 % 12/06/16 04:30 Neutrophils # 5.5 k/uL (1.3-7.7) 12/06/16 04:30 Lymphocytes # 0.3 k/uL (1.0-4.8) L 12/06/16 04:30 Monocytes # 0.3 k/uL (0-1.0) 12/06/16 04:30 Eosinophils # 0.0 k/uL (0-0.7) 12/06/16 04:30 Basophils # 0.0 k/uL (0-0.2) 12/06/16 04:30 Hypochromasia Marked 12/06/16 04:30 Poikilocytosis Moderate 12/06/16 04:30 Anisocytosis Slight 12/06/16 04:30 PT 10.4 sec (9.0-12.0) 12/06/16 04:30 INR 1.0 (<1.1) 12/06/16 04:30 APTT 46.1 sec (22.0-30.0) H 12/05/16 05:05 Sample Site [place] 12/06/16 07:25 ABG pH 7.40 (7.35-7.45) 12/06/16 07:25 ABG pCO2 32 mmHg (35-45) L 12/06/16 07:25 ABG pO2 94 mmHg (83-108) 12/06/16 07:25 ABG HCO3 19 mmol/L (21-25) L 12/06/16 07:25 ABG Total CO2 20 mmol/L (19-24) 12/06/16 07:25 ABG O2 Saturation 97.4 % (94-97) H 12/06/16 07:25 ABG Base Excess -4.7 mmol/L 12/06/16 07:25 FiO2 50 % 12/06/16 07:25 Sodium 143 mmol/L (137-145) 12/06/16 04:30 Potassium 4.4 mmol/L (3.5-5.1) 12/06/16 04:30 Chloride 113 mmol/L (98-107) H 12/06/16 04:30 Carbon Dioxide 18 mmol/L (22-30) L 12/06/16 04:30 Anion Gap 12 mmol/L 12/06/16 04:30 BUN 67 mg/dL (7-17) H 12/06/16 04:30 Creatinine 3.49 mg/dL (0.52-1.04) H 12/06/16 04:30 Est GFR (MDRD) Af Amer 16 (>60 ml/min/1.73 sqM) 12/06/16 04:30 Est GFR (MDRD) Non-Af 13 (>60 ml/min/1.73 sqM) 12/06/16 04:30 Glucose 142 mg/dL (74-99) H 12/06/16 04:30 POC Glucose (mg/dL) 170 mg/dL (75-99) H 12/06/16 08:20 POC Glu Closing Supervisor ID Ashely Jimenez 12/06/16 08:[address] Glu mg/dL 148 mg/dL 12/03/16 12:36 Hemoglobin A1c 6.8 % (4.2-6.1) H 12/03/16 12:36 Plasma Lactic Acid [place] 1.2 mmol/L (0.7-2.0) 12/03/16 12:36 Calcium 7.6 mg/dL (8.4-10.2) L 12/06/16 04:30 Phosphorus 8.6 mg/dL (2.5-4.5) H* 12/06/16 04:30 Magnesium 2.5 mg/dL (1.6-2.3) H 12/06/16 04:30 Total Bilirubin 0.4 mg/dL (0.2-1.3) 12/06/16 04:30 AST 5 U/L (14-36) L 12/06/16 04:30 ALT 25 U/L (9-52) 12/06/16 04:30 Alkaline Phosphatase 63 U/L (38-126) 12/06/16 04:30 Total Creatine Kinase 61 U/L (30-135) 12/03/16 07:30 CK-MB (CK-2) 1.2 ng/mL (0.0-2.4) 12/03/16 07:30 CK-MB (CK-2) Rel Index 2.0 12/03/16 07:30 Troponin I 0.142 ng/mL (0.000-0.034) H* 12/03/16 12:36 Total Protein 5.1 g/dL (6.3-8.2) L 12/06/16 04:30 Albumin 2.6 g/dL (3.5-5.0) L 12/06/16 04:30 Urine Color Yellow 12/03/16 08:51 Urine Appearance Turbid (Clear) H 12/03/16 08:51 Urine pH 6.0 (5.0-8.0) 12/03/16 08:[address] [place] 1.011 (1.001-1.035) 12/03/16 08:51 Urine Protein 3+ (Negative) H 12/03/16 08:51 Urine Glucose (UA) 3+ (Negative) H 12/03/16 08:51 Urine Ketones Negative (Negative) 12/03/16 08:51 Urine Blood Large (Negative) H 12/03/16 08:51 Urine Nitrite Negative (Negative) 12/03/16 08:51 Urine Bilirubin Negative (Negative) 12/03/16 08:51 Urine Urobilinogen <2.0 mg/dL (<2.0) 12/03/16 08:51 Ur Leukocyte Esterase Large (Negative) H 12/03/16 08:51 Urine RBC 56 /hpf (0-5) H 12/03/16 08:51 Urine WBC >182 /hpf (0-5) H 12/03/16 08:51 Urine Bacteria Many /hpf (None) H 12/03/16 08:51 Blood Type A Positive 12/05/16 18:00 Blood Type Recheck No 12/05/16 18:00 Antibody Screen POSITIVE 12/05/16 18:00 Antibody Identification Anti-K 12/05/16 18:00 Direct Antiglob Test Negative 12/05/16 18:00 Crossmatch See Detail 12/05/16 18:00 Spec Expiration Date 12/08/2016 - 229912/05/16 18:00 CBC & Chem 7: 12/08/16 04:45 12/08/16 04:45 Labs: Abnormal Lab Results - Last 24 Hours (Table) 12/05/16 12/05/16 12/05/16 Range/Units 10:12 12:00 14:16 RBC (3.80-5.40) m/uL Hgb (11.4-16.0) gm/dL Hct (34.0-46.0) % MCHC (31.0-37.0) g/dL RDW (11.5-15.5) % Plt Count (150-450) k/uL Lymphocytes # (1.0-4.8) k/uL ABG pCO2 (35-45) mmHg ABG HCO3 (21-25) mmol/L ABG O2 Saturation (94-97) % Chloride (98-107) mmol/L Carbon Dioxide (22-30) mmol/L BUN (7-17) mg/dL Creatinine (0.52-1.04) mg/dL Glucose (74-99) mg/dL POC Glucose (mg/dL) 138 H 139 H 146 H (75-99) mg/dL Calcium (8.4-10.2) mg/dL Phosphorus (2.5-4.5) mg/dL Magnesium (1.6-2.3) mg/dL AST (14-36) U/L Total Protein (6.3-8.2) g/dL Albumin (3.5-5.0) g/dL Crossmatch 12/05/16 12/05/16 12/05/16 Range/Units 15:51 17:35 18:00 RBC 2.59 L (3.80-5.40) m/uL Hgb 6.7 L* (11.4-16.0) gm/dL Hct 21.7 L (34.0-46.0) % MCHC 30.7 L (31.0-37.0) g/dL RDW 18.0 H (11.5-15.5) % Plt Count 129 L (150-450) k/uL Lymphocytes # (1.0-4.8) k/uL ABG pCO2 (35-45) mmHg ABG HCO3 (21-25) mmol/L ABG O2 Saturation (94-97) % Chloride (98-107) mmol/L Carbon Dioxide (22-30) mmol/L BUN (7-17) mg/dL Creatinine (0.52-1.04) mg/dL Glucose (74-99) mg/dL POC Glucose (mg/dL) 134 H (75-99) mg/dL Calcium (8.4-10.2) mg/dL Phosphorus (2.5-4.5) mg/dL Magnesium (1.6-2.3) mg/dL AST (14-36) U/L Total Protein (6.3-8.2) g/dL Albumin (3.5-5.0) g/dL Crossmatch See Detail 12/05/16 12/05/16 12/05/16 Range/Units 18:31 20:26 22:11 RBC (3.80-5.40) m/uL Hgb (11.4-16.0) gm/dL Hct (34.0-46.0) % MCHC (31.0-37.0) g/dL RDW (11.5-15.5) % Plt Count (150-450) k/uL Lymphocytes # (1.0-4.8) k/uL ABG pCO2 (35-45) mmHg ABG HCO3 (21-25) mmol/L ABG O2 Saturation (94-97) % Chloride (98-107) mmol/L Carbon Dioxide (22-30) mmol/L BUN (7-17) mg/dL Creatinine (0.52-1.04) mg/dL Glucose (74-99) mg/dL POC Glucose (mg/dL) 146 H 148 H 155 H (75-99) mg/dL Calcium (8.4-10.2) mg/dL Phosphorus (2.5-4.5) mg/dL Magnesium (1.6-2.3) mg/dL AST (14-36) U/L Total Protein (6.3-8.2) g/dL Albumin (3.5-5.0) g/dL Crossmatch 12/05/16 12/06/16 12/06/16 Range/Units 23:10 00:20 02:05 RBC (3.80-5.40) m/uL Hgb (11.4-16.0) gm/dL Hct (34.0-46.0) % MCHC (31.0-37.0) g/dL RDW (11.5-15.5) % Plt Count (150-450) k/uL Lymphocytes # (1.0-4.8) k/uL ABG pCO2 (35-45) mmHg ABG HCO3 (21-25) mmol/L ABG O2 Saturation (94-97) % Chloride (98-107) mmol/L Carbon Dioxide (22-30) mmol/L BUN (7-17) mg/dL Creatinine (0.52-1.04) mg/dL Glucose (74-99) mg/dL POC Glucose (mg/dL) 156 H 151 H 143 H (75-99) mg/dL Calcium (8.4-10.2) mg/dL Phosphorus (2.5-4.5) mg/dL Magnesium (1.6-2.3) mg/dL AST (14-36) U/L Total Protein (6.3-8.2) g/dL Albumin (3.5-5.0) g/dL Crossmatch 12/06/16 12/06/16 12/06/16 Range/Units 04:21 04:30 04:30 RBC 2.53 L (3.80-5.40) m/uL Hgb 6.7 L* (11.4-16.0) gm/dL Hct 21.9 L (34.0-46.0) % MCHC 30.7 L (31.0-37.0) g/dL RDW 17.9 H (11.5-15.5) % Plt Count 146 L (150-450) k/uL Lymphocytes # 0.3 L (1.0-4.8) k/uL ABG pCO2 (35-45) mmHg ABG HCO3 (21-25) mmol/L ABG O2 Saturation (94-97) % Chloride 113 H (98-107) mmol/L Carbon Dioxide 18 L (22-30) mmol/L BUN 67 H (7-17) mg/dL Creatinine 3.49 H (0.52-1.04) mg/dL Glucose 142 H (74-99) mg/dL POC Glucose (mg/dL) 153 H (75-99) mg/dL Calcium 7.6 L (8.4-10.2) mg/dL Phosphorus (2.5-4.5) mg/dL Magnesium (1.6-2.3) mg/dL AST 5 L (14-36) U/L Total Protein 5.1 L (6.3-8.2) g/dL Albumin 2.6 L (3.5-5.0) g/dL Crossmatch 12/06/16 12/06/16 12/06/16 Range/Units 04:30 06:11 07:25 RBC (3.80-5.40) m/uL Hgb (11.4-16.0) gm/dL Hct (34.0-46.0) % MCHC (31.0-37.0) g/dL RDW (11.5-15.5) % Plt Count (150-450) k/uL Lymphocytes # (1.0-4.8) k/uL ABG pCO2 32 L (35-45) mmHg ABG HCO3 19 L (21-25) mmol/L ABG O2 Saturation 97.4 H (94-97) % Chloride (98-107) mmol/L Carbon Dioxide (22-30) mmol/L BUN (7-17) mg/dL Creatinine (0.52-1.04) mg/dL Glucose (74-99) mg/dL POC Glucose (mg/dL) 151 H (75-99) mg/dL Calcium (8.4-10.2) mg/dL Phosphorus 8.6 H* (2.5-4.5) mg/dL Magnesium 2.5 H (1.6-2.3) mg/dL AST (14-36) U/L Total Protein (6.3-8.2) g/dL Albumin (3.5-5.0) g/dL Crossmatch 12/06/16 Range/Units 08:20 RBC (3.80-5.40) m/uL Hgb (11.4-16.0) gm/dL Hct (34.0-46.0) % MCHC (31.0-37.0) g/dL RDW (11.5-15.5) % Plt Count (150-450) k/uL Lymphocytes # (1.0-4.8) k/uL ABG pCO2 (35-45) mmHg ABG HCO3 (21-25) mmol/L ABG O2 Saturation (94-97) % Chloride (98-107) mmol/L Carbon Dioxide (22-30) mmol/L BUN (7-17) mg/dL Creatinine (0.52-1.04) mg/dL Glucose (74-99) mg/dL POC Glucose (mg/dL) 170 H (75-99) mg/dL Calcium (8.4-10.2) mg/dL Phosphorus (2.5-4.5) mg/dL Magnesium (1.6-2.3) mg/dL AST (14-36) U/L Total Protein (6.3-8.2) g/dL Albumin (3.5-5.0) g/dL Crossmatch Microbiology - Last 24 Hours (Table) 12/03/16 07:30 Blood Culture - Preliminary Blood No Growth after 48 hours 12/03/16 08:51 Urine Culture - Final Urine,Catheterized Klebsiella pneumoniae Assessment and Plan Plan: This is a 66-year-old female who came into the hospital with cardiopulmonary arrest, acute hypoxic respiratory failure requiring intubation and mechanical ventilation, acute exacerbation of COPD, cardiogenic shock, acute kidney injury with acute tubular necrosis and underlying chronic kidney disease stage III with Klebsiella urinary tract infection and possible sepsis. Blood cultures currently showing no growth. Serum culture is in progress. She is on IV antibiotics in form of Flagy and Zosyn. She is scheduled for blood transfusion due to acute on chronic blood loss anemia due to uterine cancer. Continue supportive care. Further recommendations as patient progresses. The above dictated assessment and findings were discussed with Dr. Sahu. The impression and plan of care have been directed as dictated. Susi Hodges nurse practitioner acting as scribe for Dr. Sahu.
[2016-12-06 10:04] LABS: Glucose,Whole Blood 180 mg/dL (75-99)
--- NOTE | 2016-12-06 11:08 | P.PN ---
Subjective Principal diagnosis: Acute cardiopulmonary arrest and acute respiratory failure This is a 66-year-old female patient who got admitted to the ED this morning with cardiopulmonary arrest. The patient has multiple medical problems and comorbidities. The patient has advanced COPD and she is an ex-smoker. She also has coronary artery disease with previous coronary interventions and stenting and most recently the patient had a cardiac catheterization that was done on 11/24/2016 and based on the cath, the patient had a patent stent to left main and RCA and there was no significant occlusion or anatomic obstruction. The patient's most recent echocardiogram also from November 2016 showed a preserved LV function with an ejection fraction of 50-55%. She suffers from chronic renal failure. Her baseline crit is around 1.58. She is morbidly obese. She has also various other comorbidities including chronic hypoxic arrest 30 failure, chronic diverticulosis, chronic gastritis, hypertension, previous history of stroke with right-sided weakness, hyperlipidemia, fibromyalgia and osteoarthritis. Her performance and functional status is been essentially very poor. Based on the reported history, the patient woke up this morning with significant shortness of breath. Her pulse ox was found to by in the low 80s by the . Note that the patient has home O2. Once the patient got loaded on the stretcher, the patient was found to be cardiac pulmonary arrest. At that point CPR was initiated. The patient was also bag and non-intubated in the field. The patient was on for approximately 20 minutes. During this time the patient received 5 rounds of epinephrine, 2 rounds of bicarb and ultimately on 7:19 AM, the patient's cardiac rhythm went back to sinus. In the emergency department the patient was intubated and placed on a mechanical ventilator. The patient was given a total of 2 L of IV fluids and subsequently she was found to be in acute pulmonary edema. CAT scan of the brain was done and was negative. Chest x-ray showed breath and pulmonary infiltrates typical of an underlying pulmonary edema. Currently the patient is a triple-lumen catheter in the right femoral vein. The patient is been resuscitated with IV fluids and pressors and currently she is on norepinephrine infusion running at 25 mics. She is also sedated on propofol at 10 mics. She is on a mechanical ventilator on assist control mode at the rate of 14, tidal volume of 450, FiO2 of 100% and a PEEP of 5. The blood gases showed a pH of 7.14 with a pCO2 of 72 and pO2 of 93. Peak air pressure quite elevated in the low 40s with a lower static airway pressure. The patient's lactic acid level is at 7.8. She is oliguric/anuric with minimal amount of urine output collected post Crenshaw catheter insertion. Note that she was given a dose of Lasix 40 push and the emergency department without any much success in terms of urine output. Her blood sugars are poorly controlled. Most recent blood sugar is above 300 and she'll be also started an insulin drip. On 12/04/2016, I'm seeing this patient in follow-up following her cardiac pulmonary arrest. Please refer to the details mentioned above in regards to her presentation. The patient's downtime was estimated to be around 20 minutes. I was able to given a sedation holiday this morning and the patient woke up nicely and she was able to follow simple commands. This was very reassuring and encouraging. She was not ready for any further weaning and based on that I put her back on sedation with Diprivan. She is still on a mechanical ventilator. She still in the 100% FiO2 with a PEEP of 5 and a tidal volume of 450. The blood gases showed no much improvement in his oxygenation, yet based on the purchase request editor pulse oximeter analysis, was able to wean her down to 80% FiO2 and in the process of further bringing down FiO2 to maintain a saturation above 92%. Hemodynamically, she is off pressors completely. She is on Lasix drip at 5 mg an hour and she is producing adequate amount of urine output which seems to be improving. Her chest x-ray shows improvement in the volume status. There is development of bilateral pleural effusions. He was in a good location. Creatinine is up to 2.7. Rest of the electrodes are within normal limits with a mild hypernatremia of 146 On 12/05/2016, patient remains on mechanical ventilation, sedated, but according to the nurse who held sedation earlier, patient is arousable, follows simple instructions, hence that is reassuring that the patient did not at least sustained significant anoxic brain injury considering her prolonged cardiac arrest of more than 20 minutes. Patient is on mechanical ventilation, and her vent settings are tidal volume of 450 assist control rate of 24, PEEP of 5, FiO2 of 50%. Chest x-ray continues to show evidence of bilateral pleural effusions and congestive heart failure. Labs were reviewed hemoglobin is 7.3 WBC count is down to 9.7. ABG showed a pO2 of 97 pCO2 of 34 pH of 7.37. Renal profile seems to be worsening and I'm certain the patient must have developed acute tubular necrosis and acute kidney injury BUN is up to 56 creatinine is up to 3.50. Nephrology is addressing her acute renal failure. All her meds were reviewed, patient is now on insulin drip, his also on bronchodilators and IV steroids for her history of severe underlying COPD. On 12/06/2016, patient remains on mechanical ventilation, sedated, noted to become very asynchronous with the ventilator as soon as sedation was placed on hold for 10 minutes. Did not get a chance to address her mental status today, but as of yesterday patient was following simple instructions. I'm still concerned about the possibility of anoxic brain injury. Patient's ventilator settings are about the same have not changed much from above. ABG showed a pO2 of 94 pCO2 of 32 pH of 7.40. Hemoglobin is 6.7, still awaiting for blood to come from [place] for transfusion. Her blood loss is from chronic vaginal bleeding. Hemodynamically, the patient is stabilizing, not requiring any pressors at this point, her urine output seems to be good however her BUN is 67 creatinine of 3.49 apparently the patient developed acute kidney injury from her cardiac arrest and hypotension initially. Chest x-ray showed small right and moderate left pleural effusion atelectasis at the bases, lies in tubes were noted to be in proper position. Ultrasound of the chest showed small left pleural effusion, may or may not require thoracentesis, however at this point I will draw another weight and continue to monitor. No plans for thoracentesis at this point since the effusion is not large enough and will not make a significant improvement even if drain. Objective - Vital Signs Vital signs: Vital Signs Temp 98.3 F 12/06/16 10:53 Pulse 61 12/06/16 10:53 Resp 21 12/06/16 10:53 BP 175/51 12/06/16 10:53 Pulse Ox 97 12/06/16 10:53 Intake & Output 12/05/16 12/06/16 12/06/16 18:59 06:59 18:59 Intake Total 2754.776 3319.504 615.076 Output Total 570 995 290 Balance 745.949 788.504 325.076 Weight 109.1 kg 109 kg Intake: IV 900 1000.0 350 0.9 NS 900 850 300 Piperacillin-Tazobactam 3 50.0 .375 gm In Dextrose/Water 1 50ml.bag @ 12.5 mls/hr IVPB Q12H [facility] Rx#: [id number] metroNIDAZOLE-NS PMX 500 100 50 mg In Saline 1 100ml.bag @ 100 mls/hr IVPB Q8HR [facility] Rx#:[id number] Intake, IV Titration 389.949 303.504 131.076 Amount Insulin Regular 100 unit 53.07 81.076 In Sodium Chloride 0.9% 100 ml @ Per Protocol IV .Q0M [facility] Rx#:[id number] Propofol 500 mg In Empty 336.879 303.504 50 Bag 1 bag @ Titrate IV . Q0M [facility] Rx#:[id number] Tube Feeding 26 390 104 Blood Product 0 Rc As-1 Unit 0 [id number] Other 90 30 Output: Urine 570 995 290 Other: Voiding Method Indwelling Catheter Indwelling Catheter # Bowel Movements 0 ABP, PAP, CO, CI - Last Documented Arterial Blood Pressure 163/48 - Exam Physical Exam: Revealed a 66-year-old female, obese, on mechanical ventilation, endotracheal tube is intact.orogastric tube is intact. HEENT:[Neck is supple.] [No neck masses.] [No thyromegaly.] [No JVD.]short obese neck is noted. Chest: [crackles at the bases bilaterally, some rhonchi were also noted. No wheezing.] Cardiac Exam: [Normal S1 and S2, no S3 gallop, no murmur.] Abdomen: [obese,Soft, nontender, no megaly, no rebound, no guarding, normal bowel sounds.] Extremities: [No clubbing, 1+ bipedal edema, no cyanosis.] Neurological Exam: cannot be assessed, patient is on propofol drip. - Labs CBC & Chem 7: 12/06/16 04:30 12/06/16 04:30 Labs: Abnormal Lab Results - Last 24 Hours (Table) 12/05/16 12/05/16 12/05/16 Range/Units 12:00 14:16 15:51 RBC (3.80-5.40) m/uL Hgb (11.4-16.0) gm/dL Hct (34.0-46.0) % MCHC (31.0-37.0) g/dL RDW (11.5-15.5) % Plt Count (150-450) k/uL Lymphocytes # (1.0-4.8) k/uL ABG pCO2 (35-45) mmHg ABG HCO3 (21-25) mmol/L ABG O2 Saturation (94-97) % Chloride (98-107) mmol/L Carbon Dioxide (22-30) mmol/L BUN (7-17) mg/dL Creatinine (0.52-1.04) mg/dL Glucose (74-99) mg/dL POC Glucose (mg/dL) 139 H 146 H 134 H (75-99) mg/dL Calcium (8.4-10.2) mg/dL Phosphorus (2.5-4.5) mg/dL Magnesium (1.6-2.3) mg/dL AST (14-36) U/L Total Protein (6.3-8.2) g/dL Albumin (3.5-5.0) g/dL Crossmatch 12/05/16 12/05/16 12/05/16 Range/Units 17:35 18:00 18:31 RBC 2.59 L (3.80-5.40) m/uL Hgb 6.7 L* (11.4-16.0) gm/dL Hct 21.7 L (34.0-46.0) % MCHC 30.7 L (31.0-37.0) g/dL RDW 18.0 H (11.5-15.5) % Plt Count 129 L (150-450) k/uL Lymphocytes # (1.0-4.8) k/uL ABG pCO2 (35-45) mmHg ABG HCO3 (21-25) mmol/L ABG O2 Saturation (94-97) % Chloride (98-107) mmol/L Carbon Dioxide (22-30) mmol/L BUN (7-17) mg/dL Creatinine (0.52-1.04) mg/dL Glucose (74-99) mg/dL POC Glucose (mg/dL) 146 H (75-99) mg/dL Calcium (8.4-10.2) mg/dL Phosphorus (2.5-4.5) mg/dL Magnesium (1.6-2.3) mg/dL AST (14-36) U/L Total Protein (6.3-8.2) g/dL Albumin (3.5-5.0) g/dL Crossmatch See Detail 12/05/16 12/05/16 12/05/16 Range/Units 20:26 22:11 23:10 RBC (3.80-5.40) m/uL Hgb (11.4-16.0) gm/dL Hct (34.0-46.0) % MCHC (31.0-37.0) g/dL RDW (11.5-15.5) % Plt Count (150-450) k/uL Lymphocytes # (1.0-4.8) k/uL ABG pCO2 (35-45) mmHg ABG HCO3 (21-25) mmol/L ABG O2 Saturation (94-97) % Chloride (98-107) mmol/L Carbon Dioxide (22-30) mmol/L BUN (7-17) mg/dL Creatinine (0.52-1.04) mg/dL Glucose (74-99) mg/dL POC Glucose (mg/dL) 148 H 155 H 156 H (75-99) mg/dL Calcium (8.4-10.2) mg/dL Phosphorus (2.5-4.5) mg/dL Magnesium (1.6-2.3) mg/dL AST (14-36) U/L Total Protein (6.3-8.2) g/dL Albumin (3.5-5.0) g/dL Crossmatch 12/06/16 12/06/16 12/06/16 Range/Units 00:20 02:05 04:21 RBC (3.80-5.40) m/uL Hgb (11.4-16.0) gm/dL Hct (34.0-46.0) % MCHC (31.0-37.0) g/dL RDW (11.5-15.5) % Plt Count (150-450) k/uL Lymphocytes # (1.0-4.8) k/uL ABG pCO2 (35-45) mmHg ABG HCO3 (21-25) mmol/L ABG O2 Saturation (94-97) % Chloride (98-107) mmol/L Carbon Dioxide (22-30) mmol/L BUN (7-17) mg/dL Creatinine (0.52-1.04) mg/dL Glucose (74-99) mg/dL POC Glucose (mg/dL) 151 H 143 H 153 H (75-99) mg/dL Calcium (8.4-10.2) mg/dL Phosphorus (2.5-4.5) mg/dL Magnesium (1.6-2.3) mg/dL AST (14-36) U/L Total Protein (6.3-8.2) g/dL Albumin (3.5-5.0) g/dL Crossmatch 12/06/16 12/06/16 12/06/16 Range/Units 04:30 04:30 04:30 RBC 2.53 L (3.80-5.40) m/uL Hgb 6.7 L* (11.4-16.0) gm/dL Hct 21.9 L (34.0-46.0) % MCHC 30.7 L (31.0-37.0) g/dL RDW 17.9 H (11.5-15.5) % Plt Count 146 L (150-450) k/uL Lymphocytes # 0.3 L (1.0-4.8) k/uL ABG pCO2 (35-45) mmHg ABG HCO3 (21-25) mmol/L ABG O2 Saturation (94-97) % Chloride 113 H (98-107) mmol/L Carbon Dioxide 18 L (22-30) mmol/L BUN 67 H (7-17) mg/dL Creatinine 3.49 H (0.52-1.04) mg/dL Glucose 142 H (74-99) mg/dL POC Glucose (mg/dL) (75-99) mg/dL Calcium 7.6 L (8.4-10.2) mg/dL Phosphorus 8.6 H* (2.5-4.5) mg/dL Magnesium 2.5 H (1.6-2.3) mg/dL AST 5 L (14-36) U/L Total Protein 5.1 L (6.3-8.2) g/dL Albumin 2.6 L (3.5-5.0) g/dL Crossmatch 12/06/16 12/06/16 12/06/16 Range/Units 06:11 07:25 08:20 RBC (3.80-5.40) m/uL Hgb (11.4-16.0) gm/dL Hct (34.0-46.0) % MCHC (31.0-37.0) g/dL RDW (11.5-15.5) % Plt Count (150-450) k/uL Lymphocytes # (1.0-4.8) k/uL ABG pCO2 32 L (35-45) mmHg ABG HCO3 19 L (21-25) mmol/L ABG O2 Saturation 97.4 H (94-97) % Chloride (98-107) mmol/L Carbon Dioxide (22-30) mmol/L BUN (7-17) mg/dL Creatinine (0.52-1.04) mg/dL Glucose (74-99) mg/dL POC Glucose (mg/dL) 151 H 170 H (75-99) mg/dL Calcium (8.4-10.2) mg/dL Phosphorus (2.5-4.5) mg/dL Magnesium (1.6-2.3) mg/dL AST (14-36) U/L Total Protein (6.3-8.2) g/dL Albumin (3.5-5.0) g/dL Crossmatch 12/06/16 Range/Units 10:01 RBC (3.80-5.40) m/uL Hgb (11.4-16.0) gm/dL Hct (34.0-46.0) % MCHC (31.0-37.0) g/dL RDW (11.5-15.5) % Plt Count (150-450) k/uL Lymphocytes # (1.0-4.8) k/uL ABG pCO2 (35-45) mmHg ABG HCO3 (21-25) mmol/L ABG O2 Saturation (94-97) % Chloride (98-107) mmol/L Carbon Dioxide (22-30) mmol/L BUN (7-17) mg/dL Creatinine (0.52-1.04) mg/dL Glucose (74-99) mg/dL POC Glucose (mg/dL) 180 H (75-99) mg/dL Calcium (8.4-10.2) mg/dL Phosphorus (2.5-4.5) mg/dL Magnesium (1.6-2.3) mg/dL AST (14-36) U/L Total Protein (6.3-8.2) g/dL Albumin (3.5-5.0) g/dL Crossmatch Microbiology - Last 24 Hours (Table) 12/04/16 16:10 Gram Stain - Final Sputum Sputum Culture - Final 12/03/16 07:30 Blood Culture - Preliminary Blood No Growth after 72 hours 12/03/16 08:51 Urine Culture - Final Urine,Catheterized Klebsiella pneumoniae Assessment and Plan Plan: 1 acute cardio pulmonary arrest. Exact cause is not clear. It's possible that the patient had a combination of COPD and CHF exacerbation as the patient was found to be in acute pulmonary edema at a time of arrival. The patient was down for a total of 20 minutes during which she was given epinephrine and bicarb drip. The patient was in asystole./PEA 2 acute respiratory failure secondary to above, currently intubated on mechanical ventilator 3 acute decompensated heart failure and pulmonary edema 4 acute COPD exacerbation with increased bronchospasm wheezing and elevated airway pressures 5 acute shock. Rule out cardiogenic shock post cardiac arrest , improved on no pressors upon presentation. 6 chronic renal failure, rule out a component of acute kidney injury on top of chronic renal failure, urine output is improving and the creatinine is on the rise 7 CVA, history of with some residual right-sided weakness 8 possible hypoxic/anoxic encephalopathy post cardiac arrest, and this is less likely clinically the patient was given a sedation holiday and she woke up nicely and she was following commands 9 units icterus cancer history of 10 CHF with diastolic dysfunction with a preserved LV function of 55% and secondary pulmonary hypertension 11 coronary artery disease with a recent cardiac catheterization showing patent stents to RCA and left main 12 diabetes mellitus type 2 13 hyperlipidemia 14 obesity BMI of 42 15 fibromyalgia 16 hyperlipidemia 17 hypothyroidism 8 suspected urinary tract infection 19 depression 20 small bilateral pleural effusions, we'll continue to monitor, no need for thoracentesis at this point. Recommendation: Continue present treatment plan including supportive care measures, antibiotics, steroids, bronchodilators, close monitoring of the renal status and renal profile, no plans to do thoracentesis at this point, discussed her condition with her at bedside. Patient remains critically ill, and even when the sedation was placed on hold for 10 minutes, patient was getting extremely agitated, and became a synchronous with mechanical ventilation. Hence decided to keep her back on mechanical ventilation, no plans to wean today. We'll continue to follow closely. Critical care time is 35 minutes. Time with Patient: Greater than 30
--- NOTE | 2016-12-06 11:45 | US ---
EXAMINATION TYPE: US chest DATE OF EXAM: 12/06/2016 COMPARISON: NONE CLINICAL HISTORY: pleural effusions. EXAM MEASUREMENTS: Right Pleural Effusion fluid pocket: 1.7 cm Right skin to fluid thickness: 5.1 cm Left Pleural Effusion fluid pocket: 6.9 x 5.1 x 3.6 cm, from skin = 7.5 cm Left skin to fluid thickness: 4.8 cm Note: Left side marked for possible thoracentesis outside the dept. Note: Pulmonologists are able to review the images in the patient?s EMR. Limitation: Suboptimal exam on morbidly obese patient on a ventilator. Unable to move or hold positio n. IMPRESSIONS: BILATERAL PLEURAL EFFUSIONS ABOVE.
[2016-12-06 12:00] LABS: Glucose,Whole Blood 174 mg/dL (75-99)
[2016-12-06 14:31] LABS: Glucose,Whole Blood 160 mg/dL (75-99)
[2016-12-06] MEDS: INSULIN REGULAR 100 UNIT in SODIUM CHLORIDE 0.9% 100 ML IV SCH (15:52)
[2016-12-06 16:13] LABS: Glucose,Whole Blood 165 mg/dL (75-99)
[2016-12-06] MEDS ORDERED: amLODIPine 5 MG TAB PO SCH (17:45)
--- NOTE | 2016-12-06 18:12 | P.PN ---
Progress Note - Text DATE OF SERVICE: 12/06/2016 PRESENTING COMPLAINT: Shortness of breath, cardiac arrest INTERVAL HISTORY: This patient presented after developing an acute exacerbation of CHF and subsequent cardiac arrest. Hemoglobin 6.7, 1 unit of packed red cells given Today remains intubated, comfortable on vent. Neurologic status exam patient unable to tolerate after 10 minutes, overbreathing the vent. Ventilator settings: Assist control/volume control, rate 24, FiO2 50%, PEEP 5,. MEDICATIONS: Propofol, insulin drip, Protonix, tube feeding at 24 ml/hr. Heart rhythm: sinus bradycardia rate 40's-50's REVIEW OF SYSTEMS: Patient intubated. CURRENT MEDICATIONS As detailed above PHYSICAL EXAM: VITAL SIGNS: Temperature 98.0, pulse 42, respiratory rate 24, blood pressure 158 /44, oxygen saturation 97% on mechanical ventilation FiO2 50%. GENERAL APPEARANCE:Lying in bed, breathing comfortably on the vent. EYES: Pupils equal. Conjunctiva normal. NECK: JVD unable to assess. Mass not palpable. RESPIRATORY: Respiratory effort increased, on mechanical ventilation Lungs rhonchi and wheezing noted , CARDIOVASCULAR: First and second sounds noted. Moderate edema. ABDOMEN: Soft. Distended, Liver and spleen not palpable. No tenderness. No mass palpable. PSYCHIATRY: Unable to assess NEUROLOGICAL: Pupils sluggish secondary to sedation, withdraws to noxious stimuli. INVESTIGATIONS: Hemoglobin 6.7, platelet count 146, sodium 143, potassium 4.4, BUN 67, creatinine 3.90, Accu-Cheks noted. Chest ultrasound: Bilateral pleural effusions. ASSESSMENT: 1. Acute on chronic congestive heart failure exacerbation from diastolic dysfunction, secondary to coronary artery disease, ejection fraction 55% with a recent cardiac catheterization, slow to respond. 2. Cardiac arrest in a patient with underlying coronary artery disease. 3. Chronic obstructive pulmonary disease and an ex-smoker. 4. Chronic kidney disease stage III from diabetic nephropathy and hypertensive nephrosclerosis. 5. Chronic menorrhagia pending outpatient surgery. 6. Chronic diverticulosis. 7. 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 8. Essential hypertension. 9. Right arm weakness from old stroke. 10. Diabetes mellitus type 2 chronically on insulin. 11. Obesity, body mass index greater than 40, morbid type. 12. Coronary artery disease with stent to the left anterior descending artery and right coronary artery. 13. Hyperlipidemia. 14. Fibromyalgia. 15. Primary osteoarthritis of multiple joints bilateral 16. Urinary stress incontinence 17. Depression not otherwise specified 18. Acute hypoxic respiratory failure secondary to acute pulmonary edema from underlying coronary artery disease and congestive heart failure, on ventilator support, improving. 19. Recurrent chronic blood loss anemia secondary to menorrhagia. 20. Acute cardiogenic shock from underlying coronary artery disease, improving. 21. Urinary tract infection, secondary to outflow obstruction, organism Klebsiella pneumoniae, present on admission. 22. Acute blood loss anemia, hemoglobin 6.7, secondary to chronic menorrhagia 1 unit packed red cells given. 23. Acute renal failure likely secondary to ATN/prerenal, sepsis and shock, slow to respond. PLAN: Continue on current drips, Zosyn and metronidazole started for UTI, infectious disease following, Plan of care discussed at the bedside with and sister. Prognosis guarded. Patient and sister understand. HEARING THERAPY DIRECTOR statement: Patient was seen and examined by nurse practitioner Connie Livingston and all elements of the case discussed with attending is Dr. Aguila
--- NOTE | 2016-12-06 18:14 | CONS ---
DATE OF CONSULTATION: REASON FOR CONSULTATION: Renal failure. The patient is a 66 -year-old female with history of chronic kidney disease secondary to renovascular disease with atrophic right kidney. Baseline creatinine about 1 to 1.8 mg per DL for the last two years. The patient was recently discharged from the hospital after cardiac catheterization which was done on 11/29/2016. Serum creatinine had gone down to 1.5 mg/dL prior to her catheterization as she was admitted to the hospital for non-ST elevated TN. Her cath showed patent stents and medical therapy was advised. The patient was discharged and she came back to the hospital two days later with shortness of breath and eventually had cardiac arrest. The patient is currently on the vent. She was hypotensive initially and is currently off Levophed. She also had evidence of fluid overload on her chest x-ray with pleural effusion and was initially maintained on Lasix drip. The patient's serum creatinine went up to 3.5 mg/dL. The Lasix drip was discontinued yesterday. The patient continues to have good urine output at about 50 to 75 mL per hour. She is off Levophed. She remains on the vent currently and creatinine today is down to 3.49 mg/dL. Hemoglobin was down to 6.7 grams per dL. The patient has underlying uterine cancer for which she needs to have hysterectomy done and has been having bleeding on and off. Her urine culture grew Klebsiella pneumonia and the patient is maintained on antibiotics in the form of Zosyn. PAST MEDICAL HISTORY: Significant for chronic kidney disease NKF stage III, baseline creatinine about 1.5 mg/dL, coronary artery disease, recent cardiac catheterization on 11/29/2016, previous history of CVA with residual right sided weakness, Type 2 diabetes mellitus, obesity, hyperlipidemia, osteoarthritis, diastolic heart failure, uterine cancer treated with radiation therapy, needs hysterectomy, history of right femoral pseudoaneurysm, severe pulmonary hypertension, cataracts, irritable bowel syndrome, glaucoma, migraines. PAST SURGICAL HISTORY: Cholecystectomy, cardiac catheterization recently with no stent placement, previous catheterization and coronary stent placements in 2014. Colonoscopy. SOCIAL HISTORY: The patient is an ex-smoker. No history of drug abuse or alcohol abuse. REVIEW OF SYSTEMS: Currently the patient is on the vent. She has no fever. She has been treated for urinary tract infection. She has an indwelling Crenshaw catheter. She has had some uterine bleeding on and off. The patient is off the Levophed. On examination, the patient is on a vent. Blood pressure is 175/48. Heart rate 55 per minute. She is afebrile. Examination of the heart, S1, S2. Examination of the lungs, bilateral breath sounds are heard. Abdomen is soft, nontender. Examination of the lower extremities shows no significant edema. Central nervous system exam cannot be performed. Labs show sodium 143, potassium 4.4, chloride 130. BUN 67, serum creatinine 3.49. Phosphorus was 8.6. Hemoglobin 6.7 gm/dL. ASSESSMENT: 1. Acute kidney injury, acute tubular necrosis, secondary to hypoperfusion from cardiac arrest currently stable with good urine output, perhaps some recovery of kidney function. 2. chronic kidney disease with baseline creatinine about 1.5 mg/dL secondary to renovascular disease with atrophic right kidney Stage 3B. 3. Hyperphosphatemia associated with renal failure maintained on PhosLo. 4. Status post cardiac arrest. 5. Urinary tract infection with Klebsiella maintained on Zosyn. 6. Anemia with uterine bleeding being transfused packed RBCs. 7. Hypertension. We will start the patient on calcium channel jesus. I will also maintain her on oral Lasix. Continue off Lasix drip for now. PLAN: Add Norvasc, maintain the patient on Lasix down feeding tube, continue with PhosLo as long as she is maintained on tube feedings. Repeat labs in the a.m. and continue to avoid nephrotoxic agents. Thank you for this consultation, we will continue to follow the patient with you during her hospitalization.
[2016-12-06 18:24] LABS: Glucose,Whole Blood 135 mg/dL (75-99)
[2016-12-06 19:32] LABS: Glucose,Whole Blood 156 mg/dL (75-99)
[2016-12-06 20:14] LABS: Glucose,Whole Blood 166 mg/dL (75-99)
[2016-12-06 20:30] LABS: Anisocytosis Slight; Basophils % (A) 0 %; CH 27.9; CHCM 32.3; Eosinophils % (A) 0 %; HCT 30.1 % (34.0-46.0); HDW 4.71; Hypochromasia Marked; Luc # (Auto) 0.04; Luc % (Auto) 1; Lymphocytes # (A) 0.3 k/uL (1.0-4.8); Lymphocytes % (A) 5 %; MCH 27.7 pg (25.0-35.0); MCV 86.6 fL (80.0-100.0); Mean Platelet Volume 8.1; Monocytes # (A) 0.2 k/uL (0-1.0); Monocytes % (A) 4 %; Neutrophils # (A) 5.3 k/uL (1.3-7.7); Neutrophils % (A) 90 %; Poikilocytosis Marked; RBC 3.47 m/uL (3.80-5.40); WBC 5.9 k/uL (3.8-10.6); WBC (Perox) 6.48
[2016-12-06 20:31] LABS: HGB 9.6 gm/dL (11.4-16.0)
[2016-12-06 22:43] LABS: Glucose,Whole Blood 156 mg/dL (75-99)
[2016-12-06] MEDS ORDERED: amLODIPine 5 MG TAB PO STA (23:21)
--- NOTE | 2016-12-06 23:48 | P.CON ---
Consult Note - . Consult date: 12/06/16 Assessment/Plan:: This is a 66-year-old female who was recently hospitalized November 23 through November 25 at which time she was treated for mildly elevated troponins. Stress test was negative. Echocardiogram revealed EF of 55-60%. She was also treated for acute blood loss anemia with 1 unit of packed RBCs due to her underlying uterine cancer for which she is supposed to have an hysterectomy. Patient was readmitted November 26 through December 01 which time she was treated for acute exacerbation of COPD and acute diastolic heart failure as well as acute non-ST elevated myocardial infarction and underwent a heart catheterization with Dr. Dacosta finding a patent stent in the proximal and mid right coronary artery, patent stent in the main coronary artery, mild disease in the left circumflex, intermediate disease in the proximal LAD with recommendations to maximize medical treatment. According to the records, patient developed shortness of breath with a low pulse ox and her called EMS. Once patient was picked up by EMS she went into cardiopulmonary arrest and CPR was started. Patient was intubated in the emergency center and subsequently admitted to the intensive care unit. Patient did receive IV fluids and levo fed which has been off for 24 hours. Patient was initially on IV push Lasix 1 and then Lasix drip which is also been discontinued. Heparin drip was initially started and that has been discontinued. Her temperature max is been 100.3. White count 23.6 and currently at 6.1. Patient has had a drop in her hemoglobin from 9.3-6.7 and she does continue to have mild vaginal bleeding. Platelet count initially 295 is now 146. Kidney function has worsened with acute kidney injury and acute tubular necrosis with underlying chronic kidney disease stage III for which nephrology has been consulted. Urinalysis was turbulent with blood large, leukoesterase large, nitrate negative, RBCs 56 and WBC greater than 182 with bacteria many. Urine cultures returned back positive for Klebsiella pneumoniae greater than 100,000 colonies. Patient was started on tube feedings yesterday and did start stooling this morning. Her urine output has been running 50-100 mL per hour regarding IV antibiotics, patient has been on Zosyn and Flagyl was added last evening. She does remain intubated and on mechanical ventilation and appears to be comfortable. please see the consult note DICTATED BYAS DICTATED BY NURSE PRACTITIONER Mrs. Susi Hodges. Patient remains critically ill on the ventilator. But has had some improvement. antibiotic therapy at this will treat the urinary tract infection with klebsiella pneumoniae as well as concerns 2 pneumonia.Flagyl added because of gastrointestinal and should be tapered quicklly. Cultures will further help direct her antibiotic therapy.I agree with the evaluation assessment and plan as dictated by DYE COLORIST FORMULATOR Mrs Susi Hodges.
[2016-12-07 00:06] LABS: Glucose,Whole Blood 156 mg/dL (75-99)
[2016-12-07] MEDS ORDERED: LORazepam 2 MG/ML SYRINGE IV PRN (00:57)
[2016-12-07] MEDS: PROPOFOL 500 MG in EMPTY BAG 1 BAG IV SCH ×14 (01:09→18:57)
[2016-12-07] MEDS: CARVEDILOL 6.25 MG TAB PO SCH ×3 (01:09→19:13)
[2016-12-07] MEDS: fentaNYL (PF) 50 MCG/ML 2 ML AMP IV PRN ×4 (01:11→15:40)
[2016-12-07] MEDS: LORazepam 2 MG/ML SYRINGE IV PRN ×3 (02:04→17:06)
[2016-12-07 02:05] LABS: Glucose,Whole Blood 147 mg/dL (75-99)
[2016-12-07] MEDS: PIPERACILLIN-TAZOBACTAM 3.375 GM in DEXTROSE/WATER 1 50ML.BAG IVPB SCH ×2 (02:57→16:13)
[2016-12-07 04:03] LABS: Glucose,Whole Blood 139 mg/dL (75-99)
[2016-12-07 04:11] LABS: Anisocytosis Slight; Basophils % (A) 0 %; CH 27.6; Eosinophils % (A) 0 %; HCT 30.3 % (34.0-46.0); HDW 4.56; HGB 9.6 gm/dL (11.4-16.0); Hypochromasia Marked; Luc # (Auto) 0.06; Luc % (Auto) 1; Lymphocytes # (A) 0.3 k/uL (1.0-4.8); Lymphocytes % (A) 6 %; MCH 28.1 pg (25.0-35.0); MCHC 31.6 g/dL (31.0-37.0); MCV 89.1 fL (80.0-100.0); Mean Platelet Volume 8.2; Monocytes # (A) 0.3 k/uL (0-1.0); Monocytes % (A) 4 %; Neutrophils # (A) 5.2 k/uL (1.3-7.7); Neutrophils % (A) 89 %; Poikilocytosis Moderate; RBC 3.41 m/uL (3.80-5.40); RDW 16.9 % (11.5-15.5); WBC 5.8 k/uL (3.8-10.6); WBC (Perox) 6.12
[2016-12-07 04:17] LABS: INR 1.1 (<1.1); Prothrombin Time 11.3 sec (9.0-12.0)
[2016-12-07 04:23] LABS: Calcium 7.6 mg/dL (8.4-10.2); Magnesium 2.6 mg/dL (1.6-2.3); Potassium 4.4 mmol/L (3.5-5.1); Total Bilirubin 0.2 mg/dL (0.2-1.3); Total Protein 4.9 g/dL (6.3-8.2)
[2016-12-07 04:42] LABS: Phosphorous 9.4 mg/dL (2.5-4.5)
[2016-12-07 05:08] LABS: Glucose,Whole Blood 118 mg/dL (75-99)
[2016-12-07] MEDS: methylPREDNISolone SOD SUCCI 125 MG/2 ML VIAL IV SCH ×3 (06:04→19:18)
[2016-12-07 06:08] LABS: Glucose,Whole Blood 170 mg/dL (75-99)
[2016-12-07] MEDS: INSULIN REGULAR 100 UNIT in SODIUM CHLORIDE 0.9% 100 ML IV SCH (06:49)
--- NOTE | 2016-12-07 06:52 | XR ---
EXAMINATION TYPE: XR chest 1V portable DATE OF EXAM: 12/07/2016 CLINICAL HISTORY: Difficulty breathing progress study. TECHNIQUE: Single AP portable semiupright view of the chest is obtained. COMPARISON: Chest x-ray from one day earlier FINDINGS: An endotracheal and orogastric tube are stable in appearance. There are persistent small t o moderate-sized bilateral pleural effusions. There is associated bibasilar atelectasis and/or infilt rates. There is persistent cardiomegaly with atherosclerotic thoracic aorta. Upper lungs are clear wi thout pneumothorax. Osseous structures are intact. IMPRESSION: Overall stable findings, cardiomegaly with small to moderate size bilateral pleural eff usions and associated bibasilar atelectasis and/or infiltrate all redemonstrated.
[2016-12-07 06:56] LABS: Glucose,Whole Blood 166 mg/dL (75-99)
--- NOTE | 2016-12-07 07:46 | PN ---
DATE OF SERVICE: 12/06/2016 Attending note: This patient was seen and examined by me earlier today. I reviewed the note of my nurse practitioner, Ms. Livingston. Discussed and reviewed. Additional findings below. This is a patient admitted into the ICU, intubated. Has been off Lasix drip. In fact given some IV fluids today because of acute renal failure, also did receive blood. Remains on the ventilator. Getting tube feedings also. On exam, lungs decreased breath sounds. Some wheezing. ABDOMEN: Soft, nontender. INVESTIGATIONS: BUN 69, creatinine 3.9. ASSESSMENT: 1. Acute on chronic congestive heart failure exacerbation from underlying coronary artery disease. 2. Acute blood loss anemia, multifactorial. 3. Acute respiratory failure on ventilator support. PLAN: Continue current medication and treatment plan. Prognosis remains guarded. Care was discussed with the at the bedside.
[2016-12-07] MEDS: IPRATROPIUM-ALBUTEROL 3 ML NEB INHALATION SCH ×4 (07:56→20:03)
[2016-12-07 08:14] LABS: Glucose,Whole Blood 161 mg/dL (75-99)
[2016-12-07 08:52] LABS: ABG Base Excess -6.3 mmol/L; ABG HCO3 19 mmol/L (21-25); ABG PCO2 38 mmHg (35-45); ABG PH 7.31 (7.35-7.45); ABG PO2 90 mmHg (83-108); ABG TCO2 20 mmol/L (19-24)
[2016-12-07 08:53] LABS: ABG Oxygen Saturation 96.2 % (94-97)
[2016-12-07] MEDS: CALCIUM ACETATE 667 MG CAP PO SCH ×3 (09:02→17:16)
[2016-12-07] MEDS: PANTOPRAZOLE 40 MG/10 ML VIAL IV SCH (09:03)
[2016-12-07] MEDS: metroNIDAZOLE-NS PMX 500 MG in SALINE 1 100ML.BAG IVPB SCH ×2 (09:03→16:20)
[2016-12-07] MEDS: CHLORHEXIDINE GLUCONATE 15 ML CUP MUCOUS MEM SCH ×2 (09:03→22:10)
[2016-12-07] MEDS: amLODIPine 10 MG TAB PO SCH (09:03)
[2016-12-07] MEDS: FUROSEMIDE 40 MG TAB PO SCH ×2 (09:03→16:19)
[2016-12-07 10:07] LABS: Glucose,Whole Blood 162 mg/dL (75-99)
--- NOTE | 2016-12-07 11:43 | P.PN ---
Subjective Principal diagnosis: Acute cardiopulmonary arrest and acute respiratory failure This is a 66-year-old female patient who got admitted to the ED this morning with cardiopulmonary arrest. The patient has multiple medical problems and comorbidities. The patient has advanced COPD and she is an ex-smoker. She also has coronary artery disease with previous coronary interventions and stenting and most recently the patient had a cardiac catheterization that was done on 11/24/2016 and based on the cath, the patient had a patent stent to left main and RCA and there was no significant occlusion or anatomic obstruction. The patient's most recent echocardiogram also from November 2016 showed a preserved LV function with an ejection fraction of 50-55%. She suffers from chronic renal failure. Her baseline crit is around 1.58. She is morbidly obese. She has also various other comorbidities including chronic hypoxic arrest 30 failure, chronic diverticulosis, chronic gastritis, hypertension, previous history of stroke with right-sided weakness, hyperlipidemia, fibromyalgia and osteoarthritis. Her performance and functional status is been essentially very poor. Based on the reported history, the patient woke up this morning with significant shortness of breath. Her pulse ox was found to by in the low 80s by the . Note that the patient has home O2. Once the patient got loaded on the stretcher, the patient was found to be cardiac pulmonary arrest. At that point CPR was initiated. The patient was also bag and non-intubated in the field. The patient was on for approximately 20 minutes. During this time the patient received 5 rounds of epinephrine, 2 rounds of bicarb and ultimately on 7:19 AM, the patient's cardiac rhythm went back to sinus. In the emergency department the patient was intubated and placed on a mechanical ventilator. The patient was given a total of 2 L of IV fluids and subsequently she was found to be in acute pulmonary edema. CAT scan of the brain was done and was negative. Chest x-ray showed breath and pulmonary infiltrates typical of an underlying pulmonary edema. Currently the patient is a triple-lumen catheter in the right femoral vein. The patient is been resuscitated with IV fluids and pressors and currently she is on norepinephrine infusion running at 25 mics. She is also sedated on propofol at 10 mics. She is on a mechanical ventilator on assist control mode at the rate of 14, tidal volume of 450, FiO2 of 100% and a PEEP of 5. The blood gases showed a pH of 7.14 with a pCO2 of 72 and pO2 of 93. Peak air pressure quite elevated in the low 40s with a lower static airway pressure. The patient's lactic acid level is at 7.8. She is oliguric/anuric with minimal amount of urine output collected post Crenshaw catheter insertion. Note that she was given a dose of Lasix 40 push and the emergency department without any much success in terms of urine output. Her blood sugars are poorly controlled. Most recent blood sugar is above 300 and she'll be also started an insulin drip. On 12/04/2016, I'm seeing this patient in follow-up following her cardiac pulmonary arrest. Please refer to the details mentioned above in regards to her presentation. The patient's downtime was estimated to be around 20 minutes. I was able to given a sedation holiday this morning and the patient woke up nicely and she was able to follow simple commands. This was very reassuring and encouraging. She was not ready for any further weaning and based on that I put her back on sedation with Diprivan. She is still on a mechanical ventilator. She still in the 100% FiO2 with a PEEP of 5 and a tidal volume of 450. The blood gases showed no much improvement in his oxygenation, yet based on the grass cutter pulse oximeter analysis, was able to wean her down to 80% FiO2 and in the process of further bringing down FiO2 to maintain a saturation above 92%. Hemodynamically, she is off pressors completely. She is on Lasix drip at 5 mg an hour and she is producing adequate amount of urine output which seems to be improving. Her chest x-ray shows improvement in the volume status. There is development of bilateral pleural effusions. He was in a good location. Creatinine is up to 2.7. Rest of the electrodes are within normal limits with a mild hypernatremia of 146 On 12/05/2016, patient remains on mechanical ventilation, sedated, but according to the nurse who held sedation earlier, patient is arousable, follows simple instructions, hence that is reassuring that the patient did not at least sustained significant anoxic brain injury considering her prolonged cardiac arrest of more than 20 minutes. Patient is on mechanical ventilation, and her vent settings are tidal volume of 450 assist control rate of 24, PEEP of 5, FiO2 of 50%. Chest x-ray continues to show evidence of bilateral pleural effusions and congestive heart failure. Labs were reviewed hemoglobin is 7.3 WBC count is down to 9.7. ABG showed a pO2 of 97 pCO2 of 34 pH of 7.37. Renal profile seems to be worsening and I'm certain the patient must have developed acute tubular necrosis and acute kidney injury BUN is up to 56 creatinine is up to 3.50. Nephrology is addressing her acute renal failure. All her meds were reviewed, patient is now on insulin drip, his also on bronchodilators and IV steroids for her history of severe underlying COPD. On 12/06/2016, patient remains on mechanical ventilation, sedated, noted to become very asynchronous with the ventilator as soon as sedation was placed on hold for 10 minutes. Did not get a chance to address her mental status today, but as of yesterday patient was following simple instructions. I'm still concerned about the possibility of anoxic brain injury. Patient's ventilator settings are about the same have not changed much from above. ABG showed a pO2 of 94 pCO2 of 32 pH of 7.40. Hemoglobin is 6.7, still awaiting for blood to come from [facility] for transfusion. Her blood loss is from chronic vaginal bleeding. Hemodynamically, the patient is stabilizing, not requiring any pressors at this point, her urine output seems to be good however her BUN is 67 creatinine of 3.49 apparently the patient developed acute kidney injury from her cardiac arrest and hypotension initially. Chest x-ray showed small right and moderate left pleural effusion atelectasis at the bases, lies in tubes were noted to be in proper position. Ultrasound of the chest showed small left pleural effusion, may or may not require thoracentesis, however at this point I will draw another weight and continue to monitor. No plans for thoracentesis at this point since the effusion is not large enough and will not make a significant improvement even if drain. On 12/07/2016, patient remains on mechanical ventilation, sedated, had lots of issues with hypertension overnight, patient is also bradycardic, patient was given Norvasc, did not improve discontinuation. Hence I recommended today adding Catapres 0.1 mg via nasogastric tube twice a day. Patient could not have her mental status assessed today, apparently was sedation is lower down patient gets extremely agitated. Ventilator settings remained the same, she still on 50% FiO2, pO2 is 90 pCO2 of 38 pH of 7.31. Renal profile remains poor but improving, creatinine is now 3.0 compared to 3.502 days ago. Clearly the patient developed some acute kidney injury from her cardiac arrest and developed acute tubular necrosis, we hope this will improve with time. Urine output is adequate She is making about 40-50 mL per hour. Patient did receive 2 units of packed RBCs yesterday, and her hemoglobin is 9.6 today. Patient is tolerating nutritional support while via nasogastric tube. Objective - Vital Signs Vital signs: Vital Signs Temp 98.2 F 12/07/16 08:00 Pulse 51 L 12/07/16 09:00 Resp 25 H 12/07/16 09:00 BP 158/47 12/07/16 09:00 Pulse Ox 96 12/07/16 09:00 Intake & Output 12/06/16 12/07/16 12/07/16 18:59 06:59 18:59 Intake Total 7946.583 5010.678 153.5 Output Total 740 725 60 Balance 250.992 3343.678 93.5 Weight 114.8 kg Intake: IV 950 907.5 77.5 0.9 NS 900 870 65 Piperacillin-Tazobactam 3 37.5 12.5 .375 gm In Dextrose/Water 1 50ml.bag @ 12.5 mls/hr IVPB Q12H [facility] Rx#: [id number] metroNIDAZOLE-NS PMX 500 50 mg In Saline 1 100ml.bag @ 100 mls/hr IVPB Q8HR [facility] Rx#:[id number] Intake, IV Titration 365.047 568.178 50 Amount Insulin Regular 100 unit 120.808 59.064 In Sodium Chloride 0.9% 100 ml @ Per Protocol IV .Q0M [facility] Rx#:[id number] Propofol 500 mg In Empty 244.239 509.114 50 Bag 1 bag @ Titrate IV . Q0M [facility] Rx#:[id number] Tube Feeding 260 390 26 Blood Product 0 Rc As-1 Unit 0 [id number] Rc As-1 Unit 0 [id number] Other 60 150 Output: Urine 740 725 60 Other: Voiding Method Indwelling Catheter Indwelling Catheter Indwelling Catheter # Bowel Movements 3 ABP, PAP, CO, CI - Last Documented Arterial Blood Pressure 163/38 - Exam Physical Exam: Revealed a 66-year-old female, obese, on mechanical ventilation, endotracheal tube is intact.orogastric tube is intact. HEENT:[Neck is supple.] [No neck masses.] [No thyromegaly.] [No JVD.]short obese neck is noted. Chest: [crackles at the bases bilaterally, some rhonchi were also noted. No wheezing.] Cardiac Exam: [Normal S1 and S2, no S3 gallop, no murmur.] Abdomen: [obese,Soft, nontender, no megaly, no rebound, no guarding, normal bowel sounds.] Extremities: [No clubbing, trace bipedal edema, no cyanosis.] Neurological Exam: cannot be assessed, patient is on propofol drip. - Labs CBC & Chem 7: 12/07/16 04:00 12/07/16 04:00 Labs: Abnormal Lab Results - Last 24 Hours (Table) 12/05/16 12/06/16 12/06/16 Range/Units 18:00 11:59 14:27 RBC (3.80-5.40) m/uL Hgb (11.4-16.0) gm/dL Hct (34.0-46.0) % RDW (11.5-15.5) % Plt Count (150-450) k/uL Lymphocytes # (1.0-4.8) k/uL ABG pH (7.35-7.45) ABG HCO3 (21-25) mmol/L Chloride (98-107) mmol/L Carbon Dioxide (22-30) mmol/L BUN (7-17) mg/dL Creatinine (0.52-1.04) mg/dL Glucose (74-99) mg/dL POC Glucose (mg/dL) 174 H 160 H (75-99) mg/dL Calcium (8.4-10.2) mg/dL Phosphorus (2.5-4.5) mg/dL Magnesium (1.6-2.3) mg/dL AST (14-36) U/L Total Protein (6.3-8.2) g/dL Albumin (3.5-5.0) g/dL Crossmatch See Detail 12/06/16 12/06/16 12/06/16 Range/Units 16:11 18:22 19:30 RBC (3.80-5.40) m/uL Hgb (11.4-16.0) gm/dL Hct (34.0-46.0) % RDW (11.5-15.5) % Plt Count (150-450) k/uL Lymphocytes # (1.0-4.8) k/uL ABG pH (7.35-7.45) ABG HCO3 (21-25) mmol/L Chloride (98-107) mmol/L Carbon Dioxide (22-30) mmol/L BUN (7-17) mg/dL Creatinine (0.52-1.04) mg/dL Glucose (74-99) mg/dL POC Glucose (mg/dL) 165 H 135 H 156 H (75-99) mg/dL Calcium (8.4-10.2) mg/dL Phosphorus (2.5-4.5) mg/dL Magnesium (1.6-2.3) mg/dL AST (14-36) U/L Total Protein (6.3-8.2) g/dL Albumin (3.5-5.0) g/dL Crossmatch 12/06/16 12/06/16 12/06/16 Range/Units 20:10 20:10 22:40 RBC 3.47 L (3.80-5.40) m/uL Hgb 9.6 L D (11.4-16.0) gm/dL Hct 30.1 L (34.0-46.0) % RDW 17.0 H (11.5-15.5) % Plt Count 130 L (150-450) k/uL Lymphocytes # 0.3 L (1.0-4.8) k/uL ABG pH (7.35-7.45) ABG HCO3 (21-25) mmol/L Chloride (98-107) mmol/L Carbon Dioxide (22-30) mmol/L BUN (7-17) mg/dL Creatinine (0.52-1.04) mg/dL Glucose (74-99) mg/dL POC Glucose (mg/dL) 166 H 156 H (75-99) mg/dL Calcium (8.4-10.2) mg/dL Phosphorus (2.5-4.5) mg/dL Magnesium (1.6-2.3) mg/dL AST (14-36) U/L Total Protein (6.3-8.2) g/dL Albumin (3.5-5.0) g/dL Crossmatch 12/07/16 12/07/16 12/07/16 Range/Units 00:03 02:04 04:00 RBC (3.80-5.40) m/uL Hgb (11.4-16.0) gm/dL Hct (34.0-46.0) % RDW (11.5-15.5) % Plt Count (150-450) k/uL Lymphocytes # (1.0-4.8) k/uL ABG pH (7.35-7.45) ABG HCO3 (21-25) mmol/L Chloride 114 H (98-107) mmol/L Carbon Dioxide 16 L (22-30) mmol/L BUN 77 H (7-17) mg/dL Creatinine 3.00 H (0.52-1.04) mg/dL Glucose 132 H (74-99) mg/dL POC Glucose (mg/dL) 156 H 147 H (75-99) mg/dL Calcium 7.6 L (8.4-10.2) mg/dL Phosphorus 9.4 H* (2.5-4.5) mg/dL Magnesium 2.6 H (1.6-2.3) mg/dL AST 7 L (14-36) U/L Total Protein 4.9 L (6.3-8.2) g/dL Albumin 2.6 L (3.5-5.0) g/dL Crossmatch 12/07/16 12/07/16 12/07/16 Range/Units 04:00 04:00 05:05 RBC 3.41 L (3.80-5.40) m/uL Hgb 9.6 L (11.4-16.0) gm/dL Hct 30.3 L (34.0-46.0) % RDW 16.9 H (11.5-15.5) % Plt Count 134 L (150-450) k/uL Lymphocytes # 0.3 L (1.0-4.8) k/uL ABG pH (7.35-7.45) ABG HCO3 (21-25) mmol/L Chloride (98-107) mmol/L Carbon Dioxide (22-30) mmol/L BUN (7-17) mg/dL Creatinine (0.52-1.04) mg/dL Glucose (74-99) mg/dL POC Glucose (mg/dL) 139 H 118 H (75-99) mg/dL Calcium (8.4-10.2) mg/dL Phosphorus (2.5-4.5) mg/dL Magnesium (1.6-2.3) mg/dL AST (14-36) U/L Total Protein (6.3-8.2) g/dL Albumin (3.5-5.0) g/dL Crossmatch 12/07/16 12/07/16 12/07/16 Range/Units 06:06 06:53 08:00 RBC (3.80-5.40) m/uL Hgb (11.4-16.0) gm/dL Hct (34.0-46.0) % RDW (11.5-15.5) % Plt Count (150-450) k/uL Lymphocytes # (1.0-4.8) k/uL ABG pH 7.31 L (7.35-7.45) ABG HCO3 19 L (21-25) mmol/L Chloride (98-107) mmol/L Carbon Dioxide (22-30) mmol/L BUN (7-17) mg/dL Creatinine (0.52-1.04) mg/dL Glucose (74-99) mg/dL POC Glucose (mg/dL) 170 H 166 H (75-99) mg/dL Calcium (8.4-10.2) mg/dL Phosphorus (2.5-4.5) mg/dL Magnesium (1.6-2.3) mg/dL AST (14-36) U/L Total Protein (6.3-8.2) g/dL Albumin (3.5-5.0) g/dL Crossmatch 12/07/16 12/07/16 Range/Units 08:13 10:05 RBC (3.80-5.40) m/uL Hgb (11.4-16.0) gm/dL Hct (34.0-46.0) % RDW (11.5-15.5) % Plt Count (150-450) k/uL Lymphocytes # (1.0-4.8) k/uL ABG pH (7.35-7.45) ABG HCO3 (21-25) mmol/L Chloride (98-107) mmol/L Carbon Dioxide (22-30) mmol/L BUN (7-17) mg/dL Creatinine (0.52-1.04) mg/dL Glucose (74-99) mg/dL POC Glucose (mg/dL) 161 H 162 H (75-99) mg/dL Calcium (8.4-10.2) mg/dL Phosphorus (2.5-4.5) mg/dL Magnesium (1.6-2.3) mg/dL AST (14-36) U/L Total Protein (6.3-8.2) g/dL Albumin (3.5-5.0) g/dL Crossmatch Microbiology - Last 24 Hours (Table) 12/03/16 07:30 Blood Culture - Preliminary Blood No Growth after 96 hours 12/04/16 16:10 Gram Stain - Final Sputum Sputum Culture - Final Assessment and Plan Plan: 1 acute cardio pulmonary arrest. Exact cause is not clear. It's possible that the patient had a combination of COPD and CHF exacerbation as the patient was found to be in acute pulmonary edema at a time of arrival. The patient was down for a total of 20 minutes during which she was given epinephrine and bicarb drip. The patient was in asystole./PEA 2 acute respiratory failure secondary to above, currently intubated on mechanical ventilator 3 acute decompensated heart failure and pulmonary edema, improving, but not resolved. 4 acute COPD exacerbation with increased bronchospasm wheezing and elevated airway pressures 5 acute shock. Rule out cardiogenic shock post cardiac arrest , improved on no pressors upon presentation. 6 chronic renal failure, rule out a component of acute kidney injury on top of chronic renal failure, urine output is improving and the creatinine is on the rise 7 CVA, history of with some residual right-sided weakness 8 possible hypoxic/anoxic encephalopathy post cardiac arrest, and this is less likely clinically the patient was given a sedation holiday and she woke up nicely and she was following commands 9 units icterus cancer history of 10 CHF with diastolic dysfunction with a preserved LV function of 55% and secondary pulmonary hypertension 11 coronary artery disease with a recent cardiac catheterization showing patent stents to RCA and left main 12 diabetes mellitus type 2 13 hyperlipidemia 14 obesity BMI of 42 15 fibromyalgia 16 hyperlipidemia 17 hypothyroidism 8 suspected urinary tract infection 19 depression 20 small bilateral pleural effusions, we'll continue to monitor, no need for thoracentesis at this point. Recommendation: Continue present treatment plan including supportive care measures, antibiotics, steroids, bronchodilators, close monitoring of the renal status and renal profile, no plans to do thoracentesis at this point, discussed her condition with her sister at bedside. Patient remains critically ill, and even when the sedation was placed on hold for 10 minutes, patient was getting extremely agitated, and became a synchronous with mechanical ventilation. Hence decided to keep her back on mechanical ventilation, no plans to wean today. We'll continue to follow closely. Critical care time is 32 minutes. Catapres was added for poorly controlled blood pressure. Time with Patient: Greater than 30
[2016-12-07] MEDS: INSULIN LISPRO (humaLOG) 300 UNIT/3 ML VIAL SQ SCH ×2 (12:22→18:58)
[2016-12-07] MEDS: cloNIDine HCL 0.1 MG TAB PO SCH ×2 (12:24→22:10)
[2016-12-07 12:38] LABS: Glucose,Whole Blood 152 mg/dL (75-99)
[2016-12-07 13:11] LABS: Hemoglobin A1C 6.5 % (4.2-6.1)
[2016-12-07] MEDS ORDERED: LIDOCAINE 2% INJ 20 MG/ML SQ ONE (13:59)
[2016-12-07] MEDS ORDERED: FUROSEMIDE 10 MG/ML 10 ML VIAL IV STA (14:00)
--- NOTE | 2016-12-07 14:23 | XR ---
EXAMINATION TYPE: XR chest 1V portable DATE OF EXAM: 12/07/2016 CLINICAL HISTORY: PICC line placement. TECHNIQUE: Single AP portable semiupright view of the chest is obtained. COMPARISON: Chest x-ray from earlier today FINDINGS: There is new left-sided PICC line with tip in SVC. An endotracheal and orogastric tube are stable in appearance. There are persistent small to moderate- sized bilateral pleural effusions redemonstrated. There is associated bibasilar atelectasis and/or in filtrates redemonstrated. There is persistent cardiomegaly with atherosclerotic thoracic aorta redemo nstrated. Upper lungs show no evidence of sizable pneumothorax. Osseous structures are intact. IMPRESSION: New left PICC line with tip in SVC. Other findings stable.
--- NOTE | 2016-12-07 17:01 | P.PN ---
Progress Note - Text DATE OF SERVICE: 12/07/2016 PRESENTING COMPLAINT: Shortness of breath, cardiac arrest INTERVAL HISTORY: This patient presented after developing an acute exacerbation of CHF and subsequent cardiac arrest. Episode of desaturation while on the vent oxygen saturation went into the 80s patient had to be bagged back up, FiO2 increased. Attempt made to give a sedation holiday which was unsuccessful, patient can overbreathing the vent and became very agitated. No plans to wean from the vent at this time. Ventilator settings: Assist control/volume control, rate 24, FiO2 90%, PEEP 5,. MEDICATIONS: Propofol, insulin drip, Protonix, tube feeding at 24 ml/hr. Heart rhythm: sinus bradycardia rate 40's-50's REVIEW OF SYSTEMS: Patient intubated. CURRENT MEDICATIONS As detailed above PHYSICAL EXAM: VITAL SIGNS: Temperature 98.0, heart rate 63, respirations 24, blood pressure 176/51, oxygen saturation 97% on 90% FiO2. GENERAL APPEARANCE:Lying in bed, breathing comfortably on the vent. EYES: Pupils equal. Conjunctiva normal. NECK: JVD unable to assess. Mass not palpable. RESPIRATORY: Respiratory effort increased, on mechanical ventilation Lungs increased breath sounds secretions noted , CARDIOVASCULAR: First and second sounds noted. Moderate edema. ABDOMEN: Soft. Distended, Liver and spleen not palpable. No tenderness. No mass palpable. PSYCHIATRY: Unable to assess NEUROLOGICAL: Pupils sluggish secondary to sedation, withdraws to noxious stimuli. INVESTIGATIONS: Hemoglobin 9.6, platelet count 134, BUN 77, creatinine 3.00, Accu-Cheks noted Chest x-ray reveals new PICC line in SVC, right basilar atelectasis and bilateral pleural effusions. ASSESSMENT: 1. Acute on chronic congestive heart failure exacerbation from diastolic dysfunction, secondary to coronary artery disease, ejection fraction 55% with a recent cardiac catheterization, slow to respond 2. Cardiac arrest in a patient with underlying coronary artery disease. 3. Chronic obstructive pulmonary disease and an ex-smoker. 4. Chronic kidney disease stage III from diabetic nephropathy and hypertensive nephrosclerosis. 5. Chronic menorrhagia pending outpatient surgery. 6. Chronic diverticulosis. 7. 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 8. Essential hypertension. 9. Right arm weakness from old stroke. 10. Diabetes mellitus type 2 chronically on insulin. 11. Obesity, body mass index greater than 40, morbid type. 12. Coronary artery disease with stent to the left anterior descending artery and right coronary artery. 13. Hyperlipidemia. 14. Fibromyalgia. 15. Primary osteoarthritis of multiple joints bilateral 16. Urinary stress incontinence 17. Depression not otherwise specified 18. Acute hypoxic respiratory failure secondary to acute pulmonary edema from underlying coronary artery disease and congestive heart failure, on ventilator support, worsening. 19. Recurrent chronic blood loss anemia secondary to menorrhagia. 20. Acute cardiogenic shock from underlying coronary artery disease, improving. 21. Urinary tract infection, secondary to outflow obstruction, organism Klebsiella pneumoniae, present on admission. 22. Acute blood loss anemia, hemoglobin 6.7, secondary to chronic menorrhagia 1 unit packed red cells given improving 23. Acute renal failure likely secondary to ATN/prerenal, sepsis and shock, slow to respond. PLAN: Continue on current drips, Zosyn and metronidazole started for UTI, infectious disease following, long-term care plans discussed at the bedside with and sister and daughter. Prognosis guarded. Patient , daughter, sister understand. DIRECTOR OF HEMOPHILIA statement: Patient was seen and examined by nurse practitioner Connie Livingston and all elements of the case discussed with attending is Dr. Aguila
[2016-12-07 19:06] LABS: Glucose,Whole Blood 244 mg/dL (75-99)
--- NOTE | 2016-12-07 20:09 | PN ---
DATE OF SERVICE: 12/07/2016 Attending Note: This patient was seen and examined me earlier today. I reviewed the note of my nurse practitioner, Ms. Livingston. Discussed additional findings as below. Patient pulmonary status changed. She dropped her saturation. FIO2 had to be increased back to about 80 to 90%. Patient still on the tube feeding, Insulin drip and propofol. On examination, LUNGS: Decreased breath sounds. Some secretions are present. ABDOMEN: Soft. Decreased responsiveness. ASSESSMENT: Worsening acute hypoxic respiratory failure per critical care, Dr. Caceres following the same. Antibiotics to continue. PLAN: I had a talk with the patient and daughter and overall grave prognosis was discussed. Advanced care planning: I did have a long talk with the patient and the daughter about patient's overall guarded prognosis and they do agree that if patient was to then go downhill that they will NOT RESUSCITATE the patient any further and she would not like to be chronically on the ventilator support. Total time spent today with advance care planning was about 20 to 25 minutes in addition to the progress note.
--- NOTE | 2016-12-07 21:15 | PN ---
Patient is seen for follow-up for acute kidney injury. She remains on the vent. Patient has had good urine output about 50 to 75 mL an hour. Her blood pressure was running high and she was started on Norvasc, which was increased to 10 mg daily. Coreg was added; however, this was discontinued secondary to heart rate staying in the 50s. Usually Coreg is not associated typically Coreg is not associated with bradycardia unlike Lopressor or atenolol. Patient was started on clonidine. Earlier this afternoon the patient developed significant shortness of breath and restlessness. Her FiO2 was increased to 80%. On examination, bilateral breath sounds are heard. Patient remains sedated on the vent. FiO2 is at 80%. Examination of lower extremities shows no significant edema. ABDOMEN: Soft, nontender. SYSTEMS DEVELOPMENT CONSULTANT exam cannot be performed. Labs show sodium 142, potassium 4.4, serum creatinine 3.0, BUN 77, hemoglobin 9.6 g/dL. ASSESSMENT: 1. Acute kidney injury, acute tubular necrosis, currently slightly improved. 2. Status post cardiac arrest. 3. Ventilator -dependent respiratory failure. 4. Volume overload. Patient had been on Lasix drip that was held and she continued to have good urine output off diuretics. I will give her a dose of IV Lasix and repeat a chest x-ray today. 5. Hypertension, slightly better controlled. Continue with calcium channel blockers. The Coreg was switched to clonidine this morning. 6. Severe hyperphosphatemia. Increase PhosLo to 2 tablets t.i.d. and change tube feeding to Nepro. PLAN: Change tube feedings to Nepro, administer Lasix IV piggyback 60 mg IV push x1. Continue to avoid nephrotoxic agents and repeat labs in a.m.
[2016-12-08] MEDS: methylPREDNISolone SOD SUCCI 125 MG/2 ML VIAL IV SCH ×4 (00:02→17:04)
[2016-12-08] MEDS: fentaNYL (PF) 50 MCG/ML 2 ML AMP IV PRN ×4 (00:02→22:46)
[2016-12-08] MEDS: PROPOFOL 500 MG in EMPTY BAG 1 BAG IV SCH ×11 (00:04→22:50)
[2016-12-08] MEDS: INSULIN LISPRO (humaLOG) 300 UNIT/3 ML VIAL SQ SCH ×4 (00:11→18:26)
[2016-12-08 00:12] LABS: Glucose,Whole Blood 209 mg/dL (75-99)
[2016-12-08] MEDS: metroNIDAZOLE-NS PMX 500 MG in SALINE 1 100ML.BAG IVPB SCH ×3 (00:13→15:24)
[2016-12-08] MEDS: ALBUTEROL NEBULIZED 2.5 MG/3 ML INHALATION PRN (03:10)
[2016-12-08] MEDS: LORazepam 2 MG/ML SYRINGE IV PRN (03:31)
[2016-12-08 05:24] LABS: Glucose,Whole Blood 250 mg/dL (75-99)
[2016-12-08] MEDS: PIPERACILLIN-TAZOBACTAM 3.375 GM in DEXTROSE/WATER 1 50ML.BAG IVPB SCH ×2 (05:28→17:08)
[2016-12-08 05:45] LABS: Potassium 4.8 mmol/L (3.5-5.1); Total Bilirubin 0.3 mg/dL (0.2-1.3); Total Protein 5.1 g/dL (6.3-8.2)
[2016-12-08 06:17] LABS: Anisocytosis Slight; Basophils % (A) 0 %; Eosinophils % (A) 0 %; HCT 31.8 % (34.0-46.0); HGB 10.1 gm/dL (11.4-16.0); Hypochromasia Marked; Luc # (Auto) 0.07; Luc % (Auto) 1; Lymphocytes # (A) 0.2 k/uL (1.0-4.8); Lymphocytes % (A) 4 %; MCH 27.9 pg (25.0-35.0); MCHC 31.9 g/dL (31.0-37.0); MCV 87.4 fL (80.0-100.0); Mean Platelet Volume 7.8; Monocytes # (A) 0.3 k/uL (0-1.0); Monocytes % (A) 5 %; Neutrophils % (A) 90 %; Poikilocytosis Moderate; RBC 3.64 m/uL (3.80-5.40); RDW 16.7 % (11.5-15.5); WBC 5.6 k/uL (3.8-10.6); WBC (Perox) 5.54
[2016-12-08 06:25] LABS: Magnesium 2.8 mg/dL (1.6-2.3)
[2016-12-08 06:28] LABS: INR 1.1 (<1.1); Prothrombin Time 11.1 sec (9.0-12.0)
[2016-12-08 06:43] LABS: Phosphorous 9.4 mg/dL (2.5-4.5)
--- NOTE | 2016-12-08 07:03 | XR ---
EXAMINATION TYPE: XR chest 1V portable DATE OF EXAM: 12/08/2016 COMPARISON: 12/07/2016 HISTORY: PICC line FINDINGS: There are bilateral pleural effusions with cardiomegaly and bibasilar infiltrate. There is a diffuse interstitial pattern. Left-sided PICC line stable in position. ET and NG tubes stable. Atherosclerot ic change aorta. IMPRESSION: 1. Bilateral infiltrate and pleural effusion stable. Correlate for mild venous congestion.
[2016-12-08] MEDS: IPRATROPIUM-ALBUTEROL 3 ML NEB INHALATION SCH ×4 (07:20→19:25)
[2016-12-08] MEDS: CALCIUM ACETATE 667 MG CAP PO SCH ×3 (07:56→17:04)
[2016-12-08] MEDS: PANTOPRAZOLE 40 MG/10 ML VIAL IV SCH (07:56)
[2016-12-08] MEDS: CARVEDILOL 6.25 MG TAB PO SCH (07:56)
[2016-12-08] MEDS: CHLORHEXIDINE GLUCONATE 15 ML CUP MUCOUS MEM SCH ×2 (07:57→19:57)
[2016-12-08] MEDS: cloNIDine HCL 0.1 MG TAB PO SCH (07:57)
[2016-12-08] MEDS: FUROSEMIDE 40 MG TAB PO SCH (07:58)
[2016-12-08] MEDS: amLODIPine 10 MG TAB PO SCH (07:58)
[2016-12-08 09:20] LABS: ABG HCO3 17 mmol/L (21-25); ABG PCO2 30 mmHg (35-45); ABG PH 7.37 (7.35-7.45); ABG PO2 91 mmHg (83-108); ABG TCO2 18 mmol/L (19-24)
[2016-12-08 09:21] LABS: ABG Base Excess -7.1 mmol/L
[2016-12-08] MEDS ORDERED: LABETALOL 5 MG/ML VIAL MDV IVP STA (09:39)
[2016-12-08] MEDS ORDERED: CARVEDILOL 6.25 MG TAB PO STA (09:40)
[2016-12-08] MEDS: ISOSORBIDE MONONITRATE ER 30 MG TAB.ER.24H PO SCH (09:46)
--- NOTE | 2016-12-08 11:19 | P.PN ---
Subjective Principal diagnosis: Acute cardiopulmonary arrest and acute respiratory failure This is a 66-year-old female patient who got admitted to the ED this morning with cardiopulmonary arrest. The patient has multiple medical problems and comorbidities. The patient has advanced COPD and she is an ex-smoker. She also has coronary artery disease with previous coronary interventions and stenting and most recently the patient had a cardiac catheterization that was done on 11/24/2016 and based on the cath, the patient had a patent stent to left main and RCA and there was no significant occlusion or anatomic obstruction. The patient's most recent echocardiogram also from November 2016 showed a preserved LV function with an ejection fraction of 50-55%. She suffers from chronic renal failure. Her baseline crit is around 1.58. She is morbidly obese. She has also various other comorbidities including chronic hypoxic arrest 30 failure, chronic diverticulosis, chronic gastritis, hypertension, previous history of stroke with right-sided weakness, hyperlipidemia, fibromyalgia and osteoarthritis. Her performance and functional status is been essentially very poor. Based on the reported history, the patient woke up this morning with significant shortness of breath. Her pulse ox was found to by in the low 80s by the . Note that the patient has home O2. Once the patient got loaded on the stretcher, the patient was found to be cardiac pulmonary arrest. At that point CPR was initiated. The patient was also bag and non-intubated in the field. The patient was on for approximately 20 minutes. During this time the patient received 5 rounds of epinephrine, 2 rounds of bicarb and ultimately on 7:19 AM, the patient's cardiac rhythm went back to sinus. In the emergency department the patient was intubated and placed on a mechanical ventilator. The patient was given a total of 2 L of IV fluids and subsequently she was found to be in acute pulmonary edema. CAT scan of the brain was done and was negative. Chest x-ray showed breath and pulmonary infiltrates typical of an underlying pulmonary edema. Currently the patient is a triple-lumen catheter in the right femoral vein. The patient is been resuscitated with IV fluids and pressors and currently she is on norepinephrine infusion running at 25 mics. She is also sedated on propofol at 10 mics. She is on a mechanical ventilator on assist control mode at the rate of 14, tidal volume of 450, FiO2 of 100% and a PEEP of 5. The blood gases showed a pH of 7.14 with a pCO2 of 72 and pO2 of 93. Peak air pressure quite elevated in the low 40s with a lower static airway pressure. The patient's lactic acid level is at 7.8. She is oliguric/anuric with minimal amount of urine output collected post Crenshaw catheter insertion. Note that she was given a dose of Lasix 40 push and the emergency department without any much success in terms of urine output. Her blood sugars are poorly controlled. Most recent blood sugar is above 300 and she'll be also started an insulin drip. On 12/04/2016, I'm seeing this patient in follow-up following her cardiac pulmonary arrest. Please refer to the details mentioned above in regards to her presentation. The patient's downtime was estimated to be around 20 minutes. I was able to given a sedation holiday this morning and the patient woke up nicely and she was able to follow simple commands. This was very reassuring and encouraging. She was not ready for any further weaning and based on that I put her back on sedation with Diprivan. She is still on a mechanical ventilator. She still in the 100% FiO2 with a PEEP of 5 and a tidal volume of 450. The blood gases showed no much improvement in his oxygenation, yet based on the route rider supervisor pulse oximeter analysis, was able to wean her down to 80% FiO2 and in the process of further bringing down FiO2 to maintain a saturation above 92%. Hemodynamically, she is off pressors completely. She is on Lasix drip at 5 mg an hour and she is producing adequate amount of urine output which seems to be improving. Her chest x-ray shows improvement in the volume status. There is development of bilateral pleural effusions. He was in a good location. Creatinine is up to 2.7. Rest of the electrodes are within normal limits with a mild hypernatremia of 146 On 12/05/2016, patient remains on mechanical ventilation, sedated, but according to the nurse who held sedation earlier, patient is arousable, follows simple instructions, hence that is reassuring that the patient did not at least sustained significant anoxic brain injury considering her prolonged cardiac arrest of more than 20 minutes. Patient is on mechanical ventilation, and her vent settings are tidal volume of 450 assist control rate of 24, PEEP of 5, FiO2 of 50%. Chest x-ray continues to show evidence of bilateral pleural effusions and congestive heart failure. Labs were reviewed hemoglobin is 7.3 WBC count is down to 9.7. ABG showed a pO2 of 97 pCO2 of 34 pH of 7.37. Renal profile seems to be worsening and I'm certain the patient must have developed acute tubular necrosis and acute kidney injury BUN is up to 56 creatinine is up to 3.50. Nephrology is addressing her acute renal failure. All her meds were reviewed, patient is now on insulin drip, his also on bronchodilators and IV steroids for her history of severe underlying COPD. On 12/06/2016, patient remains on mechanical ventilation, sedated, noted to become very asynchronous with the ventilator as soon as sedation was placed on hold for 10 minutes. Did not get a chance to address her mental status today, but as of yesterday patient was following simple instructions. I'm still concerned about the possibility of anoxic brain injury. Patient's ventilator settings are about the same have not changed much from above. ABG showed a pO2 of 94 pCO2 of 32 pH of 7.40. Hemoglobin is 6.7, still awaiting for blood to come from [place] for transfusion. Her blood loss is from chronic vaginal bleeding. Hemodynamically, the patient is stabilizing, not requiring any pressors at this point, her urine output seems to be good however her BUN is 67 creatinine of 3.49 apparently the patient developed acute kidney injury from her cardiac arrest and hypotension initially. Chest x-ray showed small right and moderate left pleural effusion atelectasis at the bases, lies in tubes were noted to be in proper position. Ultrasound of the chest showed small left pleural effusion, may or may not require thoracentesis, however at this point I will draw another weight and continue to monitor. No plans for thoracentesis at this point since the effusion is not large enough and will not make a significant improvement even if drain. On 12/07/2016, patient remains on mechanical ventilation, sedated, had lots of issues with hypertension overnight, patient is also bradycardic, patient was given Norvasc, did not improve discontinuation. Hence I recommended today adding Catapres 0.1 mg via nasogastric tube twice a day. Patient could not have her mental status assessed today, apparently was sedation is lower down patient gets extremely agitated. Ventilator settings remained the same, she still on 50% FiO2, pO2 is 90 pCO2 of 38 pH of 7.31. Renal profile remains poor but improving, creatinine is now 3.0 compared to 3.502 days ago. Clearly the patient developed some acute kidney injury from her cardiac arrest and developed acute tubular necrosis, we hope this will improve with time. Urine output is adequate She is making about 40-50 mL per hour. Patient did receive 2 units of packed RBCs yesterday, and her hemoglobin is 9.6 today. Patient is tolerating nutritional support while via nasogastric tube. Patient was reevaluated today on 12/08/2016, remains on mechanical ventilation, she had some intermittent episodes of desaturations last night, patient was adrien bag, suction, but not much was obtained. Finally the patient settled down , and she is now on FiO2 of 50%, PEEP of 5. I adjusted her flow rates, and her I:E ratio is1:2.5. ABG showed a pO2 of 91 pCO2 of 30 pH of 7.37 and this was on 65% FiO2. Electrolytes were reviewed, BUN is 90 creatinine is 3.2 bicarb is 16 ANION gap is 15. CBC is relatively unremarkable. Chest x-ray is basically about the same showing bilateral pleural effusions and by basilar atelectasis/ possible infiltrates. And there is evidence of mild venous congestion. Her last ultrasound of the chest showed small to moderate left pleural effusion, may consider repeat ultrasound and may consider thoracentesis if the patient saturations remain marginal. Otherwise patient is considered relatively high risk for thoracentesis while on mechanical ventilation and considering her body habitus. Objective - Vital Signs Vital signs: Vital Signs Temp 99.4 F 12/08/16 04:00 Pulse 68 12/08/16 07:40 Resp 24 12/08/16 07:00 BP 176/51 12/08/16 07:00 Pulse Ox 97 12/08/16 07:00 Intake & Output 12/07/16 12/08/16 12/08/16 18:59 06:59 18:59 Intake Total 8173.417 5925.812 151 Output Total 870 1550 75 Balance 909.461 -92.188 76 Weight 114.8 kg Intake: IV 1152.5 1000 75 0.9 NS 890 900 75 Piperacillin-Tazobactam 3 62.5 .375 gm In Dextrose/Water 1 50ml.bag @ 12.5 mls/hr IVPB Q12H [facility] Rx#: [id number] metroNIDAZOLE-NS PMX 500 200 100 mg In Saline 1 100ml.bag @ 100 mls/hr IVPB Q8HR [facility] Rx#:[id number] Intake, IV Titration 280.961 189.812 50 Amount Propofol 500 mg In Empty 280.961 189.812 50 Bag 1 bag @ Titrate IV . Q0M [facility] Rx#:[id number] Tube Feeding 286 208 26 Other 60 60 Output: Urine 870 1550 75 Other: Voiding Method Indwelling Catheter Indwelling Catheter # Bowel Movements 3 ABP, PAP, CO, CI - Last Documented Arterial Blood Pressure 168/49 - Exam Physical Exam: Revealed a 66-year-old female, obese, on mechanical ventilation, endotracheal tube is intact.orogastric tube is intact. HEENT:[Neck is supple.] [No neck masses.] [No thyromegaly.] [No JVD.]short obese neck is noted. Chest: [crackles at the bases bilaterally, some rhonchi were also noted. No wheezing.] Cardiac Exam: [Normal S1 and S2, no S3 gallop, no murmur.] Abdomen: [obese,Soft, nontender, no megaly, no rebound, no guarding, normal bowel sounds.] Extremities: [No clubbing, trace bipedal edema, no cyanosis.] Neurological Exam: cannot be assessed, patient is on propofol drip. - Labs CBC & Chem 7: 12/08/16 04:45 12/08/16 04:45 Labs: Abnormal Lab Results - Last 24 Hours (Table) 12/05/16 12/07/16 12/07/16 Range/Units 18:00 04:00 12:19 RBC (3.80-5.40) m/uL Hgb (11.4-16.0) gm/dL Hct (34.0-46.0) % RDW (11.5-15.5) % Plt Count (150-450) k/uL Lymphocytes # (1.0-4.8) k/uL ABG pCO2 (35-45) mmHg ABG HCO3 (21-25) mmol/L ABG Total CO2 (19-24) mmol/L Chloride (98-107) mmol/L Carbon Dioxide (22-30) mmol/L BUN (7-17) mg/dL Creatinine (0.52-1.04) mg/dL Glucose (74-99) mg/dL POC Glucose (mg/dL) 152 H (75-99) mg/dL Hemoglobin A1c 6.5 H (4.2-6.1) % Calcium (8.4-10.2) mg/dL Phosphorus (2.5-4.5) mg/dL Magnesium (1.6-2.3) mg/dL AST (14-36) U/L Total Protein (6.3-8.2) g/dL Albumin (3.5-5.0) g/dL Crossmatch See Detail 12/07/16 12/08/16 12/08/16 Range/Units 18:56 00:09 04:45 RBC (3.80-5.40) m/uL Hgb (11.4-16.0) gm/dL Hct (34.0-46.0) % RDW (11.5-15.5) % Plt Count (150-450) k/uL Lymphocytes # (1.0-4.8) k/uL ABG pCO2 (35-45) mmHg ABG HCO3 (21-25) mmol/L ABG Total CO2 (19-24) mmol/L Chloride 111 H (98-107) mmol/L Carbon Dioxide 16 L (22-30) mmol/L BUN 90 H* (7-17) mg/dL Creatinine 3.20 H (0.52-1.04) mg/dL Glucose 247 H (74-99) mg/dL POC Glucose (mg/dL) 244 H 209 H (75-99) mg/dL Hemoglobin A1c (4.2-6.1) % Calcium 8.0 L (8.4-10.2) mg/dL Phosphorus (2.5-4.5) mg/dL Magnesium (1.6-2.3) mg/dL AST 7 L (14-36) U/L Total Protein 5.1 L (6.3-8.2) g/dL Albumin 2.7 L (3.5-5.0) g/dL Crossmatch 12/08/16 12/08/16 12/08/16 Range/Units 04:45 04:45 05:22 RBC 3.64 L (3.80-5.40) m/uL Hgb 10.1 L (11.4-16.0) gm/dL Hct 31.8 L (34.0-46.0) % RDW 16.7 H (11.5-15.5) % Plt Count 126 L (150-450) k/uL Lymphocytes # 0.2 L (1.0-4.8) k/uL ABG pCO2 (35-45) mmHg ABG HCO3 (21-25) mmol/L ABG Total CO2 (19-24) mmol/L Chloride (98-107) mmol/L Carbon Dioxide (22-30) mmol/L BUN (7-17) mg/dL Creatinine (0.52-1.04) mg/dL Glucose (74-99) mg/dL POC Glucose (mg/dL) 250 H (75-99) mg/dL Hemoglobin A1c (4.2-6.1) % Calcium (8.4-10.2) mg/dL Phosphorus 9.4 H* (2.5-4.5) mg/dL Magnesium 2.8 H (1.6-2.3) mg/dL AST (14-36) U/L Total Protein (6.3-8.2) g/dL Albumin (3.5-5.0) g/dL Crossmatch 12/08/16 Range/Units 08:05 RBC (3.80-5.40) m/uL Hgb (11.4-16.0) gm/dL Hct (34.0-46.0) % RDW (11.5-15.5) % Plt Count (150-450) k/uL Lymphocytes # (1.0-4.8) k/uL ABG pCO2 30 L (35-45) mmHg ABG HCO3 17 L (21-25) mmol/L ABG Total CO2 18 L (19-24) mmol/L Chloride (98-107) mmol/L Carbon Dioxide (22-30) mmol/L BUN (7-17) mg/dL Creatinine (0.52-1.04) mg/dL Glucose (74-99) mg/dL POC Glucose (mg/dL) (75-99) mg/dL Hemoglobin A1c (4.2-6.1) % Calcium (8.4-10.2) mg/dL Phosphorus (2.5-4.5) mg/dL Magnesium (1.6-2.3) mg/dL AST (14-36) U/L Total Protein (6.3-8.2) g/dL Albumin (3.5-5.0) g/dL Crossmatch Microbiology - Last 24 Hours (Table) 12/03/16 07:30 Blood Culture - Preliminary Blood No Growth after 120 hours Assessment and Plan Plan: 1 acute cardio pulmonary arrest. Exact cause is not clear. It's possible that the patient had a combination of COPD and CHF exacerbation as the patient was found to be in acute pulmonary edema at a time of arrival. The patient was down for a total of 20 minutes during which she was given epinephrine and bicarb drip. The patient was in asystole./PEA 2 acute respiratory failure secondary to above, currently intubated on mechanical ventilator 3 acute decompensated heart failure and pulmonary edema, improving, but not resolved. May consider repeat ultrasound of the chest especially the left side , and we'll decide whether the patient would benefit from thoracentesis of the left pleural effusion. 4 acute COPD exacerbation with increased bronchospasm wheezing and elevated airway pressures 5 acute shock. Rule out cardiogenic shock post cardiac arrest , improved on no pressors upon presentation. 6 chronic renal failure, rule out a component of acute kidney injury on top of chronic renal failure, urine output is improving and the creatinine is on the rise 7 CVA, history of with some residual right-sided weakness 8 possible hypoxic/anoxic encephalopathy post cardiac arrest, and this is less likely clinically the patient was given a sedation holiday and she woke up nicely and she was following commands 9 units icterus cancer history of 10 CHF with diastolic dysfunction with a preserved LV function of 55% and secondary pulmonary hypertension 11 coronary artery disease with a recent cardiac catheterization showing patent stents to RCA and left main 12 diabetes mellitus type 2 13 hyperlipidemia 14 obesity BMI of 42 15 fibromyalgia 16 hyperlipidemia 17 hypothyroidism 8 suspected urinary tract infection 19 depression 20 small bilateral pleural effusions, we'll continue to monitor, no need for thoracentesis at this point. Recommendation: Continue present treatment plan including supportive care measures, antibiotics, steroids, bronchodilators, close monitoring of the renal status and renal profile, no plans to do thoracentesis at this point, discussed her condition with daughter and sister at bedside.. Patient remains critically ill, and even when the sedation was placed on hold for 10 minutes, patient was getting extremely agitated, and became a synchronous with mechanical ventilation. Hence decided to keep her back on mechanical ventilation, no plans to wean today. We'll continue to follow closely. Critical care time is 35 minutes. Catapres dose was increased to 0.2 mg twice a day. Time with Patient: Greater than 30
--- NOTE | 2016-12-08 11:23 | IR ---
PICC LINE PLACEMENT: HISTORY: Infection requiring long-term antibiotic therapy PROCEDURE: Ultrasound guidance of PICC line placement. MICROFILMING DOCUMENT PREPARER: Dr. Martinez. COMPLICATIONS: None ANESTHESIA: 1. 1% Lidocaine locally. FINDINGS/TECHNIQUE: The procedure was explained to the patient. The risks, complications, benefits and alternatives were discussed and any questions were answered. Informed consent was obtained. The patient was placed supine on the fluoroscopic table and prepped and draped in the usual sterile fas ion. Utilizing a 21 gauge needle and sonographic guidance, access in the left basilic vein was achi eved and there is placement of a 0.018 guidewire. The vein is patent. A 5-F. sheath was placed over the guidewire. The guidewire and dilator were removed and a 5-F. Double lumen PICC line was placed through the sheath with the chest x-ray confirming the tip at the level of the SVC. The sheath was r emoved, the catheter was flushed and sutured into position. The patient was stable throughout the pr ocedure and remained stable upon discharge from the Department of Radiology. The vein puncture was patent under ultrasound. A peterson scale image was obtained to document patency of the vein punctured. All elements of the maximal barrier technique were utilized. IMPRESSION: 1. Successful PICC line placement under ultrasound performed bedside within the ICU.
[2016-12-08 12:04] LABS: Glucose,Whole Blood 321 mg/dL (75-99)
--- NOTE | 2016-12-08 15:16 | P.PN ---
Progress Note - Text DATE OF SERVICE: 12/08/2016 PRESENTING COMPLAINT: Shortness of breath, cardiac arrest INTERVAL HISTORY: This patient presented after developing an acute exacerbation of CHF and subsequent cardiac arrest. Spontaneous breathing trial attempted today patient unable to tolerate, had an extreme episode of hypertension, systolic in the 200s.patient received additional Catapres, labetalol. Spontaneous breathing trial discontinued. [facility] was at the bedside discussing care options with family. Tracheostomy was also discussed by the ICU team with family. Ventilator settings: Assist control/volume control, rate 24, FiO2 65%, PEEP 8. MEDICATIONS: Propofol, insulin drip, Protonix, tube feeding at 24 ml/hr. Catapres 0.2 mg Heart rhythm: sinus bradycardia rate 40's-50's REVIEW OF SYSTEMS: Patient intubated. CURRENT MEDICATIONS As detailed above PHYSICAL EXAM: VITAL SIGNS: Temperature 98.1, heart rate 65, respirations 24, blood pressure 176/56, oxygen saturation 90% on mechanical ventilation at 65% FiO2 GENERAL APPEARANCE:Lying in bed, breathing comfortably on the vent. EYES: Pupils equal. Conjunctiva normal. NECK: JVD unable to assess. Mass not palpable. RESPIRATORY: Respiratory effort increased, on mechanical ventilation Lungs increased breath sounds secretions noted , CARDIOVASCULAR: First and second sounds noted. Moderate edema. ABDOMEN: Soft. Distended, Liver and spleen not palpable. No tenderness. No mass palpable. PSYCHIATRY: Unable to assess NEUROLOGICAL: Pupils sluggish secondary to sedation, withdraws to noxious stimuli. INVESTIGATIONS: BUN 90, creatinine 3.2, CBC unremarkable Chest x-ray reveals bilateral infiltrate and pleural effusions ASSESSMENT: 1. Acute on chronic congestive heart failure exacerbation from diastolic dysfunction, secondary to coronary artery disease, ejection fraction 55% with a recent cardiac catheterization, slow to respond 2. Cardiac arrest in a patient with underlying coronary artery disease. 3. Chronic obstructive pulmonary disease and an ex-smoker. 4. Chronic kidney disease stage III from diabetic nephropathy and hypertensive nephrosclerosis. 5. Chronic menorrhagia pending outpatient surgery. 6. Chronic diverticulosis. 7. 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 8. Essential hypertension, urgent. 9. Right arm weakness from old stroke. 10. Diabetes mellitus type 2 chronically on insulin. 11. Obesity, body mass index greater than 40, morbid type. 12. Coronary artery disease with stent to the left anterior descending artery and right coronary artery. 13. Hyperlipidemia. 14. Fibromyalgia. 15. Primary osteoarthritis of multiple joints bilateral 16. Urinary stress incontinence 17. Depression not otherwise specified 18. Acute hypoxic respiratory failure secondary to acute pulmonary edema from underlying coronary artery disease and congestive heart failure, on ventilator support, worsening. 19. Recurrent chronic blood loss anemia secondary to menorrhagia. 20. Acute cardiogenic shock from underlying coronary artery disease, improving. 21. Urinary tract infection, secondary to outflow obstruction, organism Klebsiella pneumoniae, present on admission. 22. Acute blood loss anemia, 10.1 hemoglobin , secondary to chronic menorrhagia 1 unit packed red cells given improving 23. Acute renal failure likely secondary to ATN/prerenal, sepsis and shock, worsening. PLAN: Continue current medications, and monitor closely renal status, no plans for thoracentesis at this time, long-term care plans discussed at the bedside with and daughter. Prognosis guarded. Patient , daughter, understand. LEAD FABRICATOR statement: Patient was seen and examined by nurse practitioner Connie Livingston and all elements of the case discussed with attending is Dr. Aguila
--- NOTE | 2016-12-08 15:16 | PN ---
Patient is seen for followup for acute kidney injury on top of chronic kidney disease. Currently patient remains intubated, her FiO2 is down to 60%. Blood pressure has been running high with systolic in the 200 range. On examination this morning, blood pressure was 162/49, heart rate 56 per minute. She is afebrile. Examination of the heart, S1 and S2. Examination of the lungs, bilateral breath sounds are heard. Abdomen is soft, distended, obese. Examination of lower extremities shows no significant edema. SOUND SYSTEM INSTALLER exam cannot be performed. Labs reveal hemoglobin 10.1 g/dL, sodium 142, potassium of 4.8, serum creatinine 3.2. BUN was 19, phosphorus was 3.4. Calcium 8.0. ASSESSMENT: 1. Acute kidney injury secondary to hypotension and ischemic acute tubular necrosis, currently nonoliguric, with good urine output. 2. Hypertension, partly volume sensitive, will increase the diuretics. 3. Disproportionately elevated BUN secondary to steroids. 4. Ventilator-dependent respiratory failure, continues to require increased FiO2. 5. Hyperphosphatemia secondary to renal failure, maintained on PhosLo. 6. Non-gap metabolic acidosis secondary to renal failure. 7. Status post Cardiac arrest. 8. Uterine cancer, needs hysterectomy, currently with scant bleeding. PLAN: Increase Coreg, may need to increase clonidine as well. Continue with Norvasc, will also change Lasix to IV. Repeat labs in a.m.
[2016-12-08] MEDS: INSULIN GLARGINE 100 UNIT/ML 10 ML VIAL SQ SCH ×2 (15:34→15:35)
[2016-12-08 15:35] LABS: Glucose,Whole Blood 280 mg/dL (75-99)
[2016-12-08] MEDS: CARVEDILOL 12.5 MG TAB PO SCH (17:04)
[2016-12-08 18:26] LABS: Glucose,Whole Blood 271 mg/dL (75-99)
[2016-12-08] MEDS: cloNIDine HCL 0.2 MG TAB PO SCH (19:57)
[2016-12-08] MEDS ORDERED: FUROSEMIDE 10 MG/ML 4 ML VIAL IV SCH (21:00)
[2016-12-09] MEDS: metroNIDAZOLE-NS PMX 500 MG in SALINE 1 100ML.BAG IVPB SCH ×4 (00:02→23:59)
[2016-12-09] MEDS: methylPREDNISolone SOD SUCCI 125 MG/2 ML VIAL IV SCH ×5 (00:02→23:50)
[2016-12-09 00:06] LABS: Glucose,Whole Blood 243 mg/dL (75-99)
[2016-12-09] MEDS: INSULIN LISPRO (humaLOG) 300 UNIT/3 ML VIAL SQ SCH ×4 (00:08→17:22)
[2016-12-09] MEDS: PROPOFOL 500 MG in EMPTY BAG 1 BAG IV SCH ×4 (01:17→06:14)
[2016-12-09] MEDS: LORazepam 2 MG/ML SYRINGE IV PRN ×2 (01:18→06:55)
[2016-12-09] MEDS: PIPERACILLIN-TAZOBACTAM 3.375 GM in DEXTROSE/WATER 1 50ML.BAG IVPB SCH ×2 (03:23→15:41)
[2016-12-09 04:54] LABS: Anisocytosis Slight; Basophils % (A) 0 %; CH 27.6; CHCM 31.4; Eosinophils % (A) 0 %; HDW 4.25; HGB 10.4 gm/dL (11.4-16.0); Hypochromasia Marked; Luc # (Auto) 0.08; Luc % (Auto) 1; Lymphocytes # (A) 0.3 k/uL (1.0-4.8); Lymphocytes % (A) 5 %; MCH 28.4 pg (25.0-35.0); MCHC 32.4 g/dL (31.0-37.0); MCV 87.5 fL (80.0-100.0); Mean Platelet Volume 9.1; Monocytes # (A) 0.3 k/uL (0-1.0); Monocytes % (A) 5 %; Neutrophils # (A) 5.4 k/uL (1.3-7.7); Neutrophils % (A) 88 %; Poikilocytosis Moderate; RBC 3.65 m/uL (3.80-5.40); WBC 6.1 k/uL (3.8-10.6); WBC (Perox) 6.37
[2016-12-09 05:09] LABS: Calcium 8.2 mg/dL (8.4-10.2); Potassium 4.8 mmol/L (3.5-5.1); Total Bilirubin 0.2 mg/dL (0.2-1.3); Total Protein 5.1 g/dL (6.3-8.2)
[2016-12-09 05:52] LABS: Glucose,Whole Blood 243 mg/dL (75-99)
[2016-12-09 06:22] LABS: Magnesium 2.8 mg/dL (1.6-2.3)
[2016-12-09 06:23] LABS: Phosphorous 8.4 mg/dL (2.5-4.5)
[2016-12-09] MEDS ORDERED: FUROSEMIDE 10 MG/ML 4 ML VIAL IV ONE (06:30)
[2016-12-09] MEDS: IPRATROPIUM-ALBUTEROL 3 ML NEB INHALATION SCH ×4 (07:20→19:44)
[2016-12-09 07:26] LABS: ABG HCO3 17 mmol/L (21-25); ABG PCO2 31 mmHg (35-45); ABG PH 7.36 (7.35-7.45); ABG PO2 82 mmHg (83-108)
[2016-12-09 07:27] LABS: ABG Base Excess -7.3 mmol/L; ABG TCO2 18 mmol/L (19-24)
--- NOTE | 2016-12-09 07:28 | PN ---
DATE OF SERVICE: 12/08/2016 ATTENDING NOTE: This patient seen and examined by me earlier today. I reviewed the note of my nurse practitioner, Ms. Livingston. Discussed, reviewed, additional findings below. This patient admitted with CHF exacerbation, cardiac arrest. Remains on the ventilator. Blood pressure had been running high over 200 systolic. Medications being adjusted. Earlier today the photo mask inspector spoke to the family with possible PEG tube and a trach. On exam, lungs decreased breath sounds. CARDIOVASCULAR: First and second sounds normal. NEUROLOGICAL: The patient is somewhat sluggish. ASSESSMENT: 1. Acute on chronic congestive heart failure exacerbation with diastolic dysfunction; now stabilized. 2. Essential hypertension, out of control. 3. Multiple medical problems. 4. Acute respiratory failure. PLAN: Prognosis remains guarded. Blood pressure medications being adjusted. Prognosis remains not good. Patient remains critically ill.
--- NOTE | 2016-12-09 07:33 | XR ---
EXAMINATION TYPE: XR chest 1V portable DATE OF EXAM: 12/09/2016 COMPARISON: 12/08/2016 INDICATION: Difficulty breathing previous abnormal chest TECHNIQUE: Single frontal view of the chest is obtained. FINDINGS: The heart size is normal. The pulmonary vasculature is normal. There is a moderate left pleural effusion. Small right pleural effusion is present. Right lower lobe infiltrate is present. Endotracheal tube is present with tip above the denise. Nasogastric tube has its tip in the left uppe r quadrant of the abdomen. PICC line enters on the left with tip in superior vena cava region. IMPRESSION: 1. Moderate left and small right pleural effusions, stable from prior study. 2. Right lower lobe infiltrate. 3. Lines and catheters stable from prior exam
[2016-12-09] MEDS: ISOSORBIDE MONONITRATE ER 30 MG TAB.ER.24H PO SCH (08:02)
[2016-12-09] MEDS: PANTOPRAZOLE 40 MG/10 ML VIAL IV SCH (08:02)
[2016-12-09] MEDS: CARVEDILOL 12.5 MG TAB PO SCH ×2 (08:02→17:18)
[2016-12-09] MEDS: amLODIPine 10 MG TAB PO SCH (08:02)
[2016-12-09] MEDS: cloNIDine HCL 0.2 MG TAB PO SCH ×3 (08:02→21:19)
[2016-12-09] MEDS: CALCIUM ACETATE 667 MG CAP PO SCH ×3 (08:02→17:17)
[2016-12-09] MEDS: CHLORHEXIDINE GLUCONATE 15 ML CUP MUCOUS MEM SCH ×2 (08:03→20:49)
[2016-12-09] MEDS: LABETALOL 5 MG/ML VIAL MDV IVP PRN (08:20)
[2016-12-09] MEDS: NITROPRUSSIDE 100 MG in DEXTROSE 5% IN WATER 250 ML IV SCH ×2 (10:24)
[2016-12-09] MEDS: fentaNYL (PF) 50 MCG/ML 2 ML AMP IV PRN ×3 (10:38→21:15)
--- NOTE | 2016-12-09 11:28 | P.PN ---
Subjective Principal diagnosis: Acute cardiopulmonary arrest and acute respiratory failure This is a 66-year-old female patient who got admitted to the ED this morning with cardiopulmonary arrest. The patient has multiple medical problems and comorbidities. The patient has advanced COPD and she is an ex-smoker. She also has coronary artery disease with previous coronary interventions and stenting and most recently the patient had a cardiac catheterization that was done on 11/24/2016 and based on the cath, the patient had a patent stent to left main and RCA and there was no significant occlusion or anatomic obstruction. The patient's most recent echocardiogram also from November 2016 showed a preserved LV function with an ejection fraction of 50-55%. She suffers from chronic renal failure. Her baseline crit is around 1.58. She is morbidly obese. She has also various other comorbidities including chronic hypoxic arrest 30 failure, chronic diverticulosis, chronic gastritis, hypertension, previous history of stroke with right-sided weakness, hyperlipidemia, fibromyalgia and osteoarthritis. Her performance and functional status is been essentially very poor. Based on the reported history, the patient woke up this morning with significant shortness of breath. Her pulse ox was found to by in the low 80s by the . Note that the patient has home O2. Once the patient got loaded on the stretcher, the patient was found to be cardiac pulmonary arrest. At that point CPR was initiated. The patient was also bag and non-intubated in the field. The patient was on for approximately 20 minutes. During this time the patient received 5 rounds of epinephrine, 2 rounds of bicarb and ultimately on 7:19 AM, the patient's cardiac rhythm went back to sinus. In the emergency department the patient was intubated and placed on a mechanical ventilator. The patient was given a total of 2 L of IV fluids and subsequently she was found to be in acute pulmonary edema. CAT scan of the brain was done and was negative. Chest x-ray showed breath and pulmonary infiltrates typical of an underlying pulmonary edema. Currently the patient is a triple-lumen catheter in the right femoral vein. The patient is been resuscitated with IV fluids and pressors and currently she is on norepinephrine infusion running at 25 mics. She is also sedated on propofol at 10 mics. She is on a mechanical ventilator on assist control mode at the rate of 14, tidal volume of 450, FiO2 of 100% and a PEEP of 5. The blood gases showed a pH of 7.14 with a pCO2 of 72 and pO2 of 93. Peak air pressure quite elevated in the low 40s with a lower static airway pressure. The patient's lactic acid level is at 7.8. She is oliguric/anuric with minimal amount of urine output collected post Crenshaw catheter insertion. Note that she was given a dose of Lasix 40 push and the emergency department without any much success in terms of urine output. Her blood sugars are poorly controlled. Most recent blood sugar is above 300 and she'll be also started an insulin drip. On 12/04/2016, I'm seeing this patient in follow-up following her cardiac pulmonary arrest. Please refer to the details mentioned above in regards to her presentation. The patient's downtime was estimated to be around 20 minutes. I was able to given a sedation holiday this morning and the patient woke up nicely and she was able to follow simple commands. This was very reassuring and encouraging. She was not ready for any further weaning and based on that I put her back on sedation with Diprivan. She is still on a mechanical ventilator. She still in the 100% FiO2 with a PEEP of 5 and a tidal volume of 450. The blood gases showed no much improvement in his oxygenation, yet based on the roofer assistant pulse oximeter analysis, was able to wean her down to 80% FiO2 and in the process of further bringing down FiO2 to maintain a saturation above 92%. Hemodynamically, she is off pressors completely. She is on Lasix drip at 5 mg an hour and she is producing adequate amount of urine output which seems to be improving. Her chest x-ray shows improvement in the volume status. There is development of bilateral pleural effusions. He was in a good location. Creatinine is up to 2.7. Rest of the electrodes are within normal limits with a mild hypernatremia of 146 On 12/05/2016, patient remains on mechanical ventilation, sedated, but according to the nurse who held sedation earlier, patient is arousable, follows simple instructions, hence that is reassuring that the patient did not at least sustained significant anoxic brain injury considering her prolonged cardiac arrest of more than 20 minutes. Patient is on mechanical ventilation, and her vent settings are tidal volume of 450 assist control rate of 24, PEEP of 5, FiO2 of 50%. Chest x-ray continues to show evidence of bilateral pleural effusions and congestive heart failure. Labs were reviewed hemoglobin is 7.3 WBC count is down to 9.7. ABG showed a pO2 of 97 pCO2 of 34 pH of 7.37. Renal profile seems to be worsening and I'm certain the patient must have developed acute tubular necrosis and acute kidney injury BUN is up to 56 creatinine is up to 3.50. Nephrology is addressing her acute renal failure. All her meds were reviewed, patient is now on insulin drip, his also on bronchodilators and IV steroids for her history of severe underlying COPD. On 12/06/2016, patient remains on mechanical ventilation, sedated, noted to become very asynchronous with the ventilator as soon as sedation was placed on hold for 10 minutes. Did not get a chance to address her mental status today, but as of yesterday patient was following simple instructions. I'm still concerned about the possibility of anoxic brain injury. Patient's ventilator settings are about the same have not changed much from above. ABG showed a pO2 of 94 pCO2 of 32 pH of 7.40. Hemoglobin is 6.7, still awaiting for blood to come from [place] for transfusion. Her blood loss is from chronic vaginal bleeding. Hemodynamically, the patient is stabilizing, not requiring any pressors at this point, her urine output seems to be good however her BUN is 67 creatinine of 3.49 apparently the patient developed acute kidney injury from her cardiac arrest and hypotension initially. Chest x-ray showed small right and moderate left pleural effusion atelectasis at the bases, lies in tubes were noted to be in proper position. Ultrasound of the chest showed small left pleural effusion, may or may not require thoracentesis, however at this point I will draw another weight and continue to monitor. No plans for thoracentesis at this point since the effusion is not large enough and will not make a significant improvement even if drain. On 12/07/2016, patient remains on mechanical ventilation, sedated, had lots of issues with hypertension overnight, patient is also bradycardic, patient was given Norvasc, did not improve discontinuation. Hence I recommended today adding Catapres 0.1 mg via nasogastric tube twice a day. Patient could not have her mental status assessed today, apparently was sedation is lower down patient gets extremely agitated. Ventilator settings remained the same, she still on 50% FiO2, pO2 is 90 pCO2 of 38 pH of 7.31. Renal profile remains poor but improving, creatinine is now 3.0 compared to 3.502 days ago. Clearly the patient developed some acute kidney injury from her cardiac arrest and developed acute tubular necrosis, we hope this will improve with time. Urine output is adequate She is making about 40-50 mL per hour. Patient did receive 2 units of packed RBCs yesterday, and her hemoglobin is 9.6 today. Patient is tolerating nutritional support while via nasogastric tube. Patient was reevaluated today on 12/08/2016, remains on mechanical ventilation, she had some intermittent episodes of desaturations last night, patient was adrien bag, suction, but not much was obtained. Finally the patient settled down , and she is now on FiO2 of 50%, PEEP of 5. I adjusted her flow rates, and her I:E ratio is1:2.5. ABG showed a pO2 of 91 pCO2 of 30 pH of 7.37 and this was on 65% FiO2. Electrolytes were reviewed, BUN is 90 creatinine is 3.2 bicarb is 16 ANION gap is 15. CBC is relatively unremarkable. Chest x-ray is basically about the same showing bilateral pleural effusions and by basilar atelectasis/ possible infiltrates. And there is evidence of mild venous congestion. Her last ultrasound of the chest showed small to moderate left pleural effusion, may consider repeat ultrasound and may consider thoracentesis if the patient saturations remain marginal. Otherwise patient is considered relatively high risk for thoracentesis while on mechanical ventilation and considering her body habitus. Patient was reevaluated today on 12/09/2016, remains on mechanical ventilation, has been off propofol for the last hour and a half, and the best response I can get is basically opening her eyes to deep painful stimuli. No other responses were noted. Blood pressure is extremely elevated in spite of multiple medications used to lower the blood pressure. Hence I have recommended a CT of the brain, I also recommended starting the patient on nitroprusside. Ventilator settings are unchanged remains on 50%, however I cut down the PEEP to 5. ABG showed a pO2 of 82 pCO2 of 31 pH of 7.36. Chest x-ray continues to show bilateral pleural effusions left more so than right. CBC showed WBC 6.1 hemoglobin is 10.4. Electrolytes were reviewed the BUN is 99 creatinine is 2.90 , showing slight improvement compared to the last few days. Urine output is acceptable. Rest of the labs were noted to be unremarkable. The main to issues were dealing with right now include her mental status change and her elevated blood pressure. Patient remains on nutritional support, antibiotics, bronchodilators, and I plan to do a CT of the brain today and I also plan to start nitroprusside to lower the blood pressure. Objective - Vital Signs Vital signs: Vital Signs Temp 98.2 F 12/09/16 08:00 Pulse 55 L 12/09/16 10:00 Resp 27 H 12/09/16 10:00 BP 201/58 12/09/16 08:00 Pulse Ox 98 12/09/16 10:00 Intake & Output 12/08/16 12/09/16 12/09/16 18:59 06:59 18:59 Intake Total 1842.401 9469.519 664.712 Output Total 1375 1645 750 Balance 154.577 -325.481 -85.288 Weight 116.5 kg 116.5 kg 116.5 kg Intake: IV 1000 775 425 0.9 NS 900 675 375 Piperacillin-Tazobactam 3 100 50 .375 gm In Dextrose/Water 1 50ml.bag @ 12.5 mls/hr IVPB Q12H [facility]UST[facility] Rx#: [id number] metroNIDAZOLE-NS PMX 500 100 mg In Saline 1 100ml.bag @ 100 mls/hr IVPB Q8HR DUSTIN Rx#:[id number] Intake, IV Titration 183.577 258.519 27.712 Amount Propofol 500 mg In Empty 183.577 258.519 27.712 Bag 1 bag @ Titrate IV . Q0M [facility] Rx#:[id number] Tube Feeding 286 286 182 Other 60 30 Output: Urine 1375 1645 750 Other: Voiding Method Indwelling Catheter Indwelling Catheter Indwelling Catheter # Bowel Movements 1 1 ABP, PAP, CO, CI - Last Documented Arterial Blood Pressure 204/51 - Exam Physical Exam: Revealed a 66-year-old female, obese, on mechanical ventilation, endotracheal tube is intact.orogastric tube is intact. HEENT:[Neck is supple.] [No neck masses.] [No thyromegaly.] [No JVD.]short obese neck is noted. Chest: [crackles at the bases bilaterally, some rhonchi were also noted. No wheezing.] Cardiac Exam: [Normal S1 and S2, no S3 gallop, no murmur.] Abdomen: [obese,Soft, nontender, no megaly, no rebound, no guarding, normal bowel sounds. Positive periumbilical hernia noted.] Extremities: [No clubbing, 1+ bipedal edema, no cyanosis.] Neurological Exam: Patient opens eyes only to deep painful stimuli, has been off propofol for the last hour and a half. - Labs CBC & Chem 7: 12/09/16 04:45 12/09/16 04:45 Labs: Abnormal Lab Results - Last 24 Hours (Table) 12/08/16 12/08/16 12/08/16 Range/Units 12:02 15:32 18:24 RBC (3.80-5.40) m/uL Hgb (11.4-16.0) gm/dL Hct (34.0-46.0) % RDW (11.5-15.5) % Plt Count (150-450) k/uL Lymphocytes # (1.0-4.8) k/uL ABG pCO2 (35-45) mmHg ABG pO2 (83-108) mmHg ABG HCO3 (21-25) mmol/L ABG Total CO2 (19-24) mmol/L Chloride (98-107) mmol/L Carbon Dioxide (22-30) mmol/L BUN (7-17) mg/dL Creatinine (0.52-1.04) mg/dL Glucose (74-99) mg/dL POC Glucose (mg/dL) 321 H 280 H 271 H (75-99) mg/dL Calcium (8.4-10.2) mg/dL Phosphorus (2.5-4.5) mg/dL Magnesium (1.6-2.3) mg/dL AST (14-36) U/L Total Protein (6.3-8.2) g/dL Albumin (3.5-5.0) g/dL 12/09/16 12/09/16 12/09/16 Range/Units 00:04 04:45 04:45 RBC 3.65 L (3.80-5.40) m/uL Hgb 10.4 L (11.4-16.0) gm/dL Hct 32.0 L (34.0-46.0) % RDW 17.0 H (11.5-15.5) % Plt Count 122 L (150-450) k/uL Lymphocytes # 0.3 L (1.0-4.8) k/uL ABG pCO2 (35-45) mmHg ABG pO2 (83-108) mmHg ABG HCO3 (21-25) mmol/L ABG Total CO2 (19-24) mmol/L Chloride 113 H (98-107) mmol/L Carbon Dioxide 18 L (22-30) mmol/L BUN 99 H* (7-17) mg/dL Creatinine 2.90 H (0.52-1.04) mg/dL Glucose 233 H (74-99) mg/dL POC Glucose (mg/dL) 243 H (75-99) mg/dL Calcium 8.2 L (8.4-10.2) mg/dL Phosphorus (2.5-4.5) mg/dL Magnesium (1.6-2.3) mg/dL AST 8 L (14-36) U/L Total Protein 5.1 L (6.3-8.2) g/dL Albumin 2.7 L (3.5-5.0) g/dL 12/09/16 12/09/16 12/09/16 Range/Units 04:45 05:49 07:10 RBC (3.80-5.40) m/uL Hgb (11.4-16.0) gm/dL Hct (34.0-46.0) % RDW (11.5-15.5) % Plt Count (150-450) k/uL Lymphocytes # (1.0-4.8) k/uL ABG pCO2 31 L (35-45) mmHg ABG pO2 82 L (83-108) mmHg ABG HCO3 17 L (21-25) mmol/L ABG Total CO2 18 L (19-24) mmol/L Chloride (98-107) mmol/L Carbon Dioxide (22-30) mmol/L BUN (7-17) mg/dL Creatinine (0.52-1.04) mg/dL Glucose (74-99) mg/dL POC Glucose (mg/dL) 243 H (75-99) mg/dL Calcium (8.4-10.2) mg/dL Phosphorus 8.4 H* (2.5-4.5) mg/dL Magnesium 2.8 H (1.6-2.3) mg/dL AST (14-36) U/L Total Protein (6.3-8.2) g/dL Albumin (3.5-5.0) g/dL Microbiology - Last 24 Hours (Table) 12/03/16 07:30 Blood Culture - Final Blood No Growth after 144 hours Assessment and Plan Plan: 1 acute cardio pulmonary arrest. Exact cause is not clear. It's possible that the patient had a combination of COPD and CHF exacerbation as the patient was found to be in acute pulmonary edema at a time of arrival. The patient was down for a total of 20 minutes during which she was given epinephrine and bicarb drip. The patient was in asystole./PEA 2 acute respiratory failure secondary to above, currently intubated on mechanical ventilator 3 acute decompensated heart failure and pulmonary edema, improving, but not resolved. May consider repeat ultrasound of the chest especially the left side , and we'll decide whether the patient would benefit from thoracentesis of the left pleural effusion. 4 acute COPD exacerbation with increased bronchospasm wheezing and elevated airway pressures/resolved 5 acute shock. Rule out cardiogenic shock post cardiac arrest , improved on no pressors upon presentation. 6 chronic renal failure, rule out a component of acute kidney injury on top of chronic renal failure, urine output is improving and the creatinine is on the rise 7 CVA, history of with some residual right-sided weakness 8 possible hypoxic/anoxic encephalopathy post cardiac arrest, and this is less likely clinically the patient was given a sedation holiday and she woke up nicely and she was following commands. Repeat CT of the brain was ordered today 9 uterine cancer history of 10 CHF with diastolic dysfunction with a preserved LV function of 55% and secondary pulmonary hypertension 11 coronary artery disease with a recent cardiac catheterization showing patent stents to RCA and left main 12 diabetes mellitus type 2 13 hyperlipidemia 14 obesity BMI of 42 15 fibromyalgia 16 hyperlipidemia 17 hypothyroidism 8 suspected urinary tract infection 19 depression 20 small bilateral pleural effusions, we'll continue to monitor, no need for thoracentesis at this point. Recommendation: Continue present treatment plan including supportive care measures, antibiotics, steroids, bronchodilators, close monitoring of the renal status and renal profile, no plans to do thoracentesis at this point, discussed her condition with at bedside.. Patient remains critically ill, blood pressure remains a major issue at this point, hence I plan to start the patient on nitroprusside, and I plan to do a CT of the brain today. Patient has been off sedation for the last hour and a half, and only responds I could get is opening eyes upon deep painful stimuli only. No other responses were noted. Patient remains critically ill, critical care time is 40 minutes. Time with Patient: Greater than 30
[2016-12-09 11:46] LABS: Glucose,Whole Blood 248 mg/dL (75-99)
--- NOTE | 2016-12-09 12:32 | CT ---
EXAMINATION TYPE: CT brain wo con DATE OF EXAM: 12/09/2016 COMPARISON: 12/03/2016 HISTORY: anoxic brain injury CT DLP: 1089.3 mGycm Automated exposure control for dose reduction was used. FINDINGS: NG and ET tubes suggested. Calcification the basal ganglia noted. There is low-attenuation within the posterior limb internal capsule bilaterally which appears stable from multiple previous exams. No si gnificant sulcal effacement. No acute hemorrhage. Hypertrophic change of the inner table suggestive o f hyperostosis. Osteoma the frontal bone. Tiny remote lacunar infarction right basal ganglia. Periventricular hypoattenuation is nonspecific most likely in the basis of microvascular white matter ischemia. IMPRESSION: NO EVIDENCE OF SULCAL EFFACEMENT. NO ACUTE HEMORRHAGE. CORRELATE WITH MRI IF THERE IS CONCERN FOR ACU TE ISCHEMIA.
--- NOTE | 2016-12-09 12:52 | PN ---
Patient is seen for followup for acute kidney injury. She remains on the vent. Blood pressure has been running high. Patient is maintained on Coreg, Norvasc and clonidine. She was given a dose of labetalol yesterday, which she tolerated. She continues to have good urine output. On examination, patient is sedated and on the vent. Blood pressure was high at 204/51, heart rate 65 per minute. She is afebrile. Examination of the heart, S1 and S2. Examination of the lung, bilateral breath sounds are heard. Abdomen is soft, distended, nontender. Examination of the lower extremities shows trace edema bilaterally. WAITER/WAITRESS TAKE OUT exam cannot be performed. Labs show sodium of 142, potassium 4.8. Hemoglobin 10.4 g/dL. ASSESSMENT: 1. Acute kidney injury, acute tubular necrosis secondary to hypotension and hypoperfusion. Renal function fairly stable for the last few days. The BUN is disproportionately elevated secondary to steroids. 2. Volume overload. Will increase Lasix to 60 mg IV q.12 hours. This will probably help the hypertension as well. 3. Hypertension, partly volume sensitive. Will add IV labetalol. Control the blood pressure. Patient is allergic to HYDRALAZINE. She is maintained on Coreg, clonidine and Norvasc. 4. Ventilator-dependent respiratory failure. 5. Status post cardiac arrest. 6. Hyperphosphatemia, maintained on phosphate binders. PLAN: Increase Lasix, add IV labetalol. I will also increase the clonidine to 0.2 mg t.i.d. Consider decreasing steroids.
--- NOTE | 2016-12-09 14:16 | P.PN ---
Progress Note - Text DATE OF SERVICE: 12/09/2016 PRESENTING COMPLAINT: Shortness of breath, cardiac arrest INTERVAL HISTORY: This patient presented after developing an acute exacerbation of CHF and subsequent cardiac arrest. Sedation lifted, opens eyes to deep painful stimuli , blood pressure remains elevated in spite of multiple medications given. NIpride initiated with good response. Head CT ordered, no acute hemorrhage no sulcal effacement.Tiny remote lacunar infarct right basal ganglia. Breathing comfortably on the vent FiO2 50%, PEEP of 5, rate of 24. Ventilator settings: Assist control/volume control, rate 24, FiO2 50%, PEEP 5. MEDICATIONS: Propofol, insulin drip, Protonix, tube feeding at 24 ml/hr. Catapres 0.2 mg, nitroprusside drip, Norvasc, Coreg, Lasix, labetalol, Imdur, Solu-Medrol. Heart rhythm: sinus bradycardia rate 40's-50's REVIEW OF SYSTEMS: Patient intubated. CURRENT MEDICATIONS As detailed above PHYSICAL EXAM: VITAL SIGNS: 98.4, pulse 57, respirations 21, blood pressure 123/40, oxygen saturation 94% on mechanical ventilation at 50% FiO2. GENERAL APPEARANCE:Lying in bed, breathing comfortably on the vent. EYES: Pupils equal. Conjunctiva normal. NECK: JVD unable to assess. Mass not palpable. RESPIRATORY: Respiratory effort increased, on mechanical ventilation Lungs increased breath sounds secretions noted , CARDIOVASCULAR: First and second sounds noted. Moderate edema. ABDOMEN: Soft. Distended, Liver and spleen not palpable. No tenderness. No mass palpable. PSYCHIATRY: Unable to assess NEUROLOGICAL: Pupils sluggish secondary to sedation, opens eyes to noxious stimuli. INVESTIGATIONS: BUN 99, creatinine 2.90, hemoglobin 10.4, platelet count 122. Chest x-ray reveals bilateral infiltrate and pleural effusions Computed tomography scan: No evidence of sulcal effacement tiny remote lacunar infarct right basal ganglia. ASSESSMENT: 1. Acute on chronic congestive heart failure exacerbation from diastolic dysfunction, secondary to coronary artery disease, ejection fraction 55% with a recent cardiac catheterization, now stabilized 2. Cardiac arrest in a patient with underlying coronary artery disease. 3. Chronic obstructive pulmonary disease and an ex-smoker. 4. Chronic kidney disease stage III from diabetic nephropathy and hypertensive nephrosclerosis. 5. Chronic menorrhagia pending outpatient surgery. 6. Chronic diverticulosis. 7. 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 8. Essential hypertension, improved. 9. Right arm weakness from old stroke. 10. Diabetes mellitus type 2 chronically on insulin. 11. Obesity, body mass index greater than 40, morbid type. 12. Coronary artery disease with stent to the left anterior descending artery and right coronary artery. 13. Hyperlipidemia. 14. Fibromyalgia. 15. Primary osteoarthritis of multiple joints bilateral 16. Urinary stress incontinence 17. Depression not otherwise specified 18. Acute hypoxic respiratory failure secondary to acute pulmonary edema from underlying coronary artery disease and congestive heart failure, on ventilator support, slow to wean. 19. Recurrent chronic blood loss anemia secondary to menorrhagia. 20. Acute cardiogenic shock from underlying coronary artery disease, slowly improving. 21. Urinary tract infection, secondary to outflow obstruction, organism Klebsiella pneumoniae, present on admission. 22. Acute blood loss anemia, 10.1 hemoglobin , secondary to chronic menorrhagia 1 unit packed red cells given improving 23. Acute renal failure likely secondary to ATN/prerenal, sepsis and shock, slowly improving. 24. Multiple medical problems. 25. Acute respiratory failure secondary to congestive heart failure, coronary artery disease. PLAN: Continue current medications, and monitor closely renal status, neurologic status, possibility of trach placement soon. Discussion had with patient , and sister, continuing discuss options prognosis, decision-making process. Prognosis guarded. Patient , daughter, understand. COMPOSITION PROFESSOR statement: Patient was seen and examined by nurse practitioner Connie Livingston and all elements of the case discussed with attending is Dr. Aguila
[2016-12-09 17:22] LABS: Glucose,Whole Blood 217 mg/dL (75-99)
[2016-12-09 17:23] LABS: Glucose,Whole Blood 222 mg/dL (75-99)
[2016-12-09] MEDS: FUROSEMIDE 10 MG/ML 4 ML VIAL IV SCH (20:49)
[2016-12-09] MEDS: INSULIN GLARGINE 100 UNIT/ML 10 ML VIAL SQ SCH (20:50)
[2016-12-10] MEDS: INSULIN LISPRO (humaLOG) 300 UNIT/3 ML VIAL SQ SCH ×4 (00:05→17:22)
[2016-12-10 00:07] LABS: Glucose,Whole Blood 249 mg/dL (75-99)
[2016-12-10] MEDS: NITROPRUSSIDE 100 MG in DEXTROSE 5% IN WATER 250 ML IV SCH ×4 (01:17→19:30)
[2016-12-10] MEDS: fentaNYL (PF) 50 MCG/ML 2 ML AMP IV PRN ×4 (02:51→20:20)
[2016-12-10] MEDS: PIPERACILLIN-TAZOBACTAM 3.375 GM in DEXTROSE/WATER 1 50ML.BAG IVPB SCH ×2 (02:56→14:45)
[2016-12-10] MEDS: PROPOFOL 500 MG in EMPTY BAG 1 BAG IV SCH ×3 (03:14→20:13)
[2016-12-10] MEDS: methylPREDNISolone SOD SUCCI 125 MG/2 ML VIAL IV SCH ×3 (06:03→17:22)
[2016-12-10 06:10] LABS: Glucose,Whole Blood 228 mg/dL (75-99)
[2016-12-10 06:19] LABS: Anisocytosis Slight; CH 27.5; CHCM 31.7; HDW 4.18; HGB 10.6 gm/dL (11.4-16.0); Hypochromasia Marked; MCH 27.7 pg (25.0-35.0); MCV 86.8 fL (80.0-100.0); Mean Platelet Volume 8.2; Poikilocytosis Moderate; RBC 3.81 m/uL (3.80-5.40); WBC 10.1 k/uL (3.8-10.6)
[2016-12-10 06:53] LABS: Calcium 8.3 mg/dL (8.4-10.2); Magnesium 2.9 mg/dL (1.6-2.3); Phosphorous 7.6 mg/dL (2.5-4.5); Potassium 4.6 mmol/L (3.5-5.1)
--- NOTE | 2016-12-10 07:44 | PN ---
DATE OF SERVICE: 12/09/2016 ATTENDING NOTE: Patient was seen and examined by me earlier today. Reviewed the notes of my nurse practitioner, Ms. Livingston. Discussed, reviewed and additional findings below. Patient admitted with CHF exacerbation and cardiac arrest. Blood pressure has been running very high and was put on Nipride drip. is at bedside. On exam, LUNGS: Decreased breath sounds. CARDIOVASCULAR: First and second sounds normal. ASSESSMENT: 1. Malignant hypertension. Patient requiring IV Nipride. 2. Acute respiratory failure with ventilator support. 3. Acute congestive heart failure, stabilized. PLAN: Continue current medication and treatment plan. Care was discussed with Dr. Caceres early today. Prognosis remains guarded. Talked to the at the bedside. Prognosis not good.
[2016-12-10] MEDS: CALCIUM ACETATE 667 MG CAP PO SCH ×3 (07:53→16:15)
[2016-12-10] MEDS: CARVEDILOL 12.5 MG TAB PO SCH ×2 (07:53→16:17)
[2016-12-10] MEDS: FUROSEMIDE 10 MG/ML 4 ML VIAL IV SCH (07:53)
[2016-12-10] MEDS: metroNIDAZOLE-NS PMX 500 MG in SALINE 1 100ML.BAG IVPB SCH ×2 (07:53→16:17)
[2016-12-10] MEDS: cloNIDine HCL 0.2 MG TAB PO SCH (07:53)
[2016-12-10] MEDS: PANTOPRAZOLE 40 MG/10 ML VIAL IV SCH (07:54)
[2016-12-10] MEDS: amLODIPine 10 MG TAB PO SCH (07:54)
[2016-12-10] MEDS: CHLORHEXIDINE GLUCONATE 15 ML CUP MUCOUS MEM SCH ×2 (07:54→20:19)
[2016-12-10] MEDS: ISOSORBIDE MONONITRATE ER 30 MG TAB.ER.24H PO SCH (07:55)
[2016-12-10] MEDS: IPRATROPIUM-ALBUTEROL 3 ML NEB INHALATION SCH ×4 (08:00→19:21)
--- NOTE | 2016-12-10 08:01 | XR ---
EXAMINATION TYPE: XR chest 1V portable DATE OF EXAM: 12/10/2016 COMPARISON: 12/09/2016 HISTORY: Tube placement FINDINGS: There are bilateral pleural effusions with cardiomegaly and bibasilar infiltrate. There is a diffuse interstitial pattern. ET and NG tube stable. Central line stable. Atherosclerotic change aorta. Hype rtrophic change of the spine. IMPRESSION: 1. Bilateral infiltrate and pleural effusion. Differential includes pneumonia versus CHF. Findings st able.
[2016-12-10 09:15] LABS: ABG PCO2 30 mmHg (35-45); ABG PH 7.35 (7.35-7.45); ABG PO2 71 mmHg (83-108)
[2016-12-10 09:16] LABS: ABG Base Excess -8.4 mmol/L; ABG HCO3 16 mmol/L (21-25); ABG TCO2 17 mmol/L (19-24)
--- NOTE | 2016-12-10 10:02 | PN ---
Patient is seen for followup for acute kidney injury on top of chronic kidney disease. Patient remains on the vent. She is maintained on Nipride drip, which was initially at 0.2; however, it has gone up now. Apparently patient was maintained on IV fluids, which I am not sure how that started. Her old blood pressure medications have also been increased. She continues to have good urine output at about 50 to 70 mL/h. Serum creatinine is at 2.8 mg/dL. On examination today, blood pressure 194/63, heart rate 81 per minute. She is afebrile. Lower extremities show edema 1+ bilaterally. ABDOMEN: Obese distended. Patient remains on the vent. FiO2 is at 50%, O2 sats at 94%. 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 She has an NG tube in place. Labs show sodium 144, potassium 4.6, BUN 116, serum creatinine 2.8. Hemoglobin 10.6 g/dL. ASSESSMENT: 1. Acute kidney injury, most likely acute tubular necrosis, renal function currently fairly stable over the last 3 days with serum creatinine staying at 2.8 to 3.0 mg/dL. Patient has good urine output; however, she is significantly volume overloaded. I will start her on Lasix drip. The IV fluids are discontinued and if she remains significantly hypertensive and volume overloaded, we will need to start dialysis. 2. Ventilator-dependent respiratory failure. 3. Status post cardiopulmonary arrest. 4. Metabolic acidosis, maintained on oral sodium bicarbonate. 5. Disproportionately elevated BUN secondary to steroids. 6. Hyperphosphatemia associated with renal failure, maintained on phosphate binders. PLAN: Start Lasix drip, discontinue IV fluids, increase clonidine and change Norvasc to Procardia and try to wean off Nipride drip. We will need to start dialysis if her volume status does not improve and blood pressure is not better controlled.
[2016-12-10] MEDS: FUROSEMIDE 250 MG in SODIUM CHLORIDE 0.9% 225 ML IVP SCH (10:04)
[2016-12-10] MEDS: SODIUM BICARBONATE TAB 650 MG TAB PO SCH ×3 (10:05→21:56)
--- NOTE | 2016-12-10 11:01 | P.PN ---
Subjective Principal diagnosis: Acute cardiopulmonary arrest and acute respiratory failure This is a 66-year-old female patient who got admitted to the ED this morning with cardiopulmonary arrest. The patient has multiple medical problems and comorbidities. The patient has advanced COPD and she is an ex-smoker. She also has coronary artery disease with previous coronary interventions and stenting and most recently the patient had a cardiac catheterization that was done on 11/24/2016 and based on the cath, the patient had a patent stent to left main and RCA and there was no significant occlusion or anatomic obstruction. The patient's most recent echocardiogram also from November 2016 showed a preserved LV function with an ejection fraction of 50-55%. She suffers from chronic renal failure. Her baseline crit is around 1.58. She is morbidly obese. She has also various other comorbidities including chronic hypoxic arrest 30 failure, chronic diverticulosis, chronic gastritis, hypertension, previous history of stroke with right-sided weakness, hyperlipidemia, fibromyalgia and osteoarthritis. Her performance and functional status is been essentially very poor. Based on the reported history, the patient woke up this morning with significant shortness of breath. Her pulse ox was found to by in the low 80s by the . Note that the patient has home O2. Once the patient got loaded on the stretcher, the patient was found to be cardiac pulmonary arrest. At that point CPR was initiated. The patient was also bag and non-intubated in the field. The patient was on for approximately 20 minutes. During this time the patient received 5 rounds of epinephrine, 2 rounds of bicarb and ultimately on 7:19 AM, the patient's cardiac rhythm went back to sinus. In the emergency department the patient was intubated and placed on a mechanical ventilator. The patient was given a total of 2 L of IV fluids and subsequently she was found to be in acute pulmonary edema. CAT scan of the brain was done and was negative. Chest x-ray showed breath and pulmonary infiltrates typical of an underlying pulmonary edema. Currently the patient is a triple-lumen catheter in the right femoral vein. The patient is been resuscitated with IV fluids and pressors and currently she is on norepinephrine infusion running at 25 mics. She is also sedated on propofol at 10 mics. She is on a mechanical ventilator on assist control mode at the rate of 14, tidal volume of 450, FiO2 of 100% and a PEEP of 5. The blood gases showed a pH of 7.14 with a pCO2 of 72 and pO2 of 93. Peak air pressure quite elevated in the low 40s with a lower static airway pressure. The patient's lactic acid level is at 7.8. She is oliguric/anuric with minimal amount of urine output collected post C[place]shaw catheter insertion. Note that she was given a dose of Lasix 40 push and the emergency department without any much success in terms of urine output. Her blood sugars are poorly controlled. Most recent blood sugar is above 300 and she'll be also started an insulin drip. On 12/04/2016, I'm seeing this patient in follow-up following her cardiac pulmonary arrest. Please refer to the details mentioned above in regards to her presentation. The patient's downtime was estimated to be around 20 minutes. I was able to given a sedation holiday this morning and the patient woke up nicely and she was able to follow simple commands. This was very reassuring and encouraging. She was not ready for any further weaning and based on that I put her back on sedation with Diprivan. She is still on a mechanical ventilator. She still in the 100% FiO2 with a PEEP of 5 and a tidal volume of 450. The blood gases showed no much improvement in his oxygenation, yet based on the sdv pilot/navigator/dds operator pulse oximeter analysis, was able to wean her down to 80% FiO2 and in the process of further bringing down FiO2 to maintain a saturation above 92%. Hemodynamically, she is off pressors completely. She is on Lasix drip at 5 mg an hour and she is producing adequate amount of urine output which seems to be improving. Her chest x-ray shows improvement in the volume status. There is development of bilateral pleural effusions. He was in a good location. Creatinine is up to 2.7. Rest of the electrodes are within normal limits with a mild hypernatremia of 146 On 12/05/2016, patient remains on mechanical ventilation, sedated, but according to the nurse who held sedation earlier, patient is arousable, follows simple instructions, hence that is reassuring that the patient did not at least sustained significant anoxic brain injury considering her prolonged cardiac arrest of more than 20 minutes. Patient is on mechanical ventilation, and her vent settings are tidal volume of 450 assist control rate of 24, PEEP of 5, FiO2 of 50%. Chest x-ray continues to show evidence of bilateral pleural effusions and congestive heart failure. Labs were reviewed hemoglobin is 7.3 WBC count is down to 9.7. ABG showed a pO2 of 97 pCO2 of 34 pH of 7.37. Renal profile seems to be worsening and I'm certain the patient must have developed acute tubular necrosis and acute kidney injury BUN is up to 56 creatinine is up to 3.50. Nephrology is addressing her acute renal failure. All her meds were reviewed, patient is now on insulin drip, his also on bronchodilators and IV steroids for her history of severe underlying COPD. On 12/06/2016, patient remains on mechanical ventilation, sedated, noted to become very asynchronous with the ventilator as soon as sedation was placed on hold for 10 minutes. Did not get a chance to address her mental status today, but as of yesterday patient was following simple instructions. I'm still concerned about the possibility of anoxic brain injury. Patient's ventilator settings are about the same have not changed much from above. ABG showed a pO2 of 94 pCO2 of 32 pH of 7.40. Hemoglobin is 6.7, still awaiting for blood to come from [place] for transfusion. Her blood loss is from chronic vaginal bleeding. Hemodynamically, the patient is stabilizing, not requiring any pressors at this point, her urine output seems to be good however her BUN is 67 creatinine of 3.49 apparently the patient developed acute kidney injury from her cardiac arrest and hypotension initially. Chest x-ray showed small right and moderate left pleural effusion atelectasis at the bases, lies in tubes were noted to be in proper position. Ultrasound of the chest showed small left pleural effusion, may or may not require thoracentesis, however at this point I will draw another weight and continue to monitor. No plans for thoracentesis at this point since the effusion is not large enough and will not make a significant improvement even if drain. On 12/07/2016, patient remains on mechanical ventilation, sedated, had lots of issues with hypertension overnight, patient is also bradycardic, patient was given Norvasc, did not improve discontinuation. Hence I recommended today adding Catapres 0.1 mg via nasogastric tube twice a day. Patient could not have her mental status assessed today, apparently was sedation is lower down patient gets extremely agitated. Ventilator settings remained the same, she still on 50% FiO2, pO2 is 90 pCO2 of 38 pH of 7.31. Renal profile remains poor but improving, creatinine is now 3.0 compared to 3.502 days ago. Clearly the patient developed some acute kidney injury from her cardiac arrest and developed acute tubular necrosis, we hope this will improve with time. Urine output is adequate She is making about 40-50 mL per hour. Patient did receive 2 units of packed RBCs yesterday, and her hemoglobin is 9.6 today. Patient is tolerating nutritional support while via nasogastric tube. Patient was reevaluated today on 12/08/2016, remains on mechanical ventilation, she had some intermittent episodes of desaturations last night, patient was adrien bag, suction, but not much was obtained. Finally the patient settled down , and she is now on FiO2 of 50%, PEEP of 5. I adjusted her flow rates, and her I:E ratio is1:2.5. ABG showed a pO2 of 91 pCO2 of 30 pH of 7.37 and this was on 65% FiO2. Electrolytes were reviewed, BUN is 90 creatinine is 3.2 bicarb is 16 ANION gap is 15. CBC is relatively unremarkable. Chest x-ray is basically about the same showing bilateral pleural effusions and by basilar atelectasis/ possible infiltrates. And there is evidence of mild venous congestion. Her last ultrasound of the chest showed small to moderate left pleural effusion, may consider repeat ultrasound and may consider thoracentesis if the patient saturations remain marginal. Otherwise patient is considered relatively high risk for thoracentesis while on mechanical ventilation and considering her body habitus. Patient was reevaluated today on 12/09/2016, remains on mechanical ventilation, has been off propofol for the last hour and a half, and the best response I can get is basically opening her eyes to deep painful stimuli. No other responses were noted. Blood pressure is extremely elevated in spite of multiple medications used to lower the blood pressure. Hence I have recommended a CT of the brain, I also recommended starting the patient on nitroprusside. Ventilator settings are unchanged remains on 50%, however I cut down the PEEP to 5. ABG showed a pO2 of 82 pCO2 of 31 pH of 7.36. Chest x-ray continues to show bilateral pleural effusions left more so than right. CBC showed WBC 6.1 hemoglobin is 10.4. Electrolytes were reviewed the BUN is 99 creatinine is 2.90 , showing slight improvement compared to the last few days. Urine output is acceptable. Rest of the labs were noted to be unremarkable. The main to issues were dealing with right now include her mental status change and her elevated blood pressure. Patient remains on nutritional support, antibiotics, bronchodilators, and I plan to do a CT of the brain today and I also plan to start nitroprusside to lower the blood pressure. Reevaluated today on 12/10/2016, patient remains on mechanical ventilation, propofol was placed on hold, and the best I could get neurologically out of this patient is basically opening eyes. Does not have any other responses, as a matter of fact she was becoming a bit more agitated and asynchronous with mechanical ventilation, hence I had to place back on low-dose propofol, blood pressure seems to be responding better with nitroprusside, but she remains also on many other meds for elevated blood pressure. CT of the brain is showing basically no acute finding. However I believe clinically the patient must have sustained some significant anoxic brain injury. And I believe the elevated blood pressure is mostly central in nature. Labs were reviewed she had a relatively normal CBC hemoglobin is 10.6. ABG showed a pO2 of 71 pCO2 of 30 pH of 7.35, sodium bicarb via nasogastric tube was ordered and added. Electrolytes showed a bicarb of 17 BUN is 116 creatinine is 2.80. Urine output seems to be adequate. Chest x-ray continues to show evidence of bilateral atelectasis and pleural effusions, and possibly some component of infiltrates at the bases. Last ultrasound showed that the pleural effusion was small on the left side, and I did not feel a good perform a safety thoracentesis on the left side. Considering the size is not large enough. Objective - Vital Signs Vital signs: Vital Signs Temp 98.3 F 12/10/16 04:00 Pulse 60 12/10/16 08:15 Resp 11 L 12/10/16 07:00 BP 201/58 12/09/16 08:00 Pulse Ox 94 L 12/10/16 05:00 Intake & Output 12/09/16 12/10/16 12/10/16 18:59 06:59 18:59 Intake Total 4485.851 6190.588 182.852 Output Total 1220 900 70 Balance 302.867 658.588 112.852 Weight 116.5 kg 116.8 kg Intake: IV 950 900 75 0.9 NS 900 900 75 Piperacillin-Tazobactam 3 50 .375 gm In Dextrose/Water 1 50ml.bag @ 12.5 mls/hr IVPB Q12H DUSTIN Rx#: [id number] Intake, IV Titration 90.867 225.588 107.852 Amount Nitroprusside 100 mg In 59.321 225.588 107.852 Dextrose 5% in Water 250 ml @ Titrate IV .Q0M DUSTIN Rx#:[id number] Propofol 500 mg In Empty 31.546 0 Bag 1 bag @ Titrate IV . Q0M DUSTIN Rx#:[id number] Tube Feeding 452 433 Other 30 Output: Urine 1220 900 70 Other: Voiding Method Indwelling Catheter Indwelling Catheter # Bowel Movements 1 1 ABP, PAP, CO, CI - Last Documented Arterial Blood Pressure 136/34 - Exam Physical Exam: Revealed a 66-year-old female, obese, on mechanical ventilation, endotracheal tube is intact.orogastric tube is intact. HEENT:[Neck is supple.] [No neck masses.] [No thyromegaly.] [No JVD.]short obese neck is noted. Chest: [crackles at the bases bilaterally, some rhonchi were also noted. No wheezing.] Cardiac Exam: [Normal S1 and S2, no S3 gallop, no murmur.] Abdomen: [obese,Soft, nontender, no megaly, no rebound, no guarding, normal bowel sounds. Positive periumbilical hernia noted.] Extremities: [No clubbing, 1+ bipedal edema, no cyanosis.] Neurological Exam: Patient opens eyes only to deep painful stimuli, no other responses could be obtained from the patient. - Labs CBC & Chem 7: 12/10/16 06:00 12/10/16 06:00 Labs: Abnormal Lab Results - Last 24 Hours (Table) 12/09/16 12/09/16 12/09/16 Range/Units 11:44 17:15 17:22 Hgb (11.4-16.0) gm/dL Hct (34.0-46.0) % RDW (11.5-15.5) % ABG pCO2 (35-45) mmHg ABG pO2 (83-108) mmHg ABG HCO3 (21-25) mmol/L ABG Total CO2 (19-24) mmol/L Chloride (98-107) mmol/L Carbon Dioxide (22-30) mmol/L BUN (7-17) mg/dL Creatinine (0.52-1.04) mg/dL Glucose (74-99) mg/dL POC Glucose (mg/dL) 248 H 217 H 222 H (75-99) mg/dL Calcium (8.4-10.2) mg/dL Phosphorus (2.5-4.5) mg/dL Magnesium (1.6-2.3) mg/dL 12/10/16 12/10/16 12/10/16 Range/Units 00:05 06:00 06:00 Hgb 10.6 L (11.4-16.0) gm/dL Hct 33.0 L (34.0-46.0) % RDW 17.0 H (11.5-15.5) % ABG pCO2 (35-45) mmHg ABG pO2 (83-108) mmHg ABG HCO3 (21-25) mmol/L ABG Total CO2 (19-24) mmol/L Chloride 115 H (98-107) mmol/L Carbon Dioxide 17 L (22-30) mmol/L BUN 116 H* (7-17) mg/dL Creatinine 2.80 H (0.52-1.04) mg/dL Glucose 235 H (74-99) mg/dL POC Glucose (mg/dL) 249 H (75-99) mg/dL Calcium 8.3 L (8.4-10.2) mg/dL Phosphorus 7.6 H (2.5-4.5) mg/dL Magnesium 2.9 H (1.6-2.3) mg/dL 12/10/16 12/10/16 Range/Units 06:08 07:59 Hgb (11.4-16.0) gm/dL Hct (34.0-46.0) % RDW (11.5-15.5) % ABG pCO2 30 L (35-45) mmHg ABG pO2 71 L (83-108) mmHg ABG HCO3 16 L (21-25) mmol/L ABG Total CO2 17 L (19-24) mmol/L Chloride (98-107) mmol/L Carbon Dioxide (22-30) mmol/L BUN (7-17) mg/dL Creatinine (0.52-1.04) mg/dL Glucose (74-99) mg/dL POC Glucose (mg/dL) 228 H (75-99) mg/dL Calcium (8.4-10.2) mg/dL Phosphorus (2.5-4.5) mg/dL Magnesium (1.6-2.3) mg/dL Microbiology - Last 24 Hours (Table) 12/03/16 07:30 Blood Culture - Final Blood No Growth after 144 hours Assessment and Plan Plan: 1 acute cardio pulmonary arrest. Exact cause is not clear. It's possible that the patient had a combination of COPD and CHF exacerbation as the patient was found to be in acute pulmonary edema at a time of arrival. The patient was down for a total of 20 minutes during which she was given epinephrine and bicarb drip. The patient was in asystole./PEA 2 acute respiratory failure secondary to above, currently intubated on mechanical ventilator 3 acute decompensated heart failure and pulmonary edema, improving, but not resolved. Pleural effusion on the left side is small and safe thoracentesis cannot be performed. 4 acute COPD exacerbation with increased bronchospasm wheezing and elevated airway pressures/resolved 5 acute shock. Rule out cardiogenic shock post cardiac arrest , improved on no pressors upon presentation. 6 chronic renal failure, rule out a component of acute kidney injury on top of chronic renal failure, urine output is improving and the creatinine is on the rise 7 CVA, history of with some residual right-sided weakness 8 possible hypoxic/anoxic encephalopathy post cardiac arrest, patient opens eyes only, no other responses could be obtained are noted, hence may recommend neurological evaluation early next week or tomorrow. Patient may have sustained significant anoxic brain injury considering her downtime was basically prolonged period 9 uterine cancer history of 10 CHF with diastolic dysfunction with a preserved LV function of 55% and secondary pulmonary hypertension 11 coronary artery disease with a recent cardiac catheterization showing patent stents to RCA and left main 12 diabetes mellitus type 2 13 hyperlipidemia 14 obesity BMI of 42 15 fibromyalgia 16 hyperlipidemia 17 hypothyroidism 8 suspected urinary tract infection 19 depression 20 small bilateral pleural effusions, we'll continue to monitor, no need for thoracentesis at this point. Recommendation: Continue present treatment plan including supportive care measures, antibiotics, steroids, bronchodilators, close monitoring of the renal status and renal profile, no plans to do thoracentesis at this point, Patient remains critically ill, blood pressure remains a major issue at this point, hence started the patient on nitroprusside, CT of the brain was also done and nondiagnostic.. Continue to intermittently hold sedation and assess mental status. Comes next week we will address the issue of either terminal wheezing or further aggressive treatment including tracheostomy and PEG tube placement. Overall picture does not look very promising. Critical care time is 35 minutes. Time with Patient: Greater than 30
[2016-12-10 12:15] LABS: Glucose,Whole Blood 312 mg/dL (75-99)
[2016-12-10] MEDS: NIFEdipine 10 MG CAP PO SCH ×2 (13:27→20:19)
[2016-12-10] MEDS: cloNIDine HCL 0.1 MG TAB PO SCH ×2 (16:16→21:56)
--- NOTE | 2016-12-10 16:27 | P.PN ---
Progress Note - Text DATE OF SERVICE: 12/10/2016 PRESENTING COMPLAINT: Shortness of breath, cardiac arrest INTERVAL HISTORY: This patient presented after developing an acute exacerbation of CHF and subsequent cardiac arrest. Sedation lifted for about 24 hours, only response received was eye-opening to name no additional response. Patient did become agitated while off sedation and had to be restarted due to asynchrony with the vent. NIpride drip remains on however remains on many multiple antihypertensives listed below. Hypertension felt to be more of a central problem, CT scan did not reveal any acute process. Breathing comfortably on the vent FiO2 50%, PEEP of 5, rate of 24. No family at the bedside today. Ventilator settings: Assist control/volume control, rate 24, FiO2 50%, PEEP 5. MEDICATIONS: Propofol, insulin drip, Protonix, tube feeding at 34 ml/hr. Catapres 0.2 mg, nitroprusside drip, Norvasc, Coreg, Lasix drip, labetalol, Imdur, Solu-Medrol sodium bicarbonate Heart rhythm: sinus bradycardia rate 40's-50's REVIEW OF SYSTEMS: Patient intubated. CURRENT MEDICATIONS As detailed above PHYSICAL EXAM: VITAL SIGNS: Temperature 98.4, pulse 89, respirations 20, blood pressure 143/47 , oxygen saturation 93% on FiO2 of 50% mechanical ventilation. GENERAL APPEARANCE:Lying in bed, breathing comfortably on the vent. EYES: Pupils equal. Conjunctiva normal. NECK: JVD unable to assess. Mass not palpable. RESPIRATORY: Respiratory effort increased, on mechanical ventilation Lungs increased breath sounds secretions noted , CARDIOVASCULAR: First and second sounds noted. Moderate edema. ABDOMEN: Soft. Distended, Liver and spleen not palpable. No tenderness. No mass palpable. PSYCHIATRY: Unable to assess NEUROLOGICAL: Pupils sluggish secondary to sedation, opens eyes to noxious stimuli. INVESTIGATIONS: Hemoglobin 10.6, platelet count 154, sodium 144, potassium 4.6, chloride 1:15, carbon dioxide 17, BUN 116, creatinine 2.80, phosphorus 7.6, magnesium 2.9. Chest x-ray reveals bilateral infiltrate and pleural effusions Computed tomography scan: No evidence of sulcal effacement tiny remote lacunar infarct right basal ganglia. ASSESSMENT: 1. Acute on chronic congestive heart failure exacerbation from diastolic dysfunction, secondary to coronary artery disease, ejection fraction 55% with a recent cardiac catheterization, stabilized 2. Cardiac arrest in a patient with underlying coronary artery disease. 3. Chronic obstructive pulmonary disease and an ex-smoker. 4. Chronic kidney disease stage III from diabetic nephropathy and hypertensive nephrosclerosis. 5. Chronic menorrhagia pending outpatient surgery. 6. Chronic diverticulosis. 7. 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 8. Malignant hypertension, patient requiring IV nitroprusside. 9. Right arm weakness from old stroke. 10. Diabetes mellitus type 2 chronically on insulin. 11. Obesity, body mass index greater than 40, morbid type. 12. Coronary artery disease with stent to the left anterior descending artery and right coronary artery. 13. Hyperlipidemia. 14. Fibromyalgia. 15. Primary osteoarthritis of multiple joints bilateral 16. Urinary stress incontinence 17. Depression not otherwise specified 18. Acute hypoxic respiratory failure secondary to acute pulmonary edema from underlying coronary artery disease and congestive heart failure, on ventilator support, slow to wean. 19. Recurrent chronic blood loss anemia secondary to menorrhagia. 20. Acute cardiogenic shock from underlying coronary artery disease, slowly improving. 21. Urinary tract infection, secondary to outflow obstruction, organism Klebsiella pneumoniae, present on admission. 22. Acute blood loss anemia, 10.1 hemoglobin , secondary to chronic menorrhagia 1 unit packed red cells given improving 23. Acute renal failure likely secondary to ATN/prerenal, sepsis and shock, slowly improving. 24. Multiple medical problems. 25. Acute respiratory failure secondary to congestive heart failure, coronary artery disease, with ventilator support. 26. Hyperphosphatemia secondary to renal failure, maintained on phosphate binder. PLAN: Continue current medications, and monitor closely renal status, neurologic status, possibility of tracheostomy and feeding tube soon per family decision. Additionally, these interventions to continue treatment or to terminally wean patient will be addressed when family present. YARN FINISHER statement: Patient was seen and examined by nurse practitioner Connie Livingston and all elements of the case discussed with attending is Dr. Aguila
[2016-12-10 17:22] LABS: Glucose,Whole Blood 259 mg/dL (75-99)
--- NOTE | 2016-12-10 18:58 | P.PN ---
Subjective Principal diagnosis: Aspiration pneumonia following cardiopulmonary arrest This is a 66-year-old female who was recently hospitalized November 23 through November 25 at which time she was treated for mildly elevated troponins. Stress test was negative. Echocardiogram revealed EF of 55-60%. She was also treated for acute blood loss anemia with 1 unit of packed RBCs due to her underlying uterine cancer for which she is supposed to have an hysterectomy. Patient was readmitted November 26 through December 01 which time she was treated for acute exacerbation of COPD and acute diastolic heart failure as well as acute non-ST elevated myocardial infarction and underwent a heart catheterization with Dr. Dacosta finding a patent stent in the proximal and mid right coronary artery, patent stent in the main coronary artery, mild disease in the left circumflex, intermediate disease in the proximal LAD with recommendations to maximize medical treatment. According to the records, patient developed shortness of breath with a low pulse ox and her called EMS. Once patient was picked up by EMS she went into cardiopulmonary arrest and CPR was started. Patient was intubated in the emergency center and subsequently admitted to the intensive care unit. Patient did receive IV fluids and levo fed which has been off for 24 hours. Patient was initially on IV push Lasix 1 and then Lasix drip which is also been discontinued. Heparin drip was initially started and that has been discontinued. Her temperature max is been 100.3. White count 23.6 and currently at 6.1. Patient has had a drop in her hemoglobin from 9.3-6.7 and she does continue to have mild vaginal bleeding. Platelet count initially 295 is now 146. Kidney function has worsened with acute kidney injury and acute tubular necrosis with underlying chronic kidney disease stage III for which nephrology has been consulted. Urinalysis was turbulent with blood large, leukoesterase large, nitrate negative, RBCs 56 and WBC greater than 182 with bacteria many. Urine cultures returned back positive for Klebsiella pneumoniae greater than 100,000 colonies. Patient was started on tube feedings yesterday and did start stooling this morning. Her urine output has been running 50-100 mL per hour regarding IV antibiotics, patient has been on Zosyn and Flagy. Is being followed by pulmonary critical care. She's having very little improvement. This concerns to anoxic brain injury. I believe neurology evaluation is in process. The patient remains on 50% FiO2 and PEEP of 5. Objective - Vital Signs Vital signs: Vital Signs Temp 98.2 F 06/17/17 16:00 Pulse 69 12/10/16 18:00 Resp 16 12/10/16 18:00 BP 201/58 12/09/16 08:00 Pulse Ox 96 12/10/16 18:00 Intake & Output 12/09/16 12/10/16 12/10/16 18:59 06:59 18:59 Intake Total 4071.851 4707.588 718.402 Output Total 4768 640 5133 Balance 302.867 658.588 -491.598 Weight 116.5 kg 116.8 kg Intake: IV 950 900 305 0.9 NS 900 900 205 Piperacillin-Tazobactam 3 50 50 .375 gm In Dextrose/Water 1 50ml.bag @ 12.5 mls/hr IVPB Q12H [facility] Rx#: [id number] metroNIDAZOLE-NS PMX 500 50 mg In Saline 1 100ml.bag @ 100 mls/hr IVPB Q8HR [facility]USTIN Rx#:[id number] Intake, IV Titration 90.867 225.588 228.402 Amount Nitroprusside 100 mg In 59.321 225.588 178.402 Dextrose 5% in Water 250 ml @ Titrate IV .Q0M [facility] Rx#:[id number] Propofol 500 mg In Empty 31.546 0 50.000 Bag 1 bag @ Titrate IV . Q0M [facility]USTIN Rx#:[id number] Tube Feeding 452 433 185 Other 30 Output: Urine 7940 049 5876 Other: Voiding Method Indwelling Catheter Indwelling Catheter Indwelling Catheter # Bowel Movements 1 1 1 ABP, PAP, CO, CI - Last Documented Arterial Blood Pressure 150/43 - Exam Gen: This is a morbidly obese 66-year-old female. She is intubated and on mechanical ventilation appears to be comfortable and in no distress. HEENT: Head is atraumatic, normocephalic. Sclerae is anicteric. Oral ET and gastric tube in place. NECK: Supple. No JVD. No lymphadenopathy. No thyromegaly. LUNGS: Diminished at the bases posteriorly, no wheezing. No intercostal retractions. HEART: Regular rate and rhythm. No murmur. ABDOMEN: Morbidly obese. Soft. Bowel sounds are present. No masses. No tenderness. No redness noted under breast, abdominal folds. EXTREMITIES: No pedal edema. Dorsalis pedis weak bilaterally. SCDs in place. NEUROLOGICAL: Patient is intubated and on mechanical ventilation. - Labs CBC & Chem 7: 12/10/16 06:00 12/10/16 06:00 Labs: Abnormal Lab Results - Last 24 Hours (Table) 12/10/16 12/10/16 12/10/16 Range/Units 00:05 06:00 06:00 Hgb 10.6 L (11.4-16.0) gm/dL Hct 33.0 L (34.0-46.0) % RDW 17.0 H (11.5-15.5) % ABG pCO2 (35-45) mmHg ABG pO2 (83-108) mmHg ABG HCO3 (21-25) mmol/L ABG Total CO2 (19-24) mmol/L Chloride 115 H (98-107) mmol/L Carbon Dioxide 17 L (22-30) mmol/L BUN 116 H* (7-17) mg/dL Creatinine 2.80 H (0.52-1.04) mg/dL Glucose 235 H (74-99) mg/dL POC Glucose (mg/dL) 249 H (75-99) mg/dL Calcium 8.3 L (8.4-10.2) mg/dL Phosphorus 7.6 H (2.5-4.5) mg/dL Magnesium 2.9 H (1.6-2.3) mg/dL 12/10/16 12/10/16 12/10/16 Range/Units 06:08 07:59 12:13 Hgb (11.4-16.0) gm/dL Hct (34.0-46.0) % RDW (11.5-15.5) % ABG pCO2 30 L (35-45) mmHg ABG pO2 71 L (83-108) mmHg ABG HCO3 16 L (21-25) mmol/L ABG Total CO2 17 L (19-24) mmol/L Chloride (98-107) mmol/L Carbon Dioxide (22-30) mmol/L BUN (7-17) mg/dL Creatinine (0.52-1.04) mg/dL Glucose (74-99) mg/dL POC Glucose (mg/dL) 228 H 312 H (75-99) mg/dL Calcium (8.4-10.2) mg/dL Phosphorus (2.5-4.5) mg/dL Magnesium (1.6-2.3) mg/dL 12/10/16 Range/Units 17:20 Hgb (11.4-16.0) gm/dL Hct (34.0-46.0) % RDW (11.5-15.5) % ABG pCO2 (35-45) mmHg ABG pO2 (83-108) mmHg ABG HCO3 (21-25) mmol/L ABG Total CO2 (19-24) mmol/L Chloride (98-107) mmol/L Carbon Dioxide (22-30) mmol/L BUN (7-17) mg/dL Creatinine (0.52-1.04) mg/dL Glucose (74-99) mg/dL POC Glucose (mg/dL) 259 H (75-99) mg/dL Calcium (8.4-10.2) mg/dL Phosphorus (2.5-4.5) mg/dL Magnesium (1.6-2.3) mg/dL Laboratory Results WBC 10.1 k/uL (3.8-10.6) 12/10/16 06:00 RBC 3.81 m/uL (3.80-5.40) 12/10/16 06:00 Hgb 10.6 gm/dL (11.4-16.0) L 12/10/16 06:00 Hct 33.0 % (34.0-46.0) L 12/10/16 06:00 MCV 86.8 fL (80.0-100.0) 12/10/16 06:00 MCH 27.7 pg (25.0-35.0) 12/10/16 06:00 MCHC 32.0 g/dL (31.0-37.0) 12/10/16 06:00 RDW 17.0 % (11.5-15.5) H 12/10/16 06:00 Plt Count 154 k/uL (150-450) 12/10/16 06:00 Neutrophils % 88 % 12/09/16 04:45 Lymphocytes % 5 % 12/09/16 04:45 Monocytes % 5 % 12/09/16 04:45 Eosinophils % 0 % 12/09/16 04:45 Basophils % 0 % 12/09/16 04:45 Neutrophils # 5.4 k/uL (1.3-7.7) 12/09/16 04:45 Lymphocytes # 0.3 k/uL (1.0-4.8) L 12/09/16 04:45 Monocytes # 0.3 k/uL (0-1.0) 12/09/16 04:45 Eosinophils # 0.0 k/uL (0-0.7) 12/09/16 04:45 Basophils # 0.0 k/uL (0-0.2) 12/09/16 04:45 Hypochromasia Marked 12/10/16 06:00 Poikilocytosis Moderate 12/10/16 06:00 Anisocytosis Slight 12/10/16 06:00 PT 11.1 sec (9.0-12.0) 12/08/16 04:45 INR 1.1 (<1.1) 12/08/16 04:45 APTT 46.1 sec (22.0-30.0) H 12/05/16 05:05 Sample Site [place] 12/10/16 07:59 ABG pH 7.35 (7.35-7.45) 12/10/16 07:59 ABG pCO2 30 mmHg (35-45) L 12/10/16 07:59 ABG pO2 71 mmHg (83-108) L 12/10/16 07:59 ABG HCO3 16 mmol/L (21-25) L 12/10/16 07:59 ABG Total CO2 17 mmol/L (19-24) L 12/10/16 07:59 ABG O2 Saturation 94.0 % (94-97) 12/10/16 07:59 ABG Base Excess -8.4 mmol/L 12/10/16 07:59 FiO2 50 % 12/10/16 07:59 Sodium 144 mmol/L (137-145) 12/10/16 06:00 Potassium 4.6 mmol/L (3.5-5.1) 12/10/16 06:00 Chloride 115 mmol/L (98-107) H 12/10/16 06:00 Carbon Dioxide 17 mmol/L (22-30) L 12/10/16 06:00 Anion Gap 12 mmol/L 12/10/16 06:00 BUN 116 mg/dL (7-17) H* 12/10/16 06:00 Creatinine 2.80 mg/dL (0.52-1.04) H 12/10/16 06:00 Est GFR (MDRD) Af Amer 21 (>60 ml/min/1.73 sqM) 12/10/16 06:00 Est GFR (MDRD) Non-Af 17 (>60 ml/min/1.73 sqM) 12/10/16 06:00 Glucose 235 mg/dL (74-99) H 12/10/16 06:00 POC Glucose (mg/dL) 259 mg/dL (75-99) H 12/10/16 17:20 POC Glu [place] ID [place] 12/10/16 17:[address] Glu mg/dL 140 mg/dL 12/07/16 04:00 Hemoglobin A1c 6.5 % (4.2-6.1) H 12/07/16 04:00 Plasma Lactic Acid [place] 1.2 mmol/L (0.7-2.0) 12/03/16 12:36 Calcium 8.3 mg/dL (8.4-10.2) L 12/10/16 06:00 Phosphorus 7.6 mg/dL (2.5-4.5) H 12/10/16 06:00 Magnesium 2.9 mg/dL (1.6-2.3) H 12/10/16 06:00 Total Bilirubin 0.2 mg/dL (0.2-1.3) 12/09/16 04:45 AST 8 U/L (14-36) L 12/09/16 04:45 ALT 26 U/L (9-52) 12/09/16 04:45 Alkaline Phosphatase 47 U/L (38-126) 12/09/16 04:45 Total Creatine Kinase 61 U/L (30-135) 12/03/16 07:30 CK-MB (CK-2) 1.2 ng/mL (0.0-2.4) 12/03/16 07:30 CK-MB (CK-2) Rel Index 2.0 12/03/16 07:30 Troponin I 0.142 ng/mL (0.000-0.034) H* 12/03/16 12:36 Total Protein 5.1 g/dL (6.3-8.2) L 12/09/16 04:45 Albumin 2.7 g/dL (3.5-5.0) L 12/09/16 04:45 Urine Color Yellow 12/03/16 08:51 Urine Appearance Turbid (Clear) H 12/03/16 08:51 Urine pH 6.0 (5.0-8.0) 12/03/16 08:51 Ur Specific [place] 1.011 (1.001-1.035) 12/03/16 08:51 Urine Protein 3+ (Negative) H 12/03/16 08:51 Urine Glucose (UA) 3+ (Negative) H 12/03/16 08:51 Urine Ketones Negative (Negative) 12/03/16 08:51 Urine Blood Large (Negative) H 12/03/16 08:51 Urine Nitrite Negative (Negative) 12/03/16 08:51 Urine Bilirubin Negative (Negative) 12/03/16 08:51 Urine Urobilinogen <2.0 mg/dL (<2.0) 12/03/16 08:51 Ur Leukocyte Esterase Large (Negative) H 12/03/16 08:51 Urine RBC 56 /hpf (0-5) H 12/03/16 08:51 Urine WBC >182 /hpf (0-5) H 12/03/16 08:51 Urine Bacteria Many /hpf (None) H 12/03/16 08:51 C. difficile (EIA) Intrp Negative (Negative) 12/06/16 15:32 Blood Type A Positive 12/05/16 18:00 Blood Type Recheck No 12/05/16 18:00 Antibody Screen POSITIVE 12/05/16 18:00 Antibody Identification Anti-K 12/05/16 18:00 Direct Antiglob Test Negative 12/05/16 18:00 Crossmatch See Detail 12/05/16 18:00 Spec Expiration Date 12/08/2016 - 2300 12/05/16 18:00 Microbiology 12/03/16 07:30 Blood Blood Culture - Final No Growth after 144 hours 12/04/16 16:10 Sputum Gram Stain - Final 12/04/16 16:10 Sputum Sputum Culture - Final 12/03/16 08:51 Urine,Catheterized Urine Culture - Final Klebsiella pneumoniae Assessment and Plan (1) Cardiac arrest Status: Acute (2) Aspiration pneumonia Narrative/Plan: 66-year-old female who suffers superobesity had a cardiopulmonary arrest. She had a protracted resuscitation and now remains in intensive care unit intubated sedated and mechanically ventilated. Attempts for withdrawal of her sedation occurred not highly effective. The patient was not responding well except some eye opening did occur. The patient is showing little improvement and there will likely be needs tracheostomy and PEG tube if the current course of therapy is to continue. The family however may consider a Comfort Care option if there is evidence of extensive anoxic brain injury. At this time the metronidazole was discontinued. She is finishing up her course of antibiotic therapy for aspiration pneumonia and her Klebsiella urinary tract infection. The leukocytosis is improved. She does have acute renal failure. Blood sugars been difficult to control and overall has a very poor prognosis. Status: Acute (3) UTI due to Klebsiella species Status: Acute
[2016-12-10] MEDS: INSULIN GLARGINE 100 UNIT/ML 10 ML VIAL SQ SCH (20:16)
[2016-12-10 23:29] LABS: Glucose,Whole Blood 273 mg/dL (75-99)
[2016-12-11] MEDS: methylPREDNISolone SOD SUCCI 125 MG/2 ML VIAL IV SCH ×4 (00:05→18:24)
[2016-12-11] MEDS: INSULIN LISPRO (humaLOG) 300 UNIT/3 ML VIAL SQ SCH ×4 (00:06→18:24)
[2016-12-11] MEDS: PROPOFOL 500 MG in EMPTY BAG 1 BAG IV SCH ×5 (00:40→19:34)
[2016-12-11] MEDS: fentaNYL (PF) 50 MCG/ML 2 ML AMP IV PRN ×4 (01:09→14:42)
[2016-12-11] MEDS: PIPERACILLIN-TAZOBACTAM 3.375 GM in DEXTROSE/WATER 1 50ML.BAG IVPB SCH ×2 (03:46→14:44)
[2016-12-11 05:16] LABS: Anisocytosis Slight; CH 27.4; CHCM 31.5; HCT 31.8 % (34.0-46.0); HDW 4.15; Hypochromasia Marked; MCH 27.4 pg (25.0-35.0); MCHC 31.5 g/dL (31.0-37.0); MCV 86.7 fL (80.0-100.0); Mean Platelet Volume 9.1; Poikilocytosis Moderate; RBC 3.66 m/uL (3.80-5.40); WBC 11.6 k/uL (3.8-10.6)
[2016-12-11 05:42] LABS: Calcium 8.1 mg/dL (8.4-10.2); Magnesium 2.8 mg/dL (1.6-2.3); Phosphorous 7.1 mg/dL (2.5-4.5); Potassium 4.5 mmol/L (3.5-5.1)
[2016-12-11] MEDS: NITROPRUSSIDE 100 MG in DEXTROSE 5% IN WATER 250 ML IV SCH ×6 (05:49→18:39)
[2016-12-11 06:03] LABS: Glucose,Whole Blood 293 mg/dL (75-99)
--- NOTE | 2016-12-11 07:22 | XR ---
EXAMINATION TYPE: XR chest 1V portable DATE OF EXAM: 12/11/2016 COMPARISON: 12/10/2016 HISTORY: Shortness of breath requiring ventilation FINDINGS: There are bilateral pleural effusions with cardiomegaly and bibasilar infiltrate. There is a diffuse interstitial pattern. PICC line noted. IMPRESSION: 1. Stable bilateral infiltrate and pleural effusion. Central venous congestion versus pneumonia.
[2016-12-11] MEDS: cloNIDine HCL 0.1 MG TAB PO SCH ×3 (08:05→21:15)
[2016-12-11] MEDS: SODIUM BICARBONATE TAB 650 MG TAB PO SCH ×3 (08:05→21:10)
[2016-12-11] MEDS: CARVEDILOL 12.5 MG TAB PO SCH ×2 (08:05→16:38)
[2016-12-11] MEDS: PANTOPRAZOLE 40 MG/10 ML VIAL IV SCH (08:05)
[2016-12-11] MEDS: ISOSORBIDE MONONITRATE ER 30 MG TAB.ER.24H PO SCH (08:06)
[2016-12-11] MEDS: CHLORHEXIDINE GLUCONATE 15 ML CUP MUCOUS MEM SCH ×2 (08:06→20:33)
[2016-12-11] MEDS: amLODIPine 10 MG TAB PO SCH (08:06)
[2016-12-11] MEDS: CALCIUM ACETATE 667 MG CAP PO SCH ×3 (08:06→16:39)
[2016-12-11] MEDS: IPRATROPIUM-ALBUTEROL 3 ML NEB INHALATION SCH ×4 (08:12→19:49)
[2016-12-11] MEDS: NIFEdipine 10 MG CAP PO SCH ×3 (09:00→20:34)
[2016-12-11 09:06] LABS: ABG Base Excess -8.1 mmol/L; ABG HCO3 16 mmol/L (21-25); ABG PCO2 30 mmHg (35-45); ABG PH 7.35 (7.35-7.45); ABG PO2 80 mmHg (83-108); ABG TCO2 17 mmol/L (19-24)
--- NOTE | 2016-12-11 11:15 | P.PN ---
Subjective Principal diagnosis: Acute cardiopulmonary arrest and acute respiratory failure This is a 66-year-old female patient who got admitted to the ED this morning with cardiopulmonary arrest. The patient has multiple medical problems and comorbidities. The patient has advanced COPD and she is an ex-smoker. She also has coronary artery disease with previous coronary interventions and stenting and most recently the patient had a cardiac catheterization that was done on 11/24/2016 and based on the cath, the patient had a patent stent to left main and RCA and there was no significant occlusion or anatomic obstruction. The patient's most recent echocardiogram also from November 2016 showed a preserved LV function with an ejection fraction of 50-55%. She suffers from chronic renal failure. Her baseline crit is around 1.58. She is morbidly obese. She has also various other comorbidities including chronic hypoxic arrest 30 failure, chronic diverticulosis, chronic gastritis, hypertension, previous history of stroke with right-sided weakness, hyperlipidemia, fibromyalgia and osteoarthritis. Her performance and functional status is been essentially very poor. Based on the reported history, the patient woke up this morning with significant shortness of breath. Her pulse ox was found to by in the low 80s by the . Note that the patient has home O2. Once the patient got loaded on the stretcher, the patient was found to be cardiac pulmonary arrest. At that point CPR was initiated. The patient was also bag and non-intubated in the field. The patient was on for approximately 20 minutes. During this time the patient received 5 rounds of epinephrine, 2 rounds of bicarb and ultimately on 7:19 AM, the patient's cardiac rhythm went back to sinus. In the emergency department the patient was intubated and placed on a mechanical ventilator. The patient was given a total of 2 L of IV fluids and subsequently she was found to be in acute pulmonary edema. CAT scan of the brain was done and was negative. Chest x-ray showed breath and pulmonary infiltrates typical of an underlying pulmonary edema. Currently the patient is a triple-lumen catheter in the right femoral vein. The patient is been resuscitated with IV fluids and pressors and currently she is on norepinephrine infusion running at 25 mics. She is also sedated on propofol at 10 mics. She is on a mechanical ventilator on assist control mode at the rate of 14, tidal volume of 450, FiO2 of 100% and a PEEP of 5. The blood gases showed a pH of 7.14 with a pCO2 of 72 and pO2 of 93. Peak air pressure quite elevated in the low 40s with a lower static airway pressure. The patient's lactic acid level is at 7.8. She is oliguric/anuric with minimal amount of urine output collected post Crenshaw catheter insertion. Note that she was given a dose of Lasix 40 push and the emergency department without any much success in terms of urine output. Her blood sugars are poorly controlled. Most recent blood sugar is above 300 and she'll be also started an insulin drip. On 12/04/2016, I'm seeing this patient in follow-up following her cardiac pulmonary arrest. Please refer to the details mentioned above in regards to her presentation. The patient's downtime was estimated to be around 20 minutes. I was able to given a sedation holiday this morning and the patient woke up nicely and she was able to follow simple commands. This was very reassuring and encouraging. She was not ready for any further weaning and based on that I put her back on sedation with Diprivan. She is still on a mechanical ventilator. She still in the 100% FiO2 with a PEEP of 5 and a tidal volume of 450. The blood gases showed no much improvement in his oxygenation, yet based on the lamp stack developer pulse oximeter analysis, was able to wean her down to 80% FiO2 and in the process of further bringing down FiO2 to maintain a saturation above 92%. Hemodynamically, she is off pressors completely. She is on Lasix drip at 5 mg an hour and she is producing adequate amount of urine output which seems to be improving. Her chest x-ray shows improvement in the volume status. There is development of bilateral pleural effusions. He was in a good location. Creatinine is up to 2.7. Rest of the electrodes are within normal limits with a mild hypernatremia of 146 On 12/05/2016, patient remains on mechanical ventilation, sedated, but according to the nurse who held sedation earlier, patient is arousable, follows simple instructions, hence that is reassuring that the patient did not at least sustained significant anoxic brain injury considering her prolonged cardiac arrest of more than 20 minutes. Patient is on mechanical ventilation, and her vent settings are tidal volume of 450 assist control rate of 24, PEEP of 5, FiO2 of 50%. Chest x-ray continues to show evidence of bilateral pleural effusions and congestive heart failure. Labs were reviewed hemoglobin is 7.3 WBC count is down to 9.7. ABG showed a pO2 of 97 pCO2 of 34 pH of 7.37. Renal profile seems to be worsening and I'm certain the patient must have developed acute tubular necrosis and acute kidney injury BUN is up to 56 creatinine is up to 3.50. Nephrology is addressing her acute renal failure. All her meds were reviewed, patient is now on insulin drip, his also on bronchodilators and IV steroids for her history of severe underlying COPD. On 12/06/2016, patient remains on mechanical ventilation, sedated, noted to become very asynchronous with the ventilator as soon as sedation was placed on hold for 10 minutes. Did not get a chance to address her mental status today, but as of yesterday patient was following simple instructions. I'm still concerned about the possibility of anoxic brain injury. Patient's ventilator settings are about the same have not changed much from above. ABG showed a pO2 of 94 pCO2 of 32 pH of 7.40. Hemoglobin is 6.7, still awaiting for blood to come from [facility] for transfusion. Her blood loss is from chronic vaginal bleeding. Hemodynamically, the patient is stabilizing, not requiring any pressors at this point, her urine output seems to be good however her BUN is 67 creatinine of 3.49 apparently the patient developed acute kidney injury from her cardiac arrest and hypotension initially. Chest x-ray showed small right and moderate left pleural effusion atelectasis at the bases, lies in tubes were noted to be in proper position. Ultrasound of the chest showed small left pleural effusion, may or may not require thoracentesis, however at this point I will draw another weight and continue to monitor. No plans for thoracentesis at this point since the effusion is not large enough and will not make a significant improvement even if drain. On 12/07/2016, patient remains on mechanical ventilation, sedated, had lots of issues with hypertension overnight, patient is also bradycardic, patient was given Norvasc, did not improve discontinuation. Hence I recommended today adding Catapres 0.1 mg via nasogastric tube twice a day. Patient could not have her mental status assessed today, apparently was sedation is lower down patient gets extremely agitated. Ventilator settings remained the same, she still on 50% FiO2, pO2 is 90 pCO2 of 38 pH of 7.31. Renal profile remains poor but improving, creatinine is now 3.0 compared to 3.502 days ago. Clearly the patient developed some acute kidney injury from her cardiac arrest and developed acute tubular necrosis, we hope this will improve with time. Urine output is adequate She is making about 40-50 mL per hour. Patient did receive 2 units of packed RBCs yesterday, and her hemoglobin is 9.6 today. Patient is tolerating nutritional support while via nasogastric tube. Patient was reevaluated today on 12/08/2016, remains on mechanical ventilation, she had some intermittent episodes of desaturations last night, patient was adrien bag, suction, but not much was obtained. Finally the patient settled down , and she is now on FiO2 of 50%, PEEP of 5. I adjusted her flow rates, and her I:E ratio is1:2.5. ABG showed a pO2 of 91 pCO2 of 30 pH of 7.37 and this was on 65% FiO2. Electrolytes were reviewed, BUN is 90 creatinine is 3.2 bicarb is 16 ANION gap is 15. CBC is relatively unremarkable. Chest x-ray is basically about the same showing bilateral pleural effusions and by basilar atelectasis/ possible infiltrates. And there is evidence of mild venous congestion. Her last ultrasound of the chest showed small to moderate left pleural effusion, may consider repeat ultrasound and may consider thoracentesis if the patient saturations remain marginal. Otherwise patient is considered relatively high risk for thoracentesis while on mechanical ventilation and considering her body habitus. Patient was reevaluated today on 12/09/2016, remains on mechanical ventilation, has been off propofol for the last hour and a half, and the best response I can get is basically opening her eyes to deep painful stimuli. No other responses were noted. Blood pressure is extremely elevated in spite of multiple medications used to lower the blood pressure. Hence I have recommended a CT of the brain, I also recommended starting the patient on nitroprusside. Ventilator settings are unchanged remains on 50%, however I cut down the PEEP to 5. ABG showed a pO2 of 82 pCO2 of 31 pH of 7.36. Chest x-ray continues to show bilateral pleural effusions left more so than right. CBC showed WBC 6.1 hemoglobin is 10.4. Electrolytes were reviewed the BUN is 99 creatinine is 2.90 , showing slight improvement compared to the last few days. Urine output is acceptable. Rest of the labs were noted to be unremarkable. The main to issues were dealing with right now include her mental status change and her elevated blood pressure. Patient remains on nutritional support, antibiotics, bronchodilators, and I plan to do a CT of the brain today and I also plan to start nitroprusside to lower the blood pressure. Reevaluated today on 12/10/2016, patient remains on mechanical ventilation, propofol was placed on hold, and the best I could get neurologically out of this patient is basically opening eyes. Does not have any other responses, as a matter of fact she was becoming a bit more agitated and asynchronous with mechanical ventilation, hence I had to place back on low-dose propofol, blood pressure seems to be responding better with nitroprusside, but she remains also on many other meds for elevated blood pressure. CT of the brain is showing basically no acute finding. However I believe clinically the patient must have sustained some significant anoxic brain injury. And I believe the elevated blood pressure is mostly central in nature. Labs were reviewed she had a relatively normal CBC hemoglobin is 10.6. ABG showed a pO2 of 71 pCO2 of 30 pH of 7.35, sodium bicarb via nasogastric tube was ordered and added. Electrolytes showed a bicarb of 17 BUN is 116 creatinine is 2.80. Urine output seems to be adequate. Chest x-ray continues to show evidence of bilateral atelectasis and pleural effusions, and possibly some component of infiltrates at the bases. Last ultrasound showed that the pleural effusion was small on the left side, and I did not feel a good perform a safety thoracentesis on the left side. Considering the size is not large enough. Reevaluated today on 12/11/2016, remains on mechanical ventilation, I was able to cut down the propofol briefly to a lower dose, patient was opening eyes, squeezing hand, and wiggling the toes of the left foot. Nothing else could be done by the patient. As the patient was getting more agitated and blood pressure was getting significantly elevated, I had to place her back on propofol. Patient remains on the same ventilator settings. Chest x-ray is basically about the same. Patient remains on Lasix drip at 5 mg per hour, and she had a negative balance of over 1.5 L over the last 24 hours. Patient is not requiring any hemodynamic support, as a matter of fact the blood pressure is significantly elevated in spite of multiple medications, and I had to use nitroprusside. Thiocyanate level was ordered today. Patient does have history of renal failure, and she is at high risk of developing thiocyanate toxicity. If the level is high may stop nitroprusside altogether. In the meantime the patient remains on Coreg, Norvasc, Catapres, and she has adverse reactions to hydralazine and to lisinopril. ABG today showed a pO2 of 80 pCO2 of 30 pH of 7.35 and this is on a 50% FiO2. CBC is relatively unremarkable. Basic metabolic profile is relatively unremarkable except for BUN of 125 creatinine of 2.70. Bicarb is 17. Patient was receiving bicarb via nasogastric tube. Chest x-ray continues to show stable bilateral pleural effusions and atelectasis possible infiltrates. Objective - Vital Signs Vital signs: Vital Signs Temp 98.2 F 12/10/16 20:00 Pulse 60 12/11/16 08:30 Resp 12 12/11/16 07:00 BP 201/58 12/09/16 08:00 Pulse Ox 96 12/11/16 07:00 Intake & Output 12/10/16 12/11/16 12/11/16 18:59 06:59 18:59 Intake Total 718.402 547.166 94 Output Total 1210 1320 225 Balance -491.598 -772.834 -131 Weight 115.5 kg Intake: IV 305 120 20 0.9 NS 205 120 20 Piperacillin-Tazobactam 3 50 .375 gm In Dextrose/Water 1 50ml.bag @ 12.5 mls/hr IVPB Q12H [facility] Rx#: [id number] metroNIDAZOLE-NS PMX 500 50 mg In Saline 1 100ml.bag @ 100 mls/hr IVPB Q8HR [facility] Rx#:[id number] Intake, IV Titration 228.402 168.166 Amount Nitroprusside 100 mg In 178.402 69.777 Dextrose 5% in Water 250 ml @ Titrate IV .Q0M [facility] Rx#:[id number] Propofol 500 mg In Empty 50.000 98.389 Bag 1 bag @ Titrate IV . Q0M [facility] Rx#:[id number] Tube Feeding 185 259 74 Output: Urine 1210 1320 225 Other: Voiding Method Indwelling Catheter Indwelling Catheter # Bowel Movements 1 ABP, PAP, CO, CI - Last Documented Arterial Blood Pressure 154/45 - Exam Physical Exam: Revealed a 66-year-old female, obese, on mechanical ventilation, endotracheal tube is intact.orogastric tube is intact. HEENT:[Neck is supple.] [No neck masses.] [No thyromegaly.] [No JVD.]short obese neck is noted. Chest: [crackles at the bases bilaterally, some rhonchi were also noted. No wheezing.] Cardiac Exam: [Normal S1 and S2, no S3 gallop, no murmur.] Abdomen: [obese,Soft, nontender, no megaly, no rebound, no guarding, normal bowel sounds. Positive periumbilical hernia noted.] Extremities: [No clubbing, negative edema, no cyanosis.] Neurological Exam: Patient opens eyes only to deep painful stimuli, wiggles toes of left foot, and squeezes left hand. - Labs CBC & Chem 7: 12/11/16 05:05 12/11/16 05:05 Labs: Abnormal Lab Results - Last 24 Hours (Table) 12/10/16 12/10/16 12/10/16 Range/Units 12:13 17:20 23:26 WBC (3.8-10.6) k/uL RBC (3.80-5.40) m/uL Hgb (11.4-16.0) gm/dL Hct (34.0-46.0) % RDW (11.5-15.5) % Plt Count (150-450) k/uL ABG pCO2 (35-45) mmHg ABG pO2 (83-108) mmHg ABG HCO3 (21-25) mmol/L ABG Total CO2 (19-24) mmol/L Chloride (98-107) mmol/L Carbon Dioxide (22-30) mmol/L BUN (7-17) mg/dL Creatinine (0.52-1.04) mg/dL Glucose (74-99) mg/dL POC Glucose (mg/dL) 312 H 259 H 273 H (75-99) mg/dL Calcium (8.4-10.2) mg/dL Phosphorus (2.5-4.5) mg/dL Magnesium (1.6-2.3) mg/dL 12/11/16 12/11/16 12/11/16 Range/Units 05:05 05:05 06:01 WBC 11.6 H (3.8-10.6) k/uL RBC 3.66 L (3.80-5.40) m/uL Hgb 10.0 L (11.4-16.0) gm/dL Hct 31.8 L (34.0-46.0) % RDW 17.0 H (11.5-15.5) % Plt Count 140 L (150-450) k/uL ABG pCO2 (35-45) mmHg ABG pO2 (83-108) mmHg ABG HCO3 (21-25) mmol/L ABG Total CO2 (19-24) mmol/L Chloride 116 H (98-107) mmol/L Carbon Dioxide 17 L (22-30) mmol/L BUN 125 H* (7-17) mg/dL Creatinine 2.70 H (0.52-1.04) mg/dL Glucose 245 H (74-99) mg/dL POC Glucose (mg/dL) 293 H (75-99) mg/dL Calcium 8.1 L (8.4-10.2) mg/dL Phosphorus 7.1 H (2.5-4.5) mg/dL Magnesium 2.8 H (1.6-2.3) mg/dL 12/11/16 Range/Units 07:45 WBC (3.8-10.6) k/uL RBC (3.80-5.40) m/uL Hgb (11.4-16.0) gm/dL Hct (34.0-46.0) % RDW (11.5-15.5) % Plt Count (150-450) k/uL ABG pCO2 30 L (35-45) mmHg ABG pO2 80 L (83-108) mmHg ABG HCO3 16 L (21-25) mmol/L ABG Total CO2 17 L (19-24) mmol/L Chloride (98-107) mmol/L Carbon Dioxide (22-30) mmol/L BUN (7-17) mg/dL Creatinine (0.52-1.04) mg/dL Glucose (74-99) mg/dL POC Glucose (mg/dL) (75-99) mg/dL Calcium (8.4-10.2) mg/dL Phosphorus (2.5-4.5) mg/dL Magnesium (1.6-2.3) mg/dL Assessment and Plan Plan: 1 acute cardio pulmonary arrest. Exact cause is not clear. It's possible that the patient had a combination of COPD and CHF exacerbation as the patient was found to be in acute pulmonary edema at a time of arrival. The patient was down for a total of 20 minutes during which she was given epinephrine and bicarb drip. The patient was in asystole./PEA 2 acute respiratory failure secondary to above, currently intubated on mechanical ventilator 3 acute decompensated heart failure and pulmonary edema, improving, but not resolved. Pleural effusion on the left side is small and safe thoracentesis cannot be performed. 4 acute COPD exacerbation with increased bronchospasm wheezing and elevated airway pressures/resolved 5 acute shock. Rule out cardiogenic shock post cardiac arrest , improved on no pressors upon presentation. 6 chronic renal failure, rule out a component of acute kidney injury on top of chronic renal failure, urine output is improving and the creatinine is on the rise 7 CVA, history of with some residual right-sided weakness 8 possible hypoxic/anoxic encephalopathy post cardiac arrest, patient opens eyes upon stimulation or verbal stimuli, she also squeezes left hand and wiggles left toes. 9 uterine cancer history of 10 CHF with diastolic dysfunction with a preserved LV function of 55% and secondary pulmonary hypertension 11 coronary artery disease with a recent cardiac catheterization showing patent stents to RCA and left main 12 diabetes mellitus type 2 13 hyperlipidemia 14 obesity BMI of 42 15 fibromyalgia 16 hyperlipidemia 17 hypothyroidism 8 suspected urinary tract infection 19 depression 20 small bilateral pleural effusions, we'll continue to monitor, no need for thoracentesis at this point. Recommendation: Continue present treatment plan including supportive care measures, antibiotics, steroids, bronchodilators, close monitoring of the renal status and renal profile, no plans to do thoracentesis at this point, Patient remains critically ill, blood pressure remains a major issue at this point, hence started the patient on nitroprusside, CT of the brain was also done and nondiagnostic.. Continue to intermittently hold sedation and assess mental status. Today I ordered DISIDA 8 level because the patient has been on nitroprusside for the last 2 days, of also recommended eventual discussion with the family regarding long-term prognosis and whether we proceed with tracheostomy and PEG tube placement and eventually ECF placement, or we'll go to comfort care measures. That will hopefully be addressed next week. Critical care time is 35 minutes. Time with Patient: Greater than 30
--- NOTE | 2016-12-11 11:50 | PN ---
DATE OF SERVICE: 12/10/2016 ATTENDING NOTE: This patient was seen and examined by me earlier today. I reviewed the note of my nurse practitioner, Ms. Livingston. Discussed and reviewed additional findings below. This is a patient admitted with acute congestive heart failure exacerbation. Cardiac arrest and remains on the ventilator. Remains on Nipride drip for very high blood pressures. Was cut back on Lasix drip making urine. and the daughter are at bedside. On examination, remains on the ventilator. Decreased breath sounds, only some response. ASSESSMENT: 1. Acute on chronic congestive heart failure exacerbation of diastolic dysfunction; ejection fraction 55%, worsening. 2. Acute renal failure, acute tubular necrosis, multifactorial, slow to respond. 3. Acute hypoxic respiratory failure on ventilator support. PLAN: Prognosis remains guarded. Talked to the daughter and and they understand. They really do not want to proceed with a PEG tube or tracheostomy tube. Patient's other daughter is coming back tomorrow night. They will decide about the same.
[2016-12-11 12:33] LABS: Glucose,Whole Blood 228 mg/dL (75-99)
--- NOTE | 2016-12-11 15:12 | PN ---
Patient is seen for follow-up for acute kidney injury. She remains volume overloaded. The patient's renal function has been stable. She was started on Lasix drip yesterday. She is in negative balance of about 2000 mL for 24 hours. Patient has been maintained on Nipride drip for uncontrolled hypertension. The drip was decreased after adjustment of medications yesterday as well as initiation of aggressive diuresis. We will try to wean off the Nipride drip today and I have discussed with the family that if she remains significantly volume overloaded, we may need to start dialysis. At this time, however, there has been good response to the Lasix drip and we will continue with that for now and increase it to 10 mg per hour. On examination, the patient is on the vent. She is sedated. Blood pressure 139/41, heart rate 60 per minute. She is afebrile. Examination of the heart: S1 and S2. Examination of the lungs: Bilateral breath sounds are heard. Abdomen is soft, distended. Examination of lower extremities shows edema 2+ bilaterally. TRAILER MECHANIC exam cannot be performed; however, patient was trying to follow simple commands when her sedation was decreased. Labs show sodium of 143, potassium 4.5, BUN 125, serum creatinine 2.7. Hemoglobin 10.0 g/dL. ASSESSMENT: 1. Acute kidney injury, acute tubular necrosis from hypotension, hypoperfusion, cardiac arrest, currently nonoliguric with good urine output. Continue with Lasix drip for now. The BUN is disproportionately elevated secondary to steroids. We will need to consider dialysis if she continues to remain hypertensive and volume overload. 2. Vent-dependent respiratory failure post cardiac arrest. 3. Severe volume overload. Increase Lasix drip to 10 mg and hour. 4. Uncontrolled hypertension. Nipride drip is lower than yesterday. We will try to wean it off. She is maintained on calcium channel blockers in the form of Procardia. She is on Coreg and clonidine. Hopefully with increased diuresis her blood pressure will improve.
--- NOTE | 2016-12-11 16:10 | P.PN ---
Subjective Principal diagnosis: Aspiration pneumonia following cardiopulmonary arrest This is a 66-year-old female who was recently hospitalized November 23 through November 25 at which time she was treated for mildly elevated troponins. Stress test was negative. Echocardiogram revealed EF of 55-60%. She was also treated for acute blood loss anemia with 1 unit of packed RBCs due to her underlying uterine cancer for which she is supposed to have an hysterectomy. Patient was readmitted November 26 through December 01 which time she was treated for acute exacerbation of COPD and acute diastolic heart failure as well as acute non-ST elevated myocardial infarction and underwent a heart catheterization with Dr. Dacosta finding a patent stent in the proximal and mid right coronary artery, patent stent in the main coronary artery, mild disease in the left circumflex, intermediate disease in the proximal LAD with recommendations to maximize medical treatment. According to the records, patient developed shortness of breath with a low pulse ox and her called EMS. Once patient was picked up by EMS she went into cardiopulmonary arrest and CPR was started. Patient was intubated in the emergency center and subsequently admitted to the intensive care unit. Patient did receive IV fluids and levo fed which has been off for 24 hours. Patient was initially on IV push Lasix 1 and then Lasix drip which is also been discontinued. Heparin drip was initially started and that has been discontinued. Her temperature max is been 100.3. White count 23.6 and currently at 6.1. Patient has had a drop in her hemoglobin from 9.3-6.7 and she does continue to have mild vaginal bleeding. Platelet count initially 295 is now 146. Kidney function has worsened with acute kidney injury and acute tubular necrosis with underlying chronic kidney disease stage III for which nephrology has been consulted. Urinalysis was turbulent with blood large, leukoesterase large, nitrate negative, RBCs 56 and WBC greater than 182 with bacteria many. Urine cultures returned back positive for Klebsiella pneumoniae greater than 100,000 colonies. Patient was started on tube feedings yesterday and did start stooling this morning. Her urine output has been running 50-100 mL per hour regarding IV antibiotics, patient has been on Zosyn and Flagy. Is being followed by pulmonary critical care. She's having little improvement. Nursing staff relates some improvement of her reactivity to the environment. Apparently followed some simple commands earlier. Is now sedated again. . I believe neurology evaluation is in process. The patient remains on 50% FiO2 and PEEP of 5. Objective - Vital Signs Vital signs: Vital Signs Temp 98.7 F 12/11/16 16:00 Pulse 60 12/11/16 16:01 Resp 24 12/11/16 16:00 BP 201/61 12/11/16 11:00 Pulse Ox 97 12/11/16 16:00 Intake & Output 12/10/16 12/11/16 12/11/16 18:59 06:59 18:59 Intake Total 718.402 597.166 684.583 Output Total 1210 1320 1050 Balance -491.598 -722.834 -365.417 Weight 115.5 kg Intake: IV 305 120 100 0.9 NS 205 120 100 Piperacillin-Tazobactam 3 50 .375 gm In Dextrose/Water 1 50ml.bag @ 12.5 mls/hr IVPB Q12H [facility] Rx#: [id number] metroNIDAZOLE-NS PMX 500 50 mg In Saline 1 100ml.bag @ 100 mls/hr IVPB Q8HR [facility] Rx#:[id number] Intake, IV Titration 228.402 218.166 221.583 Amount Nitroprusside 100 mg In 178.402 69.777 171.583 Dextrose 5% in Water 250 ml @ Titrate IV .Q0M [facility] Rx#:[id number] Propofol 500 mg In Empty 50.000 148.389 50 Bag 1 bag @ Titrate IV . Q0M D[facility] Rx#:[id number] Tube Feeding 185 259 333 Other 30 Output: Urine 1210 1320 1050 Other: Voiding Method Indwelling Catheter Indwelling Catheter Indwelling Catheter # Bowel Movements 1 ABP, PAP, CO, CI - Last Documented Arterial Blood Pressure 122/39 - Exam Gen: This is a morbidly obese 66-year-old female. She is intubated and on mechanical ventilation appears to be comfortable and in no distress. HEENT: Head is atraumatic, normocephalic. Sclerae is anicteric. Oral ET and gastric tube in place. NECK: Supple. No JVD. No lymphadenopathy. No thyromegaly. LUNGS: Diminished at the bases posteriorly, no wheezing. No intercostal retractions. HEART: Regular rate and rhythm. No murmur. ABDOMEN: Morbidly obese. Soft. Bowel sounds are present. No masses. No tenderness. No redness noted under breast, abdominal folds. EXTREMITIES: No pedal edema. Dorsalis pedis weak bilaterally. SCDs in place. NEUROLOGICAL: Patient is intubated and on mechanical ventilation. Sedated at this time. - Labs CBC & Chem 7: 12/11/16 05:05 12/11/16 05:05 Labs: Abnormal Lab Results - Last 24 Hours (Table) 12/10/16 12/10/16 12/11/16 Range/Units 17:20 23:26 05:05 WBC (3.8-10.6) k/uL RBC (3.80-5.40) m/uL Hgb (11.4-16.0) gm/dL Hct (34.0-46.0) % RDW (11.5-15.5) % Plt Count (150-450) k/uL ABG pCO2 (35-45) mmHg ABG pO2 (83-108) mmHg ABG HCO3 (21-25) mmol/L ABG Total CO2 (19-24) mmol/L Chloride 116 H (98-107) mmol/L Carbon Dioxide 17 L (22-30) mmol/L BUN 125 H* (7-17) mg/dL Creatinine 2.70 H (0.52-1.04) mg/dL Glucose 245 H (74-99) mg/dL POC Glucose (mg/dL) 259 H 273 H (75-99) mg/dL Calcium 8.1 L (8.4-10.2) mg/dL Phosphorus 7.1 H (2.5-4.5) mg/dL Magnesium 2.8 H (1.6-2.3) mg/dL 12/11/16 12/11/16 12/11/16 Range/Units 05:05 06:01 07:45 WBC 11.6 H (3.8-10.6) k/uL RBC 3.66 L (3.80-5.40) m/uL Hgb 10.0 L (11.4-16.0) gm/dL Hct 31.8 L (34.0-46.0) % RDW 17.0 H (11.5-15.5) % Plt Count 140 L (150-450) k/uL ABG pCO2 30 L (35-45) mmHg ABG pO2 80 L (83-108) mmHg ABG HCO3 16 L (21-25) mmol/L ABG Total CO2 17 L (19-24) mmol/L Chloride (98-107) mmol/L Carbon Dioxide (22-30) mmol/L BUN (7-17) mg/dL Creatinine (0.52-1.04) mg/dL Glucose (74-99) mg/dL POC Glucose (mg/dL) 293 H (75-99) mg/dL Calcium (8.4-10.2) mg/dL Phosphorus (2.5-4.5) mg/dL Magnesium (1.6-2.3) mg/dL 12/11/16 Range/Units 12:30 WBC (3.8-10.6) k/uL RBC (3.80-5.40) m/uL Hgb (11.4-16.0) gm/dL Hct (34.0-46.0) % RDW (11.5-15.5) % Plt Count (150-450) k/uL ABG pCO2 (35-45) mmHg ABG pO2 (83-108) mmHg ABG HCO3 (21-25) mmol/L ABG Total CO2 (19-24) mmol/L Chloride (98-107) mmol/L Carbon Dioxide (22-30) mmol/L BUN (7-17) mg/dL Creatinine (0.52-1.04) mg/dL Glucose (74-99) mg/dL POC Glucose (mg/dL) 228 H (75-99) mg/dL Calcium (8.4-10.2) mg/dL Phosphorus (2.5-4.5) mg/dL Magnesium (1.6-2.3) mg/dL Laboratory Results WBC 11.6 k/uL (3.8-10.6) H 12/11/16 05:05 RBC 3.66 m/uL (3.80-5.40) L 12/11/16 05:05 Hgb 10.0 gm/dL (11.4-16.0) L 12/11/16 05:05 Hct 31.8 % (34.0-46.0) L 12/11/16 05:05 MCV 86.7 fL (80.0-100.0) 12/11/16 05:05 MCH 27.4 pg (25.0-35.0) 12/11/16 05:05 MCHC 31.5 g/dL (31.0-37.0) 12/11/16 05:05 RDW 17.0 % (11.5-15.5) H 12/11/16 05:05 Plt Count 140 k/uL (150-450) L 12/11/16 05:05 Neutrophils % 88 % 12/09/16 04:45 Lymphocytes % 5 % 12/09/16 04:45 Monocytes % 5 % 12/09/16 04:45 Eosinophils % 0 % 12/09/16 04:45 Basophils % 0 % 12/09/16 04:45 Neutrophils # 5.4 k/uL (1.3-7.7) 12/09/16 04:45 Lymphocytes # 0.3 k/uL (1.0-4.8) L 12/09/16 04:45 Monocytes # 0.3 k/uL (0-1.0) 12/09/16 04:45 Eosinophils # 0.0 k/uL (0-0.7) 12/09/16 04:45 Basophils # 0.0 k/uL (0-0.2) 12/09/16 04:45 Hypochromasia Marked 12/11/16 05:05 Poikilocytosis Moderate 12/11/16 05:05 Anisocytosis Slight 12/11/16 05:05 PT 11.1 sec (9.0-12.0) 12/08/16 04:45 INR 1.1 (<1.1) 12/08/16 04:45 APTT 46.1 sec (22.0-30.0) H 12/05/16 05:05 Sample Site [place] 12/11/16 07:45 ABG pH 7.35 (7.35-7.45) 12/11/16 07:45 ABG pCO2 30 mmHg (35-45) L 12/11/16 07:45 ABG pO2 80 mmHg (83-108) L 12/11/16 07:45 ABG HCO3 16 mmol/L (21-25) L 12/11/16 07:45 ABG Total CO2 17 mmol/L (19-24) L 12/11/16 07:45 ABG O2 Saturation 96.0 % (94-97) 12/11/16 07:45 ABG Base Excess -8.1 mmol/L 12/11/16 07:45 FiO2 50 % 12/11/16 07:45 Sodium 143 mmol/L (137-145) 12/11/16 05:05 Potassium 4.5 mmol/L (3.5-5.1) 12/11/16 05:05 Chloride 116 mmol/L (98-107) H 12/11/16 05:05 Carbon Dioxide 17 mmol/L (22-30) L 12/11/16 05:05 Anion Gap 10 mmol/L 12/11/16 05:05 BUN 125 mg/dL (7-17) H* 12/11/16 05:05 Creatinine 2.70 mg/dL (0.52-1.04) H 12/11/16 05:05 Est GFR (MDRD) Af Amer 21 (>60 ml/min/1.73 sqM) 12/11/16 05:05 Est GFR (MDRD) Non-Af 18 (>60 ml/min/1.73 sqM) 12/11/16 05:05 Glucose 245 mg/dL (74-99) H 12/11/16 05:05 POC Glucose (mg/dL) 228 mg/dL (75-99) H 12/11/16 12:30 POC Glu [employer] ID Ronaldo Simon 12/11/16 12:[address] Glu mg/dL 140 mg/dL 12/07/16 04:00 Hemoglobin A1c 6.5 % (4.2-6.1) H 12/07/16 04:00 Plasma Lactic Acid [place] 1.2 mmol/L (0.7-2.0) 12/03/16 12:36 Calcium 8.1 mg/dL (8.4-10.2) L 12/11/16 05:05 Phosphorus 7.1 mg/dL (2.5-4.5) H 12/11/16 05:05 Magnesium 2.8 mg/dL (1.6-2.3) H 12/11/16 05:05 Total Bilirubin 0.2 mg/dL (0.2-1.3) 12/09/16 04:45 AST 8 U/L (14-36) L 12/09/16 04:45 ALT 26 U/L (9-52) 12/09/16 04:45 Alkaline Phosphatase 47 U/L (38-126) 12/09/16 04:45 Total Creatine Kinase 61 U/L (30-135) 12/03/16 07:30 CK-MB (CK-2) 1.2 ng/mL (0.0-2.4) 12/03/16 07:30 CK-MB (CK-2) Rel Index 2.0 12/03/16 07:30 Troponin I 0.142 ng/mL (0.000-0.034) H* 12/03/16 12:36 Total Protein 5.1 g/dL (6.3-8.2) L 12/09/16 04:45 Albumin 2.7 g/dL (3.5-5.0) L 12/09/16 04:45 Urine Color Yellow 12/03/16 08:51 Urine Appearance Turbid (Clear) H 12/03/16 08:51 Urine pH 6.0 (5.0-8.0) 12/03/16 08:51 Ur Specific [place] 1.011 (1.001-1.035) 12/03/16 08:51 Urine Protein 3+ (Negative) H 12/03/16 08:51 Urine Glucose (UA) 3+ (Negative) H 12/03/16 08:51 Urine Ketones Negative (Negative) 12/03/16 08:51 Urine Blood Large (Negative) H 12/03/16 08:51 Urine Nitrite Negative (Negative) 12/03/16 08:51 Urine Bilirubin Negative (Negative) 12/03/16 08:51 Urine Urobilinogen <2.0 mg/dL (<2.0) 12/03/16 08:51 Ur Leukocyte Esterase Large (Negative) H 12/03/16 08:51 Urine RBC 56 /hpf (0-5) H 12/03/16 08:51 Urine WBC >182 /hpf (0-5) H 12/03/16 08:51 Urine Bacteria Many /hpf (None) H 12/03/16 08:51 C. difficile (EIA) Intrp Negative (Negative) 12/06/16 15:32 Blood Type A Positive 12/05/16 18:00 Blood Type Recheck No 12/05/16 18:00 Antibody Screen POSITIVE 12/05/16 18:00 Antibody Identification Anti-K 12/05/16 18:00 Direct Antiglob Test Negative 12/05/16 18:00 Crossmatch See Detail 12/05/16 18:00 Spec Expiration Date 12/08/2016 - 229912/05/16 18:00 Microbiology 12/03/16 07:30 Blood Blood Culture - Final No Growth after 144 hours 12/04/16 16:10 Sputum Gram Stain - Final 12/04/16 16:10 Sputum Sputum Culture - Final 12/03/16 08:51 Urine,Catheterized Urine Culture - Final Klebsiella pneumoniae - Imaging and Cardiology Chest x-ray: report reviewed (No new infiltrates) Assessment and Plan (1) Cardiac arrest Status: Acute (2) Aspiration pneumonia Narrative/Plan: 66-year-old female who suffers superobesity had a cardiopulmonary arrest. She had a protracted resuscitation and now remains in intensive care unit intubated sedated and mechanically ventilated. Attempts for withdrawal of her sedation occurred not highly effective. The patient was not responding well except some eye opening did occur. The patient is showing little improvement and there will likely be needs tracheostomy and PEG tube if the current course of therapy is to continue. The family however may consider a Comfort Care option if there is evidence of extensive anoxic brain injury. At this time the metronidazole was discontinued. She is finishing up her course of antibiotic therapy for aspiration pneumonia and her Klebsiella urinary tract infection. The leukocytosis is improved. She does have acute renal failure. Blood sugars been difficult to control and overall has a very poor prognosis. Discussion tomorrow as for the possibility of tracheostomy and PEG tube. Likely they will not proceed. Status: Acute (3) UTI due to Klebsiella species Status: Acute
[2016-12-11] MEDS: FUROSEMIDE 250 MG in SODIUM CHLORIDE 0.9% 225 ML IVP SCH ×2 (16:35→19:35)
[2016-12-11] MEDS: ENOXAPARIN 30 MG/0.3 ML SYRINGE SQ SCH (16:35)
[2016-12-11 18:25] LABS: Glucose,Whole Blood 231 mg/dL (75-99)
--- NOTE | 2016-12-11 19:30 | P.PN ---
Progress Note - Text DATE OF SERVICE: 12/11/2016 PRESENTING COMPLAINT: Shortness of breath, cardiac arrest INTERVAL HISTORY: This patient presented after developing an acute exacerbation of CHF and subsequent cardiac arrest. Sedation lifted today, patient responded to direct commands of squeezing hands. Patient did become agitated while off sedation and had to be restarted due to asynchrony with the vent. NIpride drip remains on however remains on many multiple antihypertensives listed below. Hypertension felt to be more of a central problem, CT scan did not reveal any acute process. Hypertension may also be directly related to patient's renal status. Breathing comfortably on the vent FiO2 50%, PEEP of 5, rate of 24. Discussion had with and son-in-law regarding future planning either long -term care facility or possibly terminal wean. Family is expecting another daughter to come in from out of town and the discussion will be had at the bedside tomorrow with the fisher reef net in the ICU team. Ventilator settings: Assist control/volume control, rate 24, FiO2 50%, PEEP 5. MEDICATIONS: Propofol, insulin drip, Protonix, tube feeding at 34 ml/hr. Catapres 0.2 mg, nitroprusside drip, Norvasc, Coreg, Lasix drip, labetalol, Imdur, Solu-Medrol sodium bicarbonate Heart rhythm: sinus rhythm rate 60s to 70s. REVIEW OF SYSTEMS: Patient intubated. CURRENT MEDICATIONS As detailed above PHYSICAL EXAM: VITAL SIGNS: Temperature 98.3, pulse 77 respirations 13 blood pressure 147/40 oxygen saturation 96% on 50% FiO2 mechanical ventilation. GENERAL APPEARANCE:Lying in bed, breathing comfortably on the vent. EYES: Pupils equal. Conjunctiva normal. NECK: JVD unable to assess. Mass not palpable. RESPIRATORY: Respiratory effort increased, on mechanical ventilation Lungs increased breath sounds secretions noted . CARDIOVASCULAR: First and second sounds noted. Moderate edema. ABDOMEN: Soft. Distended, Liver and spleen not palpable. No tenderness. No mass palpable. PSYCHIATRY: Unable to assess NEUROLOGICAL: Pupils sluggish secondary to sedation, opens eyes to noxious stimuli when lifted from sedation was able to squeeze hands. INVESTIGATIONS: I blood cell count 11.6, hemoglobin 10.0, platelet count 140, calcium 8.1, phosphorus 7.1, magnesium 2.8. Chest x-ray reveals stable bilateral infiltrate and pleural effusions ASSESSMENT: 1. Acute on chronic congestive heart failure exacerbation from diastolic dysfunction, secondary to coronary artery disease, ejection fraction 55% with a recent cardiac catheterization, worsening. 2. Cardiac arrest in a patient with underlying coronary artery disease. 3. Chronic obstructive pulmonary disease and an ex-smoker. 4. Chronic kidney disease stage III from diabetic nephropathy and hypertensive nephrosclerosis. 5. Chronic menorrhagia pending outpatient surgery. 6. Chronic diverticulosis. 7. 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 8. Malignant hypertension, patient requiring IV nitroprusside. 9. Right arm weakness from old stroke. 10. Diabetes mellitus type 2 chronically on insulin. 11. Obesity, body mass index greater than 40, morbid type. 12. Coronary artery disease with stent to the left anterior descending artery and right coronary artery. 13. Hyperlipidemia. 14. Fibromyalgia. 15. Primary osteoarthritis of multiple joints bilateral 16. Urinary stress incontinence 17. Depression not otherwise specified 18. Acute hypoxic respiratory failure secondary to acute pulmonary edema from underlying coronary artery disease and congestive heart failure, on ventilator support, slow to wean. 19. Recurrent chronic blood loss anemia secondary to menorrhagia. 20. Acute cardiogenic shock from underlying coronary artery disease, slowly improving. 21. Urinary tract infection, secondary to outflow obstruction, organism Klebsiella pneumoniae, present on admission. 22. Acute blood loss anemia, 10.1 hemoglobin , secondary to chronic menorrhagia 1 unit packed red cells given improving 23. Acute renal failure , acute tubular necrosis, multifactorial, slow to respond. 24. Multiple medical problems. 25. Acute hypoxic respiratory failure on ventilator support. 26. Hyperphosphatemia secondary to renal failure, maintained on phosphate binder. PLAN: Patient remains hypertensive even though on many multiple antihypertensives including Nipride. Nephrology considering dialysis in order to remove fluid and possibly help with blood pressure thereby reducing medication load patient is on. Metronidazole was discontinued today will complete antibiotic course of Zosyn for aspiration pneumonia and UTI. Expecting a decision tomorrow regarding terminal wean or extended care facility for the patient family all family members will be present to make a decision regarding what's to be done next. Discussion had this evening with , daughter, son-in-law regarding plans. Condition remains guarded all family members understand. ASSISTANT QUALITY MANAGER statement: Patient was seen and examined by nurse practitioner Connie Livingston and all elements of the case discussed with attending is Dr. Aguila
[2016-12-11] MEDS: INSULIN GLARGINE 100 UNIT/ML 10 ML VIAL SQ SCH (20:36)
[2016-12-11] MEDS: NYSTATIN 100,000 UNIT/ML SUSP 500,000 UNIT/5 ML CUP PO SCH (21:10)
[2016-12-12] MEDS: PROPOFOL 500 MG in EMPTY BAG 1 BAG IV SCH ×5 (00:21→08:01)
[2016-12-12] MEDS: INSULIN LISPRO (humaLOG) 300 UNIT/3 ML VIAL SQ SCH ×4 (00:22→13:35)
[2016-12-12] MEDS: methylPREDNISolone SOD SUCCI 125 MG/2 ML VIAL IV SCH ×2 (00:22→06:37)
[2016-12-12 00:23] LABS: Glucose,Whole Blood 192 mg/dL (75-99)
[2016-12-12] MEDS: fentaNYL (PF) 50 MCG/ML 2 ML AMP IV PRN (00:26)
[2016-12-12] MEDS: PIPERACILLIN-TAZOBACTAM 3.375 GM in DEXTROSE/WATER 1 50ML.BAG IVPB SCH ×2 (02:39→19:48)
[2016-12-12 05:05] LABS: Anisocytosis Slight; Basophils % (A) 0 %; CH 27.4; CHCM 31.3; Eosinophils % (A) 0 %; HCT 31.8 % (34.0-46.0); HDW 3.99; HGB 10.1 gm/dL (11.4-16.0); Hypochromasia Marked; Luc # (Auto) 0.05; Luc % (Auto) 0; Lymphocytes # (A) 0.3 k/uL (1.0-4.8); Lymphocytes % (A) 2 %; MCH 27.7 pg (25.0-35.0); MCHC 31.7 g/dL (31.0-37.0); MCV 87.4 fL (80.0-100.0); Mean Platelet Volume 9.8; Monocytes # (A) 0.4 k/uL (0-1.0); Monocytes % (A) 4 %; Neutrophils % (A) 94 %; Poikilocytosis Slight; RBC 3.64 m/uL (3.80-5.40); RDW 17.1 % (11.5-15.5); WBC 10.7 k/uL (3.8-10.6); WBC (Perox) 10.63
[2016-12-12 05:24] LABS: Calcium 8.5 mg/dL (8.4-10.2); Magnesium 2.8 mg/dL (1.6-2.3); Phosphorous 6.9 mg/dL (2.5-4.5); Potassium 4.3 mmol/L (3.5-5.1); Total Bilirubin 0.2 mg/dL (0.2-1.3); Total Protein 4.9 g/dL (6.3-8.2)
[2016-12-12 06:39] LABS: Glucose,Whole Blood 161 mg/dL (75-99)
--- NOTE | 2016-12-12 07:29 | PN ---
DATE OF SERVICE: 12/11/2016 ATTENDING NOTE: This patient was seen and examined by me earlier today. I reviewed the note of my nurse practitioner, Ms. Livingston, discussed additional findings below. This is a patient admitted with CHF exacerbation, has been in the ICU and remains on the ventilator. FIO2 50%. Drips include propofol and Lasix. Tube feeding continues. and daughter at the bedside. Patient typically had ( ) was squeezing fingers, blood pressure remains high including nitrite drip. On exam, blood pressure 140/70. LUNGS: Decreased breath sounds. Neurologically patient sedated. ASSESSMENT: 1. Acute on chronic congestive heart failure exacerbation from diastolic dysfunction, ejection fraction of 55%. 2. Acute renal failure, probably from acute tubular necrosis, slow to respond. Patient's BUN has gone from 40 up to 125 that is worsening. PLAN: Care was discussed with the patient and daughter at the bedside. The daughter is coming in tonight. Family is going to have a family discussion. Overall prognosis is not good. Follow. The patient remains critically ill.
--- NOTE | 2016-12-12 07:50 | XR ---
EXAMINATION TYPE: XR chest 1V portable DATE OF EXAM: 12/12/2016 CLINICAL HISTORY: Difficulty breathing progress study. TECHNIQUE: Single AP portable semiupright view of the chest is obtained. COMPARISON: Chest x-ray from one day earlier FINDINGS: An endotracheal tube, left-sided PICC line, and orogastric tube are stable in appearance. There is persistent small to moderate-sized bilateral pleural effusions and associated bibasilar atel ectasis and/or infiltrate. Central vascular congestion and cardiomegaly are redemonstrated. No pneumo thorax is seen bilaterally. Multilevel spurring and spine is redemonstrated. IMPRESSION: Overall stable findings, suspect CHF exacerbation as there is cardiomegaly with central vascular congestion and small to moderate-sized bilateral pleural effusions with associated bibasila r atelectasis and/or infiltrate all redemonstrated.
[2016-12-12] MEDS: CHLORHEXIDINE GLUCONATE 15 ML CUP MUCOUS MEM SCH (07:55)
[2016-12-12] MEDS: ENOXAPARIN 30 MG/0.3 ML SYRINGE SQ SCH (07:55)
[2016-12-12] MEDS: CARVEDILOL 12.5 MG TAB PO SCH (07:55)
[2016-12-12] MEDS: cloNIDine HCL 0.1 MG TAB PO SCH (07:55)
[2016-12-12] MEDS: ISOSORBIDE MONONITRATE ER 30 MG TAB.ER.24H PO SCH (07:56)
[2016-12-12] MEDS: CALCIUM ACETATE 667 MG CAP PO SCH ×2 (07:56→13:10)
[2016-12-12] MEDS: NIFEdipine 10 MG CAP PO SCH ×2 (07:58→13:10)
[2016-12-12] MEDS: NYSTATIN 100,000 UNIT/ML SUSP 500,000 UNIT/5 ML CUP PO SCH ×2 (07:59→13:10)
[2016-12-12] MEDS: PANTOPRAZOLE 40 MG/10 ML VIAL IV SCH (08:00)
[2016-12-12] MEDS: SODIUM BICARBONATE TAB 650 MG TAB PO SCH (08:00)
[2016-12-12] MEDS: IPRATROPIUM-ALBUTEROL 3 ML NEB INHALATION SCH ×2 (08:29→11:28)
[2016-12-12 08:33] LABS: ABG Base Excess -5.2 mmol/L; ABG HCO3 19 mmol/L (21-25); ABG PCO2 36 mmHg (35-45); ABG PH 7.35 (7.35-7.45); ABG PO2 111 mmHg (83-108); ABG TCO2 21 mmol/L (19-24)
--- NOTE | 2016-12-12 09:33 | P.PN ---
Subjective Patient is seen in follow for acute kidney injury and volume overload. Patient had a cardiac arrest this admission and is currently ventilator dependent. Her blood pressures have been better controlled and she is now off nitride drip. She is maintained on Lasix drip running at 10 mL an hour and is maintaining a net negative fluid balance. Renal function is worse today with creatinine at 2.9. Vital signs are stable. General: The patient appeared well nourished and normally developed. Ventilator dependent. HEENT: Head exam is unremarkable. Neck is without jugular venous distension. LUNGS: Diffuse rhonchi. Breath sounds decreased. HEART: Rate and Rhythm are regular. First and second heart sounds normal. No murmurs, rubs or gallops. ABDOMEN: Abdominal exam reveals normal bowel sounds. Non-tender and non- distended. No evidence of peritonitis. EXTREMITITES: Trace edema. Objective - Vital Signs Vital signs: Vital Signs Temp 99.1 F 12/12/16 07:00 Pulse 75 12/12/16 09:00 Resp 17 12/12/16 09:00 BP 156/69 12/12/16 09:00 Pulse Ox 99 12/12/16 09:00 Intake & Output 12/11/16 12/12/16 12/12/16 18:59 06:59 18:59 Intake Total 3474.127 1757.325 331.244 Output Total 1200 2355 575 Balance -152.992 -1029.675 -243.756 Weight 114 kg 114 kg Intake: IV 120 180 30 0.9 NS 120 130 30 Piperacillin-Tazobactam 3 50 .375 gm In Dextrose/Water 1 50ml.bag @ 12.5 mls/hr IVPB Q12H [facility] Rx#: [id number] Intake, IV Titration 453.008 426.325 93.244 Amount Furosemide 250 mg In 152.583 30.167 Sodium Chloride 0.9% 225 ml @ 10 MG/HR 10 mls/hr IVP .Q24H [facility] Rx#: [id number] Nitroprusside 100 mg In 216.313 178.954 53.605 Dextrose 5% in Water 250 ml @ Titrate IV .Q0M [facility] Rx#:[id number] Propofol 500 mg In Empty 84.112 217.204 39.639 Bag 1 bag @ Titrate IV . Q0M [facility] Rx#:[id number] Tube Feeding 444 629 148 Other 30 90 60 Output: Urine 1200 6487 575 Other: Voiding Method Indwelling Catheter Indwelling Catheter Indwelling Catheter # Bowel Movements 1 1 1 ABP, PAP, CO, CI - Last Documented Arterial Blood Pressure 162/53 - Labs CBC & Chem 7: 12/12/16 05:00 12/12/16 05:00 Labs: Abnormal Lab Results - Last 24 Hours (Table) 12/11/16 12/11/16 12/12/16 Range/Units 12:30 18:23 00:21 WBC (3.8-10.6) k/uL RBC (3.80-5.40) m/uL Hgb (11.4-16.0) gm/dL Hct (34.0-46.0) % RDW (11.5-15.5) % Plt Count (150-450) k/uL Neutrophils # (1.3-7.7) k/uL Lymphocytes # (1.0-4.8) k/uL ABG pO2 (83-108) mmHg ABG HCO3 (21-25) mmol/L ABG O2 Saturation (94-97) % Sodium (137-145) mmol/L Chloride (98-107) mmol/L Carbon Dioxide (22-30) mmol/L BUN (7-17) mg/dL Creatinine (0.52-1.04) mg/dL Glucose (74-99) mg/dL POC Glucose (mg/dL) 228 H 231 H 192 H (75-99) mg/dL Phosphorus (2.5-4.5) mg/dL Magnesium (1.6-2.3) mg/dL AST (14-36) U/L Total Protein (6.3-8.2) g/dL Albumin (3.5-5.0) g/dL 12/12/16 12/12/16 12/12/16 Range/Units 05:00 05:00 06:38 WBC 10.7 H (3.8-10.6) k/uL RBC 3.64 L (3.80-5.40) m/uL Hgb 10.1 L (11.4-16.0) gm/dL Hct 31.8 L (34.0-46.0) % RDW 17.1 H (11.5-15.5) % Plt Count 136 L (150-450) k/uL Neutrophils # 10.0 H (1.3-7.7) k/uL Lymphocytes # 0.3 L (1.0-4.8) k/uL ABG pO2 (83-108) mmHg ABG HCO3 (21-25) mmol/L ABG O2 Saturation (94-97) % Sodium 146 H (137-145) mmol/L Chloride 116 H (98-107) mmol/L Carbon Dioxide 19 L (22-30) mmol/L BUN 138 H* (7-17) mg/dL Creatinine 2.90 H (0.52-1.04) mg/dL Glucose 184 H (74-99) mg/dL POC Glucose (mg/dL) 161 H (75-99) mg/dL Phosphorus 6.9 H (2.5-4.5) mg/dL Magnesium 2.8 H (1.6-2.3) mg/dL AST 11 L (14-36) U/L Total Protein 4.9 L (6.3-8.2) g/dL Albumin 2.6 L (3.5-5.0) g/dL 12/12/16 Range/Units 08:19 WBC (3.8-10.6) k/uL RBC (3.80-5.40) m/uL Hgb (11.4-16.0) gm/dL Hct (34.0-46.0) % RDW (11.5-15.5) % Plt Count (150-450) k/uL Neutrophils # (1.3-7.7) k/uL Lymphocytes # (1.0-4.8) k/uL ABG pO2 111 H (83-108) mmHg ABG HCO3 19 L (21-25) mmol/L ABG O2 Saturation 98.0 H (94-97) % Sodium (137-145) mmol/L Chloride (98-107) mmol/L Carbon Dioxide (22-30) mmol/L BUN (7-17) mg/dL Creatinine (0.52-1.04) mg/dL Glucose (74-99) mg/dL POC Glucose (mg/dL) (75-99) mg/dL Phosphorus (2.5-4.5) mg/dL Magnesium (1.6-2.3) mg/dL AST (14-36) U/L Total Protein (6.3-8.2) g/dL Albumin (3.5-5.0) g/dL Assessment and Plan Plan: Assessment: #1. Nonoliguric acute kidney injury secondary to ischemic ATN secondary to cardiac arrest as well as diuresis. Creatinine up to 2.9 today. BUN disproportionately elevated due to IV steroids. #2. Volume overload. Improving. #3. Hypertension. Now better controlled. Off Nipride drip. Partially volume sensitive. #4. Status post cardiopulmonary arrest. #5. Hypernatremia secondary to water diuresis. #6. Metabolic acidosis secondary to acute kidney injury. Plan: Continue Lasix drip. Increase free water to 50 mL an hour with tube feeds. Continue sodium bicarbonate supplementation. Avoid nephrotoxic agents and hypotensive episodes. Continue with current antihypertensives. Family meeting today with possible comfort measures.
[2016-12-12] MEDS: LABETALOL 5 MG/ML VIAL MDV IVP PRN (10:20)
[2016-12-12] MEDS ORDERED: MORPHINE SULFATE 2 MG/ML SYRINGE IVP PRN (10:29)
--- NOTE | 2016-12-12 10:34 | PN ---
A 66-year-old female who apparently had an [id number] cardiopulmonary arrest. She had a prolonged resuscitation of about 20 minutes or so. She eventually had return of spontaneous circulation. She likely sustained significant anoxic/metabolic brain injury. The patient has been here in the unit since the november at which time she was intubated. The patient's family apparently does not want a tracheal or PEG. The nurse wants me to talk to them today about withdrawing life support possibly. She still is a FULL CODE. She should definitely be a DNR at the very least. The patient's situation remains about the same. I am reading the note from my partner Dr. Caceres yesterday. The patient could not tolerate being off the propofol. The patient became very agitated and apparently the blood pressure went up. Anyway, the patient is on a number of different medications. Currently, vent settings are the assist control mode rate of 24, tidal volume of 450, FiO2 of 50%, PEEP of 5. Blood gases show pO2 of 111, pCO2 of 36, pH 7.35. This is consistent with a mild metabolic acidosis. The patient's IV is 0.9 at 10 mL an hour. Diprivan is currently off. Nipride is off. The patient's Lasix is running at 10 mg an hour. Nepro is running at 37 mL an hour with a goal of 37. CT of the brain was negative for any acute abnormality. No EEG was done. Overall the patient's respiratory status and neurologic status has remained stable. No purposeful activity. She does over ( ) the ventilator. She does have a gag reflex. Anyway, the patient is likely in a vegetative state. Current vital signs include a temperature 99.1, heart rate 75, respiratory rate 17, blood pressure 156/69, mean 98, and saturations are 99%. Currently appears in no acute distress. No purposeful movement. Lots of eye opening and closing and rolling of the eyes, head movements and tongue thrusting, but nothing purposeful. The patient does not respond to verbal or painful stimuli. HEENT examination is grossly unremarkable. Mucous membranes are moist. There is an orally placed endotracheal tube and NG tube. NECK: Supple. Cardiovascular examination reveals regular rhythm and rate. Heart sounds are distant. No murmur. S1, S2 normal. Lungs reveal coarse rhonchi. Breath sounds are diminished. ABDOMEN: Obese. Bowel sounds are heard. Extremities are intact. No cyanosis, clubbing, or edema. Neurologic examination could not be adequately performed other than what was mentioned above. Lab data includes a white count of 10.7, hemoglobin 10.1, hematocrit 31.8, platelet count 136,000. Blood gases never been noted. Sodium 146, potassium 4.3, chloride 116, CO2 is 19. BUN and creatinine were 138 and 2.90. Anion gap is 11. The rest of the labs are reviewed. Microbiology is showing Klebsiella pneumoniae in the urine. Laboratory data shows what appears to be some heart failure/fluid overload. Medications are reviewed. ASSESSMENT: 1. Acute cardiopulmonary arrest with prolonged resuscitative effort, in a patient with a history of both chronic obstructive pulmonary disease and congestive heart failure and suspected acute anoxic brain injury. 2. Acute hypoxemic respiratory failure. 3. Congestive heart failure/pulmonary edema. 4. Chronic obstructive pulmonary disease with chronic obstructive pulmonary disease exacerbation. 5. Shock, resolved. 6. Renal failure. 7. Cerebrovascular accident with some residual right-sided weakness. 8. Anoxic/hypoxemic encephalopathy. 9. History of uterine cancer. 10. Diastolic dysfunction. 11. Coronary artery disease. 12. Diabetes mellitus. 13. Hyperlipidemia. 14. Obesity. 15. Fibromyalgia. 16. Hyperlipidemia. 17. Hypothyroidism. 18. Klebsiella pneumoniae urinary tract infection. 19. Fluid overload. PLAN: I will talk to the family. At the very least, she should be a DNR. If the family wishes to continue life support efforts, the patient should have a trach and PEG. She could be shipped out into [facility] or someplace like that. If the family wishes no more, I do not think it is unreasonable at this point to withdrawal from life support and make the patient comfort measures only. We will discuss this with the family and see where they want to go. CRITICAL CARE TIME: 38 minutes. No additional recommendations.
[2016-12-12] MEDS: MORPHINE SULFATE 4 MG/ML SYRINGE IVP PRN ×3 (10:46→15:36)
[2016-12-12] MEDS: NITROPRUSSIDE 100 MG in DEXTROSE 5% IN WATER 250 ML IV SCH ×2 (11:09)
[2016-12-12] MEDS: LORazepam 2 MG/ML SYRINGE IV PRN ×2 (11:34→15:36)
[2016-12-12 11:41] VITALS: BMI 44.5
[2016-12-12 13:36] LABS: Glucose,Whole Blood 249 mg/dL (75-99)
[2016-12-12 15:19] VITALS: TEMP 99
[2016-12-12 16:12] VITALS: BP 181/54; PULSE 76; RESP 16
[2016-12-12] MEDS ORDERED: ATROPINE OPHTH SOLN 1% 5ML BTL SUBLINGUAL PRN (19:59)
[2016-12-12] MEDS ORDERED: ACETAMINOPHEN SUPPOSITORY 650 MG SUPP RECTAL PRN (19:59)
[2016-12-12] MEDS ORDERED: MORPHINE SULFATE (100 MG/2 ML) 100 MG in SODIUM CHLORIDE 0.9% 100 ML IV SCH (20:00)
--- NOTE | 2016-12-16 12:37 | DS ---
DATE OF ADMISSION: 12/03/2016 DATE OF DISCHARGE: 12/12/2016 FINAL DIAGNOSES: 1. Acute on chronic congestive heart failure from diastolic dysfunction secondary to coronary artery disease, ejection fraction 55% with recent cardiac cath. 2. Cardiac catheterization in patient with underlying coronary artery disease present on admission. 3. Chronic obstructive pulmonary disease in an ex-smoker, exacerbation. 4. Chronic kidney stage II from diabetic nephropathy and hypertensive nephrosclerosis. 5. Chronic menorrhagia. Patient was pending outpatient surgery. 6. Chronic diverticulosis. 7. 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 8. Malignant hypertension. The patient on IV nitroprusside. 9. Right arm weakness from old stroke. 10. Diabetes mellitus type 2 chronically on insulin. 11. Obesity, body mass index greater than 40, morbid obesity. 12. Coronary artery disease with stent to the left anterior descending artery and right coronary artery. 13. Hyperlipidemia. 14. Fibromyalgia. 15. Primary osteoarthritis in multiple joints, bilateral. 16. Urinary stress incontinence, chronic. 17. Depression, not otherwise specified. 18. Acute hypoxic respiratory failure secondary to acute pulmonary edema from underlying coronary artery disease and congestive heart failure on ventilator support. 19. Recurrent chronic blood loss anemia secondary menorrhagia. 20. Acute cardiogenic shock from underlying coronary artery disease. 21. Urinary tract infection secondary to outflow obstruction growing Klebsiella pneumoniae, present on admission. 22. Acute blood loss anemia secondary to chronic menorrhagia and blood draws. 23. Acute renal failure, acute tubular necrosis, multifactorial, slow to respond. 24. Acute hypoxic respiratory failure on ventilator support. 25. Hyperphosphatemia secondary to renal failure. HOSPITAL COURSE: This very pleasant lady with multiple problems presented with congestive heart failure exacerbation, urinary tract infection, acute respiratory failure, also had a cardiac arrest when she came in. Pretty much remained on the ventilator with pressure support, antibiotics. Continued to deteriorate in spite of all interventions. Multiple discussions held with the and daughters. Finally decided to make the patient hospice. More details in the hospital chart. CONSULTATIONS: 1. Dr. Sahu from Infectious Disease. 2. Dr. Caceres from Pulmonary. 3. Dr. Morris from Nephrology. DISPOSITION: Inpatient hospice. On examination, lungs decreased breath sounds, crackles. Also decreased sensorium. CARDIOVASCULAR: First and second sounds normal. Discharge planning more than 35 minutes in inpatient hospice/[facility].
== END 2016-12-12 16:09 | disposition hospice, inpatient (51) | DRG 280 ==
LOC: EC 07:05 → 6ICU 09:43
PROVIDERS: ADMIT Hospitalist; ATTEND Hospitalist
PROC: 04HY32Z Insertion of Monitoring Device into Lower Artery, Percutaneous Approach (ICD-10-PCS; 2016-12-03)
PROC: 5A1955Z Respiratory Ventilation, Greater than 96 Consecutive Hours (ICD-10-PCS; 2016-12-03)
PROC: 03HY32Z Insertion of Monitoring Device into Upper Artery, Percutaneous Approach (ICD-10-PCS; 2016-12-03)
PROC: 0BH17EZ Insertion of Endotracheal Airway into Trachea, Via Natural or Artificial Opening (ICD-10-PCS; 2016-12-03)
PROC: 0T9B70Z Drainage of Bladder with Drainage Device, Via Natural or Artificial Opening (ICD-10-PCS; 2016-12-03)
PROC: 0D9670Z Drainage of Stomach with Drainage Device, Via Natural or Artificial Opening (ICD-10-PCS; 2016-12-03)
PROC: 3E0G76Z Introduction of Nutritional Substance into Upper GI, Via Natural or Artificial Opening (ICD-10-PCS; 2016-12-05)
PROC: 30243N1 Transfusion of Nonautologous Red Blood Cells into Central Vein, Percutaneous Approach (ICD-10-PCS; 2016-12-06)
PROC: 02HV33Z Insertion of Infusion Device into Superior Vena Cava, Percutaneous Approach (ICD-10-PCS; principal; 2016-12-07 14:15)
DX: I13.0 Hypertensive heart and chronic kidney disease with heart failure and stage 1 through stage 4 chronic kidney disease, or unspecified chronic kidney disease (principal); N17.0 Acute kidney failure with tubular necrosis; I21.4 Non-ST elevation (NSTEMI) myocardial infarction; J96.21 Acute and chronic respiratory failure with hypoxia; R57.0 Cardiogenic shock; A41.9 Sepsis, unspecified organism; J69.0 Pneumonitis due to inhalation of food and vomit; G93.1 Anoxic brain damage, not elsewhere classified; I50.33 Acute on chronic diastolic (congestive) heart failure; E87.2 Acidosis; D62 Acute posthemorrhagic anemia; Z99.11 Dependence on respirator [ventilator] status; Z68.41 Body mass index [BMI] 40.0-44.9, adult; J44.1 Chronic obstructive pulmonary disease with (acute) exacerbation; N39.0 Urinary tract infection, site not specified; I69.351 Hemiplegia and hemiparesis following cerebral infarction affecting right dominant side; E87.0 Hyperosmolality and hypernatremia; E87.4 Mixed disorder of acid-base balance; R34 Anuria and oliguria; E11.21 Type 2 diabetes mellitus with diabetic nephropathy; I27.2 Other secondary pulmonary hypertension; I25.10 Atherosclerotic heart disease of native coronary artery without angina pectoris; E66.01 Morbid (severe) obesity due to excess calories; T38.0X5A Adverse effect of glucocorticoids and synthetic analogues, initial encounter; N18.3 Chronic kidney disease, stage 3 (moderate); B96.1 Klebsiella pneumoniae [K. pneumoniae] as the cause of diseases classified elsewhere; E11.22 Type 2 diabetes mellitus with diabetic chronic kidney disease; C55 Malignant neoplasm of uterus, part unspecified; E83.39 Other disorders of phosphorus metabolism; Z66 Do not resuscitate; Z51.5 Encounter for palliative care; R00.1 Bradycardia, unspecified; E78.5 Hyperlipidemia, unspecified; E03.9 Hypothyroidism, unspecified; K29.50 Unspecified chronic gastritis without bleeding; T50.1X5A Adverse effect of loop [high-ceiling] diuretics, initial encounter; M79.7 Fibromyalgia; N92.0 Excessive and frequent menstruation with regular cycle; I25.2 Old myocardial infarction; N13.9 Obstructive and reflux uropathy, unspecified; K42.9 Umbilical hernia without obstruction or gangrene; I95.9 Hypotension, unspecified; F40.240 Claustrophobia; F32.9 Major depressive disorder, single episode, unspecified; K58.9 Irritable bowel syndrome, unspecified; I72.4 Aneurysm of artery of lower extremity; N26.1 Atrophy of kidney (terminal); K57.90 Diverticulosis of intestine, part unspecified, without perforation or abscess without bleeding; M19.91 Primary osteoarthritis, unspecified site; N39.3 Stress incontinence (female) (male); H40.9 Unspecified glaucoma; G89.29 Other chronic pain; G43.909 Migraine, unspecified, not intractable, without status migrainosus; F41.9 Anxiety disorder, unspecified; H26.9 Unspecified cataract; M54.9 Dorsalgia, unspecified; Z95.5 Presence of coronary angioplasty implant and graft; Z87.891 Personal history of nicotine dependence; Z99.81 Dependence on supplemental oxygen; Z79.899 Other long term (current) drug therapy; Z79.4 Long term (current) use of insulin; Z80.0 Family history of malignant neoplasm of digestive organs; Z99.3 Dependence on wheelchair; Z92.3 Personal history of irradiation; Z90.49 Acquired absence of other specified parts of digestive tract; Z83.79 Family history of other diseases of the digestive system; Z82.3 Family history of stroke; Z82.49 Family history of ischemic heart disease and other diseases of the circulatory system; Z88.5 Allergy status to narcotic agent; Z88.8 Allergy status to other drugs, medicaments and biological substances; Z79.82 Long term (current) use of aspirin; Z87.19 Personal history of other diseases of the digestive system
CPT/HCPCS: 31500; 36415; 36556; 36569; 36600; 51702; 70450; 71010; 76604; 76937; 80048; 80053; 81001; 82550; 82553; 82805; 83036; 83605; 83735; 84100; 84430; 84484; 85025; 85027; 85610; 85730; 86850; 86870; 86880; 86900; 86901; 86902; 86920; 87040; 87070; 87077; 87086; 87186; 87205; 87324; 92950; 93005; 94002; 94003; 94640; 96361; 96365; 96366; 96368; 96375; 99291; 99292

== ENCOUNTER 2016-12-12 16:19 | Inpatient (IN) | payer OTHER ==
[2016-12-12 16:32] VITALS: BP 184/58; PULSE 76; RESP 30; TEMP 99.2; BMI 44.5
[2016-12-12] MEDS ORDERED: ACETAMINOPHEN SUPPOSITORY 650 MG SUPP RECTAL PRN (16:38)
[2016-12-12] MEDS ORDERED: SCOPOLAMINE 1.5MG/72HR PATCH TRANSDERM PRN (16:38)
[2016-12-12] MEDS ORDERED: MORPHINE SULFATE 4 MG/ML SYRINGE IV PRN (16:38)
[2016-12-12] MEDS ORDERED: LORazepam 2 MG/ML SYRINGE IV PRN (16:38)
[2016-12-12] MEDS ORDERED: DRY MOUTH SPRAY 44.3 SPRAY/44.3 ML SPRAY MUCOUS MEM PRN (16:38)
[2016-12-12] MEDS ORDERED: ONDANSETRON 4 MG/2 ML VIAL IVP PRN (16:38)
[2016-12-12] MEDS ORDERED: ARTIFICIAL TEARS-HYPROMELLOSE DROPS 15 ML BTL BOTH EYES PRN (16:38)
[2016-12-12] MEDS ORDERED: MORPHINE SULFATE (100 MG/2 ML) 100 MG in SODIUM CHLORIDE 0.9% 100 ML IV SCH (17:30)
[2016-12-12] MEDS ORDERED: IPRATROPIUM-ALBUTEROL 3 ML NEB INHALATION PRN (18:11)
== END 2016-12-13 07:45 | disposition expired | DRG 291 ==
LOC: 6ICU 16:19 → 4MS4W 20:31
PROVIDERS: ADMIT Hospitalist; ATTEND Hospitalist
DX: I13.0 Hypertensive heart and chronic kidney disease with heart failure and stage 1 through stage 4 chronic kidney disease, or unspecified chronic kidney disease (principal); I50.33 Acute on chronic diastolic (congestive) heart failure; N17.0 Acute kidney failure with tubular necrosis; J96.01 Acute respiratory failure with hypoxia; I69.951 Hemiplegia and hemiparesis following unspecified cerebrovascular disease affecting right dominant side; R57.0 Cardiogenic shock; E11.22 Type 2 diabetes mellitus with diabetic chronic kidney disease; N18.3 Chronic kidney disease, stage 3 (moderate); D50.0 Iron deficiency anemia secondary to blood loss (chronic); E66.9 Obesity, unspecified; I25.10 Atherosclerotic heart disease of native coronary artery without angina pectoris; K57.90 Diverticulosis of intestine, part unspecified, without perforation or abscess without bleeding; E78.5 Hyperlipidemia, unspecified; M79.7 Fibromyalgia; M19.90 Unspecified osteoarthritis, unspecified site; N39.3 Stress incontinence (female) (male); J44.9 Chronic obstructive pulmonary disease, unspecified; K31.819 Angiodysplasia of stomach and duodenum without bleeding; N92.0 Excessive and frequent menstruation with regular cycle; Z86.74 Personal history of sudden cardiac arrest; Z68.41 Body mass index [BMI] 40.0-44.9, adult; Z79.82 Long term (current) use of aspirin; Z79.4 Long term (current) use of insulin; Z79.899 Other long term (current) drug therapy; Z88.5 Allergy status to narcotic agent; Z88.8 Allergy status to other drugs, medicaments and biological substances; Z95.5 Presence of coronary angioplasty implant and graft